=== PATIENT | female | born 1940 | race Caucasian/White ===

== ENCOUNTER 2019-02-02 19:37 | Inpatient (IN) | payer MEDICARE, OTHER, SELFPAY ==
[2019-02-02 19:39] VITALS: BP 147/76; PULSE 105; RESP 13; TEMP 36.9; O2SAT 88; O2SAT 98; BMI 49.4
[2019-02-02 19:50] VITALS: BP 130/62; PULSE 90; RESP 17; O2SAT 99
--- NOTE | 2019-02-02 20:33 | EKG12_ITS ---
Test Reason : Blood Pressure : / mmHG Vent. Rate : 091 BPM Atrial Rate : 091 BPM P-R Int : 162 ms QRS Dur : 080 ms QT Int : 344 ms P-R-T Axes : 071 010 035 degrees QTc Int : 423 ms Normal sinus rhythm Low voltage QRS Borderline ECG Confirmed by PIERRE BRENNAN ([id number]), acquisition editor DEIRDRE DALY ([id number]) on 02/05/2019 11:01:45 AM Referred By: MOUNA Confirmed By:PIERRE BRENNAN
--- NOTE | 2019-02-02 20:36 | ED.DCSUM_ITS ---
- ER Visit Summary Date of Service: 02/02/19 Chief Complaint: Generalized fatigue and dyspnea History of Present Illness: The patient is a 78 F history of prior anemia, hypothyroidism and [id number] diabetes. Patient states for last 2 weeks she just has not had any energy. And is felt short of breath primarily with walking. No chest pain. Mild cough the last several days has been nonproductive. No fever. No abdominal pain. No vomiting or diarrhea. No melena or dysuria. Denies any new leg pain or swelling. No history of DVT or PE. No recent travel, surgery, mobilization or surgery. She denies any hemoptysis. Physical Examination: Well-appearing older female. Vital signs are stable. Pulse ox 98%. She does not look septic or toxic. H EENT exam unremarkable. Neck nontender. No lymphadenopathy. No JVD. Lungs clear all station bilaterally. Heart regular rhythm rate about 100 no murmur. Abdomen is obese but soft. Nontender nondistended. Normal bowel sounds no peritoneal signs. Patient is moving all 4 extremities. Neurovascular intact. Calves are nontender without cords. She does have trace edema both lower extremities which she states is chronic in her baseline. Neurologically she is awake alert with no focal motor deficits. Test Results: Chest x-ray 2 view shows elevated right hemidiaphragm and borderline cardiomegaly. No infiltrate no significant effusion. EKG shows sinus rhythm rate of 91 low voltage but unchanged from prior EKG 2007. CBC is a 7 white count. Hemoglobin 8.5 the most recent one done here was 5 years ago and 11.9. I do not have any old labs available for comparison otherwise. Her e lectrolyte are unremarkable normal creatinine and gap. Glucose of 158. Troponin is normal. TSH is also elevated 7.4 she may need her thyroid medications adjusted. She has chronic hypothyroidism. Emergency Department Course and Treatment: Older female with shortness of breath. Repeat exam unchanged. She denied discussed all of her test results and is comfortable with admission. Treatment Plan: I spoke to the hospitalist about admission. She will be typed and screened. Also school guaiac will be ordered. Disposition: Admission Impression: Acute dyspnea secondary to anemia Acute on chronic hypothyroidism History of diabetes This note was generated with [employer] software. It may contain incorrect words, spelling, and punctuation that were not noted in review of the chart prior to signing ED Disposition - Plan for ED Patient: Referrals: Anisa Ramirez MD [STAFF PHYSICIAN] -
--- NOTE | 2019-02-02 20:45 | RAD_ITS ---
STUDY: X-RAY CHEST REASON FOR EXAM: Female, 78 years old. Chest pain with shortness of breath. TECHNIQUE: PA and lateral views of the chest. COMPARISON: None. FINDINGS: Telemetry wires overlie the chest. There is elevation of the right hemidiaphragm with right basilar atelectasis. Minimal linear atelectasis is also noted at the left lung base. There is no acute infiltrate or mass. There is borderline cardiomegaly. Normal mediastinum and trent. Normal visualized pulmonary arteries. There is minimal atherosclerotic calcification of the aortic arch with tortuosity. There are diffuse degenerative changes of the visualized thoracic spine. Normal visualized ribs, clavicles, and shoulders. There is no demonstrated abnormality of the visualized soft tissue structures of the upper abdomen. RAD/Chest PA and Lateral IMPRESSION: Elevated right hemidiaphragm with bibasilar atelectasis and borderline cardiomegaly. There is no acute infiltrate or mass. Electronically Signed: Micah Lam DO at 21:11 EDT Tel [phone], Service support ,
[2019-02-02 21:02] LABS: Absolute Lymphocyte Count 1.59 X10^3/ul (0.83-4.51); Absolute Neutrophil Count 5.1 X10^3/uL (2.0-7.7); Basophil# 0.03 X10^3/uL; Basophil% 0.4 % (0-1); Eosinophil# 0.12 X10^3/uL; Eosinophils% 1.6 % (0-5); Hematocrit 29.7 % (37-47); Hemoglobin 8.5 g/dl (12.0-15.0); Lymphocyte # 1.59 X10^3/ul (4.0); Lymphocyte % 21.3 % (19-41); Mean Corp Hgb Conc 28.6 g/gl (32-36); Mean Corpuscular Hgb 28.1 pg (27.0-32.0); Mean Platelet Vol. 9.9 fl (6.2-12.0); Monocyte# 0.64 X10^3/uL; Monocyte% 8.6 % (0-10); Neutrophil # 5.08 X10^3/uL (2.7-7.7); Platelet Count 223 K/mm3 (150-450); RBC Distribution Width CV 13.7 % (11.6-14.6); RBC Distribution Width SD 46.9 fl (35.1-43.9); Red Blood Count 3.03 M/mm3 (4.2-5.4); White Blood Count 7.5 K/mm3 (4.4-11.0)
[2019-02-02 21:03] LABS: POSITIVE COUNT NO; POSITIVE DIFFERENTIAL NO; POSITIVE MORPHOLOGY NO
[2019-02-02 21:09] LABS: Anion Gap 3 (5-15); BUN 22 mg/dL (7-18); BUN/Creat Ratio 22.2 RATIO (10-20); Calcium,Total 8.9 mg/dL (8.5-10.1); Chloride 105 mmol/L (98-107); Creatinine, Serum 0.99 mg/dL (0.55-1.02); EST Glomerular Filtration Rate 57 mL/min (>60); Est Glom Filt Rate - Afr Amer 70 mL/min (>60); Estimated Creatinine Clearance 40.44 ml/min; Glucose 156 mg/dL (74-106); Potassium 4.3 mmol/L (3.5-5.1); Sodium Level 139 mmol/L (136-145); Thyroid Stim Hormone (TSH) 7.41 uIU/mL (0.358-3.74)
[2019-02-02 21:16] VITALS: BP 137/68; PULSE 90; RESP 14; TEMP 36.9; O2SAT 98
--- NOTE | 2019-02-02 21:52 | PCM.HP.STD ---
Problem List (1) Acute on chronic anemia Status: Acute (2) GI bleed Status: Suspected Qualifiers: GI bleed type/associated pathology: unspecified gastrointestinal hemorrhage type Qualified Code(s): K92.2 - Gastrointestinal hemorrhage, unspecified (3) Morbid obesity Status: Chronic (4) HTN (hypertension) Status: Chronic Qualifiers: Hypertension type: essential hypertension Qualified Code(s): I10 - Essential (primary) hypertension (5) HLD (hyperlipidemia) Status: Chronic Qualifiers: Hyperlipidemia type: unspecified Qualified Code(s): E78.5 - Hyperlipidemia, unspecified (6) Hypothyroidism Status: Chronic Qualifiers: Hypothyroidism type: unspecified Qualified Code(s): E03.9 - Hypothyroidism, unspecified (7) Diabetes mellitus, type II Status: Chronic Qualifiers: Diabetes mellitus chcf insulin use: without immigration inspector use Diabetes mellitus complication status: with unspecified complications Qualified Code(s): E11.8 - Type 2 diabetes mellitus with unspecified complications History of Present Illness Date of Admission: 02/02/19 Chief Complaint: Weakness, fatigue, SOB, lower Hgb per PCP The patient is a 78 y/o F w/ PMHx: Prior Fe Deficiency Anemia, Hypothyroidism, Diabetes mellitus type II, Morbid Obesity, HTN, HLD who presents to the [facility] ED on 02/02/19 with history of 2-3 weeks of progressively worsening increased fatigue, dyspnea, worse with any exertional attempts with ongoing chronic dark stools secondary to chronic iron usage with PCP evaluation on day of ED evaluation with noted per report market drop in hemoglobin but no clear baseline hemoglobin obtained and unable to reach on-call physician from clinic. Patient states that she has been scoped several years prior possibly by Dr. Modi. She notes that she has had easy GI upset and reflux symptoms recently. Work-up in the ED included T 98.4, heart rate initially 105, BP 147/76, respiratory rate 13, 88% on room air with improvement to 98% on 2 L with no usual oxygen needs, CBC with WBC 7.5, hemoglobin 8.5, platelet 223 without shift, BMP with BUN/creatinine 22/0.99, glucose 156, troponin less than 0.015, TSH 7.41, EKG with low voltage otherwise noted sinus rhythm with no acute evidence of ischemia, chest x-ray with elevated right hemidiaphragm with bibasilar atelectasis and borderline cardiomegaly with no acute cardiopulmonary findings, type and screen requested per discussion with ED physician. Past Medical History Past Medical History (Chronic Problems): Chronic Problems Morbid obesity (Chronic) HTN (hypertension) (Chronic) HLD (hyperlipidemia) (Chronic) Hypothyroidism (Chronic) Diabetes mellitus, type II (Chronic) Allergies No Known Allergies Allergy (Verified 09/12/14 11:51) Home Medications: Ambulatory Orders Medication Instructions Recorded Hydrochlorothiazide [Hctz] 25 mg PO DAILY 09/12/14 Lisinopril [Zestril] 20 mg PO DAILY 09/12/14 Metformin HCl [Glucophage] 1,000 mg PO BIDCM 09/12/14 traMADol [Ultram (G)] 50 mg PO PRN PRN 09/12/14 Levothyroxine [Synthroid] 150 mcg PO DAILY 02/02/19 Multivit-Minerals/Folic Acid 150 mcg PO DAILY 02/02/19 [Centrum Multigummies] Surgical History: - - Right total knee replacement, umbilical hernia repair, cholecystectomy, tonsillectomy, bilateral tubal ligation, bilateral cataract surgery. 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 Paternal History Items: - - Father was a history of heart disease, including [place]. Review of Systems Constitutional: Reports: Malaise, Weakness, Fatigue. Denies: Chills, Fever, Weight Change HEENT: Denies: Head Aches, Sinus Congestion, Sinus Drainage Cardiovascular: Denies: Chest Pain, Palpitations Respiratory: Reports: Shortness of breath upon exertion. Denies: Cough, Shortness of Breath, Shortness of breath at rest, Sputum production, Wheezing Gastrointestinal: Reports: Dyspepsia, - - Chronic dark appearing stools on iron supplementation.. Denies: Abdominal Pain, Nausea, Vomiting Genitourinary: Denies: Dysuria Musculoskeletal: Reports: Back Pain, Joint Pain. Denies: Joint Tenderness Skin: Denies: Rash, Wounds Neurological: Denies: Numbness, Tingling, Focal weakness Psychiatric: Denies: Anxiety, Depression, Homicidal Ideations, Suicidal Ideations Hematologic/ Lymphatic: Reports: Anemia. Denies: Easy Bruising, Easy Bleeding VTE Information - Inpt Only VTE Present on Admission: No VTE Mechan Device Prophylaxis: SCD's VTE Pharm Prophylaxis ordered?: No Reason prophylaxis not ordered:: Medical Contraindication Patient Problems: Active and Suspected Problems Acute on chronic anemia (Acute) GI bleed (Suspected) Subjective: Seated upright in ED bed, fatigued appearance, no distress otherwise. Objective: Physical Examination: General: awake, alert, oriented x 3 and cooperative, seated upright in the ED bed, fatigued appearance, no distress otherwise. Skin: normal color, turgor, no icterus, cyanosis. HEENT: AT/NC, EOMI, PERRLA, mildly dry MM, no carotid bruits or JVD noted. Lungs: CTA bilaterally, moderate effort, moderate decrease BL bases, no rales, ronchi or wheezing. Heart: Regular rate and rhythm; no gallop, rub audible. Abdomen: soft, morbidly obese, NTTP, ND, hyperactive BS, no HSM; however, habitus makes examination very difficult. Extremities: no cyanosis, clubbing, chronic bilateral lower extremity lymphedema with pedal to distal deng 2+ pitting edema, stable. Neurological: patient awake, alert, oriented x 3; cognitive function intact; pupils equally reactive to light and accomodation; cranial nerves II-XII grossly normal, moving all 4 extremities, no focal deficits, strength moderately to severely globally decreased secondary to acute presentation. Psychiatric: affect appears fatigued, no acute evidence of depressive or anxiety feelings. - Physical Exam Vital Signs Temp Pulse Resp BP Pulse Ox 98.4 F 90 14 137/68 H 98 02/02/19 21:16 02/02/19 21:16 02/02/19 21:16 02/02/19 21:16 02/02/19 21:16 Oxygen Flow Rate (L/min) 2 Oxygen Delivery Method Nasal Cannula Weight: 288 lb 2.307 oz Body Mass Index (BMI) 49.4 Laboratory Tests Past 24 Hrs 02/02/19 02/02/19 19:45 19:45 WBC 7.5 RBC 3.03 L Hgb 8.5 L Hct 29.7 L MCV 98.0 MCH 28.1 MCHC 28.6 L RDW 13.7 RDW Differential 46.9 H Plt Count 223 MPV 9.9 Immature Gran % (Auto) 0.100 Neut % (Auto) 68.0 Lymph % (Auto) 21.3 Bowman % (Auto) 8.6 Eos % (Auto) 1.6 Baso % (Auto) 0.4 Absolute Neuts (auto) 5.1 Absolute Lymphs (auto) 1.59 Total Counted Not Reportable Sodium 139 Potassium 4.3 Chloride 105 Carbon Dioxide 31.0 Anion Gap 3 L BUN 22 H Creatinine 0.99 Estim Creat Clear Calc 40.44 Est GFR (MDRD) Af Amer 70 Est GFR (MDRD) Non-Af 57 L BUN/Creatinine Ratio 22.2 H Glucose 156 H Calcium 8.9 Troponin I < 0.015 TSH 7.41 H Assessment/Plan All Active Problems Acute on chronic anemia (Acute) The patient is a 78 y/o F w/ PMHx: Prior Fe Deficiency Anemia, Hypothyroidism, Diabetes mellitus type II, Morbid Obesity, HTN, HLD who presents to the [facility] ED on 02/02/19 with history of 2-3 weeks of progressively worsening increased fatigue, dyspnea, worse with any exertional attempts with ongoing chronic dark stools secondary to chronic iron usage with PCP evaluation on day of ED evaluation with noted per report market drop in hemoglobin but unclear prior level. (1) Suspected Acute GI Bleed w/ resultant Acute on Chronic Blood Loss Anemia, Fe Deficiency Anemia: Admission Hgb 8.5 w/ prior history noting baseline 11 but distant, Dr. Modi consulted who is familiar with patient, referred to ED per PCP secondary to severity of Hgb drop but unclear exact last level, will admit to MS, maintain on IVFs, obtain serial H+H, obtained T+S w/ cross for PRBC administration if appropriate per ED, maintain on IV PPI. Guiac requested additionally. She notes was also obtained at Clinic prior to referral to ED in the office and was negative. (2) Chronic BL LE Lymphedema: CXR w/ mild cardiomegaly, chronic lymphedema stable per discussion with patient, not using compression secondary to difficulty getting on, will place snug GOLDEN wraps, elevation and given presentation complaints will concurrently obtain ECHO. (3) Hypertension: Continue home regimen including lisinopril, hydrochlorothiazide with hold as needed, PRN hydralazine. (4) Hyperlipidemia: Not on regimen, defer to outpatient given acute presentation. (5) Diabetes mellitus type II: Hold oral home regimen, NPO status, accu checks q 6 hours w/ ISS. (6) Hypothyroidism: Elevated TSH in the ED, will continue home Synthroid regimen with pending FT4 with changes as needed pending further lab work-up. (7) Morbid Obesity: Weight loss and lifestyle changes encouraged, nutrition consulted. (8) GERD: IV PPI. (9) DVT Prophylaxis: SCDs, defer chemoprophylaxis given #1 acute presentation. Code Visit OBSV E&M: 77646 Initial observation care L3 - Obs placed secondary to unclear prior level.
--- NOTE | 2019-02-02 21:56 | HP.PCM_ITS ---
Problem List (1) Acute on chronic anemia Status: Acute (2) GI bleed Status: Suspected Qualifiers: GI bleed type/associated pathology: unspecified gastrointestinal hemorrhage type Qualified Code(s): K92.2 - Gastrointestinal hemorrhage, unspecified (3) Morbid obesity Status: Chronic (4) HTN (hypertension) Status: Chronic Qualifiers: Hypertension type: essential hypertension Qualified Code(s): I10 - Essential (primary) hypertension (5) HLD (hyperlipidemia) Status: Chronic Qualifiers: Hyperlipidemia type: unspecified Qualified Code(s): E78.5 - Hyperlipidemia, unspecified (6) Hypothyroidism Status: Chronic Qualifiers: Hypothyroidism type: unspecified Qualified Code(s): E03.9 - Hypothyroidism, unspecified (7) Diabetes mellitus, type II Status: Chronic Qualifiers: Diabetes mellitus prison insulin use: without termite helper use Diabetes mellitus complication status: with unspecified complications Qualified Code(s): E11.8 - Type 2 diabetes mellitus with unspecified complications History of Present Illness Date of Admission: 02/02/19 Chief Complaint: Weakness, fatigue, SOB, lower Hgb per PCP The patient is a 78 y/o F w/ PMHx: Prior Fe Deficiency Anemia, Hypothyroidism, Diabetes mellitus type II, Morbid Obesity, HTN, HLD who presents to the [facility] ED on 02/02/19 with history of 2-3 weeks of progressively worsening increased fatigue, dyspnea, worse with any exertional attempts with ongoing chronic dark stools secondary to chronic iron usage with PCP evaluation on day of ED evaluation with noted per report market drop in hemoglobin but no clear baseline hemoglobin obtained and unable to reach on-call physician from clinic. Patient states that she has been scoped several years prior possibly by Dr. Modi. She notes that she has had easy GI upset and reflux symptoms recently. Work-up in the ED included T 98.4, heart rate initially 105, BP 147/76, respiratory rate 13, 88% on room air with improvement to 98% on 2 L with no usual oxygen needs, CBC with WBC 7.5, hemoglobin 8.5, platelet 223 without shift, BMP with BUN/creatinine 22/0.99, glucose 156, troponin less than 0.015, TSH 7.41, EKG with low voltage otherwise noted sinus rhythm with no acute evidence of ischemia, chest x-ray with elevated right hemidiaphragm with bibasilar atelectasis and borderline cardiomegaly with no acute cardiopulmonary findings, type and screen requested per discussion with ED physician. Past Medical History Past Medical History (Chronic Problems): Chronic Problems Morbid obesity (Chronic) HTN (hypertension) (Chronic) HLD (hyperlipidemia) (Chronic) Hypothyroidism (Chronic) Diabetes mellitus, type II (Chronic) Allergies No Known Allergies Allergy (Verified 09/12/14 11:51) Home Medications: Ambulatory Orders Medication Instructions Recorded Hydrochlorothiazide [Hctz] 25 mg PO DAILY 09/12/14 Lisinopril [Zestril] 20 mg PO DAILY 09/12/14 Metformin HCl [Glucophage] 1,000 mg PO BIDCM 09/12/14 traMADol [Ultram (G)] 50 mg PO PRN PRN 09/12/14 Levothyroxine [Synthroid] 150 mcg PO DAILY 02/02/19 Multivit-Minerals/Folic Acid 150 mcg PO DAILY 02/02/19 [Centrum Multigummies] Surgical History: - - Right total knee replacement, umbilical hernia repair, cholecystectomy, tonsillectomy, bilateral tubal ligation, bilateral cataract surgery. 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 Paternal History Items: - - Father was a history of heart disease, including [place]. Review of Systems Constitutional: Reports: Malaise, Weakness, Fatigue. Denies: Chills, Fever, Weight Change HEENT: Denies: Head Aches, Sinus Congestion, Sinus Drainage Cardiovascular: Denies: Chest Pain, Palpitations Respiratory: Reports: Shortness of breath upon exertion. Denies: Cough, Shortness of Breath, Shortness of breath at rest, Sputum production, Wheezing Gastrointestinal: Reports: Dyspepsia, - - Chronic dark appearing stools on iron supplementation.. Denies: Abdominal Pain, Nausea, Vomiting Genitourinary: Denies: Dysuria Musculoskeletal: Reports: Back Pain, Joint Pain. Denies: Joint Tenderness Skin: Denies: Rash, Wounds Neurological: Denies: Numbness, Tingling, Focal weakness Psychiatric: Denies: Anxiety, Depression, Homicidal Ideations, Suicidal Ideations Hematologic/ Lymphatic: Reports: Anemia. Denies: Easy Bruising, Easy Bleeding VTE Information - Inpt Only VTE Present on Admission: No VTE Mechan Device Prophylaxis: SCD's VTE Pharm Prophylaxis ordered?: No Reason prophylaxis not ordered:: Medical Contraindication Patient Problems: Active and Suspected Problems Acute on chronic anemia (Acute) GI bleed (Suspected) Subjective: Seated upright in ED bed, fatigued appearance, no distress otherwise. Objective: Physical Examination: General: awake, alert, oriented x 3 and cooperative, seated upright in the ED bed, fatigued appearance, no distress otherwise. Skin: normal color, turgor, no icterus, cyanosis. HEENT: AT/NC, EOMI, PERRLA, mildly dry MM, no carotid bruits or JVD noted. Lungs: CTA bilaterally, moderate effort, moderate decrease BL bases, no rales, ronchi or wheezing. Heart: Regular rate and rhythm; no gallop, rub audible. Abdomen: soft, morbidly obese, NTTP, ND, hyperactive BS, no HSM; however, habitus makes examination very difficult. Extremities: no cyanosis, clubbing, chronic bilateral lower extremity lymphedema with pedal to distal deng 2+ pitting edema, stable. Neurological: patient awake, alert, oriented x 3; cognitive function intact; pupils equally reactive to light and accomodation; cranial nerves II-XII grossly normal, moving all 4 extremities, no focal deficits, strength moderately to severely globally decreased secondary to acute presentation. Psychiatric: affect appears fatigued, no acute evidence of depressive or anxiety feelings. - Physical Exam Vital Signs Temp Pulse Resp BP Pulse Ox 98.4 F 90 14 137/68 H 98 02/02/19 21:16 02/02/19 21:16 02/02/19 21:16 02/02/19 21:16 02/02/19 21:16 Oxygen Flow Rate (L/min) 2 Oxygen Delivery Method Nasal Cannula Weight: 288 lb 2.307 oz Body Mass Index (BMI) 49.4 Laboratory Tests Past 24 Hrs 02/02/19 02/02/19 19:45 19:45 WBC 7.5 RBC 3.03 L Hgb 8.5 L Hct 29.7 L MCV 98.0 MCH 28.1 MCHC 28.6 L RDW 13.7 RDW Differential 46.9 H Plt Count 223 MPV 9.9 Immature Gran % (Auto) 0.100 Neut % (Auto) 68.0 Lymph % (Auto) 21.3 Dale % (Auto) 8.6 Eos % (Auto) 1.6 Baso % (Auto) 0.4 Absolute Neuts (auto) 5.1 Absolute Lymphs (auto) 1.59 Total Counted Not Reportable Sodium 139 Potassium 4.3 Chloride 105 Carbon Dioxide 31.0 Anion Gap 3 L BUN 22 H Creatinine 0.99 Estim Creat Clear Calc 40.44 Est GFR (MDRD) Af Amer 70 Est GFR (MDRD) Non-Af 57 L BUN/Creatinine Ratio 22.2 H Glucose 156 H Calcium 8.9 Troponin I < 0.015 TSH 7.41 H Assessment/Plan All Active Problems Acute on chronic anemia (Acute) The patient is a 78 y/o F w/ PMHx: Prior Fe Deficiency Anemia, Hypothyroidism, Diabetes mellitus type II, Morbid Obesity, HTN, HLD who presents to the [facility] ED on 02/02/19 with history of 2-3 weeks of progressively worsening increased fatigue, dyspnea, worse with any exertional attempts with ongoing chronic dark stools secondary to chronic iron usage with PCP evaluation on day of ED evaluation with noted per report market drop in hemoglobin but unclear prior level. (1) Suspected Acute GI Bleed w/ resultant Acute on Chronic Blood Loss Anemia, Fe Deficiency Anemia: Admission Hgb 8.5 w/ prior history noting baseline 11 but distant, Dr. Modi consulted who is familiar with patient, referred to ED per PCP secondary to severity of Hgb drop but unclear exact last level, will admit to MS, maintain on IVFs, obtain serial H+H, obtained T+S w/ cross for PRBC administration if appropriate per ED, maintain on IV PPI. Guiac requested additionally. She notes was also obtained at Clinic prior to referral to ED in the office and was negative. (2) Chronic BL LE Lymphedema: CXR w/ mild cardiomegaly, chronic lymphedema stable per discussion with patient, not using compression secondary to difficulty getting on, will place snug GOLDEN wraps, elevation and given presentation complaints will concurrently obtain ECHO. (3) Hypertension: Continue home regimen including lisinopril, hydrochlorothiazide with hold as needed, PRN hydralazine. (4) Hyperlipidemia: Not on regimen, defer to outpatient given acute presentation. (5) Diabetes mellitus type II: Hold oral home regimen, NPO status, accu checks q 6 hours w/ ISS. (6) Hypothyroidism: Elevated TSH in the ED, will continue home Synthroid regimen with pending FT4 with changes as needed pending further lab work-up. (7) Morbid Obesity: Weight loss and lifestyle changes encouraged, nutrition consulted. (8) GERD: IV PPI. (9) DVT Prophylaxis: SCDs, defer chemoprophylaxis given #1 acute presentation. Code Visit OBSV E&M: 91560 Initial observation care L3 - Obs placed secondary to unclear prior level.
[2019-02-02 22:59] VITALS: BP 132/67; PULSE 89; RESP 16; O2SAT 98
[2019-02-02 23:33] VITALS: BMI 48.6
[2019-02-02 23:39] VITALS: BMI 48.7
[2019-02-02 23:50] VITALS: BP 142/64; PULSE 89; RESP 16; TEMP 36.6; O2SAT 97
[2019-02-03] VITALS (11 sets, daily range): BP systolic 96–120; BP diastolic 51–57; PULSE 77–99; RESP 18; TEMP 36.4–37.7; O2SAT 93–98
[2019-02-03] MEDS: 0.9% NaCl Peripheral Flush Adult/Peds IV (00:20)
[2019-02-03] MEDS: 0.9% Normal Saline 1,000 ML 100 ML IV ×3 (00:20→21:16)
[2019-02-03 00:26] LABS: Bedside Glucose 90 mg/dL (70-110)
[2019-02-03 00:29] LABS: Hematocrit 27.3 % (37-47); Hemoglobin 8.1 g/dl (12.0-15.0)
[2019-02-03 00:35] LABS: Magnesium 1.6 mg/dL (1.6-2.6); T4 Free Direct 0.88 ng/dL (0.76-1.46)
[2019-02-03 03:49] LABS: Absolute Lymphocyte Count 1.51 X10^3/ul (0.83-4.51); Absolute Neutrophil Count 5.1 X10^3/uL (2.0-7.7); Basophil# 0.02 X10^3/uL; Basophil% 0.3 % (0-1); Eosinophil# 0.18 X10^3/uL; Eosinophils% 2.4 % (0-5); Hematocrit 27.5 % (37-47); Hemoglobin 7.9 g/dl (12.0-15.0); Lymphocyte # 1.51 X10^3/ul (4.0); Lymphocyte % 20.3 % (19-41); Mean Corp Hgb Conc 28.7 g/gl (32-36); Mean Corpuscular Hgb 28.1 pg (27.0-32.0); Mean Corpuscular Volume 97.9 fL (81-99); Mean Platelet Vol. 9.5 fl (6.2-12.0); Monocyte# 0.66 X10^3/uL; Monocyte% 8.9 % (0-10); Neutrophil # 5.06 X10^3/uL (2.7-7.7); Platelet Count 202 K/mm3 (150-450); RBC Distribution Width CV 13.7 % (11.6-14.6); RBC Distribution Width SD 46.6 fl (35.1-43.9); Red Blood Count 2.81 M/mm3 (4.2-5.4); White Blood Count 7.4 K/mm3 (4.4-11.0)
[2019-02-03 03:50] LABS: Anion Gap 7 (5-15); BUN 20 mg/dL (7-18); BUN/Creat Ratio 22.1 RATIO (10-20); Calcium,Total 8.7 mg/dL (8.5-10.1); Chloride 105 mmol/L (98-107); Creatinine, Serum 0.91 mg/dL (0.55-1.02); EST Glomerular Filtration Rate 64 mL/min (>60); Est Glom Filt Rate - Afr Amer 77 mL/min (>60); Glucose 117 mg/dL (74-106); Potassium 4.3 mmol/L (3.5-5.1); Sodium Level 143 mmol/L (136-145)
[2019-02-03 03:52] LABS: POSITIVE COUNT NO; POSITIVE DIFFERENTIAL NO; POSITIVE MORPHOLOGY NO
[2019-02-03] MEDS: Levothyroxine 150 MCG Tablet PO (05:26)
[2019-02-03 05:36] LABS: Bedside Glucose 120 mg/dL (70-110)
--- NOTE | 2019-02-03 08:10 | PCM.CONS.B ---
- Consult Date of Consult: 02/03/19 - Reason for Consult Dr. Modi is out of town, patient is being consulted for GI bleed. HISTORY OF PRESENT ILLNESS: Tyra Grady is a 78 y/o WF who presents with anemia. She denies blood in her stools. Denies melena. Denies hematemesis. Denies abdominal pain Denies acid indigestion/heartburn. Mother had colon cancer dx'd in her 60s and she lived to her 90s. Had colonoscopy in [address] Menjivar - no polyps, diverticulosis was seen. EGD/EUS done for possible pancreatic cyst in 2008 Patient states that she had a recent upper and lower endoscopy by Dr. Modi, however, I can find no record of this in [facility]. Her last visit at [facility] general surgery was with regard to a breast and thyroid disease. PAST MEDICAL HISTORY Diabetes mellitus Diverticulosis of colon (without mention of hemorrhage) ? Essential hypertension, benign ? Family history of malignant neoplasm of gastrointestinal tract ? Internal hemorrhoids without mention of complication ? Morbid obesity hypothyroidism CKD stage III ? ? PAST?SURGICAL?HISTORY ? COLONOSCOP W/ OR W/O BRS SPEC ? 01/02/06 ? COLONOSCOP W/ OR W/O BRSH SPEC ? 2005 ? Colonoscopy ? COLONOSCOP W/ OR W/O BRSH SPEC ? 05/27/16 ? Colonoscopy ? D&C, DIAG AND/OR THERAPEUTIC ? ? ? Dilation & curettage ? EXPLORATORY OF ABDOMEN ? 60's ? Laparotomy, exp r/t GB ? INJECT LUMB/SACR FORAMEN EPI SGL ? 06/13 ? L'SCOPE DX W/WO BRUSHINGS/WASHINGS ? ? ? Laparoscopy ? LAPAROSCOPIC CHOLEYCYSTECTOMY ? 08/05/06 ? Cholecystectomy, lap ? LIGATE FALLOPIAN TUBE ? 70's ? Tubal ligation ? REMOVAL OF TONSILS,<12 Y/O ? ? ? Tonsillectomy ? REMV LENS MATERIAL,PHACOFRAGMT ? 09/19/2011 ? Cataract Extraction Right Eye - [facility] - Dr. Cain ? REMV LENS MATERIAL,PHACOFRAGMT ? 10/17/2011 ? Cataract Extraction Left Eye - [facility] ? REPAIR UMBILICAL LEIGHANN,5+Y/O,REDUC ? 08/05/06 ? Hernia repair, umbilical >5yr ? THYROID LEFT FINE NEEDLE ASPIRATION ? 12/28/08 ? U/S bilateral thyroid fna ? THYROID RIGHT FINE NEEDLE ASPIRATION ? 12/28/08 ? U/S bilateral thyroid fna ? TOTAL KNEE REPLACEMENT ? 11/2007 ? right knee done at [facility] by ? ? FAMILY?HISTORY ? Colon Cancer Mother ? ? Stroke Mother ? ? None Father ? ? None Brother ? ? None Brother ? ? Hypertension Mother ? ? SOCIAL?HISTORY ? Smoking status: Former Smoker ? ? Packs/day: 1.00 ? ? Years: 10.00 ? ? Pack years: 10.00 ? ? Types: Cigarettes ? ? Start date: 08/21/2005 ? ? Last attempt to quit: 08/05/2006 ? ? Years since quittin.3 ? Smokeless tobacco: Never UsedSubstance Use Topics ? Alcohol use: No ? Drug use: No ? CURRENT?MEDICATIONS ? cyanocobalamin 1,000 mcg/mL soln ? Syringe with Needle, Safety (3CC SAFETY SYRINGE 23GX1) 3 mL 23 gauge x 1 syrg ? cyanocobalamin 1,000 mcg/mL soln ? fluticasone (FLONASE) 50 mcg/actuation nasal spray ? nystatin (MYCOSTATIN) ointment ? benzonatate (TESSALON PERLE) 100 mg capsule ? hydroCHLOROthiazide (HYDRODIURIL, ESIDRIX) 25 mg tablet ? levothyroxine (SYNTHROID) 150 mcg tablet ? lisinopril (ZESTRIL, PRINIVIL) 20 mg tablet ? metFORMIN (GLUCOPHAGE) 500 mg tablet ? celecoxib (CELEBREX) 200 mg capsule ? nystatin-triamcinolone (MYCOLOG) ointment ? MULTI-VITAMIN ORAL ALLERGIES: denies ?? ? Review of Systems CONSTITUTIONAL: No fevers, chills night sweats, unintended weight loss CARDIOVASCULAR: No chest pain, dyspnea, palpitations, orthopnea, PND, ankle edema. PULM: No dyspnea, unexplained cough. GI: see HPI. : No new urinary complaints, including dysuria, gross hematuria or pyuria. NEURO: No new balance problems, peripheral weakness/paresthesias or numbness of concern. ? PHYSICAL EXAMINATION: BP 134/76 Pulse 95 Resp 16 Ht 5' 3.5 Wt 283 lb General appearance: Well appearing, alert, in no acute distress, well nourished. Skin: Skin color, texture, turgor normal, no suspicious rashes or lesions Neck: patient has a very thick neck, with tenderness in the side of the neck, with carotid bruits b/l. Head: Normocephalic, no masses, lesions, tenderness or abnormalities Eyes: Anicteric sclera. Pupils are equally round and reactive to light. Extraocular movements are intact. Lungs: Lungs clear to auscultation. No wheezing, rhonchi, rales Heart: RRR without murmur, gallop, or rubs. Abd: soft, obese and benign Extremities: No deformities, edema, skin discoloration, clubbing or cyanosis. Good capillary refill. ? ASSESSMENT/PLAN: anemia Plan: Upper and lower endoscopy, tomorrow. I have discussed this patient. I have counseled her as to the risks of the procedure, including but not limited to: infection, bleeding, perforation of the GI tract, inability to complete the procedure, complications of anesthesia, etc. - she understands. She wishes to proceed. The patient was given the opportunity to ask questions and all questions were answered.
--- NOTE | 2019-02-03 08:31 | PN_ITS ---
Patient Problems: Active and Suspected Problems Acute on chronic anemia (Acute) GI bleed (Suspected) Subjective: Patient is a 78-year-old lady with past medical history cigar for diabetes mellitus type 2 hypothyroidism who was sent to the emergency department by the PCP on account of patient complaining of progressive generalized fatigue with low hemoglobin level. On assessment of possible acute on chronic GI bleed was made admitted to regular nursing floor with consultation placed to general surgery for possible endoscopic evaluation. Objective: GENERAL: cooperative HEENT: Atraumatic; EYES; Anicteric, Normal Conjunctiva NECK; supple, normal thyroid, no distended JVD. RESPIRATORY: Diminished to auscultation bilaterally, CARDIOVASCULAR: Regular S1 S2, s GI: soft, non-tender, normoactive bowel sounds, : No Renal angle tenderness; EXTREMITIES: No edema, no clubbing, no cyanosis. MUSCULOSKELETAL: No Joint Tenderness; NEURO: Awake; no lateralizing signs. SKIN: No Rash PSYCH; Normal affect Vitals/I&O's: Vital Signs Temp Pulse Resp BP Pulse Ox 97.5 F L 77 18 96/51 L 96 02/03/19 07:49 02/03/19 07:49 02/03/19 07:49 02/03/19 07:49 02/03/19 07:49 Oxygen Flow Rate (L/min) 2 Oxygen Delivery Method Nasal Cannula Weight: 128.6 kg Body Mass Index (BMI) 48.6 Intake and Output for Last 24 Hours 02/01/19 02/02/19 02/03/19 23:59 23:59 23:59 Intake Total 575 / 575 Balance 575 / 575 Microbiology Past 72 Hours 02/02/19 23:15 Stool Stool Occult Blood (CONSTANTIN) - Final Laboratory Results 02/02/19 19:45: WBC 7.5, RBC 3.03 L, Hgb 8.5 L, Hct 29.7 L, MCV 98.0, MCH 28.1, MCHC 28.6 L, RDW 13.7, RDW Differential 46.9 H, Plt Count 223, MPV 9.9, Immature Gran % (Auto) 0.100, Neut % (Auto) 68.0, Lymph % (Auto) 21.3, Haskell % (Auto) 8.6, Eos % (Auto) 1.6, Baso % (Auto) 0.4, Absolute Neuts (auto) 5.1, Absolute Lymphs (auto) 1.59, Total Counted Not Reportable 02/02/19 19:45: Sodium 139, Potassium 4.3, Chloride 105, Carbon Dioxide 31.0, Anion Gap 3 L, BUN 22 H, Creatinine 0.99, Estim Creat Clear Calc 40.44, Est GFR (MDRD) Af Amer 70, Est GFR (MDRD) Non-Af 57 L, BUN/Creatinine Ratio 22.2 H, G lucose 156 H, Calcium 8.9, Troponin I < 0.015, TSH 7.41 H 02/02/19 19:45: Magnesium 1.6, Free T4 0.88 02/02/19 22:03: Blood Type A POSITIVE, Antibody Screen NEGATIVE 02/03/19 00:15: Hgb 8.1 L, Hct 27.3 L 02/03/19 00:15: POC Glucose 90 02/03/19 03:24: WBC 7.4, RBC 2.81 L, Hgb 7.9 L, Hct 27.5 L, MCV 97.9, MCH 28.1, MCHC 28.7 L, RDW 13.7, RDW Differential 46.6 H, Plt Count 202, MPV 9.5, Immature Gran % (Auto) 0.100, Neut % (Auto) 68.0, Lymph % (Auto) 20.3, Haskell % (Auto) 8.9, Eos % (Auto) 2.4, Baso % (Auto) 0.3, Absolute Neuts (auto) 5.1, Absolute Lymphs (auto) 1.51, Total Counted Not Reportable 02/03/19 03:24: Sodium 143, Potassium 4.3, Chloride 105, Carbon Dioxide 31.0, Anion Gap 7, BUN 20 H, Creatinine 0.91, Estim Creat Clear Calc 44.00, Est GFR (MDRD) Af Amer 77, Est GFR (MDRD) Non-Af 64, BUN/Creatinine Ratio 22.1 H, Glucose 117 H, Calcium 8.7 02/03/19 05:25: POC Glucose 120 H Current Medications Acetaminophen (Tylenol) 650 mg PO Q6H PRN PRN PRN Reason: Non-cardiac pain (mod-severe) Hydrocodone Bitart/Acetaminophen ([place] 5mg-325mg) 1 - 2 tablet PO Q6H PRN PRN PRN Reason: MOD-SEVERE PAIN (4-10/10) Al Hydroxide/Mg Hydroxide (Mylanta Ii) 15 - 30 ml PO Q4H PRN PRN PRN Reason: INDIGESTION Albuterol Sulfate (Ventolin Aerosols) 2.5 mg INHALATION Q2H PRN PRN PRN Reason: dyspnea, wheezing Dextrose (D50w Syringe) 0 gm IV X1 PRN; Protocol PRN Reason: Hypoglycemia Glucagon () 1 mg IM .X1 PRN PRN Reason: Hypoglycemia Hydralazine HCl (Apresoline Iv) 10 mg IV Q4H PRN PRN PRN Reason: SBP > 160 Hydrochlorothiazide (Hctz) 25 mg PO DAILY [place] Sodium Chloride () 1,000 mls @ 100 mls/hr IV .Q10H [facility] Last Admin: 02/03/19 00:20 Dose: 100 mls/hr Pantoprazole Sodium 40 mg/ (Sodium Chloride) 110 mls @ 330 mls/hr IV Q12 [facility] Last Admin: 02/03/19 07:51 Dose: 330 mls/hr Insulin Human Lispro (Humalog Kwikpen (Bkc)) 0 unit SQ Q6 [facility]; Protocol Last Admin: 02/03/19 05:26 Dose: Not Given Levothyroxine Sodium (Synthroid) 150 mcg PO DAILY@0600 [facility] Last Admin: 02/03/19 05:26 Dose: 150 mcg Lisinopril (Zestril) 20 mg PO DAILY [facility] Melatonin (Melatonin) 3 mg PO QHS PRN PRN PRN Reason: INSOMNIA Morphine Sulfate () 1 - 2 mg IV Q4H PRN PRN PRN Reason: PAIN Nutritional Formula (Lactose Free) (Glucerna Shake) 120 ml PO 4X/DAY [facility] Last Admin: 02/03/19 07:45 Dose: Not Given Ondansetron HCl (Zofran) 4 mg IV Q8H PRN PRN PRN Reason: NAUSEA/VOMITING Sodium Chloride () 5 - 15 ml IV UD PRN PRN Reason: SALINE FLUSH Last Admin: 02/03/19 00:20 Dose: 10 ml Medical Necessity - Tobacco Use Smoking Status: Never smoker Tobacco Use: Non-smoker Assessment/Plan All Active Problems Acute on chronic anemia (Acute) Patient is a 78-year-old lady with past medical history cigar for diabetes mellitus type 2 hypothyroidism who was sent to the emergency department by the PCP on account of patient complaining of progressive generalized fatigue with low hemoglobin level. On assessment of possible acute on chronic GI bleed was made admitted to regular nursing floor with consultation placed to general surgery for possible endoscopic evaluation. 1. Symptomatic anemia suspected to be secondary to acute on chronic blood loss possibly from the GI tract. Patient has been admitted to regular nursing floor monitoring H&H with consultation placed to general surgery for possible endoscopic evaluation. As part of patient's evaluation did obtain iron studies which confirmed the presence of iron deficiency anemia and order was given for patient to receive Venofer 2. Hypertension-blood pressure controlled, home medications continued with dose adjustment as needed next 3. Diabetes mellitus type 2 held patient oral agents did continue with Accu- Cheks before meals and at bedtime with sliding scale coverage 4. Morbid obesity with BMI of 48.7 weight loss advised 5. Hypothyroidism-patient is on levothyroxine home dose continued 6. Chronic bilateral lower extremity lymphedema did encourage the use of bilateral HENRIETTA hoses 7. Dyslipidemia 8. GERD on PPI 9. DVT prophylaxis bilateral SCDs Active Medications Acetaminophen (Tylenol) 650 mg PO Q6H PRN PRN PRN Reason: Non-cardiac pain (mod-severe) Hydrocodone Bitart/Acetaminophen ([place] 5mg-325mg) 1 - 2 tablet PO Q6H PRN PRN PRN Reason: MOD-SEVERE PAIN (4-10/10) Al Hydroxide/Mg Hydroxide (Mylanta Ii) 15 - 30 ml PO Q4H PRN PRN PRN Reason: INDIGESTION Albuterol Sulfate (Ventolin Aerosols) 2.5 mg INHALATION Q2H PRN PRN PRN Reason: dyspnea, wheezing Dextrose (D50w Syringe) 0 gm IV X1 PRN; Protocol PRN Reason: Hypoglycemia Glucagon () 1 mg IM .X1 PRN PRN Reason: Hypoglycemia Hydralazine HCl (Apresoline Iv) 10 mg IV Q4H PRN PRN PRN Reason: SBP > 160 Hydrochlorothiazide (Hctz) 25 mg PO DAILY [facility] Last Admin: 02/03/19 08:32 Dose: Not Given Sodium Chloride () 1,000 mls @ 100 mls/hr IV .Q10H [facility] Last Admin: 02/03/19 00:20 Dose: 100 mls/hr Pantoprazole Sodium 40 mg/ (Sodium Chloride) 110 mls @ 330 mls/hr IV Q12 [facility] Last Admin: 02/03/19 07:51 Dose: 330 mls/hr Insulin Human Lispro (Humalog Kwtasiapen (Bkc)) 0 unit SQ Q6 [facility]; Protocol Last Admin: 02/03/19 05:26 Dose: Not Given Levothyroxine Sodium (Synthroid) 150 mcg PO DAILY@0600 [facility] Last Admin: 02/03/19 05:26 Dose: 150 mcg Lisinopril (Zestril) 20 mg PO DAILY [facility] Last Admin: 02/03/19 08:33 Dose: Not Given Melatonin (Melatonin) 3 mg PO QHS PRN PRN PRN Reason: INSOMNIA Morphine Sulfate () 1 - 2 mg IV Q4H PRN PRN PRN Reason: PAIN Nutritional Formula (Lactose Free) (Glucerna Shake) 120 ml PO 4X/DAY [facility] Last Admin: 02/03/19 07:45 Dose: Not Given Ondansetron HCl (Zofran) 4 mg IV Q8H PRN PRN PRN Reason: NAUSEA/VOMITING Sodium Chloride () 5 - 15 ml IV UD PRN PRN Reason: SALINE FLUSH Last Admin: 02/03/19 00:20 Dose: 10 ml Code Visit Inpatient E&M: [id number] [facility] Hosp L3
[2019-02-03 08:55] LABS: Iron 32 ug/dL (50-170); Iron Binding Capacity,Total 411 ug/dL (250-450); PERCENT IRON SATURATION 7.8 % (15.0-55.0)
[2019-02-03 09:16] LABS: Vitamin B12 408 pg/mL (211-911)
[2019-02-03 11:05] LABS: Bedside Glucose 109 mg/dL (70-110)
--- NOTE | 2019-02-03 11:25 | CASEMGMT ---
RN CINDY Face to Face with patient for initial transition planning/care coordination assessment. RN CM introduced self and role at [facility]. Patient lying in bed, alert and oriented, daughter at bedside. Patient willing to participate in assessment and is able to answer all questions appropriately. Care providers, pharmacy, and demographics verified. Patient wishes to discharge home, denies need for home health at this time. Patient states she has no further needs or concerns at this time. CM to follow for discharge planning needs that may arise. PCP: Amada Specialists: guillermo Arevalo Preferred Pharmacy: [facility] [employer] Prescription Benefit: yes Living Will/HPOA: none LNOK: and daughter Living Arrangements: Patient lives with in 1 story home with 2 steps to enter to enter the home Transportation: family DME/HHC: Patient states she has walker, shower chair, and raised toilet at home. Patient denies previous HHC. Disposition Plan: Patient to discharge home with family support and follow-up plans in place. Nadeen MOROCHO, RN, CM
[2019-02-03 16:50] LABS: Bedside Glucose 107 mg/dL (70-110)
--- NOTE | 2019-02-03 17:34 | CHAPLAIN ---
patient is sleeping, a calling card is left in room
[2019-02-03] MEDS: Electrolyte Solution/Peg's 4000 ML PO (19:29)
[2019-02-04] VITALS (35 sets, daily range): BP systolic 94–132; BP diastolic 38–99; PULSE 68–103; RESP 14–23; TEMP 35.7–37.4; O2SAT 86–98; BMI 48.6
[2019-02-04 00:56] LABS: Bedside Glucose 93 mg/dL (70-110)
[2019-02-04 05:48] LABS: Hematocrit 28.4 % (37-47); Hemoglobin 8.1 g/dl (12.0-15.0); Mean Corp Hgb Conc 28.5 g/gl (32-36); Mean Corpuscular Hgb 28.2 pg (27.0-32.0); Mean Platelet Vol. 9.7 fl (6.2-12.0); Platelet Count 201 K/mm3 (150-450); Red Blood Count 2.87 M/mm3 (4.2-5.4); White Blood Count 6.3 K/mm3 (4.4-11.0)
[2019-02-04] MEDS: Levothyroxine 150 MCG Tablet PO (05:57)
[2019-02-04 05:59] LABS: Anion Gap 4 (5-15); BUN 13 mg/dL (7-18); Calcium,Total 8.6 mg/dL (8.5-10.1); Chloride 106 mmol/L (98-107); Creatinine, Serum 0.87 mg/dL (0.55-1.02); EST Glomerular Filtration Rate 67 mL/min (>60); Est Glom Filt Rate - Afr Amer 81 mL/min (>60); Estimated Creatinine Clearance 46.02 ml/min; Glucose 114 mg/dL (74-106); Magnesium 1.9 mg/dL (1.6-2.6); Potassium 4.1 mmol/L (3.5-5.1); Scan Indicated on CBC? Y/N NO; Sodium Level 140 mmol/L (136-145)
[2019-02-04] MEDS: Ondansetron 4 MG/2 ML Vial IV (06:04)
[2019-02-04 06:06] LABS: Bedside Glucose 122 mg/dL (70-110)
--- NOTE | 2019-02-04 07:34 | PCM.PN.HOSP ---
Patient Problems: Active and Suspected Problems Acute on chronic anemia (Acute) GI bleed (Suspected) Subjective: Patient seen currently being prepped to undergo endoscopic evaluation as part of investigation for her severe anemia. She is complained of nausea this morning did receive Zofran without much improvement in order was given for patient to receive Phenergan : Patient hemoglobin still relatively low at 8.1 Objective: GENERAL: Appears sick HEENT: Atraumatic; EYES; Anicteric, Normal Conjunctiva NECK; supple, normal thyroid, RESPIRATORY: Diminished to auscultation bilaterally, CARDIOVASCULAR: Regular S1 S2, s GI: soft, non-tender, normoactive bowel sounds, : No Renal angle tenderness; EXTREMITIES: No edema, no clubbing, no cyanosis. MUSCULOSKELETAL: No Joint Tenderness; NEURO: Awake; no lateralizing signs. SKIN: No Rash PSYCH; Normal affect Vitals/I&O's: Vital Signs Temp Pulse Resp BP Pulse Ox 97.3 F L 90 16 119/52 L 92 02/04/19 07:25 02/04/19 07:31 02/04/19 07:25 02/04/19 07:25 02/04/19 07:25 Oxygen Flow Rate (L/min) 2 Oxygen Delivery Method Nasal Cannula Weight: 128.6 kg Body Mass Index (BMI) 48.6 Intake and Output for Last 24 Hours 02/02/19 02/03/19 02/04/19 23:59 23:59 23:59 Intake Total 2379 / 2379 4777 / 4777 Output Total 300 / 300 1350 / 1350 Balance 2079 / 2079 3427 / 3427 Microbiology Past 72 Hours 02/02/19 23:15 Stool Stool Occult Blood (CONSTANTIN) - Final Laboratory Results 02/03/19 03:24: Iron 32 L, TIBC 411, Iron Saturation 7.8 L 02/03/19 03:24: Vitamin B12 408 02/03/19 10:58: POC Glucose 109 02/03/19 16:46: POC Glucose 107 02/04/19 00:43: POC Glucose 93 02/04/19 04:58: WBC 6.3, RBC 2.87 L, Hgb 8.1 L, Hct 28.4 L, MCV 99.0, MCH 28.2, MCHC 28.5 L, RDW 14.0, RDW Differential 48.0 H, Plt Count 201, MPV 9.7 02/04/19 04:58: Sodium 140, Potassium 4.1, Chloride 106, Carbon Dioxide 30.0, Anion Gap 4 L, BUN 13, Creatinine 0.87, Estim Creat Clear Calc 46.02, Est GFR (MDRD) Af Amer 81, Est GFR (MDRD) Non-Af 67, BUN/Creatinine Ratio 15.0, Glucose 114 H, Calcium 8.6, Magnesium 1.9 02/04/19 05:52: POC Glucose 122 H Current Medications Acetaminophen (Tylenol) 650 mg PO Q6H PRN PRN PRN Reason: Non-cardiac pain (mod-severe) Hydrocodone Bitart/Acetaminophen ([place] 5mg-325mg) 1 - 2 tablet PO Q6H PRN PRN PRN Reason: MOD-SEVERE PAIN (-07/08) Al Hydroxide/Mg Hydroxide (Mylanta Ii) 15 - 30 ml PO Q4H PRN PRN PRN Reason: INDIGESTION Albuterol Sulfate (Ventolin Aerosols) 2.5 mg INHALATION Q2H PRN PRN PRN Reason: dyspnea, wheezing Dextrose (D50w Syringe) 0 gm IV X1 PRN; Protocol PRN Reason: Hypoglycemia Glucagon () 1 mg IM .X1 PRN PRN Reason: Hypoglycemia Hydralazine HCl (Apresoline Iv) 10 mg IV Q4H PRN PRN PRN Reason: SBP > 160 Hydrochlorothiazide (Hctz) 25 mg PO DAILY [facility] Last Admin: 02/03/19 08:32 Dose: Not Given Sodium Chloride () 1,000 mls @ 100 mls/hr IV .Q10H [facility] Last Admin: 02/03/19 21:16 Dose: 100 mls/hr Pantoprazole Sodium 40 mg/ (Sodium Chloride) 110 mls @ 330 mls/hr IV Q12 [facility] Last Admin: 02/03/19 22:24 Dose: 330 mls/hr Insulin Human Lispro (Humalog Kwikpen (Bkc)) 0 unit SQ Q6 [facility]; Protocol Last Admin: 02/04/19 05:57 Dose: Not Given Levothyroxine Sodium (Synthroid) 150 mcg PO DAILY@0600 [facility] Last Admin: 02/04/19 05:57 Dose: 150 mcg Lisinopril (Zestril) 20 mg PO DAILY [facility] Last Admin: 02/03/19 08:33 Dose: Not Given Melatonin (Melatonin) 3 mg PO QHS PRN PRN PRN Reason: INSOMNIA Morphine Sulfate () 1 - 2 mg IV Q4H PRN PRN PRN Reason: PAIN Ondansetron HCl (Zofran) 4 mg IV Q8H PRN PRN PRN Reason: NAUSEA/VOMITING Last Admin: 02/04/19 06:04 Dose: 4 mg Sodium Chloride () 5 - 15 ml IV UD PRN PRN Reason: SALINE FLUSH Last Admin: 02/03/19 00:20 Dose: 10 ml Medical Necessity - Tobacco Use Smoking Status: Never smoker Tobacco Use: Non-smoker Assessment/Plan All Active Problems Acute on chronic anemia (Acute) Patient is a 78-year-old lady with past medical history cigar for diabetes mellitus type 2 hypothyroidism who was sent to the emergency department by the PCP on account of patient complaining of progressive generalized fatigue with low hemoglobin level. On assessment of possible acute on chronic GI bleed was made admitted to regular nursing floor with consultation placed to general surgery for possible endoscopic evaluation. 1. Symptomatic anemia suspected to be secondary to acute on chronic blood loss possibly from the GI tract. Patient has been admitted to regular nursing floor monitoring H&H with consultation placed to general surgery for possible endoscopic evaluation. As part of patient's evaluation did obtain iron studies which confirmed the presence of iron deficiency anemia and order was given for patient to receive Venofer on 02/03/2019. Patient is scheduled to undergo EGD and colonoscopy on 02/04/2019 2. Hypertension-blood pressure controlled, home medications continued with dose adjustment as needed next 3. Diabetes mellitus type 2 held patient oral agents did continue with Accu-Cheks before meals and at bedtime with sliding scale coverage 4. Morbid obesity with BMI of 48.7 weight loss advised 5. Hypothyroidism-patient is on levothyroxine home dose continued 6. Chronic bilateral lower extremity lymphedema did encourage the use of bilateral HENRIETTA hoses 7. Dyslipidemia 8. GERD on PPI 9. DVT prophylaxis bilateral SCDs Code Visit Inpatient E&M: 00047 [facility] Hosp L3
--- NOTE | 2019-02-04 07:40 | PN_ITS ---
Patient Problems: Active and Suspected Problems Acute on chronic anemia (Acute) GI bleed (Suspected) Subjective: Patient seen currently being prepped to undergo endoscopic evaluation as part of investigation for her severe anemia. She is complained of nausea this morning did receive Zofran without much improvement in order was given for patient to receive Phenergan : Patient hemoglobin still relatively low at 8.1 Objective: GENERAL: Appears sick HEENT: Atraumatic; EYES; Anicteric, Normal Conjunctiva NECK; supple, normal thyroid, RESPIRATORY: Diminished to auscultation bilaterally, CARDIOVASCULAR: Regular S1 S2, s GI: soft, non-tender, normoactive bowel sounds, : No Renal angle tenderness; EXTREMITIES: No edema, no clubbing, no cyanosis. MUSCULOSKELETAL: No Joint Tenderness; NEURO: Awake; no lateralizing signs. SKIN: No Rash PSYCH; Normal affect Vitals/I&O's: Vital Signs Temp Pulse Resp BP Pulse Ox 97.3 F L 90 16 119/52 L 92 02/04/19 07:25 02/04/19 07:31 02/04/19 07:25 02/04/19 07:25 02/04/19 07:25 Oxygen Flow Rate (L/min) 2 Oxygen Delivery Method Nasal Cannula Weight: 128.6 kg Body Mass Index (BMI) 48.6 Intake and Output for Last 24 Hours 02/02/19 02/03/19 02/04/19 23:59 23:59 23:59 Intake Total 2379 / 2379 4777 / 4777 Output Total 300 / 300 1350 / 1350 Balance 2079 / 2079 3427 / 3427 Microbiology Past 72 Hours 02/02/19 23:15 Stool Stool Occult Blood (CONSTANTIN) - Final Laboratory Results 02/03/19 03:24: Iron 32 L, TIBC 411, Iron Saturation 7.8 L 02/03/19 03:24: Vitamin B12 408 02/03/19 10:58: POC Glucose 109 02/03/19 16:46: POC Glucose 107 02/04/19 00:43: POC Glucose 93 02/04/19 04:58: WBC 6.3, RBC 2.87 L, Hgb 8.1 L, Hct 28.4 L, MCV 99.0, MCH 28.2, MCHC 28.5 L, RDW 14.0, RDW Differential 48.0 H, Plt Count 201, MPV 9.7 02/04/19 04:58: Sodium 140, Potassium 4.1, Chloride 106, Carbon Dioxide 30.0, Anion Gap 4 L, BUN 13, Creatinine 0.87, Estim Creat Clear Calc 46.02, Est GFR (MDRD) Af Amer 81, Est GFR (MDRD) Non-Af 67, BUN/Creatinine Ratio 15.0, Glucose 114 H, Calcium 8.6, Magnesium 1.9 02/04/19 05:52: POC Glucose 122 H Current Medications Acetaminophen (Tylenol) 650 mg PO Q6H PRN PRN PRN Reason: Non-cardiac pain (mod-severe) Hydrocodone Bitart/Acetaminophen ([place] 5mg-325mg) 1 - 2 tablet PO Q6H PRN PRN PRN Reason: MOD-SEVERE PAIN (-07/08) Al Hydroxide/Mg Hydroxide (Mylanta Ii) 15 - 30 ml PO Q4H PRN PRN PRN Reason: INDIGESTION Albuterol Sulfate (Ventolin Aerosols) 2.5 mg INHALATION Q2H PRN PRN PRN Reason: dyspnea, wheezing Dextrose (D50w Syringe) 0 gm IV X1 PRN; Protocol PRN Reason: Hypoglycemia Glucagon () 1 mg IM .X1 PRN PRN Reason: Hypoglycemia Hydralazine HCl (Apresoline Iv) 10 mg IV Q4H PRN PRN PRN Reason: SBP > 160 Hydrochlorothiazide (Hctz) 25 mg PO DAILY [facility] Last Admin: 02/03/19 08:32 Dose: Not Given Sodium Chloride () 1,000 mls @ 100 mls/hr IV .Q10H [facility] Last Admin: 02/03/19 21:16 Dose: 100 mls/hr Pantoprazole Sodium 40 mg/ (Sodium Chloride) 110 mls @ 330 mls/hr IV Q12 [facility] Last Admin: 02/03/19 22:24 Dose: 330 mls/hr Insulin Human Lispro (Humalog Kwikpen (Bkc)) 0 unit SQ Q6 [facility]; Protocol Last Admin: 02/04/19 05:57 Dose: Not Given Levothyroxine Sodium (Synthroid) 150 mcg PO DAILY@0600 [facility] Last Admin: 02/04/19 05:57 Dose: 150 mcg Lisinopril (Zestril) 20 mg PO DAILY [facility] Last Admin: 02/03/19 08:33 Dose: Not Given Melatonin (Melatonin) 3 mg PO QHS PRN PRN PRN Reason: INSOMNIA Morphine Sulfate () 1 - 2 mg IV Q4H PRN PRN PRN Reason: PAIN Ondansetron HCl (Zofran) 4 mg IV Q8H PRN PRN PRN Reason: NAUSEA/VOMITING Last Admin: 02/04/19 06:04 Dose: 4 mg Sodium Chloride () 5 - 15 ml IV UD PRN PRN Reason: SALINE FLUSH Last Admin: 02/03/19 00:20 Dose: 10 ml Medical Necessity - Tobacco Use Smoking Status: Never smoker Tobacco Use: Non-smoker Assessment/Plan All Active Problems Acute on chronic anemia (Acute) Patient is a 78-year-old lady with past medical history cigar for diabetes mellitus type 2 hypothyroidism who was sent to the emergency department by the PCP on account of patient complaining of progressive generalized fatigue with low hemoglobin level. On assessment of possible acute on chronic GI bleed was made admitted to regular nursing floor with consultation placed to general surgery for possible endoscopic evaluation. 1. Symptomatic anemia suspected to be secondary to acute on chronic blood loss possibly from the GI tract. Patient has been admitted to regular nursing floor monitoring H&H with consultation placed to general surgery for possible endoscopic evaluation. As part of patient's evaluation did obtain iron studies which confirmed the presence of iron deficiency anemia and order was given for patient to receive Venofer on 02/03/2019. Patient is scheduled to undergo EGD and colonoscopy on 02/04/2019 2. Hypertension-blood pressure controlled, home medications continued with dose adjustment as needed next 3. Diabetes mellitus type 2 held patient oral agents did continue with Accu- Cheks before meals and at bedtime with sliding scale coverage 4. Morbid obesity with BMI of 48.7 weight loss advised 5. Hypothyroidism-patient is on levothyroxine home dose continued 6. Chronic bilateral lower extremity lymphedema did encourage the use of bilateral HENRIETTA hoses 7. Dyslipidemia 8. GERD on PPI 9. DVT prophylaxis bilateral SCDs Code Visit Inpatient E&M: 96289 Subs Hosp L3
[2019-02-04] MEDS: 0.9% Normal Saline 1,000 ML 100 ML IV ×3 (07:49→21:44)
--- NOTE | 2019-02-04 10:27 | NURSING ---
CALLED REPORT TO AC. PT LEFT FOR AC.
[2019-02-04 10:51] LABS: Bedside Glucose 109 mg/dL (70-110)
--- NOTE | 2019-02-04 11:15 | EGD_PTH ---
PATIENT: Eh GILLIAM LOC: PCU U#:[id number] AGE/SX: 78/F ROOM: [facility] RE02/03/[address]: Dr. Chau Bob DO : 1940 BED: 1 DIS: 02/08/2019 SPEC #: [id number] RECD: 02/04/19 13:08 STATUS: DIANA RECheli #: [id number] GRACY: 02/04/19 11:[address]: Danna Abarca DEPT: SURGICAL PATHOLOGY RECD BY: Malik Solomon ENTERED: 02/04/19 13:38 SP TYPE: EGD BIOPSY OT DR: MD Dr. Mihaela Germain MD Dr. David Kittoe, MD Dr. 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 CARLOS:lilia 02/05/19 MICROSCOPIC DESCRIPTION Slides are reviewed. GROSS DESCRIPTION Received in fixative is one container labeled with the patient's name and designated duodenal polyp. The specimen consists of a piece of go-pink polyp measuring 0.7 x 0.7 x 0.4 cm. The entire specimen is submitted in one cassette. / CARLOS:lilia 02/04/19 TC:1 CPT: 39035
[2019-02-04] MEDS: Ipratropium/Albuterol Sulfate 3 ML AMPUL.NEB INHALATION ×2 (11:20→22:43)
--- NOTE | 2019-02-04 12:51 | OP.ENDO_ITS ---
02/04/2019 Mihaela Ybarra [address] [id number] Re : Upper GI endoscopy procedure for Eh Grady Dear Dr. Ybarra This procedure was performed on January. My impressions and recommendations are as follows: Impressions : - Normal esophagus. - Normal stomach. - One duodenal polyp. Resected and retrieved. Recommendations : - Ad[facility] the [facility]. - Resume previous diet. - Continue present medications. - Await pathology results. - My office will telephone with pathology results in 1-2 weeks My findings are described in the full procedure note, which is enclosed. If I can be of further assistance, please feel free to contact me at Doctor phone number(s): , Work: . Sincerely, MD Danna Mcgee MD 02/04/2019 12:51:43 PM This report has been signed electronically.
--- NOTE | 2019-02-04 12:54 | OP.ENDO_ITS ---
02/04/2019 Mihaela Ybarra [address] [phone] Re : Colonoscopy procedure for Eh Grady Dear Dr. Ybarra This procedure was performed on January. My impressions and recommendations are as follows: Impressions : - Non-bleeding external and internal hemorrhoids. - No specimens collected. Recommendations : - Repeat colonoscopy in 10 years for screening purposes. - Return to primary care physician PRN. - Continue present medications. My findings are described in the full procedure note, which is enclosed. If I can be of further assistance, please feel free to contact me at Doctor phone number(s): , Work: . Sincerely, MD Danna Mcgee MD 02/04/2019 12:53:33 PM This report has been signed electronically.
--- NOTE | 2019-02-04 14:39 | PCM.PN.BLA ---
Progress Note EGD and colonoscopy essentially negative. Can advance to regular diet and discharged to home from my standpoint.
--- NOTE | 2019-02-04 15:23 | NURSING ---
pt sleepy, will wake to verbal. sats on nc3 89% while sleeping. pt is a mouth breather and has sleep apnea. spoke to rt and venti mask placed on pt. dr stapleton notifed that pt placed on venti mask.
[2019-02-04 16:06] LABS: Bedside Glucose 150 mg/dL (70-110)
--- NOTE | 2019-02-04 16:17 | CHAPLAIN ---
patient is sleeping
--- NOTE | 2019-02-04 17:36 | NURSING ---
PT REMAINS VERY SLEEPY WILL AROUSE TO VERBAL BUT NOT FULLY WAKING UP TO TALK TO NURSING STAFF AND FAMILY. NOTIFIED DR MARIE OF PT BEING SO SLEEPY.
[2019-02-04 18:06] LABS: Base Excess 1 mmol/L (-2 to +2); Bicarbonate 30.1 mmol/L (22-26); Blood Gas Specimen Type ART; FI02 50; PO2 93 mmHG (75-100); SITE R Brachial; SO2 93 % (95-99); Time Given 1745; Total Carbon Dioxide 33 mmol/L; pCO2 91.9 mmHg (35-45); pH 7.12 (7.35-7.45)
--- NOTE | 2019-02-04 18:23 | NURSING ---
pt placed on bipap and tele per orders. at bedside.
--- NOTE | 2019-02-04 18:47 | CPS ---
1800- called [facility] charge nurse with critical values on ABG. The values were then cortexted to Dr. Pratt per his request. 1803-called received from RN that Dr. Pratt would like the patient placed on BiPAP.
--- NOTE | 2019-02-04 19:40 | NURSING ---
pt very lethargic and hard to wake. po 86% on fi02 35%. resp here to draw blood and increase bipap
[2019-02-04 20:01] LABS: Base Excess 1 mmol/L (-2 to +2); Bicarbonate 29.7 mmol/L (22-26); Blood Gas Specimen Type ART; EPAP 8; FI02 35; IPAP 16; PO2 65 mmHG (75-100); RR 14; SITE R Radial; SO2 85 % (95-99); Time Given 1945; Total Carbon Dioxide 32 mmol/L; pCO2 81.1 mmHg (35-45); pH 7.17 (7.35-7.45)
--- NOTE | 2019-02-04 20:05 | NURSING ---
dr jensen up to see pt and informed pt she needs to be moved to icu. family in agreement. pt remains hard to wake. bipap on fi02 at 45 %
--- NOTE | 2019-02-04 20:22 | NURSING ---
report called to lawrence in icu.
[2019-02-04] MEDS: 0.9% NaCl Peripheral Flush Adult/Peds IV ×4 (20:35→23:59)
[2019-02-04] MEDS: Midazolam 2 MG/2 ML Syringe IV (20:35)
--- NOTE | 2019-02-04 20:36 | NURSING ---
Addendum entered by Jerry Quintana 02/04/19 22:18: Succinylcholine given by Dr. Rema Phan MD Original Note: Pt Dr. Phan at bedside for emergent intubation after transfer from [facility] [place]. Procedure and need explained to pt's family per Dr. Phan. 2035 - 2mg IV versed given by Rosette Saenz, RN 2035 - 20mg IV etomidate given by Rosette Saenz, RN 2036 - 100mg IV succinylcholine by Rosette Saenz, RN 2037 - 7.[address] Phan, 22 @ lip, without difficulty, positive color change noted, breath sounds present b/l per Dr. Phan and RT.
[2019-02-04] MEDS: Succinylcholine Chloride 200 MG/10 ML Vial 100 MG IV (20:37)
--- NOTE | 2019-02-04 20:43 | PCM.HOSP.N ---
Hospitalist Note Contacted by respiratory therapy and nursing staff. Patient following endoscopy is very lethargic and BiPAP was initiated. Repeat ABG since then have not improved and patient remains very lethargic. Intubation Note: Patient with evidence of respiratory and/or impending distress. Medications administered: Versed, etomidate initially with visualization of vocal cords, not open, succinylcholine then administered additionally. ETT size: 7.5 Patient intubated in standard fashion with visualization of the vocal cords and passage of the ETT. Positioning verified with auscultation. Post-intubation CXR requested. Patient with transition to ICU for this intervention with consultation to ICU physician. Given patient's sensitivity to anesthetics discussed with nursing staff with propofol ordered but may need to hold this agent for prolonged period prior to weaning trials. Code Visit Procedures: 59462 Insert Emergency Airway
[2019-02-04] MEDS: Propofol 10MG/Ml 1,000 MG/100 ML Bottle 7.716 MG CONT INF ×2 (20:45→23:53)
--- NOTE | 2019-02-04 20:48 | RAD_ITS ---
STUDY: X-RAY CHEST REASON FOR EXAM: Female, 78 years old. Intubation. TECHNIQUE: Single AP portable view of the chest. COMPARISON: 02 Feb 2019. FINDINGS: Endotracheal tube overlying the thoracic inlet, may advance approximately 2 to 3 cm to mid trachea as clinically warranted. NG tube travels through the GE junction with tip overlying the mid stomach. Low lung volume and interstitial crowding is present with basilar atelectasis. There is no demonstrated pleural abnormality. Normal size heart. Normal mediastinum and trent. Normal visualized pulmonary arteries. Normal visualized aortic arch and descending thoracic aorta. Normal visualized thoracic spine. Normal visualized ribs, clavicles, and shoulders. There is no demonstrated abnormality of the visualized soft tissue structures of the upper abdomen. RAD/Chest 1 View (Portable) IMPRESSION: 1. Endotracheal tube overlying the thoracic inlet, may advance approximately 2 cm to mid trachea as clinically warranted. 2. Low lung volume and interstitial crowding with underlying interstitial edema not excluded. Electronically Signed: Darnell Blanton DO at 21:53 EDT , Service support ,
--- NOTE | 2019-02-04 20:48 | RAD_ITS ---
STUDY: X-RAY - ABDOMEN/PELVIS REASON FOR EXAM: Female, 78 years old. NG tube placement. TECHNIQUE: Single AP view of the abdomen / pelvis. COMPARISON: None. FINDINGS: Normal visualized lung bases. NG tube traverse the GE junction with tip overlying the mid stomach. There is an unremarkable bowel gas pattern. There is no demonstrated free abdominal air. The visualized liver, spleen and kidneys are grossly normal in size and morphology. Normal soft tissue structures. Normal visualized osseous structures. RAD/Abdomen Single View (Portable) IMPRESSION: NG tube tip overlying the mid stomach in proper position. Electronically Signed: Darnell Blanton DO at 21:54 EDT , Service support ,
[2019-02-04 21:14] LABS: Absolute Lymphocyte Count 1.03 X10^3/ul (0.83-4.51); Absolute Neutrophil Count 7.1 X10^3/uL (2.0-7.7); Basophil# 0.02 X10^3/uL; Basophil% 0.2 % (0-1); Eosinophil# 0.01 X10^3/uL; Eosinophils% 0.1 % (0-5); Hematocrit 28.1 % (37-47); Hemoglobin 7.9 g/dl (12.0-15.0); Lymphocyte # 1.03 X10^3/ul (4.0); Lymphocyte % 11.7 % (19-41); Mean Corp Hgb Conc 28.1 g/gl (32-36); Mean Corpuscular Hgb 28.1 pg (27.0-32.0); Mean Platelet Vol. 9.3 fl (6.2-12.0); Monocyte# 0.55 X10^3/uL; Monocyte% 6.3 % (0-10); Neutrophil # 7.13 X10^3/uL (2.7-7.7); Neutrophil % 81.4 % (47-70); Platelet Count 191 K/mm3 (150-450); RBC Distribution Width CV 14.2 % (11.6-14.6); RBC Distribution Width SD 52.1 fl (35.1-43.9); Red Blood Count 2.81 M/mm3 (4.2-5.4); White Blood Count 8.8 K/mm3 (4.4-11.0)
[2019-02-04 21:17] LABS: POSITIVE COUNT NO; POSITIVE DIFFERENTIAL NO; POSITIVE MORPHOLOGY NO
[2019-02-04] MEDS: Chlorhexidine 15 ML PO (21:45)
[2019-02-04 22:16] LABS: Base Excess 2 mmol/L (-2 to +2); Bicarbonate 27.2 mmol/L (22-26); Blood Gas Specimen Type ART; FI02 50; Mode A-C; O2 Delivery Device Vent; PEEP 5; PO2 115 mmHG (75-100); RR 16; SITE L Radial; SO2 98 % (95-99); Time Given 2204; Total Carbon Dioxide 29 mmol/L; Vt 500; pCO2 50.3 mmHg (35-45); pH 7.34 (7.35-7.45)
[2019-02-04 22:30] LABS: AST(SGOT) 15 U/L (15-37); Alanine Aminotransfer ALT/SGPT 18 U/L (13-56); Albumin, Serum 3.2 g/dL (3.2-5.0); Alkaline Phosphatase 76 U/L (45-117); Anion Gap 5 (5-15); BUN 13 mg/dL (7-18); BUN/Creat Ratio 14.5 RATIO (10-20); Calcium,Total 8.8 mg/dL (8.5-10.1); Chloride 108 mmol/L (98-107); Creatinine, Serum 0.89 mg/dL (0.55-1.02); EST Glomerular Filtration Rate 65 mL/min (>60); Est Glom Filt Rate - Afr Amer 78 mL/min (>60); Estimated Creatinine Clearance 44.99 ml/min; Globulin 3.2 g/dL (2.2-4.2); Glucose 116 mg/dL (74-106); Magnesium 1.8 mg/dL (1.6-2.6); Phosphorus 3.6 mg/dL (2.5-4.9); Potassium 4.6 mmol/L (3.5-5.1); Protein, Total 6.4 g/dL (6.4-8.2); Sodium Level 143 mmol/L (136-145)
[2019-02-04 23:31] LABS: Bedside Glucose 108 mg/dL (70-110)
[2019-02-05] VITALS (31 sets, daily range): BP systolic 95–150; BP diastolic 45–98; PULSE 69–107; RESP 12–25; TEMP 37.1–38.2; O2SAT 91–100
[2019-02-05] MEDS: Ipratropium/Albuterol Sulfate 3 ML AMPUL.NEB INHALATION ×2 (02:11→06:49)
[2019-02-05] MEDS: 0.9% NaCl Peripheral Flush Adult/Peds IV ×3 (04:34→21:56)
[2019-02-05 04:44] LABS: Hematocrit 25.4 % (37-47); Hemoglobin 7.3 g/dl (12.0-15.0); Mean Corp Hgb Conc 28.7 g/gl (32-36); Mean Corpuscular Hgb 28.2 pg (27.0-32.0); Mean Corpuscular Volume 98.1 fL (81-99); Mean Platelet Vol. 9.4 fl (6.2-12.0); Platelet Count 171 K/mm3 (150-450); RBC Distribution Width CV 13.8 % (11.6-14.6); RBC Distribution Width SD 47.1 fl (35.1-43.9); Red Blood Count 2.59 M/mm3 (4.2-5.4)
--- NOTE | 2019-02-05 04:48 | CPS ---
Critical results read to Dr. Phan
[2019-02-05 04:54] LABS: Anion Gap 8 (5-15); BUN 13 mg/dL (7-18); BUN/Creat Ratio 14.7 RATIO (10-20); Calcium,Total 8.6 mg/dL (8.5-10.1); Chloride 108 mmol/L (98-107); Creatinine, Serum 0.89 mg/dL (0.55-1.02); EST Glomerular Filtration Rate 66 mL/min (>60); Est Glom Filt Rate - Afr Amer 79 mL/min (>60); Estimated Creatinine Clearance 44.99 ml/min; Glucose 104 mg/dL (74-106); Potassium 3.7 mmol/L (3.5-5.1); Sodium Level 143 mmol/L (136-145)
[2019-02-05 05:04] LABS: Scan Indicated on CBC? Y/N NO
[2019-02-05 05:46] LABS: Bedside Glucose 104 mg/dL (70-110)
[2019-02-05] MEDS: Propofol 10MG/Ml 1,000 MG/100 ML Bottle 7.716 MG CONT INF (06:37)
--- NOTE | 2019-02-05 06:37 | PCM.CON.CC ---
Reason for Consult Date of Consultation: 02/05/19 Reason for Consultation: Acute respiratory failure History of Present Illness: The patient is a 78-year-old female, with a history as outlined below, who initially presented to the emergency department 3 days ago with generalized fatigue and shortness of breath. On presentation to the emergency department, the patient was noted to be afebrile and hemodynamically stable. She was requiring 4 L/min of supplemental oxygen to maintain appropriate saturations. Initial laboratory evaluation revealed no evidence of a leukocytosis. The patient was noted to have a hemoglobin of 8.5. Chemistry profile was largely unremarkable. Plain film chest x-ray revealed an elevated right hemidiaphragm with associated basilar atelectasis. Stool for occult blood was negative. The patient was initially admitted to the hospital with acute shortness of breath, which is felt to be secondary to her underlying anemia. General surgery was subsequently consulted. On February 04, the patient underwent both upper and lower endoscopy procedures. Her lower endoscopy revealed nonbleeding external and internal hemorrhoids. Upper endoscopy revealed a normal esophagus and stomach. The patient was provided with conscious sedation for her endoscopy procedures. Postprocedure, the patient was noted to be extremely lethargic and drowsy. During the early evening of February 04, the patient was noted to have acute CO2 retention with a PCO2 of 92. Attempt was made to place the patient on BiPAP, which led to little improvement in her mentation and overall acid-base status. Therefore, the patient was transferred to the medical intensive care unit, where she was intubated. Following intubation and initiation of invasive mechanical ventilatory support, the patient's PCO2 level improved. She currently has a low-grade fever, but has remained hemodynamically stable with an FiO2 requirement of 40%. Her hemoglobin this morning was noted to be 7.3 g/dL. Past Medical History Past Medical History (Chronic Problems): Chronic Problems Morbid obesity (Chronic) HTN (hypertension) (Chronic) HLD (hyperlipidemia) (Chronic) Hypothyroidism (Chronic) Diabetes mellitus, type II (Chronic) Allergies No Known Allergies Allergy (Verified 09/12/14 11:51) Home Medications: Ambulatory Orders Medication Instructions Recorded Hydrochlorothiazide [Hctz] 25 mg PO DAILY 09/12/14 Lisinopril [Zestril] 20 mg PO DAILY 09/12/14 Metformin HCl [Glucophage] 1,000 mg PO BIDCM 09/12/14 traMADol [Ultram (G)] 50 mg PO PRN PRN 09/12/14 Levothyroxine [Synthroid] 150 mcg PO DAILY 02/02/19 Multivit-Minerals/Folic Acid 150 mcg PO DAILY 02/02/19 [Centrum Multigummies] Surgical History: - - Right total knee replacement, umbilical hernia repair, cholecystectomy, tonsillectomy, bilateral tubal ligation, bilateral cataract surgery. 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 Paternal History Items: - - Father was a history of heart disease, including [place]. Review of Systems Unable to obtain accurate/complete ROS d/t: Due to current intubation and mechanical ventilation status. Patient Problems: Active and Suspected Problems Acute on chronic anemia (Acute) GI bleed (Suspected) Objective: The patient's most recent lab work, culture data and imaging studies have all been personally reviewed. - Physical Exam General: - - Intubated and mechanically ventilated. Currently tolerating spontaneous mode of mechanical ventilation. HEENT: Atraumatic, PERRLA, Normocephalic Oral: No Gingival or Mucosal Lesions/ Ulcerations, - - Endotracheal and OG tubes currently in place Neck: Supple, No Nodes, Trachea Midline Lungs: No rhonchi, No wheeze, No rales, Diminished Cardiovascular: Normal S1, Normal S2, Murmur, Tachycardic Abdomen: Bowel Sounds Present, Soft, Non Tender, Obese Extremities: No clubbing, No cyanosis, Edema, - - Wrapped LE's. Skin: No breakdown Musculoskeletal: No Muscle Wasting Lymphatic: No Cervical, Supraclavicular, or Inguinal Adenopathy Neurological: - - No focal deficits. Alert and following commands appropriately. Vital Signs Temp Pulse Resp BP Pulse Ox 100.6 F H 69 15 114/58 L 96 02/05/19 06:00 02/05/19 06:00 02/05/19 06:00 02/05/19 06:00 02/05/19 06:00 Oxygen Flow Rate (L/min) 12 Oxygen Delivery Method Mechanical Ventilator Weight: 297 lb 6.457 oz Body Mass Index (BMI) 48.6 Finger Stick Blood Glucose 104 Intake and Output for Last 24 Hours 02/03/19 02/04/19 02/05/19 23:59 23:59 23:59 Intake Total 2379 / 2379 6335.7 / 6335.7 652 / 652 Output Total 300 / 300 1850 / 1850 300 / 300 Balance 2079 / 2079 4485.7 / 4485.7 352 / 352 Microbiology Past 72 Hours 02/02/19 23:15 Stool Occult Blood (CONSTANTIN) - Final Stool Laboratory Tests Past 24 Hrs 02/04/19 02/04/19 02/04/19 17:57 19:51 21:00 WBC 8.8 RBC 2.81 L Hgb 7.9 L Hct 28.1 L MCV 100.0 H MCH 28.1 MCHC 28.1 L RDW 14.2 RDW Differential 52.1 H Plt Count 191 MPV 9.3 Immature Gran % (Auto) 0.300 Neut % (Auto) 81.4 H Lymph % (Auto) 11.7 L Walsh % (Auto) 6.3 Eos % (Auto) 0.1 Baso % (Auto) 0.2 Absolute Neuts (auto) 7.1 Absolute Lymphs (auto) 1.03 Total Counted Not Reportable Specimen Type ART ART Sample Site R Brachial R Radial pH 7.12 L* 7.17 L* Bicarbonate Actual 30.1 H 29.7 H POC Total CO2 33 32 Base Excess 1 1 O2 Saturation 93 L 85 L O2 % 50 35 ABG pCO2 91.9 H* 81.1 H* ABG pO2 93 65 L Respiration Rate 14 O2 Delivery Device Vent Mask Bi / C PAP Vent Mode Tidal Volume POC PEEP EPAP 8 IPAP 16 Blood Gas Notified Whom HOSP HOSP Blood Gas Notified Time 7336 065 Sodium Potassium Chloride Carbon Dioxide Anion Gap BUN Creatinine Estim Creat Clear Calc Est GFR (MDRD) Af Amer Est GFR (MDRD) Non-Af BUN/Creatinine Ratio Glucose Calcium Phosphorus Magnesium Total Bilirubin AST ALT Alkaline Phosphatase Ammonia Troponin I Total Protein Albumin Globulin Albumin/Globulin Ratio 02/04/19 02/04/19 02/04/19 21:00 22:00 22:09 WBC RBC Hgb Hct MCV MCH MCHC RDW RDW Differential Plt Count MPV Immature Gran % (Auto) Neut % (Auto) Lymph % (Auto) Walsh % (Auto) Eos % (Auto) Baso % (Auto) Absolute Neuts (auto) Absolute Lymphs (auto) Total Counted Specimen Type ART Sample Site L Radial pH 7.34 L Bicarbonate Actual 27.2 H POC Total CO2 29 Base Excess 2 O2 Saturation 98 O2 % 50 ABG pCO2 50.3 H ABG pO2 115 H Respiration Rate 16 O2 Delivery Device Vent Vent Mode A-C Tidal Volume 500 POC PEEP 5 EPAP IPAP Blood Gas Notified Whom [facility] Blood Gas Notified Time 2204 Sodium 143 Potassium 4.6 Chloride 108 H Carbon Dioxide 30.0 Anion Gap 5 BUN 13 Creatinine 0.89 Estim Creat Clear Calc 44.99 Est GFR (MDRD) Af Amer 78 Est GFR (MDRD) Non-Af 65 BUN/Creatinine Ratio 14.5 Glucose 116 H Calcium 8.8 Phosphorus 3.6 Magnesium 1.8 Total Bilirubin 0.50 AST 15 ALT 18 Alkaline Phosphatase 76 Ammonia 31.0 Troponin I < 0.015 Total Protein 6.4 Albumin 3.2 Globulin 3.2 Albumin/Globulin Ratio 1.0 02/05/19 02/05/19 04:35 04:35 WBC 8.0 RBC 2.59 L Hgb 7.3 L Hct 25.4 L MCV 98.1 MCH 28.2 MCHC 28.7 L RDW 13.8 RDW Differential 47.1 H Plt Count 171 MPV 9.4 Immature Gran % (Auto) Neut % (Auto) Lymph % (Auto) Walsh % (Auto) Eos % (Auto) Baso % (Auto) Absolute Neuts (auto) Absolute Lymphs (auto) Total Counted Specimen Type Sample Site pH Bicarbonate Actual POC Total CO2 Base Excess O2 Saturation O2 % ABG pCO2 ABG pO2 Respiration Rate O2 Delivery Device Vent Mode Tidal Volume POC PEEP EPAP IPAP Blood Gas Notified Whom Blood Gas Notified Time Sodium 143 Potassium 3.7 Chloride 108 H Carbon Dioxide 27.0 Anion Gap 8 BUN 13 Creatinine 0.89 Estim Creat Clear Calc 44.99 Est GFR (MDRD) Af Amer 79 Est GFR (MDRD) Non-Af 66 BUN/Creatinine Ratio 14.7 Glucose 104 Calcium 8.6 Phosphorus Magnesium Total Bilirubin AST ALT Alkaline Phosphatase Ammonia Troponin I Total Protein Albumin Globulin Albumin/Globulin Ratio POC Glucose 02/05/19 02/04/19 02/04/19 05:42 23:22 16:02 POC Glucose 104 108 150 H 02/04/19 10:44 POC Glucose 109 Clinical Impression(s) from Imaging Studies Chest X-Ray 02/02/19 20:45 IMPRESSION: Elevated right hemidiaphragm with bibasilar atelectasis and borderline cardiomegaly. There is no acute infiltrate or mass. Electronically Signed: Micah Lam DO at 21:11 EDT Tel [phone], Service support , Chest X-Ray 02/04/19 20:48 IMPRESSION: 1. Endotracheal tube overlying the thoracic inlet, may advance approximately 2 cm to mid trachea as clinically warranted. 2. Low lung volume and interstitial crowding with underlying interstitial edema not excluded. Electronically Signed: Darnell Blanton DO at 21:53 EDT , Service support , KUB X-Ray 02/04/19 20:48 IMPRESSION: NG tube tip overlying the mid stomach in proper position. Electronically Signed: Darnell Blanton DO at 21:54 EDT , Service support , Assessment/Plan Active and Suspected Problems Acute on chronic anemia (Acute) GI bleed (Suspected) RECOMMENDATIONS: 1. Proceed with a trial of extubation this morning. 2. Once extubated, wean supplemental oxygen to maintain saturations at or above 90%. 3. Avoid sedating medications. 4. Perform bedside swallow evaluation and advance diet accordingly. 5. Encourage incentive spirometer use and mobilize patient as tolerated. 6. Remove Mcduffie catheter. 7. Recommend empiric BiPAP utilization with naps and nightly. 8. Recommend outpatient pulmonary follow-up so that a diagnostic polysomnogram can be completed. IMPRESSIONS: 1. Acute hypoxemic and hypercarbic respiratory failure Likely secondary to sedative medication induced alveolar hypoventilation. Attempts at noninvasive positive pressure ventilation were unsuccessful. The patient did require eventual intubation. Nevertheless, her acid-base status has improved with invasive mechanical ventilatory support. Her mentation is also significantly improved as of this morning. The patient is alert and following commands appropriately. Therefore, we will plan to proceed with a trial of extubation. Once extubated, a bedside swallow evaluation can be performed and her diet advanced accordingly. We will plan to wean supplemental oxygen to maintain saturations at or above 90%. Encourage incentive spirometer use and mobilize patient as tolerated. Given the patient's body habitus and concerns for potential underlying sleep disordered breathing, recommend empiric utilization of BiPAP with naps and nightly. 2. Anemia The patient is status post upper and lower endoscopy with management being dictated by hospitalist and general surgery. 3. Suspected obstructive sleep apnea Recommend outpatient pulmonary follow-up so that a diagnostic polysomnogram can be completed. In the interim, recommend utilization of BiPAP therapy with naps and nightly, as ordered. 3. Morbid obesity/hypertension/hypothyroidism/diabetes/hyperlipidemia/GERD Complicates care, management, recovery and prognosis. Continue home medications as indicated. TIME: 40 minutes of critical care time, independent of procedures, was spent addressing the patient's acute combined respiratory failure, symptomatic anemia, suspected obstructive sleep apnea, review of all data and collaboration with the care team. ([id number]) Code Visit 9xxxx: [id number] Critical care first hour
--- NOTE | 2019-02-05 06:45 | CON.PCM_ITS ---
Reason for Consult Date of Consultation: 02/05/19 Reason for Consultation: Acute respiratory failure History of Present Illness: The patient is a 78-year-old female, with a history as outlined below, who initially presented to the emergency department 3 days ago with generalized fatigue and shortness of breath. On presentation to the emergency department, the patient was noted to be afebrile and hemodynamically stable. She was requiring 4 L/min of supplemental oxygen to maintain appropriate saturations. Initial laboratory evaluation revealed no evidence of a leukocytosis. The patient was noted to have a hemoglobin of 8.5. Chemistry profile was largely unremarkable. Plain film chest x-ray revealed an elevated right hemidiaphragm with associated basilar atelectasis. Stool for occult blood was negative. The patient was initially admitted to the hospital with acute shortness of breath, which is felt to be secondary to her underlying anemia. General surgery was subsequently consulted. On February 04, the patient underwent both upper and lower endoscopy procedures. Her lower endoscopy revealed nonbleeding external and internal hemorrhoids. Upper endoscopy revealed a normal esophagus and stomach. The patient was provided with conscious sedation for her endoscopy procedures. Postprocedure, the patient was noted to be extremely lethargic and drowsy. During the early evening of February 04, the patient was noted to have acute CO2 retention with a PCO2 of 92. Attempt was made to place the patient on BiPAP, which led to little improvement in her mentation and overall acid-base status. Therefore, the patient was transferred to the medical intensive care unit, where she was intubated. Following intubation and initiation of invasive mechanical ventilatory support, the patient's PCO2 level improved. She currently has a low-grade fever, but has remained hemodynamically stable with an FiO2 requirement of 40%. Her hemoglobin this morning was noted to be 7.3 g/dL. Past Medical History Past Medical History (Chronic Problems): Chronic Problems Morbid obesity (Chronic) HTN (hypertension) (Chronic) HLD (hyperlipidemia) (Chronic) Hypothyroidism (Chronic) Diabetes mellitus, type II (Chronic) Allergies No Known Allergies Allergy (Verified 09/12/14 11:51) Home Medications: Ambulatory Orders Medication Instructions Recorded Hydrochlorothiazide [Hctz] 25 mg PO DAILY 09/12/14 Lisinopril [Zestril] 20 mg PO DAILY 09/12/14 Metformin HCl [Glucophage] 1,000 mg PO BIDCM 09/12/14 traMADol [Ultram (G)] 50 mg PO PRN PRN 09/12/14 Levothyroxine [Synthroid] 150 mcg PO DAILY 02/02/19 Multivit-Minerals/Folic Acid 150 mcg PO DAILY 02/02/19 [Centrum Multigummies] Surgical History: - - Right total knee replacement, umbilical hernia repair, cholecystectomy, tonsillectomy, bilateral tubal ligation, bilateral cataract surgery. 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 Paternal History Items: - - Father was a history of heart disease, including [place]. Review of Systems Unable to obtain accurate/complete ROS d/t: Due to current intubation and mechanical ventilation status. Patient Problems: Active and Suspected Problems Acute on chronic anemia (Acute) GI bleed (Suspected) Objective: The patient's most recent lab work, culture data and imaging studies have all been personally reviewed. - Physical Exam General: - - Intubated and mechanically ventilated. Currently tolerating spontaneous mode of mechanical ventilation. HEENT: Atraumatic, PERRLA, Normocephalic Oral: No Gingival or Mucosal Lesions/ Ulcerations, - - Endotracheal and OG tubes currently in place Neck: Supple, No Nodes, Trachea Midline Lungs: No rhonchi, No wheeze, No rales, Diminished Cardiovascular: Normal S1, Normal S2, Murmur, Tachycardic Abdomen: Bowel Sounds Present, Soft, Non Tender, Obese Extremities: No clubbing, No cyanosis, Edema, - - Wrapped LE's. Skin: No breakdown Musculoskeletal: No Muscle Wasting Lymphatic: No Cervical, Supraclavicular, or Inguinal Adenopathy Neurological: - - No focal deficits. Alert and following commands appropriately. Vital Signs Temp Pulse Resp BP Pulse Ox 100.6 F H 69 15 114/58 L 96 02/05/19 06:00 02/05/19 06:00 02/05/19 06:00 02/05/19 06:00 02/05/19 06:00 Oxygen Flow Rate (L/min) 12 Oxygen Delivery Method Mechanical Ventilator Weight: 297 lb 6.457 oz Body Mass Index (BMI) 48.6 Finger Stick Blood Glucose 104 Intake and Output for Last 24 Hours 02/03/19 02/04/19 02/05/19 23:59 23:59 23:59 Intake Total 2379 / 2379 6335.7 / 6335.7 652 / 652 Output Total 300 / 300 1850 / 1850 300 / 300 Balance 2079 / 2079 4485.7 / 4485.7 352 / 352 Microbiology Past 72 Hours 02/02/19 23:15 Stool Occult Blood (CONSTANTIN) - Final Stool Laboratory Tests Past 24 Hrs 02/04/19 02/04/19 02/04/19 17:57 19:51 21:00 WBC 8.8 RBC 2.81 L Hgb 7.9 L Hct 28.1 L MCV 100.0 H MCH 28.1 MCHC 28.1 L RDW 14.2 RDW Differential 52.1 H Plt Count 191 MPV 9.3 Immature Gran % (Auto) 0.300 Neut % (Auto) 81.4 H Lymph % (Auto) 11.7 L [place] % (Auto) 6.3 Eos % (Auto) 0.1 Baso % (Auto) 0.2 Absolute Neuts (auto) 7.1 Absolute Lymphs (auto) 1.03 Total Counted Not Reportable Specimen Type ART ART Sample Site R Brachial R Radial pH 7.12 L* 7.17 L* Bicarbonate Actual 30.1 H 29.7 H POC Total CO2 33 32 Base Excess 1 1 O2 Saturation 93 L 85 L O2 % 50 35 ABG pCO2 91.9 H* 81.1 H* ABG pO2 93 65 L Respiration Rate 14 O2 Delivery Device Vent Mask Bi / C PAP Vent Mode Tidal Volume POC PEEP EPAP 8 IPAP 16 Blood Gas Notified Whom HOSP HOSP Blood Gas Notified Time 7370 143 Sodium Potassium Chloride Carbon Dioxide Anion Gap BUN Creatinine Estim Creat Clear Calc Est GFR (MDRD) Af Amer Est GFR (MDRD) Non-Af BUN/Creatinine Ratio Glucose Calcium Phosphorus Magnesium Total Bilirubin AST ALT Alkaline Phosphatase Ammonia Troponin I Total Protein Albumin Globulin Albumin/Globulin Ratio 02/04/19 02/04/19 02/04/19 21:00 22:00 22:09 WBC RBC Hgb Hct MCV MCH MCHC RDW RDW Differential Plt Count MPV Immature Gran % (Auto) Neut % (Auto) Lymph % (Auto) [place] % (Auto) Eos % (Auto) Baso % (Auto) Absolute Neuts (auto) Absolute Lymphs (auto) Total Counted Specimen Type ART Sample Site L Radial pH 7.34 L Bicarbonate Actual 27.2 H POC Total CO2 29 Base Excess 2 O2 Saturation 98 O2 % 50 ABG pCO2 50.3 H ABG pO2 115 H Respiration Rate 16 O2 Delivery Device Vent Vent Mode A-C Tidal Volume 500 POC PEEP 5 EPAP IPAP Blood Gas Notified Whom [facility] Blood Gas Notified Time 2204 Sodium 143 Potassium 4.6 Chloride 108 H Carbon Dioxide 30.0 Anion Gap 5 BUN 13 Creatinine 0.89 Estim Creat Clear Calc 44.99 Est GFR (MDRD) Af Amer 78 Est GFR (MDRD) Non-Af 65 BUN/Creatinine Ratio 14.5 Glucose 116 H Calcium 8.8 Phosphorus 3.6 Magnesium 1.8 Total Bilirubin 0.50 AST 15 ALT 18 Alkaline Phosphatase 76 Ammonia 31.0 Troponin I < 0.015 Total Protein 6.4 Albumin 3.2 Globulin 3.2 Albumin/Globulin Ratio 1.0 02/05/19 02/05/19 04:35 04:35 WBC 8.0 RBC 2.59 L Hgb 7.3 L Hct 25.4 L MCV 98.1 MCH 28.2 MCHC 28.7 L RDW 13.8 RDW Differential 47.1 H Plt Count 171 MPV 9.4 Immature Gran % (Auto) Neut % (Auto) Lymph % (Auto) [place] % (Auto) Eos % (Auto) Baso % (Auto) Absolute Neuts (auto) Absolute Lymphs (auto) Total Counted Specimen Type Sample Site pH Bicarbonate Actual POC Total CO2 Base Excess O2 Saturation O2 % ABG pCO2 ABG pO2 Respiration Rate O2 Delivery Device Vent Mode Tidal Volume POC PEEP EPAP IPAP Blood Gas Notified Whom Blood Gas Notified Time Sodium 143 Potassium 3.7 Chloride 108 H Carbon Dioxide 27.0 Anion Gap 8 BUN 13 Creatinine 0.89 Estim Creat Clear Calc 44.99 Est GFR (MDRD) Af Amer 79 Est GFR (MDRD) Non-Af 66 BUN/Creatinine Ratio 14.7 Glucose 104 Calcium 8.6 Phosphorus Magnesium Total Bilirubin AST ALT Alkaline Phosphatase Ammonia Troponin I Total Protein Albumin Globulin Albumin/Globulin Ratio POC Glucose 02/05/19 02/04/19 02/04/19 05:42 23:22 16:02 POC Glucose 104 108 150 H 02/04/19 10:44 POC Glucose 109 Clinical Impression(s) from Imaging Studies Chest X-Ray 02/02/19 20:45 IMPRESSION: Elevated right hemidiaphragm with bibasilar atelectasis and borderline cardiomegaly. There is no acute infiltrate or mass. Electronically Signed: Micah Lam DO at 21:11 EDT Tel [phone], Service support , Chest X-Ray 02/04/19 20:48 IMPRESSION: 1. Endotracheal tube overlying the thoracic inlet, may advance approximately 2 cm to mid trachea as clinically warranted. 2. Low lung volume and interstitial crowding with underlying interstitial edema not excluded. Electronically Signed: Darnell Blanton DO at 21:53 EDT , Service support , KUB X-Ray 02/04/19 20:48 IMPRESSION: NG tube tip overlying the mid stomach in proper position. Electronically Signed: Darnell Blanton DO at 21:54 EDT , Service support , Assessment/Plan Active and Suspected Problems Acute on chronic anemia (Acute) GI bleed (Suspected) RECOMMENDATIONS: 1. Proceed with a trial of extubation this morning. 2. Once extubated, wean supplemental oxygen to maintain saturations at or above 90%. 3. Avoid sedating medications. 4. Perform bedside swallow evaluation and advance diet accordingly. 5. Encourage incentive spirometer use and mobilize patient as tolerated. 6. Remove Mcduffie catheter. 7. Recommend empiric BiPAP utilization with naps and nightly. 8. Recommend outpatient pulmonary follow-up so that a diagnostic polysomnogram can be completed. IMPRESSIONS: 1. Acute hypoxemic and hypercarbic respiratory failure Likely secondary to sedative medication induced alveolar hypoventilation. Attempts at noninvasive positive pressure ventilation were unsuccessful. The patient did require eventual intubation. Nevertheless, her acid-base status has improved with invasive mechanical ventilatory support. Her mentation is also significantly improved as of this morning. The patient is alert and following commands appropriately. Therefore, we will plan to proceed with a trial of extubation. Once extubated, a bedside swallow evaluation can be performed and her diet advanced accordingly. We will plan to wean supplemental oxygen to maintain saturations at or above 90%. Encourage incentive spirometer use and mobilize patient as tolerated. Given the patient's body habitus and concerns for potential underlying sleep disordered breathing, recommend empiric utilization of BiPAP with naps and nightly. 2. Anemia The patient is status post upper and lower endoscopy with management being dictated by hospitalist and general surgery. 3. Suspected obstructive sleep apnea Recommend outpatient pulmonary follow-up so that a diagnostic polysomnogram can be completed. In the interim, recommend utilization of BiPAP therapy with naps and nightly, as ordered. 3. Morbid obesity/hypertension/hypothyroidism/diabetes/hyperlipidemia/GERD Complicates care, management, recovery and prognosis. Continue home medications as indicated. TIME: 40 minutes of critical care time, independent of procedures, was spent addressing the patient's acute combined respiratory failure, symptomatic anemia, suspected obstructive sleep apnea, review of all data and collaboration with the care team. ([id number]) Code Visit [id number]: [id number] Critical care first hour
--- NOTE | 2019-02-05 07:45 | NURSING ---
Patient extubated per order from Dr Myers. Dr Myers present on ICU and extubation performed by RT with this RN at bedside. Patient placed on 5L NC at 91% which was acceptable to Dr Myers. BiPap on standby at bedside if needed. Patient tolerated without complication.
--- NOTE | 2019-02-05 08:01 | PCM.PN.HOSP ---
Patient Problems: Active and Suspected Problems Acute on chronic anemia (Acute) GI bleed (Suspected) Subjective: Patient is a 78-year-old lady who underwent EGD and colonoscopy by Dr. Abarca on 02/04/2019. Her postoperative. Was complicated by significant lethargy ABGs demonstrated acute hypercapnic respiratory failure patient was placed on BiPAP without much improvement. Had to be intubated in view of worsening respiratory failure and transferred to the intensive care unit. Patient was weaned off the vent on the morning of 02/05/2019. Objective: GENERAL: Appears sick HEENT: Atraumatic; EYES; Anicteric, Normal Conjunctiva NECK; supple, normal thyroid, RESPIRATORY: Diminished to auscultation bilaterally, CARDIOVASCULAR: Regular S1 S2, s GI: soft, non-tender, normoactive bowel sounds, : No Renal angle tenderness; EXTREMITIES: No edema, no clubbing, no cyanosis. MUSCULOSKELETAL: No Joint Tenderness; NEURO: Awake; no lateralizing signs. SKIN: No Rash PSYCH; Normal affect Vitals/I&O's: Vital Signs Temp Pulse Resp BP Pulse Ox 100.4 F H 101 H 13 150/65 H 95 02/05/19 07:00 02/05/19 07:00 02/05/19 07:00 02/05/19 07:00 02/05/19 06:40 Oxygen Flow Rate (L/min) 12 Oxygen Delivery Method Mechanical Ventilator Weight: 134.9 kg Body Mass Index (BMI) 48.6 Finger Stick Blood Glucose 104 Intake and Output for Last 24 Hours 02/03/19 02/04/19 02/05/19 23:59 23:59 23:59 Intake Total 2379 / 2379 6335.7 / 6335.7 652 / 652 Output Total 300 / 300 1850 / 1850 300 / 300 Balance 2079 / 2079 4485.7 / 4485.7 352 / 352 Microbiology Past 72 Hours 02/02/19 23:15 Stool Stool Occult Blood (CONSTANTIN) - Final Laboratory Results 02/04/19 10:44: POC Glucose 109 02/04/19 16:02: POC Glucose 150 H 02/04/19 17:57: Specimen Type ART, Sample Site R Brachial, pH 7.12 L*, Bicarbonate Actual 30.1 H, POC Total CO2 33, Base Excess 1, O2 Saturation 93 L, O2 % 50, ABG pCO2 91.9 H*, ABG pO2 93, O2 Delivery Device Vent Mask, Blood Gas Notified Whom KEV GONZALEZ, Blood Gas Notified Time 17402/04/19 19:51: Specimen Type ART, Sample Site R Radial, pH 7.17 L*, Bicarbonate Actual 29.7 H, POC Total CO2 32, Base Excess 1, O2 Saturation 85 L, O2 % 35, ABG pCO2 81.1 H*, ABG pO2 65 L, Respiration Rate 14, O2 Delivery Device Bi / C PAP, EPAP 8, IPAP 16, Blood Gas Notified Whom KEV GONZALEZ, Blood Gas Notified Time 194402/04/19 21:00: WBC 8.8, RBC 2.81 L, Hgb 7.9 L, Hct 28.1 L, MCV 100.0 H, MCH 28.1, MCHC 28.1 L, RDW 14.2, RDW Differential 52.1 H, Plt Count 191, MPV 9.3, Immature Gran % (Auto) 0.300, Neut % (Auto) 81.4 H, Lymph % (Auto) 11.7 L, [place] % (Auto) 6.3, Eos % (Auto) 0.1, Baso % (Auto) 0.2, Absolute Neuts (auto) 7.1, Absolute Lymphs (auto) 1.03, Total Counted Not Reportable 02/04/19 21:00: Ammonia 31.0 02/04/19 22:00: Sodium 143, Potassium 4.6, Chloride 108 H, Carbon Dioxide 30.0, Anion Gap 5, BUN 13, Creatinine 0.89, Estim Creat Clear Calc 44.99, Est GFR (MDRD) Af Amer 78, Est GFR (MDRD) Non-Af 65, BUN/Creatinine Ratio 14.5, Glucose 116 H, Calcium 8.8, Phosphorus 3.6, Magnesium 1.8, Total Bilirubin 0.50, AST 15, ALT 18, Alkaline Phosphatase 76, Troponin I < 0.015, Total Protein 6.4, Albumin 3.2, Globulin 3.2, Albumin/Globulin Ratio 1.0 02/04/19 22:09: Specimen Type ART, Sample Site L Radial, pH 7.34 L, Bicarbonate Actual 27.2 H, POC Total CO2 29, Base Excess 2, O2 Saturation 98, O2 % 50, ABG pCO2 50.3 H, ABG pO2 115 H, Respiration Rate 16, O2 Delivery Device Vent, Vent Mode A-C, Tidal Volume 500, POC PEEP 5, Blood Gas Notified Whom KEV GONZALEZ, Blood Gas Notified Time 220302/04/19 23:22: POC Glucose 108 02/05/19 04:35: WBC 8.0, RBC 2.59 L, Hgb 7.3 L, Hct 25.4 L, MCV 98.1, MCH 28.2, MCHC 28.7 L, RDW 13.8, RDW Differential 47.1 H, Plt Count 171, MPV 9.4 02/05/19 04:35: Sodium 143, Potassium 3.7, Chloride 108 H, Carbon Dioxide 27.0, Anion Gap 8, BUN 13, Creatinine 0.89, Estim Creat Clear Calc 44.99, Est GFR (MDRD) Af Amer 79, Est GFR (MDRD) Non-Af 66, BUN/Creatinine Ratio 14.7, Glucose 104, Calcium 8.6 02/05/19 05:42: POC Glucose 104 Current Medications Acetaminophen (Tylenol) 650 mg PO Q6H PRN PRN PRN Reason: Non-cardiac pain (mod-severe) Al Hydroxide/Mg Hydroxide (Mylanta Ii) 15 - 30 ml PO Q4H PRN PRN PRN Reason: INDIGESTION Albuterol Sulfate (Ventolin Aerosols) 2.5 mg INHALATION Q2H PRN PRN PRN Reason: dyspnea, wheezing Albuterol/Ipratropium (Duoneb) 3 ml INHALATION Q4H.RT [facility] Last Admin: 02/05/19 06:49 Dose: 3 ml Chlorhexidine Gluconate () 15 ml PO BID [facility] Last Admin: 02/04/19 21:45 Dose: 15 ml Chlorhexidine Gluconate () 1 each TOPICAL DAILY [facility] Dextrose (D50w Syringe) 0 gm IV X1 PRN; Protocol PRN Reason: Hypoglycemia Glucagon () 1 mg IM .X1 PRN PRN Reason: Hypoglycemia Hydralazine HCl (Apresoline Iv) 10 mg IV Q4H PRN PRN PRN Reason: SBP > 160 Hydrochlorothiazide (Hctz) 25 mg PO DAILY [facility] Last Admin: 02/04/19 15:32 Dose: Not Given Pantoprazole Sodium 40 mg/ (Sodium Chloride) 110 mls @ 330 mls/hr IV Q12 [facility] Last Admin: 02/04/19 21:45 Dose: 330 mls/hr Propofol (Diprivan) 1,000 mg in 100 mls @ 7.716 mls/hr CONT INF .Q12H [facility] Last Admin: 02/05/19 06:37 Dose: 7.716 mls/hr Sodium Chloride () 250 mls @ 15 mls/hr IV .[id number] PRN PRN Reason: SALINE FLUSH Insulin Human Lispro (Humalog Kwikpen (Bkc)) 0 unit SQ Q6 [facility]; Protocol Last Admin: 02/05/19 06:33 Dose: Not Given Levothyroxine Sodium (Synthroid) 150 mcg PO DAILY@0600 [facility] Last Admin: 02/05/19 06:33 Dose: Not Given Lisinopril (Zestril) 20 mg PO DAILY [facility] Last Admin: 02/04/19 15:32 Dose: Not Given Ondansetron HCl (Zofran) 4 mg IV Q8H PRN PRN PRN Reason: NAUSEA/VOMITING Last Admin: 02/04/19 06:04 Dose: 4 mg Sodium Chloride () 5 - 15 ml IV UD PRN PRN Reason: SALINE FLUSH Last Admin: 02/05/19 04:34 Dose: 10 ml Medical Necessity - Tobacco Use Smoking Status: Never smoker Tobacco Use: Non-smoker Assessment/Plan All Active Problems Acute on chronic anemia (Acute) Patient is a 78-year-old lady with past medical history cigar for diabetes mellitus type 2 hypothyroidism who was sent to the emergency department by the PCP on account of patient complaining of progressive generalized fatigue with low hemoglobin level. On assessment of possible acute on chronic GI bleed was made admitted to regular nursing floor with consultation placed to general surgery for possible endoscopic evaluation. 1. Acute hypoxic and hypercapnic respiratory failure attributed to effect of anesthesia in the setting of suspected obstructive sleep apnea. Patient failed to respond to noninvasive ventilation BiPAP and had to be intubated and transferred to the intensive care unit. Patient was weaned off the vent on the morning of 02/05/2019 2. Symptomatic anemia suspected to be secondary to acute on chronic blood loss possibly from the GI tract. Underwent EGD and colonoscopy on 02/04/[address] Fernández with no identifiable source of bleeding found. Patient has since received 2 doses of Venofer 100 mg 3. Hypertension-blood pressure controlled, home medications continued with dose adjustment as needed next 4. Diabetes mellitus type 2 held patient oral agents did continue with Accu-Cheks before meals and at bedtime with sliding scale coverage 5. Hypothyroidism-patient is on levothyroxine home dose continued 6. Chronic bilateral lower extremity lymphedema did encourage the use of bilateral HENRIETTA hoses 7. Dyslipidemia 8. GERD on PPI 9. Morbid obesity with BMI of 48.7 weight loss advised 10. Suspected sleep apnea patient undergo sleep study as outpatient 11. Acute congestive heart failure suspected to be secondary to heart failure with preserved ejection fraction (diastolic dysfunction) check history obtained after patient's intubation demonstrated evidence of edema and order was given for patient to receive Lasix echo ordered for EF assessment 12. DVT prophylaxis bilateral SCDs Code Visit Inpatient E&M: 22013 [facility] Hosp L3
--- NOTE | 2019-02-05 08:06 | PN_ITS ---
Patient Problems: Active and Suspected Problems Acute on chronic anemia (Acute) GI bleed (Suspected) Subjective: Patient is a 78-year-old lady who underwent EGD and colonoscopy by Dr. Abarca on 02/04/2019. Her postoperative. Was complicated by significant lethargy ABGs demonstrated acute hypercapnic respiratory failure patient was placed on BiPAP without much improvement. Had to be intubated in view of worsening respiratory failure and transferred to the intensive care unit. Patient was weaned off the vent on the morning of 02/05/2019. Objective: GENERAL: Appears sick HEENT: Atraumatic; EYES; Anicteric, Normal Conjunctiva NECK; supple, normal thyroid, RESPIRATORY: Diminished to auscultation bilaterally, CARDIOVASCULAR: Regular S1 S2, s GI: soft, non-tender, normoactive bowel sounds, : No Renal angle tenderness; EXTREMITIES: No edema, no clubbing, no cyanosis. MUSCULOSKELETAL: No Joint Tenderness; NEURO: Awake; no lateralizing signs. SKIN: No Rash PSYCH; Normal affect Vitals/I&O's: Vital Signs Temp Pulse Resp BP Pulse Ox 100.4 F H 101 H 13 150/65 H 95 02/05/19 07:00 02/05/19 07:00 02/05/19 07:00 02/05/19 07:00 02/05/19 06:40 Oxygen Flow Rate (L/min) 12 Oxygen Delivery Method Mechanical Ventilator Weight: 134.9 kg Body Mass Index (BMI) 48.6 Finger Stick Blood Glucose 104 Intake and Output for Last 24 Hours 02/03/19 02/04/19 02/05/19 23:59 23:59 23:59 Intake Total 2379 / 2379 6335.7 / 6335.7 652 / 652 Output Total 300 / 300 1850 / 1850 300 / 300 Balance 2079 / 2079 4485.7 / 4485.7 352 / 352 Microbiology Past 72 Hours 02/02/19 23:15 Stool Stool Occult Blood (CONSTANTIN) - Final Laboratory Results 02/04/19 10:44: POC Glucose 109 02/04/19 16:02: POC Glucose 150 H 02/04/19 17:57: Specimen Type ART, Sample Site R Brachial, pH 7.12 L*, Bicarbonate Actual 30.1 H, POC Total CO2 33, Base Excess 1, O2 Saturation 93 L, O2 % 50, ABG pCO2 91.9 H*, ABG pO2 93, O2 Delivery Device Vent Mask, Blood Gas Notified Whom KEV GONZALEZ, Blood Gas Notified Time 17402/04/19 19:51: Specimen Type ART, Sample Site R Radial, pH 7.17 L*, Bicarbonate Actual 29.7 H, POC Total CO2 32, Base Excess 1, O2 Saturation 85 L, O2 % 35, ABG pCO2 81.1 H*, ABG pO2 65 L, Respiration Rate 14, O2 Delivery Device Bi / C PAP, EPAP 8, IPAP 16, Blood Gas Notified Whom KEV GONZALEZ, Blood Gas Notified Time 194402/04/19 21:00: WBC 8.8, RBC 2.81 L, Hgb 7.9 L, Hct 28.1 L, MCV 100.0 H, MCH 28.1, MCHC 28.1 L, RDW 14.2, RDW Differential 52.1 H, Plt Count 191, MPV 9.3, Immature Gran % (Auto) 0.300, Neut % (Auto) 81.4 H, Lymph % (Auto) 11.7 L, [place] % (Auto) 6.3, Eos % (Auto) 0.1, Baso % (Auto) 0.2, Absolute Neuts (auto) 7.1, Absolute Lymphs (auto) 1.03, Total Counted Not Reportable 02/04/19 21:00: Ammonia 31.0 02/04/19 22:00: Sodium 143, Potassium 4.6, Chloride 108 H, Carbon Dioxide 30.0, Anion Gap 5, BUN 13, Creatinine 0.89, Estim Creat Clear Calc 44.99, Est GFR (MDRD) Af Amer 78, Est GFR (MDRD) Non-Af 65, BUN/Creatinine Ratio 14.5, Glucose 116 H, Calcium 8.8, Phosphorus 3.6, Magnesium 1.8, Total Bilirubin 0.50, AST 15, ALT 18, Alkaline Phosphatase 76, Troponin I < 0.015, Total Protein 6.4, Albumin 3.2, Globulin 3.2, Albumin/Globulin Ratio 1.0 02/04/19 22:09: Specimen Type ART, Sample Site L Radial, pH 7.34 L, Bicarbonate Actual 27.2 H, POC Total CO2 29, Base Excess 2, O2 Saturation 98, O2 % 50, ABG pCO2 50.3 H, ABG pO2 115 H, Respiration Rate 16, O2 Delivery Device Vent, Vent Mode A-C, Tidal Volume 500, POC PEEP 5, Blood Gas Notified Whom KEV GONZALEZ, Blood Gas Notified Time 220302/04/19 23:22: POC Glucose 108 02/05/19 04:35: WBC 8.0, RBC 2.59 L, Hgb 7.3 L, Hct 25.4 L, MCV 98.1, MCH 28.2, MCHC 28.7 L, RDW 13.8, RDW Differential 47.1 H, Plt Count 171, MPV 9.4 02/05/19 04:35: Sodium 143, Potassium 3.7, Chloride 108 H, Carbon Dioxide 27.0, Anion Gap 8, BUN 13, Creatinine 0.89, Estim Creat Clear Calc 44.99, Est GFR (MDRD) Af Amer 79, Est GFR (MDRD) Non-Af 66, BUN/Creatinine Ratio 14.7, Glucose 104, Calcium 8.6 02/05/19 05:42: POC Glucose 104 Current Medications Acetaminophen (Tylenol) 650 mg PO Q6H PRN PRN PRN Reason: Non-cardiac pain (mod-severe) Al Hydroxide/Mg Hydroxide (Mylanta Ii) 15 - 30 ml PO Q4H PRN PRN PRN Reason: INDIGESTION Albuterol Sulfate (Ventolin Aerosols) 2.5 mg INHALATION Q2H PRN PRN PRN Reason: dyspnea, wheezing Albuterol/Ipratropium (Duoneb) 3 ml INHALATION Q4H.RT [facility] Last Admin: 02/05/19 06:49 Dose: 3 ml Chlorhexidine Gluconate () 15 ml PO BID [facility] Last Admin: 02/04/19 21:45 Dose: 15 ml Chlorhexidine Gluconate () 1 each TOPICAL DAILY [facility] Dextrose (D50w Syringe) 0 gm IV X1 PRN; Protocol PRN Reason: Hypoglycemia Glucagon () 1 mg IM .X1 PRN PRN Reason: Hypoglycemia Hydralazine HCl (Apresoline Iv) 10 mg IV Q4H PRN PRN PRN Reason: SBP > 160 Hydrochlorothiazide (Hctz) 25 mg PO DAILY [facility] Last Admin: 02/04/19 15:32 Dose: Not Given Pantoprazole Sodium 40 mg/ (Sodium Chloride) 110 mls @ 330 mls/hr IV Q12 [facility] Last Admin: 02/04/19 21:45 Dose: 330 mls/hr Propofol (Diprivan) 1,000 mg in 100 mls @ 7.716 mls/hr CONT INF .Q12H [facility] Last Admin: 02/05/19 06:37 Dose: 7.716 mls/hr Sodium Chloride () 250 mls @ 15 mls/hr IV .[id number] PRN PRN Reason: SALINE FLUSH Insulin Human Lispro (Humalog Kwikpen (Bkc)) 0 unit SQ Q6 [facility]; Protocol Last Admin: 02/05/19 06:33 Dose: Not Given Levothyroxine Sodium (Synthroid) 150 mcg PO DAILY@0600 [facility] Last Admin: 02/05/19 06:33 Dose: Not Given Lisinopril (Zestril) 20 mg PO DAILY [facility] Last Admin: 02/04/19 15:32 Dose: Not Given Ondansetron HCl (Zofran) 4 mg IV Q8H PRN PRN PRN Reason: NAUSEA/VOMITING Last Admin: 02/04/19 06:04 Dose: 4 mg Sodium Chloride () 5 - 15 ml IV UD PRN PRN Reason: SALINE FLUSH Last Admin: 02/05/19 04:34 Dose: 10 ml Medical Necessity - Tobacco Use Smoking Status: Never smoker Tobacco Use: Non-smoker Assessment/Plan All Active Problems Acute on chronic anemia (Acute) Patient is a 78-year-old lady with past medical history cigar for diabetes mellitus type 2 hypothyroidism who was sent to the emergency department by the PCP on account of patient complaining of progressive generalized fatigue with low hemoglobin level. On assessment of possible acute on chronic GI bleed was made admitted to regular nursing floor with consultation placed to general surg bala for possible endoscopic evaluation. 1. Acute hypoxic and hypercapnic respiratory failure attributed to effect of anesthesia in the setting of suspected obstructive sleep apnea. Patient failed to respond to noninvasive ventilation BiPAP and had to be intubated and transferred to the intensive care unit. Patient was weaned off the vent on the morning of 02/05/2019 2. Symptomatic anemia suspected to be secondary to acute on chronic blood loss possibly from the GI tract. Underwent EGD and colonoscopy on 02/04/[address] Fernández with no identifiable source of bleeding found. Patient has since received 2 doses of Venofer 100 mg 3. Hypertension-blood pressure controlled, home medications continued with dose adjustment as needed next 4. Diabetes mellitus type 2 held patient oral agents did continue with Accu- Cheks before meals and at bedtime with sliding scale coverage 5. Hypothyroidism-patient is on levothyroxine home dose continued 6. Chronic bilateral lower extremity lymphedema did encourage the use of bilateral HENRIETTA hoses 7. Dyslipidemia 8. GERD on PPI 9. Morbid obesity with BMI of 48.7 weight loss advised 10. Suspected sleep apnea patient undergo sleep study as outpatient 11. Acute congestive heart failure suspected to be secondary to heart failure with preserved ejection fraction (diastolic dysfunction) check history obtained after patient's intubation demonstrated evidence of edema and order was given for patient to receive Lasix echo ordered for EF assessment 12. DVT prophylaxis bilateral SCDs Code Visit Inpatient E&M: 65509 [facility] Hosp L3
--- NOTE | 2019-02-05 08:07 | ECHOCS_ITS ---
Reason For Study: CHF Procedure This was a 2D Doppler, Color Flow transthoracic echocardiogram. The study was technically difficult. Contrast injection was performed. Exam performed portable in ICU/CCU. Left Ventricle Normal size and thickness. The estimated ejection fraction is 65 %. Unable to assess diastolic dysfunction. No regional wall motion abnormalities noted. Right Ventricle Normal size and thickness. Normal systolic function. Atria Normal left atrium. Normal right atrium. Normal atrial septum. Mitral Valve Severe focal mitral valve thickening. Severe mitral annular calcification extending into the posterior leaflet. Rheumatic appearing mitral valve. Moderate mitral valve stenosis. Peak transmitral valve gradient 15 mmHg. Mean transmitral valve gradient 5 mmHg. Mitral valve area. Tricuspid Valve Normal tricuspid valve. Unable to estimate RV systolic pressure due to inadequate jet, pulmonary artery pressure probably normal. Aortic Valve Trisinus/trileaflet aortic valve. Moderate diffuse aortic valve thickening. Moderate restriction of the aortic valve. Moderate aortic stenosis. Peak aortic valve gradient 45 mmHg. Mean aortic valve gradient 22 mmHg. Calculated aortic valve area (continuity equation) is 1.5 cm2. Pulmonic Valve The pulmonic valve is not well visualized. Great Vessels Normal aortic root. Normal arch. Normal inferior vena cava. Inferior vena cava collapse with respiration. Pericardium/Pleural No pericardial effusion. Medication Diluted definity 3.5ml given slow IV push to enhance endocardial definition. MMode/2D Measurements & Calculations LVIDd: 4.6 cm IVSd: 1.2 cm LVOT diam: 2.0 cm LVIDs: 2.7 cm LVPWd: 1.1 cm FS: 40.8 % LVOT area: 3.2 cm2 Ao root diam: 3.7 cm LAV(MOD-sp2): 93.0 ml LA dimension: 5.0 cm Time Measurements MV dec time: 0.25 sec Doppler Measurements & Calculations MV E max pascual: 149.2 cm/sec Lat Peak E' Pascual: 9.2 cm/sec Med Peak E' Pascual: 5.2 cm/sec MV A max pascual: 125.1 cm/sec E/E' lat: 16.3 E/E' med: 28.5 MV E/A: 1.2 MV V2 max: 193.6 cm/sec MV P1/2t max pascual: 194.5 cm/sec Ao V2 max: 320.7 cm/sec MV max P.0 mmHg MV P1/2t: 71.2 msec Ao max P.2 mmHg MV V2 mean: 102.2 cm/sec Ao V2 mean: 203.7 cm/sec MV mean P.9 mmHg MV dec slope: 799.9 cm/sec2 Ao mean P.2 mmHg MV V2 VTI: 47.9 cm MVA(P1/2t): 3.1 cm2 Ao V2 VTI: 61.8 cm MVA(VTI): 2.0 cm2 MORIAH(I,D): 1.6 cm2 MORIAH(V,D): 1.5 cm2 LV V1 max: 147.5 cm/sec SV(LVOT): 96.7 ml PA V2 max: 129.0 cm/sec LV V1 max P.7 mmHg LV V1 mean P.2 mmHg LV V1 mean: 94.0 cm/sec LV V1 VTI: 30.4 cm Interpretation Summary The estimated ejection fraction is 65 %. Unable to assess diastolic dysfunction. Moderate mitral valve stenosis. Mitral valve area. Unable to estimate RV systolic pressure due to inadequate jet, pulmonary artery pressure probably normal. Moderate restriction of the aortic valve. Moderate aortic stenosis. Peak aortic valve gradient 45 mmHg. Mean aortic valve gradient 22 mmHg. Calculated aortic valve area (continuity equation) is 1.5 cm2. The study was technically limited. There is no comparison study available. Contrast injection was performed. Ordering Physician: Nico Pratt Performed By: Jermain Diamond RCS
[2019-02-05] MEDS: Furosemide 100 MG/10 ML Vial 60 MG IV (08:36)
[2019-02-05] MEDS: Lisinopril 20 MG Tablet PO (09:49)
[2019-02-05] MEDS: hydroCHLOROthiazide 25 MG Tablet PO (09:49)
[2019-02-05] MEDS: Levothyroxine 150 MCG Tablet PO (09:49)
[2019-02-05] MEDS: Acetaminophen 325 MG Tablet 650 MG PO (09:52)
--- NOTE | 2019-02-05 10:05 | CASEMGMT ---
RN CM Note: participated in ICU rounds. Pt extubated today, on 5L NC. Awaiting PT/OT to see patient today. Plan is home on dc. If continues to need oxygen, may benefit from Home oxygen testing. -Spoke with patient re: [facility]. Pt prefers [facility]. Call to [facility]: on weekends calls go to [place] who provides their oxygen for home. SEE GREEN SHEET ON CHART. Weekend call # and fax: PH: [phone] FX: [phone] Carine TARANGON RN ACM
[2019-02-05 10:41] LABS: Bedside Glucose 136 mg/dL (70-110)
--- NOTE | 2019-02-05 14:47 | CHAPLAIN ---
Type of Pastoral Visit _x__ Initial Visit ___ Follow-up Visit ___ On-call Visit ___ General Patient Visit ___ Spiritual Assessment ___ Family Conference ___ Bereavement ___ Rapid Response ___ Code Blue ___ Other (describe below) Pastoral Care Referral From _x__ Patient ___ Family ___ Nurse ___ Physician ___ Junior Loan Processor ___ Event Promoter ___ Other (describe below) Sacrament/Intervention _x__ Active listening ___ Anointing ___ Mormon ___ Bereavement ___ Communion ___ Lety exploration ___ ___ Life review ___ Prayer ___ Reconciliation ___ Sacrament of Sick ___ Supportive presence ___ Wedding ___ Other (describe below) Pastoral Comments
[2019-02-05 16:21] LABS: Bedside Glucose 152 mg/dL (70-110)
[2019-02-05] MEDS: Insulin Lispro 100 UNIT/ML INSULN.PEN SC (21:56)
[2019-02-05 22:05] LABS: Bedside Glucose 179 mg/dL (70-110)
[2019-02-06] VITALS (14 sets, daily range): BP systolic 105–143; BP diastolic 44–64; PULSE 80–92; RESP 16–20; TEMP 36.7–37.2; O2SAT 82–99
[2019-02-06] MEDS: Albuterol 2.5 MG/3 ML VIAL.NEB. INHALATION (03:24)
[2019-02-06] MEDS: Levothyroxine 150 MCG Tablet PO (06:44)
[2019-02-06 06:51] LABS: Bedside Glucose 131 mg/dL (70-110)
--- NOTE | 2019-02-06 07:03 | PCM.PN.PUL ---
Patient Problems: Active and Suspected Problems Acute on chronic anemia (Acute) GI bleed (Suspected) Subjective: The patient was seen and examined at the bedside this morning. Events from the last 24 hours have been reviewed. The patient is currently afebrile, hemodynamically stable and maintaining appropriate oxygen saturations on 3 L/min via nasal cannula. The patient has remained clinically stable following transfer out of the intensive care unit yesterday. The patient is currently sitting in her bedside recliner. She reports no significant shortness of breath. She only utilized her BiPAP overnight for approximately 2 hours, noting that she did not like the mask. The patient did receive blood transfusion yesterday. Her morning H&H is currently pending. Objective: The patient's most recent lab work, culture data and imaging studies have all been personally reviewed. On February 04, the patient underwent both upper and lower endoscopy procedures. Her lower endoscopy revealed nonbleeding external and internal hemorrhoids. Upper endoscopy revealed a normal esophagus and stomach. Surface echocardiogram dated February 05 revealed normal LV size and thickness with an ejection fraction of 65%. There was severe focal mitral valve thickening. There was also note of moderate aortic stenosis. - Physical Exam General: Alert, Cooperative, No apparent distress, - - Morbidly obese. Sitting in bedside recliner. HEENT: Atraumatic, PERRLA, Normocephalic Oral: No Gingival or Mucosal Lesions/ Ulcerations Neck: Supple, No Nodes, Trachea Midline, - - Large neck circumference with redundant soft tissue. Lungs: No rhonchi, No wheeze, No rales, Diminished Cardiovascular: Regular rate, Regular Rhythm, Normal S1, Murmur Abdomen: Bowel Sounds Present, Soft, Non Tender Extremities: No clubbing, No cyanosis, Edema Skin: - - No significant change from previous. Musculoskeletal: No Tenderness to Palpation of Joints or Extremities, No Muscle Wasting Lymphatic: No Cervical, Supraclavicular, or Inguinal Adenopathy Neurological: Neuro grossly intact Psych/Mental Status: Normal Affect, Appropriate Vital Signs Temp Pulse Resp BP Pulse Ox 98.4 F 86 20 H 123/55 H 97 02/06/19 02:35 02/06/19 03:24 02/06/19 03:24 02/06/19 02:35 02/06/19 03:26 Oxygen Flow Rate (L/min) 3 Oxygen Delivery Method Nasal Cannula Weight: 297 lb 6.457 oz Body Mass Index (BMI) 48.6 Finger Stick Blood Glucose 104 Intake and Output for Last 24 Hours 02/04/19 02/05/19 02/06/19 23:59 23:59 23:59 Intake Total 6335.7 / 6335.7 2295 / 2295 190 / 190 Output Total 1850 / 1850 3600 / 3600 Balance 4485.7 / 4485.7 -1305 / -1305 190 / 190 Laboratory Tests Past 24 Hrs 02/02/19 22:03 Crossmatch See Detail POC Glucose 02/06/19 02/05/19 02/05/19 06:43 21:50 16:16 POC Glucose 131 H 179 H 152 H 02/05/19 10:35 POC Glucose 136 H Labs (Last 48 Hours) 02/02/19 02/04/19 02/04/19 22:03 10:44 16:02 WBC RBC Hgb Hct MCV MCH MCHC RDW RDW Differential Plt Count MPV Immature Gran % (Auto) Neut % (Auto) Lymph % (Auto) [place] % (Auto) Eos % (Auto) Baso % (Auto) Absolute Neuts (auto) Absolute Lymphs (auto) Total Counted Specimen Type Sample Site pH Bicarbonate Actual POC Total CO2 Base Excess O2 Saturation O2 % ABG pCO2 ABG pO2 Respiration Rate O2 Delivery Device Vent Mode Tidal Volume POC PEEP EPAP IPAP Blood Gas Notified Whom Blood Gas Notified Time Sodium Potassium Chloride Carbon Dioxide Anion Gap BUN Creatinine Estim Creat Clear Calc Est GFR (MDRD) Af Amer Est GFR (MDRD) Non-Af BUN/Creatinine Ratio Glucose Calcium Phosphorus Magnesium Total Bilirubin AST ALT Alkaline Phosphatase Ammonia Troponin I Total Protein Albumin Globulin Albumin/Globulin Ratio POC Glucose 109 150 H Crossmatch See Detail 02/04/19 02/04/19 02/04/19 17:57 19:51 21:00 WBC 8.8 RBC 2.81 L Hgb 7.9 L Hct 28.1 L MCV 100.0 H MCH 28.1 MCHC 28.1 L RDW 14.2 RDW Differential 52.1 H Plt Count 191 MPV 9.3 Immature Gran % (Auto) 0.300 Neut % (Auto) 81.4 H Lymph % (Auto) 11.7 L [place] % (Auto) 6.3 Eos % (Auto) 0.1 Baso % (Auto) 0.2 Absolute Neuts (auto) 7.1 Absolute Lymphs (auto) 1.03 Total Counted Not Reportable Specimen Type ART ART Sample Site R Brachial R Radial pH 7.12 L* 7.17 L* Bicarbonate Actual 30.1 H 29.7 H POC Total CO2 33 32 Base Excess 1 1 O2 Saturation 93 L 85 L O2 % 50 35 ABG pCO2 91.9 H* 81.1 H* ABG pO2 93 65 L Respiration Rate 14 O2 Delivery Device Vent Mask Bi / C PAP Vent Mode Tidal Volume POC PEEP EPAP 8 IPAP 16 Blood Gas Notified Whom [facility] Blood Gas Notified Time 1744 1944 Sodium Potassium Chloride Carbon Dioxide Anion Gap BUN Creatinine Estim Creat Clear Calc Est GFR (MDRD) Af Amer Est GFR (MDRD) Non-Af BUN/Creatinine Ratio Glucose Calcium Phosphorus Magnesium Total Bilirubin AST ALT Alkaline Phosphatase Ammonia Troponin I Total Protein Albumin Globulin Albumin/Globulin Ratio POC Glucose Crossmatch 02/04/19 02/04/19 02/04/19 21:00 22:00 22:09 WBC RBC Hgb Hct MCV MCH MCHC RDW RDW Differential Plt Count MPV Immature Gran % (Auto) Neut % (Auto) Lymph % (Auto) [place] % (Auto) Eos % (Auto) Baso % (Auto) Absolute Neuts (auto) Absolute Lymphs (auto) Total Counted Specimen Type ART Sample Site L Radial pH 7.34 L Bicarbonate Actual 27.2 H POC Total CO2 29 Base Excess 2 O2 Saturation 98 O2 % 50 ABG pCO2 50.3 H ABG pO2 115 H Respiration Rate 16 O2 Delivery Device Vent Vent Mode A-C Tidal Volume 500 POC PEEP 5 EPAP IPAP Blood Gas Notified Whom [facility] Blood Gas Notified Time 2203 Sodium 143 Potassium 4.6 Chloride 108 H Carbon Dioxide 30.0 Anion Gap 5 BUN 13 Creatinine 0.89 Estim Creat Clear Calc 44.99 Est GFR (MDRD) Af Amer 78 Est GFR (MDRD) Non-Af 65 BUN/Creatinine Ratio 14.5 Glucose 116 H Calcium 8.8 Phosphorus 3.6 Magnesium 1.8 Total Bilirubin 0.50 AST 15 ALT 18 Alkaline Phosphatase 76 Ammonia 31.0 Troponin I < 0.015 Total Protein 6.4 Albumin 3.2 Globulin 3.2 Albumin/Globulin Ratio 1.0 POC Glucose Crossmatch 02/04/19 02/05/19 02/05/19 23:22 04:35 04:35 WBC 8.0 RBC 2.59 L Hgb 7.3 L Hct 25.4 L MCV 98.1 MCH 28.2 MCHC 28.7 L RDW 13.8 RDW Differential 47.1 H Plt Count 171 MPV 9.4 Immature Gran % (Auto) Neut % (Auto) Lymph % (Auto) [place] % (Auto) Eos % (Auto) Baso % (Auto) Absolute Neuts (auto) Absolute Lymphs (auto) Total Counted Specimen Type Sample Site pH Bicarbonate Actual POC Total CO2 Base Excess O2 Saturation O2 % ABG pCO2 ABG pO2 Respiration Rate O2 Delivery Device Vent Mode Tidal Volume POC PEEP EPAP IPAP Blood Gas Notified Whom Blood Gas Notified Time Sodium 143 Potassium 3.7 Chloride 108 H Carbon Dioxide 27.0 Anion Gap 8 BUN 13 Creatinine 0.89 Estim Creat Clear Calc 44.99 Est GFR (MDRD) Af Amer 79 Est GFR (MDRD) Non-Af 66 BUN/Creatinine Ratio 14.7 Glucose 104 Calcium 8.6 Phosphorus Magnesium Total Bilirubin AST ALT Alkaline Phosphatase Ammonia Troponin I Total Protein Albumin Globulin Albumin/Globulin Ratio POC Glucose 108 Crossmatch 02/05/19 02/05/19 02/05/19 05:42 10:35 16:16 WBC RBC Hgb Hct MCV MCH MCHC RDW RDW Differential Plt Count MPV Immature Gran % (Auto) Neut % (Auto) Lymph % (Auto) [place] % (Auto) Eos % (Auto) Baso % (Auto) Absolute Neuts (auto) Absolute Lymphs (auto) Total Counted Specimen Type Sample Site pH Bicarbonate Actual POC Total CO2 Base Excess O2 Saturation O2 % ABG pCO2 ABG pO2 Respiration Rate O2 Delivery Device Vent Mode Tidal Volume POC PEEP EPAP IPAP Blood Gas Notified Whom Blood Gas Notified Time Sodium Potassium Chloride Carbon Dioxide Anion Gap BUN Creatinine Estim Creat Clear Calc Est GFR (MDRD) Af Amer Est GFR (MDRD) Non-Af BUN/Creatinine Ratio Glucose Calcium Phosphorus Magnesium Total Bilirubin AST ALT Alkaline Phosphatase Ammonia Troponin I Total Protein Albumin Globulin Albumin/Globulin Ratio POC Glucose 104 136 H 152 H Crossmatch 02/05/19 02/06/19 21:50 06:43 WBC RBC Hgb Hct MCV MCH MCHC RDW RDW Differential Plt Count MPV Immature Gran % (Auto) Neut % (Auto) Lymph % (Auto) [place] % (Auto) Eos % (Auto) Baso % (Auto) Absolute Neuts (auto) Absolute Lymphs (auto) Total Counted Specimen Type Sample Site pH Bicarbonate Actual POC Total CO2 Base Excess O2 Saturation O2 % ABG pCO2 ABG pO2 Respiration Rate O2 Delivery Device Vent Mode Tidal Volume POC PEEP EPAP IPAP Blood Gas Notified Whom Blood Gas Notified Time Sodium Potassium Chloride Carbon Dioxide Anion Gap BUN Creatinine Estim Creat Clear Calc Est GFR (MDRD) Af Amer Est GFR (MDRD) Non-Af BUN/Creatinine Ratio Glucose Calcium Phosphorus Magnesium Total Bilirubin AST ALT Alkaline Phosphatase Ammonia Troponin I Total Protein Albumin Globulin Albumin/Globulin Ratio POC Glucose 179 H 131 H Crossmatch Clinical Impression(s) from Imaging Studies Chest X-Ray 02/02/19 20:45 IMPRESSION: Elevated right hemidiaphragm with bibasilar atelectasis and borderline cardiomegaly. There is no acute infiltrate or mass. Electronically Signed: Micah Lam DO at 21:11 EDT Tel [phone], Service support , Chest X-Ray 02/04/19 20:48 IMPRESSION: 1. Endotracheal tube overlying the thoracic inlet, may advance approximately 2 cm to mid trachea as clinically warranted. 2. Low lung volume and interstitial crowding with underlying interstitial edema not excluded. Electronically Signed: Darnell Blanton DO at 21:53 EDT , Service support , KUB X-Ray 02/04/19 20:48 IMPRESSION: NG tube tip overlying the mid stomach in proper position. Electronically Signed: Darnell Blanton DO at 21:54 EDT , Service support , Medical Necessity - Tobacco Use Smoking Status: Never smoker Tobacco Use: Non-smoker Assessment/Plan All Active Problems Acute on chronic anemia (Acute) RECOMMENDATIONS: 1. Continue to wean supplemental oxygen to maintain saturations at or above 90%. 2. Encourage incentive spirometer use and mobilize patient as tolerated. 3. Monitor blood counts daily. Transfuse if hemoglobin is less than 7 g/dL. 4. Potassium repletion. 5. Continue PPI therapy. 6. Recommend continued empiric utilization of BiPAP with naps and nightly. IMPRESSIONS: 1. Acute hypoxemic and hypercarbic respiratory failure Improved. Likely secondary to sedative medication induced alveolar hypoventilation. Attempts at noninvasive positive pressure ventilation were unsuccessful. The patient did require eventual intubation. However, she was able to be successfully extubated from invasive mechanical ventilatory support within 24 hours. She is currently maintaining appropriate oxygen saturations on minimal supplemental O2. Continue to wean as tolerated. Encourage incentive spirometer use and mobilize patient as tolerated. Recommend continued utilization of BiPAP with naps and nightly, over concerns for underlying sleep disordered breathing. 2. Anemia The patient is status post upper and lower endoscopy with management being dictated by hospitalist and general surgery. Continue to monitor H&H daily, with plans to transfuse if hemoglobin is less than 7 g/dL. Continue PPI therapy as ordered. 3. Suspected obstructive sleep apnea Recommend outpatient pulmonary follow-up so that a diagnostic polysomnogram can be completed. In the interim, recommend utilization of BiPAP therapy with naps and nightly, as ordered. 3. Morbid obesity/hypertension/hypothyroidism/diabetes/hyperlipidemia/GERD Complicates care, management, recovery and prognosis. Continue home medications as indicated. This note was generated with [employer] dictation software. It may contain incorrect words, spelling, and punctuation that were not noted in checking the note before signing. Code Visit Inpatient E&M: 95030 [facility] L3
--- NOTE | 2019-02-06 07:06 | PN_ITS ---
Patient Problems: Active and Suspected Problems Acute on chronic anemia (Acute) GI bleed (Suspected) Subjective: The patient was seen and examined at the bedside this morning. Events from the last 24 hours have been reviewed. The patient is currently afebrile, hemodynamically stable and maintaining appropriate oxygen saturations on 3 L/min via nasal cannula. The patient has remained clinically stable following transfer out of the intensive care unit yesterday. The patient is currently sitting in her bedside recliner. She reports no significant shortness of breath. She only utilized her BiPAP overnight for approximately 2 hours, noting that she did not like the mask. The patient did receive blood transfusion yesterday. Her morning H&H is currently pending. Objective: The patient's most recent lab work, culture data and imaging studies have all been personally reviewed. On February 04, the patient underwent both upper and lower endoscopy procedures. Her lower endoscopy revealed nonbleeding external and internal hemorrhoids. Upper endoscopy revealed a normal esophagus and stomach. Surface echocardiogram dated February 05 revealed normal LV size and thickness with an ejection fraction of 65%. There was severe focal mitral valve thickening. There was also note of moderate aortic stenosis. - Physical Exam General: Alert, Cooperative, No apparent distress, - - Morbidly obese. Sitting in bedside recliner. HEENT: Atraumatic, PERRLA, Normocephalic Oral: No Gingival or Mucosal Lesions/ Ulcerations Neck: Supple, No Nodes, Trachea Midline, - - Large neck circumference with redundant soft tissue. Lungs: No rhonchi, No wheeze, No rales, Diminished Cardiovascular: Regular rate, Regular Rhythm, Normal S1, Murmur Abdomen: Bowel Sounds Present, Soft, Non Tender Extremities: No clubbing, No cyanosis, Edema Skin: - - No significant change from previous. Musculoskeletal: No Tenderness to Palpation of Joints or Extremities, No Muscle Wasting Lymphatic: No Cervical, Supraclavicular, or Inguinal Adenopathy Neurological: Neuro grossly intact Psych/Mental Status: Normal Affect, Appropriate Vital Signs Temp Pulse Resp BP Pulse Ox 98.4 F 86 20 H 123/55 H 97 02/06/19 02:35 02/06/19 03:24 02/06/19 03:24 02/06/19 02:35 02/06/19 03:26 Oxygen Flow Rate (L/min) 3 Oxygen Delivery Method Nasal Cannula Weight: 297 lb 6.457 oz Body Mass Index (BMI) 48.6 Finger Stick Blood Glucose 104 Intake and Output for Last 24 Hours 02/04/19 02/05/19 02/06/19 23:59 23:59 23:59 Intake Total 6335.7 / 6335.7 2295 / 2295 190 / 190 Output Total 1850 / 1850 3600 / 3600 Balance 4485.7 / 4485.7 -1305 / -1305 190 / 190 Laboratory Tests Past 24 Hrs 02/02/19 22:03 Crossmatch See Detail POC Glucose 02/06/19 02/05/19 02/05/19 06:43 21:50 16:16 POC Glucose 131 H 179 H 152 H 02/05/19 10:35 POC Glucose 136 H Labs (Last 48 Hours) 02/02/19 02/04/19 02/04/19 22:03 10:44 16:02 WBC RBC Hgb Hct MCV MCH MCHC RDW RDW Differential Plt Count MPV Immature Gran % (Auto) Neut % (Auto) Lymph % (Auto) [place] % (Auto) Eos % (Auto) Baso % (Auto) Absolute Neuts (auto) Absolute Lymphs (auto) Total Counted Specimen Type Sample Site pH Bicarbonate Actual POC Total CO2 Base Excess O2 Saturation O2 % ABG pCO2 ABG pO2 Respiration Rate O2 Delivery Device Vent Mode Tidal Volume POC PEEP EPAP IPAP Blood Gas Notified Whom Blood Gas Notified Time Sodium Potassium Chloride Carbon Dioxide Anion Gap BUN Creatinine Estim Creat Clear Calc Est GFR (MDRD) Af Amer Est GFR (MDRD) Non-Af BUN/Creatinine Ratio Glucose Calcium Phosphorus Magnesium Total Bilirubin AST ALT Alkaline Phosphatase Ammonia Troponin I Total Protein Albumin Globulin Albumin/Globulin Ratio POC Glucose 109 150 H Crossmatch See Detail 02/04/19 02/04/19 02/04/19 17:57 19:51 21:00 WBC 8.8 RBC 2.81 L Hgb 7.9 L Hct 28.1 L MCV 100.0 H MCH 28.1 MCHC 28.1 L RDW 14.2 RDW Differential 52.1 H Plt Count 191 MPV 9.3 Immature Gran % (Auto) 0.300 Neut % (Auto) 81.4 H Lymph % (Auto) 11.7 L [place] % (Auto) 6.3 Eos % (Auto) 0.1 Baso % (Auto) 0.2 Absolute Neuts (auto) 7.1 Absolute Lymphs (auto) 1.03 Total Counted Not Reportable Specimen Type ART ART Sample Site R Brachial R Radial pH 7.12 L* 7.17 L* Bicarbonate Actual 30.1 H 29.7 H POC Total CO2 33 32 Base Excess 1 1 O2 Saturation 93 L 85 L O2 % 50 35 ABG pCO2 91.9 H* 81.1 H* ABG pO2 93 65 L Respiration Rate 14 O2 Delivery Device Vent Mask Bi / C PAP Vent Mode Tidal Volume POC PEEP EPAP 8 IPAP 16 Blood Gas Notified Whom [facility] Blood Gas Notified Time 1744 1944 Sodium Potassium Chloride Carbon Dioxide Anion Gap BUN Creatinine Estim Creat Clear Calc Est GFR (MDRD) Af Amer Est GFR (MDRD) Non-Af BUN/Creatinine Ratio Glucose Calcium Phosphorus Magnesium Total Bilirubin AST ALT Alkaline Phosphatase Ammonia Troponin I Total Protein Albumin Globulin Albumin/Globulin Ratio POC Glucose Crossmatch 02/04/19 02/04/19 02/04/19 21:00 22:00 22:09 WBC RBC Hgb Hct MCV MCH MCHC RDW RDW Differential Plt Count MPV Immature Gran % (Auto) Neut % (Auto) Lymph % (Auto) [place] % (Auto) Eos % (Auto) Baso % (Auto) Absolute Neuts (auto) Absolute Lymphs (auto) Total Counted Specimen Type ART Sample Site L Radial pH 7.34 L Bicarbonate Actual 27.2 H POC Total CO2 29 Base Excess 2 O2 Saturation 98 O2 % 50 ABG pCO2 50.3 H ABG pO2 115 H Respiration Rate 16 O2 Delivery Device Vent Vent Mode A-C Tidal Volume 500 POC PEEP 5 EPAP IPAP Blood Gas Notified Whom [facility] Blood Gas Notified Time 2203 Sodium 143 Potassium 4.6 Chloride 108 H Carbon Dioxide 30.0 Anion Gap 5 BUN 13 Creatinine 0.89 Estim Creat Clear Calc 44.99 Est GFR (MDRD) Af Amer 78 Est GFR (MDRD) Non-Af 65 BUN/Creatinine Ratio 14.5 Glucose 116 H Calcium 8.8 Phosphorus 3.6 Magnesium 1.8 Total Bilirubin 0.50 AST 15 ALT 18 Alkaline Phosphatase 76 Ammonia 31.0 Troponin I < 0.015 Total Protein 6.4 Albumin 3.2 Globulin 3.2 Albumin/Globulin Ratio 1.0 POC Glucose Crossmatch 02/04/19 02/05/19 02/05/19 23:22 04:35 04:35 WBC 8.0 RBC 2.59 L Hgb 7.3 L Hct 25.4 L MCV 98.1 MCH 28.2 MCHC 28.7 L RDW 13.8 RDW Differential 47.1 H Plt Count 171 MPV 9.4 Immature Gran % (Auto) Neut % (Auto) Lymph % (Auto) [place] % (Auto) Eos % (Auto) Baso % (Auto) Absolute Neuts (auto) Absolute Lymphs (auto) Total Counted Specimen Type Sample Site pH Bicarbonate Actual POC Total CO2 Base Excess O2 Saturation O2 % ABG pCO2 ABG pO2 Respiration Rate O2 Delivery Device Vent Mode Tidal Volume POC PEEP EPAP IPAP Blood Gas Notified Whom Blood Gas Notified Time Sodium 143 Potassium 3.7 Chloride 108 H Carbon Dioxide 27.0 Anion Gap 8 BUN 13 Creatinine 0.89 Estim Creat Clear Calc 44.99 Est GFR (MDRD) Af Amer 79 Est GFR (MDRD) Non-Af 66 BUN/Creatinine Ratio 14.7 Glucose 104 Calcium 8.6 Phosphorus Magnesium Total Bilirubin AST ALT Alkaline Phosphatase Ammonia Troponin I Total Protein Albumin Globulin Albumin/Globulin Ratio POC Glucose 108 Crossmatch 02/05/19 02/05/19 02/05/19 05:42 10:35 16:16 WBC RBC Hgb Hct MCV MCH MCHC RDW RDW Differential Plt Count MPV Immature Gran % (Auto) Neut % (Auto) Lymph % (Auto) [place] % (Auto) Eos % (Auto) Baso % (Auto) Absolute Neuts (auto) Absolute Lymphs (auto) Total Counted Specimen Type Sample Site pH Bicarbonate Actual POC Total CO2 Base Excess O2 Saturation O2 % ABG pCO2 ABG pO2 Respiration Rate O2 Delivery Device Vent Mode Tidal Volume POC PEEP EPAP IPAP Blood Gas Notified Whom Blood Gas Notified Time Sodium Potassium Chloride Carbon Dioxide Anion Gap BUN Creatinine Estim Creat Clear Calc Est GFR (MDRD) Af Amer Est GFR (MDRD) Non-Af BUN/Creatinine Ratio Glucose Calcium Phosphorus Magnesium Total Bilirubin AST ALT Alkaline Phosphatase Ammonia Troponin I Total Protein Albumin Globulin Albumin/Globulin Ratio POC Glucose 104 136 H 152 H Crossmatch 02/05/19 02/06/19 21:50 06:43 WBC RBC Hgb Hct MCV MCH MCHC RDW RDW Differential Plt Count MPV Immature Gran % (Auto) Neut % (Auto) Lymph % (Auto) [place] % (Auto) Eos % (Auto) Baso % (Auto) Absolute Neuts (auto) Absolute Lymphs (auto) Total Counted Specimen Type Sample Site pH Bicarbonate Actual POC Total CO2 Base Excess O2 Saturation O2 % ABG pCO2 ABG pO2 Respiration Rate O2 Delivery Device Vent Mode Tidal Volume POC PEEP EPAP IPAP Blood Gas Notified Whom Blood Gas Notified Time Sodium Potassium Chloride Carbon Dioxide Anion Gap BUN Creatinine Estim Creat Clear Calc Est GFR (MDRD) Af Amer Est GFR (MDRD) Non-Af BUN/Creatinine Ratio Glucose Calcium Phosphorus Magnesium Total Bilirubin AST ALT Alkaline Phosphatase Ammonia Troponin I Total Protein Albumin Globulin Albumin/Globulin Ratio POC Glucose 179 H 131 H Crossmatch Clinical Impression(s) from Imaging Studies Chest X-Ray 02/02/19 20:45 IMPRESSION: Elevated right hemidiaphragm with bibasilar atelectasis and borderline cardiomegaly. There is no acute infiltrate or mass. Electronically Signed: Micah Lam DO at 21:11 EDT Tel [phone], Service support , Chest X-Ray 02/04/19 20:48 IMPRESSION: 1. Endotracheal tube overlying the thoracic inlet, may advance approximately 2 cm to mid trachea as clinically warranted. 2. Low lung volume and interstitial crowding with underlying interstitial edema not excluded. Electronically Signed: Darnell Blanton DO at 21:53 EDT , Service support , KUB X-Ray 02/04/19 20:48 IMPRESSION: NG tube tip overlying the mid stomach in proper position. Electronically Signed: Darnell Blanton DO at 21:54 EDT , Service support , Medical Necessity - Tobacco Use Smoking Status: Never smoker Tobacco Use: Non-smoker Assessment/Plan All Active Problems Acute on chronic anemia (Acute) RECOMMENDATIONS: 1. Continue to wean supplemental oxygen to maintain saturations at or above 90%. 2. Encourage incentive spirometer use and mobilize patient as tolerated. 3. Monitor blood counts daily. Transfuse if hemoglobin is less than 7 g/dL. 4. Potassium repletion. 5. Continue PPI therapy. 6. Recommend continued empiric utilization of BiPAP with naps and nightly. IMPRESSIONS: 1. Acute hypoxemic and hypercarbic respiratory failure Improved. Likely secondary to sedative medication induced alveolar hypoventilation. Attempts at noninvasive positive pressure ventilation were unsuccessful. The patient did require eventual intubation. However, she was able to be successfully extubated from invasive mechanical ventilatory support within 24 hours. She is currently maintaining appropriate oxygen saturations on minimal supplemental O2. Continue to wean as tolerated. Encourage incentive spirometer use and mobilize patient as tolerated. Recommend continued utilization of BiPAP with naps and nightly, over concerns for underlying sleep disordered breathing. 2. Anemia The patient is status post upper and lower endoscopy with management being dictated by hospitalist and general surgery. Continue to monitor H&H daily, with plans to transfuse if hemoglobin is less than 7 g/dL. Continue PPI therapy as ordered. 3. Suspected obstructive sleep apnea Recommend outpatient pulmonary follow-up so that a diagnostic polysomnogram can be completed. In the interim, recommend utilization of BiPAP therapy with naps and nightly, as ordered. 3. Morbid obesity/hypertension/hypothyroidism/diabetes/hyperlipidemia/GERD Complicates care, management, recovery and prognosis. Continue home medications as indicated. This note was generated with [employer] dictation software. It may contain incorrect words, spelling, and punctuation that were not noted in checking the note before signing. Code Visit Inpatient E&M: 69266 [facility] H[facility] L3
[2019-02-06 07:35] LABS: Absolute Lymphocyte Count 1.06 X10^3/ul (0.83-4.51); Absolute Neutrophil Count 6.2 X10^3/uL (2.0-7.7); Basophil# 0.03 X10^3/uL; Basophil% 0.4 % (0-1); Eosinophil# 0.14 X10^3/uL; Eosinophils% 1.7 % (0-5); Hematocrit 28.8 % (37-47); Hemoglobin 8.5 g/dl (12.0-15.0); Lymphocyte # 1.06 X10^3/ul (4.0); Lymphocyte % 13.1 % (19-41); Mean Corp Hgb Conc 29.5 g/gl (32-36); Mean Corpuscular Hgb 28.6 pg (27.0-32.0); Mean Platelet Vol. 9.2 fl (6.2-12.0); Monocyte# 0.69 X10^3/uL; Monocyte% 8.5 % (0-10); Neutrophil # 6.18 X10^3/uL (2.7-7.7); Neutrophil % 76.1 % (47-70); Platelet Count 175 K/mm3 (150-450); RBC Distribution Width CV 14.8 % (11.6-14.6); RBC Distribution Width SD 51.9 fl (35.1-43.9); Red Blood Count 2.97 M/mm3 (4.2-5.4); White Blood Count 8.1 K/mm3 (4.4-11.0)
[2019-02-06 07:51] LABS: Anion Gap 6 (5-15); BUN 16 mg/dL (7-18); BUN/Creat Ratio 15.2 RATIO (10-20); Calcium,Total 8.6 mg/dL (8.5-10.1); Chloride 104 mmol/L (98-107); Creatinine, Serum 1.05 mg/dL (0.55-1.02); EST Glomerular Filtration Rate 54 mL/min (>60); Est Glom Filt Rate - Afr Amer 65 mL/min (>60); Estimated Creatinine Clearance 38.13 ml/min; Glucose 129 mg/dL (74-106); Potassium 3.4 mmol/L (3.5-5.1); Sodium Level 144 mmol/L (136-145)
[2019-02-06 07:59] LABS: POSITIVE COUNT NO; POSITIVE DIFFERENTIAL NO; POSITIVE MORPHOLOGY NO
--- NOTE | 2019-02-06 08:30 | PN_ITS ---
Patient Problems: Active and Suspected Problems Acute on chronic anemia (Acute) GI bleed (Suspected) Subjective: Patient seen and appears dyspneic at rest. She however requested to be discharged home. Plan is for patient to be assessed for home oxygen prior to making any determination. Objective: GENERAL: Cooperative HEENT: Atraumatic; EYES; Anicteric, Normal Conjunctiva NECK; supple, normal thyroid, RESPIRATORY: Diminished to auscultation bilaterally, CARDIOVASCULAR: Regular S1 S2, s GI: soft, non-tender, normoactive bowel sounds, : No Renal angle tenderness; EXTREMITIES: Bipedal edema, no clubbing, no cyanosis. MUSCULOSKELETAL: No Joint Tenderness; NEURO: Awake; no lateralizing signs. SKIN: No Rash PSYCH; Normal affect Vitals/I&O's: Vital Signs Temp Pulse Resp BP Pulse Ox 98.4 F 83 20 H 123/55 H 94 02/06/19 02:35 02/06/19 07:00 02/06/19 03:24 02/06/19 02:35 02/06/19 08:11 Oxygen Flow Rate (L/min) 2 Oxygen Delivery Method Nasal Cannula Weight: 134.9 kg Body Mass Index (BMI) 48.6 Finger Stick Blood Glucose 104 Intake and Output for Last 24 Hours 02/04/19 02/05/19 02/06/19 23:59 23:59 23:59 Intake Total 6335.7 / 6335.7 2295 / 2295 190 / 190 Output Total 1850 / 1850 3600 / 3600 Balance 4485.7 / 4485.7 -1305 / -1305 190 / 190 Laboratory Results 02/02/19 22:03: Crossmatch See Detail 02/05/19 10:35: POC Glucose 136 H 02/05/19 16:16: POC Glucose 152 H 02/05/19 21:50: POC Glucose 179 H 02/06/19 06:43: POC Glucose 131 H 02/06/19 07:20: Sodium 144, Potassium 3.4 L, Chloride 104, Carbon Dioxide 34.0 H , Anion Gap 6, BUN 16, Creatinine 1.05 H, Estim Creat Clear Calc 38.13, Est GFR (MDRD) Af Amer 65, Est GFR (MDRD) Non-Af 54 L, BUN/Creatinine Ratio 15.2, Glucose 129 H, Calcium 8.6 02/06/19 07:20: WBC 8.1, RBC 2.97 L, Hgb 8.5 L, Hct 28.8 L, MCV 97.0, MCH 28.6, MCHC 29.5 L, RDW 14.8 H, RDW Differential 51.9 H, Plt Count 175, MPV 9.2, Immature Gran % (Auto) 0.200, Neut % (Auto) 76.1 H, Lymph % (Auto) 13.1 L, Forest % (Auto) 8.5, Eos % (Auto) 1.7, Baso % (Auto) 0.4, Absolute Neuts (auto) 6.2, Absolute Lymphs (auto) 1.06, Total Counted Not Reportable Current Medications Acetaminophen (Tylenol) 650 mg PO Q6H PRN PRN PRN Reason: Non-cardiac pain (mod-severe) Last Admin: 02/05/19 09:52 Dose: 650 mg Al Hydroxide/Mg Hydroxide (Mylanta Ii) 15 - 30 ml PO Q4H PRN PRN PRN Reason: INDIGESTION Albuterol Sulfate (Ventolin Aerosols) 2.5 mg INHALATION Q2H PRN PRN PRN Reason: dyspnea, wheezing Last Admin: 02/06/19 03:24 Dose: 2.5 mg Chlorhexidine Gluconate () 1 each TOPICAL DAILY [facility] Last Admin: 02/05/19 09:57 Dose: Not Given Dextrose (D50w Syringe) 0 gm IV X1 PRN; Protocol PRN Reason: Hypoglycemia Furosemide (Lasix) 40 mg IV Q8 [facility] Furosemide (Lasix) 40 mg IV X1 ONE Stop: 02/06/19 08:28 Glucagon () 1 mg IM .X1 PRN PRN Reason: Hypoglycemia Hydralazine HCl (Apresoline Iv) 10 mg IV Q4H PRN PRN PRN Reason: SBP > 160 Hydrochlorothiazide (Hctz) 25 mg PO DAILY [facility] Sodium Chloride () 250 mls @ 15 mls/hr IV .[id number] PRN PRN Reason: SALINE FLUSH Insulin Human Lispro (Humalog Kwikpen (Bkc)) 0 unit SC ACHS [facility]; Protocol Last Admin: 02/06/19 06:44 Dose: Not Given Levothyroxine Sodium (Synthroid) 150 mcg PO DAILY@0600 [facility] Last Admin: 02/06/19 06:44 Dose: 150 mcg Lisinopril (Zestril) 20 mg PO DAILY [facility] Last Admin: 02/05/19 09:49 Dose: 20 mg Ondansetron HCl (Zofran) 4 mg IV Q8H PRN PRN PRN Reason: NAUSEA/VOMITING Last Admin: 02/04/19 06:04 Dose: 4 mg Pantoprazole Sodium (Protonix) 40 mg PO DAILY [facility] Potassium Chloride (K-Dur) 40 meq PO X1 ONE Stop: 02/06/19 08:31 Potassium Chloride (K-Dur) 20 meq PO BIDCM [facility] Sodium Chloride () 5 - 15 ml IV UD PRN PRN Reason: SALINE FLUSH Last Admin: 02/05/19 21:56 Dose: 10 ml Medical Necessity - Tobacco Use Smoking Status: Never smoker Tobacco Use: Non-smoker Assessment/Plan All Active Problems Acute on chronic anemia (Acute) Patient is a 78-year-old lady with past medical history cigar for diabetes mellitus type 2 hypothyroidism who was sent to the emergency department by the PCP on account of patient complaining of progressive generalized fatigue with low hemoglobin level. On assessment of possible acute on chronic GI bleed was made admitted to regular nursing floor with consultation placed to general surgery for possible endoscopic evaluation. 1. Acute hypoxic and hypercapnic respiratory failure attributed to effect of anesthesia in the setting of suspected obstructive sleep apnea. Patient failed to respond to noninvasive ventilation BiPAP and had to be intubated and transferred to the intensive care unit. Patient was weaned off the vent on the morning of 02/05/2019 2. Symptomatic anemia suspected to be secondary to acute on chronic blood loss possibly from the GI tract. Underwent EGD and colonoscopy on 02/04/[address] Fernández with no identifiable source of bleeding found. Patient has since received 2 doses of Venofer 100 mg and order was given for patient to be transfused with 1 unit PRBC on 02/05/2019. 3. Hypertension-blood pressure controlled, home medications continued with dose adjustment as needed next 4. Diabetes mellitus type 2 held patient oral agents did continue with Accu- Cheks before meals and at bedtime with sliding scale coverage 5. Hypothyroidism-patient is on levothyroxine home dose continued 6. Chronic bilateral lower extremity lymphedema did encourage the use of bilateral HENRIETTA hoses 7. Dyslipidemia 8. GERD on PPI 9. Morbid obesity with BMI of 48.7 weight loss advised 10. Suspected sleep apnea patient undergo sleep study as outpatient 11. Acute congestive heart failure suspected to be secondary to heart failure with preserved ejection fraction (diastolic dysfunction) check history obtained after patient's intubation demonstrated evidence of edema and order was given for patient to receive Lasix echo ordered for EF assessment echo demonstrated EF of 65% consistent with heart failure secondary to heart failure with preserved ejection fraction. Patient on Lasix. 12. DVT prophylaxis bilateral SCDs 13. Hypokalemia corrected per protocol Code Visit Inpatient E&M: 62548 Subs Hosp L2
[2019-02-06] MEDS: Pantoprazole Sodium 40 MG Tablet PO (08:54)
[2019-02-06] MEDS: hydroCHLOROthiazide 25 MG Tablet PO (08:54)
[2019-02-06] MEDS: Lisinopril 20 MG Tablet PO (08:54)
[2019-02-06] MEDS: 0.9% NaCl Peripheral Flush Adult/Peds IV ×2 (08:54→22:07)
[2019-02-06] MEDS: Furosemide 40 MG/4 ML Vial IV ×3 (08:54→22:07)
[2019-02-06] MEDS: Insulin Lispro 100 UNIT/ML INSULN.PEN SC ×3 (10:58→22:07)
[2019-02-06] MEDS: Acetaminophen 325 MG Tablet 650 MG PO (11:01)
[2019-02-06 11:05] LABS: Bedside Glucose 230 mg/dL (70-110)
[2019-02-06 16:35] LABS: Bedside Glucose 170 mg/dL (70-110)
--- NOTE | 2019-02-06 22:00 | NURSING ---
This RN discussed using the Bipap with patient. Patient stated she does not like to use it due to her feeling claustrophobic while wearing the mask.
--- NOTE | 2019-02-06 22:29 | CPS ---
Discussed with patient about wearing BiPAP tonight. Patient told me @ 1854 that she did not want to wear BiPAP tonight. Pt. aware of importance of wearing BiPAP, but discussed not tolerating it well the previous night.
[2019-02-06 22:55] LABS: Bedside Glucose 169 mg/dL (70-110)
[2019-02-07] VITALS (13 sets, daily range): BP systolic 103–130; BP diastolic 51–76; PULSE 76–128; RESP 16–24; TEMP 36.3–37; O2SAT 90–97
[2019-02-07] MEDS: Albuterol 2.5 MG/3 ML VIAL.NEB. INHALATION (05:59)
--- NOTE | 2019-02-07 06:42 | RAD_ITS ---
STUDY: X-RAY CHEST REASON FOR EXAM: Female, 78 years old. Shortness of breath, dyspnea. TECHNIQUE: PA and lateral chest COMPARISON: 02/04/2018 chest x-ray, CT abdomen and pelvis 09/12/2014 FINDINGS: Chronic elevation of the right hemidiaphragm. There is mild blunting of the costophrenic angles in the lateral view, which may be atelectatic or effusion. There is no apparent acute pulmonary infiltrate. Moderate cardiomegaly. Mild aortomegaly. Prominence of the central pulmonary arteries. Normal trent margins. No acute osseous or upper abdominal process. RAD/Chest PA and Lateral IMPRESSION: In the lateral view there is mild blunting of costophrenic angles. This may be atelectatic or minimal effusion. Chronic elevation/eventration right hemidiaphragm. Stable cardiomegaly. Electronically Signed: Jose J Jackson MD at 11:54 EDT Tel , Service support ,
[2019-02-07] MEDS: Furosemide 40 MG/4 ML Vial IV ×3 (06:51→21:36)
[2019-02-07] MEDS: Levothyroxine 150 MCG Tablet PO (06:51)
[2019-02-07] MEDS: 0.9% NaCl Peripheral Flush Adult/Peds IV ×2 (06:51→21:36)
--- NOTE | 2019-02-07 06:55 | PCM.PN.PUL ---
Patient Problems: Active and Suspected Problems Acute on chronic anemia (Acute) GI bleed (Suspected) Subjective: The patient was seen and examined at the bedside this morning. Events from the last 24 hours have been reviewed. The patient is currently afebrile, hemodynamically stable and maintaining appropriate oxygen saturations on 2 L/min via nasal cannula. The patient refused to wear BiPAP overnight. Objective: The patient's most recent lab work, culture data and imaging studies have all been personally reviewed. On February 04, the patient underwent both upper and lower endoscopy procedures. Her lower endoscopy revealed nonbleeding external and internal hemorrhoids. Upper endoscopy revealed a normal esophagus and stomach. Surface echocardiogram dated February 05 revealed normal LV size and thickness with an ejection fraction of 65%. There was severe focal mitral valve thickening. There was also note of moderate aortic stenosis. - Physical Exam General: Alert, Cooperative, No apparent distress, - - Morbidly obese. HEENT: Atraumatic, PERRLA, Normocephalic Oral: No Gingival or Mucosal Lesions/ Ulcerations Neck: Supple, No Nodes, Trachea Midline, - - Large neck circumference with redundant soft tissue. Lungs: No rhonchi, No wheeze, No rales, Diminished Cardiovascular: Regular rate, Regular Rhythm, Normal S1, Normal S2, Murmur Abdomen: Bowel Sounds Present, Soft, Non Tender, Non-Distended, Obese Extremities: No clubbing, No cyanosis, Edema Skin: - - No significant change from previous. Musculoskeletal: No Tenderness to Palpation of Joints or Extremities, No Muscle Wasting Lymphatic: No Cervical, Supraclavicular, or Inguinal Adenopathy Neurological: Cranial nerves II-XII grossly intact, Neuro grossly intact Psych/Mental Status: Normal Affect, Appropriate Vital Signs Temp Pulse Resp BP Pulse Ox 97.4 F L 86 24 H 110/52 L 90 02/07/19 03:42 02/07/19 06:45 02/07/19 05:59 02/07/19 06:45 02/07/19 05:59 Oxygen Flow Rate (L/min) [ 3 AMBULATION with Oxygen] Oxygen Flow Rate (L/min) 2 Oxygen Delivery Method Nasal Cannula Weight: 285 lb 7.978 oz Body Mass Index (BMI) 48.6 Finger Stick Blood Glucose 104 Intake and Output for Last 24 Hours 02/05/19 02/06/19 02/07/19 23:59 23:59 23:59 Intake Total 2295 / 2295 1880 / 1880 240 / 240 Output Total 3600 / 3600 900 / 900 1000 / 1000 Balance -1305 / -1305 980 / 980 -760 / -760 Laboratory Tests Past 24 Hrs 02/06/19 02/06/19 07:20 07:20 WBC 8.1 RBC 2.97 L Hgb 8.5 L Hct 28.8 L MCV 97.0 MCH 28.6 MCHC 29.5 L RDW 14.8 H RDW Differential 51.9 H Plt Count 175 MPV 9.2 Immature Gran % (Auto) 0.200 Neut % (Auto) 76.1 H Lymph % (Auto) 13.1 L White % (Auto) 8.5 Eos % (Auto) 1.7 Baso % (Auto) 0.4 Absolute Neuts (auto) 6.2 Absolute Lymphs (auto) 1.06 Total Counted Not Reportable Sodium 144 Potassium 3.4 L Chloride 104 Carbon Dioxide 34.0 H Anion Gap 6 BUN 16 Creatinine 1.05 H Estim Creat Clear Calc 38.13 Est GFR (MDRD) Af Amer 65 Est GFR (MDRD) Non-Af 54 L BUN/Creatinine Ratio 15.2 Glucose 129 H Calcium 8.6 POC Glucose 02/06/19 02/06/19 02/06/19 22:02 16:26 10:57 POC Glucose 169 H 170 H 230 H Clinical Impression(s) from Imaging Studies Chest X-Ray 02/02/19 20:45 IMPRESSION: Elevated right hemidiaphragm with bibasilar atelectasis and borderline cardiomegaly. There is no acute infiltrate or mass. Electronically Signed: Micah Lam DO at 21:11 EDT Tel [phone], Service support , Chest X-Ray 02/04/19 20:48 IMPRESSION: 1. Endotracheal tube overlying the thoracic inlet, may advance approximately 2 cm to mid trachea as clinically warranted. 2. Low lung volume and interstitial crowding with underlying interstitial edema not excluded. Electronically Signed: Darnell Blanton DO at 21:53 EDT , Service support , KUB X-Ray 02/04/19 20:48 IMPRESSION: NG tube tip overlying the mid stomach in proper position. Electronically Signed: Darnell BlantonDO at 21:54 EDT , Service support , Medical Necessity - Tobacco Use Smoking Status: Never smoker Tobacco Use: Non-smoker Assessment/Plan All Active Problems Acute on chronic anemia (Acute) RECOMMENDATIONS: 1. Continue to wean supplemental oxygen to maintain saturations at or above 90%. 2. Encourage incentive spirometer use and mobilize patient as tolerated. 3. Monitor blood counts daily. Transfuse if hemoglobin is less than 7 g/dL. 4. Continue PPI therapy. 5. Recommend continued empiric utilization of BiPAP with naps and nightly. 6. Outpatient pulmonary follow-up to obtain diagnostic polysomnogram, if the patient wishes to pursue OCTAVIO work up. IMPRESSIONS: 1. Acute hypoxemic and hypercarbic respiratory failure Improved. Likely secondary to sedative medication induced alveolar hypoventilation. Attempts at noninvasive positive pressure ventilation were unsuccessful. The patient did require eventual intubation. However, she was able to be successfully extubated from invasive mechanical ventilatory support within 24 hours. She is currently maintaining appropriate oxygen saturations on minimal supplemental O2. The patient does have underlying valvular heart disease based upon her echocardiogram and is being maintained on diuretic therapy accordingly. Continue to wean supplemental oxygen as tolerated. Encourage incentive spirometer use and mobilize patient as tolerated. Although it was recommended that the patient be maintained on BiPAP with naps and nightly, the patient has been refusing said therapy. I do feel that it would be beneficial for the patient's health and well-being to be evaluated for sleep disordered breathing. However, she does not seem overtly interested at this time. If the patient changes her mind with regards to outpatient OCTAVIO work-up, she can follow-up in the pulmonary medicine clinic upon discharge so that testing can be completed. 2. Anemia The patient is status post upper and lower endoscopy with management being dictated by hospitalist and general surgery. Continue to monitor H&H daily, with plans to transfuse if hemoglobin is less than 7 g/dL. Continue PPI therapy as ordered. 3. Suspected obstructive sleep apnea Recommend outpatient pulmonary follow-up so that a diagnostic polysomnogram can be completed. In the interim, recommend utilization of BiPAP therapy with naps and nightly, as ordered. 4. Morbid obesity/hypertension/hypothyroidism/diabetes/hyperlipidemia/GERD Complicates care, management, recovery and prognosis. Continue home medications as indicated. This note was generated with Work in [employer] software. It may contain incorrect words, spelling, and punctuation that were not noted in checking the note before signing. DISPOSITION: Given the patient's lack of ongoing ICU needs, will sign off. If the patient changes her mind with regards to wishing to pursue an obstructive sleep apnea work-up, she can follow-up in the pulmonary medicine clinic upon discharge so that a diagnostic polysomnogram can be completed. Code Visit Inpatient E&M: 36109 Subs Hosp L2
[2019-02-07 07:16] LABS: Bedside Glucose 137 mg/dL (70-110)
[2019-02-07] MEDS: BENZOCAINE/MENTHOL 1 LOZENGE 2 LOZENGE MUCOUS MEM (07:25)
[2019-02-07] MEDS: Lisinopril 20 MG Tablet PO (09:04)
[2019-02-07] MEDS: hydroCHLOROthiazide 25 MG Tablet PO (09:04)
[2019-02-07] MEDS: Pantoprazole Sodium 40 MG Tablet PO (09:04)
--- NOTE | 2019-02-07 10:04 | PN_ITS ---
Patient Problems: Active and Suspected Problems Acute on chronic anemia (Acute) GI bleed (Suspected) Subjective: Patient seen still remains dyspneic at rest. Her oxygen saturation dropped to 83% on room air the day prior. Chest x-ray ordered for subsequent evaluation this a.m. demonstrated mild blunting of costophrenic angles which may be atelectatic or minimal effusion.. Patient oxygen requirement improving Lasix switch from IV to p.o. Objective: GENERAL: Cooperative HEENT: Atraumatic; EYES; Anicteric, Normal Conjunctiva NECK; supple, normal thyroid, RESPIRATORY: Diminished to auscultation bilaterally, CARDIOVASCULAR: Regular S1 S2, s GI: soft, non-tender, normoactive bowel sounds, : No Renal angle tenderness; EXTREMITIES: Bipedal edema, no clubbing, no cyanosis. MUSCULOSKELETAL: No Joint Tenderness; NEURO: Awake; no lateralizing signs. SKIN: No Rash PSYCH; Normal affect Vitals/I&O's: Vital Signs Temp Pulse Resp BP Pulse Ox 98.0 F 88 16 103/51 L 96 02/07/19 09:17 02/07/19 09:17 02/07/19 09:17 02/07/19 09:17 02/07/19 09:17 Oxygen Flow Rate (L/min) [ 3 AMBULATION with Oxygen] Oxygen Flow Rate (L/min) 3 Oxygen Delivery Method Nasal Cannula Weight: 129.5 kg Body Mass Index (BMI) 48.6 Finger Stick Blood Glucose 104 Intake and Output for Last 24 Hours 02/05/19 02/06/19 02/07/19 23:59 23:59 23:59 Intake Total 2295 / 2295 1880 / 1880 240 / 240 Output Total 3600 / 3600 900 / 900 1000 / 1000 Balance -1305 / -1305 980 / 980 -760 / -760 Laboratory Results 02/06/19 10:57: POC Glucose 230 H 02/06/19 16:26: POC Glucose 170 H 02/06/19 22:02: POC Glucose 169 H 02/07/19 06:56: POC Glucose 137 H Current Medications Acetaminophen (Tylenol) 650 mg PO Q6H PRN PRN PRN Reason: Non-cardiac pain (mod-severe) Last Admin: 02/06/19 11:01 Dose: 650 mg Al Hydroxide/Mg Hydroxide (Mylanta Ii) 15 - 30 ml PO Q4H PRN PRN PRN Reason: INDIGESTION Albuterol Sulfate (Ventolin Aerosols) 2.5 mg INHALATION Q2H PRN PRN PRN Reason: dyspnea, wheezing Last Admin: 02/07/19 05:59 Dose: 2.5 mg Dextrose (D50w Syringe) 0 gm IV X1 PRN; Protocol PRN Reason: Hypoglycemia Furosemide (Lasix) 40 mg IV Q8 [facility] Last Admin: 02/07/19 06:51 Dose: 40 mg Glucagon () 1 mg IM .X1 PRN PRN Reason: Hypoglycemia Hydralazine HCl (Apresoline Iv) 10 mg IV Q4H PRN PRN PRN Reason: SBP > 160 Hydrochlorothiazide (Hctz) 25 mg PO DAILY [facility] Last Admin: 02/07/19 09:04 Dose: 25 mg Sodium Chloride () 250 mls @ 15 mls/hr IV .[id number] PRN PRN Reason: SALINE FLUSH Insulin Human Lispro (Humalog Kwikpen (Bkc)) 0 unit SC ACHS [facility]; Protocol Last Admin: 02/07/19 07:00 Dose: Not Given Levothyroxine Sodium (Synthroid) 150 mcg PO DAILY@0600 [facility] Last Admin: 02/07/19 06:51 Dose: 150 mcg Lisinopril (Zestril) 20 mg PO DAILY [facility] Last Admin: 02/07/19 09:04 Dose: 20 mg Ondansetron HCl (Zofran) 4 mg IV Q8H PRN PRN PRN Reason: NAUSEA/VOMITING Last Admin: 02/04/19 06:04 Dose: 4 mg Pantoprazole Sodium (Protonix) 40 mg PO DAILY [facility] Last Admin: 02/07/19 09:04 Dose: 40 mg Potassium Chloride (K-Dur) 20 meq PO BIDCM [facility] Last Admin: 02/07/19 09:04 Dose: 20 meq Sodium Chloride () 5 - 15 ml IV UD PRN PRN Reason: SALINE FLUSH Last Admin: 02/07/19 06:51 Dose: 10 ml Throat Lozenges (Cepacol Sore Throat Lozenge) 2 lozenge MUCOUS MEM Q2H PRN PRN PRN Reason: SORE THROAT Last Admin: 02/07/19 07:25 Dose: 2 lozenge Medical Necessity - Tobacco Use Smoking Status: Never smoker Tobacco Use: Non-smoker Assessment/Plan All Active Problems Acute on chronic anemia (Acute) Patient is a 78-year-old lady with past medical history cigar for diabetes mellitus type 2 hypothyroidism who was sent to the emergency department by the PCP on account of patient complaining of progressive generalized fatigue with low hemoglobin level. On assessment of possible acute on chronic GI bleed was made admitted to regular nursing floor with consultation placed to general surgery for possible endoscopic evaluation. 1. Acute hypoxic and hypercapnic respiratory failure attributed to effect of anesthesia in the setting of suspected obstructive sleep apnea. Patient failed to respond to noninvasive ventilation BiPAP and had to be intubated and transferred to the intensive care unit. Patient was weaned off the vent on the morning of 02/05/2019 2. Symptomatic anemia suspected to be secondary to acute on chronic blood loss possibly from the GI tract. Underwent EGD and colonoscopy on 02/04/[address] Fernández with no identifiable source of bleeding found. Patient has since received 2 doses of Venofer 100 mg and order was given for patient to be transfused with 1 unit PRBC on 02/05/2019. 3. Acute congestive heart failure suspected to be secondary to heart failure with preserved ejection fraction (diastolic dysfunction); echo demonstrated EF of 65% patient was placed on Lasix with good response switched from IV to p.o. Lasix starting 02/07/2019 4. Diabetes mellitus type 2 held patient oral agents did continue with Accu- Cheks before meals and at bedtime with sliding scale coverage 5. Hypothyroidism-patient is on levothyroxine home dose continued 6. Chronic bilateral lower extremity lymphedema did encourage the use of bilateral HENRIETTA hoses 7. Dyslipidemia 8. GERD on PPI 9. Morbid obesity with BMI of 48.7 weight loss advised 10. Suspected sleep apnea patient undergo sleep study as outpatient 11. Hypertension-blood pressure controlled, home medications continued with dose adjustment as needed 12. DVT prophylaxis bilateral SCDs 13. Hypokalemia corrected per protocol Code Visit Inpatient E&M: 98344 Subs Hosp L2
[2019-02-07 11:08] LABS: Absolute Lymphocyte Count 1.02 X10^3/ul (0.83-4.51); Absolute Neutrophil Count 5.4 X10^3/uL (2.0-7.7); Basophil# 0.02 X10^3/uL; Basophil% 0.3 % (0-1); Eosinophil# 0.14 X10^3/uL; Hematocrit 29.7 % (37-47); Hemoglobin 8.6 g/dl (12.0-15.0); Lymphocyte # 1.02 X10^3/ul (4.0); Lymphocyte % 14.3 % (19-41); Mean Corpuscular Hgb 28.2 pg (27.0-32.0); Mean Corpuscular Volume 97.4 fL (81-99); Mean Platelet Vol. 9.6 fl (6.2-12.0); Monocyte# 0.53 X10^3/uL; Monocyte% 7.4 % (0-10); Neutrophil # 5.41 X10^3/uL (2.7-7.7); Neutrophil % 75.9 % (47-70); POSITIVE COUNT NO; POSITIVE DIFFERENTIAL NO; POSITIVE MORPHOLOGY NO; Platelet Count 213 K/mm3 (150-450); RBC Distribution Width CV 14.7 % (11.6-14.6); RBC Distribution Width SD 51.9 fl (35.1-43.9); Red Blood Count 3.05 M/mm3 (4.2-5.4); White Blood Count 7.1 K/mm3 (4.4-11.0)
[2019-02-07] MEDS: Insulin Lispro 100 UNIT/ML INSULN.PEN SC ×2 (11:20→16:01)
[2019-02-07 11:26] LABS: Bedside Glucose 270 mg/dL (70-110)
[2019-02-07 11:29] LABS: Anion Gap 5 (5-15); BUN 21 mg/dL (7-18); BUN/Creat Ratio 16.2 RATIO (10-20); Calcium,Total 8.6 mg/dL (8.5-10.1); Chloride 98 mmol/L (98-107); EST Glomerular Filtration Rate 42 mL/min (>60); Est Glom Filt Rate - Afr Amer 51 mL/min (>60); Glucose 282 mg/dL (74-106); Magnesium 1.2 mg/dL (1.6-2.6); Potassium 3.5 mmol/L (3.5-5.1); Sodium Level 138 mmol/L (136-145)
[2019-02-07 16:15] LABS: Bedside Glucose 155 mg/dL (70-110)
[2019-02-07 22:26] LABS: Bedside Glucose 149 mg/dL (70-110)
[2019-02-08] VITALS (11 sets, daily range): BP systolic 100–118; BP diastolic 42–57; PULSE 82–162; RESP 16–17; TEMP 36.6–37.2; O2SAT 84–97
--- NOTE | 2019-02-08 01:13 | NURSING ---
Patient stated she did not want to wear her bi-pap at night, she feels claustrophobic with it on. This RN discussed the benefits of wearing her bi-pap at night and the risk of not wearing it. Patient verbalizes understanding and will think about if she would like to wear it or not. It was also explained to patient there are different types of mask to try and get pass the claustrophobia.
[2019-02-08 06:30] LABS: Absolute Lymphocyte Count 1.41 X10^3/ul (0.83-4.51); Absolute Neutrophil Count 4.4 X10^3/uL (2.0-7.7); Basophil# 0.02 X10^3/uL; Basophil% 0.3 % (0-1); Eosinophils% 3.1 % (0-5); Hematocrit 29.9 % (37-47); Hemoglobin 8.8 g/dl (12.0-15.0); Lymphocyte # 1.41 X10^3/ul (4.0); Lymphocyte % 21.6 % (19-41); Mean Corp Hgb Conc 29.4 g/gl (32-36); Mean Corpuscular Hgb 28.8 pg (27.0-32.0); Mean Corpuscular Volume 97.7 fL (81-99); Mean Platelet Vol. 9.2 fl (6.2-12.0); Monocyte# 0.52 X10^3/uL; Neutrophil # 4.36 X10^3/uL (2.7-7.7); Neutrophil % 66.8 % (47-70); Platelet Count 198 K/mm3 (150-450); RBC Distribution Width CV 14.7 % (11.6-14.6); RBC Distribution Width SD 51.8 fl (35.1-43.9); Red Blood Count 3.06 M/mm3 (4.2-5.4); White Blood Count 6.5 K/mm3 (4.4-11.0)
[2019-02-08 06:45] LABS: POSITIVE COUNT NO; POSITIVE DIFFERENTIAL NO; POSITIVE MORPHOLOGY NO
[2019-02-08] MEDS: Levothyroxine 150 MCG Tablet PO (06:49)
[2019-02-08] MEDS: 0.9% NaCl Peripheral Flush Adult/Peds IV ×2 (06:49→14:16)
[2019-02-08] MEDS: Furosemide 40 MG/4 ML Vial IV ×2 (06:49→14:16)
[2019-02-08 06:54] LABS: Anion Gap 3 (5-15); BUN 26 mg/dL (7-18); BUN/Creat Ratio 20.5 RATIO (10-20); Calcium,Total 8.7 mg/dL (8.5-10.1); Chloride 99 mmol/L (98-107); Creatinine, Serum 1.27 mg/dL (0.55-1.02); EST Glomerular Filtration Rate 43 mL/min (>60); Est Glom Filt Rate - Afr Amer 52 mL/min (>60); Estimated Creatinine Clearance 31.53 ml/min; Glucose 130 mg/dL (74-106); Magnesium 1.5 mg/dL (1.6-2.6); Potassium 3.8 mmol/L (3.5-5.1); Sodium Level 139 mmol/L (136-145)
[2019-02-08 07:11] LABS: Bedside Glucose 137 mg/dL (70-110)
[2019-02-08] MEDS: Pantoprazole Sodium 40 MG Tablet PO (09:39)
[2019-02-08] MEDS: Lisinopril 20 MG Tablet PO (09:39)
[2019-02-08] MEDS: Insulin Lispro 100 UNIT/ML INSULN.PEN SC (11:31)
[2019-02-08 11:36] LABS: Bedside Glucose 192 mg/dL (70-110)
--- NOTE | 2019-02-08 12:19 | CT_ITS ---
STUDY: CTA CHEST REASON FOR EXAM: Female, 78 years old. Worsening shortness of breath RADIATION DOSAGE (If Supplied By Facility): CTDIvol = ( 15.04 ) mGy, DLP = ( 505.72 ) mGycm TECHNIQUE: The examination was performed with the intravenous administration of 100 IV Isovue 370. Post-processing of the angiographic images was performed, with multiplanar reformation and 3D reconstruction. Individualized dose optimization techniques were used for this CT. COMPARISON: Previous plain films FINDINGS: There is limited enhancement of the main pulmonary artery and right and left pulmonary arteries. There is limited enhancement of the bilateral peripheral pulmonary arteries. There is no demonstrated pulmonary embolism. Normal thoracic aorta and visualized great vessels. There is no demonstrated aortic dissection. Normal heart and pericardium. Normal mediastinum. Normal hilar regions. There is peribronchial thickening. The lungs are well expanded. Chronic interstitial changes in both lung vuong with dependent atelectasis. Normal pleura. Normal chest wall structures. There are degenerative changes of thoracic spine. Limited cuts through the upper abdomen do not show a suspicious solid organ abnormality CT/CTA Chest W/WO Contrast IMPRESSION: No demonstrated PE, or thoracic aortic aneurysm or dissection. However, contrast bolus within the pulmonary arteries is not optimal, and a subtle filling defect could be present and overlooked in the distal vessels. Chronic interstitial changes, no superimposed infiltrate or effusion Chronic bronchitis Electronically Signed: Krishna Henderson MD at 14:12 EDT , Service support ,
--- NOTE | 2019-02-08 15:37 | DCINST_ITS ---
- Discharge Diagnoses Current Active Problems: Current Active and Chronic Problems Acute on chronic anemia (Acute) Morbid obesity (Chronic) HTN (hypertension) (Chronic) HLD (hyperlipidemia) (Chronic) Hypothyroidism (Chronic) Diabetes mellitus, type II (Chronic) You will use the following diet at home:: Calorie/Carbohydrate Controlled (specify 1200, 1400, etc) - 1800 raj Your food should be the consistency of: Regular Your liquids should be the consistency of: Regular/Thin Discharge Activity: Return to Normal Activity Weight Bearing Status: Full weight bearing Additional Instructions: USE OXYGEN AT 2 LITERS PER MINUTE Allergies/Adverse Reactions: Allergies No Known Allergies Allergy (Verified 09/12/14 11:51) Medications to take at Discharge Lisinopril [Zestril] 20 mg PO DAILY 09/12/14 Metformin HCl [Glucophage] 1,000 mg PO BIDCM 09/12/14 traMADol [Ultram] 50 mg PO PRN PRN 09/12/14 Levothyroxine [Synthroid] 150 mcg PO DAILY 02/02/19 Multivit-Minerals/Folic Acid [Centrum Multigummies] 150 mcg PO DAILY 02/02/19 Acetaminophen [Tylenol Tablet] 650 mg PO Q6H PRN PRN tablet 02/08/19 Ferrous Sulfate 325 mg PO BIDCM #60 tab 02/08/19 Furosemide [Lasix] 40 mg PO DAILY #30 tab 02/08/19 Potassium Chloride [K-Dur] 20 meq PO DAILY #30 tab 02/08/19 The following prescriptions were given: Furosemide [Lasix] 40 mg PO DAILY #30 tab Potassium Chloride [K-Dur] 20 meq PO DAILY #30 tab Ferrous Sulfate 325 mg PO BIDCM #60 tab Primary Care Physician: Anisa Ramirez MD [STAFF PHYSICIAN] - Please follow up with your Primary Care Physician in: in one week Test Results: Test results from this visit will be discussed in further detail at your follow- up appointment, if applicable.
--- NOTE | 2019-02-08 16:04 | CASEMGMT ---
Pt now to be discharged today and pt does qualify for home oxygen at 84%room air at rest. Pt prefers [facility] for home oxygen at this time and referral faxed to them at this time. Call to Carla at [facility]( ) and she states that they have the referral for pt and will deliver tank to pt as she is leaving today. Adrian MATSON aware at this time, voices understanding. Howard MATSON CM
--- NOTE | 2019-02-08 17:49 | NURSING ---
At 1700 patient's daughter came to desk to express her frustration with how long the O2 is taking to arrive. This RN explained to her that it was an outside company and that we did not have any control but can call for an update. The charge nurse called the O2 company ([employer]) and the customer service line had closed for the day with no option for after hours. This RN went to patient room to provide update. Explained this to patient and her son. Daughter was not present in the room Patient and son voiced understanding.
--- NOTE | 2019-02-08 18:14 | CCHN_ITS ---
Hospitalist Note Patient was seen and examined today, she is requiring 2 L via nasal cannula to maintain her pulse ox. At rest on room air, patient's pulse ox was 84%, on ambulation the patient's pulse ox was 93% on 2 L via nasal cannula. Patient will be discharged today on 2 L via nasal cannula continuously, she is expected to use the oxygen on a continuous basis and is able to use portable oxygen- patient is mobile outside her home. The reasons for patient's hypoxia appears to be hypoventilation syndrome (pickwickian syndrome).
[2019-02-08 18:16] LABS: Bedside Glucose 138 mg/dL (70-110)
--- NOTE | 2019-02-09 09:12 | CASEMGMT ---
F2F faxed to [facility] at this time. Howard MATSON CM
--- NOTE | 2019-02-09 18:49 | PCM.DC.SUM ---
Discharge Date and Diagnosis Date of Admission: 02/02/19 Date of Discharge: 02/08/19 - Primary Discharge Diagnosis #1 acute hypoxic and hypercapnic respiratory failure secondary to anemia with an overlay of anesthesia with an overlay of suspected obstructive sleep apnea (undiagnosed) #2 acute on chronic anemia secondary to iron deficiency-believed to be secondary to undiagnosed gastrointestinal bleeding requiring blood transfusion #3 acute diastolic congestive heart failure #4 type 2 diabetes #5 chronic lower extremity lymphedema #6 morbid obesity #7 hypertension #8 hypokalemia #9 external and internal hemorrhoids #10 duodenal polyp #11 aortic valve stenosis-moderate #12 moderate mitral valve stenosis - Secondary Discharge Diagnosis Chronic Problems Morbid obesity (Chronic) HTN (hypertension) (Chronic) Hypothyroidism (Chronic) Diabetes mellitus, type II (Chronic) Hospital Course and Treatment Operations: None Procedures: 2-D Echocardiogram, Blood transfusion, Colonoscopy, EGD Summary of Care Provided: The patient is a 78 year old F who was seen in the emergency room at [facility] after her PCP obtained a hemoglobin on the patient which was low, patient came to the ED for evaluation. Labs obtained in the emergency room showed an abnormal hemoglobin at 8.5, BUN was elevated at 22, and glucose was elevated at 156. Hospitalist service was contacted for admission and general surgery was consulted. Patient's pulse ox was noted to be low and this was felt to be secondary to her anemia. Patient was admitted to [facility] initially, she was seen in consultation by general surgery, and iron studies were obtained which showed the patient to be iron deficient. Venofer was administered, 1 unit of packed red blood cells was given to the patient. EGD and colonoscopy was performed, internal and external hemorrhoids were noted to be present but these were nonbleeding, patient had a small polyp in the duodenum, no evidence of bleeding was noted during both test. Following endoscopy, patient remained lethargic and BiPAP had to be placed, she ultimately had to be intubated and patient was transferred to the ICU and was seen in consultation by pulmonary medicine. Echocardiogram was obtained which showed a preserved ejection fraction, moderate aortic stenosis was noted to be present as well as moderate mitral valve stenosis. Patient was given IV Lasix, she was subsequently extubated without incident. Patient was transferred to PCU but remained on nasal cannula oxygen. CT of the chest was obtained which showed no evidence of PE. On 02/08/2019, patient was seen and examined: On examination she appeared in good health and spirits. Vital signs as documented. Skin warm and dry and without overt rashes. Neck without JVD. Lungs clear. Heart exam notable for regular rhythm, normal sounds and absence of murmurs, rubs or gallops. Abdomen unremarkable and without evidence of organomegaly, masses, or abdominal aortic enlargement, patient is morbidly obese. Extremities-chronic lymphedematous changes are noted over the patient's lower legs. Neuro: Cranial nerves II through XII are grossly intact, no focal motor deficits were noted, sensation to light touch and pinprick is intact. Psych: Patient is alert and oriented x3, she does not appear anxious or depressed On 02/08/2019, patient was seen and examined and felt to be in stable condition for discharge home, she required low flow nasal cannula oxygen at the time of discharge-please see dictated hospitalist note concerning her oxygen requirement. - Physical Exam Vital Signs Temp Pulse Resp BP Pulse Ox 99.0 F 89 16 100/44 L 93 02/08/19 15:00 02/08/19 15:50 02/08/19 15:00 02/08/19 15:00 02/08/19 15:13 Oxygen Flow Rate (L/min) [ 2 AMBULATION with Oxygen] Oxygen Flow Rate (L/min) [At 0 REST on Room Air] Oxygen Flow Rate (L/min) 2 Oxygen Delivery Method Nasal Cannula Weight: 127.8 kg Body Mass Index (BMI) 48.6 Finger Stick Blood Glucose 104 Intake and Output for Last 24 Hours 02/07/19 02/08/19 02/09/19 23:59 23:59 23:59 Intake Total 1780 / 1780 1140 / 1140 Output Total 4000 / 4000 1400 / 1400 Balance -2220 / -2220 -260 / -260 Discharge Activity: Return to Normal Activity Weight Bearing Status: Full weight bearing Home Medications: Medications to take at Discharge Lisinopril [Zestril] 20 mg PO DAILY 09/12/14 Metformin HCl [Glucophage] 1,000 mg PO BIDCM 09/12/14 traMADol [Ultram] 50 mg PO PRN PRN 09/12/14 Levothyroxine [Synthroid] 150 mcg PO DAILY 02/02/19 Multivit-Minerals/Folic Acid [Centrum Multigummies] 150 mcg PO DAILY 02/02/19 Acetaminophen [Tylenol Tablet] 650 mg PO Q6H PRN PRN tablet 02/08/19 Ferrous Sulfate 325 mg PO BIDCM #60 tab 02/08/19 Furosemide [Lasix] 40 mg PO DAILY #30 tab 02/08/19 Potassium Chloride [K-Dur] 20 meq PO DAILY #30 tab 02/08/19 Following Prescrptions Were Given to Patient: Furosemide [Lasix] 40 mg PO DAILY #30 tab Potassium Chloride [K-Dur] 20 meq PO DAILY #30 tab Ferrous Sulfate 325 mg PO BIDCM #60 tab Primary Care Physician: Anisa Ramirez MD [STAFF PHYSICIAN] - Please follow up with your Primary Care Physician in: in one week Please Follow Up With: Mihaela Ybarra MD Disposition: Home Minutes spent on discharge:: 32 Patient Condition:: Stable Medical Necessity - Tobacco Use Smoking Status: Never smoker Tobacco Use: Non-smoker Meaningful Use Info Meaningful Use Diagnoses (Choose all that apply): CHF - CHF GOLDEN/ARB ordered at discharge?: Yes Documented LVEF (%): 65 Code Visit Inpatient E&M: 50196 Disch Hosp
== END 2019-02-08 19:02 | disposition home or self-care (01) | DRG 811 ==
LOC: ED 20:55 → MS3 22:21 → ICU 02-04 21:03 → PCU 02-05 14:36
PROVIDERS: Internal Medicine; Surgery; Admitting Provider Family Medicine; Emergency Provider Emergency Medicine; Family Provider Internal Medicine; PCP Internal Medicine; Visit Provider Internal Medicine
PROC: 0DJD8ZZ Inspection of Lower Intestinal Tract, Via Natural or Artificial Opening Endoscopic (ICD-10-PCS; CPT 45378; principal; 2019-02-04 11:10)
DX: D50.0 Iron deficiency anemia secondary to blood loss (chronic) (principal); J96.02 Acute respiratory failure with hypercapnia; J96.01 Acute respiratory failure with hypoxia; I50.31 Acute diastolic (congestive) heart failure; Z68.42 Body mass index [BMI] 45.0-49.9, adult; K92.2 Gastrointestinal hemorrhage, unspecified; E03.9 Hypothyroidism, unspecified; E66.01 Morbid (severe) obesity due to excess calories; K31.7 Polyp of stomach and duodenum; K64.8 Other hemorrhoids; K64.4 Residual hemorrhoidal skin tags; E11.9 Type 2 diabetes mellitus without complications; Z79.84 Long term (current) use of oral hypoglycemic drugs; E87.6 Hypokalemia; I35.0 Nonrheumatic aortic (valve) stenosis; G47.33 Obstructive sleep apnea (adult) (pediatric); I89.0 Lymphedema, not elsewhere classified; T88.59XA Other complications of anesthesia, initial encounter; T41.1X5A Adverse effect of intravenous anesthetics, initial encounter; I05.0 Rheumatic mitral stenosis; I11.0 Hypertensive heart disease with heart failure; Z80.0 Family history of malignant neoplasm of digestive organs
CPT/HCPCS: 31500; 31720; 36415; 36600; 71045; 71046; 71275; 74018; 80048; 80053; 82140; 82274; 82607; 82803; 82962; 83540; 83550; 83735; 84100; 84439; 84443; 84484; 85014; 85018; 85025; 85027; 86850; 86900; 86920; 88305; 93005; 93306; 94002; 94003; 94640; 94660; 94667; 97110; 97162; 97166; 97530; 97535; 97802; 99251; 99285; J1756; J7030; P9016; Q9957; Q9967; A4216; C8929; G0463; J0330; J1940; J2405

== ENCOUNTER → 2022-06-24 | Outpatient (CLI) | payer MEDICARE, OTHER, SELFPAY ==
--- NOTE | 2022-06-24 08:20 | RAD_ITS ---
STUDY: X-RAY CHEST REASON FOR EXAM: Female, 81 years old. atrial fibrillation/flutter; AV stenosis TECHNIQUE: PA and lateral views of the chest. COMPARISON: 02/07/2019 FINDINGS: The lungs are clear and expanded. Elevated right hemidiaphragm which is unchanged. There is moderate cardiac enlargement. Normal mediastinum and trent. Normal visualized pulmonary arteries. Normal visualized aortic arch and descending thoracic aorta. Normal visualized thoracic spine. Normal visualized ribs, clavicles, and shoulders. There is no demonstrated abnormality of the visualized soft tissue structures of the upper abdomen. RAD/Chest PA and Lateral IMPRESSION: No active disease. Electronically Signed: Jose J Levy MD at 17:03 EDT ,
[2022-06-24 09:12] LABS: Anion Gap 4 (5-15); BUN 21 mg/dL (7-18); BUN/Creat Ratio 21.1 RATIO (10-20); Calcium,Total 9.6 mg/dL (8.5-10.1); Chloride 106 mmol/L (98-107); EST Glomerular Filtration Rate 57 mL/min (>60); Est Glom Filt Rate - Afr Amer 69 mL/min (>60); Glucose 104 mg/dL (74-106); Potassium 4.4 mmol/L (3.5-5.1); Sodium Level 140 mmol/L (136-145)
== END | disposition home or self-care (01) ==
LOC: LAB 08:10
PROVIDERS: PCP Internal Medicine; Referring Provider Internal Medicine Cardiovascular Disease; Visit Provider Internal Medicine Cardiovascular Disease
DX: I48.91 Unspecified atrial fibrillation (principal); I38 Endocarditis, valve unspecified; E78.5 Hyperlipidemia, unspecified; I10 Essential (primary) hypertension
CPT/HCPCS: 36415; 71046; 80048

== ENCOUNTER → 2023-04-16 | Outpatient (CLI) | payer MEDICARE, OTHER, SELFPAY ==
--- NOTE | 2023-04-16 10:59 | ECHOD_ITS ---
Reason For Study: Aortic and mitral stenosis Procedure This was a 2D Doppler, Color Flow transthoracic echocardiogram. Exam performed in department. Left Ventricle Normal size and thickness. The left ventricular ejection fraction is 55 %. At least grade 2 diastolic dysfunction. Right Ventricle Normal right ventricle. Atria The left atrium is severely enlarged. The right atrium is moderately enlarged. Mitral Valve Severe mitral annular calcification. Mild mitral valve stenosis. Mean transmitral valve gradient 3.5 mmHg. Tricuspid Valve Trivial tricuspid valve insufficiency. Right ventricular systolic pressure estimated to be 41 mmHg. Aortic Valve Mild aortic stenosis. Pulmonic Valve The pulmonic valve is not well visualized. Great Vessels Normal sized aortic root. Pericardium/Pleural Trivial pericardial effusion. MMode/2D Measurements & Calculations LVIDd: 4.9 cm IVSd: 1.1 cm LVOT diam: 2.0 cm LVIDs: 3.7 cm LVPWd: 1.1 cm LVOT area: 3.2 cm2 RVDd: 3.4 cm FS: 25.0 % Ao root diam: 3.6 cm LAV(MOD-bp): 85.2 ml LVAd ap4: 19.4 cm2 LAV(MOD-bp) Indexed: 38.8 ml/m2 LVLd ap4: 7.0 cm LAV(MOD-sp2): 82.6 ml EDV(MOD-sp4): 45.5 ml LAV(MOD-sp4): 91.9 ml EDV(sp4-el): 45.7 ml LVAs ap4: 12.1 cm2 LVLs ap4: 6.4 cm ESV(MOD-sp4): 20.3 ml ESV(sp4-el): 19.6 ml EF(MOD-sp4): 55.4 % EF(sp4-el): 57.2 % SV(MOD-sp4): 25.2 ml SV(sp4-el): 26.2 ml LA A4 area: 25.8 cm2 LA dimension(2D): 5.4 cm RA A4 area: 16.1 cm2 TAPSE: 1.6 cm Doppler Measurements & Calculations MV E max pascual: 135.5 cm/sec Lat Peak E' Pascual: 6.4 cm/sec Med Peak E' Pascual: 6.9 cm/sec E/E' lat: 21.1 E/E' med: 19.7 MV V2 max: 149.0 cm/sec MV P1/2t max pascual: 145.7 cm/sec Ao V2 max: 247.7 cm/sec MV max P.9 mmHg MV P1/2t: 80.2 msec Ao max P.7 mmHg MV V2 mean: 84.8 cm/sec Ao V2 mean: 174.3 cm/sec MV mean P.5 mmHg MV dec slope: 532.4 cm/sec2 Ao mean P.6 mmHg MV V2 VTI: 26.2 cm MVA(P1/2t): 2.7 cm2 Ao V2 VTI: 44.2 cm AV (velocity ratio): 0.51 MVA(VTI): 2.8 cm2 MORIAH(I,D): 1.6 cm2 MORIAH(V,D): 1.7 cm2 LV V1 max: 126.9 cm/sec SV(LVOT): 72.5 ml PA V2 max: 105.1 cm/sec LV V1 max P.5 mmHg LV V1 mean P.5 mmHg LV V1 mean: 88.8 cm/sec LV V1 VTI: 22.4 cm TR max pascual: 286.7 cm/sec TR max P.9 mmHg ECHO/Echo Complete Interpretation Summary The left ventricular ejection fraction is 55 %. At least grade 2 diastolic dysfunction The left atrium is severely enlarged. Severe mitral annular calcification. Mild mitral valve stenosis. Mean transmitral valve gradient 3.5 mmHg. Right ventricular systolic pressure estimated to be 41 mmHg. Mild aortic stenosis. Ordering Physician: Monqiue Rivas Referring Physician: Mihaela Ybarra Performed By: Antoinette Gonzalez RDCS
== END | disposition home or self-care (01) ==
LOC: CVS 10:57
PROVIDERS: PCP Internal Medicine; Referring Provider Physician Assistant Medical; Visit Provider Physician Assistant Medical
DX: I35.0 Nonrheumatic aortic (valve) stenosis (principal)
CPT/HCPCS: 93225; 93226; 93306

== ENCOUNTER → 2023-05-01 | Outpatient (CLI) | payer MEDICARE, OTHER, SELFPAY ==
[2023-05-01 10:10] LABS: Absolute Lymphocyte Count 1.76 X10^3/uL (0.83-4.51); Absolute Neutrophil Count 3.6 X10^3/uL (2.0-7.7); Basophil# 0.03 X10^3/uL; Basophil% 0.5 % (0-1); Eosinophil# 0.16 X10^3/uL; Eosinophils% 2.6 % (0-5); Hematocrit 41.1 % (37-47); Hemoglobin 13.4 g/dL (12.0-15.0); Lymphocyte # 1.76 X10^3/ul (0.83-4.51); Mean Corp Hgb Conc 32.6 g/dL (32-36); Mean Corpuscular Hgb 32.2 pg (27.0-32.0); Mean Corpuscular Volume 98.8 fL (81-99); Mean Platelet Vol. 10.5 fl (6.2-12.0); Monocyte# 0.52 X10^3/uL; Monocyte% 8.6 % (0-10); NRBC Flagged by Analyzer 0 % (0-5); Neutrophil # 3.59 X10^3/uL (2.7-7.7); Neutrophil % 59.1 % (47-70); Platelet Count 147 K/mm3 (150-450); RBC Distribution Width CV 12.1 % (11.6-14.6); RBC Distribution Width SD 44.3 fl (35.1-43.9); Red Blood Count 4.16 M/mm3 (4.2-5.4); White Blood Count 6.1 K/mm3 (4.4-11.0)
[2023-05-01 10:27] LABS: Anion Gap 5 (5-15); BUN 21 mg/dL (7-18); BUN/Creat Ratio 19.8 RATIO (10-20); Calcium,Total 9.6 mg/dL (8.5-10.1); Chloride 105 mmol/L (98-107); Creatinine, Serum 1.06 mg/dL (0.55-1.02); EST Glomerular Filtration Rate 53 mL/min (>60); Est Glom Filt Rate - Afr Amer 64 mL/min (>60); Glucose 106 mg/dL (74-106); Potassium 4.3 mmol/L (3.5-5.1); Sodium Level 140 mmol/L (136-145)
[2023-05-01 10:28] LABS: BNP,B-Type NATRIURETIC PEPTIDE 207.8 pg/mL (0-100)
== END | disposition home or self-care (01) ==
LOC: LAB 08:45
PROVIDERS: PCP Internal Medicine; Referring Provider Physician Assistant Medical; Visit Provider Physician Assistant Medical
DX: D64.9 Anemia, unspecified (principal); R06.09 Other forms of dyspnea
CPT/HCPCS: 36415; 80048; 83880; 85025

== ENCOUNTER 2023-07-24 09:12 | Outpatient (RCR) | payer MEDICARE, OTHER, SELFPAY ==
[2023-07-03 12:36] LABS: International Normalized Ratio 1.2; Prothrombin Time (Protime)PT. 14.8 SECONDS (11.7-14.9)
[2023-07-10 12:25] LABS: International Normalized Ratio 1.5; Prothrombin Time (Protime)PT. 18.4 SECONDS (11.7-14.9)
[2023-07-17 12:31] LABS: International Normalized Ratio 1.9; Prothrombin Time (Protime)PT. 21.9 SECONDS (11.7-14.9)
[2023-07-24 11:02] LABS: International Normalized Ratio 2.2; Prothrombin Time (Protime)PT. 24.6 SECONDS (11.7-14.9)
== END 2023-07-24 18:00 | disposition home or self-care (01) ==
LOC: MTLAB 09:12
PROVIDERS: PCP Internal Medicine; Referring Provider Physician Assistant Medical; Visit Provider Physician Assistant Medical
DX: I48.91 Unspecified atrial fibrillation (principal); Z79.01 Long term (current) use of anticoagulants
CPT/HCPCS: 36415; 85610

== ENCOUNTER 2023-08-07 09:53 | Outpatient (RCR) | payer MEDICARE, OTHER, SELFPAY ==
[2023-08-07 12:11] LABS: International Normalized Ratio 2.6; Prothrombin Time (Protime)PT. 27.8 SECONDS (11.7-14.9)
== END 2023-08-28 18:00 | disposition home or self-care (01) ==
LOC: MTLAB 09:53
PROVIDERS: PCP Internal Medicine; Referring Provider Physician Assistant Medical; Visit Provider Physician Assistant Medical
DX: I48.91 Unspecified atrial fibrillation (principal); Z79.01 Long term (current) use of anticoagulants
CPT/HCPCS: 36415; 85610

== ENCOUNTER 2023-09-04 09:39 | Outpatient (RCR) | payer MEDICARE, OTHER, SELFPAY ==
[2023-09-04 12:33] LABS: International Normalized Ratio 2.1; Prothrombin Time (Protime)PT. 24.1 SECONDS (11.7-14.9)
== END 2023-09-28 18:00 | disposition home or self-care (01) ==
LOC: MTLAB 09:39
PROVIDERS: PCP Internal Medicine; Referring Provider Physician Assistant Medical; Visit Provider Physician Assistant Medical
DX: I48.91 Unspecified atrial fibrillation (principal); Z79.01 Long term (current) use of anticoagulants
CPT/HCPCS: 36415; 85610

== ENCOUNTER 2023-10-03 09:44 | Outpatient (RCR) | payer MEDICARE, OTHER, SELFPAY ==
[2023-10-03 12:55] LABS: International Normalized Ratio 2.5
== END 2023-10-03 18:00 | disposition home or self-care (01) ==
LOC: MTLAB 09:44
PROVIDERS: PCP Internal Medicine; Referring Provider Physician Assistant Medical; Visit Provider Physician Assistant Medical
DX: I48.91 Unspecified atrial fibrillation (principal); Z79.01 Long term (current) use of anticoagulants
CPT/HCPCS: 36415; 85610

== ENCOUNTER → 2023-10-24 | Outpatient (CLI) | payer MEDICARE, OTHER, SELFPAY ==
--- NOTE | 2023-10-24 13:25 | MRI_ITS ---
HISTORY: Ataxia, dizziness. TECHNIQUE: Multiplanar and multisequence MR images of the brain were obtained before and after the intravenous administration of 23 cc Clariscan. 418 images. COMPARISON: None. FINDINGS: BRAIN PARENCHYMA: Mild foci of increased T2 FLAIR signal in the bilateral white matter. No enhancing lesion in the brain parenchyma. No abnormal focus of restricted diffusion. No acute intracranial hemorrhage identified. Symmetric internal auditory canals without enhancing lesion. CSF SPACES: Mild generalized volume loss. No significant midline shift or other mass effect.No extra-axial fluid collection. No cerebellopontine angle mass. VASCULAR SYSTEM: Major intracranial flow voids are maintained. PARANASAL SINUSES AND MASTOID AIR CELLS: No significant air fluid levels. ORBITS: Bilateral lens resections. MRI/Brain W/WO Contrast IMPRESSION: No evidence for acute infarct or enhancing intracranial mass. Mild chronic involutional and white matter changes. Electronically Signed: Nidia Goldman MD at 15:34 EST ,
--- OUTSIDE RECORDS SUMMARY | 2023-10-24 13:27 | XMS RPT_ITS | CCD ---
Author Name Unknown Address [address] [place] [address] Organization [facility] Care Team Providers Care Foundry Laborer Coreroom Name Role Phone Amada GONZALEZ, Mihaela Primary Care Provider GANTA, MIHAELA Primary Care Unavailable OLDER, LOLLY Attending Unavailable GANTA, MIHAELA Referring Unavailable GANTA, MIHAELA Primary Care Unavailable GANTA, MIHAELA Attending Unavailable GANTA, MIHAELA Primary Care Unavailable OLDER, LOLLY Attending Unavailable GANTA, MIHAELA Primary Care Unavailable GANTA, MIHAELA Primary Care Unavailable OLDER, LOLLY Referring Unavailable GANTA, MIHAELA Primary Care Unavailable OLDER, LOLLY Attending Unavailable Allergies Allergy Classification Reported Allergen(s) Allergy Type Date of Onset Reaction(s) Facility (16 sources) gabapentin; Translations: [GABAPENTIN] Drug Allergy 4 GI Upset [facility] Work Phone: (2 sources) HMG-CoA reductase inhibitor; Translations: [WGLYFNY-HBU-JEG REDUCTASE INHIBITORS] Drug Intolerance 4 Intolerance [facility] Work Phone: (16 sources) meloxicam; Translations: [MELOXICAM] Drug Allergy 4 Intolerance [facility] (14 sources) HMG-CoA reductase inhibitor Drug Intolerance 4 Intolerance [facility] Work Phone: Medications Current Medications Medication Drug Class(es) Dates Sig (Normalized) Sig (Original) perflutren lipid microspheres 1.3 mL in NaCl (PF) 0.9% 10 mL injection (DEFINITY) (11 sources) Start: 04-08-2022 End: 07-08-2023 perflutren lipid microspheres 1.3 mL in NaCl (PF) 0.9% 10 mL injection (DEFINITY) 125 ml sodium chloride 9 mg/ml prefilled syringe (11 sources) Start: 04-08-2022 End: 07-08-2023 sodium chloride 0.9 % (flush) 10 mL (BD POSIFLUSH) Completed/Discontinued Medications Medication Drug Class(es) Dates Sig (Normalized) Sig (Original) apixaban 5 mg oral tablet (20 sources) Factor Xa Inhibitor Start: 01-02-2022 End: 12-25-2022 take 1 tablet by mouth twice daily apixaban (ELIQUIS) 5 mg tab(s) Take 1 tablet by mouth twice daily. 180 tablet 1 12/25/2022 Active Problems Active Problems Problem Classification Problem Date Documented Da te Episodic/Chronic Anxiety disorders (1 source) Anxiety; Translations: [Anxiety disorder, unspecified] 06-04-2023 Chronic Cardiac dysrhythmias (20 sources) Atrial fibrillation; Translations: [Unspecified atrial fibrillation] Onset: 12-03-2021 12-03-2021 Chronic Cardiac dysrhythmias (3 sources) Palpitations; Translations: [Palpitations] Episodic Chronic kidney disease (16 sources) Chronic kidney disease stage 3; Translations: [CKD (chronic kidney disease) stage 3, GFR 30-59 ml/min] Onset: 07-02-2017 07-02-2017 Chronic Congestive heart failure; nonhypertensive (5 sources) Acute diastolic heart failure; Translations: [Acute diastolic (congestive) heart failure] Onset: 06-04-2023 06-04-2023 Chronic Diabetes mellitus with complications (6 sources) Type 2 diabetes mellitus; Translations: [Type 2 diabetes mellitus with diabetic chronic kidney disease] Onset: 12-03-2021 06-04-2023 Chronic Diabetes mellitus without complication (18 sources) Type 2 diabetes mellitus without complication; Translations: [Type 2 diabetes mellitus without complications] Onset: 12-03-2021 Chronic Diverticulosis and diverticulitis (15 sources) Diverticulosis of colon; Translations: [Diverticulosis of large intestine without perforation or abscess without bleeding] 01-02-2006 Chronic Essential hypertension (18 sources) Benign essential hypertension; Translations: [Essential (primary) hypertension] 10-23-2005 Chronic Heart valve disorders (8 sources) Aortic valve stenosis; Translations: [Nonrheumatic aortic (valve) stenosis] Onset: 09-01-2022 Chronic Osteoarthritis (15 sources) Degenerative joint disease involving multiple joints; Translations: [Polyosteoarthritis, unspecified] Onset: 03-20-2007 03-20-2007 Chronic Other ear and sense organ disorders (1 source) Decreased hearing ; Translations: [Unspecified hearing loss, unspecified ear] 06-04-2023 Chronic Other ear and sense organ disorders (1 source) Hearing loss of right ear; Translations: [Unspecified hearing loss, right ear] 08-28-2023 Chronic Other nervous system disorders (1 source) Other chronic pain; Translations: [Chronic midline low back pain with right-sided sciatica] Onset: 07-19-2014 Chronic Other non-traumatic joint disorders (1 source) Pain in right hip joint; Translations: [Pain in right hip] 07-17-2023 Episodic Other non-traumatic joint disorders (1 source) Pain in right hip; Translations: [Right hip pain] Onset: 07-17-2023 Episodic Other nutritional; endocrine; and metabolic disorders (15 sources) Body mass index 40+ - severely obese; Translations: [Body mass index (BMI) 40.0-44.9, adult] Onset: 01-18-2015 01-18-2015 Chronic Other skin disorders (1 source) Lesion of face; Translations: [Disorder of the skin and subcutaneous tissue, unspecified] Episodic Thyroid disorders (20 sources) 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; Translations: [Other specified hypothyroidism] Onset: 01-12-2016 Chronic Unclassified (1 source) Permanent atrial fibrillation; Translations: [Permanent atrial fibrillation (HCC)] Onset: 12-03-2021 Past or Other Problems Problem Classification Problem Date Documented Date Episodic/Chronic Allergic reactions (2 sources) Allergic condition; Translations: [Allergy, unspecified, initial encounter] Onset: 03-03-2023 Episodic Conditions associated with dizziness or vertigo (3 sources) Dizziness; Translations: [Dizziness and giddiness] Onset: 03-03-2023 Episodic Nutritional deficiencies (2 sources) Cobalamin deficiency; Translations: [Deficiency of other specified B group vitamins] Onset: 03-03-2023 Episodic Other screening for suspected conditions (not mental disorders or infectious disease) (15 sources) Mammography abnormal; Translations: [Other abnormal and inconclusive findings on diagnostic imaging of breast] Onset: 08-21-2015 08-21-2015 Episodic Pancreatic disorders (not diabetes) (15 sources) Cyst and pseudocyst of pancreas; Translations: [Cyst of pancreas] Onset: 03-07-2009 03-07-2009 Episodic Residual codes; unclassified (15 sources) Family history of malignant neoplasm of gastrointestinal tract; Translations: [Family history of malignant neoplasm of digestive organs] Onset: 10-24-2005 10-24-2005 Episodic Spondylosis; intervertebral disc disorders; other back problems (19 sources) Backache; Translations: [Dorsalgia, unspecified] Onset: 07-19-2014 07-19-2014 Episodic Results Test Name Value Interpretation Reference Range Facil ity Vital Signs Date Time Vital Sign Value Performing Clinician Faci lity 08-28-2023 13:10-0500 Body weight 116.12 kg Lolly Older ACCOUNTANT MACHINE PROCESSING.WINDING LATHE OPERATOR Work Phone: [facility] 08-28-2023 13:10-0500 Diastolic blood pressure 96 mm[Hg] Lolly Older ACCOUNTANT MACHINE PROCESSING.WINDING LATHE OPERATOR Work Phone: [facility] 08-28-2023 13:10-0500 Heart rate 110 /min Lolly Older ACCOUNTANT MACHINE PROCESSING.WINDING LATHE OPERATOR Work Phone: [facility] 08-28-2023 13:10-0500 Respiratory rate 16 /min Lolly Older ACCOUNTANT MACHINE PROCESSING.WINDING LATHE OPERATOR Work Phone: [facility] 08-28-2023 13:10-0500 SaO2% (BldA) [Mass fraction] 96 % Lolly Older ACCOUNTANT MACHINE PROCESSING.WINDING LATHE OPERATOR Work Phone: [facility] 08-28-2023 13:10-0500 Systolic blood pressure 140 mm[Hg] Lolly Older ACCOUNTANT MACHINE PROCESSING.WINDING LATHE OPERATOR Work Phone: [facility] 06-04-2023 12:14-0400 Body weight 116.57 kg Lolly Older ACCOUNTANT MACHINE PROCESSING.WINDING LATHE OPERATOR Work Phone: [facility] 06-04-2023 12:14-0400 Diastolic blood pressure 84 mm[Hg] Lolly Older ACCOUNTANT MACHINE PROCESSING.WINDING LATHE OPERATOR Work Phone: [facility] 06-04-2023 12:14-0400 Heart rate 102 /min Lolly Older ACCOUNTANT MACHINE PROCESSING.WINDING LATHE OPERATOR Work Phone: [facility] 06-04-2023 12:14-0400 Respiratory rate 16 /min Lolly Older ACCOUNTANT MACHINE PROCESSING.WINDING LATHE OPERATOR Work Phone: [facility] 06-04-2023 12:14-0400 SaO2% (BldA) [Mass fraction] 96 % Lolly Older ACCOUNTANT MACHINE PROCESSING.WINDING LATHE OPERATOR Work Phone: [facility] 06-04-2023 12:14-0400 Systolic blood pressure 138 mm[Hg] Lolly Older ACCOUNTANT MACHINE PROCESSING.WINDING LATHE OPERATOR Work Phone: [facility] 03-03-2023 11:19-0400 Body height 161.3 cm Mihaela Ybarra MD Work Phone: [facility] 03-03-2023 11:19-0400 Body temperature 98.01 [degF] Mihaela Ybarra MD Work Phone: [facility] 03-03-2023 11:19-0400 Body weight 116.57 kg Mihaela Ybarra MD Work Phone: [facility] 03-03-2023 11:19-0400 Diastolic blood pressure 80 mm[Hg] Mihaela Ybarra MD Work Phone: [facility] 03-03-2023 11:19-0400 Heart rate 98 /min Mihaela Ybarra MD Work Phone: [facility] 03-03-2023 11:19-0400 Respiratory rate 14 /min Mihaela Ybarra MD Work Phone: [facility] 03-03-2023 11:19-0400 SaO2% (BldA) [Mass fraction] 97 % Mihaela Ybarra MD Work Phone: [facility] 03-03-2023 11:19-0400 Systolic blood pressure 124 mm[Hg] Mihaela Ybarra MD Work Phone: [facility] 07-26-2022 11:22-0400 Body height 161.3 cm Mihaela Ybarra MD Work Phone: [facility] 07-26-2022 11:22-0400 Body temperature 97.2 [degF] Mihaela Ybarra MD Work Phone: [facility] 07-26-2022 11:22-0400 Body weight 116.57 kg Mihaela Ybarra MD Work Phone: [facility] 07-26-2022 11:22-0400 Diastolic blood pressure 70 mm[Hg] Mihaela Ybarra MD Work Phone: [facility] 07-26-2022 11:22-0400 Heart rate 82 /min Mihaela Ybarra MD Work Phone: [facility] 07-26-2022 11:22-0400 Respiratory rate 16 /min Mihaela Ybarra MD Work Phone: [facility] 07-26-2022 11:22-0400 SaO2% (BldA) [Mass fraction] 98 % Mihaela Ybarra MD Work Phone: [facility] 07-26-2022 11:22-0400 Systolic blood pressure 132 mm[Hg] Mihaela Ybarra MD Work Phone: [facility] 04-24-2022 10:07-0400 Body weight 114.31 kg Lolly Older ACCOUNTANT MACHINE PROCESSING.WINDING LATHE OPERATOR Work Phone: [facility] 04-24-2022 10:07-0400 Diastolic blood pressure 84 mm[Hg] Lolly Older ACCOUNTANT MACHINE PROCESSING.WINDING LATHE OPERATOR Work Phone: [facility] 04-24-2022 10:07-0400 Heart rate 80 /min Lolly Older ACCOUNTANT MACHINE PROCESSING.WINDING LATHE OPERATOR Work Phone: [facility] 04-24-2022 10:07-0400 Respiratory rate 16 /min Lolly Older ACCOUNTANT MACHINE PROCESSING.WINDING LATHE OPERATOR Work Phone: [facility] 04-24-2022 10:07-0400 Systolic blood pressure 132 mm[Hg] Lolly Older ACCOUNTANT MACHINE PROCESSING.WINDING LATHE OPERATOR Work Phone: [facility] 04-08-2022 14:53-0400 Body weight 113.85 kg Lolly Older ACCOUNTANT MACHINE PROCESSING.WINDING LATHE OPERATOR Work Phone: [facility] 04-08-2022 14:53-0400 Diastolic blood pressure 78 mm[Hg] Lolly Older ACCOUNTANT MACHINE PROCESSING.WINDING LATHE OPERATOR Work Phone: [facility] 04-08-2022 14:53-0400 Heart rate 88 /min Lolly Older ACCOUNTANT MACHINE PROCESSING.WINDING LATHE OPERATOR Work Phone: [facility] 04-08-2022 14:53-0400 Respiratory rate 16 /min Lolly Older ACCOUNTANT MACHINE PROCESSING.WINDING LATHE OPERATOR Work Phone: [facility] 04-08-2022 14:53-0400 Systolic blood pressure 122 mm[Hg] Lolly Older ACCOUNTANT MACHINE PROCESSING.WINDING LATHE OPERATOR Work Phone: [facility] Encounters Encounter Date Encounter Type Care Provider Facility Start: 08-28-2023 End: 08-28-2023 ambulatory LOLLY Facility:[facility] Start: 08-28-2023 End: 08-28-2023 Patient encounter procedure Lolly ACCOUNTANT MACHINE PROCESSING.WINDING LATHE OPERATOR Work Phone: [facility] Procedures Date Procedure Procedure Detail Performing Clinician Start: 07-17-2023 Radex hip unilateral with pelvis 2-3 views Lolly ACCOUNTANT MACHINE PROCESSING.WINDING LATHE OPERATOR Work Phone: Plan of Treatment Date Care Activity Detail Author Start: 08-28-2024 Covid-19 Vaccine ( season) Covid-19 Vaccine () [facility] Immunizations Immunization Date Immunization Notes Care Provider Niles rodriguez 08-12-2021 COVID-19 vaccine, ag e 12+ yr (PFIZER-BIONTECH - PURPLE TOP) Mihaela Ybarra MD Work Phone: [facility] 11-28-2020 COVID-19 vaccine, ag e 12+ yr (PFIZER-BIONTECH - PURPLE TOP) Miahela Ybarra MD Work Phone: [facility] 11-10-2020 COVID-19 vaccine, ag e 12+ yr (PFIZER-BIONTECH - PURPLE TOP) Mihaela Ybarra MD Work Phone: [facility] 07-15-2018 influenza virus vacc ine, unspecified formulation Lolly Zamarripa ACCOUNTANT MACHINE PROCESSING.WINDING LATHE OPERATOR Work Phone: [facility] 09-25-2016 pneumococcal conjuga te vaccine, 13 valent Mihaela Ybarra MD Work Phone: [facility] Work Phone: 07-13-2015 influenza, high dose seasonal, preservative-free Mihaela Ybarra MD Work Phone: [facility] 07-19-2014 influenza, seasonal, injectable Mihaela Ybarra MD Work Phone: [facility] 07-19-2014 pneumococcal polysaccharide vaccine, 23 valent Mihaela Ybarra MD Work Phone: [facility] 10-15-2012 influenza virus vacc ine, unspecified formulation Mihaela Ybarra MD Work Phone: [facility] 07-16-2010 influenza virus vacc ine, unspecified formulation Mihaela Ybarra MD Work Phone: [facility] 08-23-2008 influenza virus vacc ine, unspecified formulation Mihaela Ybarra MD Work Phone: [facility] Work Phone: 09-11-2007 influenza virus vacc ine, unspecified formulation Mihaela Ybarra MD Work Phone: [facility] 09-09-2006 influenza virus vacc ine, unspecified formulation Mihaela Ybarra MD Work Phone: [facility] Work Phone: 10-24-2005 tetanus and diphther ia toxoids, adsorbed, preservative free, for adult use (2 Lf of tetanus toxoid and 2 Lf of diphtheria toxoid) Mihaela Ybarra MD Work Phone: [facility] 05-30-2001 pneumococcal polysaccharide vaccine, 23 valent Mihaela Ybarra MD Work Phone: [facility] Work Phone: Payers Date Payer Category Payer Medicare [id number] 2015 Private Health Insurance HUMANA HUMANA MEDICARE SUPPLEMENT [id number] 2015-Present [phone] [address] [address] [place] [address] Indemnity [id number] 2015 Private Health Insurance HUMANA HUMANA MEDICARE SUPPLEMENT [id number] 2015-Present [phone] [address] [address] [place] [address] Indemnity [id number] 2005 Medicare MEDICARE MEDICAR E A AND B [id number] 2005-Present [phone] [place] [address] Medicare [id number] 2005 Medicare MEDICARE MEDICAR E A AND B [id number] 2005-Present [phone] [place] [address] Medicare [id number] 2005 Medicare [id number] Social History Date Type Detail Facility Start: 08-21-2015 End: 07-26-2022 Tobacco smoking status NHIS Ex-smoker [facility] Start: 08-21-2005 End: 08-05-2006 History of tobacco use Current smoker [facility] Start: 08-21-2005 End: 08-05-2006 History of tobacco use Cigarette Smoker [facility] Start: 12-10-2021 End: 08-28-2023 Alcohol intake Current non-drinker of alcohol (finding) [facility] Start: 1940 Sex Assigned At Not on file [facility] Start: 04-09-2022 End: 04-25-2022 Exposure to SARS-CoV-2 (event) Unable to assess [facility] Start: 08-21-2015 End: 03-03-2023 Cigarettes smoked current (pack per day) - Reported 1 [facility] Work Phone: Start: 08-21-2015 End: 07-26-2022 Tobacco use and exposure Smokeless tobacco non-user [facility] Start: 07-16-2022 End: 07-26-2022 Exposure to SARS-CoV-2 (event) Not sure [facility] Work Phone: Start: 03-03-2023 End: 08-28-2023 Tobacco use panel [facility] Work Phone: Adult Depression Screening Assessment 0 [facility] Work Phone: Medical Equipment Procedure Code Equipment Code Equipment Origin al Text Equipment Identifier Dates Test blood sugar (s) 2 times daily. Dx: Type 2 DM - Uncontrolled E11.65 Insulin: No Start: 12-10-2021 Clinical Notes 01-02-2017 to 08-28-2023 Patient InstructionsLolly Zamarripa APRN.WINDING LATHE OPERATOR - 08/28/2023 1:23 PM EST Note Date & Type Note Facility 08-28-2023 Note HNO ID: [id number] Author: Lolly Zamarripa APRN.WINDING LATHE OPERATOR Service: ? Author Type: Nurse Practitioner Type: Progress Notes Filed: 08/28/2023 3:36 PM Note Text: CC: Patient presents with: Follow Up HPI M Tyar Grady is a 82 year old female who presents today for follow up on duloxetine for pain. Chronic pain to back and legs. Was started on duloxetine 6 weeks ago but has not noticed a difference in pain even after increasing the dose. Does not want to do therapy as this is too painful. Was consulted previously to pain management but has not scheduled with them yet. Ongoing intermittent diarrhea since starting metformin years ago and has always taken immodium for this. Never brought it up so just dealt with it. DIABETES MELLITUS: Ms. Grady denies excessive thirst or increased frequency of urination, chest pain or dyspnea , numbness, tingling or pain in extremities, new or unusual visual symptoms, low sugar/hypoglycemic reactions, weight loss/gain, and lightheadedness/dizziness. Follows a diabetic diet most of the time. She reports checking her glucose on a infrequent to not at all basis. Patient's last HgA1C was Hemoglobin A1C (%) Date Value 03/03/2023 6.2 07/26/2022 6.2 02/11/2019 6.0 11/27/2018 6.4 Hemoglobin A1C (POCT) (%) Date Value 09/10/2019 6.1 ) Has had an intermittent sensation and difficulty hearing for the past few months to right ear. The decreased hearing is present today. Denies abnormal dizziness outside of chronic vertigo, sinus congestion, fever, chills, cough, or any other new concerns. REVIEW OF SYSTEMS See HPI PAST MEDICAL HISTORY Diagnosis Date Diabetes mellitus without mention of complication Diabetes mellitus Diverticulosis of colon (without mention of hemorrhage) Essential hypertension, benign Family history of malignant neoplasm of gastrointestinal tract family history of colon cancer Internal hemorrhoids without mention of complication PMH - PAST MEDICAL HISTORY OF umbilical hernia Unspecified hypothyroidism PAST SURGICAL HISTORY Procedure Laterality Date ARTHRP KNE CONDYLEANDPLATU MEDIALANDLAT COMPARTMENTS 11/2007 right knee done at [facility] by COLONOSCOPY FLX DX W/COLLJ SPEC WHEN PFRMD 01/02/06 COLONOSCOPY FLX DX W/COLLJ SPEC WHEN PFRMD 2005 Colonoscopy COLONOSCOPY FLX DX W/COLLJ SPEC WHEN PFRMD 05/27/16 Colonoscopy DILATION AND CURETTAGE DXAND/THER NONOBSTETRIC Dilation AND curettage EXPLORATORY LAPAROTOMY CELIOTOMY W/WO BIOPSY SPX 60's Laparotomy, exp r/t GB INJECT LUMB/SACR FORAMEN EPI SGL 06/13 LAPAROSCOPY SURG CHOLECYSTECTOMY 08/05/06 Cholecystectomy, lap LAPS ABD PRTMANDOMENTUM DX W/WO SPEC BR/WA SPX Laparoscopy LIG/TRNSXJ FLP TUBE ABDL/VAG APPR UNI/BI 70's Tubal ligation RMVL LENS MATERIAL PHACOFRAGMENTATION ASPIR 09/19/2011 Cataract Extraction Right Eye - [facility] - Dr. Cain RMVL LENS MATERIAL PHACOFRAGMENTATION ASPIR 10/17/2011 Cataract Extraction Left Eye - [facility] RPR UMBILICAL HRNA 5 YRS/> REDUCIBLE 08/05/06 Hernia repair, umbilical >5yr THYROID LEFT FINE NEEDLE ASPIRATION 12/28/08 U/S bilateral thyroid fna THYROID RIGHT FINE NEEDLE ASPIRATION 12/28/08 U/S bilateral thyroid fna TONSILLECTOMY PRIMARY/SECONDARY Tonsillectomy ALLERGIES Meloxicam, Neurontin [Gabapentin], and Rsoyxve-Wuz-Mow Reductase Inhibitors MEDICATIONS DULoxetine (CYMBALTA) 40 mg cpDR Take 1 capsule by mouth once daily. tiZANidine (ZANAFLEX) 4 mg tablet Take 1 tablet by mouth every 8 hours as needed (muscle spasms). metoprolol succinate ER (TOPROL XL) 50 mg 24 hr tablet Take 1 tablet by mouth once daily. traMADol (ULTRAM) 50 mg tablet Take 1 tablet by mouth twice daily as needed for pain. meclizine (ANTIVERT) 25 mg tab Take 1 tablet by mouth every 6 hours as needed (dizziness). montelukast (SINGULAIR) 10 mg tablet Take 1 tablet by mouth daily at bedtime. metFORMIN (GLUCOPHAGE) 500 mg tablet Take 2 tablets by mouth twice daily. levothyroxine (SYNTHROID) 150 mcg tablet Take 1 tablet by mouth once daily. on an empty stomach for thyroid furosemide (LASIX) 40 mg tablet Take 1 tablet by mouth once daily. apixaban (ELIQUIS) 5 mg tab(s) Take 1 tablet by mouth twice daily. blood sugar diagnostic (BLOOD GLUCOSE TEST) test strip Test blood sugar(s) 2 times daily. Dx: Type 2 DM - Uncontrolled E11.65 Insulin: No nystatin (MYCOSTATIN) ointment Apply 1 application to affected area twice daily. MULTI-VITAMIN ORAL Take by mouth. Lancets lancets Test blood sugar(s) 2 times daily. Dx: Type 2 DM - Uncontrolled E11.65 Insulin: No FAMILY HISTORY Problem Relation Age of Onset Colon Cancer Mother Stroke Mother None Father None Brother None Brother Hypertension Mother Social History Tobacco Use Smoking status: Former Packs/day: 1.00 Years: 10.00 Additional pack years: 0.00 Total pack years: 10.00 Types: Cigarettes Start date: 08/21/2005 Quit date: 08/05/2006 (more content not included)... [facility] 08-28-2023 Instructions Lolly Zamarripa APRN.CNP - 08/28/2023 1:32 PM EST Wean off duloxetine by taking every other day for 1 week then every 3rd day then stop. Schedule with pain management Stop current metformin. Start New extended release metformin 1 tablet once a day. documented in this encounter [facility] 08-28-2023 History of Present illness Narrative CC: Patient presents with: Follow Up HPI Eh Tyra Grady is a 82 year old female who presents today for follow up on duloxetine for pain. Chronic pain to back and legs. Was started on duloxetine 6 weeks ago but has not noticed a difference in pain even after increasing the dose. Does not want to do therapy as this is too painful. Was consulted previously to pain management but has not scheduled with them yet. Ongoing intermittent diarrhea since starting metformin years ago and has always taken immodium for this. Never brought it up so just dealt with it. DIABETES MELLITUS: Ms. Grady denies excessive thirst or increased frequency of urination, chest pain or dyspnea , numbness, tingling or pain in extremities, new or unusual visual symptoms, low sugar/hypoglycemic reactions, weight loss/gain, and lightheadedness/dizziness. Follows a diabetic diet most of the time. She reports checking her glucose on a infrequent to not at all basis. Patient's last HgA1C was Hemoglobin A1C (%) Date Value 03/03/2023 6.2 07/26/2022 6.2 02/11/2019 6.0 11/27/2018 6.4 Hemoglobin A1C (POCT) (%) Date Value 09/10/2019 6.1 ) Has had an intermittent sensation and difficulty hearing for the past few months to right ear. The decreased hearing is present today. Denies abnormal dizziness outside of chronic vertigo, sinus congestion, fever, chills, cough, or any other new concerns. REVIEW OF SYSTEMS See HPI PAST MEDICAL HISTORY Diagnosis Date Diabetes mellitus without mention of complication Diabetes mellitus Diverticulosis of colon (without mention of hemorrhage) Essential hypertension, benign Family history of malignant neoplasm of gastrointestinal tract family history of colon cancer Internal hemorrhoids without mention of complication PMH - PAST MEDICAL HISTORY OF umbilical hernia Unspecified hypothyroidism PAST SURGICAL HISTORY Procedure Laterality Date ARTHRP KNE CONDYLE&PLATU MEDIAL&LAT COMPARTMENTS 11/2007 right knee done at [facility] by COLONOSCOPY FLX DX W/COLLJ SPEC WHEN PFRMD 01/02/06 COLONOSCOPY FLX DX W/COLLJ SPEC WHEN PFRMD 2005 Colonoscopy COLONOSCOPY FLX DX W/COLLJ SPEC WHEN PFRMD 05/27/16 Colonoscopy DILATION & CURETTAGE DX&/THER NONOBSTETRIC Dilation & curettage EXPLORATORY LAPAROTOMY CELIOTOMY W/WO BIOPSY SPX 60's Laparotomy, exp r/t GB INJECT LUMB/SACR FORAMEN EPI SGL 06/13 LAPAROSCOPY SURG CHOLECYSTECTOMY 08/05/06 Cholecystectomy, lap LAPS ABD PRTM&OMENTUM DX W/WO SPEC BR/WA SPX Laparoscopy LIG/TRNSXJ FLP TUBE ABDL/VAG APPR UNI/BI 70's Tubal ligation RMVL LENS MATERIAL PHACOFRAGMENTATION ASPIR 09/19/2011 Cataract Extraction Right Eye - [facility] - Dr. Cain RMVL LENS MATERIAL PHACOFRAGMENTATION ASPIR 10/17/2011 Cataract Extraction Left Eye - [facility] RPR UMBILICAL HRNA 5 YRS/> REDUCIBLE 08/05/06 Hernia repair, umbilical >5yr THYROID LEFT FINE NEEDLE ASPIRATION 12/28/08 U/S bilateral thyroid fna THYROID RIGHT FINE NEEDLE ASPIRATION 12/28/08 U/S bilateral thyroid fna TONSILLECTOMY PRIMARY/SECONDARY <AGE 12 Tonsillectomy ALLERGIES Meloxicam, Neurontin [Gabapentin], and Tozawsj-Avn-Jsv Reductase Inhibitors MEDICATIONS DULoxetine (CYMBALTA) 40 mg cpDR Take 1 capsule by mouth once daily. tiZANidine (ZANAFLEX) 4 mg tablet Take 1 tablet by mouth every 8 hours as needed (muscle spasms). metoprolol succinate ER (TOPROL XL) 50 mg 24 hr tablet Take 1 tablet by mouth once daily. traMADol (ULTRAM) 50 mg tablet Take 1 tablet by mouth twice daily as needed for pain. meclizine (ANTIVERT) 25 mg tab Take 1 tablet by mouth every 6 hours as needed (dizziness). montelukast (SINGULAIR) 10 mg tablet Take 1 tablet by mouth daily at bedtime. metFORMIN (GLUCOPHAGE) 500 mg tablet Take 2 tablets by mouth twice daily. levothyroxine (SYNTHROID) 150 mcg tablet Take 1 tablet by mouth once daily. on an empty stomach for thyroid furosemide (LASIX) 40 mg tablet Take 1 tablet by mouth once daily. apixaban (ELIQUIS) 5 mg tab(s) Take 1 tablet by mouth twice daily. blood sugar diagnostic (BLOOD GLUCOSE TEST) test strip Test blood sugar(s) 2 times daily. Dx: Type 2 DM - Uncontrolled E11.65 Insulin: No nystatin (MYCOSTATIN) ointment Apply 1 application to affected area twice daily. MULTI-VITAMIN ORAL Take by mouth. Lancets lancets Test blood sugar(s) 2 times daily. Dx: Type 2 DM - Uncontrolled E11.65 Insulin: No FAMILY HISTORY Problem Relation Age of Onset Colon Cancer Mother Stroke Mother None Father None Brother None Brother Hypertension Mother Social History Tobacco Use Smoking status: Former Packs/day: 1.00 Years: 10.00 Additional pack years: 0.00 Total pack years: 10.00 Types: Cigarettes Start date: 08/21/2005 Quit date: 08/05/2006 Years since quittin.0 Smokeless tobacco: Never Substance Use Topics Alcohol use: No Drug use: No PHYSICAL EXAM BP 140/96 Pulse 110 Resp 16 Wt 116.1 kg (256 lb) SpO2 96% BMI 44.64 kg/m General Appearance: well appearing, in no acute distress, alert Pysch: mood and affect broad and appropriate Skin: Skin color, texture, turgor normal for age; Eyes: conjunctiva pink and moist, no icterus, sclera white, non-injected Ears:External ears normal, canals clear Lungs: Lungs clear to auscultation. No wheezing, rhonchi, rales. Heart: RRR without murmur, gallop, or rubs. No ectopy Health maintenance reviewed with patient: Hepatitis B Vaccine(1 of 3 - Risk 3-dose series) Never done RSV Vaccine(1 - 1-dose 60+ series) Never done Diabetic Foot Exam due on 07/19/2015 Advance Directive Discussion Never done Depression Assessment due on 09/29/2022 Urine Albumin:Creatinine Ratio due on 12/03/2022 Covid-19 Vaccine( - season) due on 05/30/2023 Influenza Vaccine(1) due on 03/28/2024 DTaP,Tdap,Td Vaccine(1 - Tdap) due on 06/04/2024 Shingrix Vaccine(1 of 2) due on 06/04/2024 HbA1C due on 09/02/2023 LDL Cholesterol due on 03/03/2024 Dilated Retinal Exam due on 05/22/2024 Bone Density Screening Completed Pneumococcal Vaccine: 65+ Completed Colorectal Cancer Screening Discontinued DATA REVIEWED: Most recent labs and imaging results. ASSESSMENT/PLAN: 1. Hearing loss of right ear, unspecified hearing loss type - ICD9: 389.9, ICD10: H91.91 (primary diagnosis) - assessment normal - CONSULT TO ENT 2. Type 2 diabetes mellitus with stage 3a chronic kidney disease, without long-term current use of insulin (HCC) - ICD9: 250.40, 585.3, ICD10: E11.22, N18.31 - Controlled but has had mcfp side effects. Decreasing metformin and switching to extended release to hopefully stop the diarrhea - follow up in 4 weeks. - Blood glucose monitoring on a once daily schedule - Counseled on healthy diet and regular exercise - Discussed need for and benefit of weight loss. BMI 44.64 kg/(m^2) - eGFR: 52 Stable - Counseled on avoiding NSAIDs, adequate hydration - ALBUMIN/CREAT RATIO RND UR 3. Chronic low back pain with right-sided sciatica, unspecified back pain laterality - ICD9: 724.2, 724.3, 338.29, ICD10: M54.41, G89.29 - stop duloxetine as this is not helping. Wean off as discussed - schedule with pain management as previously ordered. Prescription instructions reviewed with patient as applicable. Potential red flag symptoms discussed with the patient. Reviewed appropriate action plan to take if red flag symptoms occur. Patient agreeable to treatment plan. Lolly Zamarripa APRN.CNP documented in this encounter [facility] documented in this encounter [facility]10-26-2023 Miscellaneous Notes* Telephone Encounter - Corrie Roth Ma - 07/24/2023 3:28 PM EDT Patient notified. * Telephone Encounter - Lolly Zamarripa APRN.CNP - 07/24/2023 3:09 PM EDT Please let patient know hip xray shows mild arthritis but back xray shows worsening degenerative changes. She needs to continue with plan for pain mgmt and PT. Thank you Lolly Zamarripa APRN.CNP [facility] NoteHNO ID: [id number] Author: Damaris Mason RT(R) Service: Radiology Author Type: Technologist Type: Progress Notes Filed: 07/17/2023 2:09 PM Note Text: Radiology Service Progress Note PATIENT NAME: Eh Grady DATE OF SERVICE: July 17, 2023 TIME: 1:48 PM PATIENT IDENTITY VERIFICATION COMPLETED USING TWO (2) IDENTIFIERS: Name and Date of confirmed by patient verbally. FALL SCREENING: Has the patient had 2 falls in the last year or 1 fall with injury or currently using an Ambulatory Assistive Device (Walker, Cane, Wheelchair, Crutches, etc.)? Yes, Patient High Risk for Falls What interventions were put in place to prevent falls during this visit? Offered Assistance with Transfers/Clothing and Instructed Patient to Remain Seated (Not on Exam Table) Until Exam PATIENT GENDER DATA: Female. status: : No status: NO. PATIENT RELEVANT IMPLANT DATA REVIEWED: Not Applicable RADIOLOGY DEPARTMENT: General X-ray: Exam(s) Completed: Spine X-Ray(s): Lumbar AP / LAT / L5-S1 Pelvis X-Ray: Pelvis with Hip Right PERIPHERAL IV DATA: Not applicable SIGNED BY: RT Chandni(R) July 17, 2023 1:48 [facility]10-19-2023 History of Present illness Narrative* Damaris Mason RT(R) - 07/17/2023 1:50 PM EDT Radiology Service Progress Note PATIENT NAME: Eh Grady DATE OF SERVICE: July 17, 2023 TIME: 1:48 PM PATIENT IDENTITY VERIFICATION COMPLETED USING TWO (2) IDENTIFIERS: Name and Date of confirmedby patient verbally. FALL SCREENING: Has the patient had 2 falls in the last year or 1 fall with injury or currently using an Ambulatory Assistive Device (Walker, Cane, Wheelchair, Crutches, etc.)? Yes, Patient High Riskfor Falls What interventions were put in place to prevent falls during this visit? Offered Assistance with Transfers/Clothing and Instructed Patient to Remain Seated (Not on Exam Table) Until Exam PATIENT GENDER DATA: Female. status: : No status: NO. PATIENT RELEVANT IMPLANT DATA REVIEWED: Not Applicable RADIOLOGY DEPARTMENT: General X-ray: Exam(s) Completed: Spine X-Ray(s): Lumbar AP / LAT / L5-S1 Pelvis X-Ray: Pelvis with Hip Right PERIPHERAL IV DATA: Not applicable SIGNED BY: RT Chandni(R) July 17, 2023 1:48 PM [facility] NoteHNO ID: [id number] Author: Lolly Zamarripa APRN.WINDING LATHE OPERATOR Service: ? Author Type: Nurse Practitioner Type: Progress Notes Filed: 07/22/2023 9:05 AM Note Text: CC: Patient presents with: Recheck: Follow up, back hip pain HPI M Tyra Grady is a 82 year old female who presents today for chronic low back pain with sciatica. Only time she does not have pain is when she is laying on her right side. As soon as she moves the pain will start. Any type of pressure to her right thigh/hip will improve the pain while the pressure is in place. When standing pain is to middle lower back and radiates into right hip and sometimes down RLE. Tramadol doesn't help pain either. Saw pain mgmt at Dr. Arevalo over a couple years ago stopped as she felt this did not help and tried PT 6-7 years ago without improvement as well. Pain has not worsened but just can't take it anymore and feels she can't do anything because of the pain. Was started on duloxetine for pain and anxiety 6 weeks ago. No improvement in pain or anxiety but is tolerating medicine well. Alcohol use: does not drink any alcohol Drug use: No Appetite: good Suicidal Thoughts: No suicidal ideation, intent or plan Support: Comes from multiple sources including Denies any injury fall, fever, chills, abdominal pain, loss of bowel/bladder control, shortness of breath, chest pressure, new weakness, or numbness. REVIEW OF SYSTEMS See HPI PAST MEDICAL HISTORY Diagnosis Date Diabetes mellitus without mention of complication Diabetes mellitus Diverticulosis of colon (without mention of hemorrhage) Essential hypertension, benign Family history of malignant neoplasm of gastrointestinal tract family history of colon cancer Internal hemorrhoids without mention of complication PMH - PAST MEDICAL HISTORY OF umbilical hernia Unspecified hypothyroidism PAST SURGICAL HISTORY Procedure Laterality Date ARTHRP KNE CONDYLEANDPLATU MEDIALANDLAT COMPARTMENTS 11/2007 right knee done at [facility] by COLONOSCOPY FLX DX W/COLLJ SPEC WHEN PFRMD 01/02/06 COLONOSCOPY FLX DX W/COLLJ SPEC WHEN PFRMD 2005 Colonoscopy COLONOSCOPY FLX DX W/COLLJ SPEC WHEN PFRMD 05/27/16 Colonoscopy DILATION AND CURETTAGE DXAND/THER NONOBSTETRIC Dilation AND curettage EXPLORATORY LAPAROTOMY CELIOTOMY W/WO BIOPSY SPX 60's Laparotomy, exp r/t GB INJECT LUMB/SACR FORAMEN EPI SGL 06/13 LAPAROSCOPY SURG CHOLECYSTECTOMY 08/05/06 Cholecystectomy, lap LAPS ABD PRTMANDOMENTUM DX W/WO SPEC BR/WA SPX Laparoscopy LIG/TRNSXJ FLP TUBE ABDL/VAG APPR UNI/BI 70's Tubal ligation RMVL LENS MATERIAL PHACOFRAGMENTATION ASPIR 09/19/2011 Cataract Extraction Right Eye - [facility] - Dr. Cani RMVL LENS MATERIAL PHACOFRAGMENTATION ASPIR 10/17/2011 Cataract Extraction Left Eye - [facility] RPR UMBILICAL HRNA 5 YRS/> REDUCIBLE 08/05/06 Hernia repair, umbilical >5yr THYROID LEFT FINE NEEDLE ASPIRATION 12/28/08 U/S bilateral thyroid fna THYROID RIGHT FINE NEEDLE ASPIRATION 12/28/08 U/S bilateral thyroid fna TONSILLECTOMY PRIMARY/SECONDARY Tonsillectomy ALLERGIES Meloxicam, Neurontin [Gabapentin], and Dfrjpef-Fjw-Agv Reductase Inhibitors MEDICATIONS metoprolol succinate ER (TOPROL XL) 50 mg 24 hr tablet Take 1 tablet by mouth once daily. traMADol (ULTRAM) 50 mg tablet Take 1 tablet by mouth twice daily as needed for pain. DULoxetine (CYMBALTA) 20 mg capsule Take 1 capsule by mouth once daily. meclizine (ANTIVERT) 25 mg tab Take 1 tablet by mouth every 6 hours as needed (dizziness). montelukast (SINGULAIR) 10 mg tablet Take 1 tablet by mouth daily at bedtime. metFORMIN (GLUCOPHAGE) 500 mg tablet Take 2 tablets by mouth twice daily. levothyroxine (SYNTHROID) 150 mcg tablet Take 1 tablet by mouth once daily. on an empty stomach for thyroid furosemide (LASIX) 40 mg tablet Take 1 tablet by mouth once daily. apixaban (ELIQUIS) 5 mg tab(s) Take 1 tablet by mouth twice daily. Lancets lancets Test blood sugar(s) 2 times daily. Dx: Type 2 DM - Uncontrolled E11.65 Insulin: No blood sugar diagnostic (BLOOD GLUCOSE TEST) test strip Test blood sugar(s) 2 times daily. Dx: Type 2 DM - Uncontrolled E11.65 Insulin: No nystatin (MYCOSTATIN) ointment Apply 1 application to affected area twice daily. MULTI-VITAMIN ORAL Take by mouth. FAMILY HISTORY Problem Relation Age of Onset Colon Cancer Mother Stroke Mother None Father None Brother None Brother Hypertension Mother Social History Tobacco Use Smoking status: Former Packs/day: 1.00 Years: 10.00 Additional pack years: 0.00 Total pack years: 10.00 Types: Cigarettes Start date: 08/21/2005 Quit date: 08/05/2006 Years since quittin.9 Smokeless tobacco: Never Substance Use Topics Alcohol use: No Drug use: No PHYSICAL EXAM BP 136/82 Pulse 92 Resp 16 Wt 115.7 kg (255 lb) BMI 44.46 kg/m? General Appearance: well appearing, in no acute distress, maryann (more content not included)...[facility]09-06-2023 NoteHNO ID: [id number] Author: Lolly Zamarripa APRN.WINDING LATHE OPERATOR Service: ? Author Type: Nurse Practitioner Type: Progress Notes Filed: 06/04/2023 2:11 PM Note Text: CC: Patient presents with: Recheck: 3 month follow up HPI M Tyra Grady is a 82 year old female who presents today for routine follow up but with multiple complaints. HTN/A-fib: Ms. Grady indicates that she is feeling well and denies any symptoms referable to elevated blood pressure. Specifically denies headache, chest pain, dyspnea, and peripheral edema. No change in chronic palpitations: Patient denies any side effects of her medication(s) and is compliant with their regimen. She does check BP's away from this office with average BP's in the 120s/80 range. M denies regular aerobic exercise. She watches her diet for sodium, low fat and low cholesterol most of the time. Last 3 Encounter BP Readings: Date: BP: 06/04/2023 138/84 03/03/2023 124/80 07/26/2022 132/70 Sees [facility]: Last seen this past summer without any new concerns. DIABETES MELLITUS: Ms. Grady denies excessive thirst or increased frequency of urination, chest pain or dyspnea , numbness, tingling or pain in extremities, new or unusual visual symptoms, low sugar/hypoglycemic reactions, weight loss/gain, and bowel changes/loose stools. Follows a diabetic diet most of the time. She is compliant with medication(s) and is tolerating med(s) without any side effects. She reports checking her glucose on a infrequent to not at all basis schedule . Patient's last HgA1C was Hemoglobin A1C (%) Date Value 03/03/2023 6.2 07/26/2022 6.2 02/11/2019 6.0 11/27/2018 6.4 Hemoglobin A1C (POCT) (%) Date Value 09/10/2019 6.1 ) Last Ophthalmology exam was within the past 3 months at [facility]. Chronic low back with right sided sciatica. Has had this for years without change. Has seen pain management and had multiple injections and various procedures but nothing seems to work and uses tramadol very sparingly. Has tried physical therapy twice without improvement. Has not returned in 6 months as this does not help. Also having concerns of anxiety. Feels it is related to her chronic pain and that she has difficulty going to anywhere and it is affecting her day to day life. Sleep: is described as normal Alcohol use: does not drink any alcohol Drug use: No Appetite: good Stresses: Major stressor: debilitating hip pain Suicidal Thoughts: No suicidal ideation, intent or plan Support: Comes from multiple sources including family Also reports she has woken up dizzy in the nighttime intermittently for the past 6 or 7 months when she rolls over and also feels she cant hear sometimes. Not being able to hear is intermittent and doesn't last too long. Has some intermittent dizziness in the day time but not often or severe. Denies sinus drainage, headaches, vision changes, fever, chills, ear drainage, cough, wheezing or change in energy. REVIEW OF SYSTEMS See HPI PAST MEDICAL HISTORY Diagnosis Date Diabetes mellitus without mention of complication Diabetes mellitus Diverticulosis of colon (without mention of hemorrhage) Essential hypertension, benign Family history of malignant neoplasm of gastrointestinal tract family history of colon cancer Internal hemorrhoids without mention of complication PMH - PAST MEDICAL HISTORY OF umbilical hernia Unspecified hypothyroidism PAST SURGICAL HISTORY Procedure Laterality Date ARTHRP KNE CONDYLEANDPLATU MEDIALANDLAT COMPARTMENTS 11/2007 right knee done at [facility] by COLONOSCOPY FLX DX W/COLLJ SPEC WHEN PFRMD 01/02/06 COLONOSCOPY FLX DX W/COLLJ SPEC WHEN PFRMD 2005 Colonoscopy COLONOSCOPY FLX DX W/COLLJ SPEC WHEN PFRMD 05/27/16 Colonoscopy DILATION AND CURETTAGE DXAND/THER NONOBSTETRIC Dilation AND curettage EXPLORATORY LAPAROTOMY CELIOTOMY W/WO BIOPSY SPX 60's Laparotomy, exp r/t GB INJECT LUMB/SACR FORAMEN EPI SGL 06/13 LAPAROSCOPY SURG CHOLECYSTECTOMY 08/05/06 Cholecystectomy, lap LAPS ABD PRTMANDOMENTUM DX W/WO SPEC BR/WA SPX Laparoscopy LIG/TRNSXJ FLP TUBE ABDL/VAG APPR UNI/BI 70's Tubal ligation RMVL LENS MATERIAL PHACOFRAGMENTATION ASPIR 09/19/2011 Cataract Extraction Right Eye - [facility] - Dr. Cain RMVL LENS MATERIAL PHACOFRAGMENTATION ASPIR 10/17/2011 Cataract Extraction Left Eye - [facility] RPR UMBILICAL HRNA 5 YRS/> REDUCIBLE 08/05/06 Hernia repair, umbilical >5yr THYROID LEFT FINE NEEDLE ASPIRATION 12/28/08 U/S bilateral thyroid fna THYROID RIGHT FINE NEEDLE ASPIRATION 12/28/08 U/S bilateral thyroid fna TONSILLECTOMY PRIMARY/SECONDARY Tonsillectomy ALLERGIES Meloxicam, Neurontin [Gabapentin], and Nazsmcl-Dyj-Szl Reductase Inhibitors MEDICATIONS meclizine (ANTIVERT) 25 mg tabTake 1 tablet by mouth every 6 hours as needed (dizziness).Disp: 30 tabletRfl: 4 montelukast (SINGULAIR) 10 mg tabletTake 1 tablet by mo (more content not included)...[facility]09-06-2023 History of Present illness Narrative* Lolly Zamarripa APRN.WINDING LATHE OPERATOR - 06/04/2023 12:22 PM EDT CC: Patient presents with: Recheck: 3 month follow up HPI Eh Grady is a 82 year old female who presents today for routine follow up but with multiple complaints. HTN/A-fib: Ms. Grady indicates that she is feeling well and denies any symptoms referable to elevated blood pressure. Specifically denies headache, chest pain, dyspnea, and peripheral edema. No change in chronic palpitations: Patient denies any side effects of her medication(s) and is compliant with their regimen. She does check BP's away from this office with average BP's in the 120s/80 range. M denies regular aerobic exercise. She watches her diet for sodium, low fat and low cholesterol most of the time. Last 3 Encounter BP Readings: Date: BP: 06/04/2023 138/84 03/03/2023 124/80 07/26/2022 132/70 Sees [facility]: Last seen this past summer without any new concerns. DIABETES MELLITUS: Ms. Grady denies excessive thirst or increased frequency of urination, chest pain or dyspnea , numbness, tingling or pain in extremities, new or unusual visual symptoms, low sugar/hypoglycemic reactions, weight loss/gain, and bowel changes/loose stools. Follows a diabetic diet most of the time. She is compliant with medication(s) and is tolerating med(s) without any side effects. She reports checking her glucose on a infrequent to not at all basis schedule . Patient's last HgA1C was Hemoglobin A1C (%) Date Value 03/03/2023 6.2 07/26/2022 6.2 02/11/2019 6.0 11/27/2018 6.4 Hemoglobin A1C (POCT) (%) Date Value 09/10/2019 6.1 ) Last Ophthalmology exam was within the past 3 months at [facility]. Chronic low back with right sided sciatica. Has had this for years without change. Has seen pain management and had multiple injections and various procedures but nothing seems to work and uses tramadol very sparingly. Has tried physical therapy twice without improvement. Has not returned in 6 months as this does not help. Also having concerns of anxiety. Feels it is related to her chronic pain and that she has difficulty going to anywhere and it is affecting her day to day life. Sleep: is described as normal Alcohol use: does not drink any alcohol Drug use: No Appetite: good Stresses: Major stressor: debilitating hip pain Suicidal Thoughts: No suicidal ideation, intent or plan Support: Comes from multiple sources including family Also reports she has woken up dizzy in the nighttime intermittently for the past 6 or 7 months whenshe rolls over and also feels she cant hear sometimes. Not being able to hear is intermittent and doesn't last too long. Has some intermittent dizziness in the day time but not often or severe. Denies sinus drainage, headaches, vision changes, fever, chills, ear drainage, cough, wheezing or change in energy. REVIEW OF SYSTEMS See HPI PAST MEDICAL HISTORY Diagnosis Date Diabetes mellitus without mention of complication Diabetes mellitus Diverticulosis of colon (without mention of hemorrhage) Essential hypertension, benign Family history of malignant neoplasm of gastrointestinal tract family history of colon cancer Internal hemorrhoids without mention of complication PMH - PAST MEDICAL HISTORY OF umbilical hernia Unspecified hypothyroidism PAST SURGICAL HISTORY Procedure Laterality Date ARTHRP KNE CONDYLE&PLATU MEDIAL&LAT COMPARTMENTS 11/2007 right knee done at [facility] by COLONOSCOPY FLX DX W/COLLJ SPEC WHEN PFRMD 01/02/06 COLONOSCOPY FLX DX W/COLLJ SPEC WHEN PFRMD 2005 Colonoscopy COLONOSCOPY FLX DX W/COLLJ SPEC WHEN PFRMD 05/27/16 Colonoscopy DILATION & CURETTAGE DX&/THER NONOBSTETRIC Dilation & curettage EXPLORATORY LAPAROTOMY CELIOTOMY W/WO BIOPSY SPX 60's Laparotomy, exp r/t GB INJECT LUMB/SACR FORAMEN EPI SGL 06/13 LAPAROSCOPY SURG CHOLECYSTECTOMY 08/05/06 Cholecystectomy, lap LAPS ABD PRTM&OMENTUM DX W/WO SPEC BR/WA SPX Laparoscopy LIG/TRNSXJ FLP TUBE ABDL/VAG APPR UNI/BI 70's Tubal ligation RMVL LENS MATERIAL PHACOFRAGMENTATION ASPIR 09/19/2011 Cataract Extraction Right Eye - [facility] - Dr. Cain RMVL LENS MATERIAL PHACOFRAGMENTATION ASPIR 10/17/2011 Cataract Extraction Left Eye - [facility] RPR UMBILICAL HRNA 5 YRS/> REDUCIBLE 08/05/06 Hernia repair, umbilical >5yr THYROID LEFT FINE NEEDLE ASPIRATION 12/28/08 U/S bilateral thyroid fna THYROID RIGHT FINE NEEDLE ASPIRATION 12/28/08 U/S bilateral thyroid fna TONSILLECTOMY PRIMARY/SECONDARY <AGE 12 Tonsillectomy ALLERGIES Meloxicam, Neurontin [Gabapentin], and Dpnpcsn-Szr-Dbv Reductase Inhibitors MEDICATIONS meclizine (ANTIVERT) 25 mg tab^Take 1 tablet by mouth every 6 hours as needed (dizziness).^Disp: 30tablet^Rfl: 4 montelukast (SINGULAIR) 10 mg tablet^Take 1 tablet by mouth daily at bedtime.^Disp: 30 tablet^Rfl: 11 metoprolol succinate ER (TOPROL XL) 50 mg 24 hr tablet^Take 1 tablet by mouth once daily.^Disp: 90 tablet^Rfl: 1 metFORMIN (GLUCOPHAGE) 500 mg tablet^Take 2 tablets by mouth twice daily.^Disp: 360 tablet^Rfl: 3 levothyroxine (SYNTHROID) 150 mcg tablet^Take 1 tablet by mouth once daily. on an empty stomach forthyroid^Disp: 90 tablet^Rfl: 3 furosemide (LASIX) 40 mg tablet^Take 1 tablet by mouth once daily.^Disp: 90 tablet^Rfl: 3 apixaban (ELIQUIS) 5 mg tab(s)^Take 1 tablet by mouth twice daily.^Disp: 180 tablet^Rfl: 1 Lancets lancets^Test blood sugar(s) 2 times daily. Dx: Type 2 DM - Uncontrolled E11.65 Insulin: No^Disp: 100 Each^Rfl: 11 blood sugar diagnostic (BLOOD GLUCOSE TEST) test strip^Test blood sugar(s) 2 times daily. Dx: Type 2 DM - Uncontrolled E11.65 Insulin: No^Disp: 70 Strip^Rfl: 11 traMADol (ULTRAM) 50 mg tablet^TAKE 1 TABLET BY MOUTH EVERY DAY to TWICE DAILY NEEDED FOR PAIN^Disp: ^Rfl: nystatin (MYCOSTATIN) ointment^Apply 1 application to affected area twice daily.^Disp: 30 g^Rfl: 3 MULTI-VITAMIN ORAL^Take by mouth.^Disp: ^Rfl: FAMILY HISTORY Problem Relation Age of Onset Colon Cancer Mother Stroke Mother None Father None Brother None Brother Hypertension Mother Social History Tobacco Use Smoking status: Former Packs/day: 1.00 Years: 10.00 Additional pack years: 0.00 Total pack years: 10.00 Types: Cigarettes Start date: 08/21/2005 Quit date: 08/05/2006 Years since quittin.8 Smokeless tobacco: Never Substance Use Topics Alcohol use: No Drug use: No PHYSICAL EXAM BP 138/84 Pulse 102 Resp 16 Wt 116.6 kg (257 lb) SpO2 96% BMI 44.81 kg/m General Appearance: well appearing, in no acute distress, alert Pysch: mood and affect broad and appropriate Skin: Skin color, texture, turgor normal for age; Eyes: conjunctiva pink and moist, no icterus, sclera white, non-injected Lungs: Lungs clear to auscultation. No wheezing, rhonchi, rales. Heart: RRR without murmur, gallop, or rubs. No ectopy Health maintenance not reviewed as patient had a list of concerns. DATA REVIEWED: Most recent labs ASSESSMENT/PLAN: 1. Chronic low back pain with right-sided sciatica, unspecified back pain laterality - ICD9: 724.2,724.3, 338.29, ICD10: M54.41, G89.29 (primary diagnosis) - small amount of tramadol ordered and starting on duloxetine. Hopefully duloxetine will help with pain management so tramadol not needed. - TRAMADOL 50 MG TABLET PDMP website checked and validated. All prescriptions have been APPROPRIATELY filled. No suspiciousactivity was identified. 06/04/2023 by Lolly Zamarripa APRN.WINDING LATHE OPERATOR 2. Anxiety - ICD9: 300.00, ICD10: F41.9 As above - uncontrolled and probable result of chronic pain. - Reviewed concept of neurochemical imbalance wth depression/anxiety, treatment options and benefits of counseling in combination with medication. Also reviewed benefits of sleep hygeine, diet and exercise - Follow-up in 6 weeks or sooner as needed - Instructed patient to contact office or [id number] after-hours promptly should condition worsen or any new symptoms appear. - Counseling Center [facility] and after hours crisis line 3. Type 2 diabetes mellitus without complication, without long-term current use of insulin (HCC) - ICD9: 250.00, ICD10: E11.9 - Controlled by last A1c needs discussed further at follow up. - Continue current medications - Blood glucose monitoring on a once daily schedule - Counseled on healthy diet and regular exercise - Discussed need for and benefit of weight loss. BMI 44.81 kg/(m^2) 4. Permanent atrial fibrillation (HCC) - ICD9: 427.31, ICD10: I48.21 - controlled and asymptomatic. Apical regular rhythm in appointment - on metoprolol for rate control and eliquis for DVT prevention. 5. Essential hypertension, benign - ICD9: 401.1, ICD10: I10 - Controlled - Continue current medications - Recommend home blood pressure monitoring, to bring results to next visit - Encouraged sodium restriction, DASH or Mediterranean diet - Recommend regular aerobic exercise 6. Decreased hearing, unspecified laterality - ICD9: 389.9, ICD10: H91.90 - happens intermittently, unfortunately with all concerns and discussions ears not assessed - ears need evaluated and possible ENT consult 7. Dizziness - ICD9: 780.4, ICD10: R42 - as above - possibly vertigo - needs further assessment 8. Acute diastolic (congestive) heart failure (HCC) - ICD9: 428.31, 428.0, ICD10: I50.31 - controlled and asymptomatic at this time - continue with medications and recommendations by cardiology. 9. Type 2 diabetes mellitus with stage 3a chronic kidney disease, without long- term current use of insulin (HCC) - ICD9: 250.40, 585.3, ICD10: E11.22, N18.31 - see #3 - eGFR: 52 Stable - Counseled on avoiding NSAIDs, adequate hydration 10. Stage 3a chronic kidney disease (HCC) - ICD9: 585.3, ICD10: N18.31 As above Prescription instructions reviewed with patient as applicable. Potential red flag symptoms discussed with the patient. Reviewed appropriate action plan to take if red flag symptoms occur. Patient agreeable to treatment plan. Lolly Zamarripa APRN.CNP documented in this encounterMartin [facility] NoteHNO ID: [id number] Author: Mihaela Ybarra MD Service: ? Author Type: Physician Type: Progress Notes Filed: 03/03/2023 7:01 PM Note Text: Reason for Visit Patient presents with: Medicare Wellness Exam: hearing issues, c/o issues with metoprolol and heartrate today is 98-114 h/o a-fib M Tyra Grady is a 82 year old female who presents here today for Above Complaints.. Health Maintenance SHINGRIX VACCINE(1 of 2) DTAP,TDAP,TD(1 - Tdap) DIABETIC FOOT EXAM COVID-19 VACCINE(4 - Booster for Pfizer series) ADVANCE DIRECTIVE DISCUSSION DEPRESSION ASSESSMENT URINE ALBUMIN:CREATININE RATIO HBA1C HPI She is here for 6-month follow-up Patient has sinus congestion in the ears, she thinks she has pollen allergies. Feels like she is full in the middle of her eyes, the neck etc. Examination was normal. Patient was found to have afib, when she was in pain management. She is on eliquis. Sees Dr Hackett, and follow up with him,. Diabetes Mellitus: she is on metformin, to continue the medication. Takes medication on a regular basis. Hypothyroidism. She is doing well on her current dose of Synthroid. Denies fatigue, cold intolerance and swelling in feet. TSH recently checked and normal. We need to recheck all her labs today No problem-specific Assessment AND Plan notes found for this encounter. PAST MEDICAL HISTORY Diagnosis Date Diabetes mellitus without mention of complication Diabetes mellitus Diverticulosis of colon (without mention of hemorrhage) Essential hypertension, benign Family history of malignant neoplasm of gastrointestinal tract family history of colon cancer Internal hemorrhoids without mention of complication PMH - PAST MEDICAL HISTORY OF umbilical hernia Unspecified hypothyroidism PAST SURGICAL HISTORY Procedure Laterality Date ARTHRP KNE CONDYLEANDPLATU MEDIALANDLAT COMPARTMENTS 11/2007 right knee done at [facility] by COLONOSCOPY FLX DX W/COLLJ SPEC WHEN PFRMD 01/02/06 COLONOSCOPY FLX DX W/COLLJ SPEC WHEN PFRMD 2005 Colonoscopy COLONOSCOPY FLX DX W/COLLJ SPEC WHEN PFRMD 05/27/16 Colonoscopy DILATION AND CURETTAGE DXAND/THER NONOBSTETRIC Dilation AND curettage EXPLORATORY LAPAROTOMY CELIOTOMY W/WO BIOPSY SPX 60's Laparotomy, exp r/t GB INJECT LUMB/SACR FORAMEN EPI SGL 06/13 LAPAROSCOPY SURG CHOLECYSTECTOMY 08/05/06 Cholecystectomy, lap LAPS ABD PRTMANDOMENTUM DX W/WO SPEC BR/WA SPX Laparoscopy LIG/TRNSXJ FLP TUBE ABDL/VAG APPR UNI/BI 70's Tubal ligation RMVL LENS MATERIAL PHACOFRAGMENTATION ASPIR 09/19/2011 Cataract Extraction Right Eye - [facility] - Dr. Cain RMVL LENS MATERIAL PHACOFRAGMENTATION ASPIR 10/17/2011 Cataract Extraction Left Eye - [facility] RPR UMBILICAL HRNA 5 YRS/> REDUCIBLE 08/05/06 Hernia repair, umbilical >5yr THYROID LEFT FINE NEEDLE ASPIRATION 12/28/08 U/S bilateral thyroid fna THYROID RIGHT FINE NEEDLE ASPIRATION 12/28/08 U/S bilateral thyroid fna TONSILLECTOMY PRIMARY/SECONDARY Tonsillectomy FAMILY HISTORY Problem Relation Age of Onset Colon Cancer Mother Stroke Mother None Father None Brother None Brother Hypertension Mother Social History Tobacco Use Smoking status: Former Packs/day: 1.00 Years: 10.00 Pack years: 10.00 Types: Cigarettes Start date: 08/21/2005 Quit date: 08/05/2006 Years since quittin.5 Smokeless tobacco: Never Substance Use Topics Alcohol use: No Drug use: No Past medical history, appointments, medications, allergies reviewed. Pertinent Lab/Diagnostic Studies are reviewed and discussed today Current Outpatient Medications: meclizine (ANTIVERT) 25 mg tab metoprolol succinate ER (TOPROL XL) 50 mg 24 hr tablet metFORMIN (GLUCOPHAGE) 500 mg tablet levothyroxine (SYNTHROID) 150 mcg tablet furosemide (LASIX) 40 mg tablet apixaban (ELIQUIS) 5 mg tab(s) Lancets lancets blood sugar diagnostic (BLOOD GLUCOSE TEST) test strip traMADol (ULTRAM) 50 mg tablet nystatin (MYCOSTATIN) ointment MULTI-VITAMIN ORAL Current Facility-Administered Medications: perflutren lipid microspheres 1.3 mL in NaCl (PF) 0.9% 10 mL injection (DEFINITY) sodium chloride 0.9 % (flush) 10 mL (BD POSIFLUSH) Review of Systems CONSTITUTIONAL: No fevers, chills night sweats, unintended weight loss CARDIOVASCULAR: No chest pain, dyspnea, palpitations, orthopnea, PND, ankle edema. PULM: No dyspnea, unexplained cough. GI: No dysphagia/odynophagia, problematic reflux, constipation, diarrhea, changes in stool habits, hematochezia, melena. : No new urinary complaints, including dysuria, gross hematuria or pyuria. NEURO: No new balance problems, peripheral weakness/paresthesias or numbness of concern. Physical Exam BP 124/80 (BP Site: Left Arm, BP Position: Sitting, BP Cuff Size: Large Adult) Pulse 98 Temp 36.7 ?C (98 ?F) Resp 14 Ht 161.3 cm (5' 3.5 ) Wt 116.6 kg (257 lb) SpO2 97% BMI 44.81 kg/m? General appear (more content not included)...[facility] 03-03-2023 Instructions* Patient Instructions* Mihaela Ybarra MD - 03/03/2023 12:20 PM EDT Please take vit b12 1000 mcg daily documented in this encounterMartin [facility]06-05-2023 History of Present illness Narrative* Mihaela Ybarra MD - 03/03/2023 12:08 PM EDT Reason for Visit Patient presents with: Medicare Wellness Exam: hearing issues, c/o issues with metoprolol and heartrate today is 98-114 h/o a-fib M Tyra Grady is a 82 year old female who presents here today for Above Complaints.. Health Maintenance SHINGRIX VACCINE(1 of 2) DTAP,TDAP,TD(1 - Tdap) DIABETIC FOOT EXAM COVID-19 VACCINE(4 - Booster for Pfizer series) ADVANCE DIRECTIVE DISCUSSION DEPRESSION ASSESSMENT URINE ALBUMIN:CREATININE RATIO HBA1C HPI She is here for 6-month follow-up Patient has sinus congestion in the ears, she thinks she has pollen allergies. Feels like she is full in the middle of her eyes, the neck etc. Examination was normal. Patient was found to have afib, when she was in pain management. She is on eliquis. Sees Dr Hackett, and follow up with him,. Diabetes Mellitus: she is on metformin, to continue the medication. Takes medication on a regular basis. Hypothyroidism. She is doing well on her current dose of Synthroid. Denies fatigue, cold intolerance and swelling in feet. TSH recently checked and normal. We need to recheck all her labs today No problem-specific Assessment & Plan notes found for this encounter. PAST MEDICAL HISTORY Diagnosis Date Diabetes mellitus without mention of complication Diabetes mellitus Diverticulosis of colon (without mention of hemorrhage) Essential hypertension, benign Family history of malignant neoplasm of gastrointestinal tract family history of colon cancer Internal hemorrhoids without mention of complication PMH - PAST MEDICAL HISTORY OF umbilical hernia Unspecified hypothyroidism PAST SURGICAL HISTORY Procedure Laterality Date ARTHRP KNE CONDYLE&PLATU MEDIAL&LAT COMPARTMENTS 11/2007 right knee done at [facility] by COLONOSCOPY FLX DX W/COLLJ SPEC WHEN PFRMD 01/02/06 COLONOSCOPY FLX DX W/COLLJ SPEC WHEN PFRMD 2005 Colonoscopy COLONOSCOPY FLX DX W/COLLJ SPEC WHEN PFRMD 05/27/16 Colonoscopy DILATION & CURETTAGE DX&/THER NONOBSTETRIC Dilation & curettage EXPLORATORY LAPAROTOMY CELIOTOMY W/WO BIOPSY SPX 60's Laparotomy, exp r/t GB INJECT LUMB/SACR FORAMEN EPI SGL 06/13 LAPAROSCOPY SURG CHOLECYSTECTOMY 08/05/06 Cholecystectomy, lap LAPS ABD PRTM&OMENTUM DX W/WO SPEC BR/WA SPX Laparoscopy LIG/TRNSXJ FLP TUBE ABDL/VAG APPR UNI/BI 70's Tubal ligation RMVL LENS MATERIAL PHACOFRAGMENTATION ASPIR 09/19/2011 Cataract Extraction Right Eye - [facility] - Dr. Cain RMVL LENS MATERIAL PHACOFRAGMENTATION ASPIR 10/17/2011 Cataract Extraction Left Eye - [facility] RPR UMBILICAL HRNA 5 YRS/> REDUCIBLE 08/05/06 Hernia repair, umbilical >5yr THYROID LEFT FINE NEEDLE ASPIRATION 12/28/08 U/S bilateral thyroid fna THYROID RIGHT FINE NEEDLE ASPIRATION 12/28/08 U/S bilateral thyroid fna TONSILLECTOMY PRIMARY/SECONDARY <AGE 12 Tonsillectomy FAMILY HISTORY Problem Relation Age of Onset Colon Cancer Mother Stroke Mother None Father None Brother None Brother Hypertension Mother Social History Tobacco Use Smoking status: Former Packs/day: 1.00 Years: 10.00 Pack years: 10.00 Types: Cigarettes Start date: 08/21/2005 Quit date: 08/05/2006 Years since quittin.5 Smokeless tobacco: Never Substance Use Topics Alcohol use: No Drug use: No Past medical history, appointments, medications, allergies reviewed. Pertinent Lab/Diagnostic Studies are reviewed and discussed today Current Outpatient Medications: meclizine (ANTIVERT) 25 mg tab metoprolol succinate ER (TOPROL XL) 50 mg 24 hr tablet metFORMIN (GLUCOPHAGE) 500 mg tablet levothyroxine (SYNTHROID) 150 mcg tablet furosemide (LASIX) 40 mg tablet apixaban (ELIQUIS) 5 mg tab(s) Lancets lancets blood sugar diagnostic (BLOOD GLUCOSE TEST) test strip traMADol (ULTRAM) 50 mg tablet nystatin (MYCOSTATIN) ointment MULTI-VITAMIN ORAL Current Facility-Administered Medications: perflutren lipid microspheres 1.3 mL in NaCl (PF) 0.9% 10 mL injection (DEFINITY) sodium chloride 0.9 % (flush) 10 mL (BD POSIFLUSH) Review of Systems CONSTITUTIONAL: No fevers, chills night sweats, unintended weight loss CARDIOVASCULAR: No chest pain, dyspnea, palpitations, orthopnea, PND, ankle edema. PULM: No dyspnea, unexplained cough. GI: No dysphagia/odynophagia, problematic reflux, constipation, diarrhea, changes in stool habits, hematochezia, melena. : No new urinary complaints, including dysuria, gross hematuria or pyuria. NEURO: No new balance problems, peripheral weakness/paresthesias or numbness of concern. Physical Exam BP 124/80 (BP Site: Left Arm, BP Position: Sitting, BP Cuff Size: Large Adult) Pulse 98 Temp 36.7 C (98 F) Resp 14 Ht 161.3 cm (5' 3.5 ) Wt 116.6 kg (257 lb) SpO2 97% BMI 44.81 kg/m General appearance: Well appearing, alert, in no acute distress, well nourished. Skin: Skin color, texture, turgor normal, no suspicious rashes or lesions Head: Normocephalic, no masses, lesions, tenderness or abnormalities Eyes: Anicteric sclera. Pupils are equally round and reactive to light. Extraocular movements are intact. Lungs: Lungs clear to auscultation. No wheezing, rhonchi, rales Heart: RRR without murmur, gallop, or rubs. Extremities: No deformities, edema, skin discoloration, clubbing or cyanosis. Good capillary refill. ASSESSMENT/PLAN: 1. Type 2 diabetes mellitus without complication, without long-term current use of insulin (HCC) - ICD9: 250.00, ICD10: E11.9 (primary diagnosis) - HGB A1C - COMP METABOLIC PANEL - CBC - LIPID PANEL BASIC 2. 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 Vitamin B12 deficiency - ICD9: 266.2, ICD10: E53.8 - HGB A1C - VITAMIN B12 BLOOD 4. Dizziness - ICD9: 780.4, ICD10: R42 - MECLIZINE 25 MG TABLET 5. Allergy, initial encounter - ICD9: 995.3, ICD10: T78.40XA - MONTELUKAST 10 MG TABLET 6. Permanent atrial fibrillation (HCC) - ICD9: 427.31, ICD10: I48.21 Continue the Eliquis Mihaela Ybarra MD documented in this encounterMartin [facility] Hospital06-05-[facility]23 Nurse Note* Valeria Hopkins LPN - 03/03/2023 11:22 AM EDT [facility] seen last year and is calling to set up a appt documented in this encounterMartin Memorial Hospital03-29-2023 Miscellaneous Notes* Telephone Encounter - Richelle De Los Santos LPN - 12/25/2022 9:52 AM EDT Patient has been identified by name and date of : Yes, Provider Dr. Ybarra Date 12/25/22 Time 9:56 am Patient phones for refill(s): Requested Prescriptions Pending Prescriptions Disp Refills metoprolol succinate ER (TOPROL XL) 50 mg 24 hr tablet 90 tablet 1 Sig: Take 1 tablet by mouth once daily. metFORMIN (GLUCOPHAGE) 500 mg tablet 360 tablet 3 Sig: Take 2 tablets by mouth twice daily. levothyroxine (SYNTHROID) 150 mcg tablet 90 tablet 3 Sig: Take 1 tablet by mouth once daily. on an empty stomach for thyroid furosemide (LASIX) 40 mg tablet 90 tablet 3 Sig: Take 1 tablet by mouth once daily. apixaban (ELIQUIS) 5 mg tab(s) 180 tablet 1 Sig: Take 1 tablet by mouth twice daily. Date of last office visit in primary care: 07/26/[address] 03/03/23 Last 2 Encounter Wt Readings: Date: Wt: 07/26/2022 116.6 kg (257 lb) 04/24/2022 114.3 kg (252 lb) Previous labs/tests for medication: Thyroid: TSH Date Value 07/26/2022 2.690 mIU/L 09/03/2019 5.660 uU/mL Diabetes: Hemoglobin A1C (%) Date Value 07/26/2022 6.2 03/07/2022 6.4 02/11/2019 6.0 11/27/2018 6.4 Hemoglobin A1C (POCT) (%) Date Value 09/10/2019 6.1 Thank you. Richelle De Los Santos LPN documented in this encounterMartin [facility] Hospital12-05-2022 Miscellaneous Notes* Telephone Encounter - Angy Romo - 09/02/2022 8:14 AM EST Patient cancelled cardiology appointment. She is using [facility] Angy Romo documented in this encounterMartin Memorial Hospital10-31-2022 Miscellaneous Notes* Telephone Encounter - Corrie Roth Ma - 07/29/2022 4:13 PM EDT Patient notified. * Telephone Encounter - Corrie Roth Ma - 07/29/2022 4:12 PM EDT ----- Message from Mihaela Ybarra MD sent at 07/27/2022 1:13 PM EDT ----- Labs are all reassuring. No concerns at this time. Regards, Mihaela Ybarra MD documented in this encounterMartin Memorial Hospital10-28-2022 History of Present illness Narrative* Mihaela Ybarra MD - 07/26/2022 11:49 AM EDT Reason for Visit Patient presents with: F/U Diabetes 3 Month M Tyra Grady is a 81 year old female who presents here today for Above Complaints.. Health Maintenance DIABETIC FOOT EXAM DEPRESSION ASSESSMENT COVID-19 VACCINE(4 - Booster for Pfizer series) INFLUENZA(1) HPI Sciatic pain for 3/4 years , she is in pain management for it, takes a percocet when she has to go out. She does not do any stretching , even minor. She does some minor stretching on and off. Vertigo- she notes getting dizzy when she bends over to the left and right side. She had been to DrMather. She does the kirsten maneuver every morning. We discussed doing that with a pillow under her shoulder. Will also send her some meclizine. Patient was found to have afib, when she was in pain management. She is on eliquis. Sees Dr Hackett, and follow up with him,. Diabetes Mellitus: she is on metformin, to continue the medication. Takes medication on a regular basis. Hypothyroidism. She is doing well on her current dose of Synthroid. Denies fatigue, cold intolerance and swelling in feet. TSH recently checked and normal. Patient uses water pill on a daily basis and it help her. No problem-specific Assessment & Plan notes found for this encounter. PAST MEDICAL HISTORY Diagnosis Date Diabetes mellitus without mention of complication Diabetes mellitus Diverticulosis of colon (without mention of hemorrhage) Essential hypertension, benign Family history of malignant neoplasm of gastrointestinal tract family history of colon cancer Internal hemorrhoids without mention of complication PMH - PAST MEDICAL HISTORY OF umbilical hernia Unspecified hypothyroidism PAST SURGICAL HISTORY Procedure Laterality Date ARTHRP KNE CONDYLE&PLATU MEDIAL&LAT COMPARTMENTS 11/2007 right knee done at [facility] by COLONOSCOPY FLX DX W/COLLJ SPEC WHEN PFRMD 01/02/06 COLONOSCOPY FLX DX W/COLLJ SPEC WHEN PFRMD 2005 Colonoscopy COLONOSCOPY FLX DX W/COLLJ SPEC WHEN PFRMD 05/27/16 Colonoscopy DILATION & CURETTAGE DX&/THER NONOBSTETRIC Dilation & curettage EXPLORATORY LAPAROTOMY CELIOTOMY W/WO BIOPSY SPX 60's Laparotomy, exp r/t GB INJECT LUMB/SACR FORAMEN EPI SGL 06/13 LAPAROSCOPY SURG CHOLECYSTECTOMY 08/05/06 Cholecystectomy, lap LAPS ABD PRTM&OMENTUM DX W/WO SPEC BR/WA SPX Laparoscopy LIG/TRNSXJ FLP TUBE ABDL/VAG APPR UNI/BI 70's Tubal ligation RMVL LENS MATERIAL PHACOFRAGMENTATION ASPIR 09/19/2011 Cataract Extraction Right Eye - [facility] - Dr. Cain RMVL LENS MATERIAL PHACOFRAGMENTATION ASPIR 10/17/2011 Cataract Extraction Left Eye - [facility] RPR UMBILICAL HRNA 5 YRS/> REDUCIBLE 08/05/06 Hernia repair, umbilical >5yr THYROID LEFT FINE NEEDLE ASPIRATION 12/28/08 U/S bilateral thyroid fna THYROID RIGHT FINE NEEDLE ASPIRATION 12/28/08 U/S bilateral thyroid fna TONSILLECTOMY PRIMARY/SECONDARY <AGE 12 Tonsillectomy FAMILY HISTORY Problem Relation Age of Onset Colon Cancer Mother Stroke Mother None Father None Brother None Brother Hypertension Mother Social History Tobacco Use Smoking status: Former Packs/day: 1.00 Years: 10.00 Pack years: 10.00 Types: Cigarettes Start date: 08/21/2005 Quit date: 08/05/2006 Years since quittin.9 Smokeless tobacco: Never Substance Use Topics Alcohol use: No Drug use: No Past medical history, appointments, medications, allergies reviewed. Pertinent Lab/Diagnostic Studies are reviewed and discussed today Current Outpatient Medications: metoprolol succinate ER (TOPROL XL) 50 mg 24 hr tablet apixaban (ELIQUIS) 5 mg tab(s) Lancets lancets blood sugar diagnostic (BLOOD GLUCOSE TEST) test strip traMADol (ULTRAM) 50 mg tablet nystatin (MYCOSTATIN) ointment metFORMIN (GLUCOPHAGE) 500 mg tablet levothyroxine (SYNTHROID) 150 mcg tablet furosemide (LASIX) 40 mg tablet apixaban (ELIQUIS DVT-PE TREAT 30D START) 5 mg (74 tabs) MULTI-VITAMIN ORAL Current Facility-Administered Medications: perflutren lipid microspheres 1.3 mL in NaCl (PF) 0.9% 10 mL injection (DEFINITY) sodium chloride 0.9 % (flush) 10 mL (BD POSIFLUSH) cyanocobalamin 1,000 mcg injection cyanocobalamin 1,000 mcg injection Review of Systems CONSTITUTIONAL: No fevers, chills night sweats, unintended weight loss CARDIOVASCULAR: No chest pain, dyspnea, palpitations, orthopnea, PND, ankle edema. PULM: No dyspnea, unexplained cough. GI: No dysphagia/odynophagia, problematic reflux, constipation, diarrhea, changes in stool habits, hematochezia, melena. : No new urinary complaints, including dysuria, gross hematuria or pyuria. NEURO: No new balance problems, peripheral weakness/paresthesias or numbness of concern. Physical Exam BP 132/70 (BP Site: Left Arm, BP Position: Sitting, BP Cuff Size: Large Adult) Pulse 82 Temp 36.2 C (97.2 F) Resp 16 Ht 161.3 cm (5' 3.5 ) Wt 116.6 kg (257 lb) SpO2 98% BMI 44.81 kg/m General appearance: Well appearing, alert, in no acute distress, well nourished. Skin: Skin color, texture, turgor normal, no suspicious rashes or lesions Head: Normocephalic, no masses, lesions, tenderness or abnormalities Eyes: Anicteric sclera. Pupils are equally round and reactive to light. Extraocular movements are intact. Lungs: Lungs clear to auscultation. No wheezing, rhonchi, rales Heart: RRR without murmur, gallop, or rubs. Extremities: No deformities, edema, skin discoloration, clubbing or cyanosis. Good capillary refill. ASSESSMENT/PLAN: 1. Type 2 diabetes mellitus without complication, without long-term current use of insulin (HCC) - ICD9: 250.00, ICD10: E11.9 (primary diagnosis) Controlled. - Continue current medications - HGB A1C - COMP METABOLIC PANEL - CBC - TSH BLD - LIPID PANEL BASIC 2. Atrial fibrillation, unspecified type (HCC) - ICD9: 427.31, ICD10: I48.91 3. Essential hypertension, benign - ICD9: 401.1, ICD10: I10 - good control - Recommended regular aerobic exercise. - Recommend home blood pressure monitoring, to bring results in on next visit - Goal of BP <130/80 4. Hypothyroidism, unspecified type - ICD9: 244.9, ICD10: E03.9 - Instructed patient on importance of taking on an empty stomach either first thing in the morning or at bedtime. Stable - Eat well program Mihaela Ybarra MD documented in this encounterMartin Memorial Hospital08-31-2022 Miscellaneous Notes* Telephone Encounter - Mihaela Ybarra MD - 05/29/2022 8:53 PM EDT Noted * Telephone Encounter - Ryanne Dyer RN - 05/29/2022 1:22 PM EDT Pt called and is notified of providers results and message. Pt voices understanding, and reports she hasn't had any palpitations since she has increased the Metoprolol. Pt was told to let us know if she has any more. Ryanne Babulski, RN * Telephone Encounter - Lolly Zamarripa APRN.CNP - 05/29/2022 12:31 PM EDT Please let patient know her final reading showed her highest heart rate in 170s for a short period which was also when she indicated she had palpitations. How have her palpitations been since increasing the metoprolol? Thank you Lolly Zamarripa APRN.CNP documented in this encounterMartin Memorial Hospital08-19-2022 Miscellaneous Notes* Telephone Encounter - Corrie Roth Ma - 05/17/2022 10:44 AM EDT Patient notified. * Telephone Encounter - Lolly Zamarripa APRN.CNP - 05/17/2022 9:52 AM EDT Please let patient know her preliminary heart monitor results showed her heart rate averaging in the low 100s. I am increasing her metoprolol to 50mg once daily. We will call if there is any new information when the report is finalized. Thank you Lolly Zamarripa APRN.CNP documented in this encounterMartin Memorial Hospital07-27-2022 History of Present illness Narrative* Lolly Zamarripa APRN.CNP - 04/24/2022 10:20 AM EDT CC: Patient presents with: Recheck: review Echo HPI M Tyra Grady is a 81 year old female who presents today to review echocardiogram. Was diagnosed earlier this year with atrial fibrillation, recent echo cardiogram showing worsening of valvular issues mod to severe aortic stenosis, and reported being in A-fib with RVR at that time. Is scheduled to see cardiology in August. Was asked to come into office for updated EKG, vital signs, and possible holter monitor. No increase or change in palpitations. Still reports them as being almost daily, lasting a few seconds, and self resolving. Denies chest pain, shortness of breath, edema, or any other new concerns. Has not had a steroid injection by pain management since being diagnosed with atrial fibrillation. REVIEW OF SYSTEMS General: no fevers, no chills, no night sweats, no recurrent infections, no change in appetite, no change in energy and no significant changes in weight Respiratory: no cough, no wheezing, no shortness of breath, no hemoptysis Cardiovascular: no chest pain, no chest pressure and no swelling Neurologic: No headache dizziness, syncope. PAST MEDICAL HISTORY Diagnosis Date Diabetes mellitus without mention of complication Diabetes mellitus Diverticulosis of colon (without mention of hemorrhage) Essential hypertension, benign Family history of malignant neoplasm of gastrointestinal tract family history of colon cancer Internal hemorrhoids without mention of complication PMH - PAST MEDICAL HISTORY OF umbilical hernia Unspecified hypothyroidism PAST SURGICAL HISTORY Procedure Laterality Date ARTHRP KNE CONDYLE&PLATU MEDIAL&LAT COMPARTMENTS 11/2007 right knee done at [facility] by COLONOSCOPY FLX DX W/COLLJ SPEC WHEN PFRMD 01/02/06 COLONOSCOPY FLX DX W/COLLJ SPEC WHEN PFRMD 2005 Colonoscopy COLONOSCOPY FLX DX W/COLLJ SPEC WHEN PFRMD 05/27/16 Colonoscopy DILATION & CURETTAGE DX&/THER NONOBSTETRIC Dilation & curettage EXPLORATORY LAPAROTOMY CELIOTOMY W/WO BIOPSY SPX 60's Laparotomy, exp r/t GB INJECT LUMB/SACR FORAMEN EPI SGL 06/13 LAPAROSCOPY SURG CHOLECYSTECTOMY 08/05/06 Cholecystectomy, lap LAPS ABD PRTM&OMENTUM DX W/WO SPEC BR/WA SPX Laparoscopy LIG/TRNSXJ FLP TUBE ABDL/VAG APPR UNI/BI 70's Tubal ligation RMVL LENS MATERIAL PHACOFRAGMENTATION ASPIR 09/19/2011 Cataract Extraction Right Eye - [facility] - Dr. Cain RMVL LENS MATERIAL PHACOFRAGMENTATION ASPIR 10/17/2011 Cataract Extraction Left Eye - [facility] RPR UMBILICAL HRNA 5 YRS/> REDUCIBLE 08/05/06 Hernia repair, umbilical >5yr THYROID LEFT FINE NEEDLE ASPIRATION 12/28/08 U/S bilateral thyroid fna THYROID RIGHT FINE NEEDLE ASPIRATION 12/28/08 U/S bilateral thyroid fna TONSILLECTOMY PRIMARY/SECONDARY <AGE 12 Tonsillectomy ALLERGIES Meloxicam, Neurontin [Gabapentin], and Cmimjog-Qmu-Pvv Reductase Inhibitors MEDICATIONS apixaban (ELIQUIS) 5 mg tab(s) Take 1 tablet by mouth twice daily. metoprolol succinate ER (TOPROL XL) 25 mg 24 hr tablet Take 1 tablet by mouth once daily. Lancets lancets Test blood sugar(s) 2 times daily. Dx: Type 2 DM - Uncontrolled E11.65 Insulin: No blood sugar diagnostic (BLOOD GLUCOSE TEST) test strip Test blood sugar(s) 2 times daily. Dx: Type 2 DM - Uncontrolled E11.65 Insulin: No traMADol (ULTRAM) 50 mg tablet TAKE 1 TABLET BY MOUTH EVERY DAY to TWICE DAILY NEEDED FOR PAIN nystatin (MYCOSTATIN) ointment Apply 1 application to affected area twice daily. metFORMIN (GLUCOPHAGE) 500 mg tablet Take 2 tablets by mouth twice daily. levothyroxine (SYNTHROID) 150 mcg tablet Take 1 tablet by mouth once daily. on an empty stomach forthyroid furosemide (LASIX) 40 mg tablet Take 1 tablet by mouth once daily. apixaban (ELIQUIS DVT-PE TREAT 30D START) 5 mg (74 tabs) Take 2 tablets (10 mg) by mouth twice daily for 7 days. Then take 1 tablet (5 mg) by mouth twice daily for 23 days MULTI-VITAMIN ORAL Take by mouth. FAMILY HISTORY Problem Relation Age of Onset Colon Cancer Mother Stroke Mother None Father None Brother None Brother Hypertension Mother Social History Tobacco Use Smoking status: Former Smoker Packs/day: 1.00 Years: 10.00 Pack years: 10.00 Types: Cigarettes Start date: 08/21/2005 Quit date: 08/05/2006 Years since quittin.7 Smokeless tobacco: Never Used Substance Use Topics Alcohol use: No Drug use: No PHYSICAL EXAM BP 132/84 Pulse 80 Resp 16 Wt 114.3 kg (252 lb) BMI 43.94 kg/m General Appearance: well appearing, in no acute distress, alert Eyes: conjunctiva pink and moist, no icterus, sclera white, non-injected Lungs: Lungs clear to auscultation. No wheezing, rhonchi, rales. Heart: Apical irregula without gallop, or rubs. No ectopy Health maintenance reviewed with patient: DIABETIC FOOT EXAM due on 07/19/2015 COVID-19 VACCINE(4 - Booster for [employer] series) due on 12/10/2021 DILATED RETINAL EXAM due on 05/17/2022 ADVANCE DIRECTIVE DISCUSSION due on 09/28/2022 DTAP,TDAP,TD(1 - Tdap) due on 12/03/2022 SHINGRIX VACCINE(1 of 2) due on 12/03/2022 INFLUENZA(1) due on 05/30/2022 HBA1C due on 09/06/2022 URINE ALBUMIN:CREATININE RATIO due on 12/03/2022 LDL CHOLESTEROL due on 12/03/2022 BONE DENSITY Completed PNEUMOCOCCAL: 65+ Completed DATA REVIEWED: Most recent imaging EKG Interpretation: RHYTHM: Atrial fibrillation, Inferior Infarct QRS COMPLEX: Normal QT INTERVAL: Normal COMPARED WITH PRIOR: unchanged ASSESSMENT/PLAN: 1. Atrial fibrillation, unspecified type (HCC) - ICD9: 427.31, ICD10: I48.91 (primary diagnosis) - rate controlled when in office, no change in previous EKG from November and patient overall asymptomatic. Will do a monitor for 2 weeks to see how often heart rate is elevated/RVR and then increase metoprolol if needed. Patient unable to see [facility] cardiology until August so requesting consult be sent to [facility]. - OUTSIDE VENDOR CARDIAC OUTPATIENT EXTENDED RHYTHM RECORDING (WITHOUT TELEMETRY) - follow up in 3 months 2. Aortic valve stenosis, etiology of cardiac valve disease unspecified - ICD9: 424.1, ICD10: I35.0 As above 3. Palpitations - ICD9: 785.1, ICD10: R00.2 As above - OUTSIDE VENDOR CARDIAC OUTPATIENT EXTENDED RHYTHM RECORDING (WITHOUT TELEMETRY) 4. Tachycardia - ICD9: 785.0, ICD10: R00.0 As above - OUTSIDE VENDOR CARDIAC OUTPATIENT EXTENDED RHYTHM RECORDING (WITHOUT TELEMETRY) Prescription instructions reviewed with patient as applicable. Potential red flag symptoms discussed with the patient. Reviewed appropriate action plan to take if red flag symptoms occur. Patient agreeable to treatment plan. Lolly Zamarripa APRN.CNP documented in this encounter[facility]07-[facility]22 Miscellaneous Notes* Telephone Encounter - Corrie Roth Ma - 04/19/2022 11:15 AM EDT Patient notified and appointment scheduled. * Telephone Encounter - Corrie Roth Ma - 04/19/2022 11:11 AM EDT ----- Message from Lolly Zamarripa APRN.CNP sent at 04/19/2022 10:01 AM EDT ----- Please let patient know Echo showed worsening of previous valvular issues and aortic stenosis. Since, she is not seeing cardiology until August, I would like her to come in next week for an appointment to get an updated EKG and discuss ordering a home heart monitor to be used over a few weeks period. Thank you Lolly Zamarripa APRN.CNP documented in this encounterMartin [facility]07-11-[facility]22 History of Present illness Narrative* Lolly Zamarripa APRN.CNP - 04/08/2022 3:06 PM EDT CC: Patient presents with: Recheck: 3 month follow up HPI Eh Tyra Grady is a 81 year old female who presents today for follow up on diabetes hypertension and atrial fibrillation. DIABETES MELLITUS: Ms. Grady denies excessive thirst or increased frequency of urination, chest pain or dyspnea , numbness, tingling or pain in extremities, new or unusual visual symptoms, low sugar/hypoglycemic reactions, weight loss/gain, lightheadedness/dizziness. Follows a diabetic diet most ofthe time. She is compliant with medication(s) and is tolerating med(s) without any side effects. She reports checking her glucose on a weekly schedule with sugars in the fasting 110s range. Patient'slast HgA1C was Hemoglobin A1C (%) Date Value 03/07/2022 6.4 12/03/2021 6.9 02/11/2019 6.0 11/27/2018 6.4 Hemoglobin A1C (POCT) (%) Date Value 09/10/2019 6.1 ) Last Ophthalmology exam is scheduled for next month at [facility] [address] [facility] Dr. Whatley. Has had diarrhea off and on since starting the metformin many years ago. Takes imodium when this happens. Had seen Dr. Aguayo for this a couple years ago and she was told no need to return that nothing was wrong and possibly related to metformin. Would like to decrease dose to see if this helps. Denies change in appetite, nausea, vomiting, or blood in stools. A/fib and HTN: HTN: Ms. Grady indicates that she is feeling well and denies any symptoms referable to elevated blood pressure. Specifically denies headache, chest pain, dyspnea and peripheral edema. Patient denies any side effects of her medication(s) and is compliant with their regimen. She does check BP's away from this office with average BP's in the 120s/70s range. M denies regular aerobic exercise. She watches her diet for sodium, low fat and low cholesterol most of the time. Last 3 Encounter BP Readings: Date: BP: 04/08/2022 122/78 12/10/2021 127/84[BP Christopher[ 12/03/2021 136/80 Does have palpitations every day, but only last for a few seconds. No accompanying symptoms of chest pain, shortness of breath, nausea, or fatigue. Also has what she refers to as a skin colored mole of her right cheek for years, that she picks at it, it bleeds, and then comes back. REVIEW OF SYSTEMS General: no fevers, no chills, no night sweats, no recurrent infections, no change in appetite, no change in energy and no significant changes in weight Respiratory: no cough, no wheezing, no shortness of breath, no hemoptysis Cardiovascular: no chest pain, no chest pressure and no swelling GI: See HPI Endocrine: no fatigue, no cold intolerance, no heat intolerance, no polyuria, no polyphagia and no polydipsia Neurologic: No headache, weakness, numbness, tingling,dizziness, syncope. PAST MEDICAL HISTORY Diagnosis Date Diabetes mellitus without mention of complication Diabetes mellitus Diverticulosis of colon (without mention of hemorrhage) Essential hypertension, benign Family history of malignant neoplasm of gastrointestinal tract family history of colon cancer Internal hemorrhoids without mention of complication PMH - PAST MEDICAL HISTORY OF umbilical hernia Unspecified hypothyroidism PAST SURGICAL HISTORY Procedure Laterality Date ARTHRP KNE CONDYLE&PLATU MEDIAL&LAT COMPARTMENTS 11/2007 right knee done at [facility] by COLONOSCOPY FLX DX W/COLLJ SPEC WHEN PFRMD 01/02/06 COLONOSCOPY FLX DX W/COLLJ SPEC WHEN PFRMD 2005 Colonoscopy COLONOSCOPY FLX DX W/COLLJ SPEC WHEN PFRMD 05/27/16 Colonoscopy DILATION & CURETTAGE DX&/THER NONOBSTETRIC Dilation & curettage EXPLORATORY LAPAROTOMY CELIOTOMY W/WO BIOPSY SPX 60's Laparotomy, exp r/t GB INJECT LUMB/SACR FORAMEN EPI SGL 06/13 LAPAROSCOPY SURG CHOLECYSTECTOMY 08/05/06 Cholecystectomy, lap LAPS ABD PRTM&OMENTUM DX W/WO SPEC BR/WA SPX Laparoscopy LIG/TRNSXJ FLP TUBE ABDL/VAG APPR UNI/BI 70's Tubal ligation RMVL LENS MATERIAL PHACOFRAGMENTATION ASPIR 09/19/2011 Cataract Extraction Right Eye - [facility] - Dr. Cain RMVL LENS MATERIAL PHACOFRAGMENTATION ASPIR 10/17/2011 Cataract Extraction Left Eye - [facility] RPR UMBILICAL HRNA 5 YRS/> REDUCIBLE 08/05/06 Hernia repair, umbilical >5yr THYROID LEFT FINE NEEDLE ASPIRATION 12/28/08 U/S bilateral thyroid fna THYROID RIGHT FINE NEEDLE ASPIRATION 12/28/08 U/S bilateral thyroid fna TONSILLECTOMY PRIMARY/SECONDARY <AGE 12 Tonsillectomy ALLERGIES Meloxicam, Neurontin [Gabapentin], and Bwtrahs-Yje-Mdf Reductase Inhibitors MEDICATIONS apixaban (ELIQUIS) 5 mg tab(s) Take 1 tablet by mouth twice daily. metoprolol succinate ER (TOPROL XL) 25 mg 24 hr tablet Take 1 tablet by mouth once daily. Lancets lancets Test blood sugar(s) 2 times daily. Dx: Type 2 DM - Uncontrolled E11.65 Insulin: No blood sugar diagnostic (BLOOD GLUCOSE TEST) test strip Test blood sugar(s) 2 times daily. Dx: Type 2 DM - Uncontrolled E11.65 Insulin: No traMADol (ULTRAM) 50 mg tablet TAKE 1 TABLET BY MOUTH EVERY DAY to TWICE DAILY NEEDED FOR PAIN nystatin (MYCOSTATIN) ointment Apply 1 application to affected area twice daily. celecoxib (CELEBREX) 200 mg capsule Take 200 mg by mouth. metFORMIN (GLUCOPHAGE) 500 mg tablet Take 2 tablets by mouth twice daily. levothyroxine (SYNTHROID) 150 mcg tablet Take 1 tablet by mouth once daily. on an empty stomach forthyroid furosemide (LASIX) 40 mg tablet Take 1 tablet by mouth once daily. apixaban (ELIQUIS DVT-PE TREAT 30D START) 5 mg (74 tabs) Take 2 tablets (10 mg) by mouth twice daily for 7 days. Then take 1 tablet (5 mg) by mouth twice daily for 23 days MULTI-VITAMIN ORAL Take by mouth. FAMILY HISTORY Problem Relation Age of Onset Colon Cancer Mother Stroke Mother None Father None Brother None Brother Hypertension Mother Social History Tobacco Use Smoking status: Former Smoker Packs/day: 1.00 Years: 10.00 Pack years: 10.00 Types: Cigarettes Start date: 08/21/2005 Quit date: 08/05/2006 Years since quittin.6 Smokeless tobacco: Never Used Substance Use Topics Alcohol use: No Drug use: No PHYSICAL EXAM BP 122/78 Pulse 88 Resp 16 Wt 113.9 kg (251 lb) BMI 43.77 kg/m General Appearance: well appearing, in no acute distress, alert Skin: Skin color, texture, turgor normal for age; Eyes: conjunctiva pink and moist, no icterus, sclera white, non-injected - right cheek with flesh colored lesion, no drainage redness or tenderness to area Neck: Thyroid normal size and symmetric without palpable nodules, No adenopathy Lymph nodes: No cervical lymphadenopathy and No supraclavicular lymphadenopathy Lungs: Lungs clear to auscultation. No wheezing, rhonchi, rales. Heart: RRR without murmur, gallop, or rubs. No ectopy Extremities: No deformities, edema, skin discoloration, clubbing or cyanosis. Good capillary refill. Health maintenance reviewed with patient: DIABETIC FOOT EXAM due on 07/19/2015 COVID-19 VACCINE(4 - Booster for [employer] series) due on 12/10/2021 ADVANCE DIRECTIVE DISCUSSION due on 09/28/2022 DTAP,TDAP,TD(1 - Tdap) due on 12/03/2022 SHINGRIX VACCINE(1 of 2) due on 12/03/2022 DILATED RETINAL EXAM due on 05/17/2022 INFLUENZA(1) due on 05/30/2022 HBA1C due on 09/06/2022 URINE ALBUMIN:CREATININE RATIO due on 12/03/2022 LDL CHOLESTEROL due on 12/03/2022 BONE DENSITY Completed PNEUMOCOCCAL: 65+ Completed DATA REVIEWED: Most recent labs ASSESSMENT/PLAN: 1. Type 2 diabetes mellitus without complication, without long-term current use of insulin (HCC) - ICD9: 250.00, ICD10: E11.9 (primary diagnosis) Controlled. - Blood glucose monitoring on a once a day schedule - BP goal of <130/80 - LDL goal of <100 - Ok to decrease metformin 1 tablet once a day - discussed switching to XR but patient would like to see if the decrease helps with the diarrhea and still allowing her blood sugar to be controlled. She is not interested in trialing other therapies at this time like ozempic or trulicity. 2. Atrial fibrillation, unspecified type (HCC) - ICD9: 427.31, ICD10: I48.91 - rate controlled, on eliquis for DVT prophylaxis, Last Echo was in 2019 showing mitral valve and aortic stenosis with normal LVEF. Diastolic function was not evaluated. Patient also has not established with cardiology - PERFLUTREN LIPID MICROSPHERES 1.1 MG/ML INJECTION IN NS 10 ML - SODIUM CHLORIDE 0.9 % (FLUSH) INJECTION SYRINGE - ECHO - CONSULT TO CARDIOLOGY 3. Palpitations - ICD9: 785.1, ICD10: R00.2 As above - PERFLUTREN LIPID MICROSPHERES 1.1 MG/ML INJECTION IN NS 10 ML - SODIUM CHLORIDE 0.9 % (FLUSH) INJECTION SYRINGE - ECHO - CONSULT TO CARDIOLOGY 4. Essential hypertension, benign - ICD9: 401.1, ICD10: I10 - good control - Continue current medication(s) - Recommended regular aerobic exercise. - Recommend home blood pressure monitoring, to bring results in on next visit - Goal of BP <130/80 5. Face lesion - ICD9: 709.9, ICD10: L98.9 - asked patient to not pick at lesion so it can be appropriately assessed. - CONSULT TO DERMATOLOGY Prescription instructions reviewed with patient as applicable. Potential red flag symptoms discussed with the patient. Reviewed appropriate action plan to take if red flag symptoms occur. Patient agreeable to treatment plan. Lolly Zamarripa APRN.CNP documented in this encounterMartin [facility]06-15-2022 Miscellaneous Notes* Telephone Encounter - Gosia Gipson LPN - 03/13/2022 10:23 AM EDT Patient has refills at the pharmacy for Metformin, Levothyroxine, and Furosemide. Only refills needed are for the Eliquis and Metoprolol. Please advise. * Telephone Encounter - Alaina De Los Santos Pss - 03/13/2022 8:49 AM EDT Patient has been identified by name and date of : Yes Pending Prescriptions Disp Refills METFORMIN 500 MG TABLET 360 tablet 3 Sig: Take 2 tablets by mouth twice daily. KATE: No LEVOTHYROXINE 150 MCG TABLET 90 tablet 3 Sig: Take 1 tablet by mouth once daily. on an empty stomach for thyroid KATE: No FUROSEMIDE 40 MG TABLET 90 tablet 3 Sig: Take 1 tablet by mouth once daily. KATE: No APIXABAN 5 MG TABLET 180 tablet 1 Sig: Take 1 tablet by mouth twice daily. KATE: No METOPROLOL SUCCINATE ER 25 MG TABLET,EXTENDED RELEASE 24 HR 90 tablet 2 Sig: Take 1 tablet by mouth once daily. KATE: No RX INSTRUCTIONS: Patient aware RX will be sent to pharmacy. No need to notify patient. Alaina De Los Santos Pss documented in this encounterMartin [facility]04-06-2017 History of Past illness Narrative* Problem Noted Date Resolved Date Morbid obesity 01/02/2017 12/01/2018 Last Assessment & Plan: Gained a little weight Breast abscess 06/27/2016 12/01/2018 Type 2 diabetes mellitus without complication 12/01/2018 Last Assessment & Plan: Well controlled hba1c is 6.5 DM type 2 (diabetes mellitus, type 2) 08/22/2014 01/12/2016 BMI 45.0-49.9, adult 04/21/2014 01/18/2015 Diabetes mellitus type 2, uncontrolled 4 01/18/2015 Biloma 05/01/2013 01/12/2016 GOITER MULTINODULAR, NONTOXIC 12/15/2008 Other abnormal clinical finding 09/08/2008 07/19/2014 Unspecified hypertrophic and atrophic condition of skin 04/25/2007 07/19/2014 Sebaceous cyst 04/16/2007 07/19/2014 Acute cholecystitis 08/11/2006 03/20/2007 Incisional hernia without mention of obstruction or gangrene 08/11/2006 03/20/2007 DIABETES MELLITUS ADULT ONSET 10/24/2005 Hyperlipidemia 10/24/2005 01/12/2016 Internal hemorrhoids without mention of complica tion 01/18/2015 documented as of this encounter (statuses as of 03/13/2022) [facility] of Past illness Narrative* Problem Noted Date Resolved Date Morbid obesity 01/02/2017 12/01/2018 Last Assessment & Plan: Gained a little weight Breast abscess 06/27/2016 12/01/2018 Type 2 diabetes mellitus without complication 12/01/2018 Last Assessment & Plan: Well controlled hba1c is 6.5 DM type 2 (diabetes mellitus, type 2) 08/22/2014 01/12/2016 BMI 45.0-49.9, adult 04/21/2014 01/18/2015 Diabetes mellitus type 2, uncontrolled 4 01/18/2015 Biloma 05/01/2013 01/12/2016 GOITER MULTINODULAR, NONTOXIC 12/15/2008 Other abnormal clinical finding 09/08/2008 07/19/2014 Unspecified hypertrophic and atrophic condition of skin 04/25/2007 07/19/2014 Sebaceous cyst 04/16/2007 07/19/2014 Acute cholecystitis 08/11/2006 03/20/2007 Incisional hernia without mention of obstruction or gangrene 08/11/2006 03/20/2007 DIABETES MELLITUS ADULT ONSET 10/24/2005 Hyperlipidemia 10/24/2005 01/12/2016 Internal hemorrhoids without mention of complica tion 01/18/2015 documented as of this encounter (statuses as of 04/08/2022) [facility] of Past illness Narrative* Problem Noted Date Resolved Date Morbid obesity 01/02/2017 12/01/2018 Last Assessment & Plan: Gained a little weight Breast abscess 06/27/2016 12/01/2018 Type 2 diabetes mellitus without complication 12/01/2018 Last Assessment & Plan: Well controlled hba1c is 6.5 DM type 2 (diabetes mellitus, type 2) 08/22/2014 01/12/2016 BMI 45.0-49.9, adult 04/21/2014 01/18/2015 Diabetes mellitus type 2, uncontrolled 4 01/18/2015 Biloma 05/01/2013 01/12/2016 GOITER MULTINODULAR, NONTOXIC 12/15/2008 Other abnormal clinical finding 09/08/2008 07/19/2014 Unspecified hypertrophic and atrophic condition of skin 04/25/2007 07/19/2014 Sebaceous cyst 04/16/2007 07/19/2014 Acute cholecystitis 08/11/2006 03/20/2007 Incisional hernia without mention of obstruction or gangrene 08/11/2006 03/20/2007 DIABETES MELLITUS ADULT ONSET 10/24/2005 Hyperlipidemia 10/24/2005 01/12/2016 Internal hemorrhoids without mention of complica tion 01/18/2015 documented as of this encounter (statuses as of 04/19/2022) [facility] of Past illness Narrative* Problem Noted Date Resolved Date Morbid obesity 01/02/2017 12/01/2018 Last Assessment & Plan: Gained a little weight Breast abscess 06/27/2016 12/01/2018 Type 2 diabetes mellitus without complication 12/01/2018 Last Assessment & Plan: Well controlled hba1c is 6.5 DM type 2 (diabetes mellitus, type 2) 08/22/2014 01/12/2016 BMI 45.0-49.9, adult 04/21/2014 01/18/2015 Diabetes mellitus type 2, uncontrolled 4 01/18/2015 Biloma 05/01/2013 01/12/2016 GOITER MULTINODULAR, NONTOXIC 12/15/2008 Other abnormal clinical finding 09/08/2008 07/19/2014 Unspecified hypertrophic and atrophic condition of skin 04/25/2007 07/19/2014 Sebaceous cyst 04/16/2007 07/19/2014 Acute cholecystitis 08/11/2006 03/20/2007 Incisional hernia without mention of obstruction or gangrene 08/11/2006 03/20/2007 DIABETES MELLITUS ADULT ONSET 10/24/2005 Hyperlipidemia 10/24/2005 01/12/2016 Internal hemorrhoids without mention of complica tion 01/18/2015 documented as of this encounter (statuses as of 04/24/2022) [facility] of Past illness Narrative* Problem Noted Date Resolved Date Morbid obesity 01/02/2017 12/01/2018 Last Assessment & Plan: Gained a little weight Breast abscess 06/27/2016 12/01/2018 Type 2 diabetes mellitus without complication 12/01/2018 Last Assessment & Plan: Well controlled hba1c is 6.5 DM type 2 (diabetes mellitus, type 2) 08/22/2014 01/12/2016 BMI 45.0-49.9, adult 04/21/2014 01/18/2015 Diabetes mellitus type 2, uncontrolled 4 01/18/2015 Biloma 05/01/2013 01/12/2016 GOITER MULTINODULAR, NONTOXIC 12/15/2008 Other abnormal clinical finding 09/08/2008 07/19/2014 Unspecified hypertrophic and atrophic condition of skin 04/25/2007 07/19/2014 Sebaceous cyst 04/16/2007 07/19/2014 Acute cholecystitis 08/11/2006 03/20/2007 Incisional hernia without mention of obstruction or gangrene 08/11/2006 03/20/2007 DIABETES MELLITUS ADULT ONSET 10/24/2005 Hyperlipidemia 10/24/2005 01/12/2016 Internal hemorrhoids without mention of complica tion 01/18/2015 documented as of this encounter (statuses as of 05/17/2022) [facility] of [facility] illness Narrative* Problem Noted Date Resolved Date Morbid obesity 01/02/2017 12/01/2018 Last Assessment & Plan: Gained a little weight Breast abscess 06/27/2016 12/01/2018 Type 2 diabetes mellitus without complication 12/01/2018 Last Assessment & Plan: Well controlled hba1c is 6.5 DM type 2 (diabetes mellitus, type 2) 08/22/2014 01/12/2016 BMI 45.0-49.9, adult 04/21/2014 01/18/2015 Diabetes mellitus type 2, uncontrolled 4 01/18/2015 Biloma 05/01/2013 01/12/2016 GOITER MULTINODULAR, NONTOXIC 12/15/2008 Other abnormal clinical finding 09/08/2008 07/19/2014 Unspecified hypertrophic and atrophic condition of skin 04/25/2007 07/19/2014 Sebaceous cyst 04/16/2007 07/19/2014 Acute cholecystitis 08/11/2006 03/20/2007 Incisional hernia without mention of obstruction or gangrene 08/11/2006 03/20/2007 DIABETES MELLITUS ADULT ONSET 10/24/2005 Hyperlipidemia 10/24/2005 01/12/2016 Internal hemorrhoids without mention of complica tion 01/18/2015 documented as of this encounter (statuses as of 05/30/2022) [facility] illness Narrative* Problem Noted Date Resolved Date Morbid obesity 01/02/2017 12/01/2018 Last Assessment & Plan: Gained a little weight Breast abscess 06/27/2016 12/01/2018 Type 2 diabetes mellitus without complication 12/01/2018 Last Assessment & Plan: Well controlled hba1c is 6.5 DM type 2 (diabetes mellitus, type 2) 08/22/2014 01/12/2016 BMI 45.0-49.9, adult 04/21/2014 01/18/2015 Diabetes mellitus type 2, uncontrolled 4 01/18/2015 Biloma 05/01/2013 01/12/2016 GOITER MULTINODULAR, NONTOXIC 12/15/2008 Other abnormal clinical finding 09/08/2008 07/19/2014 Unspecified hypertrophic and atrophic condition of skin 04/25/2007 07/19/2014 Sebaceous cyst 04/16/2007 07/19/2014 Acute cholecystitis 08/11/2006 03/20/2007 Incisional hernia without mention of obstruction or gangrene 08/11/2006 03/20/2007 DIABETES MELLITUS ADULT ONSET 10/24/2005 Hyperlipidemia 10/24/2005 01/12/2016 Internal hemorrhoids without mention of complica tion 01/18/2015 documented as of this encounter (statuses as of 07/26/2022) [facility] History of Past illness Narrative* Problem Noted Date Resolved Date Morbid obesity 01/02/2017 12/01/2018 Last Assessment & Plan: Gained a little weight Breast abscess 06/27/2016 12/01/2018 Type 2 diabetes mellitus without complication 12/01/2018 Last Assessment & Plan: Well controlled hba1c is 6.5 DM type 2 (diabetes mellitus, type 2) 08/22/2014 01/12/2016 BMI 45.0-49.9, adult 04/21/2014 01/18/2015 Diabetes mellitus type 2, uncontrolled 4 01/18/2015 Biloma 05/01/2013 01/12/2016 GOITER MULTINODULAR, NONTOXIC 12/15/2008 Other abnormal clinical finding 09/08/2008 07/19/2014 Unspecified hypertrophic and atrophic condition of skin 04/25/2007 07/19/2014 Sebaceous cyst 04/16/2007 07/19/2014 Acute cholecystitis 08/11/2006 03/20/2007 Incisional hernia without mention of obstruction or gangrene 08/11/2006 03/20/2007 DIABETES MELLITUS ADULT ONSET 10/24/2005 Hyperlipidemia 10/24/2005 01/12/2016 Internal hemorrhoids without mention of complica tion 01/18/2015 documented as of this encounter (statuses as of 07/29/2022) [facility] History of Past illness Narrative* Problem Noted Date Resolved Date Morbid obesity 01/02/2017 12/01/2018 Last Assessment & Plan: Gained a little weight Breast abscess 06/27/2016 12/01/2018 Type 2 diabetes mellitus without complication 12/01/2018 Last Assessment & Plan: Well controlled hba1c is 6.5 DM type 2 (diabetes mellitus, type 2) 08/22/2014 01/12/2016 BMI 45.0-49.9, adult 04/21/2014 01/18/2015 Diabetes mellitus type 2, uncontrolled 4 01/18/2015 Biloma 05/01/2013 01/12/2016 GOITER MULTINODULAR, NONTOXIC 12/15/2008 Other abnormal clinical finding 09/08/2008 07/19/2014 Unspecified hypertrophic and atrophic condition of skin 04/25/2007 07/19/2014 Sebaceous cyst 04/16/2007 07/19/2014 Acute cholecystitis 08/11/2006 03/20/2007 Incisional hernia without mention of obstruction or gangrene 08/11/2006 03/20/2007 DIABETES MELLITUS ADULT ONSET 10/24/2005 Hyperlipidemia 10/24/2005 01/12/2016 Internal hemorrhoids without mention of complica tion 01/18/2015 documented as of this encounter (statuses as of 09/02/2022) [facility] History of Past illness Narrative* Problem Noted Date Resolved Date Morbid obesity 01/02/2017 12/01/2018 Last Assessment & Plan: Gained a little weight Breast abscess 06/27/2016 12/01/2018 Type 2 diabetes mellitus without complication 12/01/2018 Last Assessment & Plan: Well controlled hba1c is 6.5 DM type 2 (diabetes mellitus, type 2) 08/22/2014 01/12/2016 BMI 45.0-49.9, adult 04/21/2014 01/18/2015 Diabetes mellitus type 2, uncontrolled 4 01/18/2015 Biloma 05/01/2013 01/12/2016 GOITER MULTINODULAR, NONTOXIC 12/15/2008 Other abnormal clinical finding 09/08/2008 07/19/2014 Unspecified hypertrophic and atrophic condition of skin 04/25/2007 07/19/2014 Sebaceous cyst 04/16/2007 07/19/2014 Acute cholecystitis 08/11/2006 03/20/2007 Incisional hernia without mention of obstruction or gangrene 08/11/2006 03/20/2007 DIABETES MELLITUS ADULT ONSET 10/24/2005 Hyperlipidemia 10/24/2005 01/12/2016 Internal hemorrhoids without mention of complica tion 01/18/2015 documented as of this encounter (statuses as of 12/26/2022) [facility] History of Past illness Narrative* Problem Noted Date Resolved Date Morbid obesity 01/02/2017 12/01/2018 Last Assessment & Plan: Gained a little weight Breast abscess 06/27/2016 12/01/2018 Type 2 diabetes mellitus without complication 12/01/2018 Last Assessment & Plan: Well controlled hba1c is 6.5 DM type 2 (diabetes mellitus, type 2) 08/22/2014 01/12/2016 BMI 45.0-49.9, adult 04/21/2014 01/18/2015 Diabetes mellitus type 2, uncontrolled 4 01/18/2015 Biloma 05/01/2013 01/12/2016 GOITER MULTINODULAR, NONTOXIC 12/15/2008 Other abnormal clinical finding 09/08/2008 07/19/2014 Unspecified hypertrophic and atrophic condition of skin 04/25/2007 07/19/2014 Sebaceous cyst 04/16/2007 07/19/2014 Acute cholecystitis 08/11/2006 03/20/2007 Incisional hernia without mention of obstruction or gangrene 08/11/2006 03/20/2007 DIABETES MELLITUS ADULT ONSET 10/24/2005 Hyperlipidemia 10/24/2005 01/12/2016 Internal hemorrhoids without mention of complica tion 01/18/2015 documented as of this encounter (statuses as of 03/04/2023) [facility] History of Past illness Narrative* Problem Noted Date Diagnosed Date Resolved Date Morbid obesity 01/02/2017 12/01/2018 Last Assessment & Plan: Gained a little weight Breast abscess 06/27/2016 12/01/2018 Type 2 diabetes mellitus without complication 07/13/2012/01/2018 Last Assessment & Plan: Well controlled hba1c is 6.5 DM type 2 (diabetes mellitus, type 2) 08/22/2014 01/12/2016 BMI 45.0-49.9, adult 04/21/2014 015 Diabetes mellitus type 2, uncontrolled 12/09/2013 01/18/2015 Biloma 05/01/2013 01/12/2016 GOITER MULTINODULAR, NONTOXIC 12/15/2008 12/01/2018 Other abnormal clinical finding 09/08/2008 07/19/2014 Unspecified hypertrophic and atrophic condition of skin 04/25/2007 07/19/2014 Sebaceous cyst 04/16/2007 07/19/2014 Acute cholecystitis 08/11/2006 03/20/20 07 Incisional hernia without me ntion of obstruction or gangrene 08/11/2006 03/20/2007 DIABETES MELLITUS ADULT ONSET 10/24/2005 12/09/2013 Hyperlipidemia 10/24/2005 01/12/2016 Internal hemorrhoids without mention of complication 01/18/2015 documented as of this encounter (statuses as of 06/05/2023) [facility] History of Past illness Narrative* Problem Noted Date Diagnosed Date Resolved Date Morbid obesity 01/02/2017 12/01/2018 Last Assessment & Plan: Gained a little weight Breast abscess 06/27/2016 12/01/2018 Type 2 diabetes mellitus without complication 07/13/2012/01/2018 Last Assessment & Plan: Well controlled hba1c is 6.5 DM type 2 (diabetes mellitus, type 2) 08/22/2014 01/12/2016 BMI 45.0-49.9, adult 04/21/2014 015 Diabetes mellitus type 2, uncontrolled 12/09/2013 01/18/2015 Biloma 05/01/2013 01/12/2016 GOITER MULTINODULAR, NONTOXIC 12/15/2008 12/01/2018 Other abnormal clinical finding 09/08/2008 07/19/2014 Unspecified hypertrophic and atrophic condition of skin 04/25/2007 07/19/2014 Sebaceous cyst 04/16/2007 07/19/2014 Acute cholecystitis 08/11/2006 03/20/20 07 Incisional hernia without me ntion of obstruction or gangrene 08/11/2006 03/20/2007 DIABETES MELLITUS ADULT ONSET 10/24/2005 12/09/2013 Hyperlipidemia 10/24/2005 01/12/2016 Internal hemorrhoids without mention of complication 01/18/2015 documented as of this encounter (statuses as of 07/25/2023) [facility] History of Past illness Narrative* Problem Noted Date Diagnosed Date Resolved Date Morbid obesity 01/02/2017 12/01/2018 Last Assessment & Plan: Gained a little weight Breast abscess 06/27/2016 12/01/2018 Type 2 diabetes mellitus without complication 07/13/2012/01/2018 Last Assessment & Plan: Well controlled hba1c is 6.5 DM type 2 (diabetes mellitus, type 2) 08/22/2014 01/12/2016 BMI 45.0-49.9, adult 04/21/2014 015 Diabetes mellitus type 2, uncontrolled 12/09/2013 01/18/2015 Biloma 05/01/2013 01/12/2016 GOITER MULTINODULAR, NONTOXIC 12/15/2008 12/01/2018 Other abnormal clinical finding 09/08/2008 07/19/2014 Unspecified hypertrophic and atrophic condition of skin 04/25/2007 07/19/2014 Sebaceous cyst 04/16/2007 07/19/2014 Acute cholecystitis 08/11/2006 03/20/20 07 Incisional hernia without me ntion of obstruction or gangrene 08/11/2006 03/20/2007 DIABETES MELLITUS ADULT ONSET 10/24/2005 12/09/2013 Hyperlipidemia 10/24/2005 01/12/2016 Internal hemorrhoids without mention of complication 01/18/2015 documented as of this encounter (statuses as of 08/03/2023) [facility] History of Past illness Narrative* Problem Noted Date Diagnosed Date Resolved Date Morbid obesity 01/02/2017 12/01/2018 Last Assessment & Plan: Gained a little weight Breast abscess 06/27/2016 12/01/2018 Type 2 diabetes mellitus without complication 07/13/2012/01/2018 Last Assessment & Plan: Well controlled hba1c is 6.5 DM type 2 (diabetes mellitus, type 2) 08/22/2014 01/12/2016 BMI 45.0-49.9, adult 04/21/2014 015 Diabetes mellitus type 2, uncontrolled 12/09/2013 01/18/2015 Biloma 05/01/2013 01/12/2016 GOITER MULTINODULAR, NONTOXIC 12/15/2008 12/01/2018 Other abnormal clinical finding 09/08/2008 07/19/2014 Unspecified hypertrophic and atrophic condition of skin 04/25/2007 07/19/2014 Sebaceous cyst 04/16/2007 07/19/2014 Acute cholecystitis 08/11/2006 03/20/20 07 Incisional hernia without me ntion of obstruction or gangrene 08/11/2006 03/20/2007 DIABETES MELLITUS ADULT ONSET 10/24/2005 12/09/2013 Hyperlipidemia 10/24/2005 01/12/2016 Internal hemorrhoids without mention of complication 01/18/2015 documented as of this encounter (statuses as of 08/29/2023) 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 note* Diagnosis Type 2 diabetes mellitus without complication, without long-term current use of insulin (HCC)- Primary Atrial fibrillation, unspecified type (HCC) Palpitations Essential hypertension, benign Face lesion Unspecified disorder of skin and subcutaneous tissue documented in this encounter [facility] note* Diagnosis Atrial fibrillation, unspecified type (HCC)- Primary Aortic valve stenosis, etiology of cardiac valve disease unspecified Palpitations Tachycardia Tachycardia, unspecified documented in this encounter [facility] note* Diagnosis Type 2 diabetes mellitus without complication, without long-term current use of insulin (HCC)- Primary Atrial fibrillation, unspecified type (HCC) Essential hypertension, benign Hypothyroidism, unspecified type documented in this encounter 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 note* Diagnosis Chronic low back pain with right-sided sciatica, unspecified back pain laterality- Primary Anxiety Anxiety state, unspecified Type 2 diabetes mellitus without complication, without long-term current use of insulin (HCC) Permanent atrial fibrillation (HCC) Atrial fibrillation Essential hypertension, benign Decreased hearing, unspecified laterality Dizziness Dizziness and giddiness Acute diastolic (congestive) heart failure (HCC) Type 2 diabetes mellitus with stage 3a chronic kidney disease, without long-term current use of insulin (HCC) Stage 3a chronic kidney disease (HCC) [facility] Chronic midline low back pain with right-sided sciatica Right hip pain Pain in joint, pelvic region and thigh documented in this encounter [facility] for referral (narrative)* Outpatient Procedure (Routine) - Pending Review Specialty Diagnoses / Procedures Referred By Contac t Referred To [facility] Diagnoses Atrial fibrillation, unspecified type (HCC) Tachycardia Procedures ECG COMPLETE ECG ROUTINE ECG W/LEAST 12 LDS W/I&R Lolly Zamarripa APRN.CNP [address] [place] [address] [facility] [address] [place] [address] Referral ID Status Reason Start Date Expiration Date Visits Requested Visits Authorized [id number] Pending Review Auto-Generat ed Referral 04/24/2022 04/24/[address] [facility] for referral (narrative)* Diagnostic Procedure Only (Routine) - Closed Specialty Diagnoses / Procedures Referred By Contac t Referred To Contact XR IMAGING Diagnoses Right hip pain Procedures XR HIP GENERAL 3V PELV/AP/LAT RIGHT RADEX HIP UNILATERAL WITH PELVIS 2-3 VIEWS Lolly Zamarripa APRN.CNP [address] [place] [address] [place] [address] Referral ID Status Reason Start Date Expiration Date V isits Requested Visits Authorized [id number] Closed Auto-Generate d Referral 07/17/2023 08/15/2024 1 1 * Diagnostic Procedure Only (Routine) - Closed Specialty Diagnoses / Procedures Referred By Contac t Referred To Contact XR IMAGING Diagnoses Chronic midline low back pain with right-sided sciatica Procedures XR LUMBAR GENERAL 3V AP/LAT/L5-S1 RADEX SPINE LUMBOSACRAL 2/3 VIEWS Lolly Zamarripa APRN.WINDING LATHE OPERATOR [address] [place] [address] [place] [address] Referral ID Status Reason Start Date Expiration Date V isits Requested Visits Authorized [id number] Closed Auto-Generate d Referral 07/17/2023 08/15/[address] [facility] for visit Narrative* Diagnostic Procedure Only (Routine) - Closed Specialty Diagnoses / Procedures Referred By Contac t Referred To Contact XR IMAGING Diagnoses Right hip pain Procedures XR HIP GENERAL 3V PELV/AP/LAT RIGHT RADEX HIP UNILATERAL WITH PELVIS 2-3 VIEWS Lolly Zamarripa APRN.WINDING LATHE OPERATOR [address] [place] [address] [place] [address] Referral ID Status Reason Start Date Expiration Date V isits Requested Visits Authorized [id number] Closed Auto-Generate d Referral 07/17/2023 08/15/2024 1 1 [facility] Advance Directives No Advanced Directives Records FoundDocuments on File Type Date Recorded Patient On Site Soil Evaluator Expl anation Advance Directive(s) 05/27/2016 7:15 AM Documents on File Type Date Recorded Patient On Site Soil Evaluator Expl anation Advance Directive(s) 05/27/2016 7:15 AM Reason for Referral Specialty Diagnoses / Procedures Referred By Contac t Referred To Contact Cardiology Diagnoses Atrial fibrillation, unspecified type (HCC) Palpitations Procedures CONSULT TO CARDIOLOGY OFFICE/OUTPATIENT NEW [facility] MDM 60-74 MINUTES Lolly Zamarripa APRN.WINDING LATHE OPERATOR [address] [place] [address] Referral ID Status Reason Start Date Expiration Date Visits Requested Visits Authorized [id number] Authorized PCP Requested Referral 04/08/2022 04/08/2023 1 1 Specialty Diagnoses / Procedures Referred By Contac t Referred To Contact Dermatology Diagnoses Face lesion Procedures CONSULT TO DERMATOLOGY Lolly Zamarripa APRN.WINDING LATHE OPERATOR [address] [place] [address] Referral ID Status Reason Start Date Expiration Date Visits Requested Visits Authorized [id number] Ref Not Required PCP Requested Referral 04/08/2022 04/08/2023 1 1 Specialty Diagnoses / Procedures Referred By Contac t Referred To [facility] Diagnoses Atrial fibrillation, unspecified type (HCC) Palpitations Procedures ECHO ECHO TTHRC R-T 2D W/WOM-MODE COMPL SPEC&COLR D Lolly Zamarripa APRN.WINDING LATHE OPERATOR [address] [place] [address] [facility] [address] [place] [address] Referral ID Status Reason Start Date Expiration Date Visits Requested Visits Authorized [id number] Authorized Auto-Generat ed Referral 04/08/2022 04/08/2023 1 1 Specialty Diagnoses / Procedures Referred By Contac t Referred To Contact Ent - Otolaryngology Diagnoses Hearing loss of right ear, unspecified hearing loss type Procedures CONSULT TO ENT OFFICE/OUTPATIENT NEW HIGH MDM 60-74 MINUTES Lolly Zamarripa, NESTOR.WINDING LATHE OPERATOR [address] [place] [address] Referral ID Status Reason Start Date Expiration Date Visits Requested Visits Authorized [id number] Authorized PCP Requested Referral 3 08/27/2024 1 1 Summary Purpose Family History No Family History Records Found Additional Source Comments Source Comments (unrecognize d section and content) In the event this informatio n is protected by the Federal Confidentiality of Alcohol and Drug Abuse Patient Records regulations: The Federal rules restrict any use of the information to criminally investigate or prosecute any alcohol or drug abuse patient.[facility] the event this information is protected by the Federal Confidentiality of Alcohol and Drug Abuse Patient Records regulations: The Federal rules restrict any use of the information to criminally investigate or prosecute any alcohol or drug abuse patient.[facility] the event this information is protected by the Federal Confidentiality of Alcohol and Drug Abuse Patient Records regulations: The Federal rules restrict any use of the information to criminally investigate or prosecute any alcohol or drug abuse patient.[facility] the event this information is protected by the Federal Confidentiality of Alcohol and Drug Abuse Patient Records regulations: The Federal rules restrict any use of the information to criminally investigate or prosecute any alcohol or drug abuse patient.[facility] the event this information is protected by the Federal Confidentiality of Alcohol and Drug Abuse Patient Records regulations: The Federal rules restrict any use of the information to criminally investigate or prosecute any alcohol or drug abuse patient.[facility] the event this information is protected by the Federal Confidentiality of Alcohol and Drug Abuse Patient Records regulations: The Federal rules restrict any use of the information to criminally investigate or prosecute any alcohol or drug abuse patient.[facility] the event this information is protected by the Federal Confidentiality of Alcohol and Drug Abuse Patient Records regulations: The Federal rules restrict any use of the information to criminally investigate or prosecute any alcohol or drug abuse patient.[facility] the event this information is protected by the Federal Confidentiality of Alcohol and Drug Abuse Patient Records regulations: The Federal rules restrict any use of the information to criminally investigate or prosecute any alcohol or drug abuse patient.[facility] the event this information is protected by the Federal Confidentiality of Alcohol and Drug Abuse Patient Records regulations: The Federal rules restrict any use of the information to criminally investigate or prosecute any alcohol or drug abuse patient.[facility] the event this information is protected by the Federal Confidentiality of Alcohol and Drug Abuse Patient Records regulations: The Federal rules restrict any use of the information to criminally investigate or prosecute any alcohol or drug abuse patient.[facility] the event this information is protected by the Federal Confidentiality of Alcohol and Drug Abuse Patient Records regulations: The Federal rules restrict any use of the information to criminally investigate or prosecute any alcohol or drug abuse patient.[facility] the event this information is protected by the Federal Confidentiality of Alcohol and Drug Abuse Patient Records regulations: The Federal rules restrict any use of the information to criminally investigate or prosecute any alcohol or drug abuse patient.[facility] the event this information is protected by the Federal Confidentiality of Alcohol and Drug Abuse Patient Records regulations: The Federal rules restrict any use of the information to criminally investigate or prosecute any alcohol or drug abuse patient.[facility] the event this information is protected by the Federal Confidentiality of Alcohol and Drug Abuse Patient Records regulations: The Federal rules restrict any use of the information to criminally investigate or prosecute any alcohol or drug abuse patient.[facility] the event this information is protected by the Federal Confidentiality of Alcohol and Drug Abuse Patient Records regulations: The Federal rules restrict any use of the information to criminally investigate or prosecute any alcohol or drug abuse patient.[facility] Reason for Visit (unrecogniz ed section and content) Reason Comments Recheck 3 month follow up Reason Comments Results Reason Comments Recheck review Echo Reason Comments F/U Diabetes 3 Month Reason Comments Appointment Reason Onset Date Comments Refill Request 12/25/2022 Reason Comments Medicare Wellness Exam hearing issues, c /o issues with metoprolol and heartrate today is 98-114 h/o a-fib Reason Comments Recheck 3 month follow up Reason Comments Follow Up Care Teams (unrecognized sec tion and content) [employer]orer Coreroom Relationship Specialty Start Date End Date Mihaela Ybarra MD [address] [place] [address] PCP - General Internal Medicine 05/22/16 [employer] Laborer Coreroom Relationship Specialty Start Date End Date Mihaela Ybarra MD [address] [place] [address] PCP - General Internal Medicine 05/22/16 Foundry Laborer Coreroom Relationship Specialty Start Date End Date Mihaela Ybarra MD [address] [place] [address] PCP - General Internal Medicine 05/22/16 Foundry Laborer Coreroom Relationship Specialty Start Date End Date Mihaela Ybarra MD [address] [place] [address] PCP - General Internal Medicine 05/22/16 Foundry Laborer Coreroom Relationship Specialty Start Date End Date Mihaela Ybarra MD [address] [place] [address] PCP - General Internal Medicine 05/22/16 Foundry Laborer Coreroom Relationship Specialty Start Date End Date Mihaela Ybarra MD [address] [place] [address] PCP - General Internal Medicine 05/22/16 Foundry Laborer Coreroom Relationship Specialty Start Date End Date Mihaela Ybarra MD [address] [place] [address] PCP - General Internal Medicine 05/22/16 Foundry Laborer Coreroom Relationship Specialty Start Date End Date Mihaela Ybarra MD [address] [place] [address] PCP - General Internal Medicine 05/22/16 Foundry Laborer Coreroom Relationship Specialty Start Date End Date Mihaela Ybarra MD [address] [place] [address] PCP - General Internal Medicine 05/22/16 Foundry Laborer Coreroom Relationship Specialty Start Date End Date Mihaela Ybarra MD [address] [place] [address] PCP - General Internal Medicine 05/22/16 Foundry Laborer Coreroom Relationship Specialty Start Date End Date Mihaela Ybarra MD [address] [place] [address] PCP - General Internal Medicine 05/22/16 Foundry Laborer Coreroom Relationship Specialty Start Date End Date Mihaela Ybarra MD [address] [place] [address] PCP - General Internal Medicine 05/22/16 INFORMATION SOURCE (unrecogn ized section and content) FOR RECORDS PERTAINING TO PATIENTS WHO ARE OR HAVE BEEN ENROLLED IN A CHEMICAL DEPENDENCY/SUBSTANCEABUSE PROGRAM, SOME INFORMATION MAY BE OMITTED. This clinical summary was aggregated from multiple sources. Caution should be exercised in using it in the provision of clinical care. This summary normalizes information from multiple sources, and as a consequence, information in this document may materially change the coding, format and clinical context of patient data. In addition, data may be omitted in some cases. CLINICAL DECISIONS SHOULD BE BASED ON THE PRIMARY CLINICAL RECORDS. [employer] provides no warranty or guarantee of the accuracy or completeness of information in this document.
[2023-10-24 14:14] LABS: CREATININE FINGERSTICK < 1.0 mg/dL (0.55-1.02); EGFR FINGERSTICK > 60.0000 mL/min (>60)
== END | disposition home or self-care (01) ==
LOC: MRI 13:05
PROVIDERS: PCP Internal Medicine; Referring Provider Otolaryngology; Visit Provider Otolaryngology
DX: R42 Dizziness and giddiness (principal)
CPT/HCPCS: 70553

== ENCOUNTER 2023-11-10 09:55 | Outpatient (RCR) | payer MEDICARE, OTHER, SELFPAY ==
[2023-11-03 12:13] LABS: International Normalized Ratio 1.4; Prothrombin Time (Protime)PT. 16.7 SECONDS (11.7-14.9)
[2023-11-10 13:04] LABS: International Normalized Ratio 2.1; Prothrombin Time (Protime)PT. 23.5 SECONDS (11.7-14.9)
== END 2023-11-27 18:00 | disposition home or self-care (01) ==
LOC: MTLAB 09:55
PROVIDERS: PCP Internal Medicine; Referring Provider Physician Assistant Medical; Visit Provider Physician Assistant Medical
DX: I48.91 Unspecified atrial fibrillation (principal); Z79.01 Long term (current) use of anticoagulants
CPT/HCPCS: 36415; 85610

== ENCOUNTER 2024-03-26 08:38 | Emergency (ER) | payer MEDICARE, OTHER, SELFPAY ==
[2024-03-26 08:40] VITALS: BP 125/104; PULSE 86; RESP 18; TEMP 35.8; O2SAT 95
--- NOTE | 2024-03-26 09:52 | EDS_ITS ---
HPI History of Present Illness Chief Complaint: Flank Pain Informant: patient Narrative Narrative: Patient is an 83-year-old female with a history of atrial fibrillation on Eliquis as well as diabetes presenting with atraumatic left-sided back pain. Patient has been worsening over 3 to 4 days. It was significantly bad today which brought her in. She did not take anything for pain prior to arrival. She previously tried some tramadol she had at home with no relief. She states is in her left back and radiates around to her flank. It is worse with any type of movement and better when she sits still. She denies any associated shortness of breath or difficulty breathing. She denies any urinary symptoms such as blood in her urine, frequency of urination or dysuria. Denies any fever or chills. Denies any abdominal pain, nausea or vomiting. No change in bowel habits. Denies any history of any back problems. No other complaints or concerns reported at this time. [facility] Medical History Atrial fibrillation Nonrheumatic aortic (valve) stenosis Nonrheumatic mitral valve disorder Essential hypertension HTN (hypertension) GI bleed Home Medications ?Medication ?Instructions ?Recorded ?Last Taken ?Type levothyroxine 150 mcg tablet 150 mcg PO DAILY THYROID 02/02/19 02/02/19 History tramadol 50 mg tablet 50 mg PO DAILY 04/08/23 Unknown History vitamin B complex (B 1 tab PO DAILY 04/08/23 Unknown History Complex-Vitamin B12 tablet) metoprolol succinate 50 mg 50 mg PO BID #180 tabs 04/29/23 Unknown Rx tablet,extended release 24 hr furosemide 40 mg tablet 40 mg PO .COMPLEX #180 tabs 04/30/23 Unknown Rx apixaban 5 mg tablet 5 mg PO BID #60 tabs 11/11/23 Unknown Rx metformin 500 mg tablet,extended mg PO 11/11/23 Unknown History release 24 hr Allergy/AdvReac Type Severity Reaction Status Date / Time gabapentin Allergy Unknown Unknown Verified 03/26/24 08:40 meloxicam AdvReac Unknown Unknown Verified 03/26/24 08:40 [id number] Reductase AdvReac Unknown Unknown Verified 03/26/24 08:40 Inhibitor Family History Mother Cancer Colon CVA (cerebral vascular accident) Hypertension Father Myocardial infarction Surgical History History of umbilical hernia repair Hx of right knee surgery History of tonsillectomy History of bilateral cataract extraction History of tubal ligation History of cholecystectomy Social History Smoking Status: Former smoker alcohol intake: never substance use type: does not use caffeine: Yes Type: carbonated beverages Number of servings: 1 ROS ROS ED Constitutional Constitutional ED: Denies chills or fever(s) Cardiovascular Cardiovascular: Denies chest pain Respiratory/Chest Respiratory/Chest: Denies cough or dyspnea Gastrointestinal Gastrointestinal: Denies abdominal pain, nausea or vomiting Genitourinary Genitourinary ED: Denies dysuria, hematuria or urinary frequency Musculoskeletal Musculoskeletal: Reports back pain; Denies myalgias or neck pain Integumentary Denies rash Neurologic Neurologic: Denies headache(s), paresthesias or weakness Hematologic/Lymphatic Hematologic/Lymphatic: Reports easy bleeding and other Details: On Eliquis EXAM Physical Exam Const Vital Signs: 03/26/24 08:40 Temperature 96.5 F L Temperature Source Temporal Pulse Rate 86 Respiratory Rate 18 Blood Pressure 125/104 H Blood Pressure Mean 111 Pulse Ox 95 Oxygen Delivery Method Room Air Positive well nourished and well developed General Appearance ED: well developed and NAD HEENT Reports moist mucous membranes Eyes PERRL Neck supple Chest Wall inspection of chest normal and palpation of chest normal Cardio regular rate and regular rhythm GI normal to inspection, nondistended, normoactive bowel sounds and non-tender Back/Spine no CVA tenderness Back/Spine Narrative: reproducible tender to palpation at approximately the level of L1 in the paraspinal region. No overlying rash. Thoracic Spine / Upper Back: Negative for thoracic spinal tenderness or paraspinal muscle tenderness Lumbar Spine / Lower Back: Negative for lumbar spinal tenderness Extremity normal to inspection General Extremety ED: Negative for edema or tenderness General Extremity: Negative for edema Neuro oriented x3 Sensorium / Orientation: alert Motor Exam: Negative for general weakness Psych mental status grossly normal Skin no rashes or lesions noted and no wounds MDM MDM MDM Narrative Medical decision making narrative: Patient is evaluated for atraumatic left back pain. Discharge Plan Triage Chief Complaint: Flank Pain ED Provider: María Ritchie Dx/Rx/DC Orders Prescriptions: No Action tramadol 50 mg tablet 50 mg PO DAILY vitamin B complex [B Complex-Vitamin B12] Tablet 1 tab PO DAILY metformin 500 mg tablet extended release 24 hr PO Patient Comments: Take 1 tablet by mouth daily with breakfast. apixaban 5 mg tablet 5 mg PO BID Qty: 60 11RF levothyroxine 150 tablet 150 mcg PO DAILY metoprolol succinate 50 mg tablet extended release 24 hr 50 mg PO BID Qty: 180 3RF furosemide 40 mg tablet 40 mg PO .COMPLEX Qty: 180 3RF Rx Instructions: 40 mg orally daily: may need to take twice daily, 4 hours apart as needed for swelling, shortness of breath or weight gain; Primary Care Provider: Mihaela Ybarra Referrals: Mihaela Ybarra MD [Primary Care Provider] - Print Language: Khmer
[2024-03-26 10:01] LABS: Mucous, Urine 0 SEEN /hpf (<or=2+)
[2024-03-26 10:11] LABS: Color, Urine Yellow (Yellow); Glucose, Dipstick Normal (Normal); Ketone-Dipstick Negative (Negative); Leukocyte Esterase-Dipstick 100 /ul (Negative); Nitrite-Dipstick Positive (Negative); Occult Blood-Urine 10 /ul (Negative); Protein-Dipstick 30 mg/dl (Negative); Urine Bilirubin Dipstick Negative (Negative); Urine Clarity Cloudy (Clear); Urine Urobilinogen Normal (Normal)
[2024-03-26 10:16] LABS: Absolute Lymphocyte Count 1.32 X10^3/uL (0.83-4.51); Absolute Neutrophil Count 3.7 X10^3/uL (2.0-7.7); Basophil# 0.03 X10^3/uL; Basophil% 0.5 % (0-1); Eosinophils% 1.8 % (0-5); Hematocrit 45.6 % (37-47); Hemoglobin 14.6 g/dL (12.0-15.0); Lymphocyte # 1.32 X10^3/ul (0.83-4.51); Lymphocyte % 23.4 % (19-41); Mean Corpuscular Hgb 31.7 pg (27.0-32.0); Mean Corpuscular Volume 99.1 fL (81-99); Mean Platelet Vol. 9.9 fl (6.2-12.0); Monocyte# 0.43 X10^3/uL; Monocyte% 7.6 % (0-10); NRBC Flagged by Analyzer 0 % (0-5); Neutrophil # 3.74 X10^3/uL (2.7-7.7); Neutrophil % 66.5 % (47-70); Platelet Count 155 K/mm3 (150-450); RBC Distribution Width CV 12.5 % (11.6-14.6); RBC Distribution Width SD 45.3 fl (35.1-43.9); White Blood Count 5.6 K/mm3 (4.4-11.0)
[2024-03-26 10:19] LABS: Bacteria 2+ /hpf (None Seen); Squamous Epithelial Cells - UA 0-5 SEEN /hpf (5-10); White Blood Cells 10-25 SEEN /hpf (0-5)
[2024-03-26 10:20] VITALS: BMI 36.5
[2024-03-26 10:20] LABS: Red Blood Cells-Urine 0 SEEN /hpf (0-5); Transitional Epithelial - Ur 0-5 SEEN /hpf (0-5)
[2024-03-26] MEDS: Lidocaine 5% Patch 1 PATCH TOPICAL (10:21)
[2024-03-26] MEDS: Morphine 4 MG/ML Syringe IV (10:21)
[2024-03-26 10:32] LABS: Anion Gap 5 (5-15); BUN 20 mg/dL (7-18); Calcium,Total 9.6 mg/dL (8.5-10.1); Chloride 101 mmol/L (98-107); Creatinine, Serum 1.05 mg/dL (0.55-1.02); EST Glomerular Filtration Rate 53 mL/min (>60); Est Glom Filt Rate - Afr Amer 64 mL/min (>60); Estimated Creatinine Clearance 47.42 ml/min; Glucose 137 mg/dL (74-106); Potassium 4.4 mmol/L (3.5-5.1); Sodium Level 139 mmol/L (136-145)
[2024-03-26 10:39] VITALS: BP 154/93; PULSE 94; RESP 19; TEMP 36.4; O2SAT 95
--- NOTE | 2024-03-26 11:09 | CT_ITS ---
INDICATION: left flank pain EXAMINATION: CT ABDOMEN AND PELVIS WITHOUT CONTRAST - CT Abdomen And Pelvis W/O Contrast Injection TECHNIQUE: Helically acquired images were obtained of the abdomen and pelvis without oral or IV contrast. The protocol utilizes one or more of the following dose reduction techniques: automated exposure control, adjustment of mA and/or kV according to patient size,and/or use of iterative reconstruction technique. IV Contrast dosage and agent: None. Oral contrast: None. RADIATION DOSAGE (If Supplied By Facility): CTDIvol = ( 24.00 ) mGy, DLP = ( 1443.18 ) mGycm COMPARISON: September 12, [address] of the chest dated February 08, 2019 FINDINGS: LOWER CHEST: Lung bases are clear. There are coronary artery calcifications. There are mitral annulus calcifications. The lack of intravenous contrast limits the evaluation of solid visceral organs. LIVER: Homogeneous. No focal mass. GALLBLADDER AND BILIARY TREE: No calcified gallstones. No gallbladder distension or wall edema. No intra- or extrahepatic biliary ductal dilation. PANCREAS: There are scattered calcifications throughout the pancreas suggestive of a history of pancreatitis no pancreatic ductal dilatation is visualized.. SPLEEN: Normal size without focal cystic or solid mass. ADRENAL GLANDS: No nodules. KIDNEYS AND URETERS: Normal renal size and position. There are bilateral renal cysts. No hydronephrosis. PERITONEUM: No ascites or free air. No other fluid collection. BOWEL: No stomach or bowel distension. There are diverticula arising from the colon. There is nonvisualization of the appendix. No focal inflammatory change. LYMPH NODES: No enlarged mesenteric or retroperitoneal lymph nodes. VESSELS: Aorta is non-dilated. There are peripheral calcifications of the abdominal aorta. URINARY BLADDER: Unremarkable. REPRODUCTIVE ORGANS: No pelvic masses. ABDOMINAL WALL: No discrete abdominal or pelvic wall hernia. BONES: There are degenerative changes of the lumbar spine. CT/Abdomen/Pelvis without Cont IMPRESSION: No acute intra-abdominal process. Colonic diverticulosis. Atherosclerosis. Degenerative changes of the lumbar spine. Electronically Signed: Yoon Roy MD at 11:49 EDT ,
[2024-03-26 12:00] VITALS: BP 153/126; PULSE 102; RESP 14; TEMP 36.3; O2SAT 94
--- NOTE | 2024-03-26 13:11 | ED.RN ---
PT WILL [employer] HELPER SH[employer] ABX AT PHARMACY
[2024-03-26 13:12] VITALS: BP 124/98; PULSE 95; RESP 18; TEMP 36.7; O2SAT 98
== END 2024-03-26 13:13 | disposition home or self-care (01) ==
PROVIDERS: Emergency Provider Emergency Medicine; PCP Internal Medicine; Visit Provider Emergency Medicine
DX: N39.0 Urinary tract infection, site not specified (principal); I48.91 Unspecified atrial fibrillation; E11.9 Type 2 diabetes mellitus without complications; R10.9 Unspecified abdominal pain; I10 Essential (primary) hypertension; Z79.01 Long term (current) use of anticoagulants; Z79.84 Long term (current) use of oral hypoglycemic drugs; Z79.890 Hormone replacement therapy; Z79.899 Other long term (current) drug therapy; Z87.891 Personal history of nicotine dependence
CPT/HCPCS: 74176; 80048; 81001; 85025; 87086; 87088; 96374; 99283; A4216

== ENCOUNTER 2024-05-06 19:15 | Emergency (ER) | payer MEDICARE, OTHER, SELFPAY ==
[2024-05-06 19:16] VITALS: BP 154/94; PULSE 92; RESP 16; TEMP 35.7; O2SAT 94
[2024-05-06 20:46] VITALS: BMI 46.5
--- NOTE | 2024-05-06 22:18 | CT_ITS ---
INDICATION: left flank pain EXAMINATION: CT ABDOMEN AND PELVIS WITHOUT CONTRAST - CT Abdomen And Pelvis W/O Contrast Injection TECHNIQUE: Helically acquired images were obtained of the abdomen and pelvis without oral or IV contrast. A radiation dose optimization technique was used for this scan. IV Contrast dosage and agent: None. Oral contrast: None. COMPARISON: 03/26/2024 FINDINGS: LOWER CHEST: Lung bases are clear. No cardiomegaly or pericardial effusion. Small hiatal hernia. LIVER: Homogeneous. No focal mass. GALLBLADDER AND BILIARY TREE: No calcified gallstones. No gallbladder distension or wall edema. No intra- or extrahepatic biliary ductal dilation. PANCREAS: No focal cystic or solid mass. SPLEEN: Normal size without focal cystic or solid mass. ADRENAL GLANDS: No nodules. KIDNEYS AND URETERS: No nephrolithiasis or hydronephrosis. Stable small cortical cysts. PERITONEUM: No ascites or free air. BOWEL: No evidence of acute appendicitis. No stomach or bowel distension. Sigmoid diverticulosis with short segment of wall thickening and pericolonic stranding. LYMPH NODES: No enlarged mesenteric or retroperitoneal lymph nodes. VESSELS: Aorta is non-dilated. URINARY BLADDER: Unremarkable. REPRODUCTIVE ORGANS: No pelvic masses. ABDOMINAL WALL: No discrete abdominal or pelvic wall hernia. BONES: No acute or aggressive abnormality. CT/Abdomen/Pelvis without Cont IMPRESSION: Acute sigmoid diverticulitis. No perforation or pelvic abscess. Electronically Signed: Angelo Long MD at 23:26 EDT ,
[2024-05-06 22:28] VITALS: PULSE 82; RESP 17; O2SAT 95
[2024-05-06 22:32] LABS: Bacteria 0 SEEN /hpf (None Seen); Mucous, Urine 0 SEEN /hpf (<or=2+); Red Blood Cells-Urine 0 SEEN /hpf (0-5); Squamous Epithelial Cells - UA 0 SEEN /hpf (5-10); White Blood Cells 0 SEEN /hpf (0-5)
[2024-05-06] MEDS: Ondansetron 4 MG/2 ML Vial IV (22:44)
[2024-05-06] MEDS: 0.9% Normal Saline (500mL Bag) 500 ML 999 ML IV (22:44)
[2024-05-06] MEDS: Orphenadrine 60 MG/2 ML Ampul IV (22:44)
[2024-05-06] MEDS: Morphine 4 MG/ML Syringe IV (22:44)
[2024-05-06 22:45] LABS: Absolute Lymphocyte Count 1.84 X10^3/uL (0.83-4.51); Absolute Neutrophil Count 5.5 X10^3/uL (2.0-7.7); Basophil# 0.04 X10^3/uL; Basophil% 0.5 % (0-1); Eosinophil# 0.13 X10^3/uL; Eosinophils% 1.6 % (0-5); Hematocrit 42.8 % (37-47); Hemoglobin 13.5 g/dL (12.0-15.0); Lymphocyte # 1.84 X10^3/ul (0.83-4.51); Lymphocyte % 22.7 % (19-41); Mean Corp Hgb Conc 31.5 g/dL (32-36); Mean Corpuscular Hgb 31.4 pg (27.0-32.0); Mean Corpuscular Volume 99.5 fL (81-99); Monocyte# 0.61 X10^3/uL; Monocyte% 7.5 % (0-10); NRBC Flagged by Analyzer 0 % (0-5); Neutrophil # 5.45 X10^3/uL (2.7-7.7); Neutrophil % 67.5 % (47-70); Platelet Count 150 K/mm3 (150-450); RBC Distribution Width CV 12.5 % (11.6-14.6); RBC Distribution Width SD 45.6 fl (35.1-43.9); White Blood Count 8.1 K/mm3 (4.4-11.0)
[2024-05-06 22:45] LABS: Color, Urine Yellow (Yellow); Glucose, Dipstick Normal (Normal); Ketone-Dipstick Negative (Negative); Leukocyte Esterase-Dipstick 25 /ul (Negative); Nitrite-Dipstick Negative (Negative); Occult Blood-Urine Negative /ul (Negative); Protein-Dipstick 15 mg/dl (Negative); Urine Bilirubin Dipstick Negative (Negative); Urine Clarity Clear (Clear); Urine Urobilinogen Normal (Normal); Urine pH 6.5 (5.0 - 8.0)
[2024-05-06 22:58] LABS: Anion Gap 5 (5-15); BUN 17 mg/dL (7-18); Calcium,Total 9.3 mg/dL (8.5-10.1); Chloride 106 mmol/L (98-107); EST Glomerular Filtration Rate 56 mL/min (>60); Est Glom Filt Rate - Afr Amer 68 mL/min (>60); Estimated Creatinine Clearance 57.14 ml/min; Glucose 118 mg/dL (74-106); Potassium 4.3 mmol/L (3.5-5.1); Sodium Level 140 mmol/L (136-145)
--- NOTE | 2024-05-06 23:57 | EX.ED.DYSGE1 ---
HPI History of Present Illness Chief Complaint: Back Informant: patient and spouse/S.O. Narrative Narrative: Patient is an 83-year-old female with past medical history of [id number] type 2 diabetes hypertension paroxysmal atrial fibrillation currently on Eliquis and hypothyroidism. She states in the last 1 to 2 days she has noticed pain in the left mid/low back region. She states there was no trauma or excessive activity. She denies any fevers or chills. She states there is been no dysuria or hematuria. She does report that pain came on while at rest but she has noticed that is also worsened with certain movements such as extension and rotation. She states she feels the pain has been slowly worsening and secondary to this comes in for evaluation [facility] Medical History Atrial fibrillation Nonrheumatic aortic (valve) stenosis Nonrheumatic mitral valve disorder Essential hypertension HTN (hypertension) GI bleed Home Medications ?Medication ?Instructions ?Recorded ?Last Taken ?Type levothyroxine 150 mcg tablet 150 mcg PO DAILY THYROID 02/02/19 02/02/19 History tramadol 50 mg tablet 50 mg PO DAILY 04/08/23 Unknown History vitamin B complex (B 1 tab PO DAILY 04/08/23 Unknown History Complex-Vitamin B12 tablet) metoprolol succinate 50 mg 50 mg PO BID #180 tabs 04/29/23 Unknown Rx tablet,extended release 24 hr furosemide 40 mg tablet 40 mg PO .COMPLEX #180 tabs 04/30/23 Unknown Rx apixaban 5 mg tablet 5 mg PO BID #60 tabs 11/11/23 Unknown Rx metformin 500 mg tablet,extended mg PO 11/11/23 Unknown History release 24 hr cephalexin 500 mg capsule 500 mg PO Q6 #28 CAPSULES 03/26/24 Unknown Rx hydrocodone-acetaminophen 5-325mg 1 tab PO Q8H PRN Pain 3 days #10 03/26/24 Unknown Rx 5mg-325mg TABLETS amoxicillin 875 mg-potassium 1 tab PO BID 7 days #14 tabs 05/07/24 Unknown Rx clavulanate 125 mg tablet methocarbamol 500 mg tablet 500 mg PO 4X/DAY PRN Muscle 05/07/24 Unknown Rx pain/spasm #40 tabs ondansetron 4 mg disintegrating 4 mg PO TID PRN nausea and 05/07/24 Unknown Rx tablet vomiting #21 tabs oxycodone-acetaminophen 5 mg-325 1 tab PO Q6H PRN pain 3 days #12 05/07/24 Unknown Rx mg tablet (Percocet) tabs Allergy/AdvReac Type Severity Reaction Status Date / Time gabapentin Allergy Unknown Unknown Verified 05/06/24 19:16 meloxicam AdvReac Unknown Unknown Verified 05/06/24 19:16 [id number] Reductase AdvReac Unknown Unknown Verified 05/06/24 19:16 Inhibitor Family History Mother Cancer Colon CVA (cerebral vascular accident) Hypertension Father Myocardial infarction Surgical History History of umbilical hernia repair Hx of right knee surgery History of tonsillectomy History of bilateral cataract extraction History of tubal ligation History of cholecystectomy Social History Smoking Status: Former smoker alcohol intake: never substance use type: does not use caffeine: Yes Type: carbonated beverages Number of servings: 1 ROS ROS ED Constitutional Constitutional ED: Denies chills or fever(s) ENT ENT ED: Denies sore throat Cardiovascular Cardiovascular: Denies chest pain Respiratory/Chest Respiratory/Chest: Denies cough or dyspnea Gastrointestinal Gastrointestinal: Reports abdominal pain; Denies diarrhea, nausea or vomiting Genitourinary Genitourinary ED: Denies dysuria, hematuria or urinary frequency Musculoskeletal Musculoskeletal: Reports back pain Integumentary Denies rash Neurologic Neurologic: Denies headache(s) or paresthesias Hematologic/Lymphatic Hematologic/Lymphatic: Reports easy bleeding and easy bruising EXAM Physical Exam Const Vital Signs: 05/06/24 19:16 05/06/24 22:28 Temperature 96.3 F L Temperature Source Temporal Pulse Rate 92 82 Respiratory Rate 16 17 Blood Pressure 154/94 H Blood Pressure Mean 114 Pulse Ox 94 95 Oxygen Delivery Method Room Air Room Air Positive well nourished, well developed and obese General Appearance ED: well developed; Negative for pallor Nutritional Appearance: obese HEENT Reports moist mucous membranes HEENT Narrative: No tongue or lip swelling no oral lesions no airway edema or compromise No signs of infection noted in the posterior pharynx Eyes PERRL and EOMs intact bilaterally General Eye ED: Negative for scleral icterus Neck supple Resp normal respiratory effort and clear to auscultation bilaterally Cardio regular rate and regular rhythm Rate: other Other Details: Heart is regular rate and rhythm Radial and carotid pulses are equal and symmetric GI non-distended GI Narrative: Abdomen is soft and nondistended with normal active bowel sounds. There is pain with palpation along the left lower and mid abdomen without voluntary guarding or rigidity. No pulsatile mass or fluid wave Auscultation: normoactive bowel sounds Palpation: soft Back/Spine Back/Spine Narrative: No bony deformity or step-off of the thoracic or lumbar spine no midline tenderness to palpation There is left CVA pain noted that does worsen with palpation as well as extension and rotation Extremity normal to inspection Neuro oriented x3, CN's II-XII intact bilaterally and no sensory deficits noted Sensorium / Orientation: alert Motor Exam: strength 5/5 throughout Psych mental status grossly normal Skin no rashes or lesions noted Skin Narrative: No overlying soft tissue changes to suggest trauma or infection General Skin Exam: Negative for jaundice or pallor MDM MDM MDM Narrative Medical decision making narrative: Patient arrived to the ER hypertensive but otherwise with stable vitals. She reported pain in the left back without trauma or excessive activity. Differential diagnosis is for kidney stone versus UTI versus pyelonephritis versus lumbosacral strain versus herpes zoster or cellulitis or abscess. With left-sided abdominal discomfort there is also concern for intestinal infection such as diverticulitis or colitis. She did not have loss of bowel or bladder control nor does she use IV drugs and therefore my concern for cauda equina or epidural abscess is low. With potential for pyelonephritis versus kidney stone being higher on the differential I did like to perform basic laboratory studies with a noncontrast CT scan. Labs revealed no clinically significant changes such as acute kidney injury or UTI/pyelonephritis or leukocytosis. CT scan showed no kidney stone or renal mass but did document acute sigmoid diverticulitis without perforation or abscess. This does correlate with her left-sided abdominal pain. On reevaluation she is resting comfortably and feels much better after provided pain medication. As she is not septic from the acute diverticulitis does not have abscess or perforation this is simple diverticulitis and does not need admitted to the hospital and she can be given symptomatic medications and is otherwise safe for discharge History & Record Review Discussion w/independent historian: Patient and Significant other Lab Data Attestation: I reviewed the patient's lab results. Labs: Laboratory Results - last 24 hr 05/06/24 05/06/24 21:20 22:30 WBC 8.1 RBC 4.30 Hgb 13.5 Hct 42.8 MCV 99.5 H MCH 31.4 MCHC 31.5 L RDW Std Deviation 45.6 H RDW Coeff of Pattie 12.5 Plt Count 150 MPV 10.0 Immature Gran % (Auto) 0.200 Neut % (Auto) 67.5 Lymph % (Auto) 22.7 [place] % (Auto) 7.5 Eos % (Auto) 1.6 Baso % (Auto) 0.5 Absolute Neuts (auto) 5.5 Absolute Lymphs (auto) 1.84 Nucleated RBC % 0 Sodium 140 Potassium 4.3 Chloride 106 Carbon Dioxide 29.0 Anion Gap 5 BUN 17 Creatinine 1.00 Estim Creat Clear Calc 57.14 Est GFR (MDRD) Af Amer 68 Est GFR (MDRD) Non-Af 56 L BUN/Creatinine Ratio 17.0 Glucose 118 H Calcium 9.3 Urine Color Yellow Urine Clarity Clear Urine pH 6.5 Ur Specific [place] 1.010 Urine Protein 15 H Urine Glucose (UA) Normal Urine Ketones Negative Urine Occult Blood Negative Urine Nitrite Negative Urine Bilirubin Negative Urine Urobilinogen Normal Ur Leukocyte Esterase 25 H Urine RBC 0 SEEN Urine WBC 0 SEEN Ur Squamous Epith Cells 0 SEEN Urine Bacteria 0 SEEN Urine Mucus 0 SEEN Radiography Diagnostic Testing: Clinical Impression(s) from Imaging Studies Abdomen/Pelvis CT 05/06/24 22:18 IMPRESSION: Acute sigmoid diverticulitis. No perforation or pelvic abscess. Electronically Signed: Angelo Long MD at 23:26 EDT Reading Location ID and State: [facility] / [place] Tel , Service support , Discharge Plan Triage Chief Complaint: Back ED Provider: Juan C Shipman Dx/Rx/DC Orders Clinical Impression: Diverticulitis of sigmoid colon, long-term current use of anticoagulant, Diabetes mellitus, type II, Essential hypertension, Paroxysmal atrial fibrillation, Acute myofascial strain of lumbosacral region Instructions: ED Back Sprain/Strain, ED Diverticulitis Prescriptions: New amoxicillin-pot clavulanate 875-125 mg tablet 1 tab PO BID 7 Days Qty: 14 0RF ondansetron 4 mg tablet,disintegrating 4 mg PO TID PRN (Reason: nausea and vomiting) Qty: 21 0RF methocarbamol 500 mg tablet 500 mg PO 4X/DAY PRN (Reason: Muscle pain/spasm) Qty: 40 0RF oxycodone-acetaminophen [Percocet] 5-325 mg tablet 1 tab PO Q6H PRN (Reason: pain) 3 Days Qty: 12 0RF No Action tramadol 50 mg tablet 50 mg PO DAILY vitamin B complex [B Complex-Vitamin B12] Tablet 1 tab PO DAILY metformin 500 mg tablet extended release 24 hr PO Patient Comments: Take 1 tablet by mouth daily with breakfast. apixaban 5 mg tablet 5 mg PO BID Qty: 60 11RF levothyroxine 150 tablet 150 mcg PO DAILY cephalexin 500 mg capsule 500 mg PO Q6 Qty: 28 0RF hydrocodone-acetaminophen 5-325 mg tablet 1 tab PO Q8H PRN (Reason: Pain) 3 Days Qty: 10 0RF metoprolol succinate 50 mg tablet extended release 24 hr 50 mg PO BID Qty: 180 3RF furosemide 40 mg tablet 40 mg PO .COMPLEX Qty: 180 3RF Rx Instructions: 40 mg orally daily: may need to take twice daily, 4 hours apart as needed for swelling, shortness of breath or weight gain; Primary Care Provider: Mihaela Ybarra Referrals: Mihaela Ybarra MD [Primary Care Provider] - Activity Restrictions/Additional Instructions: Your CT scan today showed infection of your colon known as diverticulitis. Take the Augmentin/antibiotic as directed to resolve this. Continue your home medications as directed by your doctor and return to the ER should you have any further concerns. Please continue to stretch and heat your low back as well as this can help reduce pain and speed healing. Print Language: Icelandic Disposition Disposition: Home, Self Care
[2024-05-07] MEDS: Amox/Clavulanate 875 MG Tablet PO (00:14)
[2024-05-07 00:18] VITALS: BP 158/103; PULSE 99; RESP 19; TEMP 36.7; O2SAT 95
== END 2024-05-07 00:19 | disposition home or self-care (01) ==
PROVIDERS: Emergency Provider Emergency Medicine; PCP Internal Medicine; Visit Provider Emergency Medicine
DX: S39.012A Strain of muscle, fascia and tendon of lower back, initial encounter (principal); I48.0 Paroxysmal atrial fibrillation; E11.9 Type 2 diabetes mellitus without complications; K57.32 Diverticulitis of large intestine without perforation or abscess without bleeding; I10 Essential (primary) hypertension; Z87.891 Personal history of nicotine dependence; Z79.01 Long term (current) use of anticoagulants; E03.9 Hypothyroidism, unspecified; E66.9 Obesity, unspecified; X58.XXXA Exposure to other specified factors, initial encounter
CPT/HCPCS: 74176; 80048; 81001; 85025; 96361; 96374; 96375; 99284; J7030; A4216; J2405

== ENCOUNTER 2024-07-13 08:41 | Inpatient (IN) | payer MEDICARE, OTHER, SELFPAY ==
[2024-07-13] VITALS (11 sets, daily range): BP systolic 134–156; BP diastolic 86–104; PULSE 85–132; RESP 16–22; TEMP 36.2–37.2; O2SAT 88–98; BMI 52.9; BMI 48.2
--- NOTE | 2024-07-13 09:18 | EDS_ITS ---
HPI History of Present Illness Chief Complaint: General Illness [facility] Medical History Atrial fibrillation Nonrheumatic aortic (valve) stenosis Nonrheumatic mitral valve disorder Essential hypertension HTN (hypertension) GI bleed Home Medications ?Medication ?Instructions ?Recorded ?Last Taken ?Type levothyroxine 150 mcg tablet 150 mcg PO DAILY THYROID 02/02/19 07/12/24 History tramadol 50 mg tablet 50 mg PO DAILY PRN PAIN 04/08/23 Unknown History apixaban 5 mg tablet 5 mg PO BID BLOOD THINNER #60 tabs 11/11/23 07/12/24 Rx metformin 500 mg tablet,extended 500 mg PO BREAKFAST DIABETES 11/11/23 07/12/24 History release 24 hr methocarbamol 500 mg tablet 500 mg PO 4X/DAY PRN MUSCLE 05/07/24 Unknown Rx PAIN/SPASMS #40 tabs ondansetron 4 mg disintegrating 4 mg PO TID PRN NAUSEA/VOMITIMNG 05/07/24 Unknown Rx tablet #21 tabs ergocalciferol (vitamin D2) 1,250 1,250 mcg PO UD SUPPLEMENT 07/13/24 Unknown History mcg (50,000 unit) capsule furosemide 40 mg tablet 40 mg PO DAILY EDEMA 07/13/24 07/12/24 History metoprolol succinate 50 mg 50 mg PO DAILY PRN BLOOD PRESSURE 07/13/24 Unknown History tablet,extended release 24 hr Allergy/AdvReac Type Severity Reaction Status Date / Time gabapentin Allergy Unknown Unknown Verified 07/13/24 08:42 meloxicam AdvReac Unknown Unknown Verified 07/13/24 08:42 Hiaoguy-POR-DuV Reductase AdvReac Unknown Unknown Verified 07/13/24 08:42 Inhibitor Family History Mother Cancer Colon CVA (cerebral vascular accident) Hypertension Father Myocardial infarction Surgical History History of umbilical hernia repair Hx of right knee surgery History of tonsillectomy History of bilateral cataract extraction History of tubal ligation History of cholecystectomy Social History Smoking Status: Former smoker alcohol intake: never substance use type: does not use caffeine: Yes Type: carbonated beverages Number of servings: 1 EXAM Physical Exam Const Vital Signs: 07/13/24 08:42 07/13/24 10:41 07/13/24 12:00 Temperature 98.9 F Temperature Source Oral Pulse Rate 105 H 110 H 132 H Respiratory Rate 18 Blood Pressure 152/101 H 145/86 H 153/104 H Blood Pressure Mean 118 105 120 Pulse Ox 92 91 Oxygen Delivery Method Room Air 07/13/24 12:02 Temperature Temperature Source Pulse Rate Respiratory Rate Blood Pressure Blood Pressure Mean Pulse Ox 88 Oxygen Delivery Method [facility] MDM MDM Narrative Medical decision making narrative: HISTORY OF PRESENT ILLNESS: 83-year-old female presents with concern for general illness. She also endorsed a headache, general weakness and cough. She states I just do not feel well. Symptoms began over the last several weeks. No sick contacts. Patient denies sudden onset or thunderclap headache, denies maximal intensity within 1 minute, vomiting, neck pain, stiffness, changes in vision, fever, history malignancy, syncope, or seizures associated with headache. She notes cough productive of clear sputum. REVIEW OF SYSTEMS: Pertinent positives: Malaise, headache, weakness, cough Pertinent negatives: Focal weakness, falls, syncope, chest pain, shortness of breath PHYSICAL EXAM: Nursing triage notes reviewed, Vital signs reviewed Constitutional: please see mdm HENT: MMM Eyes: Pupils equal round and reactive to light, Extraocular muscles intact Neck: No stridor, no JVD, full neck ROM Lungs: Clear to auscultation, No wheezing or rales. No increased work of breathing, no conversational dyspnea, no accessory muscle use, no nasal flaring. No respiratory distress noted Heart: Regular rate and rhythm, No murmurs, No rubs and No gallops, 2+ distal pulses (radial, femoral, posterior tibial) in all extremities Abdomen: Soft, there is no tenderness, rigidity, rebound or guarding, no obvious peritoneal signs, no palpable pulsatile abdominal masses, no auscultated abdominal bruit : No CVAT Extremities: No edema Neuro: Alert and oriented x3, neuro exam at baseline, cranial nerves II through XII are intact. No pain with extraocular muscle movement. There is negative test of skew. 5 of 5 strength in upper and lower extremities in flexion extension. Intact sensation to light touch in upper and lower extremity dermatomes. No truncal or extremity ataxia. No dysdiadochokinesia. Normal gait. 2+ reflexes in upper and lower extremities. No meningeal signs. Negative Babinski. NIH of 0. Skin: No rash or lesions noted MEDICAL DECISION MAKING: Chief Complaint: As per HPI External records reviewed: Reviewed the patient's allergies, problem list, vital signs, current medications, recent labs images outpatient inpatient notes Factors affecting care A-fib on Eliquis, type 2 diabetes, hyperlipidemia, hypertension, obesity, chronic anemia Social determinants of health: none History obtained from others: Patient's Consults: Internal medicine MDM Narrative: Patient was initially hemodynamically stable, afebrile and nontoxic-appearing. Saturating 92% room air. Exam with rales in the bases. No lower extremity edema. I considered the following differential diagnosis: Viral illness (COVID/flu), ACS, arrhythmia, anemia, pneumonia, electrolyte disturbance, intracranial hemorrhage, UTI I obtained a broad lab and imaging workup to further elucidate etiology of the patient's complaint ALL IMAGES (IF OBTAINED) HAVE BEEN PERSONALLY REVIEWED AND INTERPRETED BY MYSELF. EKG with A-fib with RVR, normal axis, no intervals, no STEMI High-sensitivity troponin is negative, no evidence of myocardial ischemia CBC without leukocytosis, severe anemia, no thrombocytopenia. BMP without evidence of significant electrolyte abnormalities, no anion gap, no acute kidney injury. LFTs show no evidence of hepatobiliary pathology. COVID RSV flu analysis is positive for COVID CT scan of the brain was obtained given the patient's headache and advanced age to rule out ICH or other intracranial normality. CT scan of the brain was negative. Urinalysis shows no evidence of urinary inflammation suggestive of UTI Chest x-ray (reviewed, read person by myself) with evidence of right greater than left infiltrates. Radiologist read is bilateral infiltrates. This could represent either commune acquired pneumonia or COVID-pneumonia. Will give empiric antibiotics. Upon further discussion with hospitalist who is convinced this is COVID-pneumonia recommended Decadron. Patient was also given a dose of metoprolol to treat her A-fib with RVR. The synthesis of the patient's history, physical exam, labs images suggest COVID-19 induced hypoxia possibly secondary bacterial pneumonia. Given patient's new onset hypoxia and new oxygen requirement she will require admission. Discussed with Dr. Ye who accepted the patient. The patient and/or family, caregivers express understanding. The patient and/or family, caregivers agrees with the plan. Shared decision making: I will have a discussion with the patient and or visitors regarding risk/bene fits of further testing or admission. They will be made aware of of the risk/benefits inherent in this decision they will be given the opportunity to voice understanding. Total critical care time today provided was at least 35 minutes. This excludes separately billable procedures. Critical care time (if documented) is secondary to the patient having high probability of clinically significant/life threatening deterioration in the patient's condition which required my urgent intervention. Impression: 1. General Illness 2. COVID-19 3. Hypoxia Dispo: Admit This note was generated with [facility] dictation software. It may contain incorrect words, spelling, and punctuation that were not noted in review of the chart prior to signing. Lab Data Labs: Laboratory Results - last 24 hr 07/13/24 07/13/24 09:55 11:06 WBC 6.4 RBC 4.35 Hgb 13.6 Hct 44.7 MCV 102.8 H MCH 31.3 MCHC 30.4 L RDW Std Deviation 49.1 H RDW Coeff of Pattie 12.9 Plt Count 151 MPV 10.0 Sodium 140 Potassium 4.5 Chloride 103 Carbon Dioxide 30.0 Anion Gap 6 BUN 17 Creatinine 0.98 Estim Creat Clear Calc 60.93 Est GFR (MDRD) Af Amer 69 Est GFR (MDRD) Non-Af 57 L BUN/Creatinine Ratio 17.3 Glucose 165 H Calcium 9.3 Total Bilirubin 0.60 AST 23 ALT 22 Alkaline Phosphatase 90 Troponin I High Sens 16 Total Protein 7.1 Albumin 3.3 Globulin 3.8 Albumin/Globulin Ratio 0.9 Urine Color Yellow Urine Clarity Cloudy Urine pH 6.0 Ur Specific [place] 1.020 Urine Protein 100 H Urine Glucose (UA) Normal Urine Ketones Negative Urine Occult Blood 10 H Urine Nitrite Negative Urine Bilirubin Negative Urine Urobilinogen 1 H Ur Leukocyte Esterase 100 H Urine RBC 0 SEEN Urine WBC 5-10 SEEN Ur Squamous Epith Cells 5-10 SEEN Urine Bacteria 2+ Urine Mucus 1+ Radiography Diagnostic Testing: Clinical Impression(s) from Imaging Studies Brain CT 07/13/24 09:42 IMPRESSION: No acute intracranial process identified. Electronically Signed: Nidia Goldman MD at 10:54 EDT , Chest X-Ray 07/13/24 10:15 IMPRESSION: Mild opacities in the mid to lower lungs, concerning for pneumonia or pneumonitis. Electronically Signed: Nidia Goldman MD at 10:55 EDT , Discharge Plan Disposition Disposition: Acute Care Hospital [facility] Discharge Date/Time: 07/13/24 13:19
--- NOTE | 2024-07-13 09:42 | CT_ITS ---
HISTORY: Headache. TECHNIQUE: Multiple axial images were obtained of the head without intravenous contrast. A radiation dose optimization technique was used for this scan. 258 images. COMPARISON: MR 10/24/2023. FINDINGS: BRAIN PARENCHYMA: Mild chronic small vessel ischemic gliosis. No acute intra-axial hemorrhage. CSF SPACES: Chronic mild volume loss. No midline shift or other significant mass effect. No acute extra-axial hemorrhage. OTHER: Intact calvarium. No significant air fluid levels in the paranasal sinuses or mastoid air cells. Bilateral lens resections. CT/Brain/Head without Contrast IMPRESSION: No acute intracranial process identified. Electronically Signed: Nidia Goldman MD at 10:54 EDT ,
--- NOTE | 2024-07-13 09:42 | EKG12_ITS ---
Test Reason : GENERAL Blood Pressure : / mmHG Vent. Rate : 120 BPM Atrial Rate : 000 BPM P-R Int : 000 ms QRS Dur : 074 ms QT Int : 310 ms P-R-T Axes : 000 025 030 degrees QTc Int : 438 ms Atrial fibrillation with rapid ventricular response Low voltage QRS Abnormal ECG Confirmed by Jose L Cha ([id number]), editor house organ DEIRDRE DALY ([id number]) on 07/14/2024 9:25:07 AM Referred By: Confirmed By:Jose L Cha
[2024-07-13 10:05] LABS: Hematocrit 44.7 % (37-47); Hemoglobin 13.6 g/dL (12.0-15.0); Mean Corp Hgb Conc 30.4 g/dL (32-36); Mean Corpuscular Hgb 31.3 pg (27.0-32.0); Mean Corpuscular Volume 102.8 fL (81-99); Platelet Count 151 K/mm3 (150-450); RBC Distribution Width CV 12.9 % (11.6-14.6); RBC Distribution Width SD 49.1 fl (35.1-43.9); Red Blood Count 4.35 M/mm3 (4.2-5.4); White Blood Count 6.4 K/mm3 (4.4-11.0)
[2024-07-13] MEDS: Acetaminophen 325 MG Tablet PO (10:10)
--- NOTE | 2024-07-13 10:15 | RAD_ITS ---
HISTORY: Cough. TECHNIQUE: XR Chest 1 View. COMPARISON: 06/24/2022. FINDINGS: CARDIOMEDIASTINAL BORDERS: Cardiac silhouette again upper limits of normal size. Mediastinal contour unchanged with calcification of the aortic knob. LUNGS: Mild opacities in the mid to lower lungs. Chronic elevation of the right hemidiaphragm. PLEURA: No pleural effusion or pneumothorax seen. OSSEOUS STRUCTURES: Degenerative change. RAD/Chest 1 View (Portable) IMPRESSION: Mild opacities in the mid to lower lungs, concerning for pneumonia or pneumonitis. Electronically Signed: Nidia Goldman MD at 10:55 EDT ,
[2024-07-13 11:13] LABS: Red Blood Cells-Urine 0 SEEN /hpf (0-5)
[2024-07-13 11:16] LABS: Color, Urine Yellow (Yellow); Glucose, Dipstick Normal (Normal); Ketone-Dipstick Negative (Negative); Leukocyte Esterase-Dipstick 100 /ul (Negative); Nitrite-Dipstick Negative (Negative); Occult Blood-Urine 10 /ul (Negative); Protein-Dipstick 100 mg/dl (Negative); Urine Bilirubin Dipstick Negative (Negative); Urine Clarity Cloudy (Clear); Urine Urobilinogen 1 mg/dl (Normal)
[2024-07-13 11:28] LABS: Bacteria 2+ /hpf (None Seen); Mucous, Urine 1+ /hpf (<or=2+); Squamous Epithelial Cells - UA 5-10 SEEN /hpf (5-10); White Blood Cells 5-10 SEEN /hpf (0-5)
[2024-07-13 12:18] LABS: ALB/GLOB Ratio 0.9 RATIO (0.9-2.4); AST(SGOT) 23 U/L (15-37); Alanine Aminotransfer ALT/SGPT 22 U/L (13-56); Albumin, Serum 3.3 g/dL (3.2-5.0); Alkaline Phosphatase 90 U/L (45-117); Anion Gap 6 (5-15); BUN 17 mg/dL (7-18); BUN/Creat Ratio 17.3 RATIO (10-20); Calcium,Total 9.3 mg/dL (8.5-10.1); Chloride 103 mmol/L (98-107); Creatinine, Serum 0.98 mg/dL (0.55-1.02); EST Glomerular Filtration Rate 57 mL/min (>60); Est Glom Filt Rate - Afr Amer 69 mL/min (>60); Estimated Creatinine Clearance 60.93 ml/min; Globulin 3.8 g/dL (2.2-4.2); Glucose 165 mg/dL (74-106); Potassium 4.5 mmol/L (3.5-5.1); Protein, Total 7.1 g/dL (6.4-8.2); Sodium Level 140 mmol/L (136-145); Troponin-I HS 16 pg/mL (3.0-54.0)
[2024-07-13] MEDS: Azithromycin 500 MG in Dextrose 5%-Water (250mL Bag) 250 ML 250 MG IV (12:51)
[2024-07-13] MEDS: Metoprolol Tartrate 5 MG/5 ML Vial IV (12:57)
[2024-07-13] MEDS: dexAMETHasone 10 MG/ML Vial 6 MG IV (12:57)
[2024-07-13] MEDS: Ceftriaxone 1 GM/50 ML BAG IV (14:33)
[2024-07-13] MEDS: Remdesivir 200 MG in 0.9% Normal Saline (250mL Bag) 210 ML 250 MG IV (15:44)
[2024-07-13] MEDS: 0.9% Saline Lock 10 ML Syringe IV (18:06)
--- NOTE | 2024-07-13 18:40 | HP.PCM.HOS_ITS ---
HPI - General General Date of Admission: 07/13/24 Date of Service: 07/13/24 Chief Complaint: Malaise, headache HPI Narrative Eh GILLIAM, is a 83 F who presents to the emergency room at [facility] with complaints of malaise, headache, nonproductive cough and overall fatigue which is been present over the last 5 days. Patient states that she only received 1 COVID vaccination years ago, she has never had COVID to her knowledge. 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 Patient denies any fever or chills. Workup in the emergency room revealed a normal CBC, chemistry profile was abnormal for an elevated glucose at 165, chest x-ray showed mild opacities in the mid to lower lungs, patient's pulse ox on room air was 92 at rest and dropped to 88 on ambulation. Patient's COVID test was positive. Patient's heart rate was elevated in the emergency room, she appeared to be in atrial fibrillation and was given a dose of metoprolol. Patient will be admitted to PCU for COVID-19 pneumonia with hypoxia, she will be given IV remdesivir and p.o. dexamethasone. Patient will be monitored due to her chronic atrial fibrillation. She will be seen by PT [facility] Medical History Atrial fibrillation Nonrheumatic aortic (valve) stenosis Nonrheumatic mitral valve disorder Essential hypertension HTN (hypertension) GI bleed Home Medications ?Medication ?Instructions ?Recorded ?Last Taken ?Type levothyroxine 150 mcg tablet 150 mcg PO DAILY THYROID 02/02/19 07/12/24 History tramadol 50 mg tablet 50 mg PO DAILY PRN PAIN 04/08/23 Unknown History apixaban 5 mg tablet 5 mg PO BID BLOOD THINNER #60 tabs 11/11/23 07/12/24 Rx metformin 500 mg tablet,extended 500 mg PO BREAKFAST DIABETES 11/11/23 07/12/24 History release 24 hr methocarbamol 500 mg tablet 500 mg PO 4X/DAY PRN MUSCLE 05/07/24 Unknown Rx PAIN/SPASMS #40 tabs ondansetron 4 mg disintegrating 4 mg PO TID PRN NAUSEA/VOMITIMNG 05/07/24 Unknown Rx tablet #21 tabs ergocalciferol (vitamin D2) 1,250 1,250 mcg PO UD SUPPLEMENT 07/13/24 Unknown History mcg (50,000 unit) capsule furosemide 40 mg tablet 40 mg PO DAILY EDEMA 07/13/24 07/12/24 History metoprolol succinate 50 mg 50 mg PO DAILY PRN BLOOD PRESSURE 07/13/24 Unknown History tablet,extended release 24 hr Allergy/AdvReac Type Severity Reaction Status Date / Time gabapentin Allergy Unknown Unknown Verified 07/13/24 08:42 meloxicam AdvReac Unknown Unknown Verified 07/13/24 08:42 Yrllfhr-SIT-JbP Reductase AdvReac Unknown Unknown Verified 07/13/24 08:42 Inhibitor Family History Mother Cancer Colon CVA (cerebral vascular accident) Hypertension Father Myocardial infarction Surgical History History of umbilical hernia repair Hx of right knee surgery History of tonsillectomy History of bilateral cataract extraction History of tubal ligation History of cholecystectomy Social History Smoking Status: Former smoker alcohol intake: never substance use type: does not use caffeine: Yes Type: carbonated beverages Number of servings: 1 ROS Constitutional Constitutional: Reports fatigue, malaise and weakness; Denies anorexia, change in weight, chills, fever(s) or night sweats Eyes Eyes: Denies blurry vision, change in vision, discharge from eye(s) or eye pain Cardiovascular Cardiovascular: Denies chest pain, claudication, dyspnea on exertion, edema or palpitations Respiratory/Chest Respiratory/Chest: Denies cough, dyspnea, hemoptysis, shortness of breath at rest or shortness of breath with exertion Gastrointestinal Gastrointestinal: Denies abdominal pain, constipation, diarrhea, hematemesis, hematochezia, melena, nausea or vomiting Genitourinary Genitourinary: Denies dysuria, hematuria, urinary frequency, urinary hesitancy, urinary incontinence or urinary urgency Musculoskeletal Musculoskeletal: Denies back pain, joint pain, joint stiffness, joint swelling, myalgias or neck pain Neurologic Neurologic: Denies abnormal gait, abnormal speech, dizziness, focal weakness, headache(s), loss of vision, numbness, other visual disturbances, paresthesias, syncope or tingling Psychiatric Psychiatric: Denies anxiety, cognitive impairment, depression, irritability, mood swings or suicidal ideation Endocrine Endocrinology: Denies change in body appearance, cold intolerance, excessive sweating, heat intolerance, polydipsia or polyuria Hematologic/Lymphatic Hematologic/Lymphatic: Denies none, anemia, easy bleeding, easy bruising or lymphadenopathy Allergic/Immunologic Allergic/Immunologic: Denies rhinitis, urticaria, eczemia or asthma Vital Signs Vital Signs Vital Signs: 07/13/24 08:42 07/13/24 10:41 07/13/24 12:00 Temperature 98.9 F Temperature Source Oral Pulse Rate 105 H 110 H 132 H Respiratory Rate 18 Respiratory Effort Respiratory Depth Respiratory Pattern Blood Pressure 152/101 H 145/86 H 153/104 H Blood Pressure Mean 118 105 120 Blood Pressure Source Blood Pressure Position Blood Pressure Location Pulse Ox 92 91 Oxygen Delivery Method Room Air Oxygen Flow Rate (L/min) Fraction of Inspired Oxygen (FIO2) 07/13/24 12:02 07/13/24 13:18 07/13/24 14:03 Temperature 98.4 F 97.2 F L Temperature Source Oral Pulse Rate 119 H 85 Respiratory Rate 22 H 18 Respiratory Effort Respiratory Depth Respiratory Pattern Blood Pressure 141/102 H 134/94 H Blood Pressure Mean 115 107 Blood Pressure Source Monitor Blood Pressure Position Semi-Fowlers Blood Pressure Location Right Forearm Pulse Ox 88 92 98 Oxygen Delivery Method Nasal Cannula Oxygen Flow Rate (L/min) 3 Fraction of Inspired Oxygen (FIO2) 07/13/24 14:03 07/13/24 14:13 07/13/24 14:24 Temperature 97.2 F L Temperature Source Oral Pulse Rate 85 Respiratory Rate 18 Respiratory Effort Normal Non-Labored Respiratory Depth Normal Respiratory Pattern Normal Blood Pressure 134/94 H Blood Pressure Mean 107 Blood Pressure Source Blood Pressure Position Blood Pressure Location Pulse Ox 98 96 Oxygen Delivery Method Nasal Cannula Nasal Cannula Nasal Cannula Oxygen Flow Rate (L/min) 3 2 2 Fraction of Inspired Oxygen (FIO2) 07/13/24 14:52 Temperature Temperature Source Pulse Rate Respiratory Rate Respiratory Effort Respiratory Depth Respiratory Pattern Blood Pressure Blood Pressure Mean Blood Pressure Source Blood Pressure Position Blood Pressure Location Pulse Ox Oxygen Delivery Method Nasal Cannula Oxygen Flow Rate (L/min) Fraction of Inspired Oxygen (FIO2) 97 Weight Weight: 127.4 kg Body Mass Index (BMI) 48.2 Physical Exam Const alert, oriented x3 and no apparent distress Constitutional Narrative: Patient is morbidly obese General Appearance: cooperative, well kempt and well developed Orientation / Consciousness: awake, oriented to person, oriented to place and oriented to time HEENT normocephalic, head/scalp atraumatic and moist oral mucous membranes Eyes PERRL, EOMs intact bilaterally and conjunctivae normal Neck supple, no JVD, thyroid normal and no carotid bruits General: trachea midline Resp normal respiratory effort, no retractions, no use of accessory muscles and clear to auscultation bilaterally Auscultation: Negative for rales, rhonchi or wheezes Cardio S1 normal heart sound, S2 normal heart sound, no murmurs, no rub and no gallops Cardio Narrative: Heart rate and rhythm is irregular GI normal to inspection, nondistended, normoactive bowel sounds, soft to palpation, non-tender and non-distended GI Narrative: Patient is morbidly obese Extremity no clubbing, cyanosis or edema Skin no rashes or lesions noted General Skin Exam: no breakdown Neuro oriented x3, CN's II-XII intact bilaterally, moves all extremities, no focal motor deficits and no sensory deficits noted Sensorium / Orientation: awake, alert, oriented to person, oriented to place and oriented to time Speech: speech normal Psych affect normal Results Lab / Micro Data 07/13/24 09:55 07/13/24 09:55 Labs: Laboratory Results - last 24 hr 07/13/24 09:55: WBC 6.4, RBC 4.35, Hgb 13.6, Hct 44.7, MCV 102.8 H, MCH 31.3, M CHC 30.4 L, RDW Std Deviation 49.1 H, RDW Coeff of Pattie 12.9, Plt Count 151, MPV 10.0, Sodium 140, Potassium 4.5, Chloride 103, Carbon Dioxide 30.0, Anion Gap 6, BUN 17, Creatinine 0.98, Estim Creat Clear Calc 60.93, Est GFR (MDRD) Af Amer 69, Est GFR (MDRD) Non-Af 57 L, BUN/Creatinine Ratio 17.3, Glucose 165 H, Calcium 9.3, Total Bilirubin 0.60, AST 23, ALT 22, Alkaline Phosphatase 90, Troponin I High Sens 16, Total Protein 7.1, Albumin 3.3, Globulin 3.8, Albumin/Globulin Ratio 0.9 07/13/24 11:06: Urine Color Yellow, Urine Clarity Cloudy, Urine pH 6.0, Ur Specific [place] 1.020, Urine Protein 100 H, Urine Glucose (UA) Normal, Urine Ketones Negative, Urine Occult Blood 10 H, Urine Nitrite Negative, Urine Bilirubin Negative, Urine Urobilinogen 1 H, Ur Leukocyte Esterase 100 H, Urine RBC 0 SEEN, Urine WBC 5-10 SEEN, Ur Squamous Epith Cells 5-10 SEEN, Urine Bacteria 2+, Urine Mucus 1+ Micro: Microbiology 07/13/24 09:52 Mucosa - Nose SARS-CoV-2, Influenza & RSV (PCR) - Final SARS-CoV-2 (COVID 19 PCR) Imaging Radiology Impression Brain CT 07/13/24 09:42 IMPRESSION: No acute intracranial process identified. Electronically Signed: Nidia Goldman MD at 10:54 EDT , Chest X-Ray 07/13/24 10:15 IMPRESSION: Mild opacities in the mid to lower lungs, concerning for pneumonia or pneumonitis. Electronically Signed: Nidia Goldman MD at 10:55 EDT , Assessment & Plan Assessment/Plan (1) Atrial fibrillation: PLAN: Plan 1. [id number] will receive dexamethasone and remdesivir #2 acute debility secondary to [id number] will be seen by PT #3 hypoxia secondary to #1-patient's pulse ox will be monitored #4 atrial fibrillation with rapid ventricular response-patient received a dose of metoprolol IV in the emergency room, she will remain on oral metoprolol which will be adjusted depending on her rate control. #5 type 2 diabetes-patient's blood sugars will be monitored, sliding scale insulin was ordered #6 morbid obesity-complicates care, management, recovery, and prognosis Total clinical time spent by myself addressing the patient's medical issues, reviewing all of her data, and collaborating with patient's care team: 55 minutes Charges/Coding Visit Charges Inpatient E&M: 04679 Init Hosp L2
[2024-07-13] MEDS: APIXABAN 5 MG TABLET PO (22:32)
[2024-07-13] MEDS: Insulin Lispro 100 UNIT/ML INSULN.PEN SC (22:32)
[2024-07-13] MEDS: Metoprolol(XL)Succ 25 MG Tablet 75 MG PO (22:33)
[2024-07-13] MEDS: Acetaminophen 325 MG Tablet 650 MG PO (22:34)
[2024-07-13 23:02] LABS: Bedside Glucose 257 mg/dL (74-106)
[2024-07-14] VITALS (12 sets, daily range): BP systolic 122–149; BP diastolic 71–86; PULSE 77–95; RESP 16–20; TEMP 36.5–36.8; O2SAT 84–99
[2024-07-14] MEDS: Levothyroxine 150 MCG Tablet PO (06:38)
[2024-07-14 06:46] LABS: Hematocrit 42.4 % (37-47); Mean Corp Hgb Conc 30.7 g/dL (32-36); Mean Corpuscular Hgb 31.7 pg (27.0-32.0); Mean Corpuscular Volume 103.4 fL (81-99); Mean Platelet Vol. 10.4 fl (6.2-12.0); Platelet Count 163 K/mm3 (150-450); RBC Distribution Width CV 12.7 % (11.6-14.6); RBC Distribution Width SD 48.5 fl (35.1-43.9); White Blood Count 6.9 K/mm3 (4.4-11.0)
[2024-07-14 07:01] LABS: Bedside Glucose 146 mg/dL (74-106)
[2024-07-14 07:20] LABS: ALB/GLOB Ratio 0.8 RATIO (0.9-2.4); AST(SGOT) 21 U/L (15-37); Alanine Aminotransfer ALT/SGPT 23 U/L (13-56); Albumin, Serum 3.1 g/dL (3.2-5.0); Alkaline Phosphatase 90 U/L (45-117); Anion Gap 5 (5-15); BUN 18 mg/dL (7-18); BUN/Creat Ratio 19.7 RATIO (10-20); Chloride 105 mmol/L (98-107); Creatinine, Serum 0.91 mg/dL (0.55-1.02); EST Glomerular Filtration Rate 63 mL/min (>60); Est Glom Filt Rate - Afr Amer 76 mL/min (>60); Estimated Creatinine Clearance 61.95 ml/min; Globulin 3.7 g/dL (2.2-4.2); Glucose 165 mg/dL (74-106); Protein, Total 6.8 g/dL (6.4-8.2); Sodium Level 139 mmol/L (136-145)
[2024-07-14] MEDS: Remdesivir 100 MG in 0.9% Normal Saline (250mL Bag) 230 ML 250 MG IV (07:50)
[2024-07-14] MEDS: APIXABAN 5 MG TABLET PO ×2 (09:22→22:37)
[2024-07-14] MEDS: dexAMETHasone 4 MG Tablet 6 MG PO (09:23)
[2024-07-14] MEDS: Furosemide 40 MG Tablet PO (09:23)
[2024-07-14] MEDS: Metoprolol(XL)Succ 25 MG Tablet 75 MG PO ×2 (09:23→22:37)
[2024-07-14] MEDS: Albuterol 2.5 MG/3 ML VIAL.NEB. INHALATION ×3 (10:12→23:31)
[2024-07-14] MEDS: Insulin Lispro 100 UNIT/ML INSULN.PEN SC ×3 (11:14→22:41)
[2024-07-14 11:33] LABS: Bedside Glucose 227 mg/dL (74-106)
--- NOTE | 2024-07-14 14:15 | PCM.PN.HOSP ---
Reason for Visit Reason for Visit: Diagnoses Unspecified atrial fibrillation (07/13/24) Subjective Subjective Patient was seen and examined today, she is on 2 L of oxygen currently, she does have some expiratory wheezing today so I elected to place her on some albuterol aerosol treatments. Patient states she has no history of COPD she smoked briefly when she was in high school and when she was in her 20s but has not smoked since. Objective Data Objective Data Vital Signs: Vital Signs Temp Pulse Resp BP Pulse Ox O2 Del Method O2 Flow Rate 98.2 F 93 18 122/71 H 92 Nasal Cannula 1 07/14/24 09:21 07/14/24 10:13 07/14/24 10:13 07/14/24 09:21 07/14/24 09:21 07/14/24 09:21 07/14/24 09:21 FiO2 97 07/13/24 14:52 Oxygen Flow Rate (L/min) 1 Oxygen Delivery Method Nasal Cannula Weight: 127.4 kg Body Mass Index (BMI) 48.2 Intake & Output: Intake and Output for Last 24 Hours 07/12/24 07/13/24 07/14/24 23:59 23:59 23:59 Intake Total 555 / 805 500 / 500 Balance 555 / 805 500 / 500 Lab / Micro Data 07/14/24 06:22 07/14/24 06:22 Labs: Laboratory Results - last 24 hr 07/13/24 22:25: POC Glucose 257 H 07/14/24 06:22: WBC 6.9, RBC 4.10 L, Hgb 13.0, Hct 42.4, MCV 103.4 H, MCH 31.7, MCHC 30.7 L, RDW Std Deviation 48.5 H, RDW Coeff of Pattie 12.7, Plt Count 163, MPV 10.4, Sodium 139, Potassium 5.0, Chloride 105, Carbon Dioxide 29.0, Anion Gap 5, BUN 18, Creatinine 0.91, Estim Creat Clear Calc 61.95, Est GFR (MDRD) Af Amer 76, Est GFR (MDRD) Non-Af 63, BUN/Creatinine Ratio 19.7, Glucose 165 H, Calcium 9.0, Total Bilirubin 0.50, AST 21, ALT 23, Alkaline Phosphatase 90, Total Protein 6.8, Albumin 3.1 L, Globulin 3.7, Albumin/Globulin Ratio 0.8 L 07/14/24 06:37: POC Glucose 146 H 07/14/24 11:13: POC Glucose 227 H Micro: Microbiology 07/13/24 09:52 Mucosa - Nose SARS-CoV-2, Influenza & RSV (PCR) - Final SARS-CoV-2 (COVID 19 PCR) Physical Exam Narrative alert, oriented x3 and no apparent distress Constitutional Narrative: Patient is morbidly obese General Appearance: cooperative, well kempt and well developed Orientation / Consciousness: awake, oriented to person, oriented to place and oriented to time HEENT normocephalic, head/scalp atraumatic and moist oral mucous membranes Eyes PERRL, EOMs intact bilaterally and conjunctivae normal Neck supple, no JVD, thyroid normal and no carotid bruits General: trachea midline Resp normal respiratory effort, no retractions, no use of accessory muscles and clear to auscultation bilaterally Auscultation: Negative for rales, rhonchi or wheezes Cardio S1 normal heart sound, S2 normal heart sound, no murmurs, no rub and no gallops Cardio Narrative: Heart rate and rhythm is irregular GI normal to inspection, nondistended, normoactive bowel sounds, soft to palpation, non-tender and non-distended GI Narrative: Patient is morbidly obese Extremity no clubbing, cyanosis or edema Skin no rashes or lesions noted General Skin Exam: no breakdown Neuro oriented x3, CN's II-XII intact bilaterally, moves all extremities, no focal motor deficits and no sensory deficits noted Sensorium / Orientation: awake, alert, oriented to person, oriented to place and oriented to time Speech: speech normal Psych affect normal Assessment & Plan Assessment/Plan (1) COVID-19: (2) Atrial fibrillation: PLAN: Plan 1. KBMRR-sxfcwdyyy-pedabuk will receive dexamethasone and remdesivir, aerosol treatments were added to the patient's medications today #2 acute debility secondary to HTEFX-chioycxde-ejgwpbu will be seen by PT #3 hypoxia secondary to #1-patient's pulse ox will be monitored #4 atrial fibrillation-patient is on rate limiting medication and anticoagulant #5 type 2 diabetes-patient's blood sugars will be monitored, sliding scale insulin was ordered #6 morbid obesity-complicates care, management, recovery, and prognosis Total clinical time spent by myself addressing the patient's medical issues, reviewing all of her data, and collaborating with patient's care team: 35 minutes Charges/Coding Visit Charges Inpatient E&M: 89813 Subs Hosp L2
--- NOTE | 2024-07-14 15:02 | CASEMGMT ---
DANO WHITE Assessment: TC with pt for initial transition planning/care coordination assessment. DANO WHITE introduced self and role at [facility], pt voices understanding and consents to assessment. Pt is A&O x4 and answers all questions appropriately at this time. Care providers, pharmacy, and demographics verified/updated. Admitting Dx: COVID 19, hypoxia Strata Score: 2 PCP:Amada Specialists:AUSTIN, cardio Preferred Pharmacy: [facility] Insurance: MCR, MCR supp Prescription Benefit: yes LNOK: Juan Grady, ; Shalondadeana Rod, dtr Living Arrangements: Pt lives with in a single story home with 3 steps to enter. Pt reports she is I in ADLS, is present for safety in bathing and her and her have a system to share in household tasks. Pt denies concerns at home. Transportation: Pt has a license but does not drive d/t sciatic nerve on R leg. Pt transports pt. DME:BP cuff, pox, walker, cane HHC/SNF: Pt has had HHC in the past but cannot recall name. Pt has been to [facility]. Pt states no concerns with going home at time of dc. Pt is currently on RA but states should she need oxygen at dc, she prefers it to be through [facility] ([facility]) as she has had it through them in the past. Pt denies need for HHC. PT ordered but has not eval'd yet. Pt states she has many family members who can assist her if needed at home. Pt states no further concerns/needs. CM to follow. Advised pt to ask CM if any further question/concerns/needs arise, voices understanding. Pt Goal: Home Plan: Home, follow for oxygen and therapy verito Dang RN, CM
[2024-07-14 16:18] LABS: Bedside Glucose 278 mg/dL (74-106)
[2024-07-14] MEDS: Methocarbamol 500 MG Tablet PO (22:37)
[2024-07-14] MEDS: Acetaminophen 325 MG Tablet 650 MG PO (22:37)
[2024-07-15 01:16] LABS: Bedside Glucose 229 mg/dL (74-106)
[2024-07-15] MEDS: Levothyroxine 150 MCG Tablet PO (05:26)
[2024-07-15 05:38] VITALS: BP 139/84; PULSE 91; RESP 20; TEMP 36.4; O2SAT 96
[2024-07-15] MEDS: Insulin Lispro 100 UNIT/ML INSULN.PEN SC ×2 (06:58→11:31)
[2024-07-15 07:21] LABS: Bedside Glucose 164 mg/dL (74-106)
[2024-07-15 07:44] VITALS: O2SAT 97
[2024-07-15 11:10] VITALS: BP 113/63; PULSE 81; RESP 18; TEMP 36.4; O2SAT 93
[2024-07-15 11:14] VITALS: BP 113/63; PULSE 81
[2024-07-15] MEDS: dexAMETHasone 4 MG Tablet 6 MG PO (11:14)
[2024-07-15] MEDS: Furosemide 40 MG Tablet PO (11:14)
[2024-07-15] MEDS: APIXABAN 5 MG TABLET PO (11:14)
[2024-07-15] MEDS: Metoprolol(XL)Succ 25 MG Tablet 75 MG PO (11:14)
[2024-07-15] MEDS: Remdesivir 100 MG in 0.9% Normal Saline (250mL Bag) 230 ML 250 MG IV (11:15)
[2024-07-15 11:24] VITALS: O2SAT 88; O2SAT 95; O2SAT 97
--- NOTE | 2024-07-15 12:20 | DCINST_ITS ---
Discharge Instructions Diet Discharge Diet: 1800 Calorie Control Diet Activity Discharge Activity: Return to Normal Activity Weight Bearing Status: Full weight bearing Follow Up Care Test Results: Test results from this visit will be discussed in further detail at your follow- up appointment, if applicable. Discharge Plan Admission Admit Date/Time: 07/13/24 12:53 Primary Reason for Your Visit: COVID-19 pneumonia Attending Provider: Chau Bob Primary Care Provider: Mihaela Ybarra Instructions Additional Instructions / Restrictions: Please be aware that your metoprolol succinate was increased to 75 mg twice a day, I have provided a prescription for 25 mg tablets-you will need to take 3 twice a day Use oxygen at 2 L/min via nasal cannula while ambulating and at rest Discharge Orders/Prescriptions Prescriptions: New metoprolol succinate 25 mg Tablet Extended Release 24 Hr 75 mg PO BID Qty: 180 0RF dexamethasone 6 mg tablet 6 mg PO DAILY Qty: 7 0RF Rx Instructions: Start on 07/16/2024 Continued tramadol 50 mg tablet 50 mg PO DAILY PRN (Reason: PAIN ) metformin 500 mg tablet extended release 24 hr 500 mg PO BREAKFAST apixaban 5 mg tablet 5 mg PO BID Qty: 60 11RF levothyroxine 150 tablet 150 mcg PO DAILY ergocalciferol (vitamin D2) 1,250 mcg (50,000 unit) capsule 1,250 mcg PO UD Patient Comments: PT ISNT CURRENTLY TAKING THIS VITAMIN ON SPECIFIC DAYS OF THE WEEK AT THIS TIME. Rx Instructions: TAKE ONE CAPSULE BY MOUTH TWICE WEEKLY FOR 1 MONTH THEN DECREASE TO ONE CAPSULE ONCE WEEKLY THEREAFTER furosemide 40 mg tablet 40 mg PO DAILY ondansetron 4 mg tablet,disintegrating 4 mg PO TID PRN (Reason: NAUSEA/VOMITIMNG ) Qty: 21 0RF methocarbamol 500 mg tablet 500 mg PO 4X/DAY PRN (Reason: MUSCLE PAIN/SPASMS ) Qty: 40 0RF Discontinued metoprolol succinate 50 mg tablet extended release 24 hr 50 mg PO DAILY PRN (Reason: BLOOD PRESSURE ) Referrals / Follow Up: Mihaela Ybarra MD [Primary Care Provider] - In 1 Week Disposition Disposition (needs filled in before D/C Order can be placed): Home, Self Care
--- NOTE | 2024-07-15 12:41 | PCM.DC.SUM ---
Providers Date of Admission: 07/13/24 Date of Discharge: 07/15/24 Primary Care Physician: Dr. Mihaela Ybarra MD Reason For Visit: COVID 19, HYPOXIA Diagnosis Discharge Diagnosis (1) COVID-19: Status: Acute Code(s): U07.1 - COVID-19 (2) Atrial fibrillation: Status: Acute Code(s): I48.91 - Unspecified atrial fibrillation Plan 1. VPCUT-jbmictodq-uvuzvsm will receive dexamethasone and remdesivir, aerosol treatments were added to the patient's medications today #2 acute debility secondary to RFDZR-thkbextxr-urosdrr will be seen by PT #3 hypoxia secondary to #1-patient's pulse ox will be monitored #4 atrial fibrillation-patient is on rate limiting medication and anticoagulant #5 type 2 diabetes-patient's blood sugars will be monitored, sliding scale insulin was ordered #6 morbid obesity-complicates care, management, recovery, and prognosis Total clinical time spent by myself addressing the patient's medical issues, reviewing all of her data, and collaborating with patient's care team: 35 minutes Medications at Discharge Home Medications levothyroxine 150 mcg tablet 150 mcg PO DAILY THYROID 02/02/19 tramadol 50 mg tablet 50 mg PO DAILY PRN PAIN 04/08/23 apixaban 5 mg tablet 5 mg PO BID BLOOD THINNER #60 tabs 11/11/23 metformin 500 mg tablet,extended release 24 hr 500 mg PO BREAKFAST DIABETES 11/11/23 methocarbamol 500 mg tablet 500 mg PO 4X/DAY PRN MUSCLE PAIN/SPASMS #40 tabs 05/07/24 ondansetron 4 mg disintegrating tablet 4 mg PO TID PRN NAUSEA/VOMITIMNG #21 tabs 05/07/24 ergocalciferol (vitamin D2) 1,250 mcg (50,000 unit) capsule 1,250 mcg PO UD SUPPLEMENT 07/13/24 furosemide 40 mg tablet 40 mg PO DAILY EDEMA 07/13/24 dexamethasone 6 mg tablet 6 mg PO DAILY #7 tabs 07/15/24 metoprolol succinate 25 mg tablet,extended release 24 hr 75 mg (3 x 25 mg) PO BID #180 tabs 07/15/24 Hospital Course Operations None Procedures None Summary of Care Provided Minutes Spent on Discharge: 31 Hospital Course: This 83-year-old white female was seen in the emergency room at [facility] with complaints of generalized weakness and malaise. She had a nonproductive cough, she stated her symptoms occurred over 5 days prior. Workup in the emergency room included a CBC which was unremarkable, urinalysis did not indicate a urinary tract infection, patient's chemistry profile was unremarkable. Brain CT was unremarkable, chest x-ray showed mild opacities in the mid to lower lungs concerning for pneumonia or pneumonitis. Patient's COVID-19 test was positive. Patient was felt to have COVID-19 pneumonia, she was mildly hypoxic and required 2 L of oxygen, she was admitted to PCU and placed on IV remdesivir and given dexamethasone. After 2 days, patient requested discharge and agreed to go home with oxygen if necessary. On 07/15/2024, patient was seen and examined: On examination she appeared in good health and spirits, she does not appear to be in any distress. Vital signs as documented. Skin warm and dry and without overt rashes. Neck without JVD, thyroid appears normal, trachea is midline, neck is supple. Lungs clear, normal air movement was noted. Heart exam notable for regular rhythm, normal sounds and absence of murmurs, rubs or gallops. Abdomen unremarkable and without evidence of organomegaly, masses, or abdominal aortic enlargement, bowel sounds are present in all 4 quadrants, no abdominal tenderness was noted. Extremities nonedematous, no cyanosis was noted, no clubbing was noted. Neuro: Cranial nerves II through XII are grossly intact, no focal motor deficits were noted, sensation to light touch and pinprick is intact, motor exam 5/5 throughout. Psych: Patient is alert and oriented x3, she does not appear anxious or depressed, she does not appear agitated. Patient was discharged on 2 L of oxygen during ambulation and at rest on 07/15/2024 in stable condition. Weight / BMI Weight Weight: 127.4 kg Body Mass Index (BMI) 48.2 ABG / Lab / Microbiology Data 07/14/24 06:22 07/14/24 06:22 Laboratory: Laboratory Results - last 24 hr 07/14/24 15:45: POC Glucose 278 H 07/14/24 22:40: POC Glucose 229 H 07/15/24 06:58: POC Glucose 164 H Microbiology: Microbiology 07/13/24 09:52 Mucosa - Nose SARS-CoV-2, Influenza & RSV (PCR) - Final SARS-CoV-2 (COVID 19 PCR) D/C Instructions Discharge Diet: 1800 Calorie Control Diet Weight Bearing Status: Full weight bearing Meaningful Use Info Meaningful Use Meaningful Use Diagnoses (Choose all that apply): None applicable Ischemic Stroke Statin Dosing Therapy Reference: STATIN DOSE THERAPY REFERENCE: * Patients > 75 years receive moderate or high dose statin therapy. * Patients 75 years or YOUNGER should receive HIGH intensity statin dose unless contraindicated. You will be required to document reason for non-treatment if statin daily dose does not meet guidelines. HIGH DOSE STATIN THERAPY DAILY Atorvastatin > than or = to 40 mg Rosuvastatin > than or = to 20 mg Amlodipine + Atorvastatin > than or = to 2.5/40 mg Ezetimibe + Simvastatin 10/80 mg Simvastatin 80mg Discharge Plan Admission Admit Date/Time: 07/13/24 12:53 Primary Reason for Your Visit: COVID-19 pneumonia Attending Provider: Chau Bob Primary Care Provider: Mihaela Ybarra Instructions Additional Instructions / Restrictions: Please be aware that your metoprolol succinate was increased to 75 mg twice a day, I have provided a prescription for 25 mg tablets-you will need to take 3 twice a day Use oxygen at 2 L/min via nasal cannula while ambulating and at rest Discharge Orders/Prescriptions Prescriptions: New metoprolol succinate 25 mg Tablet Extended Release 24 Hr 75 mg PO BID Qty: 180 0RF dexamethasone 6 mg tablet 6 mg PO DAILY Qty: 7 0RF Rx Instructions: Start on 07/16/2024 Continued tramadol 50 mg tablet 50 mg PO DAILY PRN (Reason: PAIN ) metformin 500 mg tablet extended release 24 hr 500 mg PO BREAKFAST apixaban 5 mg tablet 5 mg PO BID Qty: 60 11RF levothyroxine 150 tablet 150 mcg PO DAILY ergocalciferol (vitamin D2) 1,250 mcg (50,000 unit) capsule 1,250 mcg PO UD Patient Comments: PT ISNT CURRENTLY TAKING THIS VITAMIN ON SPECIFIC DAYS OF THE WEEK AT THIS TIME. Rx Instructions: TAKE ONE CAPSULE BY MOUTH TWICE WEEKLY FOR 1 MONTH THEN DECREASE TO ONE CAPSULE ONCE WEEKLY THEREAFTER furosemide 40 mg tablet 40 mg PO DAILY ondansetron 4 mg tablet,disintegrating 4 mg PO TID PRN (Reason: NAUSEA/VOMITIMNG ) Qty: 21 0RF methocarbamol 500 mg tablet 500 mg PO 4X/DAY PRN (Reason: MUSCLE PAIN/SPASMS ) Qty: 40 0RF Discontinued metoprolol succinate 50 mg tablet extended release 24 hr 50 mg PO DAILY PRN (Reason: BLOOD PRESSURE ) Referrals / Follow Up: Mihaela Ybarra MD [Primary Care Provider] - In 1 Week Disposition Disposition (needs filled in before D/C Order can be placed): Home, Self Care Charges/Coding Visit Charges Inpatient E&M: 95702 Disch Hosp >30min
--- NOTE | 2024-07-15 13:18 | PCM.HOSP.N ---
Hospitalist Note Oxygen testing reviewed, patient is ambulatory in the home and community and requires home oxygen with portability
[2024-07-15 13:31] LABS: Bedside Glucose 198 mg/dL (74-106)
--- NOTE | 2024-07-15 13:34 | CASEMGMT ---
Patient has order for discharge. Patient qualifies for home oxygen at discharge. Script received. DANO WHITE discuss needs at discharge. Patient states she would prefer [employer] for oxygen setup when agencies reviewed. Patient denies needs or help at discharge. Patient had no further questions or concerns. DANO WHITE madre referral to [employer] via [facility] and portable tank provided from [employer].
[2024-07-15 14:53] VITALS: BP 123/74; PULSE 91; RESP 16; TEMP 36.2; O2SAT 94
== END 2024-07-15 15:16 | disposition home or self-care (01) | DRG 177 ==
LOC: ED 11:15 → PCU 13:09
PROVIDERS: Admitting Provider Internal Medicine; Emergency Provider Emergency Medicine; PCP Internal Medicine; Visit Provider Internal Medicine
DX: U07.1 COVID-19 (principal); J12.82 Pneumonia due to coronavirus disease 2019; Z68.42 Body mass index [BMI] 45.0-49.9, adult; I48.20 Chronic atrial fibrillation, unspecified; E11.9 Type 2 diabetes mellitus without complications; I10 Essential (primary) hypertension; E66.01 Morbid (severe) obesity due to excess calories; R09.02 Hypoxemia; R53.81 Other malaise; Z79.01 Long term (current) use of anticoagulants; Z79.84 Long term (current) use of oral hypoglycemic drugs; Z79.899 Other long term (current) drug therapy; Z87.891 Personal history of nicotine dependence
CPT/HCPCS: 36415; 70450; 71045; 80053; 81001; 82962; 84484; 85027; 87631; 93005; 94640; 97162; 99284; J7050; A4216; J0248

== ENCOUNTER 2024-08-07 15:11 | Inpatient (IN) | payer MEDICARE, OTHER, SELFPAY ==
[2024-08-07] VITALS (7 sets, daily range): BP systolic 116–146; BP diastolic 76–122; PULSE 63–110; RESP 12–23; TEMP 35.3–36.9; O2SAT 94–99; BMI 49.0; BMI 46.0
--- NOTE | 2024-08-07 15:25 | EKG12_ITS ---
Test Reason : DIZZY Blood Pressure : */* mmHG Vent. Rate : 107 BPM Atrial Rate : * BPM P-R Int : * ms QRS Dur : 78 ms QT Int : 320 ms P-R-T Axes : * 14 40 degrees QTcB Int : 427 ms Atrial fibrillation with rapid ventricular response Low voltage QRS Abnormal ECG Confirmed by DALLAS GONZALEZ, JAIMIE ([id number]), editor department SEVERO ADAMS ([id number]) on 08/09/2024 9:41:48 AM Referred By: Confirmed By: JAIMIE HAYNES MD
--- NOTE | 2024-08-07 15:43 | RAD_ITS ---
STUDY: X-RAY CHEST REASON FOR EXAM: Female, 83 years old. hypoxia TECHNIQUE: Frontal and lateral views of the chest. COMPARISON: July 13, 2024 FINDINGS: Elevated right hemidiaphragm. Calcific mitral annulus. Subsegmental atelectasis left lung base. There is no demonstrated pleural abnormality. Probable cardiomegaly. Normal mediastinum and trent. Normal visualized pulmonary arteries. Normal visualized aortic arch and descending thoracic aorta. Mild scoliosis and spondylosis. Normal visualized ribs, clavicles, and shoulders. There is no demonstrated abnormality of the visualized soft tissue structures of the upper abdomen. RAD/Chest PA and Lateral IMPRESSION: No acute disease Electronically Signed: Sabino Keen MD at 16:27 EST ,
[2024-08-07 15:46] LABS: Absolute Lymphocyte Count 1.63 X10^3/uL (0.83-4.51); Absolute Neutrophil Count 4.8 X10^3/uL (2.0-7.7); Basophil# 0.04 X10^3/uL; Basophil% 0.6 % (0-1); Eosinophil# 0.15 X10^3/uL; Eosinophils% 2.1 % (0-5); Hematocrit 42.9 % (37-47); Hemoglobin 13.5 g/dL (12.0-15.0); Lymphocyte # 1.63 X10^3/ul (0.83-4.51); Lymphocyte % 22.6 % (19-41); Mean Corp Hgb Conc 31.5 g/dL (32-36); Mean Corpuscular Hgb 31.5 pg (27.0-32.0); Mean Platelet Vol. 10.1 fl (6.2-12.0); Monocyte# 0.53 X10^3/uL; Monocyte% 7.4 % (0-10); NRBC Flagged by Analyzer 0 % (0-5); Neutrophil # 4.84 X10^3/uL (2.7-7.7); Platelet Count 133 K/mm3 (150-450); RBC Distribution Width CV 12.7 % (11.6-14.6); Red Blood Count 4.29 M/mm3 (4.2-5.4); White Blood Count 7.2 K/mm3 (4.4-11.0)
[2024-08-07 16:06] LABS: AST(SGOT) 10 U/L (15-37); Alanine Aminotransfer ALT/SGPT 19 U/L (13-56); Alkaline Phosphatase 74 U/L (45-117); Anion Gap 6 (5-15); BUN 15 mg/dL (7-18); BUN/Creat Ratio 13.6 RATIO (10-20); Calcium,Total 9.4 mg/dL (8.5-10.1); Chloride 102 mmol/L (98-107); EST Glomerular Filtration Rate 50 mL/min (>60); Est Glom Filt Rate - Afr Amer 61 mL/min (>60); Estimated Creatinine Clearance 51.77 ml/min; Globulin 3.1 g/dL (2.2-4.2); Glucose 291 mg/dL (74-106); Potassium 4.1 mmol/L (3.5-5.1); Protein, Total 6.1 g/dL (6.4-8.2); Sodium Level 139 mmol/L (136-145); Troponin-I HS 18 pg/mL (3.0-54.0)
[2024-08-07 16:07] LABS: Prothrombin Time (Protime)PT. 12.8 SECONDS (11.7-14.9)
[2024-08-07 16:08] LABS: Lactic Acid 2.4 mmol/L (0.4-1.9); Partial Thromboplast Time 26.7 Seconds (24.1-36.2)
--- NOTE | 2024-08-07 16:38 | EDS_ITS ---
HPI History of Present Illness Chief Complaint: Dizziness Narrative Narrative: Patient is a 83-year-old female past medical history of atrial fibrillation on Eliquis, hypertension, diabetes, hypothyroidism who presents to the emergency department with a chief complaint of lightheadedness. Patient states that she has been lightheaded since yesterday that has progressively worsened which prompted her to come here for further evaluation management. In the triage note they note that she quoted she was dizzy however after further clarification the patient states that things do not spinning and she is not spinning she feels lightheaded and that she may pass out. Patient denies any recent travels denies recent sick contacts. States that she has been compliant with her medications as prescribed not missing doses [facility] Medical History COVID-19 Atrial fibrillation Nonrheumatic aortic (valve) stenosis Nonrheumatic mitral valve disorder Essential hypertension HTN (hypertension) GI bleed Home Medications ?Medication ?Instructions ?Recorded ?Last Taken ?Type levothyroxine 150 mcg tablet 150 mcg PO DAILY THYROID 02/02/19 07/12/24 History apixaban 5 mg tablet 5 mg PO BID BLOOD THINNER #60 tabs 11/11/23 07/12/24 Rx metformin 500 mg tablet,extended 500 mg PO BREAKFAST DIABETES 11/11/23 07/12/24 History release 24 hr furosemide 40 mg tablet 40 mg PO DAILY EDEMA 07/13/24 07/12/24 History ergocalciferol (vitamin D2) 1,250 1,250 mcg PO BID 08/07/24 Unknown History mcg (50,000 unit) capsule Allergy/AdvReac Type Severity Reaction Status Date / Time gabapentin Allergy Unknown Unknown Verified 08/07/24 15:13 meloxicam AdvReac Unknown Unknown Verified 08/07/24 15:13 Aklewmb-[id number]-YiH Reductase AdvReac Unknown Unknown Verified 08/07/24 15:13 Inhibitor Family History Mother Cancer Colon CVA (cerebral vascular accident) Hypertension Father Myocardial infarction Surgical History History of umbilical hernia repair Hx of right knee surgery History of tonsillectomy History of bilateral cataract extraction History of tubal ligation History of cholecystectomy Social History Smoking Status: Former smoker alcohol intake: never substance use type: does not use caffeine: Yes Type: carbonated beverages Number of servings: 1 ROS ROS ED ROS Narrative Constitutional: Denies fevers, chills, headaches, dizziness complains of lightheadedness as noted above Eyes: Denies change in vision double vision blurry vision Cardiovascular: Denies chest pain or palpitations Respiratory: Complains of shortness of breath denies coughing wheezing Abdomen: Denies abdominal pain nausea vomit diarrhea : Denies any urinary symptoms Neurological: Denies any numbness, weakness, tingling Musculoskeletal: Denies back pain Skin: Denies rashes or lesions EXAM Physical Exam Narrative Exam Narrative: General: Patient lying in bed rest comfortably did not appear to be in acute distress Head: Atraumatic, normocephalic Eyes: PERRL bilateral, EOMI bilateral, no conjunctival injection noted Neck: Soft, supple, trachea midline Cardiovascular: Patient had an irregular irregular rhythm and was tachycardic no murmurs gallops or rubs noted Respiratory: Clear to auscultation bilaterally Abdomen: Soft, nondistended, no tenderness palpation, bowel sounds present in 4 Extremities: Radial pulses +2/4 in the bilateral per extremities, +5/5 strength noted in the bilateral upper and lower extremities, no pedal edema on exam Neurological: Patient following commands knew that she was at [facility] years 2023. Patient completed finger-nose and [id number] test bilaterally thigh difficulty. NIH of 0 GCS 15 Skin: Warm, dry, intact Const Vital Signs: 08/07/24 15:12 08/07/24 15:31 08/07/24 16:04 Temperature 95.6 F L 98.1 F Temperature Source Temporal Oral Pulse Rate 63 110 H Respiratory Rate 17 19 H Blood Pressure 146/122 H 128/100 H Blood Pressure Mean 130 109 Pulse Ox 94 98 Oxygen Delivery Method Room Air Room Air Nasal Cannula Oxygen Flow Rate (L/min) 2 08/07/24 17:04 08/07/24 18:00 08/07/24 20:00 Temperature 98.1 F Temperature Source Oral Pulse Rate 101 H 110 H 105 H Respiratory Rate 20 H 17 16 Blood Pressure 126/94 H 126/94 H 129/76 H Blood Pressure Mean 104 104 93 Pulse Ox 97 95 99 Oxygen Delivery Method Nasal Cannula Nasal Cannula Nasal Cannula Oxygen Flow Rate (L/min) 2 2 2 08/07/24 22:00 Temperature Temperature Source Pulse Rate 85 Respiratory Rate 12 Blood Pressure 116/97 H Blood Pressure Mean 103 Pulse Ox 96 Oxygen Delivery Method Nasal Cannula Oxygen Flow Rate (L/min) 2 MDM MDM MDM Narrative Medical decision making narrative: Patient is a 83-year-old female who presented to the emergency department with chief complaint of lightheadedness. Patient will have a workup performed here on the differential diagnosis includes but not limited to ACS, pneumonia, hypoxia, UTI. Once workup is obtained reviewed she will be reevaluated. Patient will be given 30 cc of IV fluids based on ideal body weight secondary to BMI greater than 30 at 1644 Patient's CBC reviewed and showed no evidence leukocytosis white blood count normal at 7.2, hemoglobin stable 13.5, platelet count was noted be 133. Patient's INR normal at 1, PT of 12.8. Patient sodium normal at 139, potassium normal at 4.1, creatinine was 1.10. Patient's lactic acid was elevated to 2.4 this was repeated after 2500 mL of IV fluids and is normal at 1.5. Patient's AST and ALT were 10 and 19 respectively. Patient's troponin was noted be normal at 18, delta troponin obtained normal at 20. Patient's EKG was reviewed and independently interpreted by myself which showed atrial fibrillation with rapid ventricular response with a rate of 107 bpm patient does have a history of atrial fibrillation is on Eliquis. Patient's urinalysis showed 25 leukocyte esterase 25-50 white cells however this did appear to be a contaminated sample as there were 50-100 squamous epithelial cells and 2+ bacteria this was sent for culture. Patient's chest x-ray was reviewed by myself and by radiology which showed no acute cardiopulmonary processes. At 8:30 PM there is no identifiable source of infection therefore no antibiotics are indicated. On reevaluation the patient and she states that she still feels lightheaded and feels off and not her normal self. Patient once again is not on oxygen at home on a regular basis just as needed however here in the emergency department she was hypoxic on room air to 88% therefore she is on 2 L nasal cannula. Will add a CT head on without contrast as she states that she is still not feeling her normal self. Once this is returned we will review this and plan on admission to the hospital. Patient's head CT was reviewed and showed no acute intracranial hemorrhage. Patient's heart rate is now in the low 100s we will hold off on any rate control for now for her atrial fibrillation with rapid ventricular response after IV fluids. Once again I do believe the patient will warrant admission for her hypoxia, generalized weakness and lightheadedness not feeling her normal self will discuss case with hospitalist I did discuss case with hospitalist Dr. Barrientos who accept the patient for admission. Patient will be given a gram of Rocephin for UTI per hospitalist until urine culture returns. Patient was notified is agreeable this plan all question concerns answered. Lab Data Labs: Laboratory Results - last 24 hr 08/07/24 08/07/24 08/07/24 15:27 17:51 17:58 WBC 7.2 RBC 4.29 Hgb 13.5 Hct 42.9 MCV 100.0 H MCH 31.5 MCHC 31.5 L RDW Std Deviation 46.0 H RDW Coeff of Pattie 12.7 Plt Count 133 L MPV 10.1 Immature Gran % (Auto) 0.300 Neut % (Auto) 67.0 Lymph % (Auto) 22.6 [place] % (Auto) 7.4 Eos % (Auto) 2.1 Baso % (Auto) 0.6 Absolute Neuts (auto) 4.8 Absolute Lymphs (auto) 1.63 Nucleated RBC % 0 PT 12.8 INR 1.0 APTT 26.7 Sodium 139 Potassium 4.1 Chloride 102 Carbon Dioxide 31.0 Anion Gap 6 BUN 15 Creatinine 1.10 H Estim Creat Clear Calc 51.77 Est GFR (MDRD) Af Amer 61 Est GFR (MDRD) Non-Af 50 L BUN/Creatinine Ratio 13.6 Glucose 291 H Lactic Acid 2.4 H* Calcium 9.4 Total Bilirubin 0.50 AST 10 L ALT 19 Alkaline Phosphatase 74 Troponin I High Sens 18 20 B-Natriuretic Peptide 206.5 H Total Protein 6.1 L Albumin 3.0 L Globulin 3.1 Albumin/Globulin Ratio 1.0 Urine Color Yellow Urine Clarity Sl. Cloudy Urine pH 5.0 Ur Specific [place] 1.020 Urine Protein 30 H Urine Glucose (UA) 50 H Urine Ketones Negative Urine Occult Blood 25 H Urine Nitrite Negative Urine Bilirubin Negative Urine Urobilinogen Normal Ur Leukocyte Esterase 25 H Urine RBC 0 SEEN Urine WBC 25-50 SEEN Ur Squamous Epith Cells 50-100 SEEN Urine Bacteria 2+ Urine Mucus 0 SEEN 08/07/24 19:49 WBC RBC Hgb Hct MCV MCH MCHC RDW Std Deviation RDW Coeff of Pattie Plt Count MPV Immature Gran % (Auto) Neut % (Auto) Lymph % (Auto) [place] % (Auto) Eos % (Auto) Baso % (Auto) Absolute Neuts (auto) Absolute Lymphs (auto) Nucleated RBC % PT INR APTT Sodium Potassium Chloride Carbon Dioxide Anion Gap BUN Creatinine Estim Creat Clear Calc Est GFR (MDRD) Af Amer Est GFR (MDRD) Non-Af BUN/Creatinine Ratio Glucose Lactic Acid 1.5 Calcium Total Bilirubin AST ALT Alkaline Phosphatase Troponin I High Sens B-Natriuretic Peptide Total Protein Albumin Globulin Albumin/Globulin Ratio Urine Color Urine Clarity Urine pH Ur Specific [place] Urine Protein Urine Glucose (UA) Urine Ketones Urine Occult Blood Urine Nitrite Urine Bilirubin Urine Urobilinogen Ur Leukocyte Esterase Urine RBC Urine WBC Ur Squamous Epith Cells Urine Bacteria Urine Mucus Radiography Diagnostic Testing: Clinical Impression(s) from Imaging Studies Chest X-Ray 08/07/24 15:43 IMPRESSION: No acute disease Electronically Signed: Sabino Keen MD at 16:27 EST Reading Location ID and State: [address] [place] [address] Tel , Service support , Brain CT 08/07/24 21:44 IMPRESSION: No acute disease Electronically Signed: Sabino Keen MD at 22:17 EST Reading Location ID and State: [address] [place] [address] Tel , Service support , Discharge Plan Triage Chief Complaint: Dizziness ED Provider: Sidney Baker Dx/Rx/DC Orders Clinical Impression: Acute on chronic hypoxic respiratory failure, Generalized weakness, Urinary tract infection Prescriptions: No Action metformin 500 mg tablet extended release 24 hr 500 mg PO BREAKFAST apixaban 5 mg tablet 5 mg PO BID Qty: 60 11RF levothyroxine 150 tablet 150 mcg PO DAILY furosemide 40 mg tablet 40 mg PO DAILY ergocalciferol (vitamin D2) 1,250 mcg (50,000 unit) capsule 1,250 mcg PO BID Primary Care Provider: Mihaela Ybarra Referrals: Mihaela Ybarra MD [Primary Care Provider] - Print Language: Eritrean
[2024-08-07] MEDS: 0.9% Normal Saline (1000mL) 1,000 ML 999 ML IV ×3 (16:53→19:55)
[2024-08-07 17:57] LABS: Mucous, Urine 0 SEEN /hpf (<or=2+); Red Blood Cells-Urine 0 SEEN /hpf (0-5)
[2024-08-07 18:04] LABS: Color, Urine Yellow (Yellow); Glucose, Dipstick 50 mg/dl (Normal); Ketone-Dipstick Negative (Negative); Leukocyte Esterase-Dipstick 25 /ul (Negative); Nitrite-Dipstick Negative (Negative); Occult Blood-Urine 25 /ul (Negative); Protein-Dipstick 30 mg/dl (Negative); Urine Bilirubin Dipstick Negative (Negative); Urine Clarity Sl. Cloudy (Clear); Urine Urobilinogen Normal (Normal)
[2024-08-07 18:22] LABS: Bacteria 2+ /hpf (None Seen); Squamous Epithelial Cells - UA 50-100 SEEN /hpf (5-10); White Blood Cells 25-50 SEEN /hpf (0-5)
[2024-08-07 18:39] LABS: BNP,B-Type NATRIURETIC PEPTIDE 206.5 pg/mL (0-100)
[2024-08-07 18:42] LABS: Troponin-I HS 20 pg/mL (3.0-54.0)
[2024-08-07 19:37] LABS: Reflex Lactate? Y
[2024-08-07 20:43] LABS: Lactic Acid 1.5 mmol/L (0.4-1.9)
--- NOTE | 2024-08-07 21:44 | CT_ITS ---
STUDY: CT BRAIN WITHOUT CONTRAST REASON FOR EXAM: Female, 83 years old. lightheaded, doesnt feel normal RADIATION DOSAGE (If Supplied By Facility): CTDIvol = ( 44.99 ) mGy, DLP = ( 846.73 ) mGycm TECHNIQUE: Transaxial CT imaging of the brain was performed without administration of intravenous contrast material. Individualized dose optimization techniques were used for this CT. The protocol utilizes one or more of the following dose reduction techniques: automated exposure control, adjustment of mA and/or kV according to patient size,and/or use of iterative reconstruction technique. COMPARISON: July 13, 2024 CT brain FINDINGS: Normal soft tissue structures. Normal calvarium. Intracranial atherosclerosis. Bilateral lens implants. Normal size ventricles and extra-axial spaces for the patient''s age. Normal white matter tracts of the cerebral hemispheres. Normal basal ganglia and thalami. Normal brainstem. Normal cerebellum. There is no intracranial hemorrhage. There are no findings of an acute ischemic infarction. Normal visualized paranasal sinuses. CT/Brain/Head without Contrast IMPRESSION: No acute disease Electronically Signed: Sabino Keen MD at 22:17 EST ,
--- NOTE | 2024-08-07 22:39 | PCM.HP.STD ---
[facility] - [facility] General Date of Admission: 08/07/24 Date of Service: 08/07/24 Chief Complaint: Lightheadedness and Malaise. HPI Narrative Eh GRADY, is a 83 F with a past medical history of essential hypertension, hyperlipidemia; with intolerance to statins, hypothyroidism, former tobacco abuse, morbid obesity; with BMI of 49 this admission, DM-2; of unknown control on Metformin, chronic atrial fibrillation; on Apixaban, history of yxqizhbd-to-bfebco nonrheumatic aortic valve stenosis (2021), history of nonrheumatic mitral valve disease, history of GI bleed, history of cholecystectomy, history or umbilical hernia; s/p repair, history of bilateral cataract extraction, remote history of tubal ligation, listed allergy to Gabapentin (?), listed allergy to Meloxicam (?), OA and recent admission here from July 13, 2024 to July 15, 2024 for treatment of COVID-19 Pneumonia treated with IV Remdesivir plus Dexamethasone and with Respiratory Insufficiency and Acute Debility with patient discharged on supplemental oxygen 2L NC who re-presents to [facility] ER complaining of lightheadedness and malaise. Ms. Grady reports her symptoms began approximately 1 day prior to admission with lightheadedness that began in the morning and progressively worsened throughout the day with patient feeling like she was going to pass out so she decided to come in for further evaluation and treatment. She admits to associated SOB but she denies associated dizziness, fever, chills, nausea, vomiting, abdominal pain, chest pain, palpitations, dysuria, headache, rash or recent sick contacts. She coincidently had recently been reading up on the side effects of metformin because she thought she was having an adverse reaction to this agent. In the ER she was noted to have UA positive for early Acute Cystitis; without hematuria complicated by Lactic Acidosis of 2.4 mmol/L present on admission thought to be due at least in part to Metformin-induced Lactic Acidosis with Gjmsw-xy-Zuppsps Respiratory Insufficiency causing lightheadedness and malaise after recent COVID-19 Pneumonia in morbidly obese patient with 'Pickwickian' phenotype and likely untreated OCTAVIO and she was then admitted to the general medical floor with telemetric monitoring for a stay that is expected to extend beyond 2 midnights. [facility] Medical History COVID-19 Atrial fibrillation Nonrheumatic aortic (valve) stenosis Nonrheumatic mitral valve disorder Essential hypertension HTN (hypertension) GI bleed Home Medications ?Medication ?Instructions ?Recorded ?Last Taken ?Type levothyroxine 150 mcg tablet 150 mcg PO DAILY THYROID 02/02/19 07/12/24 History apixaban 5 mg tablet 5 mg PO BID BLOOD THINNER #60 tabs 11/11/23 07/12/24 Rx metformin 500 mg tablet,extended 500 mg PO BREAKFAST DIABETES 11/11/23 07/12/24 History release 24 hr furosemide 40 mg tablet 40 mg PO DAILY EDEMA 07/13/24 07/12/24 History ergocalciferol (vitamin D2) 1,250 1,250 mcg PO BID 08/07/24 Unknown History mcg (50,000 unit) capsule Allergy/AdvReac Type Severity Reaction Status Date / Time gabapentin Allergy Unknown Unknown Verified 08/07/24 15:13 meloxicam AdvReac Unknown Unknown Verified 08/07/24 15:13 Jxpcuhf-AHL-AoV Reductase AdvReac Unknown Unknown Verified 08/07/24 15:13 Inhibitor metformin AdvReac Other Verified 08/07/24 23:29 Family History Mother Cancer Colon CVA (cerebral vascular accident) Hypertension Father Myocardial infarction Surgical History History of umbilical hernia repair Hx of right knee surgery History of tonsillectomy History of bilateral cataract extraction History of tubal ligation History of cholecystectomy Social History Smoking Status: Former smoker alcohol intake: never substance use type: does not use caffeine: Yes Type: carbonated beverages Number of servings: 1 ROS ROS Narrative Review of Systems: Constitutional: Patient admits to lightheadedness and malaise but she denies fever or chills. Eyes: Patient denies changes in vision or discharge from eyes. ENT: Patient denies runny nose, sore throat or ear pain. Resp: Patient admits to persistent SOB but she denies cough. She states she has never had a formal sleep study. CV: Patient admits to lightheadedness but she denies chest pain, palpitations or heart racing. GI: Patient denies abdominal pain, nausea, vomiting, diarrhea or constipation. : Patient denies dysuria or hematuria. MSK: Patient denies arthralgias or myalgias. Skin: Patient denies rash, abscess or jaundice. Psych: Patient denies symptoms of uncontrolled depression or anxiety. Neuro: Patient denies headache, paresthesias or focal neurologic deficits. Allergy: Patient denies lip swelling, tongue swelling or urticaria. Hematology: Patient admits to easy bleeding on Eliquis. Endocrinology: Patient denies polyuria, polydipsia or polyphagia. 14 point ROS otherwise negative except for positives noted above in HPI. Vital Signs Vital Signs Vital Signs: 08/07/24 15:12 08/07/24 15:31 08/07/24 16:04 Temperature 95.6 F L 98.1 F Temperature Source Temporal Oral Pulse Rate 63 110 H Respiratory Rate 17 19 H Blood Pressure 146/122 H 128/100 H Blood Pressure Mean 130 109 Pulse Ox 94 98 Oxygen Delivery Method Room Air Room Air Nasal Cannula Oxygen Flow Rate (L/min) 2 08/07/24 17:04 08/07/24 18:00 08/07/24 20:00 Temperature 98.1 F Temperature Source Oral Pulse Rate 101 H 110 H 105 H Respiratory Rate 20 H 17 16 Blood Pressure 126/94 H 126/94 H 129/76 H Blood Pressure Mean 104 104 93 Pulse Ox 97 95 99 Oxygen Delivery Method Nasal Cannula Nasal Cannula Nasal Cannula Oxygen Flow Rate (L/min) 2 2 2 08/07/24 22:00 Temperature Temperature Source Pulse Rate 85 Respiratory Rate 12 Blood Pressure 116/97 H Blood Pressure Mean 103 Pulse Ox 96 Oxygen Delivery Method Nasal Cannula Oxygen Flow Rate (L/min) 2 Weight Weight: 285 lb 7.978 oz Body Mass Index (BMI) 49.0 Physical Exam Const alert, oriented x3 and no apparent distress Constitutional Narrative: Morbidly obese with nontoxic appearance. General Appearance: cooperative HEENT normocephalic, head/scalp atraumatic, hearing grossly normal bilaterally and moist oral mucous membranes Eyes PERRL and EOMs intact bilaterally Neck no lymphadenopathy and supple Resp normal respiratory effort, no retractions, no use of accessory muscles and clear to auscultation bilaterally Cardio Cardio Narrative: Irregularly irregular @ ~110 bpm. GI normal to inspection, nondistended, normoactive bowel sounds, soft to palpation, non-tender and non-distended GI Narrative: Morbidly obese. Extremity normal to inspection, full ROM and no clubbing, cyanosis or edema Skin Skin Narrative: Patient has no evidence of rash, abscess or jaundice. Neuro oriented x3, CN's II-XII intact bilaterally, moves all extremities and no focal motor deficits Sensorium / Orientation: awake, alert, oriented to person, oriented to place and oriented to time Speech: speech normal Psych affect normal Results Medical Records Data Attestation: I reviewed the patient's medical records Lab / Micro Data Attestation: I reviewed the patient's lab results. 08/08/24 04:42 08/08/24 04:42 Labs: Laboratory Results - last 24 hr 08/07/24 15:27: WBC 7.2, RBC 4.29, Hgb 13.5, Hct 42.9, MCV 100.0 H, MCH 31.5, MCHC 31.5 L, RDW Std Deviation 46.0 H, RDW Coeff of Pattie 12.7, Plt Count 133 L, MPV 10.1, Immature Gran % (Auto) 0.300, Neut % (Auto) 67.0, Lymph % (Auto) 22.6, [place] % (Auto) 7.4, Eos % (Auto) 2.1, Baso % (Auto) 0.6, Absolute Neuts (auto) 4.8, Absolute Lymphs (auto) 1.63, Nucleated RBC % 0, PT 12.8, INR 1.0, APTT 26.7, Sodium 139, Potassium 4.1, Chloride 102, Carbon Dioxide 31.0, Anion Gap 6, BUN 15, Creatinine 1.10 H, Estim Creat Clear Calc 51.77, Est GFR (MDRD) Af Amer 61, Est GFR (MDRD) Non-Af 50 L, BUN/Creatinine Ratio 13.6, Glucose 291 H, Lactic Acid 2.4 H*, Calcium 9.4, Total Bilirubin 0.50, AST 10 L, ALT 19, Alkaline Phosphatase 74, Troponin I High Sens 18, Total Protein 6.1 L, Albumin 3.0 L, Globulin 3.1, Albumin/Globulin Ratio 1.0 08/07/24 17:51: Urine Color Yellow, Urine Clarity Sl. Cloudy, Urine pH 5.0, Ur Specific [place] 1.020, Urine Protein 30 H, Urine Glucose (UA) 50 H, Urine Ketones Negative, Urine Occult Blood 25 H, Urine Nitrite Negative, Urine Bilirubin Negative, Urine Urobilinogen Normal, Ur Leukocyte Esterase 25 H, Urine RBC 0 SEEN, Urine WBC 25-50 SEEN, Ur Squamous Epith Cells 50-100 SEEN, Urine Bacteria 2+, Urine Mucus 0 SEEN 08/07/24 17:58: Troponin I High Sens 20, B-Natriuretic Peptide 206.5 H 08/07/24 19:49: Lactic Acid 1.5 Micro: Microbiology 08/07/24 15:31 Mucosa - Nose SARS-CoV-2, Influenza & RSV (PCR) - Final Imaging Radiology Impression Chest X-Ray 08/07/24 15:43 IMPRESSION: No acute disease Electronically Signed: Sabino Keen MD at 16:27 EST Reading Location ID and State: [address] [place] [address] Tel , Service support , Brain CT 08/07/24 21:44 IMPRESSION: No acute disease Electronically Signed: Sabino Keen MD at 22:17 EST Reading Location ID and State: [address] [place] [address] Tel , Service support , Assessment & Plan Assessment/Plan (1) Acute cystitis without hematuria: (2) Lactic acidosis: (3) Adverse drug reaction: QUALIFIERS: Encounter type: initial encounter Qualified Code(s): T50.905A - Adverse effect of unspecified drugs, medicaments and biological substances, initial encounter (4) Respiratory insufficiency: (5) Generalized weakness: (6) Morbid obesity with BMI of 45.0-49.9, adult: (7) Diabetes mellitus, type II: QUALIFIERS: Diabetes mellitus complication status: with unspecified complications Diabetes mellitus ferry terminal supervisor insulin use: without ferry terminal supervisor use Qualified Code(s): E11.8 - Type 2 diabetes mellitus with unspecified complications (8) Atrial fibrillation: QUALIFIERS: Atrial fibrillation type: unspecified chronic Qualified Code(s): I48.20 - Chronic atrial fibrillation, unspecified (9) Essential hypertension: PLAN: Plan 1. Acute Cystitis; without hematuria - Admit to general medical floor with telemetric monitoring. Continue empiric IV Rocephin begun in the ER and await culture and sensitivity data. Give Tylenol prn pain or fever. 2. Lactic Acidosis of 2.4 mmol/L present on admission thought to be due at least in part to Metformin-induced Lactic Acidosis complicating #1- Stop Metformin and add to list of allergies. Serialize lactates to confirm improvement. 3. Xnxcn-uo-Jmvspub Respiratory Insufficiency causing lightheadedness, malaise and generalized weakness after recent COVID-19 Pneumonia in morbidly obese patient with 'Pickwickian' phenotype and likely untreated OCTAVIO compounding #1 & #2 - Restart supplemental oxygen 2L NC and screen for OCTAVIO. Patient's CXR clear this admission. PT/OT and Case Management to consult and treat on-rounds in the AM for further recommendations with help appreciated in advance. 4. Morbid obesity; with BMI of 49 this admission adding to the pathology of #1 - #3 - Weight loss will be recommended. Check TSH. Patient should be set up with formal sleep study upon discharge to evaluate for potential underlying OCTAVIO. This complicates he case and may hamper recovery. 5. DM-2; of unknown control on Metformin - Hold Metformin as outlines above in #2. ADA diet. FSBS q. AC/HS plus SSI. Check HgbA1c to objectively evaluate quality of diabetic control. 6. Chronic atrial fibrillation; on Apixaban - Continue Apixaban and give Cardizem CD 240 mg PO daily to keep heart rate < 100 bpm. 7. Essential hypertension - Restart antihypertensive medications in AM once her condition improves. 8. Hyperlipidemia; with intolerance to statins - Noted. 9. Hypothyroidism - Resume Synthroid and check TSH. 10. Former tobacco abuse - Noted. 11. History of spyijupj-aq-doxmcu nonrheumatic aortic valve stenosis (2021) - Noted. 12. History of nonrheumatic mitral valve disease - Noted. 13. History of GI bleed - Noted with no signs of recurrence at this time. 14. History of cholecystectomy - Noted. 15. History or umbilical hernia; s/p repair - Noted. 16. History of bilateral cataract extraction - Noted. 17. Remote history of tubal ligation - Noted for the sake of completness. 18. Listed allergy to Gabapentin (?) - Noted. 19. Llisted allergy to Meloxicam (?) - Noted. 20. OA - Give Tylenol prn. Total time: Approximately (but not less than) 75 minutes. Charges/Coding Visit Charges Inpatient E&M: 22247 Init Hosp L3
[2024-08-07] MEDS: Ceftriaxone 1 GM/50 ML BAG IV (22:48)
[2024-08-08] VITALS (12 sets, daily range): BP systolic 107–139; BP diastolic 70–93; PULSE 79–109; RESP 16–18; TEMP 36.2–36.8; O2SAT 86–99; BMI 45.9
[2024-08-08 03:39] LABS: Bedside Glucose 229 mg/dL (74-106)
[2024-08-08] MEDS: Levothyroxine 150 MCG Tablet PO (05:06)
[2024-08-08] MEDS: dilTIAZem CD 240 MG Capsule PO (05:06)
[2024-08-08 05:33] LABS: Absolute Lymphocyte Count 1.38 X10^3/uL (0.83-4.51); Absolute Neutrophil Count 4.5 X10^3/uL (2.0-7.7); Basophil# 0.02 X10^3/uL; Basophil% 0.3 % (0-1); Eosinophil# 0.14 X10^3/uL; Eosinophils% 2.1 % (0-5); Hematocrit 39.3 % (37-47); Hemoglobin 12.2 g/dL (12.0-15.0); Lymphocyte # 1.38 X10^3/ul (0.83-4.51); Lymphocyte % 21.1 % (19-41); Mean Corpuscular Hgb 31.4 pg (27.0-32.0); Mean Platelet Vol. 10.4 fl (6.2-12.0); Monocyte# 0.49 X10^3/uL; Monocyte% 7.5 % (0-10); NRBC Flagged by Analyzer 0 % (0-5); Neutrophil # 4.47 X10^3/uL (2.7-7.7); Neutrophil % 68.2 % (47-70); Platelet Count 120 K/mm3 (150-450); RBC Distribution Width CV 12.7 % (11.6-14.6); RBC Distribution Width SD 46.6 fl (35.1-43.9); Red Blood Count 3.89 M/mm3 (4.2-5.4); White Blood Count 6.6 K/mm3 (4.4-11.0)
[2024-08-08 06:16] LABS: ALB/GLOB Ratio 0.9 RATIO (0.9-2.4); AST(SGOT) 11 U/L (15-37); Alanine Aminotransfer ALT/SGPT 16 U/L (13-56); Albumin, Serum 2.8 g/dL (3.2-5.0); Alkaline Phosphatase 70 U/L (45-117); Anion Gap 5 (5-15); BUN 12 mg/dL (7-18); BUN/Creat Ratio 13.5 RATIO (10-20); Chloride 104 mmol/L (98-107); Creatinine, Serum 0.89 mg/dL (0.55-1.02); EST Glomerular Filtration Rate 64 mL/min (>60); Est Glom Filt Rate - Afr Amer 78 mL/min (>60); Globulin 3.1 g/dL (2.2-4.2); Glucose 214 mg/dL (74-106); Magnesium 1.2 mg/dL (1.6-2.6); Phosphorus 3.8 mg/dL (2.5-4.9); Potassium 4.2 mmol/L (3.5-5.1); Protein, Total 5.9 g/dL (6.4-8.2); Sodium Level 139 mmol/L (136-145)
[2024-08-08] MEDS: Insulin Lispro 100 UNIT/ML INSULN.PEN SC ×4 (06:46→23:22)
--- NOTE | 2024-08-08 06:52 | PCM.PN.HOSP ---
Subjective Subjective Patient notes feeling significantly improved since initial ED arrival. Discussed plan of care which included continued treatment of acute urinary tract infection with possible discharge if continues to improve 08/09/2024. Discussed that urine culture is still resulting and preference would be to have sensitivities prior. Patient denies fevers, chills, nausea, emesis, abdominal pain, chest pain or dyspnea. Objective Data Objective Data Vital Signs: Vital Signs Temp Pulse Resp BP Pulse Ox O2 Del Method O2 Flow Rate 97.5 F L 104 H 16 107/72 96 Nasal Cannula 2 08/08/24 05:02 08/08/24 05:02 08/08/24 05:02 08/08/24 05:02 08/08/24 05:02 08/08/24 05:02 08/08/24 05:02 Oxygen Flow Rate (L/min) 2 Oxygen Delivery Method Nasal Cannula Weight: 285 lb 11.505 oz Body Mass Index (BMI) 45.9 Intake & Output: Intake and Output for Last 24 Hours 08/06/24 08/07/24 08/08/24 23:59 23:59 23:59 Intake Total 2550 / 2550 Balance 2550 / 2550 Lab / Micro Data 08/08/24 04:42 08/08/24 04:42 Labs: Laboratory Results - last 24 hr 08/07/24 15:27: WBC 7.2, RBC 4.29, Hgb 13.5, Hct 42.9, MCV 100.0 H, MCH 31.5, MCHC 31.5 L, RDW Std Deviation 46.0 H, RDW Coeff of Pattie 12.7, Plt Count 133 L, MPV 10.1, Immature Gran % (Auto) 0.300, Neut % (Auto) 67.0, Lymph % (Auto) 22.6, [place] % (Auto) 7.4, Eos % (Auto) 2.1, Baso % (Auto) 0.6, Absolute Neuts (auto) 4.8, Absolute Lymphs (auto) 1.63, Nucleated RBC % 0, PT 12.8, INR 1.0, APTT 26.7, Sodium 139, Potassium 4.1, Chloride 102, Carbon Dioxide 31.0, Anion Gap 6, BUN 15, Creatinine 1.10 H, Estim Creat Clear Calc 51.77, Est GFR (MDRD) Af Amer 61, Est GFR (MDRD) Non-Af 50 L, BUN/Creatinine Ratio 13.6, Glucose 291 H, Lactic Acid 2.4 H*, Calcium 9.4, Total Bilirubin 0.50, AST 10 L, ALT 19, Alkaline Phosphatase 74, Troponin I High Sens 18, Total Protein 6.1 L, Albumin 3.0 L, Globulin 3.1, Albumin/Globulin Ratio 1.0 08/07/24 17:51: Urine Color Yellow, Urine Clarity Sl. Cloudy, Urine pH 5.0, Ur Specific [place] 1.020, Urine Protein 30 H, Urine Glucose (UA) 50 H, Urine Ketones Negative, Urine Occult Blood 25 H, Urine Nitrite Negative, Urine Bilirubin Negative, Urine Urobilinogen Normal, Ur Leukocyte Esterase 25 H, Urine RBC 0 SEEN, Urine WBC 25-50 SEEN, Ur Squamous Epith Cells 50-100 SEEN, Urine Bacteria 2+, Urine Mucus 0 SEEN 08/07/24 17:58: Troponin I High Sens 20, B-Natriuretic Peptide 206.5 H 08/07/24 19:49: Lactic Acid 1.5 08/08/24 00:13: POC Glucose 229 H 08/08/24 04:42: WBC 6.6, RBC 3.89 L, Hgb 12.2, Hct 39.3, MCV 101.0 H, MCH 31.4, MCHC 31.0 L, RDW Std Deviation 46.6 H, RDW Coeff of Pattie 12.7, Plt Count 120 L, MPV 10.4, Immature Gran % (Auto) 0.800, Neut % (Auto) 68.2, Lymph % (Auto) 21.1, [place] % (Auto) 7.5, Eos % (Auto) 2.1, Baso % (Auto) 0.3, Absolute Neuts (auto) 4.5, Absolute Lymphs (auto) 1.38, Nucleated RBC % 0, Sodium 139, Potassium 4.2, Chloride 104, Carbon Dioxide 30.0, Anion Gap 5, BUN 12, Creatinine 0.89, Estim Creat Clear Calc 66.10, Est GFR (MDRD) Af Amer 78, Est GFR (MDRD) Non-Af 64, BUN/Creatinine Ratio 13.5, Glucose 214 H, Calcium 9.0, Phosphorus 3.8, Magnesium 1.2 L, Total Bilirubin 0.40, AST 11 L, ALT 16, Alkaline Phosphatase 70, Total Protein 5.9 L, Albumin 2.8 L, Globulin 3.1, Albumin/Globulin Ratio 0.9, TSH 21.500 H Micro: Microbiology 08/07/24 15:31 Mucosa - Nose SARS-CoV-2, Influenza & RSV (PCR) - Final Radiography Diagnostic Testing: Radiology Impression Chest X-Ray 08/07/24 15:43 IMPRESSION: No acute disease Electronically Signed: Sabino Keen MD at 16:27 EST Reading Location ID and State: [address] [place] [address] Tel , Service support , Brain CT 08/07/24 21:44 IMPRESSION: No acute disease Electronically Signed: Sabino Keen MD at 22:17 EST Reading Location ID and State: [address] [place] [address] Tel , Service support , Physical Exam Narrative Physical Examination: General: Awake, alert, oriented x 3 and cooperative, seated upright in MS bed in no apparent distress, notes feeling significantly improved since initial ED arrival. Skin: Normal color, normal turgor, no icterus, no cyanosis except for occasional stage ecchymoses, abrasion, intertrigo. HEENT: AT/NC, EOMI, PERRLA, MMM. Lungs: Diminished, greater bases, mildly increased respiratory rate but no distress, notes feeling improved,, no rales, ronchi or wheezing. Heart: Currently rate controlled, irregular; no gallop, rub audible. Abdomen: Soft, morbidly obese, NTTP including no tenderness to palpation in the suprapubic region, ND, distant BS. Extremities: No cyanosis, no clubbing, mild ankle to distal deng not markedly pitting edema. Neurological: Patient awake, alert, oriented as noted cognitive function intact; pupils equally reactive to light and accommodation, cranial nerves grossly normal, moving all 4 extremities, no focal deficits, strength moderately globally decreased, improving. Psychiatric: Affect appears fatigued otherwise normal, no acute evidence of depressive or anxiety feelings. Assessment & Plan Assessment/Plan (1) Acute cystitis without hematuria: (2) Lactic acidosis: (3) Adverse drug reaction: QUALIFIERS: Encounter type: initial encounter Qualified Code(s): T50.905A - Adverse effect of unspecified drugs, medicaments and biological substances, initial encounter (4) Respiratory insufficiency: (5) Generalized weakness: PLAN: Plan The patient is an 83 y/o F w/ PMHx: Diabetes mellitus type II, Morbid obesity, Chronic AF, HTN, HLD, GERD w/ Hx GI bleed, Former tobacco use, recent admission 06/2024 with treatment that time of COVID-pneumonia treated with IV remdesivir and Decadron requiring oxygen supplementation discharged on 2 L nasal cannula who presents to the [facility] ED on 08/07/2024 with lightheadedness, dizziness, malaise and fatigue. #1. Acute complicated urinary tract infection with associated hematuria with lactic acidosis likely secondary to infection and possible dehydration component: Admitted to medical surgical floor given stable appearance, UA upon ED evaluation remarkable, pending UCx, will continue to monitor I/Os, continue IV Rocephin w/ transition as able pending sensitivities and speciation. Lactic acid initially 2.4 trended down to 1.5, resolved. Given that patient presented with acute infection at this point do not think necessarily that metformin is the cause of the mild lactic acidosis and will defer listing it as an allergy at this time. Bld cx x 2 obtained in the ED. #2. Acute on chronic hypoxia secondary to potentially acute presentation #1 complicated by recent COVID-19 pneumonia with concurrent morbidly obese habitus, hypoventilation syndrome and untreated sleep apnea: Patient reinitiated on supplemental oxygen, trending pulse oximeter initiated, chest x-ray with no overt findings, encourage aggressive incentive spirometry. #3. Hypothyroidism with abnormal thyroid function studies: TSH 21.5, free T4 0.53, unfortunately obtained in the acute setting with infectious presentation thus certainly could be altered, but given this significant alteration some concern for undertreated hypothyroidism, will change 275 mcg daily and will need follow-up studies outpatient with primary care physician. #4. Hypomagnesemia: Magnesium level obtained and noted to be 1.2, IV supplementation administered, will repeat level in AM to assure resolved. #5. Intertrigo: We will continue patient nystatin powder topical application and routine skin care. #6. Diabetes mellitus type II, poorly controlled: Hold oral home regimen, continue home insulin regimen, hemoglobin A1c 9.5%, ADA diet, accu checks w/ ISS. Again, given infectious presentation, do not believe we can list metformin as an allergy. Nutrition consulted for education and teaching. #7. Chronic atrial fibrillation: We will continue patient home Cardizem and apixaban regimen. #8. Hypertension: Continue home regimen including diltiazem, Lasix cautiously given acute infectious presentation with low threshold to hold if needed, PRN hydralazine. #9. Valvular heart disease: 04/16/2023 echocardiogram with LVEF 55%, grade 2 diastolic dysfunction, severely enlarged LA, severe mitral annular calcification, mild MV stenosis, mean transmitral valve gradient 3.5 mmHg, RVSP 41 mmHg, mild aortic stenosis. Encourage continued outpatient follow-up with cardiology as previously arranged. #10. GERD with history of GI bleed: Not on any current regimen, if necessary may add Mylanta. #11. Hyperlipidemia: Noted statin intolerance, defer to outpatient. #12. Former tobacco use: Encourage continued tobacco cessation. #13. Morbid Obesity: Weight loss and lifestyle changes encouraged. #14. DVT prophylaxis: Will continue patient home Eliquis regimen. Charges/Coding Visit Charges Inpatient E&M: 49768 Subs Hosp L2
[2024-08-08 06:59] LABS: Bedside Glucose 208 mg/dL (74-106)
[2024-08-08 07:20] LABS: T4 Free Direct 0.53 ng/dL (0.76-1.46)
[2024-08-08 07:24] LABS: Hemoglobin A1c 9.5 % (3.8-5.6)
[2024-08-08] MEDS: 0.9% Normal Saline (500mL Bag) 500 ML 15 ML IV (08:37)
[2024-08-08] MEDS: Magnesium Sulfate 2 GM in Dextrose 5%-Water (100mL Bag) 100 ML IV (08:37)
[2024-08-08] MEDS: 0.9% Saline Lock 10 ML Syringe IV ×2 (08:39→23:18)
[2024-08-08] MEDS: APIXABAN 5 MG TABLET PO ×2 (11:18→23:18)
[2024-08-08] MEDS: Nystatin Powder 15gm Bottle 1 APPLIC TOPICAL ×2 (11:18→23:18)
[2024-08-08] MEDS: Lactobacillis Acidophilus 1 CAP PO ×4 (11:18→23:18)
[2024-08-08] MEDS: Furosemide 40 MG Tablet PO (11:18)
[2024-08-08 11:46] LABS: Bedside Glucose 271 mg/dL (74-106)
[2024-08-08 16:57] LABS: Bedside Glucose 276 mg/dL (74-106)
[2024-08-08] MEDS: Ceftriaxone 1 GM/50 ML BAG IV (23:18)
[2024-08-08 23:29] LABS: Bedside Glucose 193 mg/dL (74-106)
[2024-08-08] MEDS: Mag Hydrox/Al Hydrox/Simeth 30 ML UDC PO (23:29)
[2024-08-09] VITALS (8 sets, daily range): BP systolic 117–125; BP diastolic 53–71; PULSE 75–100; RESP 16–20; TEMP 36.6–36.8; O2SAT 91–98; BMI 45.6
--- NOTE | 2024-08-09 01:20 | CPS ---
PATIENT'S SAT'S DROPPED TO MID 80'S. RN PLACED PATIENT ON 2L AT 20:30 FOR REMAINDER OF TEST.
--- NOTE | 2024-08-09 01:21 | CPS ---
PATIENT'S SAT'S DROPPED TO MID 80'S WHILE ON RA. RN PLACED PATIENT ON 2L AT 20:30 FOR REMAINDER OF TEST
[2024-08-09] MEDS: Insulin Lispro 100 UNIT/ML INSULN.PEN SC ×2 (06:36→12:05)
[2024-08-09] MEDS: Levothyroxine 175 MCG Tablet PO (06:43)
[2024-08-09 06:53] LABS: Bedside Glucose 181 mg/dL (74-106)
[2024-08-09 07:13] LABS: Absolute Lymphocyte Count 1.05 X10^3/uL (0.83-4.51); Absolute Neutrophil Count 4.2 X10^3/uL (2.0-7.7); Basophil# 0.02 X10^3/uL; Basophil% 0.3 % (0-1); Eosinophil# 0.13 X10^3/uL; Eosinophils% 2.2 % (0-5); Hemoglobin 11.9 g/dL (12.0-15.0); Lymphocyte # 1.05 X10^3/ul (0.83-4.51); Lymphocyte % 17.8 % (19-41); Mean Corp Hgb Conc 30.5 g/dL (32-36); Mean Corpuscular Hgb 30.9 pg (27.0-32.0); Mean Corpuscular Volume 101.3 fL (81-99); Mean Platelet Vol. 10.2 fl (6.2-12.0); Monocyte# 0.47 X10^3/uL; NRBC Flagged by Analyzer 0 % (0-5); Neutrophil # 4.22 X10^3/uL (2.7-7.7); Neutrophil % 71.5 % (47-70); Platelet Count 109 K/mm3 (150-450); RBC Distribution Width CV 12.8 % (11.6-14.6); RBC Distribution Width SD 47.3 fl (35.1-43.9); Red Blood Count 3.85 M/mm3 (4.2-5.4); White Blood Count 5.9 K/mm3 (4.4-11.0)
[2024-08-09 07:29] LABS: AST(SGOT) 12 U/L (15-37); Alanine Aminotransfer ALT/SGPT 11 U/L (13-56); Albumin, Serum 2.9 g/dL (3.2-5.0); Alkaline Phosphatase 69 U/L (45-117); Anion Gap 3 (5-15); BUN 13 mg/dL (7-18); BUN/Creat Ratio 14.3 RATIO (10-20); Calcium,Total 9.1 mg/dL (8.5-10.1); Chloride 102 mmol/L (98-107); Creatinine, Serum 0.91 mg/dL (0.55-1.02); EST Glomerular Filtration Rate 63 mL/min (>60); Est Glom Filt Rate - Afr Amer 76 mL/min (>60); Estimated Creatinine Clearance 64.38 ml/min; Globulin 2.9 g/dL (2.2-4.2); Glucose 173 mg/dL (74-106); Magnesium 1.4 mg/dL (1.6-2.6); Phosphorus 3.5 mg/dL (2.5-4.9); Protein, Total 5.8 g/dL (6.4-8.2); Sodium Level 140 mmol/L (136-145)
--- NOTE | 2024-08-09 08:19 | PN.HOSP_ITS ---
Reason for Visit Reason for Visit: Diagnoses Type 2 diabetes mellitus with unspecified complications (08/07/24) Morbid (severe) obesity due to excess calories (08/07/24) Acidosis, unspecified (08/07/24) Essential (primary) hypertension (08/07/24) Chronic atrial fibrillation, unspecified (08/07/24) Acute cystitis without hematuria (08/07/24) Other abnormalities of breathing (08/07/24) Weakness (08/07/24) Adverse effect of unspecified drugs, medicaments and biological substances, initial encounter (08/07/24) Body mass index [BMI] 45.0-49.9, adult (08/07/24) Subjective Subjective Patient is an 83-year-old lady with multiple comorbidities admitted with progressive generalized weakness. Patient was found to have acute cystitis on admission treatment initiated per protocol admitted to regular nursing floor for further management Objective Data Objective Data Vital Signs: Vital Signs Temp Pulse Resp BP Pulse Ox O2 Del Method O2 Flow Rate 98 F 88 16 121/70 H 97 Nasal Cannula 2 08/09/24 05:00 08/09/24 07:27 08/09/24 05:00 08/09/24 05:00 08/09/24 07:27 08/09/24 07:27 08/09/24 07:27 FiO2 94 08/08/24 20:30 Oxygen Flow Rate (L/min) 2 Oxygen Delivery Method Nasal Cannula Weight: 128.7 kg Body Mass Index (BMI) 45.6 Intake & Output: Intake and Output for Last 24 Hours 08/07/24 08/08/24 08/09/24 23:59 23:59 23:59 Intake Total 2550 / 2550 155.75 / 155.75 Balance 2550 / 2550 155.75 / 155.75 Lab / Micro Data 08/09/24 06:16 08/09/24 06:16 Labs: Laboratory Results - last 24 hr 08/08/24 11:14: POC Glucose 271 H 08/08/24 16:33: POC Glucose 276 H 08/08/24 23:08: POC Glucose 193 H 08/09/24 06:16: WBC 5.9, RBC 3.85 L, Hgb 11.9 L, Hct 39.0, MCV 101.3 H, MCH 30.9, MCHC 30.5 L, RDW Std Deviation 47.3 H, RDW Coeff of Pattie 12.8, Plt Count 109 L, MPV 10.2, Immature Gran % (Auto) 0.200, Neut % (Auto) 71.5 H, Lymph % (Auto) 17.8 L, Barren % (Auto) 8.0, Eos % (Auto) 2.2, Baso % (Auto) 0.3, Absolute Neuts (auto) 4.2, Absolute Lymphs (auto) 1.05, Nucleated RBC % 0, Sodium 140, Potassium 4.0, Chloride 102, Carbon Dioxide 35.0 H, Anion Gap 3 L, BUN 13, Creatinine 0.91, Estim Creat Clear Calc 64.38, Est GFR (MDRD) Af Amer 76, Est GFR (MDRD) Non-Af 63, BUN/Creatinine Ratio 14.3, Glucose 173 H, Calcium 9.1, Phosphorus 3.5, Magnesium 1.4 L, Total Bilirubin 0.60, AST 12 L, ALT 11 L, Alkaline Phosphatase 69, Total Protein 5.8 L, Albumin 2.9 L, Globulin 2.9, Albumin/Globulin Ratio 1.0 08/09/24 06:35: POC Glucose 181 H Micro: Microbiology 08/07/24 15:27 Blood Culture (Wb) - Anticubital Right Bacteria Detection (PCR) - Final Coag Negative Staph 08/07/24 15:27 Blood Culture (Wb) - Anticubital Right Blood Culture - Preliminary Coag Negative Staph 08/07/24 17:51 Urine, Clean Catch Urine Culture - Preliminary Culture exhibits no growth. 08/07/24 15:31 Mucosa - Nose SARS-CoV-2, Influenza & RSV (PCR) - Final Physical Exam Narrative GENERAL: cooperative HEENT: Atraumatic; normocephalic EYES; Anicteric, Normal Conjunctiva NECK; supple, normal thyroid, RESPIRATORY: Diminished to auscultation CARDIOVASCULAR: Regular S1 S2, GI: soft, normoactive bowel sounds, : No Renal angle tenderness; EXTREMITIES: No edema, no clubbing, MUSCULOSKELETAL: no muscle wasting NEURO: Awake; no lateralizing signs. SKIN: No Rash PSYCH; Flat affect Assessment & Plan Assessment/Plan (1) Acute cystitis without hematuria: (2) Lactic acidosis: (3) Adverse drug reaction: QUALIFIERS: Encounter type: initial encounter Qualified Code(s): T50.906G - Adverse effect of unspecified drugs, medicaments and biological substances, initial encounter (4) Respiratory insufficiency: (5) Generalized weakness: PLAN: Plan Patient is an 83-year-old lady with multiple comorbidities admitted with progressive generalized weakness. Patient was found to have acute cystitis on admission treatment initiated per protocol admitted to regular nursing floor for further management 1. Acute complicated urinary tract infection ? Patient was treated with ceftriaxone and urine cultures so far negative to date 2. Acute on chronic hypoxia ? Secondary to patient recent COVID-19 pneumonia in the setting of obesity hypoventilation syndrome use of incentive spirometry encouraged patient is on supplemental oxygen did continue 3. Congestive heart failure with preserved ejection fraction -Echo from 04/16/2023 demonstrated EF of 55%. Patient is currently complaining 4. Diabetes mellitus type II -patient's oral hypoglycemics held. Placed on long acting insulin, Accu-Cheks a.c. and at bedtime and covered with sliding scale insulin 5. Hypothyroidism -patient is on levothyroxine TSH was markedly elevated patient levothyroxine dose adjusted plan is for patient to follow-up with primary care physician for repeat TSH levels and subsequent dose adjustment if warranted 6. Chronic bilateral lower extremity lymphedema - did encourage the use of bilateral HENRIETTA hoses 7. Dyslipidemia ? Per history 8. Chronic A-fib ? Rate controlled on systemic anticoagulation with apixaban 9. Class II obesity with BMI of 45.8 ? Complicating care weight loss advised 10. Obesity hypoventilation syndrome ? Complicating 11. Hypomagnesemia ? Corrected per protocol 12. DVT prophylaxis ? Patient already anticoagulated with apixaban Time spent in the patient's overall evaluation,decision-making process, review of diagnostic data, adjustment of management, discussion with other providers, nursing nursing and ancillary staff involved in patient's care documentation, ... Minutes
[2024-08-09] MEDS: Lactobacillis Acidophilus 1 CAP PO ×2 (09:37→14:09)
[2024-08-09] MEDS: APIXABAN 5 MG TABLET PO (09:37)
[2024-08-09] MEDS: Ergocalciferol 1.25 MG (50, 000 UNIT) Capsule PO (09:38)
[2024-08-09] MEDS: dilTIAZem CD 240 MG Capsule PO (09:38)
[2024-08-09] MEDS: Nystatin Powder 15gm Bottle 1 APPLIC TOPICAL (09:38)
[2024-08-09] MEDS: Furosemide 40 MG Tablet PO (09:39)
--- NOTE | 2024-08-09 10:59 | DS.PCM_ITS ---
Providers Date of Admission: 08/07/24 Date of Discharge: 08/09/24 Primary Care Physician: Dr. Mihaela Ybarra MD Reason For Visit: ACUTE CYSTITIS; W/O HEMATURIA AND LACTIC ACIDOSIS Diagnosis Discharge Diagnosis (1) Acute cystitis without hematuria: Status: Acute Code(s): N30.00 - Acute cystitis without hematuria (2) Lactic acidosis: Status: Acute Code(s): E87.20 - Acidosis, unspecified (3) Adverse drug reaction: Status: Acute Code(s): T50.905A - Adverse effect of unspecified drugs, medicaments and biological substances, initial encounter Qualifiers: Encounter type: initial encounter Qualified Code(s): T50.905A - Adverse effect of unspecified drugs, medicaments and biological substances, initial encounter (4) Respiratory insufficiency: Status: Acute Code(s): R06.89 - Other abnormalities of breathing (5) Generalized weakness: Status: Acute Code(s): R53.1 - Weakness Plan Patient is an 83-year-old lady with multiple comorbidities admitted with progressive generalized weakness. Patient was found to have acute cystitis on admission treatment initiated per protocol admitted to regular nursing floor for further management 1. Acute complicated urinary tract infection ? Patient was treated with ceftriaxone and urine cultures so far negative to date - discharged on cefdinir 2. Acute on chronic hypoxia ? Secondary to patient recent COVID-19 pneumonia in the setting of obesity hypoventilation syndrome use of incentive spirometry encouraged patient is on supplemental oxygen did continue 3. Congestive heart failure with preserved ejection fraction -Echo from 04/16/2023 demonstrated EF of 55%. Patient is currently complaining 4. Diabetes mellitus type II -patient's oral hypoglycemics held. Placed on long acting insulin, Accu-Cheks a.c. and at bedtime and covered with sliding scale insulin 5. Hypothyroidism -patient is on levothyroxine TSH was markedly elevated patient levothyroxine dose adjusted plan is for patient to follow-up with primary care physician for repeat TSH levels and subsequent dose adjustment if warranted 6. Chronic bilateral lower extremity lymphedema - did encourage the use of bilateral HENRIETTA hoses 7. Dyslipidemia ? Per history 8. Chronic A-fib ? Rate controlled on systemic anticoagulation with apixaban 9. Class II obesity with BMI of 45.8 ? Complicating care weight loss advised 10. Obesity hypoventilation syndrome ? Complicating 11. Hypomagnesemia ? Corrected per protocol 12. DVT prophylaxis ? Patient already anticoagulated with apixaban Time spent in the patient's overall evaluation,decision-making process, review of diagnostic data, adjustment of management, discussion with other providers, nursing nursing and ancillary staff involved in patient's care documentation, 35 Minutes Medications at Discharge Home Medications levothyroxine 150 mcg tablet 150 mcg PO DAILY THYROID 02/02/19 apixaban 5 mg tablet 5 mg PO BID BLOOD THINNER #60 tabs 11/11/23 metformin 500 mg tablet,extended release 24 hr 500 mg PO BREAKFAST DIABETES 11/11/23 furosemide 40 mg tablet 40 mg PO DAILY EDEMA 07/13/24 ergocalciferol (vitamin D2) 1,250 mcg (50,000 unit) capsule 1,250 mcg PO BID 08/07/24 cefdinir 300 mg capsule 300 mg PO BID #10 caps 08/09/24 diltiazem HCl 240 mg capsule,extended release 24 hr 240 mg PO DAILY #30 caps 08/09/24 Hospital Course Summary of Care Provided Minutes Spent on Discharge: 32 Physical Exam Narrative GENERAL: cooperative HEENT: Atraumatic; normocephalic EYES; Anicteric, Normal Conjunctiva NECK; supple, normal thyroid, RESPIRATORY: Diminished to auscultation CARDIOVASCULAR: Regular S1 S2, GI: soft, normoactive bowel sounds, : No Renal angle tenderness; EXTREMITIES: No edema, no clubbing, MUSCULOSKELETAL: no muscle wasting NEURO: Awake; no lateralizing signs. SKIN: No Rash PSYCH; Flat affect Weight / BMI Weight Weight: 128.7 kg Body Mass Index (BMI) 45.6 ABG / Lab / Microbiology Data 08/09/24 06:16 08/09/24 06:16 Laboratory: Laboratory Results - last 24 hr 08/08/24 11:14: POC Glucose 271 H 08/08/24 16:33: POC Glucose 276 H 08/08/24 23:08: POC Glucose 193 H 08/09/24 06:16: WBC 5.9, RBC 3.85 L, Hgb 11.9 L, Hct 39.0, MCV 101.3 H, MCH 30.9, MCHC 30.5 L, RDW Std Deviation 47.3 H, RDW Coeff of Pattie 12.8, Plt Count 109 L, MPV 10.2, Immature Gran % (Auto) 0.200, Neut % (Auto) 71.5 H, Lymph % (Auto) 17.8 L, [place] % (Auto) 8.0, Eos % (Auto) 2.2, Baso % (Auto) 0.3, Absolute Neuts (auto) 4.2, Absolute Lymphs (auto) 1.05, Nucleated RBC % 0, Sodium 140, Potassium 4.0, Chloride 102, Carbon Dioxide 35.0 H, Anion Gap 3 L, BUN 13, Creatinine 0.91, Estim Creat Clear Calc 64.38, Est GFR (MDRD) Af Amer 76, Est GFR (MDRD) Non-Af 63, BUN/Creatinine Ratio 14.3, Glucose 173 H, Calcium 9.1, Phosphorus 3.5, Magnesium 1.4 L, Total Bilirubin 0.60, AST 12 L, ALT 11 L, Alkaline Phosphatase 69, Total Protein 5.8 L, Albumin 2.9 L, Globulin 2.9, Albumin/Globulin Ratio 1.0 08/09/24 06:35: POC Glucose 181 H Microbiology: Microbiology 08/07/24 17:51 Urine, Clean Catch Urine Culture - Final Mixed Gram Positive Organisms 08/07/24 15:27 Blood Culture (Wb) - Anticubital Right Bacteria Detection (PCR) - Final Coag Negative Staph 08/07/24 15:27 Blood Culture (Wb) - Anticubital Right Blood Culture - Preliminary Coag Negative Staph 08/07/24 15:31 Mucosa - Nose SARS-CoV-2, Influenza & RSV (PCR) - Final D/C Instructions Discharge Diet: No restrictions Discharge Activity: Return to Normal Activity Call your doctor if you observe: Fever of 101 or Higher, Shortness of breath, Fainting spells and Chest pain Meaningful Use Info Meaningful Use Meaningful Use Diagnoses (Choose all that apply): None applicable Ischemic Stroke Statin Dosing Therapy Reference: STATIN DOSE THERAPY REFERENCE: * Patients > 75 years receive moderate or high dose statin therapy. * Patients 75 years or YOUNGER should receive HIGH intensity statin dose unless contraindicated. You will be required to document reason for non-treatment if statin daily dose does not meet guidelines. HIGH DOSE STATIN THERAPY DAILY Atorvastatin > than or = to 40 mg Rosuvastatin > than or = to 20 mg Amlodipine + Atorvastatin > than or = to 2.5/40 mg Ezetimibe + Simvastatin 10/80 mg Simvastatin 80mg Discharge Plan Admission Admit Date/Time: 08/07/24 23:21 Attending Provider: Nico Pratt Primary Care Provider: Mihaela Ybarra Consulting Providers: Nico Kinsey; Rema Phan Discharge Orders/Prescriptions Prescriptions: New diltiazem HCl 240 mg Capsule,Extended Release 24hr 240 mg PO DAILY Qty: 30 0RF cefdinir 300 mg capsule 300 mg PO BID Qty: 10 0RF Continued metformin 500 mg tablet extended release 24 hr 500 mg PO BREAKFAST apixaban 5 mg tablet 5 mg PO BID Qty: 60 11RF levothyroxine 150 tablet 150 mcg PO DAILY furosemide 40 mg tablet 40 mg PO DAILY ergocalciferol (vitamin D2) 1,250 mcg (50,000 unit) capsule 1,250 mcg PO BID Referrals / Follow Up: Mihaela Ybarra MD [Primary Care Provider] - Within 1 Week Disposition Disposition (needs filled in before D/C Order can be placed): Home, Self Care Charges/Coding Visit Charges Inpatient E&M: 35085 Disch Hosp >30min
[2024-08-09 11:29] LABS: Bedside Glucose 199 mg/dL (74-106)
--- NOTE | 2024-08-09 11:52 | PHA.DC_ITS ---
Pharmacy [facility] has performed discharge medication reconciliation and counseling for this patient. 1. CEFDINIR 300MG PO BID X 5 DAYS 2. DILTIAZEM CD 240MG PO DAILY The patient's discharge medication list was reviewed for discrepancies and discrepancies were resolved. The patient was counseled on the following discharge medications and changes in medications for homegoing were reviewed. The Reason for Use, instructions for use, and potential side effects were reviewed for all new medications. The patient's questions regarding all of their medications were answered. The patient was able to verbally demonstrate an understanding of their discharge medications. Patient counseled by registered pharmacy technicianMalik. Medications at Discharge Home Medications levothyroxine 150 mcg tablet 150 mcg PO DAILY THYROID 02/02/19 apixaban 5 mg tablet 5 mg PO BID BLOOD THINNER #60 tabs 11/11/23 metformin 500 mg tablet,extended release 24 hr 500 mg PO BREAKFAST DIABETES 11/11/23 furosemide 40 mg tablet 40 mg PO DAILY EDEMA 07/13/24 ergocalciferol (vitamin D2) 1,250 mcg (50,000 unit) capsule 1,250 mcg PO BID 08/07/24 cefdinir 300 mg capsule 300 mg PO BID #10 caps 08/09/24 diltiazem HCl 240 mg capsule,extended release 24 hr 240 mg PO DAILY #30 caps 08/09/24
--- NOTE | 2024-08-09 12:02 | CASEMGMT ---
DANO WHITE Readmission Note Previous Admission: 07/13/24-07/15/24 Diagnosis: COVID, hypoxia DC Disposition: Home with oxygen Current Admission: Admitted 08/07/24 Current Diagnosis: acute cystitis w/o hematuria and lactic acidosis Pt admitted to [facility] on index admission with above dx. Pt had an unremarkable CBC and chemistry profile, UA without infection but was COVID +. Pt was felt to have COVID pneumonia. Pt was treated with remdesivir and dexamethasone. Pt was dc'd with steroid and oxygen at 2-3 L cont through [employer] and her metoprolol succinate was increased. Pt represented to [facility] ER with lightheadedness. DANO WHITE into pt room, pt was sitting up in chair eating lunch with no oxygen on. Pt had just been ambulating halls with therapy. Pt states she feels strong enough to return home. She denies any homegoing needs. Pt states she has been wearing 2L of oxygen at home and has a pox. Pt reports taking her medications as ordered. She denies seeing since last hospital stay but states she does have the appt scheduled. She just does not know when it is off the top of her head. Pt nurse states pt does not require an increase in her oxygen Rx. Pt placed on 3L while DANO WHITE in room. Pt ready for dc this date. Pt to bring in portable oxygen tank for pt when he picks her up for dc. DC Plan: Home
--- NOTE | 2024-08-09 12:11 | NURSING ---
pt does not have her o2 tank with her, her spouse will need to bring it from home . pt will contact spouse.
== END 2024-08-09 14:36 | disposition home or self-care (01) | DRG 690 ==
LOC: ED 22:40 → MS3 08-08 00:36
PROVIDERS: Family Medicine; Admitting Provider Internal Medicine; Emergency Provider Emergency Medicine; PCP Internal Medicine; Visit Provider Internal Medicine
DX: N30.00 Acute cystitis without hematuria (principal); E66.2 Morbid (severe) obesity with alveolar hypoventilation; E87.20 Acidosis, unspecified; I50.30 Unspecified diastolic (congestive) heart failure; I48.20 Chronic atrial fibrillation, unspecified; Z68.42 Body mass index [BMI] 45.0-49.9, adult; I11.0 Hypertensive heart disease with heart failure; E11.9 Type 2 diabetes mellitus without complications; E03.9 Hypothyroidism, unspecified; Z79.4 Long term (current) use of insulin; E78.5 Hyperlipidemia, unspecified; L30.4 Erythema intertrigo; E83.42 Hypomagnesemia; R53.1 Weakness; Z87.891 Personal history of nicotine dependence; Z79.01 Long term (current) use of anticoagulants; E66.812 Obesity, class 2; Z79.84 Long term (current) use of oral hypoglycemic drugs; Z90.49 Acquired absence of other specified parts of digestive tract; Z98.41 Cataract extraction status, right eye; Z98.42 Cataract extraction status, left eye; Z98.51 Tubal ligation status; Z79.890 Hormone replacement therapy; R06.89 Other abnormalities of breathing; R31.9 Hematuria, unspecified; R09.02 Hypoxemia
CPT/HCPCS: 36415; 70450; 71046; 80053; 81001; 82962; 83036; 83605; 83735; 83880; 84100; 84439; 84443; 84484; 85025; 85610; 85730; 87040; 87077; 87086; 87088; 87149; 87186; 87631; 93005; 94668; 94762; 97116; 97162; 97166; 97535; 99285; A4216

== ENCOUNTER 2024-08-31 11:52 | Inpatient (IN) | payer MEDICARE, OTHER, SELFPAY ==
[2024-08-31] VITALS (18 sets, daily range): BP systolic 100–141; BP diastolic 71–110; PULSE 68–113; RESP 15–23; TEMP 36.6–36.7; O2SAT 77–97; BMI 48.7; BMI 47.0
--- NOTE | 2024-08-31 12:59 | EKG12_ITS ---
Test Reason : BACK PAIN Blood Pressure : */* mmHG Vent. Rate : 109 BPM Atrial Rate : * BPM P-R Int : * ms QRS Dur : 78 ms QT Int : 326 ms P-R-T Axes : * 39 42 degrees QTcB Int : 439 ms Atrial fibrillation with rapid ventricular response Low voltage QRS Cannot rule out Anterior infarct , age undetermined Abnormal ECG Confirmed by Jose L Cha ([id number]), advertising editor SEVERO ADAMS ([id number]) on 09/02/2024 11:00:05 AM Referred By: Confirmed By: Jose L Cha
--- NOTE | 2024-08-31 13:03 | CT_ITS ---
STUDY: CT BRAIN WITHOUT CONTRAST REASON FOR EXAM: Female, 83 years old. fall, weakness RADIATION DOSAGE (If Supplied By Facility): CTDIvol = ( 44.99 ) mGy, DLP = ( 846.73 ) mGycm TECHNIQUE: Transaxial CT imaging of the brain was performed without administration of intravenous contrast material. Individualized dose optimization techniques were used for this CT. COMPARISON: None head CT dated August 07, 2024. FINDINGS: No demonstrated skull fracture or pneumocephalus or subdural hemorrhage. No extra-axial fluid or midline shift or hydrocephalus is present. Normal soft tissue structures. There is hyperostosis frontalis internus. There is mild cerebral atrophy with widening of the extra-axial spaces and ventricular dilatation. There are areas of decreased attenuation within the white matter tracts of the supratentorial brain, consistent with microvascular disease changes. Normal basal ganglia and thalami. Normal brainstem. Normal cerebellum. There is no intracranial hemorrhage. There are no findings of an acute ischemic infarction. Normal visualized paranasal sinuses. CT/Brain/Head without Contrast IMPRESSION: 1. Chronic involutional changes of the brain. Electronically Signed: Nakul Pérez MD at 14:27 EST ,
--- NOTE | 2024-08-31 13:03 | CT_ITS ---
STUDY: CT LUMBAR SPINE WITHOUT CONTRAST REASON FOR EXAM: Female, 83 years old. fall, pain RADIATION DOSAGE (If Supplied By Facility): CTDIvol = ( 61.69 ) mGy, DLP = ( 1992.99 ) mGycm TECHNIQUE: The patient was scanned in a multi detector CT scanner. High resolution transaxial imaging was performed. Images were obtained from to . Sagittal and coronal images were reconstructed. Individualized dose optimization techniques were used for this CT. COMPARISON: None FINDINGS: Normal lumbar lordosis. There is no substantial scoliosis. No acute fracture or compression deformity. No displaced bony fragments. Moderate to severe multilevel degenerative changes are present. No visualized fracture of the sacrum or coccyx. The bony structures are demineralized. Bilateral pleural effusions are partially visualized. Normal visualized paraspinous soft tissue structures. CT/Spine Lumbar without Contrast IMPRESSION: 1. Multilevel degenerative changes, as described above. Electronically Signed: Nakul Pérez MD at 14:41 EST ,
--- NOTE | 2024-08-31 13:03 | CT_ITS ---
STUDY: CT ABDOMEN AND PELVIS WITHOUT CONTRAST REASON FOR EXAM: Female, 83 years old. back pain, fall RADIATION DOSAGE (If Supplied By Facility): CTDIvol = ( 34.45 ) mGy, DLP = ( 1962.65 ) mGycm TECHNIQUE: Transaxial images were obtained from the dome of the diaphragm to the symphysis pubis without oral contrast, and without intravenous contrast. Sagittal and coronal images were reconstructed. Individualized dose optimization techniques were used for this CT. COMPARISON: CT of abdomen and pelvis dated May 06, 2024 FINDINGS: The small left pleural effusion is small to moderate-sized right pleural effusion. Groundglass edema and interstitial thickening is present in the visualized lung bases as well as tree-in-bud nodular opacities likely due to endobronchial infection/inflammation. Subsegmental atelectasis is also present in the anterior aspect of the right lower lobe. * Mildly shrunken cirrhotic liver with coarsening of the parenchyma. No visualized mass or ductal dilatation. * Redemonstration of diffuse body wall edema/anasarca * No free air or abscess or portal venous gas or pneumatosis * No bowel dilatation or obstruction * Unremarkable uterus and adnexa Normal gallbladder and extrahepatic biliary system. Normal spleen. There are pancreatic calcifications in the distribution of the ducts consistent with chronic pancreatitis. Normal bilateral adrenal glands. There is mild cortical atrophy of the right kidney, consistent with chronic medical renal disease. There is moderate cortical atrophy of the left kidney, consistent with chronic medical renal disease. No hydronephrosis or radiopaque kidney stones. Several small cysts are present bilaterally which do not require any additional imaging or assessment. There is a small hiatal hernia. Normal small intestine. There are several sigmoid colonic diverticula consistent with diverticulosis. Unremarkable remaining colonic loops. There is non-visualization of the appendix. There is diffuse atherosclerotic calcification of the abdominal aorta, without a demonstrated aneurysm. Normal inferior vena cava. Normal retroperitoneum. Normal urinary bladder. Scarring is present in the umbilicus from prior surgical intervention. No demonstrated hernia. There are diffuse degenerative changes of the visualized lumbar spine. No demonstrated acute fracture or compression deformity. CT/Abdomen/Pelvis without Cont IMPRESSION: 1. Mildly shrunken cirrhotic liver with coarsening of the parenchyma. No visualized mass or ductal dilatation. 2. Redemonstration of diffuse body wall edema/anasarca 3. No free air or abscess or portal venous gas or pneumatosis 4. No bowel dilatation or obstruction 5. Mild sigmoid diverticulosis 6. Small to moderate-sized bilateral pleural effusions 7. No demonstrated acute fracture or compression deformity. Electronically Signed: Nakul Pérez MD at 14:22 EST ,
[2024-08-31] MEDS: fentaNYL 100 MCG/2 ML Ampul 50 MCG IV (13:18)
[2024-08-31 13:32] LABS: Absolute Lymphocyte Count 1.32 X10^3/uL (0.83-4.51); Absolute Neutrophil Count 6.5 X10^3/uL (2.0-7.7); Basophil# 0.05 X10^3/uL; Basophil% 0.6 % (0-1); Eosinophil# 0.07 X10^3/uL; Eosinophils% 0.8 % (0-5); Hemoglobin 13.3 g/dL (12.0-15.0); Lymphocyte # 1.32 X10^3/ul (0.83-4.51); Lymphocyte % 15.3 % (19-41); Mean Corp Hgb Conc 29.6 g/dL (32-36); Mean Corpuscular Hgb 31.4 pg (27.0-32.0); Mean Corpuscular Volume 106.1 fL (81-99); Mean Platelet Vol. 10.5 fl (6.2-12.0); Monocyte# 0.62 X10^3/uL; Monocyte% 7.2 % (0-10); NRBC Flagged by Analyzer 0.3 % (0-5); Neutrophil # 6.51 X10^3/uL (2.7-7.7); Neutrophil % 75.4 % (47-70); Platelet Count 156 K/mm3 (150-450); RBC Distribution Width CV 15.1 % (11.6-14.6); Red Blood Count 4.24 M/mm3 (4.2-5.4); White Blood Count 8.6 K/mm3 (4.4-11.0)
[2024-08-31 13:45] LABS: ALB/GLOB Ratio 0.9 RATIO (0.9-2.4); AST(SGOT) 23 U/L (15-37); Alanine Aminotransfer ALT/SGPT 20 U/L (13-56); Albumin, Serum 3.2 g/dL (3.2-5.0); Alkaline Phosphatase 113 U/L (45-117); Anion Gap 6 (5-15); BUN 18 mg/dL (7-18); BUN/Creat Ratio 18.7 RATIO (10-20); Calcium,Total 8.8 mg/dL (8.5-10.1); Chloride 99 mmol/L (98-107); Creatinine, Serum 0.96 mg/dL (0.55-1.02); EST Glomerular Filtration Rate 59 mL/min (>60); Est Glom Filt Rate - Afr Amer 71 mL/min (>60); Estimated Creatinine Clearance 63.35 ml/min; Globulin 3.4 g/dL (2.2-4.2); Glucose 242 mg/dL (74-106); Potassium 4.8 mmol/L (3.5-5.1); Protein, Total 6.6 g/dL (6.4-8.2); Sodium Level 137 mmol/L (136-145)
--- NOTE | 2024-08-31 14:26 | EX.ED.DYSGE1 ---
HPI History of Present Illness Chief Complaint: Back Informant: patient Narrative Narrative: Patient is an 83-year-old female with history of chronic anemia, UTIs, chronic O2 requirements, hypothyroidism, diabetes, hypertension, atrial fibrillation (on Eliquis and diltiazem), hyperlipidemia and valvular disease presenting with low back pain. Patient states that she had a fall she thinks yesterday and then yesterday evening started having pain in her lower back. She states is diffuse across her lower back. Slightly worse on the right. Is better at rest and worse with movement. Denies any radiation down her legs. States that she has been feeling a little forgetful but just feels overwhelmed. She states that she fell yesterday by stubbing her toe and falling in her living room. She is not exactly sure how she landed. She denies any GI or symptoms. She notes that she was just in the ER for fall. Patient counseled that there is no evidence of her having an ER visit in the last 24 to 48 hours. Chart review shows that patient most recently was seen in our ER on 08/07/2024 for lightheadedness/dizziness and patient ultimately was admitted for urinary tract infection. [facility] Medical History COVID-19 Atrial fibrillation Nonrheumatic aortic (valve) stenosis Nonrheumatic mitral valve disorder Essential hypertension HTN (hypertension) GI bleed Home Medications ?Medication ?Instructions ?Recorded ?Last Taken ?Type levothyroxine 150 mcg tablet 150 mcg PO DAILY THYROID 02/02/19 07/12/24 History apixaban 5 mg tablet 5 mg PO BID BLOOD THINNER #60 tabs 11/11/23 07/12/24 Rx metformin 500 mg tablet,extended 500 mg PO BREAKFAST DIABETES 11/11/23 07/12/24 History release 24 hr furosemide 40 mg tablet 40 mg PO DAILY EDEMA 07/13/24 07/12/24 History ergocalciferol (vitamin D2) 1,250 1,250 mcg PO BID 08/07/24 Unknown History mcg (50,000 unit) capsule diltiazem HCl 240 mg 240 mg PO DAILY #30 caps 08/09/24 Unknown Rx capsule,extended release 24 hr Allergy/AdvReac Type Severity Reaction Status Date / Time gabapentin Allergy Unknown Unknown Verified 08/31/24 12:10 meloxicam AdvReac Unknown Unknown Verified 08/31/24 12:10 [id number] Reductase AdvReac Unknown Unknown Verified 08/31/24 12:10 Inhibitor Family History Mother Cancer Colon CVA (cerebral vascular accident) Hypertension Father Myocardial infarction Surgical History History of umbilical hernia repair Hx of right knee surgery History of tonsillectomy History of bilateral cataract extraction History of tubal ligation History of cholecystectomy Social History Smoking Status: Former smoker alcohol intake: never substance use type: does not use caffeine: Yes Type: carbonated beverages Number of servings: 1 ROS ROS ED Constitutional Constitutional ED: Denies chills or fever(s) Cardiovascular Cardiovascular: Denies chest pain Respiratory/Chest Respiratory/Chest: Reports dyspnea; Denies cough Gastrointestinal Gastrointestinal: Denies abdominal pain, melena, nausea or vomiting Genitourinary Genitourinary ED: Denies dysuria or hematuria Musculoskeletal Musculoskeletal: Reports back pain Integumentary Denies rash Neurologic Neurologic: Reports weakness; Denies paresthesias Hematologic/Lymphatic Hematologic/Lymphatic: Reports easy bleeding, easy bruising and other Details: ON Eliquis EXAM Physical Exam Const Vital Signs: 08/31/24 12:10 08/31/24 12:14 08/31/24 12:19 Temperature 97.9 F Temperature Source Oral Pulse Rate 68 Respiratory Rate 20 H Blood Pressure 123/94 H Blood Pressure Mean 103 Pulse Ox 77 97 Oxygen Delivery Method Room Air Nasal Cannula Oxygen Flow Rate (L/min) 4 08/31/24 14:00 08/31/24 14:22 08/31/24 14:30 Temperature Temperature Source Pulse Rate 111 H 102 H Respiratory Rate 16 23 H 20 H Blood Pressure 117/79 116/71 Blood Pressure Mean 91 81 Pulse Ox 94 94 94 Oxygen Delivery Method Nasal Cannula Oxygen Flow Rate (L/min) 4 08/31/24 14:45 08/31/24 15:00 08/31/24 15:15 Temperature Temperature Source Pulse Rate 105 H 105 H Respiratory Rate 18 21 H 20 H Blood Pressure 100/78 121/87 H 122/104 H Blood Pressure Mean 86 98 109 Pulse Ox 94 95 Oxygen Delivery Method Oxygen Flow Rate (L/min) 08/31/24 15:30 08/31/24 15:45 08/31/24 15:55 Temperature 98.1 F Temperature Source Pulse Rate 109 H 105 H 113 H Respiratory Rate 17 18 20 H Blood Pressure 131/110 H 128/96 H 128/96 H Blood Pressure Mean 117 107 106 Pulse Ox 95 95 95 Oxygen Delivery Method Oxygen Flow Rate (L/min) 08/31/24 16:00 08/31/24 16:15 08/31/24 16:30 Temperature Temperature Source Pulse Rate 108 H 106 H 112 H Respiratory Rate 20 H 17 15 Blood Pressure 124/96 H 128/87 H 128/93 H Blood Pressure Mean 106 101 105 Pulse Ox 95 93 92 Oxygen Delivery Method Oxygen Flow Rate (L/min) Positive well nourished and well developed General Appearance ED: well developed and NAD HEENT Reports moist mucous membranes Eyes PERRL Neck supple and no JVD Chest Wall inspection of chest normal and palpation of chest normal Resp normal respiratory effort Resp Narrative: No increased work of breathing. Diminished breath sounds at the bases Cardio Rate: tachycardic Rhythm: abnormal rhythm irregularly irregular GI non-tender Inspection: abdominal distention Auscultation: normoactive bowel sounds Palpation: soft; Negative for tender or guarding Back/Spine no CVA tenderness Thoracic Spine / Upper Back: Negative for thoracic spinal tenderness or paraspinal muscle tenderness Lumbar Spine / Lower Back: lumbar spinal tenderness Extremity normal to inspection General Extremety ED: Negative for edema or tenderness General Extremity: Negative for edema Neuro Neuro Narrative: Oriented to self and location. 5/5 strength with plantar dorsiflexion. Negative straight leg test bilaterally. Sensorium / Orientation: alert Motor Exam: general weakness Psych mental status grossly normal Psych Narrative: Patient is intermittently confused but redirectable. Skin no rashes or lesions noted and no wounds MDM MDM MDM Narrative Medical decision making narrative: Patient's evaluated for worsening back pain. She reports a fall yesterday but when family arrives it sounds like she may be fell a week ago. She states she was just in the ER evaluated for this but her last ER visit was 08/07 and at that time she was admitted to the hospital for urinary tract infection lactic acidosis. Differential includes urinary tract infection, lumbar ago, traumatic lumbar injury, degenerative disc disease, atrial fibrillation with RVR, fluid overload, symptomatic anemia, renal colic intracranial hemorrhage, skull fracture,, subacute stroke Patient is she given fentanyl for pain. Upon arrival patient is also hypoxic at 77% on room air. She is placed on 2 L. Patient states that she sometimes wears oxygen at home. Her lab work is largely normal. CBC and CMP largely normal. Urinalysis obtained through straight cath is not consistent with infection. CT of the abdomen and pelvis shows chronic changes with no acute intra-abdominal process. There is redemonstration of diffuse body wall edema/anasarca and it does show small to moderate pleural effusions. This was not present on her CT of her abdomen pelvis on 05/06/2024 or on chest x-ray from 08/07/2024. Chest x-ray and BNP is added on. BNP is near baseline however patient does have history of diastolic heart failure and is obese which could falsely lower her BNP. Patient requires further pain medication as well. She does have some intermittent delirium in the room. ABGs added on. She was given 1 dose of oxycodone for further pain control. Is given her oral diltiazem for rate control as she did not take her rate control medication today. Is given IV Lasix. Will be admitted for intractable back pain, inability to ambulate as well as concern for diastolic heart failure exacerbation/fluid overload. Lab Data Attestation: I reviewed the patient's lab results. Labs: Laboratory Results - last 24 hr 08/31/24 08/31/24 13:25 15:20 WBC 8.6 RBC 4.24 Hgb 13.3 Hct 45.0 MCV 106.1 H MCH 31.4 MCHC 29.6 L RDW Std Deviation 58.0 H RDW Coeff of Pattie 15.1 H Plt Count 156 MPV 10.5 Immature Gran % (Auto) 0.700 Neut % (Auto) 75.4 H Lymph % (Auto) 15.3 L [place] % (Auto) 7.2 Eos % (Auto) 0.8 Baso % (Auto) 0.6 Absolute Neuts (auto) 6.5 Absolute Lymphs (auto) 1.32 Nucleated RBC % 0.3 Sodium 137 Potassium 4.8 Chloride 99 Carbon Dioxide 32.0 Anion Gap 6 BUN 18 Creatinine 0.96 Estim Creat Clear Calc 63.35 Est GFR (MDRD) Af Amer 71 Est GFR (MDRD) Non-Af 59 L BUN/Creatinine Ratio 18.7 Glucose 242 H Calcium 8.8 Total Bilirubin 1.20 H AST 23 ALT 20 Alkaline Phosphatase 113 B-Natriuretic Peptide 198.4 H Total Protein 6.6 Albumin 3.2 Globulin 3.4 Albumin/Globulin Ratio 0.9 Urine Color Straw Urine Clarity Clear Urine pH 6.0 Ur Specific [place] 1.020 Urine Protein 30 H Urine Glucose (UA) 50 H Urine Ketones Negative Urine Occult Blood Negative Urine Nitrite Negative Urine Bilirubin 1 H Urine Urobilinogen 4 H Ur Leukocyte Esterase Negative Urine RBC 0 SEEN Urine WBC 0 SEEN Ur Squamous Epith Cells 0-5 SEEN Urine Bacteria RARE Urine Mucus RARE Radiography Chest X-Ray - ED: 1 View, Read by ED Physician, CHF and Left Effusion Diagnostic Testing: Clinical Impression(s) from Imaging Studies Abdomen/Pelvis CT 08/31/24 13:03 IMPRESSION: 1. Mildly shrunken cirrhotic liver with coarsening of the parenchyma. No visualized mass or ductal dilatation. 2. Redemonstration of diffuse body wall edema/anasarca 3. No free air or abscess or portal venous gas or pneumatosis 4. No bowel dilatation or obstruction 5. Mild sigmoid diverticulosis 6. Small to moderate-sized bilateral pleural effusions 7. No demonstrated acute fracture or compression deformity. Electronically Signed: Nakul Pérez MD at 14:22 EST Reading Location ID and State: [facility] / MD , Service support , Brain CT 08/31/24 13:03 IMPRESSION: 1. Chronic involutional changes of the brain. Electronically Signed: Nakul Pérez MD at 14:27 EST , Lumbar Spine CT 08/31/24 13:03 IMPRESSION: 1. Multilevel degenerative changes, as described above. Electronically Signed: Nakul Pérez MD at 14:41 EST , Rhythm Strip Rhythm Strip: A-fib Rate: 109 Ectopy: None EKG Initial EKG: Attestation: I personally reviewed and interpreted this EKG as follows: Interpretation: Atrial Fibrillation Comments: Atrial fibrillation at a rate of 109 bpm Normal axis Normal intervals Normal ST segments Low voltage QRS Management Discussion w/another healthcare provider: Hospitalist Discharge Plan Triage Chief Complaint: Back ED Provider: María Ritchie Dx/Rx/DC Orders Clinical Impression: Acute on chronic diastolic heart failure with preserved ejection fraction, Atrial fibrillation, senior care current use of anticoagulant, Acute on chronic hypoxic respiratory failure, Intractable back pain, Debility Prescriptions: No Action metformin 500 mg tablet extended release 24 hr 500 mg PO BREAKFAST apixaban 5 mg tablet 5 mg PO BID Qty: 60 11RF levothyroxine 150 tablet 150 mcg PO DAILY furosemide 40 mg tablet 40 mg PO DAILY ergocalciferol (vitamin D2) 1,250 mcg (50,000 unit) capsule 1,250 mcg PO BID diltiazem HCl 240 mg Capsule,Extended Release 24hr 240 mg PO DAILY Qty: 30 0RF Primary Care Provider: Mihaela Ybarra Referrals: Mihaela Ybarra MD [Primary Care Provider] - Print Language: Bel[place]an Disposition Disposition: Acute Care Hospital [facility]
[2024-08-31] MEDS: dilTIAZem CD 240 MG Capsule PO (14:51)
[2024-08-31] MEDS: oxyCODONE 5 MG Tablet PO (15:26)
[2024-08-31 15:31] LABS: Red Blood Cells-Urine 0 SEEN /hpf (0-5); White Blood Cells 0 SEEN /hpf (0-5)
[2024-08-31 15:55] LABS: Color, Urine Straw (Yellow); Glucose, Dipstick 50 mg/dl (Normal); Ketone-Dipstick Negative (Negative); Leukocyte Esterase-Dipstick Negative /ul (Negative); Nitrite-Dipstick Negative (Negative); Occult Blood-Urine Negative /ul (Negative); Protein-Dipstick 30 mg/dl (Negative); Urine Clarity Clear (Clear); Urine Urobilinogen 4 mg/dl (Normal)
[2024-08-31 16:13] LABS: BNP,B-Type NATRIURETIC PEPTIDE 198.4 pg/mL (0-100)
[2024-08-31 16:20] LABS: Urine Bilirubin Dipstick 1 mg/dL (Negative)
[2024-08-31] MEDS: Furosemide 40 MG/4 ML Vial IV (16:40)
--- NOTE | 2024-08-31 16:40 | RAD_ITS ---
STUDY: X-RAY CHEST REASON FOR EXAM: Female, 83 years old. pleural effusions TECHNIQUE: AP portable COMPARISON: August 07, 2024 FINDINGS: There is less than optimal inspiratory effort and bibasilar atelectasis or infiltrates.. There also appears to be a small left pleural effusion. The heart is enlarged although exaggerated by radiographic technique.. Dense calcification of mitral annulus. Normal mediastinum and trent. Normal visualized pulmonary arteries. Normal visualized aortic arch and descending thoracic aorta. Normal visualized thoracic spine. Normal visualized ribs, clavicles, and shoulders. There is no demonstrated abnormality of the visualized soft tissue structures of the upper abdomen. RAD/Chest 1 View (Portable) IMPRESSION: Diminished inspiratory effort and bibasilar atelectasis or infiltrates. Probable small left pleural effusion Electronically Signed: Jose Brooks MD at 16:57 EST ,
[2024-08-31 16:43] LABS: Bacteria RARE /hpf (None Seen); Mucous, Urine RARE /hpf (<or=2+); Squamous Epithelial Cells - UA 0-5 SEEN /hpf (5-10)
[2024-08-31 17:24] LABS: Allen Test Positive; Base Excess 8 mmol/L (-2 to +2); Bicarbonate 34.9 mmol/L (22-26); Blood Gas Specimen Type ART; Mode Not entered; O2 Delivery Device Cannula; PO2 67 mmHG (75-100); SITE R Radial; SO2 90 % (95-99); Total Carbon Dioxide 37 mmol/L; pCO2 72.1 mmHg (35-45); pH 7.29 (7.35-7.45)
--- NOTE | 2024-08-31 17:47 | HP.PCM.HOS_ITS ---
HPI - General General Date of Admission: 08/31/24 Date of Service: 08/31/24 Chief Complaint: Back pain, dizziness, confusion HPI Narrative Eh GILLIAM, is a 83 F with a history of hypothyroidism, heart failure preserved ejection fraction, morbid obesity, back pain, cirrhosis, A-fib, diabetes who presented to [facility] ED 08/31/2024 with back pain, confusion, dizziness, shortness of breath. In the ED she was hypoxic down to 77% on arrival and had small bilateral pleural effusions seen on upper portion of CT abdomen and pelvis as well as anasarca and had a BNP of 198 there is concern for CHF exacerbation. Patient was poor historian and had also complained of back pain so abdominal CT obtained and lumbar CT obtained which showed diffuse body wall anasarca but no other acute pathology. Given patient's heart failure exacerbation and hypoxia hospitalist contacted for admission. It was requested that ABG also be obtained given her altered mental status and body habitus concerning for possible underlying sleep apnea. Patient evaluated at bedside with present, she reports that off-and-on over the past couple of weeks she has been confused and dizzy and short of breath. Does wear oxygen occasionally but not all the time though they do have some at the house. Patient denies known history of sleep apnea and does not use a CPAP. No cough or fever. Does have some back pain which she reports is chronic however she fell yesterday and has some increased pain in mid to low back. Denies any increased swelling in her lower extremities, no chest pain. Patient no other new or focal complaints [facility] Medical History (Updated 08/31/24 @ 17:51 by Radha Powell) Atrial fibrillation COVID-19 Diabetes Essential hypertension Former smoker GI bleed HTN (hypertension) Hypertension Nonrheumatic aortic (valve) stenosis Nonrheumatic mitral valve disorder On home oxygen therapy Home Medications ?Medication ?Instructions ?Recorded ?Last Taken ?Type levothyroxine 150 mcg tablet 150 mcg PO DAILY THYROID 02/02/19 07/12/24 History apixaban 5 mg tablet 5 mg PO BID BLOOD THINNER #60 tabs 11/11/23 07/12/24 Rx metformin 500 mg tablet,extended 500 mg PO BREAKFAST DIABETES 11/11/23 07/12/24 History release 24 hr furosemide 40 mg tablet 40 mg PO DAILY EDEMA 07/13/24 07/12/24 History ergocalciferol (vitamin D2) 1,250 1,250 mcg PO BID 08/07/24 Unknown History mcg (50,000 unit) capsule diltiazem HCl 240 mg 240 mg PO DAILY #30 caps 08/09/24 Unknown Rx capsule,extended release 24 hr Allergy/AdvReac Type Severity Reaction Status Date / Time gabapentin Allergy Unknown Unknown Verified 08/31/24 12:10 meloxicam AdvReac Unknown Unknown Verified 08/31/24 12:10 [id number] Reductase AdvReac Unknown Unknown Verified 08/31/24 12:10 Inhibitor Family History Mother Cancer Colon CVA (cerebral vascular accident) Hypertension Father Myocardial infarction Surgical History History of bilateral cataract extraction History of cholecystectomy History of tonsillectomy History of tubal ligation History of umbilical hernia repair Hx of right knee surgery Social History Smoking Status: Former smoker alcohol intake: never substance use type: does not use caffeine: Yes Type: carbonated beverages Number of servings: 1 ROS ROS Narrative General: Denies fever/chills HENT: denies stuffy nose, denies sore throat EYES: Denies changes in vision Resp: Intermittent increasing shortness of breath especially on exertion Cardiac: Denies chest pain GI: Denies abdominal pain, denies changes in bowel, denies nausea/vomiting : Denies changes in urination Extremity: Denies swelling MSK: Somewhat generally weak also some mid to lower back pain Neuro: Denies any numbness/tingling, has had some dizziness and confusion Heme: Denies any bleeding or bruising Skin: Denies rashes Psychiatric: No complaints voiced Vital Signs Vital Signs Vital Signs: 08/31/24 12:10 08/31/24 12:14 08/31/24 12:19 Temperature 97.9 F Temperature Source Oral Pulse Rate 68 Respiratory Rate 20 H Blood Pressure 123/94 H Blood Pressure Mean 103 Pulse Ox 77 97 Oxygen Delivery Method Room Air Nasal Cannula Oxygen Flow Rate (L/min) 4 08/31/24 14:00 08/31/24 14:22 08/31/24 14:30 Temperature Temperature Source Pulse Rate 111 H 102 H Respiratory Rate 16 23 H 20 H Blood Pressure 117/79 116/71 Blood Pressure Mean 91 81 Pulse Ox 94 94 94 Oxygen Delivery Method Nasal Cannula Oxygen Flow Rate (L/min) 4 08/31/24 14:45 08/31/24 15:00 08/31/24 15:15 Temperature Temperature Source Pulse Rate 105 H 105 H Respiratory Rate 18 21 H 20 H Blood Pressure 100/78 121/87 H 122/104 H Blood Pressure Mean 86 98 109 Pulse Ox 94 95 Oxygen Delivery Method Oxygen Flow Rate (L/min) 08/31/24 15:30 08/31/24 15:45 08/31/24 15:55 Temperature 98.1 F Temperature Source Pulse Rate 109 H 105 H 113 H Respiratory Rate 17 18 20 H Blood Pressure 131/110 H 128/96 H 128/96 H Blood Pressure Mean 117 107 106 Pulse Ox 95 95 95 Oxygen Delivery Method Oxygen Flow Rate (L/min) 08/31/24 16:00 08/31/24 16:15 08/31/24 16:30 Temperature Temperature Source Pulse Rate 108 H 106 H 112 H Respiratory Rate 20 H 17 15 Blood Pressure 124/96 H 128/87 H 128/93 H Blood Pressure Mean 106 101 105 Pulse Ox 95 93 92 Oxygen Delivery Method Oxygen Flow Rate (L/min) Weight Weight: 137 kg Body Mass Index (BMI) 48.7 Physical Exam Narrative General: Alert, oriented, does have some confusion but answers most questions appropriately HEENT: Atraumatic, normocephalic Eyes: Anicteric, normal conjunctiva, extraocular movements grossly intact Neck: Supple Respiratory: Diminished at the bases, slight increase in respiratory effort Cardiovascular: Low-grade tachycardia GI: Soft, nontender, nondistended Extremities: No pitting edema Musculoskeletal: Moving all extremities Neuro: No overt focal neurological deficits Skin: No rashes appreciated Psych: Cooperative Results Lab / Micro Data 08/31/24 13:25 08/31/24 13:25 Labs: Laboratory Results - last 24 hr 08/31/24 13:25: WBC 8.6, RBC 4.24, Hgb 13.3, Hct 45.0, MCV 106.1 H, MCH 31.4, M CHC 29.6 L, RDW Std Deviation 58.0 H, RDW Coeff of Pattie 15.1 H, Plt Count 156, MPV 10.5, Immature Gran % (Auto) 0.700, Neut % (Auto) 75.4 H, Lymph % (Auto) 15.3 L, [place] % (Auto) 7.2, Eos % (Auto) 0.8, Baso % (Auto) 0.6, Absolute Neuts (auto) 6.5, Absolute Lymphs (auto) 1.32, Nucleated RBC % 0.3, Sodium 137, Potassium 4.8, Chloride 99, Carbon Dioxide 32.0, Anion Gap 6, BUN 18, Creatinine 0.96, Estim Creat Clear Calc 63.35, Est GFR (MDRD) Af Amer 71, Est GFR (MDRD) Non-Af 59 L, BUN/Creatinine Ratio 18.7, Glucose 242 H, Calcium 8.8, Total Bilirubin 1.20 H, AST 23, ALT 20, Alkaline Phosphatase 113, B-Natriuretic Peptide 198.4 H, Total Protein 6.6, Albumin 3.2, Globulin 3.4, Albumin/Globulin Ratio 0.9 08/31/24 15:20: Urine Color Straw, Urine Clarity Clear, Urine pH 6.0, Ur Specific [place] 1.020, Urine Protein 30 H, Urine Glucose (UA) 50 H, Urine Ketones Negative, Urine Occult Blood Negative, Urine Nitrite Negative, Urine Bilirubin 1 H, Urine Urobilinogen 4 H, Ur Leukocyte Esterase Negative, Urine RBC 0 SEEN, Urine WBC 0 SEEN, Ur Squamous Epith Cells 0-5 SEEN, Urine Bacteria RARE, Urine Mucus RARE ABG Data ABG results: ABG 08/31/24 17:19 Specimen Type ART Sample Site R Radial pH 7.29 L Bicarbonate Actual 34.9 H Total CO2 37 Base Excess 8 H O2 Saturation 90 L ABG pCO2 72.1 H* ABG pO2 67 L González Test Positive O2 Delivery Device Cannula Vent Mode Not entered Crit Call To/Read Back Yes Blood Gas Notified Whom khushi rn Blood Gas Notified Time 17:22:12 Rhythm Strip Rhythm Strip: A-fib Rate: 109 Ectopy: None Imaging Radiology Impression Abdomen/Pelvis CT 08/31/24 13:03 IMPRESSION: 1. Mildly shrunken cirrhotic liver with coarsening of the parenchyma. No visualized mass or ductal dilatation. 2. Redemonstration of diffuse body wall edema/anasarca 3. No free air or abscess or portal venous gas or pneumatosis 4. No bowel dilatation or obstruction 5. Mild sigmoid diverticulosis 6. Small to moderate-sized bilateral pleural effusions 7. No demonstrated acute fracture or compression deformity. Electronically Signed: Nakul Pérez MD at 14:22 EST , Brain CT 08/31/24 13:03 IMPRESSION: 1. Chronic involutional changes of the brain. Electronically Signed: Nakul Pérez MD at 14:27 EST , Lumbar Spine CT 08/31/24 13:03 IMPRESSION: 1. Multilevel degenerative changes, as described above. Electronically Signed: Nakul Pérez MD at 14:41 EST , Chest X-Ray 08/31/24 16:40 IMPRESSION: Diminished inspiratory effort and bibasilar atelectasis or infiltrates. Probable small left pleural effusion Electronically Signed: Jose Brooks MD at 16:57 EST Reading Location ID and State: [facility] / [place] Tel , Service support , Assessment & Plan Assessment/Plan (1) Acute on chronic diastolic heart failure with preserved ejection fraction: PLAN: Plan # Hypoxia secondary to acute exacerbation of chronic heart failure with preserved ejection fraction -Admit to telemetry -BNP 198 -Bilateral pleural effusions seen at lung bases on CT abdomen pelvis -Continue IV lasix -Last echo EF 55% with at least grade 2 diastolic dysfunction on 04/16/2023 -Repeat echo ordered -Daily weights, I's and O's -Also check respiratory panels given the extent of her hypoxia # Metabolic encephalopathy suspect secondary to hypercapnia -ABG revealed acidosis and a pCO2 of 72 -Patient be placed on BiPAP # Back pain -Lumbar CT with no acute pathology -Pain control -PT/OT -Case management #Type 2 diabetes mellitus -Glucose checks and sliding scale insulin # Falls -PT/OT -Case management # A-fib -Continue Eliquis and diltiazem #Hypothyroidism -Continue Synthroid -Did have an elevated TSH with adjustments in Synthroid, will repeat #Morbid obesity -BMI documented as 47 kg/m? at time of admission -Complicates treatment, prognosis, outcomes -Recommend weight loss and lifestyle changes #DVT ppx: Continue Nichole Queen MD Charges/Coding Visit Charges Inpatient E&M: 62923 Init Hosp L2
--- NOTE | 2024-08-31 20:17 | ECHOCS_ITS ---
Reason For Study: CHF Procedure This was a 2D Doppler, Color Flow transthoracic echocardiogram. The study was technically difficult. Exam performed portable in patient room. Left Ventricle Normal LV size. The estimated ejection fraction is 60 %. Unable to assess diastolic dysfunction. No regional wall motion abnormalities noted. Right Ventricle Normal RV size. Normal systolic function. Atria There is severe biatrial dilatation. No doppler evidence for ASD. Mitral Valve There is severe mitral annular calcification. There is no mitral valve stenosis. Trivial mitral valve insufficiency. Tricuspid Valve There is no tricuspid stenosis. Trivial tricuspid valve insufficiency. Unable to estimate RV systolic pressure due to insufficient tricuspid regurgitant envelope. Aortic Valve Moderate diffuse aortic valve thickening. Mild to moderate aortic stenosis. No aortic valve insufficiency. Pulmonic Valve There is no pulmonic valvular stenosis. No pulmonic valve insufficiency. Great Vessels Normal aortic root. Pericardium/Pleural No pericardial effusion. Medication Diluted definity 3ml given slow IV push to enhance endocardial definition. MMode/2D Measurements & Calculations LVIDd: 4.8 cm IVSd: 1.1 cm LVOT diam: 2.0 cm LVIDs: 3.4 cm LVPWd: 1.0 cm RVDd: 3.4 cm FS: 29.6 % LVOT area: 3.0 cm2 Ao root diam: 3.1 cm LAV(MOD-bp): 71.7 ml LA A4 area: 25.2 cm2 LAV(MOD-bp) Indexed: 30.6 ml/m2 LAV(MOD-sp2): 73.9 ml LAV(MOD-sp4): 70.0 ml LA dimension(2D): 4.3 cm TAPSE: 1.7 cm RA A4 area: 22.6 cm2 Doppler Measurements & Calculations MV E max alvarez: 141.3 cm/sec MV V2 max: 159.5 cm/sec MV P1/2t max alvarez: 152.7 cm/sec MV max P.2 mmHg MV P1/2t: 123.2 msec MV V2 mean: 80.6 cm/sec MV dec slope: 362.8 cm/sec2 MV mean P.3 mmHg MV V2 VTI: 35.0 cm MVA(P1/2t): 1.8 cm2 MVA(VTI): 1.7 cm2 Ao V2 max: 268.5 cm/sec LV V1 max: 104.1 cm/sec SV(LVOT): 58.3 ml Ao max P.0 mmHg LV V1 max P.4 mmHg Ao V2 mean: 191.5 cm/sec LV V1 mean P.3 mmHg Ao mean P.6 mmHg LV V1 mean: 69.3 cm/sec Ao V2 VTI: 47.1 cm LV V1 VTI: 19.4 cm AV (velocity ratio): 0.41 MORIAH(I,D): 1.2 cm2 MORIAH(V,D): 1.2 cm2 PA V2 max: 98.8 cm/sec TR max alvarez: 300.8 cm/sec TR max P.2 mmHg ECHO/Echo Complete W/ Contrast Interpretation Summary The estimated ejection fraction is 60 %. Unable to assess diastolic dysfunction. Trivial mitral valve insufficiency. Mild to moderate aortic stenosis. There is severe biatrial dilatation. Ordering Physician: Jordana Queen Referring Physician: REJI DERAS Performed By: Fabi Vera RDCS
[2024-08-31] MEDS: APIXABAN 5 MG TABLET PO (22:24)
[2024-08-31] MEDS: Acetaminophen 500 MG Tablet 1000 MG PO (22:25)
[2024-08-31] MEDS: Insulin Lispro 100 UNIT/ML INSULN.PEN SC (22:25)
[2024-08-31 23:20] LABS: Bedside Glucose 221 mg/dL (74-106)
[2024-09-01] VITALS (7 sets, daily range): BP systolic 104–127; BP diastolic 60–74; PULSE 88–98; RESP 16–18; TEMP 36.1–36.6; O2SAT 91–96
--- NOTE | 2024-09-01 00:35 | CPS ---
Attempted Bipap with pt , 09/03 with good volume returned but pt could not tolerate bipap at all. she said it felt like she was being smothered.
[2024-09-01] MEDS: Levothyroxine 150 MCG Tablet PO (06:00)
[2024-09-01] MEDS: Acetaminophen 500 MG Tablet 1000 MG PO ×3 (06:00→23:26)
[2024-09-01] MEDS: Insulin Lispro 100 UNIT/ML INSULN.PEN SC ×4 (06:00→23:26)
[2024-09-01 07:01] LABS: Bedside Glucose 165 mg/dL (74-106)
[2024-09-01 07:35] LABS: Absolute Lymphocyte Count 1.34 X10^3/uL (0.83-4.51); Absolute Neutrophil Count 5.4 X10^3/uL (2.0-7.7); Basophil# 0.04 X10^3/uL; Basophil% 0.5 % (0-1); Eosinophil# 0.09 X10^3/uL; Eosinophils% 1.2 % (0-5); Hematocrit 40.6 % (37-47); Lymphocyte # 1.34 X10^3/ul (0.83-4.51); Lymphocyte % 17.4 % (19-41); Mean Corp Hgb Conc 29.6 g/dL (32-36); Mean Corpuscular Hgb 31.8 pg (27.0-32.0); Mean Corpuscular Volume 107.7 fL (81-99); Mean Platelet Vol. 10.7 fl (6.2-12.0); Monocyte# 0.72 X10^3/uL; Monocyte% 9.3 % (0-10); NRBC Flagged by Analyzer 0.3 % (0-5); Neutrophil # 5.38 X10^3/uL (2.7-7.7); Neutrophil % 69.8 % (47-70); Platelet Count 152 K/mm3 (150-450); RBC Distribution Width CV 15.3 % (11.6-14.6); RBC Distribution Width SD 60.2 fl (35.1-43.9); Red Blood Count 3.77 M/mm3 (4.2-5.4); White Blood Count 7.7 K/mm3 (4.4-11.0)
[2024-09-01 08:08] LABS: Anion Gap 4 (5-15); BUN 21 mg/dL (7-18); BUN/Creat Ratio 19.1 RATIO (10-20); Calcium,Total 8.9 mg/dL (8.5-10.1); Chloride 99 mmol/L (98-107); EST Glomerular Filtration Rate 50 mL/min (>60); Est Glom Filt Rate - Afr Amer 61 mL/min (>60); Estimated Creatinine Clearance 54.09 ml/min; Glucose 238 mg/dL (74-106); Potassium 4.5 mmol/L (3.5-5.1); Sodium Level 138 mmol/L (136-145)
[2024-09-01] MEDS: dilTIAZem CD 240 MG Capsule PO (09:51)
[2024-09-01] MEDS: APIXABAN 5 MG TABLET PO ×2 (09:51→23:26)
[2024-09-01] MEDS: Furosemide 40 MG/4 ML Vial IV (09:51)
--- NOTE | 2024-09-01 10:24 | PN.HOSP_ITS ---
Reason for Visit Reason for Visit: Diagnoses Acute on chronic diastolic (congestive) heart failure (08/31/24) Subjective Subjective Patient is an 83-year-old lady with multiple comorbidities admitted with progressive shortness of breath and altered mental status. An assessment of acute hypoxia secondary to congestive heart failure made admitted to monitored bed for further management Objective Data Objective Data Vital Signs: Vital Signs Temp Pulse Resp BP Pulse Ox O2 Del Method O2 Flow Rate 97.0 F L 88 16 127/74 H 93 Nasal Cannula 2 09/01/24 09:00 09/01/24 09:00 09/01/24 09:00 09/01/24 09:00 09/01/24 09:00 09/01/24 10:00 09/01/24 10:00 Oxygen Flow Rate (L/min) 2 Oxygen Delivery Method Nasal Cannula Weight: 132.1 kg Body Mass Index (BMI) 47.0 Intake & Output: Intake and Output for Last 24 Hours 08/30/24 08/31/24 09/01/24 23:59 23:59 23:59 Intake Total 0 / 0 Output Total 400 / 400 Balance 0 / -200 -400 / -400 Lab / Micro Data 09/01/24 03:50 09/01/24 03:50 Labs: Laboratory Results - last 24 hr 08/31/24 13:25: WBC 8.6, RBC 4.24, Hgb 13.3, Hct 45.0, MCV 106.1 H, MCH 31.4, M CHC 29.6 L, RDW Std Deviation 58.0 H, RDW Coeff of Pattie 15.1 H, Plt Count 156, MPV 10.5, Immature Gran % (Auto) 0.700, Neut % (Auto) 75.4 H, Lymph % (Auto) 15.3 L, [place] % (Auto) 7.2, Eos % (Auto) 0.8, Baso % (Auto) 0.6, Absolute Neuts (auto) 6.5, Absolute Lymphs (auto) 1.32, Nucleated RBC % 0.3, Sodium 137, Potassium 4.8, Chloride 99, Carbon Dioxide 32.0, Anion Gap 6, BUN 18, Creatinine 0.96, Estim Creat Clear Calc 63.35, Est GFR (MDRD) Af Amer 71, Est GFR (MDRD) Non-Af 59 L, BUN/Creatinine Ratio 18.7, Glucose 242 H, Calcium 8.8, Total Bilirubin 1.20 H, AST 23, ALT 20, Alkaline Phosphatase 113, B-Natriuretic Peptide 198.4 H, Total Protein 6.6, Albumin 3.2, Globulin 3.4, Albumin/Globulin Ratio 0.9 08/31/24 15:20: Urine Color Straw, Urine Clarity Clear, Urine pH 6.0, Ur Specific [place] 1.020, Urine Protein 30 H, Urine Glucose (UA) 50 H, Urine Ketones Negative, Urine Occult Blood Negative, Urine Nitrite Negative, Urine Bilirubin 1 H, Urine Urobilinogen 4 H, Ur Leukocyte Esterase Negative, Urine RBC 0 SEEN, Urine WBC 0 SEEN, Ur Squamous Epith Cells 0-5 SEEN, Urine Bacteria RARE, Urine Mucus RARE 08/31/24 22:05: POC Glucose 221 H 09/01/24 03:50: WBC 7.7, RBC 3.77 L, Hgb 12.0, Hct 40.6, MCV 107.7 H, MCH 31.8, MCHC 29.6 L, RDW Std Deviation 60.2 H, RDW Coeff of Pattie 15.3 H, Plt Count 152, MPV 10.7, Immature Gran % (Auto) 1.800 H, Neut % (Auto) 69.8, Lymph % (Auto) 17.4 L, [place] % (Auto) 9.3, Eos % (Auto) 1.2, Baso % (Auto) 0.5, Absolute Neuts (auto) 5.4, Absolute Lymphs (auto) 1.34, Nucleated RBC % 0.3, Sodium 138, Potassium 4.5, Chloride 99, Carbon Dioxide 35.0 H, Anion Gap 4 L, BUN 21 H, C reatinine 1.10 H, Estim Creat Clear Calc 54.09, Est GFR (MDRD) Af Amer 61, Est GFR (MDRD) Non-Af 50 L, BUN/Creatinine Ratio 19.1, Glucose 238 H, Calcium 8.9, T SH 18.900 H 09/01/24 06:43: POC Glucose 165 H Micro: Microbiology 08/31/24 23:25 Mucosa - Nasopharyngeal Respiratory Panel (PCR) - Final 08/31/24 23:25 Mucosa - Nasopharyngeal Coronavirus COVID-19 PCR - Final ABG Data ABG results: ABG 12/03/24 17:19 Specimen Type ART Sample Site R Radial pH 7.29 L Bicarbonate Actual 34.9 H Total CO2 37 Base Excess 8 H O2 Saturation 90 L ABG pCO2 72.1 H* ABG pO2 67 L González Test Positive O2 Delivery Device Cannula Vent Mode Not entered Crit Call To/Read Back Yes Blood Gas Notified Whom khushi antonio Blood Gas Notified Time 17:22:12 Radiography Diagnostic Testing: Radiology Impression Abdomen/Pelvis CT 08/31/24 13:03 IMPRESSION: 1. Mildly shrunken cirrhotic liver with coarsening of the parenchyma. No visualized mass or ductal dilatation. 2. Redemonstration of diffuse body wall edema/anasarca 3. No free air or abscess or portal venous gas or pneumatosis 4. No bowel dilatation or obstruction 5. Mild sigmoid diverticulosis 6. Small to moderate-sized bilateral pleural effusions 7. No demonstrated acute fracture or compression deformity. Electronically Signed: Nakul Pérez MD at 14:22 EST Reading Location ID and State: [facility] / [place] , Service support , Brain CT 08/31/24 13:03 IMPRESSION: 1. Chronic involutional changes of the brain. Electronically Signed: Nakul Pérez MD at 14:27 EST Reading Location ID and State: [facility] / [place] , Service support , Lumbar Spine CT 08/31/24 13:03 IMPRESSION: 1. Multilevel degenerative changes, as described above. Electronically Signed: Nakul Pérez MD at 14:41 EST , Chest X-Ray 08/31/24 16:40 IMPRESSION: Diminished inspiratory effort and bibasilar atelectasis or infiltrates. Probable small left pleural effusion Electronically Signed: Jose Brooks MD at 16:57 EST Reading Location ID and State: [facility] / [place] Tel , Service support , Rhythm Strip Rhythm Strip: A-fib Rate: 109 Ectopy: None Physical Exam Narrative GENERAL: cooperative but dyspneic at rest HEENT: Atraumatic; normocephalic EYES; Anicteric, Normal Conjunctiva NECK; supple, normal thyroid, RESPIRATORY: Diminished to auscultation CARDIOVASCULAR: Regular S1 S2, GI: soft, normoactive bowel sounds, : No Renal angle tenderness; EXTREMITIES: Bipedal edema, no clubbing, MUSCULOSKELETAL: no muscle wasting NEURO: Awake; no lateralizing signs. SKIN: No Rash PSYCH; Flat affect Assessment & Plan Assessment/Plan (1) Acute on chronic diastolic heart failure with preserved ejection fraction: PLAN: Plan Patient is an 83-year-old lady with multiple comorbidities admitted with progressive shortness of breath and altered mental status. An assessment of acute hypoxia secondary to congestive heart failure made admitted to monitored bed for further management 1. Acute metabolic encephalopathy ? Secondary to hypoxia as well as suspected hypercapnia admitted to a monitored bed with treatment of the underlying clinical condition 2. Acute on chronic hypoxia ? Multifactorial including acute congestive heart failure and obesity hypoventilation syndrome patient placed on supplemental oxygen titrated to keep saturation greater than 90 3. Acute on Congestive heart failure with preserved ejection fraction -Echo from 04/16/2023 demonstrated EF of 55%. Chest x-ray on admission demonstrated bilateral pleural effusion. Admitted to monitored bed managed with strict input and output, low-sodium diet, daily weight, as well as diuretic therapy 4. Diabetes mellitus type II -patient's oral hypoglycemics held. Placed on long acting insulin, Accu-Cheks a.c. and at bedtime and covered with sliding scale insulin 5. Hypothyroidism -patient is on levothyroxine TSH was markedly elevated patient levothyroxine dose adjusted plan is for patient to follow-up with primary care physician for repeat TSH levels and subsequent dose adjustment if warranted 6. Chronic bilateral lower extremity lymphedema - did encourage the use of bilateral HENRIETTA hoses 7. Dyslipidemia ? Per history 8. Chronic A-fib ? Rate controlled on systemic anticoagulation with apixaban 9. Class II obesity with BMI of 47 ? Complicating care weight loss advised 10. Obesity hypoventilation syndrome ? Complicating 11. DVT prophylaxis ? Patient already anticoagulated with apixaban Time spent in the patient's overall evaluation,decision-making process, review of diagnostic data, adjustment of management, discussion with other providers, nursing nursing and ancillary staff involved in patient's care documentation, 52 minutes Charges/Coding Visit Charges Inpatient E&M: 94345 Subs Hosp L3
[2024-09-01 10:37] LABS: Hemoglobin A1c 8.9 % (3.8-5.6)
[2024-09-01] MEDS: Lidocaine 5% Patch 1 PATCH TOPICAL (12:14)
[2024-09-01 12:33] LABS: Bedside Glucose 233 mg/dL (74-106)
[2024-09-01 17:15] LABS: Bedside Glucose 214 mg/dL (74-106)
[2024-09-01] MEDS: oxyCODONE 5 MG Tablet 2.5 MG PO (17:52)
[2024-09-01 23:54] LABS: Bedside Glucose 194 mg/dL (74-106)
[2024-09-02] VITALS (7 sets, daily range): BP systolic 99–116; BP diastolic 60–66; PULSE 75–97; RESP 14–18; TEMP 36.4–36.8; O2SAT 91–96; BMI 47.0
--- NOTE | 2024-09-02 00:46 | CPS ---
Attempted PAP therapy for night time use, patient didn't tolerate.
[2024-09-02 06:07] LABS: Absolute Lymphocyte Count 1.26 X10^3/uL (0.83-4.51); Absolute Neutrophil Count 4.7 X10^3/uL (2.0-7.7); Basophil# 0.04 X10^3/uL; Basophil% 0.6 % (0-1); Eosinophils% 1.5 % (0-5); Hematocrit 40.1 % (37-47); Hemoglobin 11.8 g/dL (12.0-15.0); Lymphocyte # 1.26 X10^3/ul (0.83-4.51); Lymphocyte % 18.4 % (19-41); Mean Corp Hgb Conc 29.4 g/dL (32-36); Mean Corpuscular Hgb 31.5 pg (27.0-32.0); Mean Corpuscular Volume 106.9 fL (81-99); Mean Platelet Vol. 10.3 fl (6.2-12.0); Monocyte# 0.73 X10^3/uL; Monocyte% 10.6 % (0-10); NRBC Flagged by Analyzer 0.3 % (0-5); Neutrophil # 4.69 X10^3/uL (2.7-7.7); Neutrophil % 68.3 % (47-70); Platelet Count 144 K/mm3 (150-450); RBC Distribution Width CV 15.5 % (11.6-14.6); Red Blood Count 3.75 M/mm3 (4.2-5.4); White Blood Count 6.9 K/mm3 (4.4-11.0)
[2024-09-02] MEDS: Levothyroxine 100 MCG Tablet 200 MCG PO (06:31)
[2024-09-02] MEDS: Acetaminophen 500 MG Tablet 1000 MG PO ×3 (06:31→22:02)
[2024-09-02] MEDS: Insulin Lispro 100 UNIT/ML INSULN.PEN SC ×3 (06:32→22:02)
[2024-09-02 06:44] LABS: Anion Gap 3 (5-15); BUN 33 mg/dL (7-18); BUN/Creat Ratio 23.7 RATIO (10-20); Calcium,Total 9.2 mg/dL (8.5-10.1); Chloride 99 mmol/L (98-107); Creatinine, Serum 1.39 mg/dL (0.55-1.02); EST Glomerular Filtration Rate 38 mL/min (>60); Est Glom Filt Rate - Afr Amer 47 mL/min (>60); Estimated Creatinine Clearance 42.79 ml/min; Glucose 175 mg/dL (74-106); Magnesium 1.9 mg/dL (1.6-2.6); Phosphorus 4.9 mg/dL (2.5-4.9); Potassium 4.7 mmol/L (3.5-5.1); Sodium Level 138 mmol/L (136-145)
[2024-09-02 06:52] LABS: Bedside Glucose 165 mg/dL (74-106)
[2024-09-02] MEDS: APIXABAN 5 MG TABLET PO ×2 (08:47→22:02)
[2024-09-02] MEDS: Furosemide 40 MG/4 ML Vial IV (08:47)
[2024-09-02] MEDS: dilTIAZem CD 240 MG Capsule PO (08:47)
[2024-09-02] MEDS: Lidocaine 5% Patch 1 PATCH TOPICAL (08:48)
[2024-09-02] MEDS: Senna/Docusate Sodium 1 Tablet 2 TABLET PO (08:50)
[2024-09-02] MEDS: 0.9% Saline Lock 10 ML Syringe IV (08:51)
--- NOTE | 2024-09-02 08:51 | PCM.PN.HOSP ---
Reason for Visit Reason for Visit: Diagnoses Acute on chronic diastolic (congestive) heart failure (08/31/24) Subjective Subjective Patient seen and looks tired. Remains on supplemental oxygen Objective Data Objective Data Vital Signs: Vital Signs Temp Pulse Resp BP Pulse Ox O2 Del Method O2 Flow Rate 97.5 F L 80 18 116/63 92 Nasal Cannula 5 09/02/24 08:44 09/02/24 08:44 09/02/24 08:44 09/02/24 08:44 09/02/24 08:44 09/02/24 08:44 09/02/24 08:44 Oxygen Flow Rate (L/min) 5 Oxygen Delivery Method Nasal Cannula Weight: 132 kg Body Mass Index (BMI) 47.0 Intake & Output: Intake and Output for Last 24 Hours 08/31/24 09/01/24 09/02/24 23:59 23:59 23:59 Intake Total 0 / 0 360 / 360 Output Total 800 / 1100 500 / 500 Balance 0 / -200 -440 / -740 -500 / -500 Lab / Micro Data 09/02/24 05:36 09/02/24 05:36 Labs: Laboratory Results - last 24 hr 09/01/24 03:50: Hemoglobin A1c 8.9 H 09/01/24 12:10: POC Glucose 233 H 09/01/24 16:40: POC Glucose 214 H 09/01/24 23:23: POC Glucose 194 H 09/02/24 05:36: WBC 6.9, RBC 3.75 L, Hgb 11.8 L, Hct 40.1, MCV 106.9 H, MCH 31.5, MCHC 29.4 L, RDW Std Deviation 60.0 H, RDW Coeff of Pattie 15.5 H, Plt Count 144 L, MPV 10.3, Immature Gran % (Auto) 0.600, Neut % (Auto) 68.3, Lymph % (Auto) 18.4 L, [place] % (Auto) 10.6 H, Eos % (Auto) 1.5, Baso % (Auto) 0.6, Absolute Neuts (auto) 4.7, Absolute Lymphs (auto) 1.26, Nucleated RBC % 0.3, Sodium 138, Potassium 4.7, Chloride 99, Carbon Dioxide 35.0 H, Anion Gap 3 L, BUN 33 H, Creatinine 1.39 H, Estim Creat Clear Calc 42.79, Est GFR (MDRD) Af Amer 47 L, Est GFR (MDRD) Non-Af 38 L, BUN/Creatinine Ratio 23.7 H, Glucose 175 H, Calcium 9.2, Phosphorus 4.9, Magnesium 1.9 09/02/24 06:29: POC Glucose 165 H Micro: Microbiology 08/31/24 23:25 Mucosa - Nasopharyngeal Respiratory Panel (PCR) - Final 08/31/24 23:25 Mucosa - Nasopharyngeal Coronavirus COVID-19 PCR - Final Radiography Diagnostic Testing: Radiology Impression Echocardiogram 08/31/24 20:17 Interpretation Summary The estimated ejection fraction is 60 %. Unable to assess diastolic dysfunction. Trivial mitral valve insufficiency. Mild to moderate aortic stenosis. There is severe biatrial dilatation. Ordering Physician: Jordana Queen Referring Physician: REJI DERAS Performed By: Fabi Vera RDCS Rhythm Strip Rhythm Strip: A-fib Rate: 109 Ectopy: None Physical Exam Narrative GENERAL: cooperative but dyspneic at rest HEENT: Atraumatic; normocephalic EYES; Anicteric, Normal Conjunctiva NECK; supple, normal thyroid, RESPIRATORY: Diminished to auscultation CARDIOVASCULAR: Regular S1 S2, GI: soft, normoactive bowel sounds, : No Renal angle tenderness; EXTREMITIES: Bipedal edema, no clubbing, MUSCULOSKELETAL: no muscle wasting NEURO: Awake; no lateralizing signs. SKIN: No Rash PSYCH; Flat affect Assessment & Plan Assessment/Plan (1) Acute on chronic diastolic heart failure with preserved ejection fraction: PLAN: Plan Patient is an 83-year-old lady with multiple comorbidities admitted with progressive shortness of breath and altered mental status. An assessment of acute hypoxia secondary to congestive heart failure made admitted to monitored bed for further management 1. Acute metabolic encephalopathy ? Secondary to hypoxia as well as suspected hypercapnia admitted to a monitored bed with treatment of the underlying clinical condition ? 09/02/2024; patient back to baseline 2. Acute on chronic hypoxia ? Multifactorial including acute congestive heart failure and obesity hypoventilation syndrome patient placed on supplemental oxygen titrated to keep saturation greater than 90 ? 09/02/2024; patient remains on supplemental oxygen 3. Acute on Congestive heart failure with preserved ejection fraction -Echo from 04/16/2023 demonstrated EF of 55%. Chest x-ray on admission demonstrated bilateral pleural effusion. Admitted to monitored bed managed with strict input and output, low-sodium diet, daily weight, as well as diuretic therapy 4. Diabetes mellitus type II -patient's oral hypoglycemics held. Placed on long acting insulin, Accu-Cheks a.c. and at bedtime and covered with sliding scale insulin 5. Hypothyroidism -patient is on levothyroxine TSH was markedly elevated patient levothyroxine dose adjusted plan is for patient to follow-up with primary care physician for repeat TSH levels and subsequent dose adjustment if warranted 6. Chronic bilateral lower extremity lymphedema - did encourage the use of bilateral HENRIETTA hoses 7. Dyslipidemia ? Per history 8. Chronic A-fib ? Rate controlled on systemic anticoagulation with apixaban 9. Class II obesity with BMI of 47 ? Complicating care weight loss advised 10. Obesity hypoventilation syndrome ? Complicating 11. DVT prophylaxis ? Patient already anticoagulated with apixaban 12. Physical deconditioning ? Requested for PT OT eval and social sciences instructor to assist with discharge planning Time spent in the patient's overall evaluation,decision-making process, review of diagnostic data, adjustment of management, discussion with other providers, nursing nursing and ancillary staff involved in patient's care documentation 40 minutes Charges/Coding Visit Charges Inpatient E&M: 41431 Subs Hosp L2
[2024-09-02 11:34] LABS: Bedside Glucose 148 mg/dL (74-106)
--- NOTE | 2024-09-02 15:00 | CASEMGMT ---
DANO WHITE chart review: patient was admitted 07/13-07/16/24 for covid with hypoxia and again 08/07-08/09 for acute cystitis. See assessment from 07/14/24. Patient was discharged to home with support from and [employer] home oxygen at 2lpm, patient had declined HHC at discharge. Patient returned to [facility] ED for back pain. Patient was also hypoxic and having intermittent confusion. Patient was admitted for Acute exacerbation of CHF and AMS. DANO WHITE in to discuss readmission and discharge planning. Patient states she attended PCP appt on 08/16 and was taking medications as prescribed. Patient states she tries to follow low sodium diet. Patient states she has been having increased back pain and wishes the hospitalist would focus on that instead of her CHF, DANO WHITE advised patient hospiatlist would be notified of her concern. DANO WHITE reviewed progress with therapy, min assist x1 for 3 feet. Patient states she is going home and at bedside will take care of patient. DANO WHITE inquired if feels he can physically assist patient, states that it is difficult for him to physically help patient stand at times. Patient upset and states she does not want to go to SNF or HHC at discharge and just wants to go home. DANO WHITE encouraged patient and to discuss current needs and anticipated needs at discharge. DANO WHITE explained HHC vs SNF and [facility] coverage. DANO WHITE updated patient that CM would follow-up tomorrow after working with therapy again. Patient and had no further questions or concerns. CM will continue to follow this patient and plan for a safe discharge.
--- NOTE | 2024-09-02 15:23 | CHAPLAIN ---
Type of Pastoral Visit _x__ Initial Visit ___ Follow-up Visit ___ On-call Visit ___ General Patient Visit ___ Spiritual Assessment ___ Family Conference ___ Bereavement ___ Rapid Response ___ Code Blue ___ Other (describe below) Pastoral Care Referral From _x__ Patient ___ Family ___ Nurse ___ Physician ___ Coding Analyst ___ Associate Account Executive ___ Other (describe below) Sacrament/Intervention _x__ Active listening ___ Anointing ___ Voodoo ___ Bereavement ___ Communion ___ Lety exploration ___ ___ Life review _x__ Prayer ___ Reconciliation ___ Sacrament of Sick _x__ Supportive presence ___ Wedding ___ Other (describe below) Pastoral Comments patient is sitting up in chair but admits to back pain; spouse is with her; pt states that she is doing better now; pt says that she has no needs at this time; pt denies any concerns or worries; pt welcomes a prayer for support
[2024-09-02 16:37] LABS: Bedside Glucose 261 mg/dL (74-106)
[2024-09-02 17:01] LABS: Allen Test Positive; Base Excess 5 mmol/L (-2 to +2); Bicarbonate 31.3 mmol/L (22-26); Blood Gas Specimen Type ART; Mode Not entered; O2 Delivery Device Cannula; PO2 71 mmHG (75-100); SITE L Radial; SO2 92 % (95-99); Total Carbon Dioxide 33 mmol/L; pH 7.32 (7.35-7.45)
[2024-09-02] MEDS: MELATONIN 3 MG TABLET PO (22:03)
[2024-09-02 22:32] LABS: Bedside Glucose 249 mg/dL (74-106)
[2024-09-03] VITALS (7 sets, daily range): BP systolic 97–124; BP diastolic 62–73; PULSE 74–94; RESP 16–20; TEMP 36.6–37; O2SAT 94–98; BMI 47.5
[2024-09-03 05:04] LABS: Absolute Lymphocyte Count 1.02 X10^3/uL (0.83-4.51); Absolute Neutrophil Count 4.9 X10^3/uL (2.0-7.7); Basophil# 0.03 X10^3/uL; Basophil% 0.5 % (0-1); Eosinophil# 0.11 X10^3/uL; Eosinophils% 1.7 % (0-5); Hematocrit 38.5 % (37-47); Hemoglobin 11.6 g/dL (12.0-15.0); Lymphocyte # 1.02 X10^3/ul (0.83-4.51); Lymphocyte % 15.3 % (19-41); Mean Corp Hgb Conc 30.1 g/dL (32-36); Mean Corpuscular Hgb 31.8 pg (27.0-32.0); Mean Corpuscular Volume 105.5 fL (81-99); Mean Platelet Vol. 10.3 fl (6.2-12.0); Monocyte# 0.58 X10^3/uL; Monocyte% 8.7 % (0-10); NRBC Flagged by Analyzer 0.3 % (0-5); Neutrophil # 4.88 X10^3/uL (2.7-7.7); Neutrophil % 73.3 % (47-70); Platelet Count 141 K/mm3 (150-450); Red Blood Count 3.65 M/mm3 (4.2-5.4); White Blood Count 6.7 K/mm3 (4.4-11.0)
--- NOTE | 2024-09-03 05:12 | CPS ---
pt refused bipap use
[2024-09-03 05:37] LABS: Anion Gap 4 (5-15); BUN 38 mg/dL (7-18); BUN/Creat Ratio 28.4 RATIO (10-20); Calcium,Total 9.2 mg/dL (8.5-10.1); Chloride 99 mmol/L (98-107); Creatinine, Serum 1.34 mg/dL (0.55-1.02); EST Glomerular Filtration Rate 40 mL/min (>60); Est Glom Filt Rate - Afr Amer 49 mL/min (>60); Estimated Creatinine Clearance 44.66 ml/min; Glucose 156 mg/dL (74-106); Potassium 4.8 mmol/L (3.5-5.1); Sodium Level 135 mmol/L (136-145)
[2024-09-03] MEDS: Levothyroxine 100 MCG Tablet 200 MCG PO (06:49)
[2024-09-03] MEDS: Insulin Lispro 100 UNIT/ML INSULN.PEN SC ×4 (06:49→21:37)
[2024-09-03] MEDS: Acetaminophen 500 MG Tablet 1000 MG PO ×3 (06:49→21:37)
[2024-09-03 07:11] LABS: Bedside Glucose 177 mg/dL (74-106)
--- NOTE | 2024-09-03 07:39 | PN.HOSP_ITS ---
Reason for Visit Reason for Visit: Diagnoses Acute on chronic diastolic (congestive) heart failure (08/31/24) Subjective Subjective Patient seen continues to improve clinically. She however remains deconditioned. Did discuss possibility of being discharged to a prison facility patient is not interested her preference would be to go home with home health Objective Data Objective Data Vital Signs: Vital Signs Temp Pulse Resp BP Pulse Ox O2 Del Method O2 Flow Rate 98.1 F 74 16 97/65 98 Nasal Cannula 3 09/03/24 03:34 09/03/24 03:34 09/03/24 03:34 09/03/24 03:34 09/03/24 03:34 09/03/24 03:34 09/03/24 03:34 Oxygen Flow Rate (L/min) 3 Oxygen Delivery Method Nasal Cannula Weight: 133.4 kg Body Mass Index (BMI) 47.5 Intake & Output: Intake and Output for Last 24 Hours 09/01/24 09/02/24 09/03/24 23:59 23:59 23:59 Intake Total 360 / 360 500 / 500 Output Total 800 / 1100 1100 / 1100 Balance -440 / -740 -600 / -600 Lab / Micro Data 09/03/24 04:41 09/03/24 04:41 Labs: Laboratory Results - last 24 hr 09/02/24 11:16: POC Glucose 148 H 09/02/24 16:17: POC Glucose 261 H 09/02/24 21:59: POC Glucose 249 H 09/03/24 04:41: WBC 6.7, RBC 3.65 L, Hgb 11.6 L, Hct 38.5, MCV 105.5 H, MCH 31.8, MCHC 30.1 L, RDW Std Deviation 57.0 H, RDW Coeff of Pattie 15.0 H, Plt Count 141 L, MPV 10.3, Immature Gran % (Auto) 0.500, Neut % (Auto) 73.3 H, Lymph % (Auto) 15.3 L, [place] % (Auto) 8.7, Eos % (Auto) 1.7, Baso % (Auto) 0.5, Absolute Neuts (auto) 4.9, Absolute Lymphs (auto) 1.02, Nucleated RBC % 0.3, Sodium 135 L , Potassium 4.8, Chloride 99, Carbon Dioxide 33.0 H, Anion Gap 4 L, BUN 38 H, C reatinine 1.34 H, Estim Creat Clear Calc 44.66, Est GFR (MDRD) Af Amer 49 L, Est GFR (MDRD) Non-Af 40 L, BUN/Creatinine Ratio 28.4 H, Glucose 156 H, Calcium 9.2 09/03/24 06:48: POC Glucose 177 H Micro: Microbiology 08/31/24 23:25 Mucosa - Nasopharyngeal Respiratory Panel (PCR) - Final 08/31/24 23:25 Mucosa - Nasopharyngeal Coronavirus COVID-19 PCR - Final ABG Data ABG results: ABG 09/02/24 16:58 Specimen Type ART Sample Site L Radial pH 7.32 L Bicarbonate Actual 31.3 H Total CO2 33 Base Excess 5 H O2 Saturation 92 L O2 % 5.0 ABG pCO2 61.0 H ABG pO2 71 L González Test Positive O2 Delivery Device Cannula Vent Mode Not entered Rhythm Strip Rhythm Strip: A-fib Rate: 109 Ectopy: None Physical Exam Narrative GENERAL: cooperative but dyspneic at rest HEENT: Atraumatic; normocephalic EYES; Anicteric, Normal Conjunctiva NECK; supple, normal thyroid, RESPIRATORY: Diminished to auscultation CARDIOVASCULAR: Regular S1 S2, GI: soft, normoactive bowel sounds, : No Renal angle tenderness; EXTREMITIES: Bipedal edema, no clubbing, MUSCULOSKELETAL: no muscle wasting NEURO: Awake; no lateralizing signs. SKIN: No Rash PSYCH; Flat affect Assessment & Plan Assessment/Plan (1) Acute on chronic diastolic heart failure with preserved ejection fraction: PLAN: Plan Patient is an 83-year-old lady with multiple comorbidities admitted with progressive shortness of breath and altered mental status. An assessment of acute hypoxia secondary to congestive heart failure made admitted to monitored bed for further management 1. Acute metabolic encephalopathy ? Secondary to hypoxia as well as suspected hypercapnia admitted to a monitored bed with treatment of the underlying clinical condition ? 09/02/2024; patient back to baseline 2. Acute on chronic hypoxia ? Multifactorial including acute congestive heart failure and obesity hypoventilation syndrome patient placed on supplemental oxygen titrated to keep saturation greater than 90 ? 09/02/2024; patient remains on supplemental oxygen ? 09/03/2024; patient back to her baseline home oxygen 3. Acute on Congestive heart failure with preserved ejection fraction -Echo from 04/16/2023 demonstrated EF of 55%. Chest x-ray on admission demonstrated bilateral pleural effusion. Admitted to monitored bed managed with strict input and output, low-sodium diet, daily weight, as well as diuretic therapy ? 09/03/2024 patient is in negative fluid balance 4. Diabetes mellitus type II -patient's oral hypoglycemics held. Placed on long acting insulin, Accu-Cheks a.c. and at bedtime and covered with sliding scale insulin 5. Hypothyroidism -patient is on levothyroxine TSH was markedly elevated patient levothyroxine dose adjusted plan is for patient to follow-up with primary care physician for repeat TSH levels and subsequent dose adjustment if warranted 6. Chronic bilateral lower extremity lymphedema - did encourage the use of bilateral HENRIETTA hoses 7. Dyslipidemia ? Per history 8. Chronic A-fib ? Rate controlled on systemic anticoagulation with apixaban 9. Class II obesity with BMI of 47 ? Complicating care weight loss advised 10. Obesity hypoventilation syndrome ? Complicating 11. DVT prophylaxis ? Patient already anticoagulated with apixaban 12. Physical deconditioning ? Requested for PT OT eval and social media project manager to assist with discharge planning ? 09/03/2024; recommendations for patient to be discharged to prison facility however she is currently declining her preference would be to go home with home health Time spent in the patient's overall evaluation,decision-making process, review of diagnostic data, adjustment of management, discussion with other providers, nursing nursing and ancillary staff involved in patient's care documentation 38 minutes Charges/Coding Visit Charges Inpatient E&M: 91365 Subs Hosp L2
[2024-09-03] MEDS: Furosemide 40 MG/4 ML Vial IV (08:34)
[2024-09-03] MEDS: Lidocaine 5% Patch 1 PATCH TOPICAL (08:34)
[2024-09-03] MEDS: APIXABAN 5 MG TABLET PO ×2 (08:34→21:37)
[2024-09-03] MEDS: 0.9% Saline Lock 10 ML Syringe IV (08:35)
[2024-09-03] MEDS: dilTIAZem CD 240 MG Capsule PO (08:35)
[2024-09-03 11:45] LABS: Bedside Glucose 229 mg/dL (74-106)
--- NOTE | 2024-09-03 13:57 | CASEMGMT ---
Addendum entered by Nadeen Garduno 09/03/24 16:47: Patient was accepted by [facility] for start of care Friday or Friday, RN CINDY called and updated daughter. Green sheet placed on chart, discharge plan updated. Addendum entered by Nadeen Garduno 09/03/24 15:01: DANO WHITE updated by therapy that patient was able to transfer and ambulate contact guard and would be appropriate for home with HHC. RN CM in to patient's room and discussed HHC. Patient states she would like RN CM to call daughter for preferences. RN CM called daughter Shalonda, updated regarding progress with therapy and recommendation for HHC. Daughter agreeable to plan, HHC list reviewed and prefers HHC. SNF list also provided if needed in the future and placed in discharge folder. Daughter and patient had no further questions or concerns. RN CM called and placed referral to [facility], awaiting acceptance. Original Note: RN CM receive message that daughter wanted to speak with CM. RN CM called daughterShalonda. Shalonda voiced concerns with patient returning home and states that her and the patient's are unable to physically assist patient. Shalonda also states she feels that the patient may have early dementia. RN CM encourage daughter to attend follow-up appt with PCP to discuss forgetfulness. Daughter states that family is able to come in the morning to discuss their concerns and discharge planning with patient. Daughter states that she would like patient to discharge to SNF for additional rehab prior to returning home. RN CM updated daughter that patient is alert and oriented and is still able to make her own decisions. RN CM updated Shalonda that this RN CM would follow-up with patient and discuss family concerns for patient discharging home. Daughter Shalonda had no further questions or concerns. RN CM reviewed progress with therapy and patient required assistance x2 for transfers and ambulation. RN CM in to discuss family concerns and progress with therapy. Patient again is adamant that she wants to go home at discharge and states she will do better at home with transfers and ambulation. Patient states she would be okay with HHC coming to her home at discharge. Therapy entering room at this time, RN CM encouraged patient to work with therapy and simulate what she would need to do at home to be safe. Patient willing to work with therapy and consider their recommendations for at discharge.
--- NOTE | 2024-09-03 14:01 | CASEMGMT ---
Discharge Planning A list of?SNF & HH?providers including quality and resource use data and consistent with the patient's preferred geographic region, medical needs, and insurance network was created in [facility] Guide.? This list was provided to the RN CM. Monie Moreira, Discharge Planning Asst.
[2024-09-03 16:32] LABS: Bedside Glucose 222 mg/dL (74-106)
[2024-09-04 02:59] LABS: Bedside Glucose 266 mg/dL (74-106)
[2024-09-04 04:58] VITALS: BMI 47.4
[2024-09-04] MEDS: Acetaminophen 500 MG Tablet 1000 MG PO ×2 (06:20→12:38)
[2024-09-04] MEDS: Insulin Lispro 100 UNIT/ML INSULN.PEN SC ×3 (06:20→17:01)
[2024-09-04] MEDS: Levothyroxine 100 MCG Tablet 200 MCG PO (06:21)
[2024-09-04 06:26] VITALS: BP 117/75; PULSE 85; RESP 18; TEMP 36.6; O2SAT 94
[2024-09-04 06:48] LABS: Bedside Glucose 151 mg/dL (74-106)
[2024-09-04 06:53] LABS: Absolute Lymphocyte Count 1.07 X10^3/uL (0.83-4.51); Absolute Neutrophil Count 3.2 X10^3/uL (2.0-7.7); Basophil# 0.03 X10^3/uL; Basophil% 0.6 % (0-1); Eosinophil# 0.12 X10^3/uL; Eosinophils% 2.4 % (0-5); Hematocrit 39.8 % (37-47); Hemoglobin 11.8 g/dL (12.0-15.0); Lymphocyte # 1.07 X10^3/ul (0.83-4.51); Lymphocyte % 21.3 % (19-41); Mean Corp Hgb Conc 29.6 g/dL (32-36); Mean Corpuscular Hgb 31.5 pg (27.0-32.0); Mean Corpuscular Volume 106.1 fL (81-99); Mean Platelet Vol. 10.1 fl (6.2-12.0); Monocyte# 0.54 X10^3/uL; Monocyte% 10.8 % (0-10); NRBC Flagged by Analyzer 0 % (0-5); Neutrophil # 3.23 X10^3/uL (2.7-7.7); Neutrophil % 64.3 % (47-70); POSITIVE COUNT YES; RBC Distribution Width CV 15.2 % (11.6-14.6); RBC Distribution Width SD 58.8 fl (35.1-43.9); Red Blood Count 3.75 M/mm3 (4.2-5.4)
[2024-09-04 06:57] LABS: Anion Gap 2 (5-15); BUN 35 mg/dL (7-18); BUN/Creat Ratio 32.1 RATIO (10-20); Calcium,Total 9.2 mg/dL (8.5-10.1); Chloride 101 mmol/L (98-107); Creatinine, Serum 1.09 mg/dL (0.55-1.02); EST Glomerular Filtration Rate 51 mL/min (>60); Est Glom Filt Rate - Afr Amer 62 mL/min (>60); Estimated Creatinine Clearance 54.86 ml/min; Glucose 157 mg/dL (74-106); Potassium 4.8 mmol/L (3.5-5.1); Sodium Level 137 mmol/L (136-145)
[2024-09-04 07:12] LABS: Differential Indicated SCAN CRITERIA MET
[2024-09-04 08:07] LABS: Differential Comment SCANNED; Platelet Count 122 K/mm3 (150-450); Platelet Estimate SLT DEC (ADEQ); Red Cell Morphology NORM C+C NORMAL (NORM C&C)
[2024-09-04] MEDS: Lidocaine 5% Patch 1 PATCH TOPICAL (09:00)
[2024-09-04] MEDS: dilTIAZem CD 240 MG Capsule PO (09:01)
[2024-09-04] MEDS: APIXABAN 5 MG TABLET PO (09:01)
[2024-09-04] MEDS: Furosemide 40 MG Tablet PO (09:07)
[2024-09-04] MEDS: Nystatin Powder 15gm Bottle 1 APPLIC TOPICAL (09:07)
--- NOTE | 2024-09-04 10:35 | CASEMGMT ---
Social Work Family reached out to Tiffany, cable television access coordinator in TCU asking about bed availability, as they do not think pt can return home at this time. Tiffany states they would have a bed for pt should SNF be needed. SW met w/pt and in room in regard to discharge plan. SW explained family had reached out and were concerned about her going home, let her know that there is a bed in TCU for pt. Pt initially stated she wanted to return home, did not want to go to TCU for rehab. Pt's granddaughter Tana then came to visit. SW spoke w/pt, and family about options. SNF list not needed at this time. Granddaughter Tana emphasized to pt the importance of going to TCU for rehab, otherwise she could fall again, hurt herself and could end up in a [facility]. After some discussion, pt is now agreeable to TCU. ANNALEE let Tiffany in TCU know, bed would be available this weekend if pt is medically ready. Green sheet placed on chart in event pt can go to TCU on the weekend. TIFFANIE Gallegos
[2024-09-04 11:00] VITALS: BP 116/67; PULSE 92; RESP 18; TEMP 36.4; O2SAT 96
--- NOTE | 2024-09-04 11:38 | PCM.TXEXTCAR ---
Diet Diet Order/Speech Therapy: 09/01/24 12:22 Diet: Cardiac: Calorie-Controlled Food consistency:: Regular Liquid Consistency:: Regular/Thin Dietary Modifications:: Sodium Restricted Consistent Carbohydrate Fluid restriction:: 1500 mL How many daily calories?: 1800 calorie Routine Orders/Code Status Code Status: DNRCC-A (DO NOT INTUBATE) DC O2, CPAP, BIPAP needs PSN CPAP & BiPAP: BiPAP & CPAP Settings per PSN Mode BiPAP 08/31/24 23:05 Bipap Delivery Device Face Mask 08/31/24 23:05 Home O2 Instructions: Wears 2 to 3 L nasal cannula at home, is at baseline level of oxygen on discharge. Additional Home O2 Discharge instructions: No Therapies Weight Bearing: Full weight bearing Physical Therapy: Eval and Treat Occupational Therapy: Eval and Treat Problem/Diagnosis (1) Acute on chronic diastolic heart failure with preserved ejection fraction: Status: Acute Code(s): I50.33 - Acute on chronic diastolic (congestive) heart failure Plan Patient is an 83-year-old female who presented [facility] ED on 08/31/2024 with worsening shortness of breath and confusion. Hospital course as noted below. Patient discharged to TCU in stable condition on 09/04. 1. Acute on chronic HFpEF ? Presented with hypoxia and volume overload. Chest x-ray showed small bilateral pleural effusions and mild pulmonary congestion. CT abdomen pelvis showed diffuse body wall edema/anasarca. BNP mildly elevated at 198. Echo 08/31 showed EF 60%, unable to assess diastolic dysfunction, severe biatrial dilatation. Treated with IV Lasix 40 mg daily while here with good urine output and improvement in oxygenation status. Transitioned back to home p.o. Lasix 40 mg daily and can continue this on discharge. Continue outpatient follow-up with [facility] as previously scheduled. 2. Acute on chronic hypoxic and hypercapnic respiratory failure, resolved ? Wears 2 to 3 L nasal cannula intermittently at baseline. Hypoxic to 77% on room air on arrival. ABG showed pH 7.29, pCO2 72, pO2 67 on nasal cannula. Suspect in part due to HFpEF exacerbation along with some degree of obesity hypoventilation syndrome and likely underlying OCTAVIO. Improved with BiPAP on admission. Weaned back to 2 to 3 L nasal cannula on discharge. 3. Acute metabolic encephalopathy, resolved ? Suspected secondary to hypercapnia on admission. Resolved. 4. Acute on chronic debility with falls ? PT/OT/case management followed. Lives at home with and other family occasionally helps out. Patient with debility at baseline given age, morbid obesity and chronic back pain and with acute illness is more debilitated, and has been noted that he would not be able to take care of her at home. Patient discharged to TCU in stable condition. 5. Chronic back pain ? Patient reported worsening back pain on admission. CT lumbar spine unremarkable. Treated with Tylenol as needed and lidocaine patch while inpatient. Can continue these as needed on discharge. 6. Hypothyroidism ? TSH 18 on admit. Patient reportedly compliant with home Synthroid. Increased Synthroid dose from 150 to 200 mcg daily. Repeat thyroid studies in 6 to 8 weeks in outpatient setting. Chronic medical conditions: ? Morbid obesity: BMI 47 on admit. Complicated hospital course, care and prognosis. ? Chronic A-fib: Stable. Continue home Eliquis and diltiazem. ? Type 2 diabetes mellitus: Treated with sliding scale insulin while inpatient. Okay to resume home metformin on discharge. ? Chronic bilateral lower extremity lymphedema: Treated with HENRIETTA hose while inpatient, can continue on discharge as needed. Total clinical time spent by myself addressing the patient's medical issues, reviewing all the data, and collaborating with patient's care team: 35 minutes. Allergies/Procedures Done in Hospital Allergies gabapentin Allergy (Unknown, Verified 08/31/24 12:10) Unknown meloxicam Adverse Reaction (Unknown, Verified 08/31/24 12:10) Unknown [id number] Reductase Inhibitor Adverse Reaction (Unknown, Verified 08/31/24 12:10) Unknown Procedures: EKG, Transthoracic Echo and - (Chest x-ray, CT L-spine, CT brain, CT abdomen pelvis) Type of Care/Length of Stay Estimated LOS: Convalescent Care Less Than 30 days Type of Care Needed: Skilled Rehab Potential: Fair Prognosis: Fair Additional Orders/Day of Discharge H&P will serve as current which was dated: 08/31/24 Day of Discharge: 09/04/24 Dietary and Speech Recommendations Dietitian Recommendations/Changes: Will adjust diet to 1800 calorie/consistent carbohydrate; cardiac/sodium-restricted with 1500mL/day FR. Defer ONS due to high blood glucose and morbid obesity/BMI 47. Offer ONS only if PO fails at meals and intake declines below 50% meals. Discharge Plan Admission Admit Date/Time: 08/31/24 17:47 Primary Reason for Your Visit: Shortness of breath, confusion Attending Provider: Beto Fish Primary Care Provider: Mihaela Ybarra Consulting Providers: Jordana Queen; Nico Pratt Instructions Additional Instructions / Restrictions: Start taking Synthroid at increased dose of 200 mcg daily and have repeat thyroid labs done with your primary care doctor in the next 6 to 8 weeks. Discharge Orders/Prescriptions Prescriptions: New levothyroxine 100 mcg Tablet 200 mcg PO DAILY@0600 Qty: 0 0RF Continued metformin 500 mg tablet extended release 24 hr 500 mg PO BREAKFAST apixaban 5 mg tablet 5 mg PO BID Qty: 60 11RF furosemide 40 mg tablet 40 mg PO DAILY ergocalciferol (vitamin D2) 1,250 mcg (50,000 unit) capsule 1,250 mcg PO BID diltiazem HCl 240 mg Capsule,Extended Release 24hr 240 mg PO DAILY Qty: 30 0RF Discontinued levothyroxine 150 tablet 150 mcg PO DAILY Referrals / Follow Up: Mihaela Ybarra MD [Primary Care Provider] - Disposition Disposition (needs filled in before D/C Order can be placed): Longterm Facility
--- NOTE | 2024-09-04 11:39 | DS.PCM_ITS ---
Providers Date of Admission: 08/31/24 Date of Discharge: 09/04/24 Primary Care Physician: Dr. Mihaela Ybarra MD Reason For Visit: AMS, AECHF Diagnosis Discharge Diagnosis (1) Acute on chronic diastolic heart failure with preserved ejection fraction: Status: Acute Code(s): I50.33 - Acute on chronic diastolic (congestive) heart failure Medications at Discharge Home Medications apixaban 5 mg tablet 5 mg PO BID BLOOD THINNER #60 tabs 11/11/23 metformin 500 mg tablet,extended release 24 hr 500 mg PO BREAKFAST DIABETES 11/11/23 furosemide 40 mg tablet 40 mg PO DAILY EDEMA 07/13/24 ergocalciferol (vitamin D2) 1,250 mcg (50,000 unit) capsule 1,250 mcg PO BID 08/07/24 diltiazem HCl 240 mg capsule,extended release 24 hr 240 mg PO DAILY #30 caps 08/09/24 levothyroxine 100 mcg tablet 200 mcg (2 x 100 mcg) PO DAILY@0600 #0 tabs 09/04/24 Hospital Course Operations None Procedures EKG, Transthoracic echo and - (Chest x-ray, CT lumbar spine, CT brain, CT abdomen pelvis) Summary of Care Provided Minutes Spent on Discharge: 35 Hospital Course: Patient is an 83-year-old female who presented [facility] ED on 08/31/2024 with worsening shortness of breath and confusion. Hospital course as noted below. Patient discharged to TCU in stable condition on 09/04. 1. Acute on chronic HFpEF ? Presented with hypoxia and volume overload. Chest x-ray showed small bilateral pleural effusions and mild pulmonary congestion. CT abdomen pelvis showed diffuse body wall edema/anasarca. BNP mildly elevated at 198. Echo 08/31 showed EF 60%, unable to assess diastolic dysfunction, severe biatrial dilatation. Treated with IV Lasix 40 mg daily while here with good urine output and improvement in oxygenation status. Transitioned back to home p.o. Lasix 40 mg daily and can continue this on discharge. Continue outpatient follow-up with [facility] as previously scheduled. 2. Acute on chronic hypoxic and hypercapnic respiratory failure, resolved ? Wears 2 to 3 L nasal cannula intermittently at baseline. Hypoxic to 77% on room air on arrival. ABG showed pH 7.29, pCO2 72, pO2 67 on nasal cannula. Suspect in part due to HFpEF exacerbation along with some degree of obesity hypoventilation syndrome and likely underlying OCTAVIO. Improved with BiPAP on admission. Weaned back to 2 to 3 L nasal cannula on discharge. 3. Acute metabolic encephalopathy, resolved ? Suspected secondary to hypercapnia on admission. Resolved. 4. Acute on chronic debility with falls ? PT/OT/case management followed. Lives at home with and other family occasionally helps out. Patient with debility at baseline given age, morbid obesity and chronic back pain and with acute illness is more debilitated, and has been noted that he would not be able to take care of her at home. Patient discharged to TCU in stable condition. 5. Chronic back pain ? Patient reported worsening back pain on admission. CT lumbar spine unremarkable. Treated with Tylenol as needed and lidocaine patch while inpatient. Can continue these as needed on discharge. 6. Hypothyroidism ? TSH 18 on admit. Patient reportedly compliant with home Synthroid. Increased Synthroid dose from 150 to 200 mcg daily. Repeat thyroid studies in 6 to 8 weeks in outpatient setting. Chronic medical conditions: ? Morbid obesity: BMI 47 on admit. Complicated hospital course, care and prognosis. ? Chronic A-fib: Stable. Continue home Eliquis and diltiazem. ? Type 2 diabetes mellitus: Treated with sliding scale insulin while inpatient. Okay to resume home metformin on discharge. ? Chronic bilateral lower extremity lymphedema: Treated with HENRIETTA hose while inpatient, can continue on discharge as needed. Total clinical time spent by myself addressing the patient's medical issues, reviewing all the data, and collaborating with patient's care team: 35 minutes. Physical Exam Narrative GENERAL: cooperative but dyspneic at rest HEENT: Atraumatic; normocephalic EYES; Anicteric, Normal Conjunctiva NECK; supple, normal thyroid, RESPIRATORY: Diminished to auscultation CARDIOVASCULAR: Regular S1 S2, GI: soft, normoactive bowel sounds, : No Renal angle tenderness; EXTREMITIES: Bipedal edema, no clubbing, MUSCULOSKELETAL: no muscle wasting NEURO: Awake; no lateralizing signs. SKIN: No Rash PSYCH; Flat affect Weight / BMI Weight Weight: 133.2 kg Body Mass Index (BMI) 47.4 ABG / Lab / Microbiology Data 09/04/24 06:14 09/04/24 06:14 Laboratory: Laboratory Results - last 24 hr 09/03/24 16:12: POC Glucose 222 H 09/03/24 21:36: POC Glucose 266 H 09/04/24 06:14: WBC 5.0, RBC 3.75 L, Hgb 11.8 L, Hct 39.8, MCV 106.1 H, MCH 31.5, MCHC 29.6 L, RDW Std Deviation 58.8 H, RDW Coeff of Pattie 15.2 H, Plt Count 122 L, MPV 10.1, Immature Gran % (Auto) 0.600, Neut % (Auto) 64.3, Lymph % (Auto) 21.3, Morehouse % (Auto) 10.8 H, Eos % (Auto) 2.4, Baso % (Auto) 0.6, Absolute Neuts (auto) 3.2, Absolute Lymphs (auto) 1.07, Nucleated RBC % 0, Differential Comment SCANNED, Platelet Estimate SLT DEC, RBC Morphology NORM C+C, Sodium 137, Potassium 4.8, Chloride 101, Carbon Dioxide 35.0 H, Anion Gap 2 L, BUN 35 H, C reatinine 1.09 H, Estim Creat Clear Calc 54.86, Est GFR (MDRD) Af Amer 62, Est GFR (MDRD) Non-Af 51 L, BUN/Creatinine Ratio 32.1 H, Glucose 157 H, Calcium 9.2 09/04/24 06:15: POC Glucose 151 H Microbiology: Microbiology 08/31/24 23:25 Mucosa - Nasopharyngeal Respiratory Panel (PCR) - Final 08/31/24 23:25 Mucosa - Nasopharyngeal Coronavirus COVID-19 PCR - Final D/C Instructions DC O2, CPAP, BIPAP Needs PSN CPAP & BiPAP: BiPAP & CPAP Settings per PSN Mode BiPAP 08/31/24 23:05 Bipap Delivery Device Face Mask 08/31/24 23:05 Additional Home O2 Discharge instructions: No DC home with Oxygen: Yes Home O2 MD Review: I have reviewed the oxygen testing, and the patient qualifies for home oxygen equipment and portability. The patient is mobile in the home and the community. Meaningful Use Info Meaningful Use Meaningful Use Diagnoses (Choose all that apply): CHF CHF GOLDEN/ARB ordered at discharge?: No Reason GOLDEN/ARB not ordered?: Normal EF Documented LVEF (%): 60 Ischemic Stroke Statin Dosing Therapy Reference: STATIN DOSE THERAPY REFERENCE: * Patients > 75 years receive moderate or high dose statin therapy. * Patients 75 years or YOUNGER should receive HIGH intensity statin dose unless contraindicated. You will be required to document reason for non-treatment if statin daily dose does not meet guidelines. HIGH DOSE STATIN THERAPY DAILY Atorvastatin > than or = to 40 mg Rosuvastatin > than or = to 20 mg Amlodipine + Atorvastatin > than or = to 2.5/40 mg Ezetimibe + Simvastatin 10/80 mg Simvastatin 80mg Discharge Plan Admission Admit Date/Time: 08/31/24 17:47 Primary Reason for Your Visit: Shortness of breath, confusion Attending Provider: Beto Fish Primary Care Provider: Mihaela Ybarra Consulting Providers: Jordana Queen; Nico Pratt Instructions Additional Instructions / Restrictions: Start taking Synthroid at increased dose of 200 mcg daily and have repeat thyroid labs done with your primary care doctor in the next 6 to 8 weeks. Discharge Orders/Prescriptions Prescriptions: New levothyroxine 100 mcg Tablet 200 mcg PO DAILY@0600 Qty: 0 0RF Continued metformin 500 mg tablet extended release 24 hr 500 mg PO BREAKFAST apixaban 5 mg tablet 5 mg PO BID Qty: 60 11RF furosemide 40 mg tablet 40 mg PO DAILY ergocalciferol (vitamin D2) 1,250 mcg (50,000 unit) capsule 1,250 mcg PO BID diltiazem HCl 240 mg Capsule,Extended Release 24hr 240 mg PO DAILY Qty: 30 0RF Discontinued levothyroxine 150 tablet 150 mcg PO DAILY Referrals / Follow Up: Mihaela Ybarra MD [Primary Care Provider] - Disposition Disposition (needs filled in before D/C Order can be placed): [facility] Charges/Coding Visit Charges Inpatient E&M: 48242 Disch Hosp >30min
[2024-09-04] MEDS: Morphine 2 MG/ML Syringe IV ×2 (12:38→17:00)
[2024-09-04 13:18] LABS: Bedside Glucose 198 mg/dL (74-106)
[2024-09-04 14:05] VITALS: O2SAT 94
[2024-09-04 16:24] LABS: Bedside Glucose 187 mg/dL (74-106)
[2024-09-04 16:55] VITALS: BP 116/61; PULSE 80; RESP 18; TEMP 36.6; O2SAT 93
== END 2024-09-04 18:35 | disposition skilled nursing facility (03) | DRG 291 ==
LOC: ED 16:56 → PCU 18:13
PROVIDERS: Internal Medicine; Admitting Provider Internal Medicine; Emergency Provider Emergency Medicine; PCP Internal Medicine; Visit Provider Hospitalist
DX: I11.0 Hypertensive heart disease with heart failure (principal); I50.33 Acute on chronic diastolic (congestive) heart failure; G93.41 Metabolic encephalopathy; E66.2 Morbid (severe) obesity with alveolar hypoventilation; I48.20 Chronic atrial fibrillation, unspecified; Z68.42 Body mass index [BMI] 45.0-49.9, adult; E11.9 Type 2 diabetes mellitus without complications; E03.9 Hypothyroidism, unspecified; D64.9 Anemia, unspecified; Z66 Do not resuscitate; E78.5 Hyperlipidemia, unspecified; M54.9 Dorsalgia, unspecified; W19.XXXA Unspecified fall, initial encounter; Z79.01 Long term (current) use of anticoagulants; Z86.16 Personal history of COVID-19; Z79.890 Hormone replacement therapy; Z87.891 Personal history of nicotine dependence; R53.81 Other malaise; R09.02 Hypoxemia; E66.812 Obesity, class 2; G89.29 Other chronic pain
CPT/HCPCS: 36415; 36600; 70450; 71045; 72131; 74176; 80048; 80053; 81001; 82803; 82962; 83036; 83735; 83880; 84100; 84443; 85025; 87633; 87635; 93005; 93306; 94762; 97162; 97166; 97530; 97535; 99285; Q9957; A4216; C8929; J1940

== ENCOUNTER 2024-09-04 18:58 | Inpatient (IN) | payer MEDICARE, OTHER, SELFPAY ==
[2024-09-04 19:46] VITALS: BP 125/78; PULSE 92; RESP 18; TEMP 36.4; O2SAT 93; BMI 48.6
--- NOTE | 2024-09-04 19:48 | HP.PCM_ITS ---
HPI - General General Date of Admission: 09/04/24 Date of Service: 09/06/24 Chief Complaint: Here for rehabilitation. HPI Narrative Eh GILLIAM, is a 83 Female who presents with followin08/31/2024 [facility] ED with back pain. Fall, low back pain, diffuse, worse on right side, forgetful, overwhelmed. Labs okay, urinalysis okay. CT abdomen/pelvis showed anasarca, moderate bilateral pleural effusions. BNP baseline. Oxycodone, Lasix IV given, confused. 08/31/2024 Admit [facility]. Lasix IV, Echo for acute HFpEF. BiPAP for acute respiratory failure with hypoxia. Encephalopathy 2/2 hypercapnia. PT/OT for back pain. 08/31/2024 Echo EF 60%. mild to moderate aortic stenosis. Severe biatrial dilatation. 09/01/2024 Oxygen per nasal cannula for acute respiratory failure with hypoxia. Strict I's + O's, low sodium diet, IV Lasix for acute HFpEF. HENRIETTA hose bilateral lower extremity edema. 09/02/2024 Tired, on oxygen. Encephalopathy resolved. 09/03/2024 Improving, but weak, consider SNF. Back to baseline oxygen. Negative fluid balance for acute HFpEF. Patient wanted to go home but her granddaughter Tana talked her into going to TCU to decrease risk of readmission to hospital. 09/04/2024 Admit to TCU with debility, here for rehabilitation, strengthening, prior to discharge home with . [facility] Medical History (Updated 09/04/24 @ 19:[address] Enzo Michele MD) Diabetes Former smoker On home oxygen therapy Hypertension COVID-19 Atrial fibrillation Nonrheumatic aortic (valve) stenosis Nonrheumatic mitral valve disorder Essential hypertension HTN (hypertension) GI bleed Home Medications ?Medication ?Instructions ?Recorded ?Last Taken ?Type apixaban 5 mg tablet 5 mg PO BID BLOOD THINNER #60 tabs 11/11/23 09/04/24 Rx metformin 500 mg tablet,extended 500 mg PO BREAKFAST DIABETES 11/11/23 07/12/24 History release 24 hr furosemide 40 mg tablet 40 mg PO DAILY EDEMA 07/13/24 07/12/24 History ergocalciferol (vitamin D2) 1,250 1,250 mcg PO BID supplement 08/07/24 Unknown History mcg (50,000 unit) capsule diltiazem HCl 240 mg 240 mg PO DAILY heart #30 caps 08/09/24 09/04/24 Rx capsule,extended release 24 hr levothyroxine 100 mcg tablet 200 mcg (2 x 100 mcg) PO 09/04/24 09/04/24 Rx DAILY@0600 thyroid #0 tabs Allergy/AdvReac Type Severity Reaction Status Date / Time gabapentin Allergy Unknown Unknown Verified 08/31/24 12:10 meloxicam AdvReac Unknown Unknown Verified 08/31/24 12:10 [id number] Reductase AdvReac Unknown Unknown Verified 08/31/24 12:10 Inhibitor Family History Mother Cancer Colon CVA (cerebral vascular accident) Hypertension Father Myocardial infarction Surgical History History of umbilical hernia repair Hx of right knee surgery History of tonsillectomy History of bilateral cataract extraction History of tubal ligation History of cholecystectomy Social History (Updated 09/04/24 @ 19:[address] Enzo Michele MD) household members: spouse Smoking Status: Former smoker alcohol intake: never substance use type: does not use caffeine: Yes Type: carbonated beverages Number of servings: 1 ROS Constitutional Constitutional: Reports weakness; Denies chills, fever(s) or weight gain ENT HEENT: Denies headache(s), nasal congestion or nasal discharge Cardiovascular Cardiovascular: Denies chest pain or palpitations Respiratory/Chest Respiratory/Chest: Denies cough, excessive phlegm production or shortness of breath with exertion Gastrointestinal Gastrointestinal: Denies abdominal pain, nausea or vomiting Genitourinary Genitourinary: Denies dysuria Musculoskeletal Musculoskeletal: Denies joint pain or joint swelling Integumentary Integumentary: Denies rash or wounds Neurologic Neurologic: Denies focal weakness, numbness or tingling Psychiatric Psychiatric: Denies anxiety, auditory hallucinations, depression, homicidal ideation or suicidal ideation Physical Exam Const alert General Appearance: cooperative HEENT normocephalic Eyes PERRL and EOMs intact bilaterally Neck supple, no JVD and no carotid bruits Resp normal respiratory effort, normal air movement and clear to auscultation bilaterally Cardio regular rate and regular rhythm GI normal to inspection, nondistended, normoactive bowel sounds, non-tender and non-distended Extremity normal capillary refill General Extremity: Negative for edema Skin no rashes or lesions noted General Skin Exam: no breakdown Psych affect normal Appearance: appropriate Results Lab / Micro Data 09/05/24 07:05 09/05/24 06:39 Assessment & Plan Assessment/Plan (1) Debility: (2) Intractable back pain: (3) Acute respiratory failure with hypoxia: (4) Acute on chronic diastolic heart failure with preserved ejection fraction: (5) Encephalopathy: (6) Chronic respiratory failure with hypoxia: (7) Diabetes: (8) Essential hypertension: (9) Hypothyroidism: QUALIFIERS: Hypothyroidism type: unspecified Qualified Code(s): E 03.9 - Hypothyroidism, unspecified (10) HLD (hyperlipidemia): QUALIFIERS: Hyperlipidemia type: unspecified Qualified Code(s): E 78.5 - Hyperlipidemia, unspecified (11) Atrial fibrillation: QUALIFIERS: Atrial fibrillation type: unspecified chronic Q ualified Code(s): I48.20 - Chronic atrial fibrillation, unspecified (12) Aortic stenosis: PLAN: Plan 83 year old female with below past medical history hospitalized for acute on chronic respiratory failure with hypoxia 2/2 acute on chronic HFpEF, complicated by encephalopathy, intractable low back pain, admitted to TCU with debility, here for rehabilitation, strengthening, prior to discharge home with . * Debility - PT/OT. * Pain - Tylenol 1000mg q6 prn pain (1-3), Tramadol 50mg q6 prn pain (4-5), Oxycodone 2.5mg q4 prn pain (6-10). * Bowel - senna/colace 1 tablet bid, Magnesium citrate 300mL daily prn. * Adult immunization - Administer pneumonia vaccine, covid vaccine, flu vaccine as appropriate. * DVT prophylaxis - On Eliquis. * Atrial fibrillation - Diltiazem 240mg daily, Eliquis 5mg bid. * Chronic HFpEF - Fuorsemide 40mg daily. * Hypothyroidism - Levothyroxine 200mcg daily. * Diabetes Mellitus II - Metformin XR 500mg daily. * Urinary retention - straight cath to empty, send UA, C+S, start Tamsulosin 0.4mg daily.
[2024-09-04 20:05] VITALS: PULSE 86; RESP 18; O2SAT 96
[2024-09-04] MEDS: traMADol 50 MG Tablet PO (21:03)
[2024-09-04] MEDS: LORazepam 0.5 MG Tablet PO (21:04)
[2024-09-04] MEDS: APIXABAN 5 MG TABLET PO (21:05)
[2024-09-04] MEDS: Acetaminophen 500 MG Tablet 1000 MG PO (23:06)
[2024-09-04] MEDS: oxyCODONE 5 MG Tablet 2.5 MG PO (23:06)
[2024-09-05] MEDS: Nystatin Powder 15gm Bottle 1 APPLIC TOPICAL ×3 (00:43→22:50)
[2024-09-05] MEDS: Levothyroxine 100 MCG Tablet 200 MCG PO (05:49)
[2024-09-05] MEDS: 0.9% Saline Lock 10 ML Syringe IV (05:49)
[2024-09-05 07:25] LABS: Absolute Lymphocyte Count 1.03 X10^3/uL (0.83-4.51); Absolute Neutrophil Count 3.5 X10^3/uL (2.0-7.7); Basophil# 0.05 X10^3/uL; Basophil% 0.9 % (0-1); Eosinophil# 0.11 X10^3/uL; Hematocrit 38.7 % (37-47); Hemoglobin 11.7 g/dL (12.0-15.0); Lymphocyte # 1.03 X10^3/ul (0.83-4.51); Lymphocyte % 19.1 % (19-41); Mean Corp Hgb Conc 30.2 g/dL (32-36); Mean Corpuscular Hgb 32.4 pg (27.0-32.0); Mean Corpuscular Volume 107.2 fL (81-99); Mean Platelet Vol. 9.9 fl (6.2-12.0); Monocyte# 0.66 X10^3/uL; Monocyte% 12.2 % (0-10); NRBC Flagged by Analyzer 0 % (0-5); Neutrophil # 3.54 X10^3/uL (2.7-7.7); Neutrophil % 65.6 % (47-70); Platelet Count 139 K/mm3 (150-450); RBC Distribution Width SD 58.9 fl (35.1-43.9); Red Blood Count 3.61 M/mm3 (4.2-5.4); White Blood Count 5.4 K/mm3 (4.4-11.0)
--- NOTE | 2024-09-05 07:50 | PHA.CONS_ITS ---
Documented by User: Tyshawn Maldonado 09/05/24 08:08 TCU RX Drug Regimen Review Subjective/Objective Subjective/Objective Subjective: TCU admission note. 83 year old female with below past medical history hospitalized for acute on chronic respiratory failure with hypoxia 2/2 acute on chronic HFpEF, complicated by encephalopathy, intractable low back pain, admitted to TCU with debility, here for rehabilitation, strengthening, prior to discharge home with . Objective: Allergies gabapentin Allergy (Unknown, Verified 08/31/24 12:10) Unknown meloxicam Adverse Reaction (Unknown, Verified 08/31/24 12:10) Unknown Gmeyuue-WPD-SaG Reductase Inhibitor Adverse Reaction (Unknown, Verified 08/31/24 12:10) Unknown Current Medications Generic Name Dose Route Start Last Admin Trade Name Freq PRN Reason Stop Dose Admin Acetaminophen 1,000 mg 09/04/24 19:58 09/04/24 23:06 Acetaminophen 500 Mg Tablet PO 1,000 mg Q6H PRN PRN Administration Pain Score 1-3 Apixaban 5 mg 09/04/24 22:00 09/04/24 21:05 Apixaban 5 Mg Tablet PO 5 mg BID SHERRIE Administration Cholecalciferol 25 mcg 09/05/24 10:00 Cholecalciferol (Vit D3) 25 Mcg Tablet (1,000 Units) PO DAILY SHERRIE Diltiazem HCl 240 mg 09/05/24 10:00 Diltiazem Cd 240 Mg Capsule PO DAILY [facility] Protocol Furosemide 40 mg 09/05/24 10:00 Furosemide 40 Mg Tablet PO DAILY SHERRIE Protocol Levothyroxine Sodium 200 mcg 09/05/24 06:00 09/05/24 05:49 Levothyroxine 100 Mcg Tablet PO 200 mcg DAILY@0600 SHERRIE Administration Lorazepam 0.5 mg 09/04/24 20:30 09/04/24 21:04 Lorazepam 0.5 Mg Tablet PO 0.5 mg Q4H PRN PRN Administration ANXIETY/RESTLESSNESS/SLEEP Magnesium Citrate 300 ml 09/04/24 19:58 Magnesium Citrate 300 Ml PO DAILY PRN Constipation Metformin HCl 500 mg 09/05/24 08:00 Metformin (Xr) 500 Mg Tablet PO BREAKFAST SHERRIE Nystatin 1 applic 09/04/24 23:25 09/05/24 00:43 Nystatin Powder 15gm Bottle TOPICAL 1 applic BID SHERRIE Administration Protocol Oxycodone HCl 2.5 mg 09/04/24 19:58 09/04/24 23:06 Oxycodone 5 Mg Tablet PO 2.5 mg Q4H PRN PRN Administration Pain Score 6-10 or Pre PT/OT Senna/Docusate Sodium 1 tablet 09/04/24 22:00 09/04/24 22:10 Senna/Docusate Sodium 1 Tablet PO Not Given BID SHERRIE Sodium Chloride 10 - 40 ml 09/05/24 02:16 09/05/24 05:49 0.9% Saline Lock 10 Ml Syringe IV 10 ml UD PRN Administration SALINE FLUSH Tramadol HCl 50 mg 09/04/24 19:58 09/04/24 21:03 Tramadol 50 Mg Tablet PO 50 mg Q6H PRN PRN Administration Pain Score 4-5 or Pre PT/OT Tuberculin PPD 0.1 ml 09/05/24 10:00 Tuberculin,Purif.Prot.Deriv. 50 Tu/Ml Vial ID 09/05/24 10:01 X1 ONE Tuberculin PPD 0.1 ml 09/12/24 10:00 Tuberculin,Purif.Prot.Deriv. 50 Tu/Ml Vial ID 09/12/24 10:01 X1 ONE Problem List Aortic stenosis (Acute) Diabetes (Acute) Chronic respiratory failure with hypoxia (Chronic) Encephalopathy (Acute) Acute respiratory failure with hypoxia (Acute) Debility (Acute) Intractable back pain (Acute) Acute on chronic diastolic heart failure with preserved ejection fraction (Acute) Essential hypertension (Acute) Hypothyroidism (Chronic) Atrial fibrillation (Acute) Vital Signs Temp Pulse Resp BP Pulse Ox O2 Del Method O2 Flow Rate 97.6 F L 86 18 125/78 H 96 Nasal Cannula 2 09/04/24 19:46 09/04/24 20:05 09/04/24 20:05 09/04/24 19:46 09/04/24 20:05 09/04/24 20:05 09/04/24 20:05 Oxygen Flow Rate (L/min) 2 Oxygen Delivery Method Nasal Cannula Weight: 132.449 kg Body Mass Index (BMI) 48.6 Assessment/Plan: 1. Pain: acetaminophen 1000 mg PO Q6H PRN pain (1-3), tramadol 50 mg PO Q6H PRN pain (4-5), oxycodone 2.5 mg PO Q4H PRN pain (6-10). The patient has used 1 dose of each of acetaminophen, tramadol, and oxycodone so far this admission. Please continue to monitor pain levels, PRN medication usage, LFTs (AST/ALT = 23/20 U/L on 08/31/24), renal function (serum creatinine = 1.09 mg/dL with creatinine clearance ~ 55 mL/min on 09/04/24), for seizures, for respiratory depression, constipation, dizziness/drowsiness, and for syncope/ataxia/falls. Please consider scheduling the patient's acetaminophen 1000 mg PO Q8 if she continues to need PRN pain medications to try to stay ahead of pain levels. 2. Bowel: senna/docusate 1 tablet Po BID, magnesium citrate 300 mL PO daily PRN constipation. The patient has not required any PRN doses of magnesium citrate so far this admission, and the patient's last bowel movement was documented on 09/04/24. Please continue to monitor for constipation, diarrhea, PRN medication usage, and for bowel movements. 3. Atrial fibrillation/chronic HFpEF: apixaban 5 mg Po BID, diltiazem 240 mg PO daily, furosemide 40 mg PO daily. Please continue to monitor for palpitations, for s/s of a CHF exacerbation such as shortness of breath, edema and congestion, for s/s of stroke, for bleeding/excessive bruising, hemoglobin levels (Hgb = 11.7 g/dL on 09/05/24), platelet counts (Plt = 139 K/mm3 on 09/05/24), renal function (serum creatinine = 1.09 mg/dL with creatinine clearance ~ 55 mL/min on 09/04/24), heart rates (recent range = 74-98 beats/min), for constipation, for s/s of dehydration, potassium levels (K = 4.8 mmol/L on 09/04/24), sodium levels (Na = 137 mmol/L on 09/04/24), and calcium levels (Ca = 9.2 mg/dL on 09/04/24). 4. Diabetes Mellitus II: metformin XR 500 mg PO with breakfast. Please continue to monitor blood glucose levels (BG = 157 mg/dL on 09/04/24), hemoglobin A1C levels (A1C = 8.9% on 09/01/24), for GI distress with metformin administration and vitamin B12 levels (B12 = 408 pg/mL on 02/03/19), and renal function(serum creatinine = 1.09 mg/dL with creatinine clearance ~ 55 mL/min and GFRT = 51 mL/min on 09/04/24). The patient's A1C of 8.9% does not seem to match with her BG reading of 157 on 09/04. Please consider obtaining blood glucose readings surrounding mealtimes to see if the patient is indeed having more elevated BG levels throughout the day so as to better determine appropriate additional medical therapy for her Diabetes. 5. Hypothyroidism: levothyroxine 200 mcg PO daily. Please continue to monitor thyroid hormone levels (TSH = 18.9 uIU/mL on 09/01/24, and free T4 = 0.53 ng/dL on 08/08/24), and for s/s of hypo/hyperthyroidism. 6. Vitamin D deficiency: cholecalciferol 25 mcg PO daily. Please continue to monitor for s/s of vitamin D deficiency as well as vitamin D levels (no recent vitamin D level documented). Please consider obtaining a vitamin D level if clinically indicated. 7. Tinea corporis: nystatin powder 1 application topically BID. Please continue to monitor for resolution of tinea corporis. Assessment/Plan for indications treated with psychotropic medications: Anxiety/insomnia: lorazepam 0.5 mg PO Q4H PRN anxiety/restlessness/sleep. The patient has required 1 PRN dose of lorazepam so far this admission. As this medication is PRN at this time, please evaluate usage prior to determining appropriateness of GDR. Please continue to monitor for anxiety, insomnia, drowsiness, dizziness, and syncope/ataxia/falls as well as PRN medication usage. Medical chart and medication regimen reviewed. The following medication irregularities or issues were identified: 1. Pain: acetaminophen 1000 mg PO Q6H PRN pain (1-3), tramadol 50 mg PO Q6H PRN pain (4-5), oxycodone 2.5 mg PO Q4H PRN pain (6-10). Please consider scheduling the patient's acetaminophen 1000 mg PO Q8 if she continues to need PRN pain medications to try to stay ahead of pain levels. 2. Diabetes Mellitus II: metformin XR 500 mg PO with breakfast. The patient's A1C of 8.9% does not seem to match with her BG reading of 157 on 09/04. Please consider obtaining blood glucose readings surrounding mealtimes to see if the patient is indeed having more elevated BG levels throughout the day so as to better determine appropriate additional medical therapy for her Diabetes. 3. Vitamin D deficiency: cholecalciferol 25 mcg PO daily. Please consider obtaining a vitamin D level if clinically indicated. Date Date of Note: 09/05/24 Documented by User: Dr. Enzo Michele MD 09/05/24 13:30 TCU RX Drug Regimen Review Provider Comments Provider responsibility Provider Comments to Recommendations by Pharmacy Agree
[2024-09-05 08:18] LABS: Anion Gap 1 (5-15); BUN 32 mg/dL (7-18); BUN/Creat Ratio 29.9 RATIO (10-20); Calcium,Total 8.9 mg/dL (8.5-10.1); Chloride 98 mmol/L (98-107); Creatinine, Serum 1.07 mg/dL (0.55-1.02); EST Glomerular Filtration Rate 52 mL/min (>60); Est Glom Filt Rate - Afr Amer 63 mL/min (>60); Estimated Creatinine Clearance 54.83 ml/min; Glucose 159 mg/dL (74-106); Potassium 4.7 mmol/L (3.5-5.1); Sodium Level 137 mmol/L (136-145)
[2024-09-05 09:08] VITALS: BP 125/56; PULSE 98; RESP 18; TEMP 36.3; O2SAT 92
[2024-09-05] MEDS: APIXABAN 5 MG TABLET PO ×2 (09:11→22:50)
[2024-09-05] MEDS: dilTIAZem CD 240 MG Capsule PO (09:11)
[2024-09-05] MEDS: metFORMIN (XR) 500 MG Tablet PO (09:11)
[2024-09-05] MEDS: Cholecalciferol (VIT D3) 25 MCG TABLET (1,000 UNITS) PO (09:12)
[2024-09-05] MEDS: Furosemide 40 MG Tablet PO (09:12)
[2024-09-05 09:55] VITALS: BP 148/75; PULSE 93; RESP 18; TEMP 36.4; O2SAT 98
--- NOTE | 2024-09-05 09:55 | NURSING ---
Patient lowered to floor by therapy. Patient c/o pain to her knees. States her knees gave out. No visible injuries noted. Updated Dr. Michele. New orders for images.
--- NOTE | 2024-09-05 10:00 | RAD_ITS ---
STUDY: XR Knee 1 or 2 Views 09/05/2024 2:42 PM REASON FOR EXAM: Female, 83 years old. Increased Pain unable to bear weight TECHNIQUE: XR Knee 2 Views RIGHT COMPARISON: None FINDINGS: Total knee arthroplasty. Normal visualized proximal tibia and fibula. Normal proximal tibiofibular articulation. Normal medial femorotibial compartment. Normal lateral femorotibial compartment. Normal patellofemoral articulation. Joint space is preserved. There are atherosclerotic calcifications. RAD/Knee 1 or 2 Views IMPRESSION: Total knee arthroplasty. Electronically Signed: Rajiv Pruitt MD at 14:44 EST ,
[2024-09-05 10:45] VITALS: O2SAT 2
--- NOTE | 2024-09-05 11:00 | RAD_ITS ---
STUDY: XR Knee 1 or 2 Views 09/05/2024 2:42 PM REASON FOR EXAM: Female, 83 years old. increased pain unable to bear weight-bilateral TECHNIQUE: XR Knee 2 Views LEFT COMPARISON: None FINDINGS: Normal visualized distal femur. Normal visualized proximal tibia and fibula. Normal proximal tibiofibular articulation. There is moderate degenerative arthrosis of the medial femorotibial compartment with moderate joint space narrowing. There is mild degenerative arthrosis of the lateral femorotibial compartment. There is mild degenerative arthrosis of the patellofemoral articulation. There are atherosclerotic calcifications. RAD/Knee 1 or 2 Views IMPRESSION: Degenerative arthrosis. Electronically Signed: Rajiv Pruitt MD at 14:44 EST ,
[2024-09-05] MEDS: oxyCODONE 5 MG Tablet 2.5 MG PO (12:53)
--- NOTE | 2024-09-05 14:55 | NURSING ---
Addendum entered by Virginia Oglesby 09/05/24 18:22: Patient straight cath for 700ml @1530. Pt tolerated well. Original Note: Patient c/o inability to urinate. Bladder scan showed 681 ml in bladder. Updated Dr. Michele. New order to straight cath, UA C&S, and start Flomax. VORB.
[2024-09-05] MEDS: Tuberculin,Purif.prot.deriv. 50 TU/ML Vial 0.1 ML ID (15:29)
[2024-09-05] MEDS: traMADol 50 MG Tablet PO (15:29)
[2024-09-05] MEDS: LORazepam 0.5 MG Tablet PO (15:29)
[2024-09-05 15:37] LABS: Mucous, Urine 0 SEEN /hpf (<or=2+)
[2024-09-05 15:44] LABS: Color, Urine Yellow (Yellow); Glucose, Dipstick Normal (Normal); Ketone-Dipstick Negative (Negative); Leukocyte Esterase-Dipstick Negative /ul (Negative); Nitrite-Dipstick Negative (Negative); Occult Blood-Urine Negative /ul (Negative); Protein-Dipstick Negative (Negative); Specific Gravity, Urine 1.015 (1.002-1.030); Urine Bilirubin Dipstick Negative (Negative); Urine Clarity Clear (Clear); Urine Urobilinogen Normal (Normal)
[2024-09-05 15:58] LABS: Bacteria 1+ /hpf (None Seen); Red Blood Cells-Urine 0-5 SEEN /hpf (0-5); White Blood Cells 0-5 SEEN /hpf (0-5)
[2024-09-05 15:59] LABS: Squamous Epithelial Cells - UA 0-5 SEEN /hpf (5-10)
[2024-09-05 16:49] LABS: Bedside Glucose 158 mg/dL (74-106)
[2024-09-05] MEDS: Glucerna Shake 120 ML LIQUID PO (17:46)
[2024-09-05] MEDS: Tamsulosin HCl 0.4 MG Capsule PO (17:47)
[2024-09-05 21:38] LABS: Bedside Glucose 188 mg/dL (74-106)
[2024-09-05] MEDS: Senna/Docusate Sodium 1 Tablet PO (22:50)
[2024-09-05 23:00] VITALS: O2SAT 93
--- NOTE | 2024-09-06 01:30 | NURSING ---
Resident is unable to void. Bladder scan completed and notes [address] cath using sterile technique w/ immediate return of 600 ml of clear, straw urine. Resident tolerated well. Pericare completed. Will continue to monitor.
--- NOTE | 2024-09-06 04:08 | NURSING ---
Resident has been emotionally labile at times throughout the shift. Initially was unsure of place. Reoriented per staff. Questions why staff keep asking her questions and thinks this is all a gimmick. Nasal cannula out of nares at times and replaced per staff. SpO2 91% initially then level raises to 93% on 2 lpm. Humidification added to O2. Will continue to monitor.
[2024-09-06] MEDS: Levothyroxine 100 MCG Tablet 200 MCG PO (06:12)
--- NOTE | 2024-09-06 06:36 | NURSING ---
Resident asks this nurse if her spouse will be in today. Informed resident this nurse is unsure if he will visit today. She then becomes irritable and agitated. Answered additional questions for resident and she states, you have an answer for everything in an abrasive tone. Reoriented to time and place. Resident then verbalizes she is having pain to her back. This nurse pulled a dose of Tylenol from the [facility] and started to scan medication. Resident then makes a comment that she has not been receiving any medication for pain. Informed resident she had a dose of Tramadol and Oxycodone yesterday. Offered Tylenol and declines. In no acute distress. Will continue to monitor.
[2024-09-06 06:40] VITALS: O2SAT 90
[2024-09-06 06:44] LABS: Bedside Glucose 170 mg/dL (74-106)
--- NOTE | 2024-09-06 08:10 | RAD_ITS ---
STUDY: X-RAY - ABDOMEN/PELVIS REASON FOR EXAM: Female, 83 years old. Constipation TECHNIQUE: Single AP view of the abdomen / pelvis. COMPARISON: None. FINDINGS: There is a moderate amount of colonic fecal material. The visualized liver, spleen and kidneys are grossly normal in size and morphology. Normal soft tissue structures. There are diffuse degenerative changes of the visualized lumbar spine. RAD/Abdomen Single View IMPRESSION: Moderate amount of fecal material is seen in the colon. Electronically Signed: Noah Kauffman MD at 9:54 EST ,
--- NOTE | 2024-09-06 08:14 | NURSING ---
pt is vomitting and says she is have problems swallowing breakfast- notified dr laguna- orders for zofran and abdominal xray given- speech therapy eval placed
[2024-09-06 09:05] VITALS: TEMP 36.5; O2SAT 93
[2024-09-06] MEDS: Ondansetron ODT 4 MG Tablet 8 MG PO (09:14)
[2024-09-06 09:38] LABS: Vitamin D,25 Hydroxy 100.8 ng/mL
--- NOTE | 2024-09-06 11:50 | CASEMGMT ---
Social Work SW met with patient to complete initial assessment. Introduced self and role. Verified/updated contacts. Patient confirms code status as DNR-CCA, no intubation. Pt denied advanced directives nor wanting to complete them. Educated to Medicare benefit and copay coverage. Pt was drowsy throughout assessment and had difficulty hearing. pt would answer the question to what she thought was an appropriate answer, but it was not. For example, SW asked, if pt sits or stands in the bathtub, and pt would answer yes. SW would cue the pt open her eyes, look at this worker then reasked the question, then pt would provide the appropriate answer. Pt also struggled with recalling answers, such as home set up. When SW inquired the reason for admission, pt answered she tripped over the carpet. Pt's DC goal is to return home with . Pt is currently a billy lift. SW will continue to follow for DC planning assistance. Monica Carrillo, ELHAM ELLISW
[2024-09-06 11:54] LABS: Bedside Glucose 169 mg/dL (74-106)
[2024-09-06] MEDS: metFORMIN (XR) 500 MG Tablet PO (12:08)
[2024-09-06] MEDS: dilTIAZem CD 240 MG Capsule PO (12:10)
[2024-09-06] MEDS: Cholecalciferol (VIT D3) 25 MCG TABLET (1,000 UNITS) PO (12:11)
[2024-09-06] MEDS: Nystatin Powder 15gm Bottle 1 APPLIC TOPICAL ×2 (12:11→20:27)
[2024-09-06] MEDS: Senna/Docusate Sodium 1 Tablet PO ×2 (12:11→20:22)
[2024-09-06] MEDS: APIXABAN 5 MG TABLET PO ×2 (12:11→20:22)
[2024-09-06] MEDS: Furosemide 40 MG Tablet PO (12:11)
[2024-09-06] MEDS: Glucerna Shake 120 ML LIQUID PO ×2 (12:52→17:40)
[2024-09-06 14:43] VITALS: O2SAT 94
--- NOTE | 2024-09-06 15:34 | NURSING ---
notified dr laguna on 3rd time for catheter- figueroa inserted
[2024-09-06] MEDS: oxyCODONE 5 MG Tablet 2.5 MG PO (15:56)
[2024-09-06] MEDS: 0.9% Saline Lock 10 ML Syringe IV (16:08)
--- NOTE | 2024-09-06 16:12 | CASEMGMT ---
Social Work SW received message from RN that pt's gdtr, Tana, phoned requesting to speak with this worker. SW returned call to gdtr. Gdtr expressed concerns with pt's cognition and inquired about this worker's observations when met with pt. SW requested clarification to gdtr's concerns, though, did share noted observations from initial assessment. Gdtr provided several examples of pt's memory impairment. One example, pt gave permission to her to leave her bedside to go home after a long day of visiting over the past weekend, in which gddtr was present. Though, once left, pt became very anxious and repeatedly asking where went. Gdtr redirected pt, but pt denied telling he could leave. Another example given by gdtr, pt was holding 's hand, but voiced denial of holding his hand until redirected. SW educated to possible hospital delirium, dx of encephalopathy, change in environment and pain medication. Noted pt's hearing may be misconstrued at times for memory impairment. Gdtr stated pt's hearing impairment is new to the hospitalization; pt is reporting it as being in a tunnel. SW to follow up with nursing and CASE INVESTIGATOR. Educated ST order was entered to better evaluate cognition. Educated briefly to Medicare benefit, to allow time for recovery, and POC meeting scheduled for 09/08. Gdtr plans to attend POC and appreciative of information. SW to follow for DC planning with IDTs recommendations. ELHAM Arshad
[2024-09-06 17:28] LABS: Bedside Glucose 227 mg/dL (74-106)
[2024-09-06] MEDS: Tamsulosin HCl 0.4 MG Capsule PO (17:40)
[2024-09-06] MEDS: Acetaminophen 500 MG Tablet 1000 MG PO (20:22)
--- NOTE | 2024-09-06 20:30 | NURSING ---
Presents in bed, no distress observed or reported at this time, tired, alert to person/place, unable to state correct month or year, states and October and as 1997, unable to state correct time of day, repeatedly asking where is my , why did he go home. Able to redirect. Call light in reach. Denies requests.
[2024-09-06 22:47] LABS: Bedside Glucose 202 mg/dL (74-106)
[2024-09-07] MEDS: Acetaminophen 500 MG Tablet 1000 MG PO ×3 (05:35→21:49)
[2024-09-07] MEDS: Levothyroxine 100 MCG Tablet 200 MCG PO (05:35)
[2024-09-07] MEDS: 0.9% Saline Lock 10 ML Syringe IV ×2 (05:42→21:57)
[2024-09-07 06:32] LABS: Bedside Glucose 182 mg/dL (74-106)
[2024-09-07 07:00] VITALS: O2SAT 94
[2024-09-07] MEDS: Magnesium Citrate 300 ML PO (09:05)
[2024-09-07] MEDS: Glucerna Shake 120 ML LIQUID PO ×2 (09:05→16:50)
[2024-09-07] MEDS: metFORMIN (XR) 500 MG Tablet PO (09:06)
[2024-09-07] MEDS: dilTIAZem CD 240 MG Capsule PO (09:07)
[2024-09-07] MEDS: APIXABAN 5 MG TABLET PO ×2 (09:07→21:48)
[2024-09-07] MEDS: Cholecalciferol (VIT D3) 25 MCG TABLET (1,000 UNITS) PO (09:08)
[2024-09-07] MEDS: Senna/Docusate Sodium 1 Tablet PO ×2 (09:08→21:48)
[2024-09-07] MEDS: Furosemide 40 MG Tablet PO (09:08)
[2024-09-07] MEDS: Nystatin Powder 15gm Bottle 1 APPLIC TOPICAL ×2 (09:15→21:48)
--- NOTE | 2024-09-07 10:54 | NURSING ---
Offered covid vaccine, VIS provided. Resident refuses at this time.
[2024-09-07 11:28] LABS: Bedside Glucose 197 mg/dL (74-106)
[2024-09-07] MEDS: traMADol 50 MG Tablet PO (12:32)
[2024-09-07 15:14] VITALS: O2SAT 87
[2024-09-07 15:15] VITALS: BP 112/62; PULSE 100; RESP 18; TEMP 36.1; O2SAT 96
[2024-09-07 15:17] VITALS: BMI 48.9
[2024-09-07] MEDS: LORazepam 0.5 MG Tablet PO (16:46)
[2024-09-07] MEDS: oxyCODONE 5 MG Tablet 2.5 MG PO (16:46)
[2024-09-07] MEDS: Tamsulosin HCl 0.4 MG Capsule PO (16:48)
[2024-09-07 17:10] LABS: Bedside Glucose 233 mg/dL (74-106)
[2024-09-07 21:46] LABS: Bedside Glucose 224 mg/dL (74-106)
[2024-09-08] MEDS: Acetaminophen 500 MG Tablet 1000 MG PO ×3 (05:35→21:23)
[2024-09-08] MEDS: Levothyroxine 100 MCG Tablet 200 MCG PO (05:36)
--- NOTE | 2024-09-08 06:00 | NURSING ---
Resident has been agitated intermittently during the night. Asked this nurse different questions inquiring when her spouse would be visiting, why she is on a fluid restriction, and why she is in the hospital. Answers provided and she becomes increasingly irritable stating, you just have an answer for everything and you think you're so smart. Active listening provided. Will continue to monitor.
[2024-09-08 06:31] LABS: Bedside Glucose 159 mg/dL (74-106)
[2024-09-08 08:03] VITALS: O2SAT 93
[2024-09-08 08:40] VITALS: BP 119/65; PULSE 86; RESP 18; TEMP 36.1; O2SAT 94
[2024-09-08] MEDS: Senna/Docusate Sodium 1 Tablet PO ×2 (09:03→21:24)
[2024-09-08] MEDS: Cholecalciferol (VIT D3) 25 MCG TABLET (1,000 UNITS) PO (09:03)
[2024-09-08] MEDS: metFORMIN (XR) 500 MG Tablet PO (09:03)
[2024-09-08] MEDS: Nystatin Powder 15gm Bottle 1 APPLIC TOPICAL ×2 (09:04→21:24)
[2024-09-08] MEDS: Furosemide 40 MG Tablet PO (09:04)
[2024-09-08] MEDS: APIXABAN 5 MG TABLET PO ×2 (09:04→21:24)
[2024-09-08] MEDS: dilTIAZem CD 240 MG Capsule PO (09:04)
[2024-09-08] MEDS: Glucerna Shake 120 ML LIQUID PO (09:07)
[2024-09-08] MEDS: traMADol 50 MG Tablet PO (10:21)
[2024-09-08 11:46] LABS: Bedside Glucose 201 mg/dL (74-106)
--- NOTE | 2024-09-08 13:43 | CASEMGMT ---
Social Work IDT met with patient, , dtr and gddtr for care plan meeting. Discussed patient's progress in PT/OT/ST/SN. Educated to Medicare benefit. Provided dtr with written communication on insurance process and copay coverage during stay. Pt reports and family confirms, pt was mod I prior. was in the bathroom while pt showered, but provided no physical assist. SW observed is small in stature and would likely have difficulty providing heavy physical assist for pt. Pt is adamant about returning home. Therapy explained seeing consistency with pt in sessions to discontinue the billy lift. SW reiterated from conversation yesterday, once pt can return to a one person assist with minimal assist, IDT is comfortable with DC home with . SW educated to nonskilled [facility] to assist in the home. However, two assist or billy, would not be a recommendation home. ST discussed cognitive impairment: BCAT . Family expressed concern with major decline in cognition. Dtr reports evenings are worse, which increases her agitation. NURSING SURGICAL SERVICES DIRECTOR noted pt does have OCTAVIO, per CR, but pt does not have a device, which could impact memory. Family expressed understanding. Pt having difficulty comprehending needing to remain in TCU for continued therapy to gain strength and independence to return home. voiced [facility] and has been ordered to not lift. Pt kept repeating I'm not staying here. Family assisted in explaining the logistics to pt, but the conversation continued circling. Pt then closed her eyes, pretending to be sleeping, and not responding. SW noted pt plays possum frequently with staff. Family aware. ANNALEE explained the team will continue to assess pt's progress weekly, however, if pt does not make progress or is not participating, Medicare will cover pt's stay and will need to be discharged. If pt is unable to return home, pt will need to transfer to another SNF. Gdtr stated pt would likely need to apply for Medicaid for that stay. SW explained briefly about eligibility. Gdtr stated pt could likely pay for one month initially, but did inquire about how to protect pt and husbands assets. SW educated and provided resources for elder law attorneys. SW also provided a list of SNF providers that included quality and resource data via [employer] Guide to review. Family appreciative of time and assistance. SW will continue to follow for DC planning. Monica Carrillo [employer]INC[employer]AL BROADCAST MAINTENANCE ENGINEER
[2024-09-08] MEDS: 0.9% Saline Lock 10 ML Syringe IV (14:06)
[2024-09-08] MEDS: Tamsulosin HCl 0.4 MG Capsule PO (16:49)
[2024-09-08 17:06] VITALS: O2SAT 95
[2024-09-08 18:17] LABS: Bedside Glucose 159 mg/dL (74-106)
[2024-09-08 22:26] LABS: Bedside Glucose 186 mg/dL (74-106)
[2024-09-08] MEDS: LORazepam 0.5 MG Tablet PO (23:19)
[2024-09-09] MEDS: 0.9% Saline Lock 10 ML Syringe IV ×2 (04:59→17:30)
[2024-09-09] MEDS: Levothyroxine 100 MCG Tablet 200 MCG PO (05:00)
[2024-09-09] MEDS: Acetaminophen 500 MG Tablet 1000 MG PO ×3 (05:01→21:00)
[2024-09-09 06:10] LABS: Bedside Glucose 137 mg/dL (74-106)
--- NOTE | 2024-09-09 06:21 | NURSING ---
Patient restless and agitated at times, yells out, they won't help me, no one will help me, I just want to . Patient presents as A&Ox3 with disorganized thinking. 1:1 provided and requests for patient to elaborate on who they are and how she feels she is not being helped, patient replies I don't know, I want you to tell me who they are, and I just want to . Patient asked directly if had any plan to self harm, patient states I would never hurt myself, I want you guys to do it for me, just let me patient requests to speak with Dr. Michele this AM. caddie supervisor aware, patient continues to deny plan to self harm. Confidential voicemail left for SW. Written communication left for Dr. Michele review this AM regarding patient intermittent agitation and restlessness and statements of wanting to , and request to speak with Dr. Michele this AM. 1:1 effective. No further requests at this time, call light in reach.
[2024-09-09] MEDS: oxyCODONE 5 MG Tablet 2.5 MG PO (07:41)
[2024-09-09] MEDS: LORazepam 1 MG Tablet PO (07:42)
[2024-09-09] MEDS: metFORMIN (XR) 500 MG Tablet PO (07:42)
[2024-09-09] MEDS: Nystatin Powder 15gm Bottle 1 APPLIC TOPICAL ×2 (07:43→21:00)
[2024-09-09] MEDS: dilTIAZem CD 240 MG Capsule PO (07:43)
[2024-09-09] MEDS: APIXABAN 5 MG TABLET PO ×2 (07:43→21:00)
[2024-09-09] MEDS: Furosemide 40 MG Tablet PO (07:43)
[2024-09-09] MEDS: Cholecalciferol (VIT D3) 25 MCG TABLET (1,000 UNITS) PO (07:44)
[2024-09-09] MEDS: Senna/Docusate Sodium 1 Tablet PO ×2 (07:44→21:00)
--- NOTE | 2024-09-09 08:00 | NURSING ---
Patient yelling and banging bedside table this AM and reports she is in 10/10 pain to skin under breasts. knockout machine operator help reposition patient and cleanse and apply powder under breasts but patient continues to call out and wants to talk to Dr. Michele. Dr. Michele made aware and goes to speak with patient and orders increased dose of Ativan as well as medication and cream to help painful skin under breasts. Patient made aware of increased Ativan dose and she requests that she wants to take it because she is so restless and uncomfortable and also requests to take pain medication. Patient made aware that this may make her sleepy and she reports good, maybe I can get some sleep. Medication administered as well as new medication for painful areas under breasts.
[2024-09-09] MEDS: Clotrimazole/Betamethasone 1 Tube 1 APPLIC TOPICAL ×2 (09:57→21:00)
[2024-09-09] MEDS: Fluconazole 100 MG Tablet PO (09:57)
[2024-09-09 11:46] LABS: Bedside Glucose 175 mg/dL (74-106)
--- NOTE | 2024-09-09 13:35 | NURSING ---
After pain medication and Ativan this AM, patient is resting comfortably and is willing to get up to chair to eat breakfast and transfers x2 assist. After breakfast, patient requests to lay back down and granddaughter comes out to state patient is more confused and was trying to crawl out of chair and asked about which medication patient had been given. Granddaughter informed of patient behaviors and pain this AM and of medication given. Granddaughter is understanding but states that patient is sensitive to medication and acts more confused and requests we separate times of Ativan and oxycodone if possible. At 1000 patient is upset to stomach and dry heaving and tried to sit up on edge of bed and started slipping on edge. Staff is there to assist back to bed and sprite given and patient denies further symptoms. Per therapy, patient will be a Sameer lift until further assessment while lethargic. Patient sleeps the rest of afternoon but is able to work with therapy and transfer to chair x2SPT at this time.
--- NOTE | 2024-09-09 14:45 | CASEMGMT ---
Social Work SW notified by nightspaft nurse of pt voicing wanting to and being agitated. SW spoke with pt at bedside. and dtr present. SW attempted to visit with pt alone but pt insisted on having family remain at bedside. SW explored pt's wishes and events with nursing over the last day. Pt acknowledged making those statements but admitted to not having any merit, she was just having a bad moment. SW provided active listening. SW asked if pt had thoughts, plans, intents of harming herself or wanting to kill herself. Pt adamantly denied. Pt insists she wants to live and most importantly, wants to go home. SW inquired how this worker can support pt for success moving forward. Pt did not have an answer. SW inquired if pt understood why she cannot go home yet. Pt exhibited disorganized thinking. SW redirected pt and questioned pt again. Pt replied, because [my ] doesn't want to take care of me. SW corrected that isn't physically capable to take care of you at this LOF. Pt repeated back with understanding. SW reiterated the goal is for pt to continue with therapy, to regain strength and independence to safely return home without needing 's assistance. Pt became drowsy and began disengaging in conversation. SW offered assistance to dtr and . Both agreed pt is worse in the evenings and when family is trying to leave; pt gets extra agitated. SW asked when dtr and typically leave. Dtr stated she usually leaves about 5 pm and leaves 10 minutes to 8 before they lock the doors. SW suggested having both/all visitors, leave by 4 pm, prior to it being dark, leaving ample time before the bedtime routine begins, and there is still some lingering distraction from dayshift activity. Explained the goal is to eliminate the trigger associated with pt's angst with prolonged visiting/goodbyes, less agitation but enough time to 'settle down' before bedtime. SW explained to not make a big deal about leaving, do not prepare pt for leaving or notify her of the time family is leaving, just to have a simply goodbye and 'will see you tomorrow'. Family in agreement and worth trialing for several days. Dtr explained it is easier for her to complete, but pt's may have more of a struggle. SW clarified the plan with the . expressed understanding. Dtr expressed not getting enough sleep at home either d/t worrying about pt. SW assured pt is being well-cared for, and encouraged to get restful sleep, and can limit amount of visiting. appreciative. SW offered ongoing support and will monitor for changes/improvement with pt. Monica Carrillo, MARKETING/SALES PERSON PENCIL MAKER
[2024-09-09 15:06] VITALS: BP 117/62; PULSE 71; RESP 15; TEMP 36.6; O2SAT 95
[2024-09-09 16:28] VITALS: O2SAT 93
[2024-09-09 17:06] LABS: Bedside Glucose 210 mg/dL (74-106)
[2024-09-09] MEDS: Tamsulosin HCl 0.4 MG Capsule PO (17:29)
--- NOTE | 2024-09-09 18:35 | NURSING ---
Family concerned about patient's confusion and state she was also forgetful at home and want to talk to Dr. Michele about medications options. Dr. Michele speaks with family tonight and NO for Aricept.
[2024-09-09 20:00] VITALS: PULSE 91; RESP 16
[2024-09-09] MEDS: Donepezil HCl 5 MG Tablet PO (21:00)
[2024-09-09 21:30] LABS: Bedside Glucose 209 mg/dL (74-106)
[2024-09-10 04:00] VITALS: RESP 16
[2024-09-10] MEDS: Acetaminophen 500 MG Tablet 1000 MG PO ×2 (05:18→21:49)
[2024-09-10] MEDS: traMADol 50 MG Tablet PO (05:18)
[2024-09-10] MEDS: Levothyroxine 100 MCG Tablet 200 MCG PO (05:18)
[2024-09-10 06:15] LABS: Absolute Lymphocyte Count 1.18 X10^3/uL (0.83-4.51); Absolute Neutrophil Count 3.5 X10^3/uL (2.0-7.7); Basophil# 0.03 X10^3/uL; Basophil% 0.6 % (0-1); Eosinophils% 1.9 % (0-5); Hematocrit 32.7 % (37-47); Hemoglobin 10.3 g/dL (12.0-15.0); Lymphocyte # 1.18 X10^3/ul (0.83-4.51); Lymphocyte % 22.3 % (19-41); Mean Corp Hgb Conc 31.5 g/dL (32-36); Mean Corpuscular Hgb 32.2 pg (27.0-32.0); Mean Corpuscular Volume 102.2 fL (81-99); Mean Platelet Vol. 10.3 fl (6.2-12.0); Monocyte# 0.51 X10^3/uL; Monocyte% 9.6 % (0-10); NRBC Flagged by Analyzer 0 % (0-5); Neutrophil # 3.47 X10^3/uL (2.7-7.7); Neutrophil % 65.4 % (47-70); Platelet Count 185 K/mm3 (150-450); RBC Distribution Width CV 14.7 % (11.6-14.6); RBC Distribution Width SD 55.7 fl (35.1-43.9); White Blood Count 5.3 K/mm3 (4.4-11.0)
[2024-09-10 06:28] LABS: Bedside Glucose 152 mg/dL (74-106)
[2024-09-10 06:40] LABS: Anion Gap 5 (5-15); BUN 35 mg/dL (7-18); BUN/Creat Ratio 33.7 RATIO (10-20); Calcium,Total 10.2 mg/dL (8.5-10.1); Chloride 90 mmol/L (98-107); Creatinine, Serum 1.04 mg/dL (0.55-1.02); EST Glomerular Filtration Rate 54 mL/min (>60); Est Glom Filt Rate - Afr Amer 65 mL/min (>60); Estimated Creatinine Clearance 56.57 ml/min; Glucose 160 mg/dL (74-106); Potassium 4.6 mmol/L (3.5-5.1); Sodium Level 134 mmol/L (136-145)
[2024-09-10 07:25] VITALS: O2SAT 91
[2024-09-10] MEDS: APIXABAN 5 MG TABLET PO ×2 (08:36→21:50)
[2024-09-10] MEDS: dilTIAZem CD 240 MG Capsule PO (08:36)
[2024-09-10] MEDS: metFORMIN (XR) 500 MG Tablet PO (08:36)
[2024-09-10] MEDS: Furosemide 40 MG Tablet PO (08:37)
[2024-09-10] MEDS: Cholecalciferol (VIT D3) 25 MCG TABLET (1,000 UNITS) PO (08:37)
[2024-09-10] MEDS: Clotrimazole/Betamethasone 1 Tube 1 APPLIC TOPICAL ×2 (08:37→21:53)
[2024-09-10] MEDS: Senna/Docusate Sodium 1 Tablet PO ×2 (08:37→21:50)
[2024-09-10] MEDS: Nystatin Powder 15gm Bottle 1 APPLIC TOPICAL ×2 (08:37→21:51)
--- NOTE | 2024-09-10 09:08 | MDS.RN ---
Pain assessment for MDS complete.
--- NOTE | 2024-09-10 09:09 | MDS.RN ---
Pain assessment for MDS complete.
--- NOTE | 2024-09-10 10:37 | CASEMGMT ---
BIMS () and PHQ2 (0) interviews completed on this date for MDS assessment. AMEENA Myles
[2024-09-10 10:52] VITALS: O2SAT 95
[2024-09-10] MEDS: 0.9% Saline Lock 10 ML Syringe IV ×2 (13:15→21:51)
[2024-09-10 16:00] VITALS: BP 123/80; PULSE 62; RESP 14; TEMP 36.3; O2SAT 98
[2024-09-10] MEDS: Tamsulosin HCl 0.4 MG Capsule PO (16:58)
[2024-09-10 21:06] LABS: Bedside Glucose 189 mg/dL (74-106)
[2024-09-10] MEDS: Donepezil HCl 5 MG Tablet PO (21:50)
[2024-09-10] MEDS: LORazepam 1 MG Tablet PO (21:51)
[2024-09-10] MEDS: Magnesium Citrate 300 ML PO (22:02)
[2024-09-11] MEDS: Levothyroxine 100 MCG Tablet 200 MCG PO (05:55)
[2024-09-11] MEDS: Acetaminophen 500 MG Tablet 1000 MG PO ×3 (05:55→21:48)
[2024-09-11 06:34] LABS: Bedside Glucose 139 mg/dL (74-106)
[2024-09-11 06:53] LABS: Hematocrit 31.6 % (37-47); Hemoglobin 9.9 g/dL (12.0-15.0)
[2024-09-11 07:32] VITALS: O2SAT 96
[2024-09-11 09:01] VITALS: BP 104/64; PULSE 82; RESP 16; TEMP 36.5; O2SAT 93
[2024-09-11] MEDS: dilTIAZem CD 240 MG Capsule PO (09:07)
[2024-09-11] MEDS: APIXABAN 5 MG TABLET PO ×2 (09:07→21:48)
[2024-09-11] MEDS: Nystatin Powder 15gm Bottle 1 APPLIC TOPICAL ×2 (09:07→21:55)
[2024-09-11] MEDS: Furosemide 40 MG Tablet PO (09:07)
[2024-09-11] MEDS: metFORMIN (XR) 500 MG Tablet PO (09:07)
[2024-09-11] MEDS: Clotrimazole/Betamethasone 1 Tube 1 APPLIC TOPICAL ×2 (09:08→21:54)
[2024-09-11] MEDS: Senna/Docusate Sodium 1 Tablet PO ×2 (09:09→21:48)
[2024-09-11] MEDS: Cholecalciferol (VIT D3) 25 MCG TABLET (1,000 UNITS) PO (09:09)
[2024-09-11] MEDS: 0.9% Saline Lock 10 ML Syringe IV ×2 (09:13→22:27)
[2024-09-11 12:05] LABS: Bedside Glucose 170 mg/dL (74-106)
[2024-09-11] MEDS: Tamsulosin HCl 0.4 MG Capsule PO (16:15)
[2024-09-11 16:44] LABS: Bedside Glucose 160 mg/dL (74-106)
[2024-09-11] MEDS: traMADol 50 MG Tablet PO (21:46)
[2024-09-11] MEDS: LORazepam 1 MG Tablet PO (21:47)
[2024-09-11] MEDS: Donepezil HCl 5 MG Tablet PO (21:48)
[2024-09-11 22:08] LABS: Bedside Glucose 184 mg/dL (74-106)
[2024-09-12 06:26] LABS: Bedside Glucose 153 mg/dL (74-106)
[2024-09-12] MEDS: Acetaminophen 500 MG Tablet 1000 MG PO ×2 (06:33→19:02)
[2024-09-12] MEDS: Levothyroxine 100 MCG Tablet 200 MCG PO (06:34)
[2024-09-12 08:24] VITALS: O2SAT 94
[2024-09-12 09:01] VITALS: BP 114/62; PULSE 87; RESP 18; TEMP 36.3
[2024-09-12] MEDS: Cholecalciferol (VIT D3) 25 MCG TABLET (1,000 UNITS) PO (09:11)
[2024-09-12] MEDS: Furosemide 40 MG Tablet PO (09:11)
[2024-09-12] MEDS: dilTIAZem CD 240 MG Capsule PO (09:11)
[2024-09-12] MEDS: Tuberculin,Purif.prot.deriv. 50 TU/ML Vial 0.1 ML ID (09:11)
[2024-09-12] MEDS: APIXABAN 5 MG TABLET PO ×2 (09:11→20:24)
[2024-09-12] MEDS: metFORMIN (XR) 500 MG Tablet PO (09:11)
[2024-09-12] MEDS: Senna/Docusate Sodium 1 Tablet PO ×2 (09:11→20:25)
[2024-09-12] MEDS: Clotrimazole/Betamethasone 1 Tube 1 APPLIC TOPICAL ×2 (09:12→20:25)
[2024-09-12] MEDS: Nystatin Powder 15gm Bottle 1 APPLIC TOPICAL ×2 (09:13→20:24)
[2024-09-12 11:33] LABS: Bedside Glucose 156 mg/dL (74-106)
[2024-09-12] MEDS: Tamsulosin HCl 0.4 MG Capsule PO (16:11)
[2024-09-12] MEDS: 0.9% Saline Lock 10 ML Syringe IV ×2 (16:19→20:28)
[2024-09-12 17:10] LABS: Bedside Glucose 147 mg/dL (74-106)
[2024-09-12] MEDS: traMADol 50 MG Tablet PO (20:22)
[2024-09-12] MEDS: LORazepam 1 MG Tablet PO (20:23)
[2024-09-12] MEDS: Donepezil HCl 5 MG Tablet PO (20:23)
[2024-09-12 20:30] VITALS: RESP 16
[2024-09-12 22:01] LABS: Bedside Glucose 181 mg/dL (74-106)
[2024-09-13] MEDS: LORazepam 1 MG Tablet PO (04:58)
[2024-09-13] MEDS: Levothyroxine 100 MCG Tablet 200 MCG PO (05:00)
[2024-09-13] MEDS: Acetaminophen 500 MG Tablet 1000 MG PO ×3 (05:00→21:05)
[2024-09-13 05:18] VITALS: RESP 16
[2024-09-13 05:43] LABS: Hematocrit 32.1 % (37-47); Hemoglobin 9.9 g/dL (12.0-15.0)
[2024-09-13 06:45] LABS: Bedside Glucose 134 mg/dL (74-106)
[2024-09-13 07:25] VITALS: O2SAT 95
[2024-09-13] MEDS: APIXABAN 5 MG TABLET PO ×2 (08:18→21:05)
[2024-09-13] MEDS: Cholecalciferol (VIT D3) 25 MCG TABLET (1,000 UNITS) PO (08:18)
[2024-09-13] MEDS: Senna/Docusate Sodium 1 Tablet PO ×2 (08:18→21:05)
[2024-09-13] MEDS: Furosemide 40 MG Tablet PO (08:18)
[2024-09-13] MEDS: dilTIAZem CD 240 MG Capsule PO (08:18)
[2024-09-13] MEDS: metFORMIN (XR) 500 MG Tablet PO (08:18)
[2024-09-13] MEDS: Nystatin Powder 15gm Bottle 1 APPLIC TOPICAL ×2 (08:19→21:05)
[2024-09-13] MEDS: Clotrimazole/Betamethasone 1 Tube 1 APPLIC TOPICAL ×2 (08:19→21:05)
--- NOTE | 2024-09-13 09:56 | NURSING ---
Communications Advisor Note; MDS for 09/11/2024 Complete
[2024-09-13] MEDS: 0.9% Saline Lock 10 ML Syringe IV (13:10)
[2024-09-13 15:15] VITALS: BP 112/61; PULSE 76; RESP 18; TEMP 36.3; O2SAT 94
--- NOTE | 2024-09-13 15:18 | CASEMGMT ---
Social Work Pt requesting to speak with this worker. SW presented to room where was at bedside. Both inquired about DC date. SW informed that IDT has a meeting tomorrow and will discuss progress. Though, this worker will provide about a week's notice for DC date. SW to follow up if DC date is set. Both appreciative. Monica Carrillo, CAN COVERER PRODUCTION SUPPLY EQUIPMENT TENDER
[2024-09-13] MEDS: Tamsulosin HCl 0.4 MG Capsule PO (16:41)
[2024-09-13] MEDS: Donepezil HCl 5 MG Tablet PO (21:05)
[2024-09-14] VITALS: RESP 16
[2024-09-14] MEDS: Levothyroxine 100 MCG Tablet 200 MCG PO (05:39)
[2024-09-14] MEDS: Acetaminophen 500 MG Tablet 1000 MG PO ×3 (05:39→20:59)
[2024-09-14 06:23] LABS: Bedside Glucose 169 mg/dL (74-106)
[2024-09-14 06:39] VITALS: O2SAT 92
[2024-09-14] MEDS: Cholecalciferol (VIT D3) 25 MCG TABLET (1,000 UNITS) PO (08:18)
[2024-09-14] MEDS: Furosemide 40 MG Tablet PO (08:18)
[2024-09-14] MEDS: Senna/Docusate Sodium 1 Tablet PO (08:18)
[2024-09-14] MEDS: metFORMIN (XR) 500 MG Tablet PO (08:18)
[2024-09-14] MEDS: APIXABAN 5 MG TABLET PO ×2 (08:19→20:58)
[2024-09-14] MEDS: dilTIAZem CD 240 MG Capsule PO (08:19)
[2024-09-14] MEDS: Clotrimazole/Betamethasone 1 Tube 1 APPLIC TOPICAL ×2 (08:19→20:58)
[2024-09-14] MEDS: Nystatin Powder 15gm Bottle 1 APPLIC TOPICAL ×2 (08:20→20:59)
[2024-09-14 08:39] VITALS: BP 115/61; PULSE 71
--- NOTE | 2024-09-14 13:38 | MDS.RN ---
Information for the MDS was obtained from review of the clinical record, interview of resident, staff, and direct observation of resident?s care.
[2024-09-14 15:00] VITALS: BMI 47.3
--- NOTE | 2024-09-14 15:35 | CASEMGMT ---
Social Work Pt's dtr and visiting outside of pt's room and SW presented, requesting to speak with them. Both agreed. SW explored family's perspective on pt's progress and needs. Dtr/ both agree pt is unable to return home and will need a SNF. Family voiced awareness of pt's inconsistency with therapy, behaviors and attitude. Dtr explained family began touring SNFs and are concerned with SNFs not allowing personal alarms. Though, they toured [facility] and since they do not have the same regulations as 'traditional' SNFs, they can have patient alarms. Family is aware that would be private pay without the ability to bill the insurance for part B therapies. Family is requesting a referral to [facility] and [facility]. Family did discuss with pt over the weekend and that was pt's preference as well. SW agreed to place referrals. Discussed estimated timeframe for DC, pending pt's progress and participation in therapy, is about two weeks. Family in agreement and appreciative of assistance. Monica Carrillo DIRECTOR OPERATING FACTORY PROCESS WORKERS
[2024-09-14 15:55] VITALS: BP 103/54; PULSE 71; RESP 16; TEMP 36.3; O2SAT 98
--- NOTE | 2024-09-14 16:29 | CHAPLAIN ---
Type of Pastoral Visit _x__ Initial Visit ___ Follow-up Visit ___ On-call Visit ___ General Patient Visit ___ Spiritual Assessment ___ Family Conference ___ Bereavement ___ Rapid Response ___ Code Blue ___ Other (describe below) Pastoral Care Referral From ___ Patient ___ Family _x__ Nurse ___ Physician ___ Ict Sales Assistant ___ Biomedical Manager ___ Other (describe below) Sacrament/Intervention _x__ Active listening ___ Anointing ___ Yarsani ___ Bereavement ___ Communion ___ Lety exploration ___ ___ Life review _x__ Prayer ___ Reconciliation ___ Sacrament of Sick _x__ Supportive presence ___ Wedding ___ Other (describe below) Pastoral Comments LINING CASER recommended visit as she earlier noticed that a family member had left the room and was tearful; pt is offered presence and support and she readily agrees; pt admits that she is having a difficult time with her situation and also speaks of how difficult it is for her family; pt asks for prayers and also talks openly about her emotions and concerns of whether she can go home; pt is given time to talk, reflection on her feelings, and presence
[2024-09-14] MEDS: 0.9% Saline Lock 10 ML Syringe IV (16:55)
[2024-09-14] MEDS: Tamsulosin HCl 0.4 MG Capsule PO (16:55)
[2024-09-14 17:04] VITALS: O2SAT 94
[2024-09-14] MEDS: Donepezil HCl 5 MG Tablet PO (20:58)
[2024-09-14 21:41] LABS: Bedside Glucose 157 mg/dL (74-106)
[2024-09-15] MEDS: LORazepam 1 MG Tablet PO ×2 (00:24→23:23)
[2024-09-15] MEDS: Acetaminophen 500 MG Tablet 1000 MG PO ×3 (05:48→20:04)
[2024-09-15] MEDS: oxyCODONE 5 MG Tablet 2.5 MG PO ×2 (05:48→14:38)
[2024-09-15] MEDS: Levothyroxine 100 MCG Tablet 200 MCG PO (05:49)
[2024-09-15 06:22] LABS: Hematocrit 31.5 % (37-47); Hemoglobin 9.7 g/dL (12.0-15.0)
[2024-09-15 06:25] LABS: Bedside Glucose 129 mg/dL (74-106)
[2024-09-15 07:29] VITALS: O2SAT 93
[2024-09-15] MEDS: Furosemide 40 MG Tablet PO (08:35)
[2024-09-15] MEDS: Senna/Docusate Sodium 1 Tablet PO ×2 (08:36→20:05)
[2024-09-15] MEDS: metFORMIN (XR) 500 MG Tablet PO (08:36)
[2024-09-15] MEDS: APIXABAN 5 MG TABLET PO ×2 (08:36→20:06)
[2024-09-15] MEDS: dilTIAZem CD 240 MG Capsule PO (08:36)
[2024-09-15] MEDS: Nystatin Powder 15gm Bottle 1 APPLIC TOPICAL ×2 (08:37→20:11)
[2024-09-15] MEDS: Cholecalciferol (VIT D3) 25 MCG TABLET (1,000 UNITS) PO (08:37)
[2024-09-15] MEDS: Clotrimazole/Betamethasone 1 Tube 1 APPLIC TOPICAL ×2 (08:38→20:05)
[2024-09-15 08:47] VITALS: BP 115/63; PULSE 77; RESP 17; TEMP 36.6; O2SAT 96
--- NOTE | 2024-09-15 11:18 | CASEMGMT ---
Social Work Referral sent to the [facility] via [email or web address] at this time. Phone call to Cynthia at [facility] and provided information on referral and request to review. Phone call to Felicitas at the [facility] who states she does have beds available but it will take an extended amount of time to review the referral and pt may not be able to admit until after the first of the year. SW requested that the referral be reviewed and SW will follow up for acceptance. Clinicals faxed. SW to follow up on SNF referrals. AMEENA Myles
[2024-09-15 15:47] LABS: Mucous, Urine 0 SEEN /hpf (<or=2+)
[2024-09-15 15:55] LABS: Color, Urine Yellow (Yellow); Glucose, Dipstick Normal (Normal); Ketone-Dipstick Negative (Negative); Leukocyte Esterase-Dipstick 500 /ul (Negative); Nitrite-Dipstick Positive (Negative); Occult Blood-Urine 250 /ul (Negative); Protein-Dipstick 30 mg/dl (Negative); Specific Gravity, Urine 1.015 (1.002-1.030); Urine Bilirubin Dipstick Negative (Negative); Urine Clarity Cloudy (Clear); Urine Urobilinogen Normal (Normal)
[2024-09-15 16:28] LABS: Bacteria 1+ /hpf (None Seen); Hyaline Cast 0-5 SEEN /lpf (0-5); Red Blood Cells-Urine 10-25 SEEN /hpf (0-5); Squamous Epithelial Cells - UA 0-5 SEEN /hpf (5-10); White Blood Cells >100 SEEN /hpf (0-5)
[2024-09-15] MEDS: Tamsulosin HCl 0.4 MG Capsule PO (17:06)
[2024-09-15] MEDS: Ondansetron ODT 4 MG Tablet 8 MG PO (17:08)
[2024-09-15 17:36] VITALS: O2SAT 96
--- NOTE | 2024-09-15 19:50 | PCM.DC.SUM ---
Providers Date of Admission: 09/04/24 Primary Care Physician: Dr. Mihaela Ybarra MD Reason For Visit: AMS, AECHF Diagnosis Discharge Diagnosis (1) Debility: Status: Acute Code(s): R53.81 - Other malaise (2) Intractable back pain: Status: Acute Code(s): M54.9 - Dorsalgia, unspecified (3) Acute respiratory failure with hypoxia: Status: Acute Code(s): J96.01 - Acute respiratory failure with hypoxia (4) Acute on chronic diastolic heart failure with preserved ejection fraction: Status: Resolved Code(s): I50.33 - Acute on chronic diastolic (congestive) heart failure (5) Encephalopathy: Status: Acute Code(s): G93.40 - Encephalopathy, unspecified (6) Chronic respiratory failure with hypoxia: Status: Chronic Code(s): J96.11 - Chronic respiratory failure with hypoxia (7) Diabetes: Status: Acute Code(s): E11.9 - Type 2 diabetes mellitus without complications (8) Essential hypertension: Status: Acute Code(s): I10 - Essential (primary) hypertension (9) Hypothyroidism: Status: Chronic Code(s): E03.9 - Hypothyroidism, unspecified Qualifiers: Hypothyroidism type: unspecified Qualified Code(s): E03.9 - Hypothyroidism, unspecified (10) HLD (hyperlipidemia): Status: Ruled-out Code(s): E78.5 - Hyperlipidemia, unspecified Qualifiers: Hyperlipidemia type: unspecified Qualified Code(s): E78.5 - Hyperlipidemia, unspecified (11) Atrial fibrillation: Status: Acute Code(s): I48.91 - Unspecified atrial fibrillation Qualifiers: Atrial fibrillation type: unspecified chronic Qualified Code(s): I48.20 - Chronic atrial fibrillation, unspecified (12) Aortic stenosis: Status: Acute Code(s): I35.0 - Nonrheumatic aortic (valve) stenosis Plan 83 year old female with below past medical history hospitalized for acute on chronic respiratory failure with hypoxia 2/2 acute on chronic HFpEF, complicated by encephalopathy, intractable low back pain, admitted to TCU with debility, here for rehabilitation, strengthening, prior to discharge home with . Debility - PT/OT. Pain - Tylenol 1000mg q6 prn pain (1-3), Tramadol 50mg q6 prn pain (4-5), Oxycodone 2.5mg q4 prn pain (6-10). Bowel - senna/colace 1 tablet bid, Magnesium citrate 300mL daily prn. Adult immunization - Administer pneumonia vaccine, covid vaccine, flu vaccine as appropriate. DVT prophylaxis - On Eliquis. Atrial fibrillation - Diltiazem 240mg daily, Eliquis 5mg bid. Chronic HFpEF - Fuorsemide 40mg daily. Hypothyroidism - Levothyroxine 200mcg daily. Diabetes Mellitus II - Metformin XR 500mg daily. Urinary retention - straight cath to empty, send UA, C+S, start Tamsulosin 0.4mg daily. Medications at Discharge Home Medications apixaban 5 mg tablet 5 mg PO BID BLOOD THINNER #60 tabs 11/11/23 metformin 500 mg tablet,extended release 24 hr 500 mg PO BREAKFAST DIABETES 11/11/23 furosemide 40 mg tablet 40 mg PO DAILY EDEMA 07/13/24 diltiazem HCl 240 mg capsule,extended release 24 hr 240 mg PO DAILY heart #30 caps 08/09/24 levothyroxine 100 mcg tablet 200 mcg (2 x 100 mcg) PO DAILY@0600 thyroid #0 tabs 09/04/24 acetaminophen 500 mg tablet 1,000 mg (2 x 500 mg) PO Q8 #0 tabs 09/15/24 cholecalciferol (vitamin D3) 25 mcg (1,000 unit) tablet 25 mcg PO DAILY #0 tabs 09/15/24 clotrimazole-betamethasone 1 %-0.05 % topical cream 1 applic topical BID #0 grams 09/15/24 donepezil 5 mg tablet 5 mg PO QHS #0 tabs 09/15/24 lorazepam 1 mg tablet 1 mg PO Q4H PRN PRN Anxiety/Restlessness/Sleep 3 days #18 tabs 09/15/24 magnesium citrate 300 ml PO DAILY PRN Constipation #0 mL 09/15/24 nystatin 100,000 unit/gram topical powder ([facility]) 1 applic topical BID #0 grams 09/15/24 ondansetron 4 mg disintegrating tablet 8 mg (2 x 4 mg) PO Q8H PRN PRN Nausea/Vomiting #0 tabs 09/15/24 oxycodone 5 mg tablet 2.5 mg (1/2 x 5 mg) PO Q4H PRN PRN Pain Score 6-10 Or Pre Pt/Ot 3 days #9 tabs 09/15/24 sennosides 8.6 mg-docusate sodium 50 mg tablet (Stimulant Laxative Plus) 1 tab PO BID #0 tabs 09/15/24 tamsulosin 0.4 mg capsule 0.4 mg PO DAILY@1730 #0 caps 09/15/24 tramadol 50 mg tablet 50 mg PO Q6H PRN PRN Pain Score 4-5 Or Pre Pt/Ot 3 days #12 tabs 09/15/24 Hospital Course Operations None Procedures None Summary of Care Provided Minutes Spent on Discharge: 35 Hospital Course: 83 year old female with below past medical history hospitalized for acute on chronic respiratory failure with hypoxia 2/2 acute on chronic HFpEF, complicated by encephalopathy, intractable low back pain, admitted to TCU with debility, here for rehabilitation, strengthening, prior to discharge home with . Discharge to SNF 09/19/2024, intermediate, part B therapies. Physical Exam Const alert General Appearance: cooperative HEENT normocephalic Eyes PERRL and EOMs intact bilaterally Neck supple, no JVD and no carotid bruits Resp normal respiratory effort, normal air movement and clear to auscultation bilaterally Cardio regular rate and regular rhythm GI normal to inspection, nondistended, normoactive bowel sounds, non-tender and non-distended Extremity normal capillary refill General Extremity: Negative for edema Skin no rashes or lesions noted General Skin Exam: no breakdown Psych affect normal Appearance: appropriate Weight / BMI Weight Weight: 129.138 kg Body Mass Index (BMI) 47.3 ABG / Lab / Microbiology Data 09/15/24 05:44 09/10/24 05:35 Laboratory: Laboratory Results - last 24 hr 09/14/24 21:22: POC Glucose 157 H 09/15/24 05:44: Hgb 9.7 L, Hct 31.5 L 09/15/24 05:56: POC Glucose 129 H 09/15/24 15:30: Urine Color Yellow, Urine Clarity Cloudy, Urine pH 5.0, Ur Specific [place] 1.015, Urine Protein 30 H, Urine Glucose (UA) Normal, Urine Ketones Negative, Urine Occult Blood 250 H, Urine Nitrite Positive H, Urine Bilirubin Negative, Urine Urobilinogen Normal, Ur Leukocyte Esterase 500 H, Urine RBC 10-25 SEEN, Urine WBC >100 SEEN, Ur Squamous Epith Cells 0-5 SEEN, Urine Bacteria 1+, Hyaline Casts 0-5 SEEN, Urine Mucus 0 SEEN Microbiology: Microbiology 09/13/24 09:46 Nasal Secretion SARS-CoV-2 Antigen (Rapid) - Final 09/05/24 15:34 Urine Catheter - Catheter Urine Culture - Final Culture exhibits no growth. D/C Instructions Discharge Diet: No restrictions Discharge Activity: Return to Normal Activity and Use Walker Weight Bearing Status: Weight bearing as tolerated Call your doctor if you observe: Fever of 101 or Higher, Inability to urinate, Inability to have a bowel movement, Shortness of breath, Dizziness, Fainting spells, Swelling in the ankles, Chest pain and Uncontrolled pain DC O2, CPAP, BIPAP Needs Home O2 Discharge instructions: No Additional Instructions: Discharge to SNF 09/19/2024, intermediate, part B therapies. Please Follow Up With: Jose L Cha MD When: As scheduled. Meaningful Use Info Meaningful Use Meaningful Use Diagnoses (Choose all that apply): None applicable Ischemic Stroke Statin Dosing Therapy Reference: STATIN DOSE THERAPY REFERENCE: * Patients > 75 years receive moderate or high dose statin therapy. * Patients 75 years or YOUNGER should receive HIGH intensity statin dose unless contraindicated. You will be required to document reason for non-treatment if statin daily dose does not meet guidelines. HIGH DOSE STATIN THERAPY DAILY Atorvastatin > than or = to 40 mg Rosuvastatin > than or = to 20 mg Amlodipine + Atorvastatin > than or = to 2.5/40 mg Ezetimibe + Simvastatin 10/80 mg Simvastatin 80mg Discharge Plan Admission Admit Date/Time: 09/04/24 18:58 Primary Reason for Your Visit: Debility. Attending Provider: Enzo Michele Chi Primary Care Provider: Mihaela Ybarra Instructions Additional Instructions / Restrictions: Discharge to SNF 09/19/2024, intermediate, part B therapies. Discharge Orders/Prescriptions Prescriptions: New donepezil 5 mg Tablet 5 mg PO QHS Qty: 0 0RF sennosides-docusate sodium [Stimulant Laxative Plus] 8.6-50 mg Tablet 1 tab PO BID Qty: 0 0RF tramadol 50 mg Tablet 50 mg PO Q6H PRN PRN (Reason: Pain Score 4-5 Or Pre Pt/Ot) 3 Days Qty: 12 0RF acetaminophen 500 mg Tablet 1,000 mg PO Q8 Qty: 0 0RF tamsulosin 0.4 mg Capsule 0.4 mg PO DAILY@1730 Qty: 0 0RF clotrimazole-betamethasone 1-0.05 % Cream 1 applic topical BID Qty: 0 0RF Protocol: *Topical Application Instructions APPLICATION INSTRUCTIONS: Under breasts. magnesium citrate Solution 300 ml PO DAILY PRN (Reason: Constipation) Qty: 0 0RF nystatin [Nyamyc] 100,000 unit/gram Powder 1 applic topical BID Qty: 0 0RF Protocol: *Topical Application Instructions APPLICATION INSTRUCTIONS: Under breasts, ABD, Groin lorazepam 1 mg Tablet 1 mg PO Q4H PRN PRN (Reason: Anxiety/Restlessness/Sleep) 3 Days Qty: 18 0RF ondansetron 4 mg Tablet,Disintegrating 8 mg PO Q8H PRN PRN (Reason: Nausea/Vomiting) Qty: 0 0RF oxycodone 5 mg Tablet 2.5 mg PO Q4H PRN PRN (Reason: Pain Score 6-10 Or Pre Pt/Ot) 3 Days Qty: 9 0RF cholecalciferol (vitamin D3) 25 mcg (1,000 unit) Tablet 25 mcg PO DAILY Qty: 0 0RF Continued metformin 500 mg tablet extended release 24 hr 500 mg PO BREAKFAST apixaban 5 mg tablet 5 mg PO BID Qty: 60 11RF furosemide 40 mg tablet 40 mg PO DAILY diltiazem HCl 240 mg Capsule,Extended Release 24hr 240 mg PO DAILY Qty: 30 0RF levothyroxine 100 mcg Tablet 200 mcg PO DAILY@0600 Qty: 0 0RF Discontinued ergocalciferol (vitamin D2) 1,250 mcg (50,000 unit) capsule 1,250 mcg PO BID Referrals / Follow Up: Mihaela Ybarra MD [Primary Care Provider] - Disposition Disposition (needs filled in before D/C Order can be placed): NonSkilled NH/Intermed Care
--- NOTE | 2024-09-15 19:57 | TREXTCAR_ITS ---
Diet Diet Order/Speech Therapy: 09/04/24 19:02 Diet: Cardiac: Calorie-Controlled Food consistency:: Regular Liquid Consistency:: Regular/Thin Dietary Modifications:: Sodium Restricted Consistent Carbohydrate Fluid restriction:: 1500 mL How many daily calories?: 1800 calorie Routine Orders/Code Status Code Status: DNRCC-A (No intubation.) DC O2, CPAP, BIPAP needs Home O2 Discharge instructions: No Wound(s) B/L breast: Wound Type: MASD Therapies Weight Bearing: Weight bearing as tolerated Extremity Affected:: Bilateral Lower Physical Therapy: Eval and Treat Occupational Therapy: Eval and Treat Speech Therapy: Eval and Treat Problem/Diagnosis (1) Debility: Status: Acute Code(s): R53.81 - Other malaise (2) Intractable back pain: Status: Acute Code(s): M54.9 - Dorsalgia, unspecified (3) Acute respiratory failure with hypoxia: Status: Acute Code(s): J96.01 - Acute respiratory failure with hypoxia (4) Acute on chronic diastolic heart failure with preserved ejection fraction: Status: Resolved Code(s): I50.33 - Acute on chronic diastolic (congestive) heart failure (5) Encephalopathy: Status: Acute Code(s): G93.40 - Encephalopathy, unspecified (6) Chronic respiratory failure with hypoxia: Status: Chronic Code(s): J96.11 - Chronic respiratory failure with hypoxia (7) Diabetes: Status: Acute Code(s): E11.9 - Type 2 diabetes mellitus without complications (8) Essential hypertension: Status: Acute Code(s): I10 - Essential (primary) hypertension (9) Hypothyroidism: Status: Chronic Code(s): E03.9 - Hypothyroidism, unspecified (10) HLD (hyperlipidemia): Status: Ruled-out Code(s): E78.5 - Hyperlipidemia, unspecified (11) Atrial fibrillation: Status: Acute Code(s): I48.91 - Unspecified atrial fibrillation (12) Aortic stenosis: Status: Acute Code(s): I35.0 - Nonrheumatic aortic (valve) stenosis Plan 83 year old female with below past medical history hospitalized for acute on chronic respiratory failure with hypoxia 2/2 acute on chronic HFpEF, complicated by encephalopathy, intractable low back pain, admitted to TCU with debility, here for rehabilitation, strengthening, prior to discharge home with . * Debility - PT/OT. * Pain - Tylenol 1000mg q6 prn pain (1-3), Tramadol 50mg q6 prn pain (4-5), Oxycodone 2.5mg q4 prn pain (6-10). * Bowel - senna/colace 1 tablet bid, Magnesium citrate 300mL daily prn. * Adult immunization - Administer pneumonia vaccine, covid vaccine, flu vaccine as appropriate. * DVT prophylaxis - On Eliquis. * Atrial fibrillation - Diltiazem 240mg daily, Eliquis 5mg bid. * Chronic HFpEF - Fuorsemide 40mg daily. * Hypothyroidism - Levothyroxine 200mcg daily. * Diabetes Mellitus II - Metformin XR 500mg daily. * Urinary retention - straight cath to empty, send UA, C+S, start Tamsulosin 0.4mg daily. Allergies/Procedures Done in Hospital Allergies gabapentin Allergy (Unknown, Verified 08/31/24 12:10) Unknown meloxicam Adverse Reaction (Unknown, Verified 08/31/24 12:10) Unknown [id number] Reductase Inhibitor Adverse Reaction (Unknown, Verified 08/31/24 12:10) Unknown Procedures: None Type of Care/Length of Stay Estimated LOS: Convalescent Care Less Than 30 days Type of Care Needed: Intermediate Rehab Potential: Fair Prognosis: Fair Additional Orders/Day of Discharge Day of Discharge: 09/19/24 Dietary and Speech Recommendations Dietitian Recommendations/Changes: Continue 1800 raj Consistent CHO/ Sodium restricted diet as ordered Follow Up Care Please Follow Up With: Jose L Cha MD Discharge Plan Admission Admit Date/Time: 09/04/24 18:58 Primary Reason for Your Visit: Debility. Attending Provider: Enzo Michele Chi Primary Care Provider: Mihaela Ybarra Instructions Additional Instructions / Restrictions: Discharge to SNF 09/19/2024, intermediate, part B therapies. Discharge Orders/Prescriptions Prescriptions: New donepezil 5 mg Tablet 5 mg PO QHS Qty: 0 0RF sennosides-docusate sodium [Stimulant Laxative Plus] 8.6-50 mg Tablet 1 tab PO BID Qty: 0 0RF tramadol 50 mg Tablet 50 mg PO Q6H PRN PRN (Reason: Pain Score 4-5 Or Pre Pt/Ot) 3 Days Qty: 12 0RF acetaminophen 500 mg Tablet 1,000 mg PO Q8 Qty: 0 0RF tamsulosin 0.4 mg Capsule 0.4 mg PO DAILY@1730 Qty: 0 0RF clotrimazole-betamethasone 1-0.05 % Cream 1 applic topical BID Qty: 0 0RF Protocol: *Topical Application Instructions APPLICATION INSTRUCTIONS: Under breasts. magnesium citrate Solution 300 ml PO DAILY PRN (Reason: Constipation) Qty: 0 0RF nystatin [Nyamyc] 100,000 unit/gram Powder 1 applic topical BID Qty: 0 0RF Protocol: *Topical Application Instructions APPLICATION INSTRUCTIONS: Under breasts, ABD, Groin lorazepam 1 mg Tablet 1 mg PO Q4H PRN PRN (Reason: Anxiety/Restlessness/Sleep) 3 Days Qty: 18 0RF ondansetron 4 mg Tablet,Disintegrating 8 mg PO Q8H PRN PRN (Reason: Nausea/Vomiting) Qty: 0 0RF oxycodone 5 mg Tablet 2.5 mg PO Q4H PRN PRN (Reason: Pain Score 6-10 Or Pre Pt/Ot) 3 Days Qty: 9 0RF cholecalciferol (vitamin D3) 25 mcg (1,000 unit) Tablet 25 mcg PO DAILY Qty: 0 0RF Continued metformin 500 mg tablet extended release 24 hr 500 mg PO BREAKFAST apixaban 5 mg tablet 5 mg PO BID Qty: 60 11RF furosemide 40 mg tablet 40 mg PO DAILY diltiazem HCl 240 mg Capsule,Extended Release 24hr 240 mg PO DAILY Qty: 30 0RF levothyroxine 100 mcg Tablet 200 mcg PO DAILY@0600 Qty: 0 0RF Discontinued ergocalciferol (vitamin D2) 1,250 mcg (50,000 unit) capsule 1,250 mcg PO BID Referrals / Follow Up: Mihaela Ybarra MD [Primary Care Provider] - Disposition Disposition (needs filled in before D/C Order can be placed): NonSkilled NH/Intermed Care (9) Hypothyroidism Qualifiers: Hypothyroidism type: unspecified Qualified Code(s): E03.9 - Hypothyroidism, unspecified (10) HLD (hyperlipidemia) Qualifiers: Hyperlipidemia type: unspecified Qualified Code(s): E78.5 - Hyperlipidemia, unspecified (11) Atrial fibrillation Qualifiers: Atrial fibrillation type: unspecified chronic Qualified Code(s): I48.20 - Chronic atrial fibrillation, unspecified
[2024-09-15] MEDS: Donepezil HCl 5 MG Tablet PO (20:06)
[2024-09-16] MEDS: Acetaminophen 500 MG Tablet 1000 MG PO ×3 (05:52→22:09)
[2024-09-16] MEDS: Levothyroxine 100 MCG Tablet 200 MCG PO (05:52)
[2024-09-16 06:31] LABS: Bedside Glucose 140 mg/dL (74-106)
[2024-09-16 06:51] VITALS: O2SAT 92
[2024-09-16] MEDS: Furosemide 40 MG Tablet PO (08:06)
[2024-09-16] MEDS: metFORMIN (XR) 500 MG Tablet PO (08:06)
[2024-09-16] MEDS: APIXABAN 5 MG TABLET PO ×2 (08:06→22:09)
[2024-09-16] MEDS: Nystatin Powder 15gm Bottle 1 APPLIC TOPICAL ×2 (08:07→22:09)
[2024-09-16] MEDS: Clotrimazole/Betamethasone 1 Tube 1 APPLIC TOPICAL ×2 (08:07→22:07)
[2024-09-16] MEDS: Senna/Docusate Sodium 1 Tablet PO (08:07)
[2024-09-16] MEDS: Cholecalciferol (VIT D3) 25 MCG TABLET (1,000 UNITS) PO (08:07)
[2024-09-16] MEDS: dilTIAZem CD 240 MG Capsule PO (08:11)
[2024-09-16 08:12] VITALS: BP 119/59; PULSE 77; RESP 16; TEMP 36.4; O2SAT 98
[2024-09-16] MEDS: Nitrofurantoin Macrocrystals 100 MG Capsule PO ×2 (10:00→22:09)
--- NOTE | 2024-09-16 12:12 | CASEMGMT ---
Social Work Phone message received from Cynthia at [facility]. They are able to accept pt. ANNALEE Anderson in TCU notified. AMEENA Myles
[2024-09-16] MEDS: oxyCODONE 5 MG Tablet 2.5 MG PO ×2 (14:56→22:07)
[2024-09-16 14:59] VITALS: O2SAT 93
[2024-09-16] MEDS: Tamsulosin HCl 0.4 MG Capsule PO (16:41)
[2024-09-16] MEDS: LORazepam 1 MG Tablet PO (22:08)
[2024-09-16] MEDS: Donepezil HCl 5 MG Tablet PO (22:09)
[2024-09-17 05:21] LABS: Absolute Lymphocyte Count 1.12 X10^3/uL (0.83-4.51); Absolute Neutrophil Count 4.7 X10^3/uL (2.0-7.7); Basophil# 0.03 X10^3/uL; Basophil% 0.5 % (0-1); Eosinophil# 0.17 X10^3/uL; Eosinophils% 2.6 % (0-5); Hematocrit 31.4 % (37-47); Hemoglobin 9.5 g/dL (12.0-15.0); Lymphocyte # 1.12 X10^3/ul (0.83-4.51); Lymphocyte % 16.9 % (19-41); Mean Corp Hgb Conc 30.3 g/dL (32-36); Mean Corpuscular Hgb 31.7 pg (27.0-32.0); Mean Corpuscular Volume 104.7 fL (81-99); Mean Platelet Vol. 9.7 fl (6.2-12.0); Monocyte# 0.55 X10^3/uL; Monocyte% 8.3 % (0-10); NRBC Flagged by Analyzer 0 % (0-5); Neutrophil # 4.72 X10^3/uL (2.7-7.7); Neutrophil % 71.4 % (47-70); Platelet Count 188 K/mm3 (150-450); RBC Distribution Width CV 13.9 % (11.6-14.6); RBC Distribution Width SD 53.8 fl (35.1-43.9); White Blood Count 6.6 K/mm3 (4.4-11.0)
[2024-09-17 05:51] LABS: Anion Gap 3 (5-15); BUN 25 mg/dL (7-18); BUN/Creat Ratio 25.2 RATIO (10-20); Calcium,Total 9.3 mg/dL (8.5-10.1); Chloride 98 mmol/L (98-107); Creatinine, Serum 0.99 mg/dL (0.55-1.02); EST Glomerular Filtration Rate 57 mL/min (>60); Est Glom Filt Rate - Afr Amer 69 mL/min (>60); Estimated Creatinine Clearance 58.36 ml/min; Glucose 137 mg/dL (74-106); Potassium 4.8 mmol/L (3.5-5.1); Sodium Level 135 mmol/L (136-145)
[2024-09-17] MEDS: Acetaminophen 500 MG Tablet 1000 MG PO ×2 (06:23→20:46)
[2024-09-17] MEDS: Levothyroxine 100 MCG Tablet 200 MCG PO (06:23)
[2024-09-17 06:45] VITALS: O2SAT 95
[2024-09-17 06:49] LABS: Bedside Glucose 134 mg/dL (74-106)
[2024-09-17 08:28] VITALS: BP 114/57; PULSE 81; RESP 18; TEMP 36.1
[2024-09-17] MEDS: metFORMIN (XR) 500 MG Tablet PO (08:31)
[2024-09-17] MEDS: dilTIAZem CD 240 MG Capsule PO (08:31)
[2024-09-17] MEDS: Clotrimazole/Betamethasone 1 Tube 1 APPLIC TOPICAL ×2 (08:32→20:46)
[2024-09-17] MEDS: APIXABAN 5 MG TABLET PO ×2 (08:32→20:46)
[2024-09-17] MEDS: Furosemide 40 MG Tablet PO (08:32)
[2024-09-17] MEDS: Cholecalciferol (VIT D3) 25 MCG TABLET (1,000 UNITS) PO (08:33)
[2024-09-17] MEDS: Senna/Docusate Sodium 1 Tablet PO ×2 (08:33→20:45)
[2024-09-17] MEDS: Nitrofurantoin Macrocrystals 100 MG Capsule PO ×2 (08:33→20:45)
[2024-09-17] MEDS: Nystatin Powder 15gm Bottle 1 APPLIC TOPICAL ×2 (08:33→20:46)
[2024-09-17 15:28] VITALS: O2SAT 96
[2024-09-17] MEDS: Tamsulosin HCl 0.4 MG Capsule PO (16:51)
[2024-09-17] MEDS: Donepezil HCl 5 MG Tablet PO (20:45)
[2024-09-17 21:00] VITALS: PULSE 94; RESP 16
[2024-09-17] MEDS: LORazepam 1 MG Tablet PO (21:02)
[2024-09-18] MEDS: Levothyroxine 100 MCG Tablet 200 MCG PO (05:11)
[2024-09-18] MEDS: Acetaminophen 500 MG Tablet 1000 MG PO ×2 (05:11→13:26)
[2024-09-18 06:09] LABS: Bedside Glucose 117 mg/dL (74-106)
[2024-09-18 08:34] VITALS: O2SAT 96
[2024-09-18] MEDS: metFORMIN (XR) 500 MG Tablet PO (09:10)
[2024-09-18] MEDS: dilTIAZem CD 240 MG Capsule PO (09:13)
[2024-09-18] MEDS: APIXABAN 5 MG TABLET PO ×2 (09:13→20:07)
[2024-09-18] MEDS: Furosemide 40 MG Tablet PO (09:14)
[2024-09-18] MEDS: Nitrofurantoin Macrocrystals 100 MG Capsule PO ×2 (09:14→20:04)
[2024-09-18] MEDS: Nystatin Powder 15gm Bottle 1 APPLIC TOPICAL ×2 (09:14→20:06)
[2024-09-18] MEDS: Senna/Docusate Sodium 1 Tablet PO ×2 (09:15→20:05)
[2024-09-18] MEDS: Cholecalciferol (VIT D3) 25 MCG TABLET (1,000 UNITS) PO (09:15)
[2024-09-18] MEDS: oxyCODONE 5 MG Tablet 2.5 MG PO ×2 (09:20→16:16)
[2024-09-18] MEDS: Clotrimazole/Betamethasone 1 Tube 1 APPLIC TOPICAL ×2 (09:21→20:07)
[2024-09-18 09:24] VITALS: BP 109/47; PULSE 82; O2SAT 91
[2024-09-18 10:45] VITALS: PULSE 84; RESP 18; O2SAT 96
[2024-09-18 13:56] VITALS: O2SAT 96
[2024-09-18 16:00] VITALS: RESP 16; TEMP 36.6
[2024-09-18] MEDS: Tamsulosin HCl 0.4 MG Capsule PO (17:02)
[2024-09-18] MEDS: traMADol 50 MG Tablet PO (20:02)
[2024-09-18] MEDS: LORazepam 1 MG Tablet PO (20:03)
[2024-09-18] MEDS: Donepezil HCl 5 MG Tablet PO (20:05)
[2024-09-18] MEDS: Menthol/Lanolin/Calamine/Znox 113 GM Tube 1 APPLIC TOPICAL (20:06)
[2024-09-19] MEDS: LORazepam 1 MG Tablet PO ×2 (06:20→20:49)
[2024-09-19] MEDS: Levothyroxine 100 MCG Tablet 200 MCG PO (06:21)
[2024-09-19] MEDS: Acetaminophen 500 MG Tablet 1000 MG PO ×3 (06:21→20:51)
[2024-09-19 06:39] LABS: Bedside Glucose 136 mg/dL (74-106)
[2024-09-19 07:32] VITALS: O2SAT 95
[2024-09-19] MEDS: metFORMIN (XR) 500 MG Tablet PO (08:41)
[2024-09-19] MEDS: Menthol/Lanolin/Calamine/Znox 113 GM Tube 1 APPLIC TOPICAL ×2 (08:41→20:52)
[2024-09-19] MEDS: APIXABAN 5 MG TABLET PO ×2 (08:42→20:51)
[2024-09-19] MEDS: Furosemide 40 MG Tablet PO (08:42)
[2024-09-19] MEDS: dilTIAZem CD 240 MG Capsule PO (08:42)
[2024-09-19] MEDS: Nystatin Powder 15gm Bottle 1 APPLIC TOPICAL ×2 (08:43→20:52)
[2024-09-19] MEDS: Nitrofurantoin Macrocrystals 100 MG Capsule PO ×2 (08:43→20:52)
[2024-09-19] MEDS: Senna/Docusate Sodium 1 Tablet PO ×2 (08:44→20:51)
[2024-09-19] MEDS: Cholecalciferol (VIT D3) 25 MCG TABLET (1,000 UNITS) PO (08:44)
[2024-09-19 08:50] VITALS: BP 103/57; PULSE 94; RESP 18; O2SAT 96
[2024-09-19] MEDS: Clotrimazole/Betamethasone 1 Tube 1 APPLIC TOPICAL ×2 (10:46→20:49)
[2024-09-19 13:47] VITALS: RESP 17; TEMP 36.3
[2024-09-19] MEDS: Tamsulosin HCl 0.4 MG Capsule PO (17:42)
[2024-09-19] MEDS: traMADol 50 MG Tablet PO (20:50)
[2024-09-19] MEDS: Donepezil HCl 5 MG Tablet PO (20:53)
[2024-09-19 20:57] VITALS: RESP 16
[2024-09-20] MEDS: Levothyroxine 100 MCG Tablet 200 MCG PO (05:39)
[2024-09-20 06:44] LABS: Bedside Glucose 129 mg/dL (74-106)
[2024-09-20 09:00] VITALS: BP 116/77; PULSE 95; RESP 18; TEMP 36.2; O2SAT 92
[2024-09-20] MEDS: metFORMIN (XR) 500 MG Tablet PO (09:17)
[2024-09-20] MEDS: APIXABAN 5 MG TABLET PO ×2 (09:18→21:25)
[2024-09-20] MEDS: Menthol/Lanolin/Calamine/Znox 113 GM Tube 1 APPLIC TOPICAL ×2 (09:18→21:27)
[2024-09-20] MEDS: dilTIAZem CD 240 MG Capsule PO (09:18)
[2024-09-20] MEDS: Furosemide 40 MG Tablet PO (09:19)
[2024-09-20] MEDS: Senna/Docusate Sodium 1 Tablet PO ×2 (09:19→21:26)
[2024-09-20] MEDS: Clotrimazole/Betamethasone 1 Tube 1 APPLIC TOPICAL ×2 (09:19→21:26)
[2024-09-20] MEDS: Nitrofurantoin Macrocrystals 100 MG Capsule PO ×2 (09:19→21:25)
[2024-09-20] MEDS: Cholecalciferol (VIT D3) 25 MCG TABLET (1,000 UNITS) PO (09:19)
[2024-09-20] MEDS: Nystatin Powder 15gm Bottle 1 APPLIC TOPICAL ×2 (09:20→21:27)
[2024-09-20] MEDS: LORazepam 1 MG Tablet PO ×2 (09:23→21:23)
[2024-09-20 15:10] VITALS: O2SAT 94
[2024-09-20] MEDS: Tamsulosin HCl 0.4 MG Capsule PO (17:43)
[2024-09-20] MEDS: Acetaminophen 500 MG Tablet 1000 MG PO (21:24)
[2024-09-20] MEDS: Donepezil HCl 5 MG Tablet PO (21:26)
[2024-09-20 22:00] VITALS: RESP 18
[2024-09-21] MEDS: Levothyroxine 100 MCG Tablet 200 MCG PO (06:04)
[2024-09-21] MEDS: LORazepam 1 MG Tablet PO (06:05)
[2024-09-21] MEDS: Acetaminophen 500 MG Tablet 1000 MG PO ×3 (06:05→23:21)
[2024-09-21 06:47] LABS: Bedside Glucose 229 mg/dL (74-106)
[2024-09-21 07:02] VITALS: RESP 16
[2024-09-21] MEDS: Furosemide 40 MG Tablet PO (08:06)
[2024-09-21] MEDS: APIXABAN 5 MG TABLET PO ×2 (08:06→23:23)
[2024-09-21] MEDS: dilTIAZem CD 240 MG Capsule PO (08:06)
[2024-09-21] MEDS: metFORMIN (XR) 500 MG Tablet PO (08:06)
[2024-09-21] MEDS: Menthol/Lanolin/Calamine/Znox 113 GM Tube 1 APPLIC TOPICAL ×2 (08:07→23:22)
[2024-09-21] MEDS: Cholecalciferol (VIT D3) 25 MCG TABLET (1,000 UNITS) PO (08:07)
[2024-09-21] MEDS: Nitrofurantoin Macrocrystals 100 MG Capsule PO ×2 (08:07→23:20)
[2024-09-21] MEDS: Senna/Docusate Sodium 1 Tablet PO ×2 (08:07→23:21)
[2024-09-21] MEDS: Nystatin Powder 15gm Bottle 1 APPLIC TOPICAL ×2 (08:08→23:23)
[2024-09-21] MEDS: oxyCODONE 5 MG Tablet 2.5 MG PO (08:21)
[2024-09-21] MEDS: Clotrimazole/Betamethasone 1 Tube 1 APPLIC TOPICAL ×2 (09:08→23:24)
[2024-09-21 10:05] VITALS: O2SAT 93
[2024-09-21 14:19] VITALS: BMI 47.3
--- NOTE | 2024-09-21 15:44 | CASEMGMT ---
Addendum entered by Monica Carrillo 09/21/24 15:56: PASRR completed and d/t documentation noted that on 09/02/24, pt's encephalopathy resolved, pt did not trigger for level II further evaluation. Original Note: Social Work SW phoned dtr to discuss DC plans. explained pt has made progress in therapy and no longer a cotreat, though, confirmed family plan remains SNF at [facility]. IDT also recommends SNF. Dtr confirmed. SW updated that [facility] cannot process new referrals until end of September, but [facility] can accept. Dtr confirmed [facility] is [facility]. SW notified of DC date 09/30. Dtr agreeable. Offered w/c transport, but dtr states she and family can transport. SW to notify [facility] and finalize plans. Dtr appreciative. ANNALEE left VM with Cynthia at [facility], requesting return call to confirm DC. SW to complete PASRR. IDT updated. Plan: DC 09/30, [facility], intermediate, part B therapies, private pay Monica Carrillo PROPELLER TESTER LEARNING ENGINEER
[2024-09-21 16:39] VITALS: O2SAT 93
[2024-09-21] MEDS: Tamsulosin HCl 0.4 MG Capsule PO (16:40)
[2024-09-21] MEDS: Donepezil HCl 5 MG Tablet PO (23:22)
[2024-09-22 06:19] LABS: Bedside Glucose 185 mg/dL (74-106)
[2024-09-22] MEDS: Levothyroxine 100 MCG Tablet 200 MCG PO (06:25)
[2024-09-22] MEDS: Acetaminophen 500 MG Tablet 1000 MG PO ×3 (06:25→22:40)
[2024-09-22 07:52] VITALS: O2SAT 94
[2024-09-22] MEDS: Menthol/Lanolin/Calamine/Znox 113 GM Tube 1 APPLIC TOPICAL ×2 (08:54→22:41)
[2024-09-22] MEDS: metFORMIN (XR) 500 MG Tablet PO (08:54)
[2024-09-22] MEDS: dilTIAZem CD 240 MG Capsule PO (08:55)
[2024-09-22] MEDS: APIXABAN 5 MG TABLET PO ×2 (08:55→22:39)
[2024-09-22] MEDS: Furosemide 40 MG Tablet PO (08:55)
[2024-09-22] MEDS: Clotrimazole/Betamethasone 1 Tube 1 APPLIC TOPICAL ×2 (08:56→23:24)
[2024-09-22] MEDS: Nitrofurantoin Macrocrystals 100 MG Capsule PO ×2 (08:57→22:40)
[2024-09-22] MEDS: Nystatin Powder 15gm Bottle 1 APPLIC TOPICAL ×2 (08:57→22:39)
[2024-09-22] MEDS: Cholecalciferol (VIT D3) 25 MCG TABLET (1,000 UNITS) PO (08:58)
[2024-09-22] MEDS: Senna/Docusate Sodium 1 Tablet PO ×2 (08:58→22:40)
[2024-09-22 09:02] VITALS: BP 129/65; PULSE 95; O2SAT 91
[2024-09-22 10:25] VITALS: PULSE 100; RESP 18; O2SAT 95
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
[2024-09-22] MEDS: oxyCODONE 5 MG Tablet 2.5 MG PO (16:43)
[2024-09-22] MEDS: Tamsulosin HCl 0.4 MG Capsule PO (16:44)
[2024-09-22] MEDS: LORazepam 1 MG Tablet PO (22:38)
[2024-09-22] MEDS: traMADol 50 MG Tablet PO (22:38)
[2024-09-22] MEDS: Donepezil HCl 5 MG Tablet PO (22:41)
[2024-09-23] MEDS: Acetaminophen 500 MG Tablet 1000 MG PO ×3 (05:11→22:45)
[2024-09-23] MEDS: Levothyroxine 100 MCG Tablet 200 MCG PO (05:12)
[2024-09-23 06:43] LABS: Bedside Glucose 163 mg/dL (74-106)
--- NOTE | 2024-09-23 08:18 | NURSING ---
Resident w/ open areas under b/l breasts. Wound edges are red and wound bed w/ pink/yellow marbled tissue. Reports discomfort to the affected area under the rt breast. Discussed obtaining an order for a wound consult and resident is agreeable. Will report to oncoming nurse and continue to monitor.
[2024-09-23] MEDS: metFORMIN (XR) 500 MG Tablet PO (08:52)
[2024-09-23] MEDS: Menthol/Lanolin/Calamine/Znox 113 GM Tube 1 APPLIC TOPICAL ×2 (08:52→22:52)
[2024-09-23] MEDS: dilTIAZem CD 240 MG Capsule PO (08:54)
[2024-09-23] MEDS: APIXABAN 5 MG TABLET PO ×2 (08:55→22:45)
[2024-09-23] MEDS: Furosemide 40 MG Tablet PO (08:55)
[2024-09-23] MEDS: Nitrofurantoin Macrocrystals 100 MG Capsule PO (08:55)
[2024-09-23] MEDS: Nystatin Powder 15gm Bottle 1 APPLIC TOPICAL ×2 (08:55→22:53)
[2024-09-23] MEDS: Cholecalciferol (VIT D3) 25 MCG TABLET (1,000 UNITS) PO (08:56)
[2024-09-23] MEDS: Senna/Docusate Sodium 1 Tablet PO ×2 (08:56→22:45)
[2024-09-23] MEDS: oxyCODONE 5 MG Tablet 2.5 MG PO (09:00)
[2024-09-23 09:13] VITALS: BP 119/57; PULSE 96; O2SAT 94
[2024-09-23] MEDS: Clotrimazole 1 APPLIC Tube TOPICAL ×2 (11:21→22:46)
[2024-09-23 14:06] VITALS: O2SAT 96
[2024-09-23 15:05] VITALS: O2SAT 94
[2024-09-23] MEDS: Tamsulosin HCl 0.4 MG Capsule PO (16:40)
--- NOTE | 2024-09-23 16:54 | CASEMGMT ---
Social Work Phone call to Cynthia at [facility] to discuss discharge plan. Cynthia confirms [facility] can accept pt with planned discharge on 09/30/24. AMEENA Myles
[2024-09-23] MEDS: Donepezil HCl 5 MG Tablet PO (22:45)
[2024-09-24] MEDS: Levothyroxine 100 MCG Tablet 200 MCG PO (05:31)
[2024-09-24] MEDS: Acetaminophen 500 MG Tablet 1000 MG PO ×3 (05:32→22:38)
[2024-09-24 06:05] LABS: Absolute Lymphocyte Count 1.06 X10^3/uL (0.83-4.51); Absolute Neutrophil Count 4.7 X10^3/uL (2.0-7.7); Basophil# 0.03 X10^3/uL; Basophil% 0.4 % (0-1); Eosinophil# 0.37 X10^3/uL; Eosinophils% 5.5 % (0-5); Hematocrit 30.5 % (37-47); Hemoglobin 9.4 g/dL (12.0-15.0); Lymphocyte # 1.06 X10^3/ul (0.83-4.51); Lymphocyte % 15.9 % (19-41); Mean Corp Hgb Conc 30.8 g/dL (32-36); Mean Corpuscular Hgb 31.5 pg (27.0-32.0); Mean Corpuscular Volume 102.3 fL (81-99); Mean Platelet Vol. 9.5 fl (6.2-12.0); Monocyte# 0.52 X10^3/uL; Monocyte% 7.8 % (0-10); NRBC Flagged by Analyzer 0 % (0-5); Neutrophil # 4.67 X10^3/uL (2.7-7.7); Neutrophil % 70.1 % (47-70); Platelet Count 171 K/mm3 (150-450); RBC Distribution Width CV 13.4 % (11.6-14.6); Red Blood Count 2.98 M/mm3 (4.2-5.4); White Blood Count 6.7 K/mm3 (4.4-11.0)
[2024-09-24 06:41] LABS: Anion Gap 0 (5-15); BUN 21 mg/dL (7-18); BUN/Creat Ratio 23.2 RATIO (10-20); Calcium,Total 9.5 mg/dL (8.5-10.1); Chloride 98 mmol/L (98-107); EST Glomerular Filtration Rate 63 mL/min (>60); Est Glom Filt Rate - Afr Amer 76 mL/min (>60); Glucose 170 mg/dL (74-106); Potassium 4.3 mmol/L (3.5-5.1); Sodium Level 135 mmol/L (136-145)
[2024-09-24 06:56] LABS: Bedside Glucose 164 mg/dL (74-106)
[2024-09-24 07:49] VITALS: O2SAT 92
[2024-09-24] MEDS: metFORMIN (XR) 500 MG Tablet PO (08:56)
[2024-09-24] MEDS: APIXABAN 5 MG TABLET PO ×2 (09:00→22:37)
[2024-09-24] MEDS: Clotrimazole 1 APPLIC Tube TOPICAL ×2 (09:00→22:36)
[2024-09-24] MEDS: dilTIAZem CD 240 MG Capsule PO (09:00)
[2024-09-24] MEDS: Furosemide 40 MG Tablet PO (09:00)
[2024-09-24] MEDS: Menthol/Lanolin/Calamine/Znox 113 GM Tube 1 APPLIC TOPICAL ×2 (09:00→22:36)
[2024-09-24] MEDS: Nystatin Powder 15gm Bottle 1 APPLIC TOPICAL ×2 (09:01→22:35)
[2024-09-24] MEDS: Cholecalciferol (VIT D3) 25 MCG TABLET (1,000 UNITS) PO (09:02)
[2024-09-24] MEDS: Senna/Docusate Sodium 1 Tablet PO ×2 (09:02→22:35)
[2024-09-24 10:42] VITALS: O2SAT 96
[2024-09-24 16:00] VITALS: BP 106/63; PULSE 87; RESP 16; TEMP 35.9; O2SAT 96
[2024-09-24] MEDS: Tamsulosin HCl 0.4 MG Capsule PO (17:40)
[2024-09-24] MEDS: Donepezil HCl 5 MG Tablet PO (22:37)
[2024-09-24] MEDS: traMADol 50 MG Tablet PO (22:54)
[2024-09-25] MEDS: Levothyroxine 100 MCG Tablet 200 MCG PO (06:17)
[2024-09-25] MEDS: Acetaminophen 500 MG Tablet 1000 MG PO ×3 (06:17→20:12)
[2024-09-25 06:22] LABS: Bedside Glucose 171 mg/dL (74-106)
[2024-09-25 07:17] VITALS: O2SAT 93
[2024-09-25] MEDS: metFORMIN (XR) 500 MG Tablet PO (08:36)
[2024-09-25] MEDS: APIXABAN 5 MG TABLET PO ×2 (08:37→20:14)
[2024-09-25] MEDS: dilTIAZem CD 240 MG Capsule PO (08:37)
[2024-09-25] MEDS: Furosemide 40 MG Tablet PO (08:38)
[2024-09-25] MEDS: Senna/Docusate Sodium 1 Tablet PO ×2 (08:38→20:12)
[2024-09-25] MEDS: Cholecalciferol (VIT D3) 25 MCG TABLET (1,000 UNITS) PO (08:38)
[2024-09-25] MEDS: Clotrimazole 1 APPLIC Tube TOPICAL ×2 (08:39→20:13)
[2024-09-25] MEDS: Menthol/Lanolin/Calamine/Znox 113 GM Tube 1 APPLIC TOPICAL ×2 (08:39→20:14)
[2024-09-25] MEDS: Nystatin Powder 15gm Bottle 1 APPLIC TOPICAL ×2 (08:39→20:14)
[2024-09-25 14:25] VITALS: BP 101/62; PULSE 69; RESP 16; TEMP 36.3; O2SAT 93
[2024-09-25] MEDS: Tamsulosin HCl 0.4 MG Capsule PO (17:45)
[2024-09-25] MEDS: Donepezil HCl 5 MG Tablet PO (20:14)
[2024-09-26] MEDS: Acetaminophen 500 MG Tablet 1000 MG PO ×3 (04:18→22:27)
[2024-09-26] MEDS: Levothyroxine 100 MCG Tablet 200 MCG PO (04:18)
[2024-09-26] MEDS: LORazepam 1 MG Tablet PO (05:04)
[2024-09-26 06:36] LABS: Bedside Glucose 143 mg/dL (74-106)
[2024-09-26] MEDS: dilTIAZem CD 240 MG Capsule PO (08:29)
[2024-09-26] MEDS: metFORMIN (XR) 500 MG Tablet PO (08:29)
[2024-09-26] MEDS: Furosemide 40 MG Tablet PO (08:30)
[2024-09-26] MEDS: Clotrimazole 1 APPLIC Tube TOPICAL ×2 (08:30→22:29)
[2024-09-26] MEDS: Senna/Docusate Sodium 1 Tablet PO ×2 (08:30→22:30)
[2024-09-26] MEDS: Cholecalciferol (VIT D3) 25 MCG TABLET (1,000 UNITS) PO (08:30)
[2024-09-26] MEDS: APIXABAN 5 MG TABLET PO ×2 (08:30→22:28)
[2024-09-26] MEDS: Menthol/Lanolin/Calamine/Znox 113 GM Tube 1 APPLIC TOPICAL ×2 (08:31→22:28)
[2024-09-26] MEDS: Nystatin Powder 15gm Bottle 1 APPLIC TOPICAL ×2 (08:31→22:28)
[2024-09-26 14:58] VITALS: BP 95/55; PULSE 69; RESP 20; TEMP 36.4; O2SAT 95
[2024-09-26] MEDS: Tamsulosin HCl 0.4 MG Capsule PO (17:01)
[2024-09-26] MEDS: Donepezil HCl 5 MG Tablet PO (22:27)
[2024-09-27] MEDS: Levothyroxine 100 MCG Tablet 200 MCG PO (05:22)
[2024-09-27] MEDS: Acetaminophen 500 MG Tablet 1000 MG PO ×3 (05:22→20:12)
[2024-09-27 06:46] LABS: Bedside Glucose 141 mg/dL (74-106)
[2024-09-27] MEDS: metFORMIN (XR) 500 MG Tablet PO (08:34)
[2024-09-27] MEDS: APIXABAN 5 MG TABLET PO ×2 (08:35→20:11)
[2024-09-27] MEDS: Furosemide 40 MG Tablet PO (08:35)
[2024-09-27] MEDS: dilTIAZem CD 240 MG Capsule PO (08:35)
[2024-09-27] MEDS: Cholecalciferol (VIT D3) 25 MCG TABLET (1,000 UNITS) PO (08:36)
[2024-09-27] MEDS: Clotrimazole 1 APPLIC Tube TOPICAL ×2 (08:36→21:28)
[2024-09-27] MEDS: Senna/Docusate Sodium 1 Tablet PO ×2 (08:36→20:12)
[2024-09-27] MEDS: Nystatin Powder 15gm Bottle 1 APPLIC TOPICAL ×2 (08:37→20:12)
[2024-09-27] MEDS: Menthol/Lanolin/Calamine/Znox 113 GM Tube 1 APPLIC TOPICAL ×2 (08:38→20:13)
[2024-09-27 11:20] VITALS: BP 102/51; PULSE 86; RESP 16; TEMP 35.9; O2SAT 97
[2024-09-27] MEDS: Tamsulosin HCl 0.4 MG Capsule PO (17:22)
[2024-09-27] MEDS: Donepezil HCl 5 MG Tablet PO (20:11)
[2024-09-27] MEDS: traMADol 50 MG Tablet PO (20:13)
[2024-09-27 21:00] VITALS: PULSE 95
[2024-09-27] MEDS: LORazepam 1 MG Tablet PO (21:24)
[2024-09-28] MEDS: Levothyroxine 100 MCG Tablet 200 MCG PO (05:44)
[2024-09-28] MEDS: Acetaminophen 500 MG Tablet 1000 MG PO ×3 (05:45→22:13)
[2024-09-28 06:25] LABS: Bedside Glucose 215 mg/dL (74-106)
--- NOTE | 2024-09-28 07:40 | PCM.DC.SUM ---
Providers Date of Admission: 09/04/24 Primary Care Physician: Dr. Mihaela Ybarra MD Reason For Visit: AMS, AECHF Diagnosis Discharge Diagnosis (1) Debility: Status: Acute Code(s): R53.81 - Other malaise (2) Intractable back pain: Status: Acute Code(s): M54.9 - Dorsalgia, unspecified (3) Acute respiratory failure with hypoxia: Status: Acute Code(s): J96.01 - Acute respiratory failure with hypoxia (4) Acute on chronic diastolic heart failure with preserved ejection fraction: Status: Resolved Code(s): I50.33 - Acute on chronic diastolic (congestive) heart failure (5) Encephalopathy: Status: Acute Code(s): G93.40 - Encephalopathy, unspecified (6) Chronic respiratory failure with hypoxia: Status: Chronic Code(s): J96.11 - Chronic respiratory failure with hypoxia (7) Diabetes: Status: Acute Code(s): E11.9 - Type 2 diabetes mellitus without complications (8) Essential hypertension: Status: Acute Code(s): I10 - Essential (primary) hypertension (9) Hypothyroidism: Status: Chronic Code(s): E03.9 - Hypothyroidism, unspecified Qualifiers: Hypothyroidism type: unspecified Qualified Code(s): E03.9 - Hypothyroidism, unspecified (10) HLD (hyperlipidemia): Status: Ruled-out Code(s): E78.5 - Hyperlipidemia, unspecified Qualifiers: Hyperlipidemia type: unspecified Qualified Code(s): E78.5 - Hyperlipidemia, unspecified (11) Atrial fibrillation: Status: Acute Code(s): I48.91 - Unspecified atrial fibrillation Qualifiers: Atrial fibrillation type: unspecified chronic Qualified Code(s): I48.20 - Chronic atrial fibrillation, unspecified (12) Aortic stenosis: Status: Acute Code(s): I35.0 - Nonrheumatic aortic (valve) stenosis Plan 83 year old female with below past medical history hospitalized for acute on chronic respiratory failure with hypoxia 2/2 acute on chronic HFpEF, complicated by encephalopathy, intractable low back pain, admitted to TCU with debility, here for rehabilitation, strengthening, prior to discharge home with . Debility - PT/OT. Pain - Tylenol 1000mg q6 prn pain (1-3), Tramadol 50mg q6 prn pain (4-5), Oxycodone 2.5mg q4 prn pain (6-10). Bowel - senna/colace 1 tablet bid, Magnesium citrate 300mL daily prn. Adult immunization - Administer pneumonia vaccine, covid vaccine, flu vaccine as appropriate. DVT prophylaxis - On Eliquis. Atrial fibrillation - Diltiazem 240mg daily, Eliquis 5mg bid. Chronic HFpEF - Fuorsemide 40mg daily. Hypothyroidism - Levothyroxine 200mcg daily. Diabetes Mellitus II - Metformin XR 500mg daily. Urinary retention - straight cath to empty, send UA, C+S, start Tamsulosin 0.4mg daily. Medications at Discharge Home Medications apixaban 5 mg tablet 5 mg PO BID BLOOD THINNER #60 tabs 11/11/23 metformin 500 mg tablet,extended release 24 hr 500 mg PO BREAKFAST DIABETES 11/11/23 furosemide 40 mg tablet 40 mg PO DAILY EDEMA 07/13/24 diltiazem HCl 240 mg capsule,extended release 24 hr 240 mg PO DAILY heart #30 caps 08/09/24 levothyroxine 100 mcg tablet 200 mcg (2 x 100 mcg) PO DAILY@0600 thyroid #0 tabs 09/04/24 acetaminophen 500 mg tablet 1,000 mg (2 x 500 mg) PO Q8 #0 tabs 09/15/24 cholecalciferol (vitamin D3) 25 mcg (1,000 unit) tablet 25 mcg PO DAILY #0 tabs 09/15/24 donepezil 5 mg tablet 5 mg PO QHS #0 tabs 09/15/24 tamsulosin 0.4 mg capsule 0.4 mg PO DAILY@1730 #0 caps 09/15/24 menthol 0.44 %-zinc oxide 20.6 % topical ointment (Calmoseptine) 1 applic topical BID #0 grams 09/28/24 Hospital Course Operations None Procedures None Summary of Care Provided Minutes Spent on Discharge: 35 Hospital Course: 83 year old female with below past medical history hospitalized for acute on chronic respiratory failure with hypoxia 2/2 acute on chronic HFpEF, complicated by encephalopathy, intractable low back pain, admitted to TCU with debility, here for rehabilitation, strengthening, prior to discharge home with . Discharge to [facility] 09/30/2024, intermediate, part B therapies. Physical Exam Const alert General Appearance: cooperative HEENT normocephalic Eyes PERRL and EOMs intact bilaterally Neck supple, no JVD and no carotid bruits Resp normal respiratory effort, normal air movement and clear to auscultation bilaterally Cardio regular rate and regular rhythm GI normal to inspection, nondistended, normoactive bowel sounds, non-tender and non-distended Extremity normal capillary refill General Extremity: Negative for edema Skin no rashes or lesions noted General Skin Exam: no breakdown Psych affect normal Appearance: appropriate Weight / BMI Weight Weight: 128.82 kg Body Mass Index (BMI) 47.3 ABG / Lab / Microbiology Data 09/24/24 05:50 09/24/24 05:50 Laboratory: Laboratory Results - last 24 hr 09/28/24 06:06: POC Glucose 215 H Microbiology: Microbiology 09/20/24 09:28 Nasal Secretion SARS-CoV-2 Antigen (Rapid) - Final 09/15/24 15:30 Urine Catheter - Mcduffie Urine Culture - Final Escherichia coli 09/13/24 09:46 Nasal Secretion SARS-CoV-2 Antigen (Rapid) - Final 09/05/24 15:34 Urine Catheter - Catheter Urine Culture - Final Culture exhibits no growth. D/C Instructions Discharge Diet: No restrictions Discharge Activity: Return to Normal Activity, May Shower and Use Walker Weight Bearing Status: Weight bearing as tolerated Call your doctor if you observe: Fever of 101 or Higher, Inability to urinate, Inability to have a bowel movement, Shortness of breath, Dizziness, Fainting spells, Swelling in the ankles, Chest pain and Uncontrolled pain DC O2, CPAP, BIPAP Needs Home O2 Discharge instructions: No Additional Instructions: Discharge to [facility] 09/30/2024, intermediate, part B therapies. Please Follow Up With: Jose L Cha MD When: As scheduled. Meaningful Use Info Meaningful Use Meaningful Use Diagnoses (Choose all that apply): None applicable Ischemic Stroke Statin Dosing Therapy Reference: STATIN DOSE THERAPY REFERENCE: * Patients > 75 years receive moderate or high dose statin therapy. * Patients 75 years or YOUNGER should receive HIGH intensity statin dose unless contraindicated. You will be required to document reason for non-treatment if statin daily dose does not meet guidelines. HIGH DOSE STATIN THERAPY DAILY Atorvastatin > than or = to 40 mg Rosuvastatin > than or = to 20 mg Amlodipine + Atorvastatin > than or = to 2.5/40 mg Ezetimibe + Simvastatin 10/80 mg Simvastatin 80mg Discharge Plan Admission Admit Date/Time: 09/04/24 18:58 Primary Reason for Your Visit: Debility. Attending Provider: Enzo Michele Chi Primary Care Provider: Mihaela Ybarra Instructions Additional Instructions / Restrictions: Discharge to [facility] 09/30/2024, intermediate, part B therapies. Discharge Orders/Prescriptions Prescriptions: New donepezil 5 mg Tablet 5 mg PO QHS Qty: 0 0RF acetaminophen 500 mg Tablet 1,000 mg PO Q8 Qty: 0 0RF tamsulosin 0.4 mg Capsule 0.4 mg PO DAILY@1730 Qty: 0 0RF cholecalciferol (vitamin D3) 25 mcg (1,000 unit) Tablet 25 mcg PO DAILY Qty: 0 0RF menthol-zinc oxide [Calmoseptine] 0.44-20.6 % Ointment 1 applic topical BID Qty: 0 0RF Protocol: *Topical Application Instructions APPLICATION INSTRUCTIONS: ABELARDO BUTTUCKS AND COCCXY Continued metformin 500 mg tablet extended release 24 hr 500 mg PO BREAKFAST apixaban 5 mg tablet 5 mg PO BID Qty: 60 11RF furosemide 40 mg tablet 40 mg PO DAILY diltiazem HCl 240 mg Capsule,Extended Release 24hr 240 mg PO DAILY Qty: 30 0RF levothyroxine 100 mcg Tablet 200 mcg PO DAILY@0600 Qty: 0 0RF Discontinued ergocalciferol (vitamin D2) 1,250 mcg (50,000 unit) capsule 1,250 mcg PO BID Referrals / Follow Up: Mihaela Ybarra MD [Primary Care Provider] - Disposition Disposition (needs filled in before D/C Order can be placed): NonSkilled NH/Intermed Care
--- NOTE | 2024-09-28 07:45 | TREXTCAR_ITS ---
Diet Diet Order/Speech Therapy: 09/04/24 19:02 Diet: Cardiac: Calorie-Controlled Food consistency:: Regular Liquid Consistency:: Regular/Thin Dietary Modifications:: Sodium Restricted Consistent Carbohydrate Fluid restriction:: 1500 mL How many daily calories?: 1800 calorie Routine Orders/Code Status Code Status: DNRCC-A (No intubation.) DC O2, CPAP, BIPAP needs Home O2 Discharge instructions: No Wound(s) B/L breast: Wound Type: MASD Dressing Change: Antifungal cream & innerdry applied per order Therapies Weight Bearing: Weight bearing as tolerated Extremity Affected:: Bilateral Lower Physical Therapy: Eval and Treat Occupational Therapy: Eval and Treat Speech Therapy: Eval and Treat Problem/Diagnosis (1) Debility: Status: Acute Code(s): R53.81 - Other malaise (2) Intractable back pain: Status: Acute Code(s): M54.9 - Dorsalgia, unspecified (3) Acute respiratory failure with hypoxia: Status: Acute Code(s): J96.01 - Acute respiratory failure with hypoxia (4) Acute on chronic diastolic heart failure with preserved ejection fraction: Status: Resolved Code(s): I50.33 - Acute on chronic diastolic (congestive) heart failure (5) Encephalopathy: Status: Acute Code(s): G93.40 - Encephalopathy, unspecified (6) Chronic respiratory failure with hypoxia: Status: Chronic Code(s): J96.11 - Chronic respiratory failure with hypoxia (7) Diabetes: Status: Acute Code(s): E11.9 - Type 2 diabetes mellitus without complications (8) Essential hypertension: Status: Acute Code(s): I10 - Essential (primary) hypertension (9) Hypothyroidism: Status: Chronic Code(s): E03.9 - Hypothyroidism, unspecified (10) HLD (hyperlipidemia): Status: Ruled-out Code(s): E78.5 - Hyperlipidemia, unspecified (11) Atrial fibrillation: Status: Acute Code(s): I48.91 - Unspecified atrial fibrillation (12) Aortic stenosis: Status: Acute Code(s): I35.0 - Nonrheumatic aortic (valve) stenosis Plan 83 year old female with below past medical history hospitalized for acute on chronic respiratory failure with hypoxia 2/2 acute on chronic HFpEF, complicated by encephalopathy, intractable low back pain, admitted to TCU with debility, here for rehabilitation, strengthening, prior to discharge home with . * Debility - PT/OT. * Pain - Tylenol 1000mg q6 prn pain (1-3), Tramadol 50mg q6 prn pain (4-5), Oxycodone 2.5mg q4 prn pain (6-10). * Bowel - senna/colace 1 tablet bid, Magnesium citrate 300mL daily prn. * Adult immunization - Administer pneumonia vaccine, covid vaccine, flu vaccine as appropriate. * DVT prophylaxis - On Eliquis. * Atrial fibrillation - Diltiazem 240mg daily, Eliquis 5mg bid. * Chronic HFpEF - Fuorsemide 40mg daily. * Hypothyroidism - Levothyroxine 200mcg daily. * Diabetes Mellitus II - Metformin XR 500mg daily. * Urinary retention - straight cath to empty, send UA, C+S, start Tamsulosin 0.4mg daily. Allergies/Procedures Done in Hospital Allergies gabapentin Allergy (Unknown, Verified 08/31/24 12:10) Unknown meloxicam Adverse Reaction (Unknown, Verified 08/31/24 12:10) Unknown [id number] Reductase Inhibitor Adverse Reaction (Unknown, Verified 08/31/24 12:10) Unknown Procedures: None Type of Care/Length of Stay Estimated LOS: More Than 30 Days Type of Care Needed: Intermediate Rehab Potential: Fair Prognosis: Fair Additional Orders/Day of Discharge Additional Orders: part B therapies Day of Discharge: 09/30/24 Dietary and Speech Recommendations Dietitian Recommendations/Changes: Continue 1800 raj Consistent CHO/ Cardiac Sodium restricted diet w/ FR as ordered Follow Up Care Please Follow Up With: Jose L Cha MD Discharge Plan Admission Admit Date/Time: 09/04/24 18:58 Primary Reason for Your Visit: Debility. Attending Provider: Enzo Michele Chi Primary Care Provider: Mihaela Ybarra Instructions Additional Instructions / Restrictions: Discharge to [facility] 09/30/2024, intermediate, part B therapies. Discharge Orders/Prescriptions Prescriptions: New donepezil 5 mg Tablet 5 mg PO QHS Qty: 0 0RF acetaminophen 500 mg Tablet 1,000 mg PO Q8 Qty: 0 0RF tamsulosin 0.4 mg Capsule 0.4 mg PO DAILY@1730 Qty: 0 0RF cholecalciferol (vitamin D3) 25 mcg (1,000 unit) Tablet 25 mcg PO DAILY Qty: 0 0RF menthol-zinc oxide [Calmoseptine] 0.44-20.6 % Ointment 1 applic topical BID Qty: 0 0RF Protocol: *Topical Application Instructions APPLICATION INSTRUCTIONS: ABELARDO BUTTUCKS AND COCCXY Continued metformin 500 mg tablet extended release 24 hr 500 mg PO BREAKFAST apixaban 5 mg tablet 5 mg PO BID Qty: 60 11RF furosemide 40 mg tablet 40 mg PO DAILY diltiazem HCl 240 mg Capsule,Extended Release 24hr 240 mg PO DAILY Qty: 30 0RF levothyroxine 100 mcg Tablet 200 mcg PO DAILY@0600 Qty: 0 0RF Discontinued ergocalciferol (vitamin D2) 1,250 mcg (50,000 unit) capsule 1,250 mcg PO BID Referrals / Follow Up: Mihaela Ybarra MD [Primary Care Provider] - Disposition Disposition (needs filled in before D/C Order can be placed): NonSkilled NH/Intermed Care (9) Hypothyroidism Qualifiers: Hypothyroidism type: unspecified Qualified Code(s): E03.9 - Hypothyroidism, unspecified (10) HLD (hyperlipidemia) Qualifiers: Hyperlipidemia type: unspecified Qualified Code(s): E78.5 - Hyperlipidemia, unspecified (11) Atrial fibrillation Qualifiers: Atrial fibrillation type: unspecified chronic Qualified Code(s): I48.20 - Chronic atrial fibrillation, unspecified
[2024-09-28 08:17] VITALS: O2SAT 97
[2024-09-28 08:40] VITALS: BP 111/63; PULSE 83; RESP 18; TEMP 36.2; O2SAT 90
[2024-09-28] MEDS: Menthol/Lanolin/Calamine/Znox 113 GM Tube 1 APPLIC TOPICAL ×2 (08:45→22:19)
[2024-09-28] MEDS: metFORMIN (XR) 500 MG Tablet PO (08:45)
[2024-09-28] MEDS: Furosemide 40 MG Tablet PO (08:46)
[2024-09-28] MEDS: dilTIAZem CD 240 MG Capsule PO (08:46)
[2024-09-28] MEDS: APIXABAN 5 MG TABLET PO ×2 (08:46→22:14)
[2024-09-28] MEDS: Nystatin Powder 15gm Bottle 1 APPLIC TOPICAL ×2 (08:47→22:20)
[2024-09-28] MEDS: Clotrimazole 1 APPLIC Tube TOPICAL ×2 (08:47→22:12)
[2024-09-28] MEDS: Senna/Docusate Sodium 1 Tablet PO ×2 (08:48→22:15)
[2024-09-28] MEDS: Cholecalciferol (VIT D3) 25 MCG TABLET (1,000 UNITS) PO (08:48)
[2024-09-28] MEDS: LORazepam 1 MG Tablet PO ×2 (14:10→22:15)
--- NOTE | 2024-09-28 15:08 | CASEMGMT ---
Social Work SW completed BIMS () and PHQ-2 () for MDS assessment. Monica Carrillo, [employer] INSURANCE RISK MANAGER
[2024-09-28] MEDS: Tamsulosin HCl 0.4 MG Capsule PO (16:43)
[2024-09-28] MEDS: Donepezil HCl 5 MG Tablet PO (22:14)
[2024-09-29 06:23] LABS: Bedside Glucose 154 mg/dL (74-106)
[2024-09-29] MEDS: Acetaminophen 500 MG Tablet 1000 MG PO ×3 (06:27→21:49)
[2024-09-29] MEDS: Levothyroxine 100 MCG Tablet 200 MCG PO (06:27)
[2024-09-29 08:20] VITALS: O2SAT 93
[2024-09-29] MEDS: metFORMIN (XR) 500 MG Tablet PO (10:11)
[2024-09-29] MEDS: Menthol/Lanolin/Calamine/Znox 113 GM Tube 1 APPLIC TOPICAL ×2 (10:11→22:00)
[2024-09-29] MEDS: Senna/Docusate Sodium 1 Tablet PO ×2 (10:12→21:49)
[2024-09-29] MEDS: Nystatin Powder 15gm Bottle 1 APPLIC TOPICAL ×2 (10:12→21:52)
[2024-09-29] MEDS: Furosemide 40 MG Tablet PO (10:12)
[2024-09-29] MEDS: Cholecalciferol (VIT D3) 25 MCG TABLET (1,000 UNITS) PO (10:12)
[2024-09-29] MEDS: APIXABAN 5 MG TABLET PO ×2 (10:12→21:49)
[2024-09-29] MEDS: dilTIAZem CD 240 MG Capsule PO (10:12)
[2024-09-29] MEDS: Clotrimazole 1 APPLIC Tube TOPICAL ×2 (10:14→21:58)
[2024-09-29 11:42] VITALS: BMI 47.6
[2024-09-29 15:41] VITALS: BP 105/65; PULSE 91; RESP 18; TEMP 36; O2SAT 97
[2024-09-29] MEDS: Tamsulosin HCl 0.4 MG Capsule PO (16:48)
[2024-09-29] MEDS: Donepezil HCl 5 MG Tablet PO (21:49)
[2024-09-30] MEDS: Levothyroxine 100 MCG Tablet 200 MCG PO (04:48)
[2024-09-30] MEDS: Acetaminophen 500 MG Tablet 1000 MG PO (04:48)
[2024-09-30 06:43] LABS: Bedside Glucose 167 mg/dL (74-106)
[2024-09-30] MEDS: APIXABAN 5 MG TABLET PO (08:36)
[2024-09-30] MEDS: Cholecalciferol (VIT D3) 25 MCG TABLET (1,000 UNITS) PO (08:36)
[2024-09-30] MEDS: metFORMIN (XR) 500 MG Tablet PO (08:36)
[2024-09-30] MEDS: Furosemide 40 MG Tablet PO (08:36)
[2024-09-30] MEDS: dilTIAZem CD 240 MG Capsule PO (08:36)
[2024-09-30] MEDS: Clotrimazole 1 APPLIC Tube TOPICAL (08:37)
[2024-09-30] MEDS: Nystatin Powder 15gm Bottle 1 APPLIC TOPICAL (08:38)
[2024-09-30] MEDS: Menthol/Lanolin/Calamine/Znox 113 GM Tube 1 APPLIC TOPICAL (08:40)
[2024-09-30 11:58] VITALS: BP 121/56; PULSE 80; RESP 18; TEMP 36.3; O2SAT 90
== END 2024-09-30 11:00 | DRG 291 ==
PROVIDERS: Admitting Provider Family Medicine Geriatric Medicine; PCP Internal Medicine; Visit Provider Family Medicine Geriatric Medicine
DX: I11.0 Hypertensive heart disease with heart failure (principal); I50.33 Acute on chronic diastolic (congestive) heart failure; J96.11 Chronic respiratory failure with hypoxia; I48.20 Chronic atrial fibrillation, unspecified; N39.0 Urinary tract infection, site not specified; B96.20 Unspecified Escherichia coli [E. coli] as the cause of diseases classified elsewhere; B35.4 Tinea corporis; E11.9 Type 2 diabetes mellitus without complications; Z79.01 Long term (current) use of anticoagulants; Z99.81 Dependence on supplemental oxygen; G30.9 Alzheimer's disease, unspecified; E03.9 Hypothyroidism, unspecified; E55.9 Vitamin D deficiency, unspecified; E78.5 Hyperlipidemia, unspecified; F02.80 Dementia in other diseases classified elsewhere, unspecified severity, without behavioral disturbance, psychotic disturbance, mood disturbance, and anxiety; Z79.890 Hormone replacement therapy; Z79.84 Long term (current) use of oral hypoglycemic drugs; Z87.891 Personal history of nicotine dependence; R33.9 Retention of urine, unspecified; Z79.899 Other long term (current) drug therapy
CPT/HCPCS: 36415; 73560; 74018; 80048; 81001; 82306; 82962; 85014; 85018; 85025; 87077; 87086; 87088; 87186; 87811; 92523; 92526; 92610; 97110; 97129; 97130; 97162; 97166; 97530; 97535; 97802; A4216

== ENCOUNTER 2025-01-03 17:32 | Inpatient (IN) | payer MEDICARE, OTHER, SELFPAY ==
[2025-01-03 17:34] VITALS: BP 105/87; PULSE 101; RESP 18; TEMP 35.9; O2SAT 98; BMI 50.9
--- NOTE | 2025-01-03 18:08 | RAD_ITS ---
EXAM: Right foot CLINICAL HISTORY: Foot pain COMPARISON: None TECHNIQUE: Three views FINDINGS: No acute fracture or dislocation. Moderate plantar calcaneal enthesophyte. Tiny posterior calcaneal enthesophyte. Bipartite tibial sesamoid bone. Mild midfoot arthrosis. RAD/Foot min 3 Views IMPRESSION: No acute fracture or dislocation. Mild midfoot arthrosis. Reading Location: [id number]
--- NOTE | 2025-01-03 18:08 | RAD_ITS ---
PROCEDURE: KNEE 4 OR MORE VIEWS 01/03/2025 REASON FOR EXAM: PAIN TECHNIQUE: 4 view(s) of the left knee COMPARISON: None FINDINGS: Bones: No acute fracture or dislocation. Joints: Moderate joint space narrowing and osteophyte formation consistent with moderate arthrosis. Effusion: None Soft tissues: Unremarkable. Other: RAD/Knee 4 or More Views IMPRESSION: Moderate arthrosis. Reading Location: [id number]
--- NOTE | 2025-01-03 18:08 | EKG12_ITS ---
Test Reason : Blood Pressure : */* mmHG Vent. Rate : 104 BPM Atrial Rate : * BPM P-R Int : * ms QRS Dur : 80 ms QT Int : 332 ms P-R-T Axes : * 101 43 degrees QTcB Int : 436 ms Atrial fibrillation with rapid ventricular response Rightward axis Low voltage QRS Cannot rule out Anterior infarct , age undetermined Abnormal ECG Confirmed by DALLAS GONZALEZ, JAIMIE ([id number]), purchase request editor DEIRDRE DALY ([id number]) on 01/04/2025 8:07:59 AM Referred By: Confirmed By: JAIMIE HAYNES MD
--- NOTE | 2025-01-03 18:25 | CT_ITS ---
EXAM: BRAIN/HEAD WITHOUT CONTRAST CLINICAL HISTORY: 84 y/o F with FALL, dizziness, numbness. COMPARISON: None. TECHNIQUE: Routine CT imaging of the head without IV contrast. Additional multiplanar reformats were obtained. Dose reduction techniques were used including intermediate exposure control (AEC),iterative reconstruction technique, and/or mA and/or KV dose adjustments based on patient's size. FINDINGS: Mild generalized cerebral volume loss with concordant prominence of the ventricles and subarachnoid spaces. Mild patchy supratentorial white matter hypodensities. The serrano-white matter interfaces are otherwise maintained. No acute intracranial hemorrhage or herniation. Prior ocular lens replacements. The visualized paranasal sinuses and mastoids are unremarkable. No acute calvarial fracture or scalp hematoma. CT/Brain/Head without Contrast IMPRESSION: 1. No acute intracranial finding. 2. Findings of chronic microvascular ischemic changes and age-related changes. Reading Location: [id number]
--- NOTE | 2025-01-03 18:25 | EX.ED.DYSGE1 ---
HPI <KWABENA Sawyer - Last Filed: 01/03/25 21:59> History of Present Illness Chief Complaint: General Illness Narrative Narrative: 84-year-old female with PMH of HTN, HLD, DM2, A-fib, COPD on 5 L at baseline presents with 1 month of intermittent dizzy spells. She states she will get a brief lasting1 to 2 minutes where she feels dizzy. She does not have a vertigo sensation or necessarily feel lightheaded. It can happen every other day or daily. Today they seemed more severe prompting her to come in. She has no associated headache or visual changes or nausea or vomiting. No chest pain or increased shortness of breath from her baseline with COPD. She fell out of bed 2 days ago and injured her left knee and right foot. She is ambulatory. PFSH <KWABENA Sawyer - Last Filed: 01/03/25 21:59> PFSH Medical History Diabetes Former smoker On home oxygen therapy Hypertension COVID-19 Atrial fibrillation Nonrheumatic aortic (valve) stenosis Nonrheumatic mitral valve disorder Essential hypertension HTN (hypertension) GI bleed Home Medications ?Medication ?Instructions ?Recorded ?Last Taken ?Type apixaban 5 mg tablet 5 mg PO BID BLOOD THINNER #60 tabs 11/11/23 09/04/24 Rx metformin 500 mg tablet,extended 500 mg PO BREAKFAST DIABETES 11/11/23 07/12/24 History release 24 hr furosemide 40 mg tablet 40 mg PO DAILY EDEMA 07/13/24 07/12/24 History levothyroxine 150 mcg tablet 150 mcg PO DAILY disorder of 01/03/25 Unknown History thyroid gland Allergy/AdvReac Type Severity Reaction Status Date / Time gabapentin Allergy Unknown Unknown Verified 01/03/25 17:34 meloxicam AdvReac Unknown Unknown Verified 01/03/25 17:34 Ppyaxld-ZCM-[id number] Reductase AdvReac Unknown Unknown Verified 01/03/25 17:34 Inhibitor Family History Mother Cancer Colon CVA (cerebral vascular accident) Hypertension Father Myocardial infarction Surgical History History of umbilical hernia repair Hx of right knee surgery History of tonsillectomy History of bilateral cataract extraction History of tubal ligation History of cholecystectomy Social History household members: spouse Smoking Status: Former smoker alcohol intake: never substance use type: does not use caffeine: Yes Type: carbonated beverages Number of servings: 1 ROS <KWABENA Sawyer - Last Filed: 01/03/25 21:59> ROS ED ROS Narrative Constitutional: Negative for fever, chills, malaise. CVS: Negative for chest pain. Respiratory: Negative for shortness of breath. GI: Negative for abdominal pain, nausea, vomiting, diarrhea. EXAM <KWABENA Sawyer - Last Filed: 01/03/25 21:59> Physical Exam Narrative Exam Narrative: CONST: Patient sitting in no acute distress. EYES: Normal inspection. PERRL, EOMI, no nystagmus. NECK: Normal inspection. RESP: No respiratory distress, on 5 L NC, mild expiratory wheezing throughout. CVS: Regular rate and rhythm, no murmur, no gallop. ABD: Soft and nontender, no guarding or rebound, nondistended. SKIN: Color normal, no rash, warm, dry, intact. EXTREMITIES: Normal appearance, no pedal edema. NEURO: Alert but has a blank look and difficulty answering historical questions. Face symmetric. Moving all extremities. PSYCH: Normal affect. Const Vital Signs: 01/03/25 17:34 01/03/25 17:41 01/03/25 19:47 Temperature 96.7 F L Temperature Source Temporal Pulse Rate 101 H 101 H Respiratory Rate 18 24 H Respiratory Effort Normal Respiratory Pattern Normal Blood Pressure 105/87 H 121/79 H Blood Pressure Mean 93 93 Pulse Ox 98 94 Oxygen Delivery Method Room Air Nasal Cannula Oxygen Flow Rate (L/min) 01/03/25 21:00 01/03/25 21:19 01/03/25 22:19 Temperature 98.2 F 98.2 F 97.8 F Temperature Source Oral Oral Pulse Rate 97 94 92 Respiratory Rate 19 H 22 H 21 H Respiratory Effort Respiratory Pattern Blood Pressure 105/68 110/78 105/77 Blood Pressure Mean 80 88 86 Pulse Ox 96 100 96 Oxygen Delivery Method Nasal Cannula Nasal Cannula Oxygen Flow Rate (L/min) 5 5 <Dr. Todd Hernandez DO - Last Filed: 01/04/25 00:14> Physical Exam Const Vital Signs: 01/03/25 17:34 01/03/25 17:41 01/03/25 19:47 Temperature 96.7 F L Temperature Source Temporal Pulse Rate 101 H 101 H Respiratory Rate 18 24 H Respiratory Effort Normal Respiratory Pattern Normal Blood Pressure 105/87 H 121/79 H Blood Pressure Mean 93 93 Pulse Ox 98 94 Oxygen Delivery Method Room Air Nasal Cannula Oxygen Flow Rate (L/min) 01/03/25 21:00 01/03/25 21:19 01/03/25 22:19 Temperature 98.2 F 98.2 F 97.8 F Temperature Source Oral Oral Pulse Rate 97 94 92 Respiratory Rate 19 H 22 H 21 H Respiratory Effort Respiratory Pattern Blood Pressure 105/68 110/78 105/77 Blood Pressure Mean 80 88 86 Pulse Ox 96 100 96 Oxygen Delivery Method Nasal Cannula Nasal Cannula Oxygen Flow Rate (L/min) 5 5 MDM <KWABENA Sawyer - Last Filed: 01/03/25 21:59> [facility] MDM Narrative Medical decision making narrative: History gathered from: Patient and 84-year-old female presents with nonspecific symptoms including dizziness/lightheadedness. Over the last few days she has felt weaker and has malaise. She is a poor historian. She appears well and nontoxic. BP 105/87, HR 101, 98% on her chronic 5 L O2, and otherwise stable vital signs. She has a nonfocal neurological exam. There is bruising over her left knee and right foot from a prior fall. There is no signs of head injury but since she is on Eliquis and has vague symptoms I elected to do a CT scan of her head. CT brain and x-rays of affected extremities are negative. Labs show normal WBC of 7.0 and chronic anemia at 11.6 which is higher than previous. Electrolytes are unremarkable. Glucose 151. Anion gap normal. Urinalysis is consistent with UTI. It was sent for culture and she was given IV fluids and Rocephin. Patient reports weakness and is mildly confused/very poor historian so I think she requires admission. I discussed the case with hospitalist for admission. Lab Data Attestation: I reviewed the patient's lab results. Labs: Laboratory Results - last 24 hr 01/03/25 01/03/25 18:30 20:05 WBC 7.0 RBC 4.02 L Hgb 11.6 L Hct 41.8 MCV 104.0 H MCH 28.9 MCHC 27.8 L RDW Std Deviation 55.2 H RDW Coeff of Pattie 14.6 Plt Count 158 MPV 10.7 Immature Gran % (Auto) 0.900 Neut % (Auto) 73.5 H Lymph % (Auto) 13.6 L Kleberg % (Auto) 10.7 H Eos % (Auto) 0.7 Baso % (Auto) 0.6 Absolute Neuts (auto) 5.2 Absolute Lymphs (auto) 0.95 Nucleated RBC % 0.3 Sodium 142 Potassium 4.8 Chloride 99 Carbon Dioxide 33.8 H Anion Gap 9 BUN 24 H Creatinine 1.16 Estim Creat Clear Calc 51.16 Est GFR (MDRD) Non-Af 46 L BUN/Creatinine Ratio 20.9 H Glucose 151 H Hemoglobin A1c 7.2 Calcium 9.3 Magnesium 1.9 Urine Color Nhi Urine Clarity Sl. Cloudy Urine pH 6.0 Ur Specific [place] 1.025 Urine Protein 100 H Urine Glucose (UA) Normal Urine Ketones 5 H Urine Occult Blood 10 H Urine Nitrite Negative Urine Bilirubin 1 H Urine Urobilinogen 4 H Ur Leukocyte Esterase 25 H Urine RBC 0-5 SEEN Urine WBC 5-10 SEEN Ur Squamous Epith Cells 0 SEEN Urine Bacteria 4+ Urine Mucus 0 SEEN Ethyl Alcohol < 10.1 Radiography Diagnostic Testing: Clinical Impression(s) from Imaging Studies Foot X-Ray 01/03/25 18:08 IMPRESSION: No acute fracture or dislocation. Mild midfoot arthrosis. Reading Location: [facility] Knee X-Ray 01/03/25 18:08 IMPRESSION: Moderate arthrosis. Reading Location: [facility] Brain CT 01/03/25 18:25 IMPRESSION: 1. No acute intracranial finding. 2. Findings of chronic microvascular ischemic changes and age-related changes. Reading Location: [facility] Chest X-Ray 01/03/25 19:30 IMPRESSION: Mild cardiomegaly and trace left pleural effusion. Reading Location: [facility] ED attending interpretation of the left knee shows no fracture or dislocation. ED attending interpretation of right foot shows no fracture or dislocation. ED attending interpretation 1 view chest x-ray shows mild cardiomegaly, no acute infiltrate. EKG Initial EKG: Attestation: I personally reviewed and interpreted this EKG as follows: Interpretation: Atrial Fibrillation Comments: A-fib RVR at 104 bpm No acute ischemic changes Prior EKG tracings: available for review Prior: Unchanged <Dr. Todd Hernandez, DO - Last Filed: 01/04/25 00:14> MDM MDM Narrative Medical decision making narrative: History gathered from: Patient and 84-year-old female presents with nonspecific symptoms including dizziness/lightheadedness. Over the last few days she has felt weaker and has malaise. She is a poor historian. She appears well and nontoxic. BP 105/87, HR 101, 98% on her chronic 5 L O2, and otherwise stable vital signs. She has a nonfocal neurological exam. There is bruising over her left knee and right foot from a prior fall. There is no signs of head injury but since she is on Eliquis and has vague symptoms I elected to do a CT scan of her head. CT brain and x-rays of affected extremities are negative. Labs show normal WBC of 7.0 and chronic anemia at 11.6 which is higher than previous. Electrolytes are unremarkable. Glucose 151. Anion gap normal. Urinalysis is consistent with UTI. It was sent for culture and she was given IV fluids and Rocephin. Patient reports weakness and is mildly confused/very poor historian so I think she requires admission. I discussed the case with hospitalist for admission. ED attending note: I evaluated the patient in conjunction with the [facility]. I agree with his/her statements and above findings. I have personally performed a face to face assessment of the patient and have reviewed the [facility] Note. I performed a substantive portion of the visit including all aspects of the following. I personally saw the patient performed chart review, physical exam, reviewed labs, imaging (if obtained), and formulated a treatment and management plan. This note was generated with [employer] software. It may contain incorrect words, spelling, and punctuation that were not noted in review of the chart prior to signing. Lab Data Labs: Laboratory Results - last 24 hr 01/03/25 01/03/25 18:30 20:05 WBC 7.0 RBC 4.02 L Hgb 11.6 L Hct 41.8 MCV 104.0 H MCH 28.9 MCHC 27.8 L RDW Std Deviation 55.2 H RDW Coeff of Pattie 14.6 Plt Count 158 MPV 10.7 Immature Gran % (Auto) 0.900 Neut % (Auto) 73.5 H Lymph % (Auto) 13.6 L Kleberg % (Auto) 10.7 H Eos % (Auto) 0.7 Baso % (Auto) 0.6 Absolute Neuts (auto) 5.2 Absolute Lymphs (auto) 0.95 Nucleated RBC % 0.3 Sodium 142 Potassium 4.8 Chloride 99 Carbon Dioxide 33.8 H Anion Gap 9 BUN 24 H Creatinine 1.16 Estim Creat Clear Calc 51.16 Est GFR (MDRD) Non-Af 46 L BUN/Creatinine Ratio 20.9 H Glucose 151 H Hemoglobin A1c 7.2 Calcium 9.3 Magnesium 1.9 Urine Color Nhi Urine Clarity Sl. Cloudy Urine pH 6.0 Ur Specific [place] 1.025 Urine Protein 100 H Urine Glucose (UA) Normal Urine Ketones 5 H Urine Occult Blood 10 H Urine Nitrite Negative Urine Bilirubin 1 H Urine Urobilinogen 4 H Ur Leukocyte Esterase 25 H Urine RBC 0-5 SEEN Urine WBC 5-10 SEEN Ur Squamous Epith Cells 0 SEEN Urine Bacteria 4+ Urine Mucus 0 SEEN Ethyl Alcohol < 10.1 Radiography Diagnostic Testing: Clinical Impression(s) from Imaging Studies Foot X-Ray 01/03/25 18:08 IMPRESSION: No acute fracture or dislocation. Mild midfoot arthrosis. Reading Location: [facility] Knee X-Ray 01/03/25 18:08 IMPRESSION: Moderate arthrosis. Reading Location: [facility] Brain CT 01/03/25 18:25 IMPRESSION: 1. No acute intracranial finding. 2. Findings of chronic microvascular ischemic changes and age-related changes. Reading Location: [facility] Chest X-Ray 01/03/25 19:30 IMPRESSION: Mild cardiomegaly and trace left pleural effusion. Reading Location: [facility] Discharge Plan Dx/Rx/DC Orders Clinical Impression: Acute UTI, Fall, Contusion of knee, left, Contusion of foot, right Disposition Disposition: Acute Care Hospital [facility] Discharge Date/Time: 01/03/25 22:53
[2025-01-03 18:38] LABS: Absolute Lymphocyte Count 0.95 X10^3/uL (0.83-4.51); Absolute Neutrophil Count 5.2 X10^3/uL (2.0-7.7); Basophil# 0.04 X10^3/uL; Basophil% 0.6 % (0-1); Eosinophil# 0.05 X10^3/uL; Eosinophils% 0.7 % (0-5); Hematocrit 41.8 % (37-47); Hemoglobin 11.6 g/dL (12.0-15.0); Lymphocyte # 0.95 X10^3/ul (0.83-4.51); Lymphocyte % 13.6 % (19-41); Mean Corp Hgb Conc 27.8 g/dL (32-36); Mean Corpuscular Hgb 28.9 pg (27.0-32.0); Mean Platelet Vol. 10.7 fl (6.2-12.0); Monocyte# 0.75 X10^3/uL; Monocyte% 10.7 % (0-10); NRBC Flagged by Analyzer 0.3 % (0-5); Neutrophil # 5.16 X10^3/uL (2.7-7.7); Neutrophil % 73.5 % (47-70); Platelet Count 158 K/mm3 (150-450); RBC Distribution Width CV 14.6 % (11.6-14.6); RBC Distribution Width SD 55.2 fl (35.1-43.9); Red Blood Count 4.02 M/mm3 (4.2-5.4)
[2025-01-03 19:03] LABS: Anion Gap 9 (5-15); BUN 24 mg/dL (4-19); BUN/Creat Ratio 20.9 RATIO (10-20); Calcium,Total 9.3 mg/dL (7.6-11.0); Carbon Dioxide 33.8 mmol/L (21.0-32.0); Chloride 99 mmol/L (98-108); Creatinine, Serum 1.16 mg/dL (0.70-1.20); EST Glomerular Filtration Rate 46 (>60); Estimated Creatinine Clearance 51.16 ml/min (50-250); Glucose 151 mg/dL (70-99); Potassium 4.8 mmol/L (3.3-5.1); Sodium Level 142 mmol/L (133-145)
--- NOTE | 2025-01-03 19:30 | RAD_ITS ---
PROCEDURE: CHEST 1 VIEW (PORTABLE) 01/03/2025 REASON FOR EXAM: WEAKNESS TECHNIQUE: Frontal view of the chest. COMPARISON: None. FINDINGS: Hardware: None. Heart: Heart size is mildly enlarged. Lungs: Low lung volumes. Trace left pleural effusion. No focal consolidation or pneumothorax. Bones: Degenerative changes are identified within the thoracic spine. RAD/Chest 1 View (Portable) IMPRESSION: Mild cardiomegaly and trace left pleural effusion. Reading Location: [id number]
[2025-01-03 19:47] VITALS: BP 121/79; PULSE 101; RESP 24; O2SAT 94
[2025-01-03 20:19] LABS: Mucous, Urine 0 SEEN /hpf (<or=2+); Squamous Epithelial Cells - UA 0 SEEN /hpf (5-10)
[2025-01-03 20:22] LABS: Color, Urine Amber (Yellow); Glucose, Dipstick Normal (Normal); Ketone-Dipstick 5 mg/dl (Negative); Leukocyte Esterase-Dipstick 25 /ul (Negative); Nitrite-Dipstick Negative (Negative); Occult Blood-Urine 10 /ul (Negative); Protein-Dipstick 100 mg/dl (Negative); Specific Gravity, Urine 1.025 (1.002-1.030); Urine Clarity Sl. Cloudy (Clear); Urine Urobilinogen 4 mg/dl (Normal)
[2025-01-03 20:23] LABS: Urine Bilirubin Dipstick 1 mg/dL (Negative)
[2025-01-03 20:44] LABS: Bacteria 4+ /hpf (None Seen); Red Blood Cells-Urine 0-5 SEEN /hpf (0-5); White Blood Cells 5-10 SEEN /hpf (0-5)
[2025-01-03 21:00] VITALS: BP 105/68; PULSE 97; RESP 19; TEMP 36.8; O2SAT 96
[2025-01-03 21:19] VITALS: BP 110/78; PULSE 94; RESP 22; TEMP 36.8; O2SAT 100
[2025-01-03] MEDS: Ceftriaxone 1 GM/50 ML BAG IV (21:21)
--- NOTE | 2025-01-03 21:23 | ED.RN ---
Pt declines changing into hospital gown.
--- NOTE | 2025-01-03 22:02 | PCM.HP.STD ---
[facility] - General General Date of Admission: 01/03/25 Date of Service: 01/03/25 Chief Complaint: General Illness with intermittent Dizzy Spells. HPI Narrative Eh GILLIAM, is a 84 F with a past medical history of essential hypertension; on furosemide, history of hyperlipidemia; with intolerance to statins, hypothyroidism; on levothyroxine, super-morbid obesity; with BMI of 51 this admission, DM-2; of unknown control on metformin, history of atrial fibrillation; on apixaban, history of coonjdof-ud-bocnnr aortic stenosis (2021), history of nonrheumatic mitral valve disorder, history of GI bleed, history of anemia, history of umbilical hernia; s/p repair, history of cholecystectomy, history of COVID-19, OA; s/p Right knee surgery and history of tobacco abuse; with subsequent COPD on prn 5L NC at home who presents to [facility] ER complaining of general illness with intermittent dizzy spells. Mrs. Gilliam reports her symptoms began approximately 1 month prior to admission with brief dizzy spells lasting ~1-2 minutes before resolving spontaneously. She denies associated sensation of vertigo or feeling lightheaded but she was noted to have mild confusion. She states her symptoms can happen daily or every other day but today they seem more severe so she decided to come in for further evaluation and treatment. She does admit to falling out of her bed and injuring her Left knee and Right foot 2 days ago but she is still able to ambulate. She denies associated fever, chills, nausea, vomiting, abdominal pain, chest pain, shortness of breath, headache, visual changes or rash but the ER staff was concerned about patient and her having little understanding of her condition and requesting case management consultation. In the ER she was noted to have a urinalysis positive for Acute Cystitis; without hematuria complicated by clinical evidence of mild Metabolic Encephalopathy with intermittent dizziness and contusions of the Right foot and Left knee after recent fall and she was then admitted to the general medical floor for ongoing care for a stay that is expected to extend beyond 2 midnights. [facility] Medical History Diabetes Former smoker On home oxygen therapy Hypertension COVID-19 Atrial fibrillation Nonrheumatic aortic (valve) stenosis Nonrheumatic mitral valve disorder Essential hypertension HTN (hypertension) GI bleed Home Medications ?Medication ?Instructions ?Recorded ?Last Taken ?Type apixaban 5 mg tablet 5 mg PO BID BLOOD THINNER #60 tabs 11/11/23 09/04/24 Rx metformin 500 mg tablet,extended 500 mg PO BREAKFAST DIABETES 11/11/23 07/12/24 History release 24 hr furosemide 40 mg tablet 40 mg PO DAILY EDEMA 07/13/24 07/12/24 History levothyroxine 150 mcg tablet 150 mcg PO DAILY disorder of 01/03/25 Unknown History thyroid gland Allergy/AdvReac Type Severity Reaction Status Date / Time gabapentin Allergy Unknown Unknown Verified 01/03/25 17:34 meloxicam AdvReac Unknown Unknown Verified 01/03/25 17:34 Lcoppqb-BLK-UzC Reductase AdvReac Unknown Unknown Verified 01/03/25 17:34 Inhibitor Family History Mother Cancer Colon CVA (cerebral vascular accident) Hypertension Father Myocardial infarction Surgical History History of umbilical hernia repair Hx of right knee surgery History of tonsillectomy History of bilateral cataract extraction History of tubal ligation History of cholecystectomy Social History household members: spouse Smoking Status: Former smoker alcohol intake: never substance use type: does not use caffeine: Yes Type: carbonated beverages Number of servings: 1 ROS ROS Narrative Review of Systems: Constitutional: Patient denies fever or chills. Eyes: Patient denies changes vision or discharge from eyes. ENT: Patient denies runny nose, sore throat or ear pain. Resp: Patient denies cough or shortness of breath beyond her baseline. CV: Patient denies chest pain, palpitations or heart racing. GI: Patient denies abdominal pain, nausea, vomiting, diarrhea or constipation. : Patient denies dysuria or hematuria. MSK: Patient admits to pain in her Right foot and Left knee after recent fall 2 days ago as per HPI. Skin: Patient denies rash, abscess, wounds or jaundice. Psych: Patient denies symptoms of uncontrolled depression or anxiety. Neuro: Patient admits to intermittent dizziness but she denies headache, paresthesias or focal neurologic deficits. Allergy: Patient denies lip swelling, tongue swelling or urticaria. Hematology: Patient admits to easy bleeding on apixaban. Endocrinology: Patient denies polyuria, polydipsia, polyphagia or heat/cold intolerance. 14 point ROS otherwise negative save for positives noted above in HPI. Vital Signs Vital Signs Vital Signs: 01/03/25 17:34 01/03/25 17:41 01/03/25 19:47 Temperature 96.7 F L Temperature Source Temporal Pulse Rate 101 H 101 H Respiratory Rate 18 24 H Respiratory Effort Normal Respiratory Pattern Normal Blood Pressure 105/87 H 121/79 H Blood Pressure Mean 93 93 Pulse Ox 98 94 Oxygen Delivery Method Room Air Nasal Cannula Oxygen Flow Rate (L/min) 01/03/25 21:00 01/03/25 21:19 Temperature 98.2 F 98.2 F Temperature Source Oral Pulse Rate 97 94 Respiratory Rate 19 H 22 H Respiratory Effort Respiratory Pattern Blood Pressure 105/68 110/78 Blood Pressure Mean 80 88 Pulse Ox 96 100 Oxygen Delivery Method Nasal Cannula Oxygen Flow Rate (L/min) 5 Weight Weight: 306 lb 3.553 oz Body Mass Index (BMI) 50.9 Physical Exam Const alert and no apparent distress Constitutional Narrative: Patient is mildly confused and morbidly obese. General Appearance: cooperative Orientation / Consciousness: confused HEENT normocephalic, head/scalp atraumatic, hearing grossly normal bilaterally and moist oral mucous membranes Eyes PERRL, EOMs intact bilaterally and conjunctivae normal Neck no lymphadenopathy and supple Resp normal respiratory effort, no retractions, no use of accessory muscles and clear to auscultation bilaterally Cardio regular rate and regular rhythm GI normal to inspection, nondistended, normoactive bowel sounds, soft to palpation, non-tender and non-distended GI Narrative: Morbidly obese. Extremity normal to inspection, full ROM and no clubbing, cyanosis or edema Skin Skin Narrative: Patient has no evidence of rash, abscess, wounds or jaundice Neuro CN's II-XII intact bilaterally, moves all extremities and no focal motor deficits Sensorium / Orientation: awake, alert, oriented to person and oriented to place Speech: speech normal Psych affect normal Results Medical Records Data Attestation: I reviewed the patient's medical records Lab / Micro Data Attestation: I reviewed the patient's lab results. 01/03/25 18:30 01/03/25 18:30 Labs: Laboratory Results - last 24 hr 01/03/25 18:30: WBC 7.0, RBC 4.02 L, Hgb 11.6 L, Hct 41.8, MCV 104.0 H, MCH 28.9, MCHC 27.8 L, RDW Std Deviation 55.2 H, RDW Coeff of Pattie 14.6, Plt Count 158, MPV 10.7, Immature Gran % (Auto) 0.900, Neut % (Auto) 73.5 H, Lymph % (Auto) 13.6 L, Ferry % (Auto) 10.7 H, Eos % (Auto) 0.7, Baso % (Auto) 0.6, Absolute Neuts (auto) 5.2, Absolute Lymphs (auto) 0.95, Nucleated RBC % 0.3, Sodium 142, Potassium 4.8, Chloride 99, Carbon Dioxide 33.8 H, Anion Gap 9, BUN 24 H, Creatinine 1.16, Estim Creat Clear Calc 51.16, Est GFR (MDRD) Non-Af 46 L, BUN/Creatinine Ratio 20.9 H, Glucose 151 H, Calcium 9.3 01/03/25 20:05: Urine Color Nhi, Urine Clarity Sl. Cloudy, Urine pH 6.0, Ur Specific Dunnell 1.025, Urine Protein 100 H, Urine Glucose (UA) Normal, Urine Ketones 5 H, Urine Occult Blood 10 H, Urine Nitrite Negative, Urine Bilirubin 1 H, Urine Urobilinogen 4 H, Ur Leukocyte Esterase 25 H, Urine RBC 0-5 SEEN, Urine WBC 5-10 SEEN, Ur Squamous Epith Cells 0 SEEN, Urine Bacteria 4+, Urine Mucus 0 SEEN Imaging Radiology Impression Foot X-Ray 01/03/25 18:08 IMPRESSION: No acute fracture or dislocation. Mild midfoot arthrosis. Reading Location: [facility] Knee X-Ray 01/03/25 18:08 IMPRESSION: Moderate arthrosis. Reading Location: [facility] Brain CT 01/03/25 18:25 IMPRESSION: 1. No acute intracranial finding. 2. Findings of chronic microvascular ischemic changes and age-related changes. Reading Location: [facility] Chest X-Ray 01/03/25 19:30 IMPRESSION: Mild cardiomegaly and trace left pleural effusion. Reading Location: [facility] Assessment & Plan Assessment/Plan (1) Acute cystitis without hematuria: (2) Metabolic encephalopathy: (3) Fall: QUALIFIERS: Encounter type: initial encounter Qualified Code(s): W19.XXXA - Unspecified fall, initial encounter (4) Contusion of knee, left: QUALIFIERS: Encounter type: initial encounter Qualified Code(s): S80.02XA - Contusion of left knee, initial encounter (5) Contusion of foot, right: QUALIFIERS: Encounter type: initial encounter Qualified Code(s): S90.31XA - Contusion of right foot, initial encounter (6) Morbid obesity with BMI of 50.0-59.9, adult: (7) Nonrheumatic aortic (valve) stenosis: (8) Atrial fibrillation: QUALIFIERS: Atrial fibrillation type: unspecified chronic Qualified Code(s): I48.20 - Chronic atrial fibrillation, unspecified (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 Acute Cystitis; without hematuria - Admit to general medical floor. Continue IV ceftriaxone begun in ER and await culture and sensitivity data. Give acetaminophen as needed pain or fever. 2. Metabolic Encephalopathy due to #1 - Check TSH, B12, folate, UDS, CHRISTEN and hemoglobin A1c to evaluate for potentially reversible causes of confusion. We will minimize potentially DURABLE MEDICAL EQUIPMENT REPAIRER-active medications to allow sensorium to clear. Otherwise, continue supportive care monitor for improvement. 3. Intermittent Dizziness and Contusions of the Right foot and Left knee after recent fall complicating #1 & #2 - Give meclizine as needed for dizziness. Give acetaminophen as needed for pain. 4. Super-morbid obesity; with BMI of 51 this admission adding to the burden of disease outlined from #1 - #3 - Weight loss will be recommended. Check TSH. This complicates her case and may hamper recovery. 5. History of atrial fibrillation; on apixaban adding to the medical complexity of #1 - #4 - Resume apixaban as previous. 6. History of hipihaej-ic-[id number] aortic stenosis (2021) plus nonrheumatic mitral valve disorder - Check echocardiogram to reassess this admission. 7. History of tobacco abuse; with subsequent COPD on prn 5L NC at home - Stable with no evidence of acute flare at this time. Continue prn nebulizers. 8. Essential hypertension; on furosemide - Continue home regimen plus give prn IV hydralazine for systolic blood pressure > 160 mmHg. 9. History of hyperlipidemia; with intolerance to statins - Check Lipid Profile. 10. Hypothyroidism; on levothyroxine - Maintain levothyroxine and check TSH. 11. DM-2; of unknown control on metformin - ADA diet. Check FSBS q. AC/HS plus lowest-intensity SSI. Check HgbA1c to objectively assess quality of diabetic control. 12. History of GI bleed - Noted with no evidence of recurrence at this time. 13. History of anemia - Stable with hemoglobin of 11.6 g/dL and MCV of 104 fL present on admission. Check B12 and Folate with macrocytosis present on admission. 14. History of umbilical hernia; s/p repair - Noted. 15. History of cholecystectomy - Noted. 16. History of COVID-19 - Noted. 17. OA; s/p Right knee surgery - Stable. Give acetaminophen prn pain. 18. DVT prophylaxis - Patient on apixaban for #5 which will be continued. Total time: Approximately (but not less than) 75 minutes. Charges/Coding Visit Charges Inpatient E&M: 93737 Init Hosp L3
[2025-01-03 22:19] VITALS: BP 105/77; PULSE 92; RESP 21; TEMP 36.6; O2SAT 96
--- NOTE | 2025-01-03 23:01 | ECHOCS_ITS ---
Reason For Study Reason For Study: Other Procedure This was a 2D Doppler, Color Flow transthoracic echocardiogram. Contrast injection was performed. Exam performed portable in patient room. Left Ventricle Normal LV size. The left ventricular ejection fraction is 60 %. No regional wall motion abnormalities noted. Right Ventricle Normal RV size. Normal systolic function. Atria Normal left atrium. Normal right atrium. Mitral Valve Bileaflet diffuse mitral valve thickening. There is moderate mitral annular calcification. Tricuspid Valve Normal tricuspid valve. Mild to moderate (1-2+) tricuspid valve insufficiency. Pulmonary artery systolic pressure is 45 mmHg. Mild pulmonary hypertension. Aortic Valve Peak aortic valve gradient 29 mmHg. Mean aortic valve gradient 17 mmHg. Great Vessels Normal aortic root. Pericardium/Pleural No pericardial effusion. Medication Diluted definity 1ml given slow IV push to enhance endocardial definition. MMode/2D Measurements & Calculations LVIDd: 4.3 cm IVSd: 1.1 cm LVOT diam: 2.0 cm LVIDs: 3.0 cm LVPWd: 1.3 cm LVOT area: 3.2 cm2 RVDd: 4.2 cm FS: 31.0 % Ao root diam: 3.5 cm LAV(MOD-bp): 105.1 ml LVAd ap4: 14.1 cm2 LAV(MOD-bp) Indexed: 44.8 ml/m2 LVLd ap4: 5.9 cm LAV(MOD-sp2): 105.2 ml EDV(MOD-sp4): 27.7 ml LAV(MOD-sp4): 95.9 ml EDV(sp4-el): 28.5 ml LVAs ap4: 8.2 cm2 LVLs ap4: 5.1 cm ESV(MOD-sp4): 11.0 ml ESV(sp4-el): 11.2 ml EF(MOD-sp4): 60.4 % EF(sp4-el): 60.7 % SV(MOD-sp4): 16.7 ml SV(sp4-el): 17.3 ml LA A4 area: 29.8 cm2 SI(MOD-sp4): 7.1 ml/m2 LA dimension(2D): 5.1 cm RA A4 area: 19.2 cm2 TAPSE: 1.2 cm Doppler Measurements & Calculations MV E max pascual: 148.2 cm/sec Lat Peak E' Pascual: 11.1 cm/sec Med Peak E' Pascual: 8.6 cm/sec E/E' lat: 13.3 E/E' med: 17.2 MV V2 max: 175.6 cm/sec Ao V2 max: 270.6 cm/sec LV V1 max: 95.0 cm/sec MV max P.3 mmHg Ao max P.3 mmHg LV V1 max P.7 mmHg MV V2 mean: 108.1 cm/sec Ao V2 mean: 197.5 cm/sec LV V1 mean P.8 mmHg MV mean P.5 mmHg Ao mean P.1 mmHg LV V1 mean: 63.4 cm/sec MV V2 VTI: 27.4 cm Ao V2 VTI: 53.2 cm LV V1 VTI: 18.4 cm AV (velocity ratio): 0.35 MVA(VTI): 2.1 cm2 MORIAH(I,D): 1.1 cm2 MORIAH(V,D): 1.1 cm2 SV(LVOT): 58.8 ml PA V2 max: 79.9 cm/sec TR max pascual: 318.5 cm/sec TR max P.6 mmHg ECHO/Echo Complete W/ Contrast Interpretation Summary Normal LV size. The left ventricular ejection fraction is 60 %. Bileaflet diffuse mitral valve thickening. There is moderate mitral annular calcification. Pulmonary artery systolic pressure is 45 mmHg. Ordering Physician: Nico Kinsey Referring Physician: Mihaela Ybarra Performed By: Cynthia Waite, DOLLYCS, RVT
[2025-01-03 23:05] LABS: Magnesium 1.9 mg/dL (1.5-2.2)
[2025-01-03 23:22] VITALS: BMI 51.5
[2025-01-03 23:27] VITALS: BP 119/97; PULSE 107; RESP 20; TEMP 36.4; O2SAT 94
[2025-01-03] MEDS: 0.9% Normal Saline (1000mL) 1,000 ML 70 ML IV (23:32)
[2025-01-04 00:01] LABS: Hemoglobin A1c 7.2 % (<=5.6)
[2025-01-04 00:10] LABS: Alcohol, Blood (Medical)-Serum < 10.1 mg/dL (<=10.0)
[2025-01-04 00:26] LABS: Vitamin B12 616 pg/mL (180-914)
[2025-01-04 05:17] VITALS: BP 95/78; PULSE 88; RESP 18; TEMP 36.6; O2SAT 97
[2025-01-04] MEDS: Levothyroxine 150 MCG Tablet PO (05:21)
[2025-01-04 06:25] LABS: Absolute Lymphocyte Count 1.08 X10^3/uL (0.83-4.51); Absolute Neutrophil Count 6.2 X10^3/uL (2.0-7.7); Basophil# 0.03 X10^3/uL; Basophil% 0.4 % (0-1); Eosinophil# 0.06 X10^3/uL; Eosinophils% 0.7 % (0-5); Hematocrit 39.1 % (37-47); Lymphocyte # 1.08 X10^3/ul (0.83-4.51); Lymphocyte % 13.2 % (19-41); Mean Corp Hgb Conc 28.1 g/dL (32-36); Mean Corpuscular Hgb 29.6 pg (27.0-32.0); Mean Corpuscular Volume 105.4 fL (81-99); Mean Platelet Vol. 10.9 fl (6.2-12.0); Monocyte# 0.75 X10^3/uL; Monocyte% 9.2 % (0-10); NRBC Flagged by Analyzer 0.4 % (0-5); Neutrophil # 6.21 X10^3/uL (2.7-7.7); Neutrophil % 75.8 % (47-70); Platelet Count 145 K/mm3 (150-450); RBC Distribution Width CV 14.6 % (11.6-14.6); RBC Distribution Width SD 55.3 fl (35.1-43.9); Red Blood Count 3.71 M/mm3 (4.2-5.4); White Blood Count 8.2 K/mm3 (4.4-11.0)
[2025-01-04 06:38] VITALS: BMI 51.2
[2025-01-04 07:05] LABS: ALB/GLOB Ratio 1.3 RATIO (0.9-2.4); AST(SGOT) 20 U/L (<=31); Alanine Aminotransfer ALT/SGPT 12 U/L (<=34); Albumin, Serum 3.5 g/dL (3.4-4.8); Alkaline Phosphatase 92 U/L (35-104); Anion Gap 8 (5-15); BUN 24 mg/dL (4-19); BUN/Creat Ratio 21.1 RATIO (10-20); Calcium,Total 9.1 mg/dL (7.6-11.0); Carbon Dioxide 33.1 mmol/L (21.0-32.0); Chloride 100 mmol/L (98-108); Cholesterol 101 mg/dL (<=200); Creatinine, Serum 1.13 mg/dL (0.70-1.20); EST Glomerular Filtration Rate 48 (>60); Estimated Creatinine Clearance 51.03 ml/min (50-250); Globulin 2.7 g/dL (2.2-4.2); Glucose 130 mg/dL (70-99); High Density Lipoprotein 49 mg/dL; Low Density Lipoprotein Calc. 37 mg/dL; Phosphorus 4.2 mg/dL (2.7-4.5); Protein, Total 6.2 g/dL (5.9-8.4); Sodium Level 141 mmol/L (133-145); Triglycerides 74 mg/dL; Very Low Density Lipoprotein 15 mg/dL (5-40); cholesterol:hdl ratio screen 2.07
--- NOTE | 2025-01-04 07:22 | PN.HOSP_ITS ---
Reason for Visit Reason for Visit: Intermittent dizziness Subjective Subjective Patient is a 84-year-old white female who presents emergency department [facility] on 01/03/2025 with chief complaint of intermittent dizzy spells. Patient reported that her symptoms began about a month prior to presentation when she developed dizzy spells that lasted about 1 to 2 minutes and then would resolve spontaneously. She also complained of possibly having some mild confusion at the time of the events. She denied a sensation of vertigo or feeling lightheaded and had a difficult time subjectively explaining what it felt like for her. She reported that it can happen daily but does not happen on a daily basis and symptoms began getting more severe so she decided to be evaluated. She did have a fall out of her bed injuring her left knee and right foot about 2 days prior to presentation however she was slow to ambulate without significant difficulty. She had no fever chills, nausea vomiting, abdominal pain, chest pain, shortness of breath, or headache. The emergency department was concerned about the patient and her having little understanding of her condition and requested case management consultation. Vital signs on presentation showed a temperature of 96.7, heart rate 101, blood pressure was 105/87, pulse ox was 98% on room air. CBC showed a normal white count and a chronic stable anemia with hemoglobin 11.6. She had a mild left shift with a 73.5% neutrophilia. She also had a monocytosis with a 10.7% monocyte count which is mild chemistry panel showed normal electrolytes with a chronically elevated serum bicarbonate 33.8. She is morbidly obese so I suspect she probably has some at least obesity hypoventilation syndrome in conjunction with probable sleep apnea. Renal function was at baseline showing a serum creatinine 1.16. Glucose was 151. Hemoglobin A1c was obtained and was found to be 7.2. She is a known diabetic. Liver functions were unremarkable. TSH was slightly elevated at 8.94 and the patient is already on levothyroxine. Her UA was suggestive of dehydration infection infection. She had a specific gravity of 1.025. Elevated serum protein. Ketones. Some minimal occult blood. Leuk esterase white cells and 4+ bacteria. CT of the brain showed chronic microvascular ischemic changes and age-related changes but was otherwise unremarkable. Foot x-ray knee x-ray and chest x-ray were unremarkable. Given her positive UA in the emergency department, urine culture was sent and she was started on ceftriaxone. Was felt that maybe this was contributing to the symptoms she was experiencing. The patient states today she is feeling better. No dizziness at this time. It does appear she has some baseline cognitive impairment and her does confirm confusion at baseline. Overall plan is for discharge to skilled facility as she is generally weak and has been for some time. Objective Data Objective Data Vital Signs: Vital Signs Temp Pulse Resp BP Pulse Ox O2 Del Method O2 Flow Rate 98 F 88 18 95/78 97 Nasal Cannula 5 01/04/25 05:17 01/04/25 05:17 01/04/25 05:17 01/04/25 05:17 01/04/25 05:17 01/04/25 05:17 01/04/25 05:17 Oxygen Flow Rate (L/min) 5 Oxygen Delivery Method Nasal Cannula Weight: 136 kg Body Mass Index (BMI) 51.2 Intake & Output: Intake and Output for Last 24 Hours 01/02/25 01/03/25 01/04/25 23:59 23:59 23:59 Intake Total 150 / 150 100 / 100 Output Total 0 / 0 0 / 0 Balance 150 / 150 100 / 100 Lab / Micro Data 01/04/25 06:11 01/04/25 06:11 Labs: Laboratory Results - last 24 hr 01/03/25 18:30: WBC 7.0, RBC 4.02 L, Hgb 11.6 L, Hct 41.8, MCV 104.0 H, MCH 28.9, MCHC 27.8 L, RDW Std Deviation 55.2 H, RDW Coeff of Pattie 14.6, Plt Count 158, MPV 10.7, Immature Gran % (Auto) 0.900, Neut % (Auto) 73.5 H, Lymph % (Auto) 13.6 L, [place] % (Auto) 10.7 H, Eos % (Auto) 0.7, Baso % (Auto) 0.6, Absolute Neuts (auto) 5.2, Absolute Lymphs (auto) 0.95, Nucleated RBC % 0.3, Sodium 142, Potassium 4.8, Chloride 99, Carbon Dioxide 33.8 H, Anion Gap 9, BUN 24 H, Creatinine 1.16, Estim Creat Clear Calc 51.16, Est GFR (MDRD) Non-Af 46 L, BUN/Creatinine Ratio 20.9 H, Glucose 151 H, Hemoglobin A1c 7.2, Calcium 9.3, Magnesium 1.9, Vitamin B12 616, TSH 8.940 H, Ethyl Alcohol < 10.1 01/03/25 20:05: Urine Color Nhi, Urine Clarity Sl. Cloudy, Urine pH 6.0, Ur Specific [place] 1.025, Urine Protein 100 H, Urine Glucose (UA) Normal, Urine Ketones 5 H, Urine Occult Blood 10 H, Urine Nitrite Negative, Urine Bilirubin 1 H, Urine Urobilinogen 4 H, Ur Leukocyte Esterase 25 H, Urine RBC 0-5 SEEN, Urine WBC 5-10 SEEN, Ur Squamous Epith Cells 0 SEEN, Urine Bacteria 4+, Urine Mucus 0 SEEN 01/04/25 06:11: WBC 8.2, RBC 3.71 L, Hgb 11.0 L, Hct 39.1, MCV 105.4 H, MCH 29.6, MCHC 28.1 L, RDW Std Deviation 55.3 H, RDW Coeff of Pattie 14.6, Plt Count 145 L, MPV 10.9, Immature Gran % (Auto) 0.700, Neut % (Auto) 75.8 H, Lymph % (Auto) 13.2 L, [place] % (Auto) 9.2, Eos % (Auto) 0.7, Baso % (Auto) 0.4, Absolute Neuts (auto) 6.2, Absolute Lymphs (auto) 1.08, Nucleated RBC % 0.4, Sodium 141, Potassium 5.0, Chloride 100, Carbon Dioxide 33.1 H, Anion Gap 8, BUN 24 H, Creatinine 1.13, Estim Creat Clear Calc 51.03, Est GFR (MDRD) Non-Af 48 L, B UN/Creatinine Ratio 21.1 H, Glucose 130 H, Calcium 9.1, Phosphorus 4.2, Total Bilirubin 0.70, AST 20, ALT 12, Alkaline Phosphatase 92, Total Protein 6.2, Albumin 3.5, Globulin 2.7, Albumin/Globulin Ratio 1.3, Triglycerides 74, Cholesterol 101, LDL Cholesterol, Calc 37, VLDL Cholesterol 15, HDL Cholesterol 49, Cholesterol/HDL Ratio 2.07 Radiography Diagnostic Testing: Radiology Impression Foot X-Ray 01/03/25 18:08 IMPRESSION: No acute fracture or dislocation. Mild midfoot arthrosis. Reading Location: [facility] Knee X-Ray 01/03/25 18:08 IMPRESSION: Moderate arthrosis. Reading Location: [facility] Brain CT 01/03/25 18:25 IMPRESSION: 1. No acute intracranial finding. 2. Findings of chronic microvascular ischemic changes and age-related changes. Reading Location: [facility] Chest X-Ray 01/03/25 19:30 IMPRESSION: Mild cardiomegaly and trace left pleural effusion. Reading Location: [facility] Physical Exam Const alert, no apparent distress and well nourished; Negative for oriented x3, average body habitus or healthy appearing Constitutional Narrative: Morbidly obese, elderly, white female, sitting up in bed, currently appears comfortable, nontoxic, oriented to self but not place or time, at bedside, therapy at bedside Orientation / Consciousness: confused HEENT head/scalp atraumatic, moist oral mucous membranes and oropharynx normal HEENT Narrative: Mallampati is 3-4, no thrush, patient with significant hearing loss Head and Scalp: normocephalic Resp normal respiratory effort, no retractions, no use of accessory muscles and clear to auscultation bilaterally Auscultation: Negative for rales, rhonchi or wheezes Cardio regular rate, S1 normal heart sound, S2 normal heart sound, no murmurs, no rub, no gallops and no clicks Cardio Narrative: Heart rate is irregularly irregular but rate is controlled GI normal to inspection, nondistended, normoactive bowel sounds, soft to palpation and non-tender GI Narrative: Large protuberant abdomen Extremity no clubbing, cyanosis or edema Extremity Narrative: Pedal pulses and radial pulses are 2+ Skin Skin Narrative: Cutaneous candidiasis noted Neuro oriented x3, moves all extremities and no focal motor deficits Speech: speech normal Psych affect normal Psych Narrative: Pleasant but confused Assessment & Plan Assessment/Plan (1) Metabolic encephalopathy: (2) Acute cystitis without hematuria: (3) Fall: QUALIFIERS: Encounter type: initial encounter Qualified Code(s): W19.XXXA - Unspecified fall, initial encounter PLAN: Plan Abnormal UA -Highly suspicious of UTI -Cultures pending -Continue ceftriaxone -Continue probiotics as ordered -Will treat as uncomplicated UTI Toxic/metabolic encephalopathy -CT of the brain unremarkable -Suspect may be related to the above -TSH is mildly elevated will check free T4 -Toxicology is unremarkable thus far -Blood alcohol levels unremarkable -B12 is within normal limits -Serum folate is normal Dizziness -Not vertiginous from what it sounds -etiology is unclear -Will have PT/OT evaluate -As needed meclizine available -If persistent may need MRI of the brain -Patient with history of pretty severe aortic valve disease--> echocardiogram is pending Nocturnal hypoxia -Highly suspect patient has obstructive sleep apnea that is untreated -Recommend outpatient polysomnography Chronic macrocytic anemia -B12 and folate are normal -Previous imaging showed cirrhosis of the liver related to nonalcoholic fatty liver disease -Hemoglobin is stable Thrombocytopenia -Mild -Appears to fluctuate -Will monitor 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 -Currently compensated -Continue home diuretics History of atrial fibrillation -In sinus rhythm on presentation -Continue home apixaban -Patient is not on any rate controlling medication Aortic valve stenosis -Most recent echo from 09/01/2024 showed an EF of 60% with indeterminate diastolic dysfunction inability to estimate RV systolic pressure however highly suspect elevated, and mild to moderate diffuse aortic valve thickening and stenosis and severe biatrial dilation -Mean aortic valve gradient was estimated to be 1.2 cm at that time -Repeat echocardiogram is pending with dizziness/lightheadedness symptoms on presentation to assess for worsening valvular disease as a contributing factor Abnormal TSH with history of hypothyroidism -Check free T4 in the morning -Patient with history of hypothyroidism and currently on levothyroxine 150 mcg daily Hyperlipidemia/essential hypertension -Continue Lasix -Patient is on no other hypertensive medications -Patient is intolerant to statins DM-2 -Hemoglobin A1c on presentation was 7.2 -Metformin 500 mg p.o. was her baseline medication -Hold oral agent -Accu-Cheks ordered before meals and at bedtime -Continue SSI as ordered -A.m. fasting sugars 130 Osteoarthritis -As needed Tylenol available Morbid obesity -BMI is 51.5 -Recommend weight loss -Complicates treatment, prognosis, outcomes DVT prophylaxis -Patient is fully anticoagulated with apixaban CODE STATUS -DNR CCA with no intubation as verified with her Charges/Coding Visit Charges Inpatient E&M: 41018 Subs Hosp L2
[2025-01-04 07:30] VITALS: BP 112/79; PULSE 78; RESP 20; TEMP 36.8; O2SAT 97
[2025-01-04] MEDS: Furosemide 40 MG Tablet PO (08:35)
[2025-01-04] MEDS: Lactobacillis Acidophilus 1 CAP PO ×3 (08:35→22:48)
[2025-01-04] MEDS: APIXABAN 5 MG TABLET PO ×2 (08:35→22:48)
[2025-01-04] MEDS: Glucerna Shake 120 ML LIQUID PO ×2 (08:36→17:03)
[2025-01-04] MEDS: Menthol/Lanolin/Calamine/Znox 113 GM Tube 1 APPLIC TOPICAL ×2 (08:36→22:46)
[2025-01-04] MEDS: Nystatin Powder 15gm Bottle 1 APPLIC TOPICAL ×2 (08:44→22:48)
--- NOTE | 2025-01-04 10:44 | CASEMGMT ---
Discharge Planning A list of SNF providers including quality and resource use data and consistent with the patient's preferred geographic region, medical needs, and insurance network were printed and provided to the SW from the [employer]. Monie Moreira, Discharge Planning Asst.
[2025-01-04 11:31] LABS: Bedside Glucose 125 mg/dL (74-106)
--- NOTE | 2025-01-04 11:34 | CASEMGMT ---
Social Work- SW met with pt, pt dtr, and pt spouse to discuss discharge plans. SW introduced self and role; pt and family agreeable to meet. SW provided education on SNF vs [place] levels of care and payor sources. Pt dtr reports that pt recently applied for half-way medicaid, but is uncertain as to if it has been submitted. Pt dtr is agreeable to meeting with Diamond from [employer] for follow up on application. Pt dtr reports that pt did not do well with a roommate at [facility] and would like a private room. Pt dtr also interested in potential memory care. SW reviewed list and provided education on facilities that meet both criteria. Pt was removing leads and placing them on coffee cup, spoon, tray, etc. during conversation and spilled her coffee down the front of her gown, stating that her hands were jerky. Pt was observed to have confusion and was not able to appropriately contribute to discussion. Pt spouse and daughter chose [facility]. DCA notified of referral request. ANNALEE remains available to follow. AMEENA Horan
[2025-01-04 11:49] LABS: Bedside Glucose 134 mg/dL (74-106)
--- NOTE | 2025-01-04 11:57 | CASEMGMT ---
Addendum entered by Monie Moreira 01/04/25 16:08: [facility] declined d/t not beds. Angelita to call in morning after checking on when she might have a female bed open. Monie Moreira DC Planning Asst. Addendum entered by Monie Moreira 01/04/25 12:05: [facility] declined. Monie Moreira DC Planning Asst. Original Note: Discharge Planning Referral sent to [facility]. Monie Moreira DC Planning Asst.
--- NOTE | 2025-01-04 13:01 | CASEMGMT ---
DANO WHITE Assessment Face to Face with patient for initial transition planning/care coordination assessment. DANO WHITE introduced self and role at [facility], pt voices understanding. Pt is A&Ox3 but does display minor confusion at this time. Pt is resting comfortably in the chair and is calm. Pt and daughter are at the bedside and willing to help answer this DANO WHITE questions as needed. Care providers, pharmacy, and demographics verified. Admitting dx: UTI with Metabolic Encephalopathy LACE Strata: 3 PCP: Mihaela Ybarra Specialists: [place] Preferred Pharmacy: [facility] Insurance: [place] A/B, [employer]. Pt daughter is requesting the pt to apply for MICHAEL. Diamond, Pt financial consultant has been notified and will talk with the pt and family. Prescription Benefit:Yes LNOK: Juan Grady (), Shalonda Rod (Daughter) Living Arrangements: Pt lives with her in a single story home with 3 steps to enter ADLs/IADLs: Pt reports that he assists the pt at home Transportation: , daughter DME: Home oxygen through [facility]. [facility] states that the pt has not been serviced since 2019. Pt daughter and state that the pt still has a concentrator, 2 portable tanks, and a pulse ox. Pt states that they recently had to use the portable tanks for the first time and that they are now empty. Pt family also reports that the pt has a BGM with sufficient supplies, Rollator, W/C, Shower chair, grab bars, and scooter. HHC/SNF: Reports history at [facility] and [facility] Pt?s goal: Return to PLOF Plan: Anticipate SNF. See previous Care Management notes as well as therapy notes. Report given to LEELA MATSON CM and SW. Bronson Napier RN, CM
--- NOTE | 2025-01-04 13:53 | CHAPLAIN ---
Type of Pastoral Visit _x__ Initial Visit ___ Follow-up Visit ___ On-call Visit ___ General Patient Visit ___ Spiritual Assessment ___ Family Conference ___ Bereavement ___ Rapid Response ___ Code Blue ___ Other (describe below) Pastoral Care Referral From _x__ Patient ___ Family ___ Nurse ___ Physician ___ Morning Show Host ___ Dermatology Physician Assistant ___ Other (describe below) Sacrament/Intervention ___ Active listening ___ Anointing ___ Yarsanism ___ Bereavement ___ Communion ___ Lety exploration ___ ___ Life review ___ Prayer ___ Reconciliation ___ Sacrament of Sick _x__ Supportive presence ___ Wedding ___ Other (describe below) Pastoral Comments patient is eating her lunch and is focused on continuing that activity; daughter is in the room; pt denies any needs; pt is asked about concerns or how she is coping to which the patient answers again that she is fine; offer of support or further clarification to the daughter who also denies needs
--- NOTE | 2025-01-04 15:06 | CASEMGMT ---
Updated SW that once a SNF is selected to pass on that pt DME provider for O2 is [facility] and they are not providing DME any longer as of November. Pt will need to be set up with new DME company should she need O2 upon dc from SNF.
--- NOTE | 2025-01-04 15:42 | CASEMGMT ---
Social Work- [facility] unable to accept pt referral. ANNALEE called pt dtr who will review list this evening with pt spouse and select additional choices. Pt dtr requests follow up from ANNALEE tomorrow after 11. AMEENA Horan
[2025-01-04 16:17] VITALS: BP 128/108; PULSE 84; RESP 20; TEMP 37; O2SAT 96
[2025-01-04 16:43] LABS: Bedside Glucose 147 mg/dL (74-106)
[2025-01-04] MEDS: Ceftriaxone 1 GM/50 ML BAG IV (22:46)
[2025-01-04 22:50] VITALS: BP 120/79; PULSE 92; RESP 20; TEMP 37.2; O2SAT 96
[2025-01-04 23:00] VITALS: PULSE 122
[2025-01-05] VITALS (8 sets, daily range): BP systolic 126–134; BP diastolic 68–84; PULSE 70–112; RESP 18–20; TEMP 36.9–37.1; O2SAT 90–95; BMI 51.8
[2025-01-05] MEDS: Levothyroxine 150 MCG Tablet PO (05:43)
[2025-01-05 05:54] LABS: Hematocrit 38.4 % (37-47); Hemoglobin 10.7 g/dL (12.0-15.0); Mean Corp Hgb Conc 27.9 g/dL (32-36); Mean Corpuscular Hgb 29.1 pg (27.0-32.0); Mean Corpuscular Volume 104.3 fL (81-99); Mean Platelet Vol. 10.9 fl (6.2-12.0); Platelet Count 152 K/mm3 (150-450); RBC Distribution Width CV 14.6 % (11.6-14.6); RBC Distribution Width SD 54.8 fl (35.1-43.9); Red Blood Count 3.68 M/mm3 (4.2-5.4)
[2025-01-05 07:01] LABS: Anion Gap 9 (5-15); BUN 27 mg/dL (4-19); BUN/Creat Ratio 20.1 RATIO (10-20); Calcium,Total 9.3 mg/dL (7.6-11.0); Carbon Dioxide 32.4 mmol/L (21.0-32.0); Chloride 98 mmol/L (98-108); Creatinine, Serum 1.32 mg/dL (0.70-1.20); EST Glomerular Filtration Rate 40 (>60); Estimated Creatinine Clearance 44.02 ml/min (50-250); Glucose 135 mg/dL (70-99); Magnesium 1.8 mg/dL (1.5-2.2); Phosphorus 3.5 mg/dL (2.7-4.5); Potassium 5.1 mmol/L (3.3-5.1); Sodium Level 139 mmol/L (133-145)
[2025-01-05 07:20] LABS: Bedside Glucose 138 mg/dL (74-106)
--- NOTE | 2025-01-05 07:22 | PN.HOSP_ITS ---
Reason for Visit Reason for Visit: Weakness Subjective Subjective Remains confused at baseline level. No significant issues overnight. No complaints currently. Awaiting Placement and will need precert. Objective Data Objective Data Vital Signs: Vital Signs Temp Pulse Resp BP Pulse Ox O2 Del Method O2 Flow Rate 98.6 F 112 H 19 H 126/74 H 95 Nasal Cannula 5 01/05/25 02:25 01/05/25 03:33 01/05/25 02:25 01/05/25 02:25 01/05/25 02:25 01/05/25 02:28 01/05/25 02:28 Oxygen Flow Rate (L/min) 5 Oxygen Delivery Method Nasal Cannula Weight: 137.7 kg Body Mass Index (BMI) 51.8 Intake & Output: Intake and Output for Last 24 Hours 01/03/25 01/04/25 01/05/25 23:59 23:59 23:59 Intake Total 150 / 150 2825 / 2825 250 / 250 Output Total 0 / 0 550 / 550 350 / 350 Balance 150 / 150 2275 / 2275 -100 / -100 Lab / Micro Data 01/05/25 05:31 01/05/25 05:31 Labs: Laboratory Results - last 24 hr 01/04/25 06:11: Serum Folate 8.70 01/04/25 06:37: POC Glucose 125 H 01/04/25 11:29: POC Glucose 134 H 01/04/25 16:21: POC Glucose 147 H 01/05/25 05:31: WBC 9.0, RBC 3.68 L, Hgb 10.7 L, Hct 38.4, MCV 104.3 H, MCH 29.1, MCHC 27.9 L, RDW Std Deviation 54.8 H, RDW Coeff of Pattie 14.6, Plt Count 152, MPV 10.9, Sodium 139, Potassium 5.1, Chloride 98, Carbon Dioxide 32.4 H, Anion Gap 9, BUN 27 H, Creatinine 1.32 H, Estim Creat Clear Calc 44.02 L, Est GFR (MDRD) Non-Af 40 L, BUN/Creatinine Ratio 20.1 H, Glucose 135 H, Calcium 9.3, Phosphorus 3.5, Magnesium 1.8, Free T4 0.70 L 01/05/25 05:35: POC Glucose 138 H Micro: Microbiology 01/03/25 20:05 Urine, Catheterized Urine Culture - Preliminary GNR lactose specialty therapist Radiography Diagnostic Testing: Radiology Impression Echocardiogram 01/03/25 23:01 Interpretation Summary Normal LV size. The left ventricular ejection fraction is 60 %. Bileaflet diffuse mitral valve thickening. There is moderate mitral annular calcification. Pulmonary artery systolic pressure is 45 mmHg. Ordering Physician: Nico Kinsey Referring Physician: Mihaela Ybarra Performed By: Cynthia Waite, DONNA, RVT Physical Exam Const alert, no apparent distress and well nourished; Negative for oriented x3, average body habitus or healthy appearing Constitutional Narrative: Morbidly obese, elderly, white female, sitting up in bed, sitting at bedside, currently appears comfortable, nontoxic, oriented to self but not place or time, remains confused but at baseline General Appearance: cooperative Orientation / Consciousness: confused HEENT normocephalic, head/scalp atraumatic and moist oral mucous membranes HEENT Narrative: [place], Mallampati 3, dentures in place Resp normal respiratory effort, no retractions, no use of accessory muscles and clear to auscultation bilaterally Resp Narrative: distant 2/2 body habitus Auscultation: Negative for rales, rhonchi or wheezes Cardio regular rate, regular rhythm, S1 normal heart sound, S2 normal heart sound, no murmurs, no rub, no gallops and no clicks Cardio Narrative: Heart rate is irregularly irregular but rate is controlled GI normal to inspection, nondistended, normoactive bowel sounds, soft to palpation and non-tender GI Narrative: Large protuberant abdomen Extremity no clubbing, cyanosis or edema Extremity Narrative: Pedal pulses and radial pulses are 2+ Neuro moves all extremities and no focal motor deficits Neuro Narrative: marked general weakness c/w age related and disuse sarcopenia Speech: speech normal Psych affect normal Psych Narrative: Pleasant but confused Assessment & Plan Assessment/Plan (1) Metabolic encephalopathy: (2) Acute cystitis without hematuria: (3) Fall: QUALIFIERS: Encounter type: initial encounter Qualified Code(s): W19.XXXA - Unspecified fall, initial encounter (4) E. coli UTI: PLAN: Plan E. Coli UTI -Highly suspicious of UTI -[place] sensitive e. coli -Continue ceftriaxone with plan to d/c with keflex for 5-7 day course -Continue probiotics as ordered Toxic/metabolic encephalopathy -CT of the brain unremarkable -Suspect may be related to the above -seems back to baseline Dizziness -Not vertiginous from what it sounds -resolving -ECHO shows and EF of 60% with MV thickening, RVSP 45 mmHg Nocturnal hypoxia -Highly suspect patient has obstructive sleep apnea that is untreated -Recommend outpatient polysomnography CKD Stage 3b -sCr fluctuates some but currently c/w baseline -montior Chronic macrocytic anemia -B12 and folate are normal -Previous imaging showed cirrhosis of the liver related to nonalcoholic fatty liver disease -Hemoglobin is stable Thrombocytopenia -Mild and stable -Appears to fluctuate -Will monitor 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 -Currently compensated -Continue home diuretics History of atrial fibrillation -In sinus rhythm on presentation but currently in a-fib rate controlled -Continue home apixaban -Patient is not on any rate controlling medication Aortic valve stenosis -Most recent echo from 09/01/2024 showed an EF of 60% with indeterminate diastolic dysfunction inability to estimate RV systolic pressure however highly suspect elevated, and mild to moderate diffuse aortic valve thickening and stenosis and severe biatrial dilation -Mean aortic valve area was estimated to be 1.2 cm at that time -repeat echo shows area of 1.1 with stable estimated gradients Abnormal TSH with history of hypothyroidism -Free T4 off slightly -would recheck in 6-8 weeks as an outpt -continue levothyroxine 150 mcg daily Hyperlipidemia/essential hypertension -Continue Lasix -Patient is on no other hypertensive medications -Patient is intolerant to statins DM-2 -Hemoglobin A1c on presentation was 7.2 -Metformin 500 mg p.o. was her baseline medication -Hold oral agent -Accu-Cheks ordered before meals and at bedtime -Continue SSI as ordered -A.m. fasting sugars 135 Osteoarthritis -As needed Tylenol available Morbid obesity -BMI is 52.5 -Recommend weight loss -Complicates treatment, prognosis, outcomes DVT prophylaxis -Patient is fully anticoagulated with apixaban CODE STATUS -DNR CCA with no intubation Disposition: Pt is medically stable for discharge as of 01/05/2025. Awaiting precert. Charges/Coding Visit Charges Inpatient E&M: 17482 Subs Hosp L2
[2025-01-05] MEDS: Glucerna Shake 120 ML LIQUID PO ×3 (09:14→17:45)
[2025-01-05] MEDS: Furosemide 40 MG Tablet PO (09:15)
[2025-01-05] MEDS: Menthol/Lanolin/Calamine/Znox 113 GM Tube 1 APPLIC TOPICAL ×2 (09:15→22:28)
[2025-01-05] MEDS: APIXABAN 5 MG TABLET PO ×2 (09:15→22:28)
[2025-01-05] MEDS: Nystatin Powder 15gm Bottle 1 APPLIC TOPICAL ×2 (09:15→22:28)
[2025-01-05] MEDS: Lactobacillis Acidophilus 1 CAP PO ×4 (09:15→22:28)
[2025-01-05] MEDS: Metoprolol(XL)Succ 50 MG Tablet PO (11:43)
[2025-01-05] MEDS: Insulin Lispro 100 UNIT/ML INSULN.PEN SC ×2 (11:55→17:45)
[2025-01-05 12:48] LABS: Bedside Glucose 153 mg/dL (74-106)
[2025-01-05] MEDS: Acetaminophen 325 MG Tablet 650 MG PO (13:21)
--- NOTE | 2025-01-05 15:00 | CASEMGMT ---
Social Work ANNALEE spoke with pt's dgt Shalonda. Shalonda states that pt needs a private room and family has no preference on facility. Pt to go to SNF skilled initially but will stay intermediate. ANNALEE did inform Shalonda that [facility] and [facility] have private rooms only. Other facilities have both private and semi private. Shalonda spoke with family and FOC is [facility]. [facility] admissions assistant updated and to send referral. Plan: [facility], pending acceptance AMEENA Myles
--- NOTE | 2025-01-05 15:56 | CASEMGMT ---
Addendum entered by Monie Moreira 01/06/25 11:53: [facility]. Monie Moreira DC Planning Asst. Original Note: Discharge Planning Referral sent to [facility]. [facility] has declined d/t no ferry terminal agent bed availability. Note sent asking if pt can be placed on wait list. Awaiting response. Monie Moreira DC Planning Asst.
[2025-01-05 18:06] LABS: Bedside Glucose 159 mg/dL (74-106)
[2025-01-05] MEDS: Ceftriaxone 1 GM/50 ML BAG IV (22:09)
[2025-01-05] MEDS: 0.9% Saline Lock 10 ML Syringe IV (22:31)
[2025-01-06] VITALS (22 sets, daily range): BP systolic 107–136; BP diastolic 58–88; PULSE 78–104; RESP 12–28; TEMP 36.2–37.1; O2SAT 93–99; BMI 51.8
[2025-01-06] MEDS: Levothyroxine 150 MCG Tablet PO (06:22)
[2025-01-06 07:08] LABS: Bedside Glucose 144 mg/dL (74-106)
[2025-01-06 10:16] LABS: Base Excess 10 mmol/L (-2 to +2); Bicarbonate 38.9 mmol/L (22-26); Blood Gas Specimen Type ART; Mode Not entered; O2 Delivery Device Cannula; PO2 74 mmHG (75-100); SITE R Radial; SO2 88 % (95-99); Time Given 10:14:01; Total Carbon Dioxide 42 mmol/L; pCO2 107.2 mmHg (35-45); pH 7.17 (7.35-7.45)
--- NOTE | 2025-01-06 10:19 | CT_ITS ---
EXAM: CT Head Without Intravenous Contrast CLINICAL INDICATION: STROKE ALERT TECHNIQUE: Axial computed tomography images of the head/brain without intravenous contrast. This CT exam was performed using one or more of the following dose reduction techniques: automated exposure control, adjustment of the mA and/or kV according to patient size, and/or use of iterative reconstruction technique. COMPARISON: CT Head dated 01/03/2025 FINDINGS: BRAIN AND EXTRA-AXIAL SPACES: No acute intracranial hemorrhage, midline shift or mass effect. If symptoms persist, further evaluation with MRI is recommended. Areas of decreased attenuation in the deep cerebral white matter are consistent with small vessel ischemic/degenerative changes. BONES/JOINTS: Unremarkable. No acute fracture. SOFT TISSUES: Unremarkable. SINUSES: Unremarkable as visualized. No acute sinusitis. MASTOID AIR CELLS: Unremarkable as visualized. No mastoid effusion. CT/STROKE Brain/Head without Cont IMPRESSION: 1. No acute intracranial hemorrhage, midline shift or mass effect. If symptoms persist, further evaluation with MRI is recommended. 2. Small vessel ischemic/degenerative changes. Reading Location: [facility]
--- NOTE | 2025-01-06 10:54 | NURSING ---
Stroke alert activated and Dr. Payne ordered blood gas before leaving for CT. Patient confused and not responding or following commands so unable to do accurate NIH. Upon arrival to CT, ABG results were received. Stroke alert cancelled at this time and Dr. Payne stated that [facility] MD was not required.
--- NOTE | 2025-01-06 10:55 | NURSING ---
This RN is taking over pt care at this time.
--- NOTE | 2025-01-06 10:59 | CASEMGMT ---
Discharge Planning In regards to private room availability, [facility] does have a few private rooms allocated to MICHAEL pts, however there is no immediate availability. [facility] also will place MICHAEL pts in some private rooms but that has to be approved by administration. SW updated. Monie Moreira DC Planning Asst.
--- NOTE | 2025-01-06 11:10 | NURSING ---
After beginning assessment this RN told nicker and breaker Karen about pt condition and which resulted in a Stroke Alert. Unable to complete assessment.
[2025-01-06 11:26] LABS: Bedside Glucose 139 mg/dL (74-106)
[2025-01-06 11:39] LABS: Bedside Glucose 121 mg/dL (74-106)
--- NOTE | 2025-01-06 11:51 | CASEMGMT ---
Social Work SW responded to stroke alert. Support provided to pt's . inquiring about code status stating pt would want DNRCCA with no intubation. SW checked physician orders and confirmed with pt's spouse that this is the current ordered code status for pt. appreciative of information. Pt moving to PCU. ANNALEE provided handoff to Yomaira Christal WARNER. AMEENA Myles
[2025-01-06 13:30] LABS: Base Excess 11 mmol/L (-2 to +2); Blood Gas Specimen Type ART; Mode ST; O2 Delivery Device BiPAP; PEEP 12; PO2 29 mmHG (75-100); RR 14; SITE R Radial; SO2 34 % (95-99); Time Given 13:26:25; Total Carbon Dioxide 44 mmol/L; pCO2 114.7 mmHg (35-45); pH 7.15 (7.35-7.45)
--- NOTE | 2025-01-06 14:25 | CASEMGMT ---
Social Work ANNALEE received call from pt's dgt Shalonda regarding SNF placement. ANNALEE updated Shalonda that [facility] and [facility] have no available beds ([facility] already declined due to no beds). ANNALEE reviewed with Shalonda list of SNF options. 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 ANNALEE updated that [facility], [facility], [facility] have no private rooms available. Shalonda declining to send referrals to [facility], [facility], [facility] and [facility]. Shalonda agreeable to referrals to [facility], [facility] and any facility in [place]. Shalonda also requesting placement at [facility] as first choice. ANNALEE explained that this facility usually does not accept pt's immediately from the hospital but SW will call. Call placed to [facility] and VM left requesting return call for referral. [facility] advertising assistant update and to send referrals. AMEENA Myles
--- NOTE | 2025-01-06 14:26 | CASEMGMT ---
Addendum entered by Monie Moreira 01/06/25 16:22: [facility] accepted and is foc. [facility] asked to cancel referral. SW updated. Monie Moreira DC Planning Asst. Original Note: Discharge Planning Referral sent to [facility] and [facility]. Monie Moreira DC Planning Asst
[2025-01-06 14:36] LABS: Allen Test Positive; Base Excess 10 mmol/L (-2 to +2); Bicarbonate 37.8 mmol/L (22-26); Blood Gas Specimen Type ART; Mode Not entered; O2 Delivery Device avaps; PEEP 10; PO2 90 mmHG (75-100); RR 14; SITE R Radial; SO2 94 % (95-99); Time Given 14:34:20; Total Carbon Dioxide 41 mmol/L; pCO2 91.2 mmHg (35-45); pH 7.23 (7.35-7.45)
--- NOTE | 2025-01-06 16:30 | CASEMGMT ---
Social Work SW spoke with pt dgt Shalonda on the phone and informed that [facility] is able to accept, however cannot gaurentee a predatory animal exterminator private room. [facility] and is able to provide a private room. Shalonda requesting placement at [facility] which can accept pt on Friday. [facility] AMEENA Myles
[2025-01-06 17:32] LABS: Bedside Glucose 95 mg/dL (74-106)
--- NOTE | 2025-01-06 19:18 | PN.HOSP_ITS ---
Reason for Visit Reason for Visit: Generalized weakness Subjective Subjective Stroke team was initiated today by nursing due to altered mental status and decreased arousability. Patient had some confusion overnight which is not completely atypical for her with her dementia. Objective Data Objective Data Vital Signs: Vital Signs Temp Pulse Resp BP Pulse Ox O2 Del Method O2 Flow Rate 97.2 F L 91 20 H 132/68 H 94 Bi-pap 5 01/06/25 10:54 01/06/25 19:04 01/06/25 18:00 01/06/25 19:04 01/06/25 19:04 01/06/25 19:04 01/06/25 10:50 FiO2 35 01/06/25 19:04 Oxygen Flow Rate (L/min) 5 Oxygen Delivery Method Bi-pap Weight: 137.8 kg Body Mass Index (BMI) 51.8 Intake & Output: Intake and Output for Last 24 Hours 01/04/25 01/05/25 01/06/25 23:59 23:59 23:59 Intake Total 2825 / 2825 250 / 250 50 / 50 Output Total 550 / 550 800 / 1050 400 / 400 Balance 2275 / 2275 -550 / -800 -350 / -350 Lab / Micro Data 01/05/25 05:31 01/05/25 05:31 Labs: Laboratory Results - last 24 hr 01/06/25 06:20: POC Glucose 144 H 01/06/25 09:55: POC Glucose 139 H 01/06/25 11:20: POC Glucose 121 H 01/06/25 16:32: POC Glucose 95 Micro: Microbiology 01/03/25 20:05 Urine, Catheterized Urine Culture - Final Escherichia coli ABG Data ABG results: ABG 01/06/25 01/06/25 01/06/25 10:12 13:24 14:32 Specimen Type ART ART ART Sample Site R Radial R Radial R Radial pH 7.17 L* 7.15 L* 7.23 L Bicarbonate Actual 38.9 H 40.0 H 37.8 H Total CO2 42 44 41 Base Excess 10 H 11 H 10 H O2 Saturation 88 L 34 L 94 L O2 % 5.0 40.0 40.0 ABG pCO2 107.2 H* 114.7 H* 91.2 H* ABG pO2 74 L 29 L* 90 González Test N/A N/A Positive Respiration Rate 14 14 O2 Delivery Device Cannula BiPAP avaps Vent Mode Not entered ST Not entered Tidal Volume 450.0 450.0 POC PEEP 12 10 Crit Call To/Read Back Yes Yes Yes Blood Gas Notified Whom jane lara Blood Gas Notified Time 10:14:01 13:26:25 14:34:20 Radiography Diagnostic Testing: Radiology Impression Brain CT 01/06/25 10:19 IMPRESSION: 1. No acute intracranial hemorrhage, midline shift or mass effect. If symptoms persist, further evaluation with MRI is recommended. 2. Small vessel ischemic/degenerative changes. Reading Location: [facility] Physical Exam Const no apparent distress and well nourished; Negative for average body habitus or healthy appearing Constitutional Narrative: Morbidly obese, elderly, white female, lying in bed, and granddaughter at bedside, patient is arousable only to noxious stimuli and then for only brief periods of time Orientation / Consciousness: confused, disoriented and lethargic HEENT normocephalic and head/scalp atraumatic Eyes PERRL and conjunctivae normal Neck no lymphadenopathy and supple Neck Narrative: Neck is short and thick Resp normal respiratory effort, no retractions, no use of accessory muscles and clear to auscultation bilaterally Resp Narrative: distant 2/2 body habitus Auscultation: Negative for rales, rhonchi or wheezes Cardio regular rate, S1 normal heart sound, S2 normal heart sound, no murmurs, no rub, no gallops and no clicks Cardio Narrative: Heart rate is irregularly irregular but rate is controlled GI normal to inspection, nondistended, normoactive bowel sounds, soft to palpation and non-tender GI Narrative: Large protuberant abdomen Extremity no clubbing, cyanosis or edema Extremity Narrative: Pedal pulses and radial pulses are 2+ Skin Skin Narrative: Cutaneous candidiasis noted Neuro moves all extremities and no focal motor deficits Neuro Narrative: Spontaneously moves all 4 extremities to noxious stimulus Psych Psych Narrative: Patient very sleepy Assessment & Plan Assessment/Plan (1) Metabolic encephalopathy: (2) Acute cystitis without hematuria: (3) Fall: QUALIFIERS: Encounter type: initial encounter Qualified Code(s): W19.XXXA - Unspecified fall, initial encounter (4) E. coli UTI: PLAN: Plan Acute on chronic hypercapnic respiratory failure on chronic hypoxic respiratory failure -Altered mental status likely related to marked respiratory acidosis -ABG obtained and pH was 7.17 with a pCO2 of 107.2 and a pO2 of 74 on her baseline oxygen of 5 L -AutoPap started stat -Repeat blood gas was obtained with improvement in mentation is improving -Patient is supposed to wear CPAP at night due to sleep apnea however refuses -I did discuss extensively with the granddaughter who is at the bedside and has knowledge of what is going on that if she continues not to wear her CPAP that this is going to happen repetitively--> she did voice understanding and we will trying to get her on CPAP at night on a consistent basis E. Coli UTI -trujillo sensitive e. coli -Continue ceftriaxone with plan to d/c with keflex to complete a 5 day course -Continue probiotics as ordered Toxic/metabolic encephalopathy -CT of the brain on admission was unremarkable -Acutely new due to hypercapnia -Should resolve with resolution of her hypercapnia Dizziness -Not vertiginous from what it sounds -Seems to be resolved -ECHO shows and EF of 60% with MV thickening, RVSP 45 mmHg Nocturnal hypoxia/OCTAVIO untreated due to compliance -Highly suspect patient has obstructive sleep apnea that is untreated CKD Stage 3b -sCr fluctuates some but currently c/w baseline -montior Chronic macrocytic anemia -B12 and folate are normal -Previous imaging showed cirrhosis of the liver related to nonalcoholic fatty liver disease -Hemoglobin has been stable -Repeat lab in a.m. 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 -Currently compensated -Continue home diuretics History of atrial fibrillation -In sinus rhythm on presentation but currently in a-fib rate controlled -Continue home apixaban -Patient is not on any rate controlling medication Aortic valve stenosis -Most recent echo from 09/01/2024 showed an EF of 60% with indeterminate diastolic dysfunction inability to estimate RV systolic pressure however highly suspect elevated, and mild to moderate diffuse aortic valve thickening and stenosis and severe biatrial dilation -Mean aortic valve area was estimated to be 1.2 cm at that time -repeat echo shows area of 1.1 with stable estimated gradients Abnormal TSH with history of hypothyroidism -Free T4 off slightly -would recheck in 6-8 weeks as an outpt -continue levothyroxine 150 mcg daily Hyperlipidemia/essential hypertension -Continue Lasix -Patient is on no other hypertensive medications -Patient is intolerant to statins DM-2 -Hemoglobin A1c on presentation was 7.2 -Metformin 500 mg p.o. was her baseline medication -Hold oral agent -Accu-Cheks ordered before meals and at bedtime -Continue SSI as ordered -A.m. fasting sugars 144 Osteoarthritis -As needed Tylenol available Morbid obesity -BMI is 52.1 -Recommend weight loss -Complicates treatment, prognosis, outcomes DVT prophylaxis -Patient is fully anticoagulated with apixaban CODE STATUS -DNR CCA with no intubation Disposition: Plan was to discharge today however with acute change we will hold discharge and treat with BiPAP if resolved tomorrow we can probably go ahead and discharge but she will need to wear BiPAP on a regular basis or she will have recurrent admissions related to hypercapnic respiratory failure due to noncompliance with severe OCTAVIO and obesity hypoventilation syndrome Charges/Coding Visit Charges Inpatient E&M: 47678 Subs Hosp L3
[2025-01-06] MEDS: Lorazepam 2 MG/ML WCH Syringe 0.25 MG IV (21:47)
[2025-01-06] MEDS: Ceftriaxone 1 GM/50 ML BAG IV (22:05)
[2025-01-06] MEDS: APIXABAN 5 MG TABLET PO (22:05)
[2025-01-06] MEDS: Menthol/Lanolin/Calamine/Znox 113 GM Tube 1 APPLIC TOPICAL (22:10)
[2025-01-06] MEDS: Albuterol 2.5 MG/3 ML VIAL.NEB. INHALATION (23:10)
[2025-01-06 23:23] LABS: Allen Test Positive; Base Excess 14 mmol/L (-2 to +2); Bicarbonate 39.7 mmol/L (22-26); Blood Gas Specimen Type ART; Mode Not entered; O2 Delivery Device Cannula; PO2 64 mmHG (75-100); SITE L Radial; SO2 89 % (95-99); Time Given 23:19:49; Total Carbon Dioxide 42 mmol/L; pCO2 75.1 mmHg (35-45); pH 7.33 (7.35-7.45)
[2025-01-06 23:47] LABS: Bedside Glucose 87 mg/dL (74-106)
[2025-01-07] VITALS (20 sets, daily range): BP systolic 97–124; BP diastolic 57–81; PULSE 87–122; RESP 14–30; TEMP 36.4–37.2; O2SAT 4–99; BMI 51.8
[2025-01-07] MEDS: Nystatin Powder 15gm Bottle 1 APPLIC TOPICAL ×3 (00:24→21:05)
[2025-01-07 05:47] LABS: Allen Test Positive; Base Excess 17 mmol/L (-2 to +2); Bicarbonate 41.9 mmol/L (22-26); Blood Gas Specimen Type ART; Mode Not entered; O2 Delivery Device Cannula; PO2 67 mmHG (75-100); SITE L Radial; SO2 91 % (95-99); Total Carbon Dioxide 44 mmol/L; pH 7.37 (7.35-7.45)
[2025-01-07 06:11] LABS: Hematocrit 35.6 % (37-47); Hemoglobin 10.4 g/dL (12.0-15.0); Mean Corp Hgb Conc 29.2 g/dL (32-36); Mean Corpuscular Hgb 29.5 pg (27.0-32.0); Mean Corpuscular Volume 100.8 fL (81-99); Mean Platelet Vol. 11.2 fl (6.2-12.0); Platelet Count 142 K/mm3 (150-450); RBC Distribution Width CV 14.6 % (11.6-14.6); RBC Distribution Width SD 52.5 fl (35.1-43.9); Red Blood Count 3.53 M/mm3 (4.2-5.4); White Blood Count 9.3 K/mm3 (4.4-11.0)
[2025-01-07 06:18] LABS: Bedside Glucose 86 mg/dL (74-106)
[2025-01-07 06:37] LABS: Anion Gap 11 (5-15); BUN 43 mg/dL (4-19); BUN/Creat Ratio 30.8 RATIO (10-20); Calcium,Total 9.5 mg/dL (7.6-11.0); Carbon Dioxide 32.8 mmol/L (21.0-32.0); Chloride 98 mmol/L (98-108); EST Glomerular Filtration Rate 37 (>60); Estimated Creatinine Clearance 41.51 ml/min (50-250); Glucose 90 mg/dL (70-99); Potassium 5.1 mmol/L (3.3-5.1); Sodium Level 142 mmol/L (133-145)
[2025-01-07] MEDS: Menthol/Lanolin/Calamine/Znox 113 GM Tube 1 APPLIC TOPICAL ×2 (08:56→21:05)
[2025-01-07] MEDS: APIXABAN 5 MG TABLET PO ×2 (08:57→21:04)
[2025-01-07] MEDS: Metoprolol(XL)Succ 50 MG Tablet PO (08:57)
[2025-01-07] MEDS: Furosemide 40 MG Tablet PO (08:58)
[2025-01-07 12:10] LABS: Bedside Glucose 90 mg/dL (74-106)
--- NOTE | 2025-01-07 15:22 | CPS ---
Critical values verified times two.Hand delivered results to DR. Dominga Payne.
[2025-01-07 15:26] LABS: Allen Test Positive; Base Excess 17 mmol/L (-2 to +2); Bicarbonate 42.6 mmol/L (22-26); Blood Gas Specimen Type ART; Mode Not entered; O2 Delivery Device BiPAP; PO2 39 mmHG (75-100); SITE L Radial; SO2 67 % (95-99); Total Carbon Dioxide 45 mmol/L; pCO2 78.4 mmHg (35-45); pH 7.34 (7.35-7.45)
--- NOTE | 2025-01-07 16:24 | PCM.PN.HOSP ---
Reason for Visit Reason for Visit: Generalized weakness Subjective Subjective No issues overnight. Patient was awake this morning and taking a nap this afternoon at the time my evaluation. Much more appropriate. pCO2 is much improved. I did impress the importance of ongoing BiPAP nocturnally and with naps to family. If this compliance is an issue she is going to likely have recurrent admissions to the hospital. Was unfortunately given Ativan last night has been very drowsy all day. Objective Data Objective Data Vital Signs: Vital Signs Temp Pulse Resp BP Pulse Ox O2 Del Method O2 Flow Rate 97.6 F L 98 20 H 122/73 H 96 Bi-pap 5 01/07/25 16:03 01/07/25 16:03 01/07/25 16:03 01/07/25 16:03 01/07/25 16:03 01/07/25 16:03 01/07/25 13:29 FiO2 35 01/07/25 16:03 Oxygen Flow Rate (L/min) 5 Oxygen Delivery Method Bi-pap Weight: 137.7 kg Body Mass Index (BMI) 51.8 Intake & Output: Intake and Output for Last 24 Hours 01/05/25 01/06/25 01/07/25 23:59 23:59 23:59 Intake Total 250 / 250 100 / 150 110 / 110 Output Total 800 / 1050 400 / 600 700 / 700 Balance -550 / -800 -300 / -450 -590 / -590 Lab / Micro Data 01/07/25 05:36 01/07/25 05:36 Labs: Laboratory Results - last 24 hr 01/06/25 16:32: POC Glucose 95 01/06/25 21:44: POC Glucose 87 01/07/25 05:36: WBC 9.3, RBC 3.53 L, Hgb 10.4 L, Hct 35.6 L, MCV 100.8 H, MCH 29.5, MCHC 29.2 L, RDW Std Deviation 52.5 H, RDW Coeff of Pattie 14.6, Plt Count 142 L, MPV 11.2, Sodium 142, Potassium 5.1, Chloride 98, Carbon Dioxide 32.8 H, Anion Gap 11, BUN 43 H, Creatinine 1.40 H, Estim Creat Clear Calc 41.51 L, Est GFR (MDRD) Non-Af 37 L, BUN/Creatinine Ratio 30.8 H, Glucose 90, Calcium 9.5 01/07/25 05:57: POC Glucose 86 01/07/25 11:23: POC Glucose 90 Micro: Microbiology 01/03/25 20:05 Urine, Catheterized Urine Culture - Final Escherichia coli ABG Data ABG results: ABG 01/06/25 01/07/25 01/07/25 23:17 05:43 15:22 Specimen Type ART ART ART Sample Site L Radial L Radial L Radial pH 7.33 L 7.37 7.34 L Bicarbonate Actual 39.7 H 41.9 H 42.6 H Total CO2 42 44 45 Base Excess 14 H 17 H 17 H O2 Saturation 89 L 91 L 67 L O2 % 4.0 4.0 35.0 ABG pCO2 75.1 H* 72.0 H* 78.4 H* ABG pO2 64 L 67 L 39 L* González Test Positive Positive Positive O2 Delivery Device Cannula Cannula BiPAP Vent Mode Not entered Not entered Not entered Crit Call To/Read Back Yes Yes Yes Blood Gas Notified Whom Dr. Tio Kinsey Blood Gas Notified Time 23:19:49 05:45:21 Physical Exam Const no apparent distress and well nourished; Negative for oriented x3, average body habitus or healthy appearing Constitutional Narrative: Morbidly obese, elderly, white female, lying in bed on BiPAP, at bedside sleeping, patient awakens easily and moves all extremities Orientation / Consciousness: confused HEENT normocephalic, head/scalp atraumatic, hearing grossly normal bilaterally, moist oral mucous membranes and oropharynx normal Resp normal respiratory effort, no retractions, no use of accessory muscles and clear to auscultation bilaterally Resp Narrative: distant 2/2 body habitus Auscultation: Negative for rales, rhonchi or wheezes Cardio regular rate, regular rhythm, S1 normal heart sound, S2 normal heart sound, no murmurs, no rub, no gallops and no clicks Cardio Narrative: Heart rate is irregularly irregular but rate is controlled GI normal to inspection, nondistended, normoactive bowel sounds, soft to palpation and non-tender GI Narrative: Large protuberant abdomen Extremity no clubbing, cyanosis or edema Extremity Narrative: Pedal pulses and radial pulses are 2+ Neuro moves all extremities Neuro Narrative: Spontaneously moves all extremities Speech: speech normal Psych Psych Narrative: Patient sleeping Assessment & Plan Assessment/Plan (1) Metabolic encephalopathy: (2) Acute cystitis without hematuria: (3) Fall: QUALIFIERS: Encounter type: initial encounter Qualified Code(s): W19.XXXA - Unspecified fall, initial encounter (4) E. coli UTI: PLAN: Plan Acute on chronic hypercapnic respiratory failure on chronic hypoxic respiratory failure -Altered mental status likely related to marked respiratory acidosis--> now resolved -Initial ABG obtained and pH was 7.17 with a pCO2 of 107.2 and a pO2 of 74 on her baseline oxygen of 5 L--> follow-up ABG is improved and now normalized -AutoPap started stat with resolution of her acidosis--> will plan on ongoing BiPAP at 16/10 during naps and at night -Repeat blood gas was obtained with improvement in mentation is improving -Has traditionally refused to wear CPAP and has required rescue BiPAP previously -I did discuss extensively with the granddaughter who was at the bedside at the time of the event and has knowledge of what is going on that if she continues not to wear her CPAP that this is going to happen repetitively--> she did voice understanding and we will trying to get her on CPAP at night on a consistent basis -Would avoid sedating medication such as benzodiazepines and narcotics E. Coli UTI -trujillo sensitive e. coli -Continue ceftriaxone with plan to d/c with keflex to complete a 5 day course -Continue probiotics as ordered Toxic/metabolic encephalopathy -CT of the brain on admission was unremarkable -Now back to baseline -Patient with dementia at baseline so we will start some low-dose risperidone at night hopefully this will help with her BiPAP tolerance - Dizziness -Not vertiginous from what it sounds -Seems to be resolved -ECHO shows and EF of 60% with MV thickening, RVSP 45 mmHg Nocturnal hypoxia/OCTAVIO untreated due to compliance -Highly suspect patient has obstructive sleep apnea that is untreated CKD Stage 3b -sCr fluctuates some but currently c/w baseline -montior -Up a little bit today -Will continue to monitor and may be need some hydration tomorrow depending on trends Chronic macrocytic anemia -B12 and folate are normal -Previous imaging showed cirrhosis of the liver related to nonalcoholic fatty liver disease -Hemoglobin has been stable -Repeat lab in a.m. 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 -Currently compensated -Continue home diuretics History of atrial fibrillation -In sinus rhythm on presentation but currently in a-fib rate controlled -Continue home apixaban -Patient is not on any rate controlling medication Aortic valve stenosis -Most recent echo from 09/01/2024 showed an EF of 60% with indeterminate diastolic dysfunction inability to estimate RV systolic pressure however highly suspect elevated, and mild to moderate diffuse aortic valve thickening and stenosis and severe biatrial dilation -Mean aortic valve area was estimated to be 1.2 cm at that time -repeat echo shows area of 1.1 with stable estimated gradients Abnormal TSH with history of hypothyroidism -Free T4 off slightly -would recheck in 6-8 weeks as an outpt -continue levothyroxine 150 mcg daily Hyperlipidemia/essential hypertension -Hold Lasix -Patient is on no other hypertensive medications -Patient is intolerant to statins DM-2 -Hemoglobin A1c on presentation was 7.2 -Metformin 500 mg p.o. was her baseline medication -Hold oral agent -Accu-Cheks ordered before meals and at bedtime -Continue SSI as ordered -A.m. fasting sugars 90 Osteoarthritis -As needed Tylenol available Morbid obesity -BMI is 52.1 -Recommend weight loss -Complicates treatment, prognosis, outcomes DVT prophylaxis -Patient is fully anticoagulated with apixaban CODE STATUS -DNR CCA with no intubation Disposition: Reevaluate again tomorrow and if stable will plan for discharge. Patient is high risk for readmission due to her noncompliance with PAP therapy at baseline Charges/Coding Visit Charges Inpatient E&M: 33226 Subs Hosp L2
[2025-01-07 16:53] LABS: Bedside Glucose 92 mg/dL (74-106)
[2025-01-07] MEDS: RisperiDONE 1 MG Tablet PO (21:04)
[2025-01-07] MEDS: Ceftriaxone 1 GM/50 ML BAG IV (21:05)
[2025-01-07] MEDS: 0.9% Saline Lock 10 ML Syringe IV (21:19)
[2025-01-08] VITALS (12 sets, daily range): BP systolic 100–121; BP diastolic 72–77; PULSE 90–110; RESP 14–26; TEMP 36.5–36.8; O2SAT 35–99; BMI 52.3
[2025-01-08 00:28] LABS: Bedside Glucose 101 mg/dL (74-106)
[2025-01-08] MEDS: Albuterol 2.5 MG/3 ML VIAL.NEB. INHALATION (01:50)
[2025-01-08 06:28] LABS: Bedside Glucose 77 mg/dL (74-106)
[2025-01-08 06:47] LABS: Allen Test Positive; Base Excess 15 mmol/L (-2 to +2); Bicarbonate 40.1 mmol/L (22-26); Blood Gas Specimen Type ART; Comment 450 14 35 1.15; Mode Not entered; O2 Delivery Device BiPAP; PO2 79 mmHG (75-100); RR 14; SITE L Radial; SO2 95 % (95-99); Total Carbon Dioxide 42 mmol/L; pCO2 65.2 mmHg (35-45)
[2025-01-08 07:24] LABS: Hematocrit 34.4 % (37-47); Hemoglobin 10.3 g/dL (12.0-15.0); Mean Corp Hgb Conc 29.9 g/dL (32-36); Mean Corpuscular Hgb 30.4 pg (27.0-32.0); Mean Corpuscular Volume 101.5 fL (81-99); Mean Platelet Vol. 11.5 fl (6.2-12.0); Platelet Count 121 K/mm3 (150-450); RBC Distribution Width CV 15.1 % (11.6-14.6); RBC Distribution Width SD 54.2 fl (35.1-43.9); Red Blood Count 3.39 M/mm3 (4.2-5.4); White Blood Count 6.6 K/mm3 (4.4-11.0)
[2025-01-08 08:04] LABS: Anion Gap 11 (5-15); BUN 42 mg/dL (4-19); BUN/Creat Ratio 32.7 RATIO (10-20); Calcium,Total 9.2 mg/dL (7.6-11.0); Carbon Dioxide 32.6 mmol/L (21.0-32.0); Chloride 98 mmol/L (98-108); Creatinine, Serum 1.28 mg/dL (0.70-1.20); EST Glomerular Filtration Rate 41 (>60); Estimated Creatinine Clearance 45.67 ml/min (50-250); Glucose 75 mg/dL (70-99); Potassium 4.7 mmol/L (3.3-5.1); Sodium Level 141 mmol/L (133-145)
[2025-01-08] MEDS: Nystatin Powder 15gm Bottle 1 APPLIC TOPICAL (10:45)
[2025-01-08] MEDS: Menthol/Lanolin/Calamine/Znox 113 GM Tube 1 APPLIC TOPICAL (10:45)
[2025-01-08] MEDS: APIXABAN 5 MG TABLET PO (10:46)
[2025-01-08] MEDS: Metoprolol(XL)Succ 50 MG Tablet PO (10:46)
[2025-01-08 11:49] LABS: Bedside Glucose 92 mg/dL (74-106)
--- NOTE | 2025-01-08 14:55 | TREXTCAR_ITS ---
Diet Diet Order/Speech Therapy: 01/08/25 13:55 Diet: Consistent Carb - Calorie Controlled Food consistency:: Pureed Liquid Consistency:: Regular/Thin Dietary Modifications:: Cardiac / Heart Healthy Diet Comments: NPO if on bipap How many daily calories?: 1800 calorie Routine Orders/Code Status Suppository Frequency: Daily PRN Routine Lab Work: CBC (5 days) and BMP (5 days) Code Status: DNRCC-A DC O2, CPAP, BIPAP needs Home O2 Discharge instructions: Yes Type of respiratory needs?: Oxygen (5) Oxygen frequency: Continuous Continuous oxygen liters per minute: 5 and BiPAP (16/10) BiPAP oxygen liters per minute: 5 L bleed BiPAP instructions: Patient to wear BiPAP at at bedtime and with all naps Suggestions for Active Care Change Position every (hours): 2 Hours to sit in a chair: 3 Times a day to sit in chair: 1 Therapies Weight Bearing: Full weight bearing Physical Therapy: Eval and Treat Occupational Therapy: Eval and Treat Speech Therapy: Eval and Treat Problem/Diagnosis (1) Metabolic encephalopathy: Status: Acute Code(s): G93.41 - Metabolic encephalopathy (2) Acute cystitis without hematuria: Status: Acute Code(s): N30.00 - Acute cystitis without hematuria (3) Fall: Status: Acute Code(s): W19.XXXA - Unspecified fall, initial encounter (4) E. coli UTI: Status: Acute Code(s): N39.0 - Urinary tract infection, site not specified; B96.20 - Unspecified Esc herichia coli [E. coli] as the cause of diseases classified elsewhere Allergies/Procedures Done in Hospital Allergies gabapentin Allergy (Unknown, Verified 01/03/25 17:34) Unknown meloxicam Adverse Reaction (Unknown, Verified 01/03/25 17:34) Unknown [id number] Reductase Inhibitor Adverse Reaction (Unknown, Verified 01/03/25 17:34) Unknown Procedures: 2-D Echocardiogram and - (Foot x-ray/knee x-ray/CT brain x 2/chest x-ray) Type of Care/Length of Stay Estimated LOS: Convalescent Care Less Than 30 days Type of Care Needed: Skilled Rehab Potential: Fair Prognosis: Poor Additional Orders/Day of Discharge Day of Discharge: 01/08/25 Dietary and Speech Recommendations Dietitian Recommendations/Changes: Continue 1800CCD/Cardiac diet to manage medical conditions. Follow Up Care Please follow up with your Primary Care Physician in: 1 week Discharge Plan Admission Admit Date/Time: 01/03/25 22:34 Attending Provider: Dominga Payne Primary Care Provider: Mihaela Ybarra Consulting Providers: Nico Kinsey Discharge Orders/Prescriptions Prescriptions: No Action metformin 500 mg tablet extended release 24 hr 500 mg PO BREAKFAST apixaban 5 mg tablet 5 mg PO BID Qty: 60 11RF furosemide 40 mg tablet 40 mg PO DAILY levothyroxine 150 mcg tablet 150 mcg PO DAILY metoprolol succinate 50 mg tablet extended release 24 hr 50 mg PO DAILY levothyroxine 175 mcg tablet PO Referrals / Follow Up: Mihaela Ybarra MD [Primary Care Provider] - (3) Fall Qualifiers: Encounter type: initial encounter Qualified Code(s): W19.XXXA - Unspecified fall, initial encounter
--- NOTE | 2025-01-08 14:59 | PCM.DC.SUM ---
Providers Date of Admission: 01/03/25 Date of Discharge: 01/08/25 Primary Care Physician: Dr. Mihaela Ybarra MD Reason For Visit: UTI WITH METABOLIC ENCEPHALOPATHY Diagnosis Discharge Diagnosis (1) Metabolic encephalopathy: Status: Acute Code(s): G93.41 - Metabolic encephalopathy (2) Acute cystitis without hematuria: Status: Acute Code(s): N30.00 - Acute cystitis without hematuria (3) Fall: Status: Acute Code(s): W19.XXXA - Unspecified fall, initial encounter Qualifiers: Encounter type: initial encounter Qualified Code(s): W19.XXXA - Unspecified fall, initial encounter (4) E. coli UTI: Status: Acute Code(s): N39.0 - Urinary tract infection, site not specified; B96.20 - Unspecified Escherichia coli [E. coli] as the cause of diseases classified elsewhere Medications at Discharge Home Medications apixaban 5 mg tablet 5 mg PO BID BLOOD THINNER #60 tabs 11/11/23 metformin 500 mg tablet,extended release 24 hr 500 mg PO BREAKFAST DIABETES 11/11/23 furosemide 40 mg tablet 40 mg PO DAILY EDEMA 07/13/24 levothyroxine 150 mcg tablet 150 mcg PO DAILY disorder of thyroid gland 01/03/25 levothyroxine 175 mcg tablet mcg PO thyroid 01/05/25 metoprolol succinate 50 mg tablet,extended release 24 hr 50 mg PO DAILY blood pressure/heart 01/05/25 acetaminophen 325 mg tablet 650 mg (2 x 325 mg) PO Q6H PRN PRN Pain 1-10 Or Fever #1 TAB 01/08/25 albuterol sulfate 2.5 mg/3 mL (0.083 %) solution for nebulization 2.5 mg (3 mL) inhalation Q2H PRN PRN SOB &/OR WHEEZING #75 mL 01/08/25 guaifenesin 100 mg/5 mL oral liquid 100 mg (5 mL) PO Q4H PRN PRN Cough #1,000 mL 01/08/25 risperidone 1 mg tablet 1 mg PO QHS #0 tabs 01/08/25 Hospital Course Operations None Procedures 2-D Echocardiogram, EKG and - (CT brain x 2/foot x-ray/knee x-ray/chest x-ray) Summary of Care Provided Minutes Spent on Discharge: 39 Hospital Course: Patient is a 84-year-old white female who presents emergency department [facility] on 01/03/2025 with chief complaint of intermittent dizzy spells. Patient reported that her symptoms began about a month prior to presentation when she developed dizzy spells that lasted about 1 to 2 minutes and then would resolve spontaneously. She also complained of possibly having some mild confusion at the time of the events. She denied a sensation of vertigo or feeling lightheaded and had a difficult time subjectively explaining what it felt like for her. She reported that it can happen daily but does not happen on a daily basis and symptoms began getting more severe so she decided to be evaluated. She did have a fall out of her bed injuring her left knee and right foot about 2 days prior to presentation however she was slow to ambulate without significant difficulty. She had no fever chills, nausea vomiting, abdominal pain, chest pain, shortness of breath, or headache. The emergency department was concerned about the patient and her having little understanding of her condition and requested case management consultation. Vital signs on presentation showed a temperature of 96.7, heart rate 101, blood pressure was 105/87, pulse ox was 98% on room air. CBC showed a normal white count and a chronic stable anemia with hemoglobin 11.6. She had a mild left shift with a 73.5% neutrophilia. She also had a monocytosis with a 10.7% monocyte count which is mild chemistry panel showed normal electrolytes with a chronically elevated serum bicarbonate 33.8. She is morbidly obese so I suspect she probably has some at least obesity hypoventilation syndrome in conjunction with probable sleep apnea. Renal function was at baseline showing a serum creatinine 1.16. Glucose was 151. Hemoglobin A1c was obtained and was found to be 7.2. She is a known diabetic. Liver functions were unremarkable. TSH was slightly elevated at 8.94 and the patient is already on levothyroxine. Her UA was suggestive of dehydration infection infection. She had a specific gravity of 1.025. Elevated serum protein. Ketones. Some minimal occult blood. Leuk esterase white cells and 4+ bacteria. CT of the brain showed chronic microvascular ischemic changes and age-related changes but was otherwise unremarkable. Foot x-ray knee x-ray and chest x-ray were unremarkable. Given her positive UA in the emergency department, urine culture was sent and she was started on ceftriaxone. Her urine culture grew out E. coli and she was treated with a 5-day course of IV ceftriaxone by the time she was discharged. On admission family was hoping that she could be placed and she was seen by physical and Occupational Therapy and deemed appropriate for ongoing rehab services. She was also seen by speech therapy on the day of discharge and there was concern about some aspiration issues. Recommended diet per speech therapy was pur?e with regular thin liquids. She developed some altered mental status on 01/06/2025 and nursing felt she may have some slurred speech so a stroke team was initially called however we obtain an ABG prior to her going down for repeat CAT scan, which was negative, and she was found to be severely hypercapnic with a pCO2 of greater than 100 and a pH of 7.17. She was placed on BiPAP continuous and slowly improved with time. Patient has traditionally been noncompliant with utilizing PAP therapy at 90 and with naps. I discussed with the family the ultimate importance of her complying with this after discharge and the fact that if she does not she will have ongoing readmissions related to hypercapnia. I did briefly discuss hospice with the granddaughter and discussed with her if she was not able to tolerate this and had recurrent issues with hypercapnia related to noncompliance we may need to have him alternate discussions with regards to goals of care and a granddaughter did voice understanding. No medication changes were made at the time of discharge. She is to have a ongoing PAP therapy at night with naps at 16/10. If she develops worsening mental status again, I would recommend a discussion briefly about hospice prior to transfer back to the emergency department as family is somewhat aware that this may be problematic moving forward. She should follow-up with a primary care physician 1 week after discharge from nursing facility. Discharge diagnoses: Acute on chronic hypercapnic respiratory failure Chronic hypoxic respiratory failure E. coli UTI Toxic/metabolic encephalopathy Dizziness Nocturnal hypoxia OCTAVIO Medical noncompliance CKD stage IIIb Chronic microcytic anemia Thrombocytopenia-chronic Cirrhosis of liver secondary to nonalcoholic fatty liver disease History of atrial fibrillation Aortic stenosis Hypothyroidism Hyperlipidemia Essential hypertension DM-2 Osteoarthritis Morbid obesity Physical Exam Const alert, no apparent distress, no limitations and well nourished; Negative for oriented x3, average body habitus or healthy appearing Constitutional Narrative: Morbidly obese, elderly, white female, sitting up in bed, family bedside, appears comfortable, nontoxic, much more awake and interactive, oriented to self, confused but interactive General Appearance: cooperative, comfortable and well developed Orientation / Consciousness: confused Nutritional Appearance: morbidly obese HEENT normocephalic, head/scalp atraumatic and moist oral mucous membranes HEENT Narrative: Mallampati 3-4, no thrush Eyes EOMs intact bilaterally and conjunctivae normal Eyes Narrative: No scleral icterus Neck supple Neck Narrative: Neck is short and thick Resp normal respiratory effort, no retractions, no use of accessory muscles and clear to auscultation bilaterally Resp Narrative: distant 2/2 body habitus Auscultation: Negative for rales, rhonchi or wheezes Cardio regular rate, S1 normal heart sound, S2 normal heart sound, no murmurs, no rub, no gallops and no clicks Cardio Narrative: Heart rate is irregularly irregular but rate is controlled GI normal to inspection, nondistended, normoactive bowel sounds, soft to palpation, non-tender and non-distended GI Narrative: Large protuberant abdomen Extremity normal to inspection, full ROM and no clubbing, cyanosis or edema Extremity Narrative: Pedal pulses and radial pulses are 2+ Skin skin turgor normal, no jaundice, no petechiae and no mottling Skin Narrative: Cutaneous candidiasis noted Neuro oriented x3, moves all extremities and no focal motor deficits Neuro Narrative: Severe generalized weakness noted but no focal deficits Speech: speech normal Psych affect normal Psych Narrative: Back to her baseline of interactivity Weight / BMI Weight Weight: 139 kg Body Mass Index (BMI) 52.3 ABG / Lab / Microbiology Data 01/08/25 04:50 01/08/25 04:50 Laboratory: Laboratory Results - last 24 hr 01/07/25 16:02: POC Glucose 92 01/07/25 21:24: POC Glucose 101 01/08/25 04:50: WBC 6.6, RBC 3.39 L, Hgb 10.3 L, Hct 34.4 L, MCV 101.5 H, MCH 30.4, MCHC 29.9 L, RDW Std Deviation 54.2 H, RDW Coeff of Pattie 15.1 H, Plt Count 121 L, MPV 11.5, Sodium 141, Potassium 4.7, Chloride 98, Carbon Dioxide 32.6 H, Anion Gap 11, BUN 42 H, Creatinine 1.28 H, Estim Creat Clear Calc 45.67 L, Est GFR (MDRD) Non-Af 41 L, BUN/Creatinine Ratio 32.7 H, Glucose 75, Calcium 9.2 01/08/25 05:58: POC Glucose 77 01/08/25 11:11: POC Glucose 92 Microbiology: Microbiology 01/03/25 20:05 Urine, Catheterized Urine Culture - Final Escherichia coli ABG: ABG 01/08/25 06:43 Specimen Type ART Sample Site L Radial pH 7.40 Bicarbonate Actual 40.1 H Total CO2 42 Base Excess 15 H O2 Saturation 95 O2 % 35.0 ABG pCO2 65.2 H ABG pO2 79 González Test Positive Respiration Rate 14 O2 Delivery Device BiPAP Vent Mode Not entered Clinical Comments 450 14 35 1.15 D/C Instructions DC O2, CPAP, BIPAP Needs Home O2 Discharge instructions: Yes Type of respiratory needs?: Oxygen (5) Oxygen frequency: Continuous Continuous oxygen liters per minute: 5 and BiPAP (16/10) BiPAP oxygen liters per minute: 5 L bleed BiPAP instructions: Patient to wear BiPAP at at bedtime and with all naps DC home with Oxygen: Yes Home O2 MD Review: I have reviewed the oxygen testing, and the patient qualifies for home oxygen equipment and portability. The patient is mobile in the home and the community. Meaningful Use Info Meaningful Use Meaningful Use Diagnoses (Choose all that apply): None applicable Ischemic Stroke Statin Dosing Therapy Reference: STATIN DOSE THERAPY REFERENCE: * Patients > 75 years receive moderate or high dose statin therapy. * Patients 75 years or YOUNGER should receive HIGH intensity statin dose unless contraindicated. You will be required to document reason for non-treatment if statin daily dose does not meet guidelines. HIGH DOSE STATIN THERAPY DAILY Atorvastatin > than or = to 40 mg Rosuvastatin > than or = to 20 mg Amlodipine + Atorvastatin > than or = to 2.5/40 mg Ezetimibe + Simvastatin 10/80 mg Simvastatin 80mg Discharge Plan Admission Admit Date/Time: 01/03/25 22:34 Primary Reason for Your Visit: Generalized weakness Attending Provider: Dominga Payne Primary Care Provider: Mihaela Ybarra Consulting Providers: Nico Kinsey Instructions Additional Instructions / Restrictions: 1. Patient must wear BiPAP with naps and at night or she will end up with hypercapnic respiratory failure Discharge Orders/Prescriptions Prescriptions: New acetaminophen 325 mg Tablet 650 mg PO Q6H PRN PRN (Reason: Pain 1-10 Or Fever) Qty: 1 0RF albuterol sulfate 2.5 mg /3 mL (0.083 %) Solution For Nebulization 2.5 mg inhalation Q2H PRN PRN (Reason: SOB &/OR WHEEZING) Qty: 75 0RF guaifenesin 100 mg/5 mL Liquid 100 mg PO Q4H PRN PRN (Reason: Cough) Qty: 1000 0RF risperidone 1 mg Tablet 1 mg PO QHS Qty: 0 0RF Continued metformin 500 mg tablet extended release 24 hr 500 mg PO BREAKFAST apixaban 5 mg tablet 5 mg PO BID Qty: 60 11RF furosemide 40 mg tablet 40 mg PO DAILY levothyroxine 150 mcg tablet 150 mcg PO DAILY metoprolol succinate 50 mg tablet extended release 24 hr 50 mg PO DAILY levothyroxine 175 mcg tablet PO Referrals / Follow Up: Mihaela Ybarra MD [Primary Care Provider] - In 1 Week (After discharge from SNF) Disposition Disposition (needs filled in before D/C Order can be placed): [facility]irement Facility Charges/Coding Visit Charges Inpatient E&M: 83850 Disch Hosp >30min
--- NOTE | 2025-01-08 15:17 | CM.UR ---
Social Work Pt is discharged. SW completed the hospital exemption in the [facility] system for today's discharge. TIFFANIE Gallegos
[2025-01-08 16:50] LABS: Bedside Glucose 92 mg/dL (74-106)
--- NOTE | 2025-01-08 16:53 | NURSING ---
Attempted to call report for pt to be d/c to [facility], after being transferred to several nurses, call ended with voicemail.
--- NOTE | 2025-01-08 19:37 | NURSING ---
[facility]
--- NOTE | 2025-01-10 14:08 | CASEMGMT ---
Social Work SW did complete the hospital exemption in the [facility] system on 01/08/2025, [facility] TIFFANIE Gallegos
== END 2025-01-08 20:27 | disposition skilled nursing facility (03) | DRG 689 ==
LOC: ED 22:07 → MS3 22:21 → PCU 01-06 10:36
PROVIDERS: Physician Assistant; Admitting Provider Internal Medicine; Emergency Provider Emergency Medicine; PCP Internal Medicine; Visit Provider Internal Medicine
DX: N30.00 Acute cystitis without hematuria (principal); J96.22 Acute and chronic respiratory failure with hypercapnia; G92.8 Other toxic encephalopathy; Z68.43 Body mass index [BMI] 50.0-59.9, adult; I48.20 Chronic atrial fibrillation, unspecified; J96.11 Chronic respiratory failure with hypoxia; D63.1 Anemia in chronic kidney disease; D69.6 Thrombocytopenia, unspecified; E11.22 Type 2 diabetes mellitus with diabetic chronic kidney disease; J44.9 Chronic obstructive pulmonary disease, unspecified; N18.32 Chronic kidney disease, stage 3b; F03.90 Unspecified dementia, unspecified severity, without behavioral disturbance, psychotic disturbance, mood disturbance, and anxiety; E03.9 Hypothyroidism, unspecified; I12.9 Hypertensive chronic kidney disease with stage 1 through stage 4 chronic kidney disease, or unspecified chronic kidney disease; K76.0 Fatty (change of) liver, not elsewhere classified; I35.0 Nonrheumatic aortic (valve) stenosis; E78.5 Hyperlipidemia, unspecified; M17.11 Unilateral primary osteoarthritis, right knee; G47.34 Idiopathic sleep related nonobstructive alveolar hypoventilation; E66.01 Morbid (severe) obesity due to excess calories; S90.31XA Contusion of right foot, initial encounter; S80.02XA Contusion of left knee, initial encounter; W06.XXXA Fall from bed, initial encounter; G47.33 Obstructive sleep apnea (adult) (pediatric); B96.20 Unspecified Escherichia coli [E. coli] as the cause of diseases classified elsewhere; R42 Dizziness and giddiness; Z66 Do not resuscitate; Z91.198 Patient's noncompliance with other medical treatment and regimen for other reason; Z99.81 Dependence on supplemental oxygen; Z79.01 Long term (current) use of anticoagulants; Z79.84 Long term (current) use of oral hypoglycemic drugs; Z79.890 Hormone replacement therapy; Z79.899 Other long term (current) drug therapy; Z86.16 Personal history of COVID-19; Z87.891 Personal history of nicotine dependence
CPT/HCPCS: 36415; 36600; 70450; 71045; 73564; 73630; 80048; 80053; 80061; 81001; 82077; 82607; 82746; 82803; 82962; 83036; 83735; 84100; 84439; 84443; 85025; 85027; 87077; 87086; 87088; 87186; 92610; 93005; 93306; 94002; 94003; 94640; 94762; 97162; 97166; 97530; 97535; 97802; 99285; P9612; Q9957; A4216; C8929